=== PATIENT | female | born 1970 | race Caucasian/White ===

== ENCOUNTER → 2016-09-24 | Outpatient (REF) | payer MEDICARE, BC, OTHER ==
[~2016-09-24] MED LIST: AMBI10TA; AMIT10TA2 OR; ATIV1TAB2; LYRI150C; LYRI150C OR; OXYC10TA97; OXYC10TA97 OR; OXYC5CAP4; OXYC5CAP4 OR; SOMA350T; VICO5TAB
== END ==
LOC: M LAB REF 15:10
PROVIDERS: ATTEND Ophthalmology
DX: H02.834 Dermatochalasis of left upper eyelid (principal); H02.831 Dermatochalasis of right upper eyelid

== ENCOUNTER → 2018-03-14 | Outpatient (CLI) | payer MEDICARE, BC, OTHER ==
[2018-03-14 10:58] LABS: HEMATOCRIT 37.2 % (36.0-47.0); HEMOGLOBIN 12.2 g/dl (12.0-15.5); MEAN CORPUSCULAR HEMOGLOBIN 27.9 pg (27.0-33.0); MEAN CORPUSCULAR HGB CONC 32.8 g/dl (32.0-36.5); MEAN CORPUSCULAR VOLUME 84.9 fl (80.0-96.0); PLATELET COUNT, AUTOMATED 250 10^3/uL (150-450); RED BLOOD COUNT 4.38 10^6/uL (4.00-5.40); RED CELL DISTRIBUTION WIDTH 14.4 % (11.5-14.5); WHITE BLOOD COUNT 8.4 10^3/uL (4.0-10.0)
[2018-03-14 11:18] LABS: ESTIMATED AVERAGE GLUCOSE 120 MG/DL (60-110); HEMOGLOBIN A1c 5.8 %
[2018-03-14 11:32] LABS: ALBUMIN 3.5 GM/DL (3.2-5.2); ALBUMIN/GLOBULIN RATIO 1.21 (1.00-1.93); ALKALINE PHOSPHATASE 122 U/L (45-117); ALT/SGPT 19 U/L (12-78); ANION GAP 8 MEQ/L (8-16); AST/SGOT 19 U/L (7-37); BILIRUBIN,TOTAL 0.2 MG/DL (0.2-1.0); BLOOD UREA NITROGEN 10 MG/DL (7-18); CALCIUM LEVEL 7.9 MG/DL (8.5-10.1); CARBON DIOXIDE LEVEL 27 MEQ/L (21-32); CHLORIDE LEVEL 102 MEQ/L (98-107); CHOLESTEROL LEVEL 189 MG/DL (<200); CHOLESTEROL RISK RATIO 2.223 (<5); CREATININE FOR GFR 0.72 MG/DL (0.55-1.30); GLOMERULAR FILTRATION RATE > 60.0 (>58); GLUCOSE, FASTING 91 MG/DL (70-100); HDL CHOLESTEROL 85 MG/DL (>40); LDL CHOLESTEROL 71 MG/DL (<100); NON-HDL-C 104 MG/DL; POTASSIUM SERUM 4.3 MEQ/L (3.5-5.1); SODIUM LEVEL 137 MEQ/L (136-145); TOTAL PROTEIN 6.4 GM/DL (6.4-8.2); TRIGLYCERIDES LEVEL 164 MG/DL (<150)
[2018-03-14 11:33] LABS: TOTAL 25(OH) VITAMIN D 60.7 NG/ML (30.0-100.0)
== END ==
LOC: M LAB 09:41
DX: I10 Essential (primary) hypertension (principal); R53.83 Other fatigue; E03.9 Hypothyroidism, unspecified
CPT/HCPCS: 71046

== ENCOUNTER 2019-01-13 11:59 | Inpatient (IN) | payer MEDICARE, BC, OTHER ==
[~2019-01-13] VITALS: Ht 149.9 cm; Wt 69.8 kg
[2019-01-13 12:21] VITALS: O2SAT 70
[2019-01-13] MEDS: IPRATROPIUM 0.5MG/ALBUTEROL 2.5MG INH SOL UD 3ML (DUONEB)(J7620) NEB PRN ×3 (12:40→15:35)
[2019-01-13] MEDS ORDERED: GABA600T4 PO (12:41)
[2019-01-13] MEDS ORDERED: PRAV40TA2 PO (12:41)
[2019-01-13] MEDS ORDERED: AMLO5TAB6 PO (12:41)
[2019-01-13] MEDS ORDERED: MORP30TASA PO (12:41)
[2019-01-13] MEDS ORDERED: PANT40TA3 PO (12:41)
[2019-01-13] MEDS ORDERED: ROPI1TAB PO (12:41)
[2019-01-13] MEDS ORDERED: VITA500045 PO (12:41)
[2019-01-13] MEDS ORDERED: OXCA150T21 OR (12:41)
[2019-01-13] MEDS ORDERED: FLUO20CA19 PO (12:41)
[2019-01-13] MEDS ORDERED: OXYC-517 PO (12:41)
[2019-01-13] MEDS ORDERED: methylPREDNISolone INJ 125 MG/2 ML VIAL (J2930) IV ONE (12:45)
[2019-01-13 12:48] LABS: BASO # 0.1 10^3/uL (0.0-0.2); BASO % 0.3 % (0.0-1.0); HEMATOCRIT 34.9 % (36.0-47.0); HEMOGLOBIN 11.7 g/dl (12.0-15.5); LYMPH # 1.7 10^3/uL (1.5-5.0); LYMPH % 7.9 % (24.0-44.0); MEAN CORPUSCULAR HEMOGLOBIN 28.1 pg (27.0-33.0); MEAN CORPUSCULAR HGB CONC 33.5 g/dl (32.0-36.5); MEAN CORPUSCULAR VOLUME 83.7 fl (80.0-96.0); MONO # 0.9 10^3/uL (0.0-0.8); MONO % 4.1 % (0.0-5.0); NEUTROPHILS # 18.9 10^3/uL (1.5-8.5); NEUTROPHILS % 86.9 % (36.0-66.0); PLATELET COUNT, AUTOMATED 326 10^3/uL (150-450); RED BLOOD COUNT 4.17 10^6/uL (4.00-5.40); WHITE BLOOD COUNT 21.8 10^3/uL (4.0-10.0)
--- NOTE | 2019-01-13 12:50 | REP ---
Portable chest, 12:36 p.m., single AP view with the the patient sitting: Comparison is the PA and lateral chest of 03/14/2018. There is an incomplete inspiratory effort with under aeration of the lung vu. Cardiac size is normal. The margaret, mediastinum, skeletal structures are unremarkable. There is a electronic power pack superimposed over the left lung apex. Impression: Incomplete inspiratory effort. Lung vu are under aerated. Electronically Signed by Krish Lucia MD 01/13/2019 12:42 P
[2019-01-13 13:27] LABS: ALBUMIN 2.6 GM/DL (3.2-5.2); ALT/SGPT 30 U/L (12-78); BILIRUBIN,DIRECT < 0.1 MG/DL (0.0-0.2); BILIRUBIN,TOTAL 0.8 MG/DL (0.2-1.0); BLOOD UREA NITROGEN 10 MG/DL (7-18); CALCIUM LEVEL 8.6 MG/DL (8.5-10.1); CARBON DIOXIDE LEVEL 23 MEQ/L (21-32); CHLORIDE LEVEL 97 MEQ/L (98-107); CK-MB VALUE MASS 6.6 NG/ML (<3.6); CPK CREATINE PHOSPHOKINASE 611 U/L (26-192); CREATININE FOR GFR 0.73 MG/DL (0.55-1.30); GLOMERULAR FILTRATION RATE > 60.0 (>51); GLUCOSE, FASTING 103 MG/DL (70-100); MB/CK RELATIVE INDEX 1.08 (< OR =4); NT-PRO BNP 3987 PG/ML (<125); POTASSIUM SERUM 5.9 MEQ/L (3.5-5.1); SODIUM LEVEL 130 MEQ/L (136-145); THYROID STIMULATING HORMONE 0.272 uIU/ML (0.358-3.740); TOTAL PROTEIN 6.9 GM/DL (6.4-8.2); TROPONIN I < 0.02 NG/ML (< 0.10)
[2019-01-13] MEDS ORDERED: ISOVUE-370 76% 100ML VIAL (Q9967) As Ordered ONE (13:42)
[2019-01-13] MEDS ORDERED: BIOT2500 PO (13:45)
[2019-01-13] MEDS ORDERED: CYAN100050 PO (13:45)
[2019-01-13] MEDS ORDERED: NS 1,910 ML in IV 1 EA IV ONE (14:30)
[2019-01-13] MEDS ORDERED: PIPERACILLIN/TAZOBACTAM SOD 4.5 GM in D5W MINI-BAG PLUS 50 ML IV ONE (14:30)
--- NOTE | 2019-01-13 15:28 | REP ---
CT ANGIOGRAM OF THE CHEST: TECHNIQUE: Axial contrast enhanced images from the thoracic inlet to the upper abdomen using 100 mL Isovue 370 intravenous contrast material with multiplanar reformations. There is no CT evidence of pulmonary embolism. There is no thoracic aortic aneurysm or dissection. Heart is not significantly enlarged. There is no pleural or pericardial effusion. No significant mediastinal, hilar, or chest wall lymphadenopathy is seen. Diffuse alveolar infiltrates are seen bilaterally. The patient has had a prior cholecystectomy. Other visualized upper abdominal structures appear unremarkable. IMPRESSION: No CT evidence of pulmonary embolism or aortic dissection. Heart normal in size. No pleural effusion. Diffuse bilateral alveolar infiltrates. Electronically Signed by Krish Dunham MD 01/14/2019 06:08 P
[2019-01-13] MEDS ORDERED: ALBUTEROL SULFATE 2.5 MG/0.5 ML INH NEB SOLN NEB PRN (16:00)
[2019-01-13] MEDS: NS 1,000 ML IV SCH (16:00)
[2019-01-13] MEDS: IPRATROPIUM 0.5MG/ALBUTEROL 2.5MG INH SOL UD 3ML (DUONEB)(J7620) NEB SCH ×3 (16:00→23:30)
[2019-01-13] MEDS: GABAPENTIN 400 MG CAP PO SCH ×2 (17:59→20:01)
[2019-01-13 18:41] LABS: AMPHETAMINES LEVEL URINE NEGATIVE (NEGATIVE); BARBITURATES URINE NEGATIVE (NEGATIVE); BENZODIAZEPINES URINE NEGATIVE (NEGATIVE); CANNABINOIDS URINE NEGATIVE (NEGATIVE); COCAINE METABOLITE URINE NEGATIVE (NEGATIVE); METHADONE URINE NEGATIVE (NEGATIVE); OPIATES URINE POSITIVE (NEGATIVE); PHENCYCLIDINE URINE NEGATIVE (NEGATIVE)
[2019-01-13 19:04] VITALS: BP 147/69
[2019-01-13] MEDS: methylPREDNISolone INJ 125 MG/2 ML VIAL (J2930) IV SCH (19:59)
[2019-01-13 20:00] VITALS: BP 112/57
[2019-01-13] MEDS: MORPHINE 15 MG SA TAB PO SCH (20:01)
[2019-01-13] MEDS: PIPERACILLIN/TAZOBACTAM SOD 3.375 GM in D5W MINI-BAG PLUS 50 ML IV SCH (20:01)
[2019-01-13] MEDS: PRAVASTATIN 20 MG TAB PO SCH (20:01)
[2019-01-13] MEDS: PANTOPRAZOLE 40MG TAB (PROTONIX) PO SCH (20:02)
[2019-01-13] MEDS: FLUoxetine 20 MG CAP PO SCH (20:02)
[2019-01-13] MEDS: rOPINIRole 1MG TAB PO SCH (20:02)
--- NOTE | 2019-01-13 20:38 | ECGEPIP ---
[facility] - ED Test Date: 2019-01-13 Pat Name: NEREYDA TREVIZO Department: Room: - Gender: Female Medication Specialist: nancy : 1970 Requested By: NEVAEH Marcus Order Number: [id number] Reading MD: Montez Vo Measurements Intervals Renick Rate: 85 P: 21 MN: 112 QRS: 0 QRSD: 94 T: 13 QT: 393 QTc: 469 Interpretive Statements SINUS RHYTHM WITH SHORT MN INTERVAL MODERATE VOLTAGE CRITERIA FOR LVH, CONSIDER NORMAL VARIANT BENIGN EARLY REPOLARIZATION SIMILAR TO 03/14/18 Electronically Signed on 01-13-2019 20:37:45 EDT by Montez Vo
[2019-01-13] MEDS: OXcarbazepine 150 MG TAB PO SCH (20:54)
--- NOTE | 2019-01-13 20:56 | CR ---
DATE OF CONSULTATION: 01/13/2019 Patient is a 48-year-old female with past medical history of hypertension, cervical neuralgia, chronic pain medications, and presented to [facility] Emergency Room (ER) due to dyspnea for about a month that has become continuous for the past week. Patient reported initially that she had dyspnea for about a month, and she then stated that the dyspnea has been gradually worsening since summer. Patient has productive cough with dark/green-colored sputum. She also reported intermittent fever for the past 2 weeks with peak at 104 Fahrenheit. Patient had a fever the night prior to admission at 102.8 Fahrenheit. She also reported feeling cold with rigors. Night sweats were also present. Denies any chest pain; however, reported heaviness in the retrosternal region. For her dyspnea, reported aggravating factor including walking and lying down, alleviating factor of the dyspnea including sitting up. Denies any nausea, vomiting, or palpitations. It was noted upon presentation in the ER patient had soft blood pressure around 102/50, and patient also reported lightheadedness and dizziness as well. In the ER, patient's oxygen saturation was down to 70% on room air. With oxygen, oxygen saturation increased to about 92%. Patient was subsequently admitted to the hospital, and the pulmonary team was called for a consultation. Patient reported one pack per day tobacco use for the past 36 years. She reported she was trying to switch to electronic cigarettes. She reported electronic cigarette use for the past 2 years and last vaped a few weeks ago. She stopped, as she could not inhale the vape due to coughing. Patient reported the last vape more than 90 days ago. Patient denies any recent travel history or any travel history outside of the [facility] within the past year. Denies any recent sick contacts. PAST MEDICAL HISTORY: 1. Osteoarthritis of the neck. 2. Trochanteric bursitis of the left hip. 3. History of sinusitis. 4. History of bronchitis. 5. History of insomnia. 6. History of appendicitis. 7. History of reported cholelithiasis. 8. 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 9. Tobacco use disorder. 10. Restless leg syndrome. 11. Vitamin D deficiency. 12. Occipital neuralgia. PAST SURGICAL HISTORY: 1. Two sections, one in 1990, one in 1992. 2. Appendectomy in 1981. 3. Cholecystectomy in 1991. 4. Multiple cranial surgeries, reported to be 11 of them done in [place] with two of them for decompression. The rest were reported to be nerve stimulator insertion and removal. It was noted that patient is also s/p trigeminal nerve release and scar neuroma excision. Currently has a dorsal column stimulator at the back of neck HOME MEDICATIONS: Amlodipine, Biotin, vitamin B12, vitamin D2, fluoxetine, gabapentin, morphine sulfate ER, oxcarbazepine, oxycodone, pantoprazole, pravastatin, ropinirole. ALLERGIES: Denies any known drug allergies. SOCIAL HISTORY: Patient smokes a pack of cigarettes per day for the past 36 years. Reported rarely drinks alcohol. She uses medical marijuana. She also uses electronic cigarettes for the past 2 years and recently quit. Reported last use more than 90 days ago. Patient has two daughters. Has two dogs that are vaccinated at home. Denies any other pets, including birds. Denies any recent sick contacts. It was noted that the patient's daughters were having sinusitis symptoms and were recently treated with antibiotics; however, they reported minimal contact with patient for the past month. REVIEW OF SYSTEMS: Positive for fever and feeling cold. Positive for night sweats. Denies rigors. Denies any weight changes. Chest: Positive for chest heaviness. Denies any chest pain. Lungs: Positive for shortness of breath and orthopnea. Musculoskeletal: Positive for bilateral osteoarthritis of the wrists and hands. Neurologic: Reported positive numbness or tingling in distal interphalangeal (DIP) digits, extending distally to finger tips. All other positive review of systems were listed in history of present illness (HPI). FAMILY HISTORY: Father from renal cell carcinoma at the age of 4444 years old. Mother has chronic obstructive pulmonary disease (COPD), hypertension, asthma, and pancreatic cancer. Denies any autoimmune family history, including mixed connective tissue disease. PHYSICAL EXAMINATION: VITAL SIGNS: Temperature 97.6, pulse 80, respiratory rate 28, blood pressure 105/59, pulse oximetry 91% on 6 liters nasal cannula. GENERAL: Patient is alert. Appeared to be in mild distress. She is lying in the bed with daughter in exam room. HEENT: Head normocephalic, atraumatic. Nasal cannula in place. Pupils equal and round bilaterally. Nasal mucosa appears to be moist and pink. NECK: Supple. Trachea midline. No obvious jugular venous distention (JVD) noted. CHEST: Fine crackles bilaterally with diffuse fine crackles on the left and fine crackles extending distally to upper two-third of the lung field on right. No dullness to percussion bilaterally. Mild accessory muscle use. Symmetrical excursion. Normal inspiratory to expiratory (I-to-E) ratio. HEART: Regular rate and rhythm. No murmur. Normal S1, S2. No rubs or gallops. ABDOMEN: Soft, nontender. No guarding or distention noted. EXTREMITIES: Bilateral radial pulse and pedal pulse palpated and equal. No obvious edema or swelling noted in bilateral lower extremities. LABORATORY DATA: CBC: WBC 21.8, hemoglobin 11.7, hematocrit 34.9. Platelets 326. BMP: Sodium 130, potassium 5.9, chloride 97, carbon dioxide 23, anion gap 10, BUN 10, creatinine 0.73, GFR greater than 60, fasting glucose 103, lactic acid 3.5; followup at 4 hours was 1.3. Calcium 8.6. Direct bilirubin less than 0.1, AST 97, ALT 30, alkaline phosphatase 107, total creatine kinase 611, CK-MB 6.6, troponin less than 0.02. BNP 3987, total protein 6.9, albumin 2.6, procalcitonin pending. TSH 0.272. Toxicology screen positive for urine opiates. Negative for methadone, barbiturates, PCP, amphetamine, benzodiazepine, cocaine, and cannabinoids. Urine Legionella antigen pending. Blood gas shows pH 7.43, pO2 of 57, pCO2 of 33, bicarbonate 22. CTA showed bilateral infiltrates, more prominent in the superior lung vu. Chest x-ray showed lung vu under aerated. I reviewed chest CTA with the supervising attending, Dr. Barrera. ASSESSMENT AND PLAN: Patient is a 48 year old female with chronic tobacco use history about 1 packX 36 years history and 2 year of electronic cigarette use presented to [facility] ER due to dyspnea. Patient was noted to be hypotensive in the ER and received fluid bolus Oxygen saturation upon presentation on room air was around 70%. Her oxygen saturation improved to about 91% on oxygen support(6L nasal cannula), and CTA showed bilateral pulmonary infiltrates. 1. Acute hypoxic respiratory failure secondary to cryptogenic organizing pneumonia, likely due to vape use. Chest CTA showed bilateral infiltrates, more prominent on superior lung vu. Patient was originally saturating in 70% on room air. With oxygen support, patient is currently saturating well, around 91%-92% on 6 liters of nasal cannula. Other possible etiologies, although less likely, including histo, blasto, coccidiomycosis infection. Patient reported no travel history outside of the [facility] within the past year. It was noted that patient had prior hospitalizations, which was reported to be "fluid around the heart." Patient was transferred to [facility] at that time. She reported she received antibiotics without any pericardiocentesis. Orders to obtain inpatient records for her hospitalization at [facility] in 2014 was ordered. Respiratory virus panel was negative with two blood sugar pending. Procalcitonin also pending. Solu-Medrol 60 mg intravenous (IV) every 6 scheduled was ordered by the hospitalist team, and patient will also continue the nebulized treatment. Legionella urine antigen also pending. Oxygen therapy ordered. It was noted that patient initially had lactic acidosis with lactic acid at 3.5, however 4 hours follow-up was 1.3 2. Tobacco use disorder. Patient has a history of tobacco use, one pack per day for the past 36 years. Consider nicotine patch as needed for craving. 3. Electronic cigarettes/vape use. Patient reported vape use for the past 2 years. It is questionable that cryptogenic organizing pneumonia is due to the vape use. 4. Electrolyte disturbance, including hyponatremia and hyperkalemia. Potassium is 5.9 with sodium 130. Patient is currently on normal saline at rate of 100 mL per hour. Patient was in sinus rhythm at the time of the examination without any palpitations. It is questionable whether patient has some underlying adrenal insufficiency. 5. Elevated creatine kinase. Patient's creatine kinase is at 611. Will order urine myoglobin to rule out rhabdomyolysis, although it is unlikely. 6. Deep vein thrombosis (DVT) prophylaxis, sequential compression devices (SCDs) and thromboembolic deterrent stockings (TEDS) and Lovenox 40mg daily. 7. GI prophylaxis. Patient is on Protonix 40 mg by mouth daily. MTDD
--- NOTE | 2019-01-13 23:04 | HPEPDOC ---
General Date of Admission Jan 13, 2019 at 15:45 Date of Service: Jan 13, 2019 Chief Complaint The patient is a 48-year-old female admitted with a reason for visit of Chronic Pain. 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 It was accompanied with some nasal congestion and runny nose and some phlegm production no hemoptysis. Her SOB has been so bad that she has been unable to ambulate from bed to bathroom. She also had 2 episodes of fever at home in the past 2 weeks. Over the summer she did have 3 attacks of SOB which lasted about 2 to 3 days each time then got better spontaneously. On arrival to the ED her Spo2 was 70% in room air, she was severely tachypneic with elevated WBC and elevated lactate. Her blood pressure down trended in the ed to 90s/50s so was started on fluid loading for possible sepsis. She had a CT angio of the chest done. Which is negative for pulmonary embolism but showed diffuse pulmonary infiltrates. She was admitted for Acute hypoxic respiratory failure and possible pneumonia and sepsis. Home Medications Scheduled Amlodipine Besylate (Amlodipine Besylate) 5 Mg Tablet, 5 MG PO QHS, (Reported) Biotin (Biotin) 2,500 Mcg Capsule, 2,500 MCG PO DAILY, (Reported) Cyanocobalamin (Vitamin B-12) (Vitamin B-12) 1,000 Mcg Tablet, 1,000 MCG PO DAILY, (Reported) Ergocalciferol (Vitamin D2) (Vitamin D2) 50,000 Unit Capsule, 50,000 UNIT PO QWEEK, (Reported) SATURDAYS Fluoxetine Hcl (Fluoxetine HCl) 20 Mg Capsule, 20 MG PO BID, (Reported) Gabapentin (Gabapentin) 600 Mg Tablet, 1,200 MG PO TID, (Reported) Morphine Sulfate (Morphine Sulfate ER) 30 Mg Tablet.er, 30 MG PO BID, (Reported) Oxcarbazepine (Oxcarbazepine) 150 Mg Tablet, 450 MG OR BID, (Reported) Pantoprazole Sodium (Pantoprazole Sodium) 40 Mg Tablet.dr, 40 MG PO QPM, (Repo rted) Pravastatin Sodium (Pravastatin Sodium) 40 Mg Tablet, 40 MG PO QHS, (Reported) Ropinirole HCl (Ropinirole HCl) 1 Mg Tablet, 1 MG PO QHS, (Reported) Scheduled PRN Oxycodone HCl (Oxycodone HCl) 5 Mg Tablet, 5 MG PO Q3HP PRN for PAIN, (Reported) Allergies Coded Allergies: No Known Drug Allergies (Verified Allergy, Unknown, 01/13/19) Past Medical History Medical History Occipital neuralgia s/p trigeminal ganglion release, has dorsum column stimulator in the back of head. Scar neuroma removal from the left. Scar was upto the trigeminal ganglion. hypertension RLS Chronic opioid dependence Surgical History c sections, Hysterectomy, appendectomy, cholecystectomy, implantation of nerve stimulator, trigeminal ganglion release, scar neuroma removal, multiple injections into the scar neuroma before removal. Family History Significant Family History: COPD (mother) Social History * Smoker: current smoker (currently e cigarettetes for 2 years , greater than 1 pack/ day for 35 years. ) Alcohol: Denies Drugs: denies Recent Travel/Sick Contacts: Reports: Recent sick contacts (grand children and daughter) A-FIB/CHADSVASC A-FIB History Current/History of A-Fib/PAF?: No Review of Systems Constitutional: Reports: Chills, Fever, Malaise, Weakness, Fatigue Eyes: Denies: Pain, Vision change ENT: Reports: Sinus Congestion; Denies: Head Aches, Epistaxis Skin: Denies: Rash, Lesions, Breakdown Pulmonary: Reports: Dyspnea, Cough Cardiovascular: Reports: Palpitations, Orthopnea, Lt Headedness Gastrointestinal: Denies: Nausea, Vomiting, Abdominal Pain, Diarrhea Genitourinary: Denies: Dysuria, Frequency, Incontinence, Retention Hematologic: Denies: Bruising, Bleeding Excessively Musculoskeletal: Reports: Neck Pain Neurological: Denies: Weakness, Numbness, Change in speech, Confusion Psych: Reports: Anxiety Physical Examination General Exam: Positive: Alert, Cooperative, Severe Distress (has 2 to 3 word corsational dyspnea) Eye Exam: Positive: PERRLA, Conjunctiva & lids normal, EOMI; Negative: Sclera icteric ENT Exam: Positive: Atraumatic, Mucous membr. moist/pink, Pharynx Normal Neck Exam: Positive: Supple; Negative: JVD, thyromegaly Chest Exam: Positive: Rales (diffuse cracles bilaterally) Heart Exam: Positive: Rate Normal, Regular Rhythm, Normal S1, Normal S2; Negative: Murmurs, Rubs Telemetry: Positive: No significant arrhythmia Abdomen Exam: Positive: Normal bowel sounds, Soft; Negative: Tenderness, Hepatospenomegaly Extremity Exam: Positive: Normal pulses; Negative: Clubbing, Cyanosis, Edema Skin Exam: Positive: Nl turgor and temperature; Negative: Breakdown, Lesion Vital Signs Vital Signs Date Time Temp Pulse Resp B/P (MAP) Pulse Ox O2 Delivery O2 Flow Rate FiO2 01/13/19 15:30 90 121/65 (83) 92 Nasal Cannula 6.0 01/13/19 12:41 24 01/13/19 12:21 98 01/13/19 11:59 98.8 Laboratory Data Labs 24H Laboratory Tests 2 01/13/19 12:15: Immature Granulocyte % (Auto) 0.8, White Blood Count 21.8H, Red Blood Count 4.17, Hemoglobin 11.7L, Hematocrit 34.9L, Mean Corpuscular Volume 83.7, Mean Corpuscular Hemoglobin 28.1, Mean Corpuscular Hemoglobin Concent 33.5, Red Cell Distribution Width 15.3H, Platelet Count 326, Neutrophils (%) (Auto) 86.9H, Lymphocytes (%) (Auto) 7.9L, Monocytes (%) (Auto) 4.1, Eosinophils (%) (Auto) 0.0, Basophils (%) (Auto) 0.3, Neutrophils # (Auto) 18.9H, Lymphocytes # (Auto) 1.7, Monocytes # (Auto) 0.9H, Eosinophils # (Auto) 0.0, Basophils # (Auto) 0.1, Nucleated Red Blood Cells % (auto) 0.0, Anion Gap 10, Glomerular Filtration Rate > 60.0, Lactic Acid Level 3.5*H, Calcium Level 8.6, Aspartate Amino Transf (AST/SGOT) 97H, Alanine Aminotransferase (ALT/SGPT) 30, Alkaline Phosphatase 107, Total Bilirubin 0.8, Direct Bilirubin < 0.1, Total Creatine Kinase 611H, Creatine Kinase MB 6.6H, Creatine Kinase MB Relative Index 1.08, Troponin I < 0.02, CT-Yhv-I-Type Natriuretic Peptide 3987H, Total Protein 6.9, Albumin 2.6L, Albumin/Globulin Ratio 0.60L, Thyroid Stimulating Hormone (TSH) 0.272L 01/13/19 12:44: POC pH (Misc Panel) 7.430, POC Base Excess (Misc Panel) -2.0, POC Saturated Percent O2 (Misc) 90L, POC pO2 (Misc Panel) 57.0L, POC pCO2 (Misc Panel) 33.3L, POC HCO3 (Misc Panel) 22.1, POC Total CO2 (Misc Panel) 23.0 CBC/BMP Laboratory Tests 01/13/19 12:15 Red Blood Count 4.17, Mean Corpuscular Volume 83.7, Mean Corpuscular Hemoglobin 28.1, Mean Corpuscular Hemoglobin Concent 33.5, Red Cell Distribution Width 15.3 H, Neutrophils (%) (Auto) 86.9 H, Lymphocytes (%) (Auto) 7.9 L, Monocytes (%) (Auto) 4.1, Eosinophils (%) (Auto) 0.0, Basophils (%) (Auto) 0.3, Neutrophils # (Auto) 18.9 H, Lymphocytes # (Auto) 1.7, Monocytes # (Auto) 0.9 H, Eosinophils # (Auto) 0.0, Basophils # (Auto) 0.1 Microbiology Microbiology 01/13/19 Respiratory Virus Panel (PCR) (JAEL) - Final, Complete 01/13/19 Blood Culture, Received Pending 01/13/19 Blood Culture, Received Pending Assessment/Plan 48 year old female smoker, with PMH of occipital neuralgia s/p trigeminal gangl ion release on the left, 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 It was accompanied with some nasal congestion and runny nose and some phlegm production no hemoptysis. Her SOB has been so bad that she has been unable to ambulate from bed to bathroom. She also had 2 episodes of fever at home in the past 2 weeks. Over the summer she did have 3 attacks of SOB which lasted about 2 to 3 days each time then got better spontaneously. On arrival to the ED her Spo2 was 70% in room air, she was severely tachypneic with elevated WBC and elevated lactate. Her blood pressure down trended in the ed to 90s/50s so was started on fluid loading for possible sepsis. She had a CT angio of the chest done. Which is negative for pulmonary embolism but showed diffuse pulmonary infiltrates. The bilateral infiltrates, more prominent on superior lung vu. She was admitted for Acute hypoxic respiratory failure and possible pneumonia and sepsis. Acute respiratory failure with hypoxia pulmonary consulted appreciate input. Differentials are cryptogenic organizing pneumonia, likely due to vape use. Other possible etiologies, although less likely, including histo, blasto cocc idiomycosis infection. resp viral panel is negative urine legionella ordered Bacterial infection is less likely but will empiricaly cover with antibiotics Zosyn will get echo. almost 40 pack year smoker quit about a month ago when she could not inhale the vapor any mo Possible Sepsis though less ikely from pneumonia was hypotensive in ED imprved with IVF. continue zosyn will check procalcitonin. Hyponatremia and hyperkalemia with hypotension will add on cortisol random to the admission blood work to rule out adrenal insufficiency continue NS. Occipital neuralgia s/p trigeminal nerve release and formation of scar neuroma which was also excised now has a dorsal column stimulator at the back of neck will hald the dose of MSContin and continue with oxycodone with less frequency. Did discuss th side effects of of high doses of narcotics on breathing. Restless leg syndrome continue home med Low TSH will check free t4 and ft3 may be sick euthyroid syndrome Plan / VTE VTE Prophylaxis Ordered?: Yes MARY HEADLEY MD Jan 13, 2019 16:37
[2019-01-13 23:59] VITALS: BP 110/55
[2019-01-14] MEDS: NS 1,000 ML IV SCH ×2 (00:41→12:32)
[2019-01-14] MEDS: methylPREDNISolone INJ 125 MG/2 ML VIAL (J2930) IV SCH ×4 (00:41→18:41)
[2019-01-14] MEDS: PIPERACILLIN/TAZOBACTAM SOD 3.375 GM in D5W MINI-BAG PLUS 50 ML IV SCH ×4 (03:04→20:34)
[2019-01-14 04:00] VITALS: BP 98/58
[2019-01-14] MEDS: IPRATROPIUM 0.5MG/ALBUTEROL 2.5MG INH SOL UD 3ML (DUONEB)(J7620) NEB SCH ×5 (04:11→20:26)
[2019-01-14 05:56] LABS: BASO % 0.1 % (0.0-1.0); HEMOGLOBIN 9.9 g/dl (12.0-15.5); LYMPH # 0.9 10^3/uL (1.5-5.0); LYMPH % 4.9 % (24.0-44.0); MEAN CORPUSCULAR HEMOGLOBIN 27.5 pg (27.0-33.0); MEAN CORPUSCULAR VOLUME 83.3 fl (80.0-96.0); MONO # 0.5 10^3/uL (0.0-0.8); MONO % 2.6 % (0.0-5.0); NEUTROPHILS # 16.8 10^3/uL (1.5-8.5); NEUTROPHILS % 91.6 % (36.0-66.0); PLATELET COUNT, AUTOMATED 263 10^3/uL (150-450); WHITE BLOOD COUNT 18.3 10^3/uL (4.0-10.0)
[2019-01-14 06:33] LABS: BLOOD UREA NITROGEN 8 MG/DL (7-18); CALCIUM LEVEL 7.9 MG/DL (8.5-10.1); CARBON DIOXIDE LEVEL 24 MEQ/L (21-32); CHLORIDE LEVEL 107 MEQ/L (98-107); CREATININE FOR GFR 0.43 MG/DL (0.55-1.30); GLOMERULAR FILTRATION RATE > 60.0 (>51); GLUCOSE, FASTING 136 MG/DL (70-100); POTASSIUM SERUM 3.7 MEQ/L (3.5-5.1); SODIUM LEVEL 137 MEQ/L (136-145)
[2019-01-14 08:00] VITALS: BP 119/70
[2019-01-14 08:06] LABS: FREE T3 1.2 PG/ML (2.2-4.0); FREE T4 0.91 NG/DL (0.76-1.46); THYROID STIMULATING HORMONE 0.149 uIU/ML (0.358-3.740)
[2019-01-14 08:52] LABS: CORTISOL BASELINE 16.1 UG/DL (4.3-22.4)
[2019-01-14] MEDS: GABAPENTIN 400 MG CAP PO SCH ×3 (09:09→20:39)
[2019-01-14] MEDS: OXcarbazepine 150 MG TAB PO SCH ×2 (09:10→20:39)
[2019-01-14] MEDS: MORPHINE 15 MG SA TAB PO SCH ×2 (09:11→20:39)
[2019-01-14] MEDS: FLUoxetine 20 MG CAP PO SCH ×2 (09:12→20:39)
[2019-01-14] MEDS: ENOXAPARIN 40 MG/0.4 ML SYRINGE (J1650) SC SCH (09:12)
[2019-01-14 09:50] LABS: ERYTHROCYTE SEDIMENTATION RATE 58 mm/hr (0-30)
--- NOTE | 2019-01-14 10:38 | IPNPDOC ---
Subjective Date Seen The patient was seen on 01/14/19. Subjective Chief Complaint/HPI Still with 6 l comfort flow maintaining over 90%.at rest but spo2 drops to 70% with ambulation to bathroom even with 6 liters. Continues to have dry cough, no hemoptysis. No fever or chills, complains of pain in the back of her head and neck. She also says that her chest hurts from the coughing. Objective Physical Examination General Exam: Positive: Alert, Cooperative, Severe Distress (has 2 to 3 word corsational dyspnea) Eye Exam: Positive: PERRLA, Conjunctiva & lids normal, EOMI; Negative: Sclera icteric ENT Exam: Positive: Atraumatic, Mucous membr. moist/pink, Pharynx Normal Neck Exam: Positive: Supple; Negative: JVD, thyromegaly Chest Exam: Positive: Rales (diffuse cracles bilaterally) Heart Exam: Positive: Rate Normal, Regular Rhythm, Normal S1, Normal S2; Negative: Murmurs, Rubs Telemetry: Positive: No significant arrhythmia Abdomen Exam: Positive: Normal bowel sounds, Soft; Negative: Tenderness, Hepatospenomegaly Extremity Exam: Positive: Normal pulses; Negative: Clubbing, Cyanosis, Edema Skin Exam: Positive: Nl turgor and temperature; Negative: Breakdown, Lesion Assessment /Plan Assessment 48 year old female smoker, with PMH of occipital neuralgia s/p trigeminal ganglion release on the left, 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 It was accompanied with some nasal congestion and runny nose and some phlegm production no hemoptysis. Her SOB has been so bad that she has been unable to ambulate from bed to bathroom. She also had 2 episodes of fever at home in the past 2 weeks. Over the summer she did have 3 attacks of SOB which lasted about 2 to 3 days each time then got better spontaneously. On arrival to the ED her Spo2 was 70% in room air, she was severely tachypneic with elevated WBC and elevated lactate. Her blood pressure down trended in the ed to 90s/50s so was started on fluid loading for possible sepsis. She had a CT angio of the chest done. Which is negative for pulmonary embolism but showed diffuse pulmonary infiltrates. The bilateral infiltrates, more prominent on superior lung vu. She was admitted for Acute hypoxic respiratory failure and possible pneumonia and sepsis. Acute respiratory failure with hypoxia pulmonary consulted appreciate input. Differentials are cryptogenic organizing pneumonia due to vape use/ less likely histo, blasto coccidiomycosis infection resp viral panel is negative urine legionella ordered Bacterial infection is less likely but will empirically cover with antibiotics Zosyn will get echo. Smoking almost 40 pack year smoker had switched to e cigarettes 2 years ago. quit about 1-2 months ago when she could not inhale the vapor any more Possible Sepsis though less likely from pneumonia was hypotensive in ED imprved with IVF. Also got steroids. continue zosyn procalcitonin pending Hyponatremia and hyperkalemia with hypotension improved however pateint is getting steroids. if patient continues to have recurrence of these electrolyte abnormalities off steroids will need evaluation for adrenal insufficiency at present cortisol is normal on steroids. Occipital neuralgia s/p trigeminal nerve release and formation of scar neuroma which was also excised now has a dorsal column stimulator at the back of neck will hald the dose of MS Contin and continue with oxycodone with less frequency. Did discuss th side effects of of high doses of narcotics on breathing. Restless leg syndrome continue home med Low TSH will check free t4 and ft3 may be sick euthyroid syndrome Plan/VTE VTE Prophylaxis Ordered?: Yes VS, I&O, 24H, Fishbone Vital Signs/I&O Vital Signs Date Time Temp Pulse Resp B/P (MAP) Pulse Ox O2 Delivery O2 Flow Rate FiO2 01/14/19 04:00 97.6 77 18 98/58 (71) 94 6.0 01/13/19 18:30 Nasal Cannula 01/13/19 12:21 98 I&O- Last 24 Hours up to 6 AM 01/14/19 05:59 Intake Total 3060 ml Output Total 240 ml Balance 2820 ml Laboratory Data 24H LABS Laboratory Tests 2 01/13/19 12:15: Immature Granulocyte % (Auto) 0.8, White Blood Count 21.8H, Red Blood Count 4.17, Hemoglobin 11.7L, Hematocrit 34.9L, Mean Corpuscular Volume 83.7, Mean Corpuscular Hemoglobin 28.1, Mean Corpuscular Hemoglobin Concent 33.5, Red Cell Distribution Width 15.3H, Platelet Count 326, Neutrophils (%) (Auto) 86.9H, Lymphocytes (%) (Auto) 7.9L, Monocytes (%) (Auto) 4.1, Eosinophils (%) (Auto) 0.0, Basophils (%) (Auto) 0.3, Neutrophils # (Auto) 18.9H, Lymphocytes # (Auto) 1.7, Monocytes # (Auto) 0.9H, Eosinophils # (Auto) 0.0, Basophils # (Auto) 0.1, Nucleated Red Blood Cells % (auto) 0.0, Anion Gap 10, Glomerular Filtration Rate > 60.0, Lactic Acid Level 3.5*H, Calcium Level 8.6, Aspartate Amino Transf (AST/SGOT) 97H, Alanine Aminotransferase (ALT/SGPT) 30, Alkaline Phosphatase 107, Total Bilirubin 0.8, Direct Bilirubin < 0.1, Total Creatine Kinase 611H, Creatine Kinase MB 6.6H, Creatine Kinase MB Relative Index 1.08, Troponin I < 0.02, OF-Jbn-B-Type Natriuretic Peptide 3987H, Total Protein 6.9, Albumin 2.6L, Albumin/Globulin Ratio 0.60L, Thyroid Stimulating Hormone (TSH) 0.272L 01/13/19 12:44: POC pH (Misc Panel) 7.430, POC Base Excess (Misc Panel) -2.0, POC Saturated Percent O2 (Misc) 90L, POC pO2 (Misc Panel) 57.0L, POC pCO2 (Misc Panel) 33.3L, POC HCO3 (Misc Panel) 22.1, POC Total CO2 (Misc Panel) 23.0 01/13/19 17:20: Lactic Acid Followup at 4 Hours 1.3 01/13/19 17:56: Urine Amphetamines Screen NEGATIVE, Urine Benzodiazepines Screen NEGATIVE, Urine Opiates Screen POSITIVEH, Urine Methadone Screen NEGATIVE, Urine Barbiturates Screen NEGATIVE, Urine Phencyclidine Screen NEGATIVE, Urine Cocaine Metabolite Screen NEGATIVE, Urine Cannabinoids Screen NEGATIVE 01/14/19 05:38: Immature Granulocyte % (Auto) 0.8, White Blood Count 18.3H, Red Blood Count 3.60L, Hemoglobin 9.9L, Hematocrit 30.0L, Mean Corpuscular Volume 83.3, Mean Corpuscular Hemoglobin 27.5, Mean Corpuscular Hemoglobin Concent 33.0, Red Cell Distribution Width 15.2H, Platelet Count 263, Neutrophils (%) (Auto) 91.6H, Lymphocytes (%) (Auto) 4.9L, Monocytes (%) (Auto) 2.6, Eosinophils (%) (Auto) 0.0, Basophils (%) (Auto) 0.1, Neutrophils # (Auto) 16.8H, Lymphocytes # (Auto) 0.9L, Monocytes # (Auto) 0.5, Eosinophils # (Auto) 0.0, Basophils # (Auto) 0.0, Nucleated Red Blood Cells % (auto) 0.0 CBC/BMP Laboratory Tests 01/13/19 12:15 Red Blood Count 4.17, Mean Corpuscular Volume 83.7, Mean Corpuscular Hemoglobin 28.1, Mean Corpuscular Hemoglobin Concent 33.5, Red Cell Distribution Width 15.3 H, Neutrophils (%) (Auto) 86.9 H, Lymphocytes (%) (Auto) 7.9 L, Monocytes (%) (Auto) 4.1, Eosinophils (%) (Auto) 0.0, Basophils (%) (Auto) 0.3, Neutrophils # (Auto) 18.9 H, Lymphocytes # (Auto) 1.7, Monocytes # (Auto) 0.9 H, Eosinophils # (Auto) 0.0, Basophils # (Auto) 0.1 01/14/19 05:38 Red Blood Count 3.60 L, Mean Corpuscular Volume 83.3, Mean Corpuscular Hemoglobin 27.5, Mean Corpuscular Hemoglobin Concent 33.0, Red Cell Distribution Width 15.2 H, Neutrophils (%) (Auto) 91.6 H, Lymphocytes (%) (Auto) 4.9 L, Monocytes (%) (Auto) 2.6, Eosinophils (%) (Auto) 0.0, Basophils (%) (Auto) 0.1, Neutrophils # (Auto) 16.8 H, Lymphocytes # (Auto) 0.9 L, Monocytes # (Auto) 0.5, Eosinophils # (Auto) 0.0, Basophils # (Auto) 0.0 Microbiology Microbiology 01/13/19 Respiratory Virus Panel (PCR) (JAEL) - Final, Complete 01/13/19 Blood Culture, Received Pending 01/13/19 Blood Culture, Received Pending RAY,MARY MD Jan 14, 2019 06:23
[2019-01-14 12:00] VITALS: BP 112/58
--- NOTE | 2019-01-14 12:42 | IPN ---
DATE OF SERVICE: 01/14/2019 HISTORY OF PRESENT ILLNESS: The patient is sitting at bedside today. She reported that she still has dyspnea during rest, but it has improved compared to before hospitalization. She reported that the dyspnea is worse with exertion; however, she does not have any cough or sputum production anymore. She reported that chest heaviness is still present. Denies any chest pain. It was noted yesterday that the patient desaturates while walking; however, the patient was not wearing a pulse oximetry at that time. The patient reported that her chronic left sided occipital headache is still present, as well as her chronic decreased appetite. Denies any nausea or vomiting, lightheadedness or dizziness. It was noted that this morning the patient's blood pressure was soft, around 98/58 at 4:00 a.m. Remeasure manual blood pressure was within normal range. PHYSICAL EXAMINATION: VITAL SIGNS: Temperature 97.2, pulse 101, respiratory rate 20, blood pressure 119/70, pulse oximetry 95% on 6 liters nasal cannula. GENERAL: Alert, lying on the bed. Appears to be in mild distress. HEENT: Head is normocephalic, atraumatic. Bilateral nares patent with nasal cannula in place. Pupils are equal and round bilaterally. Mucosa appears to be moist and pink. NECK: Supple. Trachea midline. No obvious jugular venous distention (JVD) noted. CHEST: The patient continues to have fine crackles bilaterally. Symmetric chest excursion with normal I:E ratio. Mild accessory muscle use with subcostal retractions. HEART: Tachycardic. Regular rhythm. No murmur. No rubs or gallops. ABDOMEN: Soft, nontender. No guarding or distention noted. EXTREMITIES: Bilateral radial pulse present and equal. No obvious edema or swelling noted in bilateral lower extremities. LABORATORY DATA: 01/14/2019 CBC showed WBC 18.3, hemoglobin 9.9, hematocrit 33.3, platelets 263. Neutrophil predominance with neutrophil percentage 91.6. Chemistry: Sodium 137, potassium 3.7, chloride 107, carbon dioxide 24, anion gap 6, BUN 8, creatinine 0.43, fasting glucose 136, GFR greater than 60, calcium 7.9, C-reactive protein 20, TSH 0.14, Free T4 0.9, Free T3 1.2, baseline cortisol 16.1. Chest CTA was reviewed again and showed bilateral diffuse ground glass opacities, as well as bilateral bronchiectasis. ASSESSMENT AND PLAN: The patient is a 48-year-old female with chronic tobacco use history, as well as 2 years of electronic cigarette use who presented with dyspnea. She initially had periods of oxygen desaturations on room air with oxygen saturation at 70%. She remains to saturate well on 6 liters of nasal cannula. 1. Acute hypoxic respiratory failure with diffuse inflammatory process noted on lung CT, which may be secondary to chronic interstitial disease/autoimmune disease versus inhalation injury. The patient continues to saturate well on 6 liters of nasal cannula, around 95%. She reported still having some resting dyspnea that is worsened with activity; however, she reported that overall her dyspnea has improved. Inpatient records from [facility] in 2014 were obtained that showed the patient's discharge diagnosis of myopericarditis. The patient received a heart catheterization and V/Q scan, which both showed no significant abnormalities. Procalcitonin pending. The patient will continue the Solu-Medrol 60 mg IV every 6 hours, nebulized treatment, followed by Acapella. Other connective tissue disease versus other rheumatology workup was ordered, including C-ANCA, P-ANCA, HERLINDA titer, anti-double stranded DNA, anti-lopez antibody and scleroderma antibody. Rheumatoid factor, anti [employer] antibody, ESR, C-reactive protein were also ordered. Cesar's workup, scleroderma crest syndrome, lupus, rheumatoid arthritis, mixed connective tissue disease, and microscopic polyangiitis. Sputum culture and AFB culture pending. The patient reports achy pain in bilateral anterior thigh region; however, it is questionable whether the achy pain is secondary to rheumatologic disease. We will continue to followup with rheumatologic lab workup. 2. Tobacco use disorder. The patient has a history of tobacco use, one pack per day for the past 36 years. No nicotine craving has been noted. 3. Electronic cigarettes/vape use. Electronic cigarettes used for the past 2 years. The patient's dyspnea with CT lung findings may be secondary to inhalation injury. 4. Deep vein thrombosis (DVT). Lovenox 40 mg daily subcutaneous. 5. Gastrointestinal prophylaxis. Protonix 40 mg by mouth daily. MTDD
[2019-01-14 14:07] LABS: APPEARANCE, URINE CLEAR (CLEAR); BACTERIA, URINE AUTO NEGATIVE (NEGATIVE); BILIRUBIN, URINE AUTO NEGATIVE (NEGATIVE); BLOOD, URINE BLOOD NEGATIVE (NEGATIVE); COLOR, URINE YELLOW (YELLOW); GLUCOSE, URINE (UA) AUTO NEGATIVE (NEGATIVE); KETONE, URINE AUTO TRACE mg/dL (NEGATIVE); LEUKOCYTE ESTERASE, URINE AUTO NEGATIVE (NEGATIVE); NITRITE, URINE AUTO NEGATIVE (NEGATIVE); PROTEIN, URINE AUTO NEGATIVE (NEGATIVE); RBC, URINE AUTO 2 /HPF (0-3); SPECIFIC GRAVITY URINE AUTO 1.029 (1.002-1.035); SQUAMOUS EPITHELIAL CELL UR AU 3 /HPF (0-6); WBC, URINE AUTO 1 /HPF (0-3)
[2019-01-14 16:00] VITALS: BP 115/88
[2019-01-14] MEDS: oxyCODONE 5MG TAB PO PRN ×2 (16:27→21:39)
[2019-01-14 20:00] VITALS: BP 129/71
[2019-01-14] MEDS: PANTOPRAZOLE 40MG TAB (PROTONIX) PO SCH (20:37)
[2019-01-14] MEDS: PRAVASTATIN 20 MG TAB PO SCH (20:38)
[2019-01-14] MEDS: rOPINIRole 1MG TAB PO SCH (20:39)
--- NOTE | 2019-01-14 21:24 | ECHO ---
DATE OF PROCEDURE: 01/14/2019 Date of : 1970 Age: 48 REFERRING PHYSICIAN: Silvia Hitchcock MD PATIENT LOCATION: Room 3221 REASON FOR ECHOCARDIOGRAM: Shortness of breath. 2D MEASUREMENTS: IVS: 1.1 cm LV: 4.3 cm LVPW: 1.1 cm LA: 3.8 cm Aorta: 3.0 cm IVC: 2.0 cm DOPPLER MEASUREMENTS: Peak velocity across the aortic valve: 1.5 m/s Peak velocity across the LVOT: 1.3 m/s Peak gradient across the aortic valve: 9 mmHg Mean gradient across the aortic valve: 5 mmHg Mitral E: 0.95, Mitral A: 0.83 with a ratio of 1.1 Maximum tricuspid valve velocity: 3.0 m/s 2D COMMENTS: 1. Normal left ventricular size, wall thickness, and normal global left ventricular systolic function. The estimated left ventricular systolic ejection fraction is 65-70%. 2. Normal left atrium. Normal right atrium and right ventricle. 3. The atrial septum appeared to be normal without evidence of defect or shunt. 4. Normal aortic root. 5. No pericardial effusion seen. 6. Mildly calcified aortic valve with normal leaflet excursion. Mildly calcified mitral annulus with normal anterior mitral valve leaflet motion. Normal tricuspid valve. The pulmonic valve and proximal pulmonary artery branches were not well visualized. 7. The inferior vena cava was mildly enlarged, central venous pressure might be elevated. DOPPLER: It detects trace aortic regurgitation, trace mitral regurgitation, and mild tricuspid regurgitation. The calculated pulmonary artery systolic pressure varies between 40-50 mmHg. Abnormal relaxation pattern was noted across the mitral valve annulus consistent with features of grade 2 left ventricular diastolic dysfunction, left ventricular end-diastolic pressure might be elevated. IMPRESSION 1. Normal global left ventricular systolic function. There are some features of left ventricular diastolic dysfunction, grade 2. A pseudo normal pattern was noted across the mitral valve leaflets and mitral valve annulus. 2. Aortic valve sclerosis with trace aortic regurgitation and trivial aortic stenosis. 3. Mitral annulus calcification with trace mitral regurgitation. 4. Mild tricuspid regurgitation with probably moderate pulmonary hypertension. 5. The inferior vena cava was mildly enlarged, central venous pressure might be elevated.
[2019-01-14 23:59] VITALS: BP 131/70
[2019-01-15] MEDS: methylPREDNISolone INJ 125 MG/2 ML VIAL (J2930) IV SCH ×4 (00:07→18:40)
[2019-01-15] MEDS: NS 1,000 ML IV SCH (00:12)
[2019-01-15] MEDS: IPRATROPIUM 0.5MG/ALBUTEROL 2.5MG INH SOL UD 3ML (DUONEB)(J7620) NEB SCH ×7 (00:54→22:26)
[2019-01-15] MEDS: PIPERACILLIN/TAZOBACTAM SOD 3.375 GM in D5W MINI-BAG PLUS 50 ML IV SCH ×4 (03:49→21:56)
[2019-01-15 04:00] VITALS: BP 127/79
[2019-01-15] MEDS: oxyCODONE 5MG TAB PO PRN ×3 (04:00→21:57)
[2019-01-15 05:29] LABS: BASO % 0.2 % (0.0-1.0); HEMATOCRIT 29.7 % (36.0-47.0); HEMOGLOBIN 9.8 g/dl (12.0-15.5); LYMPH # 0.8 10^3/uL (1.5-5.0); LYMPH % 4.1 % (24.0-44.0); MEAN CORPUSCULAR VOLUME 84.9 fl (80.0-96.0); MONO # 0.6 10^3/uL (0.0-0.8); MONO % 3.1 % (0.0-5.0); NEUTROPHILS # 17.3 10^3/uL (1.5-8.5); NEUTROPHILS % 91.8 % (36.0-66.0); PLATELET COUNT, AUTOMATED 284 10^3/uL (150-450); WHITE BLOOD COUNT 18.8 10^3/uL (4.0-10.0)
[2019-01-15 05:52] LABS: BLOOD UREA NITROGEN 10 MG/DL (7-18); CALCIUM LEVEL 8.3 MG/DL (8.5-10.1); CARBON DIOXIDE LEVEL 27 MEQ/L (21-32); CHLORIDE LEVEL 109 MEQ/L (98-107); CREATININE FOR GFR 0.45 MG/DL (0.55-1.30); GLOMERULAR FILTRATION RATE > 60.0 (>51); GLUCOSE, FASTING 137 MG/DL (70-100); POTASSIUM SERUM 3.7 MEQ/L (3.5-5.1); SODIUM LEVEL 141 MEQ/L (136-145)
[2019-01-15 08:00] VITALS: BP 157/74
[2019-01-15] MEDS: ENOXAPARIN 40 MG/0.4 ML SYRINGE (J1650) SC SCH (08:33)
[2019-01-15] MEDS: OXcarbazepine 150 MG TAB PO SCH ×2 (08:33→21:56)
[2019-01-15] MEDS: FLUoxetine 20 MG CAP PO SCH ×2 (08:33→21:57)
[2019-01-15] MEDS: MORPHINE 15 MG SA TAB PO SCH ×2 (08:33→21:58)
[2019-01-15] MEDS: GABAPENTIN 400 MG CAP PO SCH ×3 (08:33→21:59)
--- NOTE | 2019-01-15 11:16 | IPNPDOC ---
Subjective Date Seen The patient was seen on 01/15/19. Subjective Chief Complaint/HPI Severe SOB of breath on minimal exertion. Remains of 6 liters of oxygen, no fever or chills, no cough. poor appetite, no nausea or vomiting, no abdominal pain or diarrhea. Objective Physical Examination General Exam: Positive: Alert, Cooperative, Mild Distress Eye Exam: Positive: PERRLA, Conjunctiva & lids normal, EOMI; Negative: Sclera icteric ENT Exam: Positive: Atraumatic, Mucous membr. moist/pink, Pharynx Normal Neck Exam: Positive: Supple; Negative: JVD, thyromegaly Chest Exam: Positive: Rales (diffuse cracles bilaterally on the upper part of the lungs. 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 It was accompanied with some nasal congestion and runny nose and some phlegm production no hemoptysis. Her SOB has been so bad that she has been unable to ambulate from bed to bathroom. She also had 2 episodes of fever at home in the past 2 weeks. Over the summer she did have 3 attacks of SOB which lasted about 2 to 3 days each time then got better spontaneously. On arrival to the ED her Spo2 was 70% in room air, she was severely tachypneic with elevated WBC and elevated lactate. Her blood pressure down trended in the ed to 90s/50s so was started on fluid loading for possible sepsis. She had a CT angio of the chest done. Which is negative for pulmonary embolism but showed diffuse pulmonary infiltrates. The bilateral infiltrates, more prominent on superior lung vu. She was admitted for Acute hypoxic respiratory failure and possible pneumonia and sepsis. Acute respiratory failure with hypoxia pulmonary consulted appreciate input. Differentials are cryptogenic organizing pneumonia due to vape use/ less likely histo, blasto coccidiomycosis infection resp viral panel is negative urine legionella ordered Bacterial infection is less likely but will empirically cover with antibiotics Zosyn. procalcitonin is 0.6 Echo : diastolic dysfunction grade 2 , moderate pulmonary hypertension 40 to 50 with possibly increased central venous pressure. EF normal. Smoking almost 40 pack year smoker had switched to e cigarettes 2 years ago. quit about 1-2 months ago when she could not inhale the vapor any more Possible Sepsis though less likely from pneumonia was hypotensive in ED improved with IVF. Also got steroids. continue zosyn Hyponatremia and hyperkalemia with hypotension improved however patient is getting steroids. if patient continues to have recurrence of these electrolyte abnormalities off steroids will need evaluation for adrenal insufficiency at present cortisol is normal on steroids. Occipital neuralgia s/p trigeminal nerve release and formation of scar neuroma which was also excised now has a dorsal column stimulator at the back of neck will hald the dose of MS Contin and continue with oxycodone with less frequency. Did discuss th side effects of of high doses of narcotics on breathing. Restless leg syndrome continue home med Low TSH will check free t4 and ft3 may be sick euthyroid syndrome will not start on medication right now. follow up as outpatient. Plan/VTE VTE Prophylaxis Ordered?: Yes VS, I&O, 24H, Fishbone Vital Signs/I&O Vital Signs Date Time Temp Pulse Resp B/P (MAP) Pulse Ox O2 Delivery O2 Flow Rate FiO2 01/15/19 09:55 22 3.0 01/15/19 08:00 97.2 87 157/74 (101) 96 01/13/19 18:30 Nasal Cannula 01/13/19 12:21 98 I&O- Last 24 Hours up to 6 AM 01/15/19 06:00 Intake Total 1886 ml Output Total 650 ml Balance 1236 ml Laboratory Data 24H LABS Laboratory Tests 2 01/14/19 12:29: Rheumatoid Factor < 10.0 01/15/19 05:10: Immature Granulocyte % (Auto) 0.8, White Blood Count 18.8H, Red Blood Count 3.50L, Hemoglobin 9.8L, Hematocrit 29.7L, Mean Corpuscular Volume 84.9, Mean Corpuscular Hemoglobin 28.0, Mean Corpuscular Hemoglobin Concent 33.0, Red Cell Distribution Width 15.5H, Platelet Count 284, Neutrophils (%) (Auto) 91.8H, Lymphocytes (%) (Auto) 4.1L, Monocytes (%) (Auto) 3.1, Eosinophils (%) (Auto) 0.0, Basophils (%) (Auto) 0.2, Neutrophils # (Auto) 17.3H, Lymphocytes # (Auto) 0.8L, Monocytes # (Auto) 0.6, Eosinophils # (Auto) 0.0, Basophils # (Auto) 0.0, Nucleated Red Blood Cells % (auto) 0.0, Anion Gap 5L, Glomerular Filtration Rate > 60.0, Blood Urea Nitrogen 10, Creatinine 0.45L, Sodium Level 141, Potassium Level 3.7, Chloride Level 109H, Carbon Dioxide Level 27, Calcium Level 8.3L CBC/BMP Laboratory Tests 01/15/19 05:10 Red Blood Count 3.50 L, Mean Corpuscular Volume 84.9, Mean Corpuscular Hemoglobin 28.0, Mean Corpuscular Hemoglobin Concent 33.0, Red Cell Distribution Width 15.5 H, Neutrophils (%) (Auto) 91.8 H, Lymphocytes (%) (Auto) 4.1 L, Monocytes (%) (Auto) 3.1, Eosinophils (%) (Auto) 0.0, Basophils (%) (Auto) 0.2, Neutrophils # (Auto) 17.3 H, Lymphocytes # (Auto) 0.8 L, Monocytes # (Auto) 0.6, Eosinophils # (Auto) 0.0, Basophils # (Auto) 0.0, Calcium Level 8.3 L Microbiology Microbiology 01/14/19 Acid Fast Stain, Received Pending 01/14/19 Mycobacterial Culture, Received Pending 01/14/19 Gram Stain, Received Pending 01/14/19 Sputum Culture, Received Pending 01/13/19 Respiratory Virus Panel (PCR) (JAEL) - Final, Complete 01/13/19 Blood Culture - Preliminary, Resulted No growth after 24 hours . All specim... 01/13/19 Blood Culture - Preliminary, Resulted No growth after 24 hours . All specim... MARY HEADLEY MD Jan 15, 2019 11:16
[2019-01-15 11:56] VITALS: BP 127/70
--- NOTE | 2019-01-15 12:40 | IPN ---
DATE: 01/15/2019 Ms. Colón feels somewhat better today. She still has significant dyspnea on exertion in short distances. She is also concerned because her oxygen saturations dropped with ambulation but notes "they come up quickly." Yesterday she complained of some weakness in her legs but feels that is better today. She is complaining of some abdominal soreness. She has a history of reflux but she is on her own medication in the hospital, states she has not had symptoms from that nor did she does have nausea or emesis. She still feels short of breath even at rest. She feels as if she cannot take in a deep breath. She does not have any pleuritic discomfort with taking in a deep breath. She continues to have a cough that at times is productive of a small amount of discolored sputum. No hemoptysis. No other concerns expressed. OBJECTIVE/PHYSICAL EXAMINATION: General: Ms. Colón is sitting in bed in no acute distress. She can complete full sentences. No cough with the evaluation. Vital signs: Temperature 97.2, maximum temperature (Tmax) 98, pulse 87, respiratory rate 22, SpO2 96% on high-flow at 6 liters. She is 92-93% on 3 liters. HEENT: Anicteric. Nares: Patent bilaterally. Oropharynx clear. No lesions. Neck: Supple, without apparent jugular venous distention (JVD), thyromegaly or masses. Trachea is midline. Lymphs: Without cervical or supraclavicular lymphadenopathy. Lungs: Symmetric excursion, fair air entry, fine crackles all the way up on the left and at the top about prison down from the top on the right. No apparent change in exam. No rhonchi or wheezes. Normal I:E. No accessory muscle usage or retractions. Cardiovascular: Regular rate and rhythm with a normal S1 and S2. No murmur, rub or gallop appreciated. Abdomen: Normoactive bowel sounds, soft, nondistended, nontender. Extremities: Warm and well-perfused without clubbing, cyanosis or edema. LABORATORY DATA: CBC from this morning showed a hemoglobin 9.8, hematocrit 29.7, platelet count 284,000, white blood cell count 18,800 with a differential of 92% neutrophils, 4% lymphocytes, and 3% monocytes. Chemistry show sodium 141, potassium 3.7, chloride 109, bicarbonate 27, anion gap 5, BUN 10, creatinine 0.45, glucose 137, calcium 8.3. CRP is elevated at 20.30. Procalcitonin came back 0.62. Urinalysis showed only 2 RBCs. Yesterday intake and output was 1636 in and 650 out making her positive 986. Thus far today 1130 in and 300 out making her positive 830. RF less than 10. All other labs pending. IMPRESSION: 1. Acute hypoxemic respiratory failure, unknown etiology. It is appropriately replaced. 2. Abnormal chest CT scan with ground-glass opacities in the upper lobes bilaterally and more consolidated patches in the left lower lobe with a relative sparing of the right lower lobe. This may represent two processes. She is risk for inhalation, injury explaining the bilateral upper lobe ground-glass opacities I think late earlier this year and then using E-cigarettes as recently as a couple weeks ago. She also has a history of having ground-glass opacity in the left upper lobe 5 years ago of unknown etiology. That was at the same time that she was diagnosed with probable/possible myocarditis/pericarditis. The lower lobe process that is greater on the left may be more of an acute process. She did have a moderately elevated procalcitonin. It is also possible that all of the findings are connected. 2. History of recent cigarette, E-cigarette, and vaping. 3. I suspect that there is an underlying inflammatory process as the cause of most of her changes, possibly connective tissue disorder. She gives no history suggestive of hypersensitivity, pneumonitis that I could elicit. RECOMMENDATIONS: 1. Ms. Colón appears to have some clinical improvement whether that is from the antibiotics of the lower lobe process is affective versus secondary to the systemic corticosteroids. 2. Will increase her steroids to 125 mg IV every 6 hours. I am reluctant to go higher at this time empirically particularly given the moderately elevated procalcitonin. 3. Agree with continuation of antibiotics. 4. Await the remainder of the connective tissue cascade. Her RV is negative. 5. I discussed with Ms. Colón that she may eventually require a biopsy. Given the differential, I suspect that if she needs a biopsy she may be better served by an open lung biopsy. 6. I also encouraged her to ambulate. We already discussed with her that part of how we tell she is improving would be the depths to which she would desaturate with ambulation.
[2019-01-15] MEDS ORDERED: FUROSEMIDE 20 MG/2 ML VIAL (J1940) IV ONE (12:45)
[2019-01-15] MEDS ORDERED: methylPREDNISolone INJ 125 MG/2 ML VIAL (J2930) IV SCH (13:00)
[2019-01-15 16:30] VITALS: BP 121/74
[2019-01-15] MEDS: PANTOPRAZOLE 40MG TAB (PROTONIX) PO SCH (21:56)
[2019-01-15] MEDS: PRAVASTATIN 20 MG TAB PO SCH (21:58)
[2019-01-15] MEDS: rOPINIRole 1MG TAB PO SCH (21:58)
[2019-01-15 22:00] VITALS: BP 158/73
[2019-01-16] MEDS: methylPREDNISolone INJ 125 MG/2 ML VIAL (J2930) IV SCH ×4 (00:07→19:47)
[2019-01-16] MEDS: IPRATROPIUM 0.5MG/ALBUTEROL 2.5MG INH SOL UD 3ML (DUONEB)(J7620) NEB SCH ×6 (02:54→23:38)
[2019-01-16] MEDS: PIPERACILLIN/TAZOBACTAM SOD 3.375 GM in D5W MINI-BAG PLUS 50 ML IV SCH ×4 (03:35→20:37)
[2019-01-16 05:54] LABS: BASO % 0.2 % (0.0-1.0); EOS % 0.1 % (0.0-3.0); HEMOGLOBIN 9.8 g/dl (12.0-15.5); LYMPH # 0.9 10^3/uL (1.5-5.0); LYMPH % 7.5 % (24.0-44.0); MEAN CORPUSCULAR HEMOGLOBIN 27.4 pg (27.0-33.0); MEAN CORPUSCULAR HGB CONC 32.7 g/dl (32.0-36.5); MEAN CORPUSCULAR VOLUME 83.8 fl (80.0-96.0); MONO # 0.4 10^3/uL (0.0-0.8); MONO % 3.4 % (0.0-5.0); NEUTROPHILS # 10.6 10^3/uL (1.5-8.5); NEUTROPHILS % 84.6 % (36.0-66.0); PLATELET COUNT, AUTOMATED 283 10^3/uL (150-450); RED BLOOD COUNT 3.58 10^6/uL (4.00-5.40); WHITE BLOOD COUNT 12.6 10^3/uL (4.0-10.0)
[2019-01-16 06:00] VITALS: BP 137/75
[2019-01-16 06:25] LABS: BLOOD UREA NITROGEN 11 MG/DL (7-18); CALCIUM LEVEL 8.7 MG/DL (8.5-10.1); CARBON DIOXIDE LEVEL 26 MEQ/L (21-32); CHLORIDE LEVEL 104 MEQ/L (98-107); CREATININE FOR GFR 0.73 MG/DL (0.55-1.30); GLOMERULAR FILTRATION RATE > 60.0 (>51); GLUCOSE, FASTING 182 MG/DL (70-100); POTASSIUM SERUM 3.1 MEQ/L (3.5-5.1); SODIUM LEVEL 139 MEQ/L (136-145)
[2019-01-16] MEDS ORDERED: POTASSIUM CHLORIDE 10 MEQ SR TABLET PO ONE (07:00)
[2019-01-16] MEDS ORDERED: SIMETHICONE 80 MG CHEW TAB PO PRN (07:45)
[2019-01-16] MEDS: DEXTROMETHORPHAN 60MG/10ML SUSP 90ML BTL(DELSYM) PO SCH ×2 (09:00→20:35)
--- NOTE | 2019-01-16 09:33 | REP ---
PA and lateral chest: Comparison is the portable chest of 01/13/2019. There is a large infiltrate throughout the entire right lung. There is a focal infiltrate inferiorly in the left lung. There are no pleural effusions. Cardiac size is normal. The margaret, mediastinum, skeletal structures are unremarkable. Electronic power pack is again superimposed over the left apex with leads extending into the neck. Impression: Bilateral infiltrates as described. No pleural effusions. Electronically Signed by Krish Lucia MD 01/16/2019 09:26 A
[2019-01-16] MEDS: OXcarbazepine 150 MG TAB PO SCH ×2 (09:49→20:35)
[2019-01-16] MEDS: FLUoxetine 20 MG CAP PO SCH ×2 (09:49→20:36)
[2019-01-16] MEDS: GABAPENTIN 400 MG CAP PO SCH ×3 (09:49→20:35)
[2019-01-16] MEDS: MORPHINE 15 MG SA TAB PO SCH ×2 (09:50→20:37)
[2019-01-16] MEDS: ENOXAPARIN 40 MG/0.4 ML SYRINGE (J1650) SC SCH (09:51)
--- NOTE | 2019-01-16 10:12 | IPN ---
DATE OF VISIT: 01/16/2019 I attended [facility]. T-max 96.9, blood pressure 130's, heart rate 80's, respiratory rate in the teens without any accessory muscle use. She remains on 2 liters nasal cannula. She said she is breathing a little easier this morning, but thinks her cough is worse. She still has some chest discomfort with her cough. Chest x-ray done this morning has much better inspiration compared to her portable film from several days ago. Clearly better aerated. White blood cell count 12.6, hemoglobin 9.8 and platelet count 283,000 with 84% segs, 0 bands. Sodium 139, potassium 3.1, chloride 104, CO2 26, BUN 11, creatinine 0.73. Cultures do show some yeast in her sputum. No other predominant organisms. AFB negative. On exam, she is awake, alert and appropriate. Pupils react. Sclerae clear. Trachea is in the midline. Chest shows diminished, but symmetric expansion. There are some crackles that improve with deep inspiration, but no other focal adventitious breath sounds are identified. Cardiac exam regular with no murmur or gallop. Peripheral pulses palpable. No edema. Abdomen soft, nontender, with active bowel sounds. No convincing organomegaly or masses. Extremities: Without cyanosis or clubbing. Neurologically, she is awake, alert and appropriate. Psychiatric: Normal mood and affect. Chest x-ray as outlined above. IMPRESSION: 1. Pneumonitis. 2. Hypoxemic respiratory failure. 3. Previous tobacco abuse. RECOMMENDATIONS: At this point, will continue her current IV steroids. Will add fluconazole in view of the yeast in her sputum. Will add some cough suppression. She is already on nebulized bronchodilators and will add EZ-Pap to these. I encouraged ambulation. Will continue her oxygen as is. We await further culture results. Will continue to follow her chest x-rays. He oxygenation status is reasonable for now. She is having some GI issues and I will defer these to the primary service. Ulcer and deep vein thrombosis (DVT) prophylaxis are in place. Further recommendations will be made in the progress record as new information becomes available.
[2019-01-16] MEDS: BENZONATATE 100 MG CAP PO SCH ×3 (11:00→20:36)
[2019-01-16] MEDS: VORICONAZOLE 200MG TABLET (VFEND) PO SCH ×2 (11:00→20:36)
[2019-01-16 14:00] VITALS: BP 157/83
--- NOTE | 2019-01-16 14:48 | IPNPDOC ---
Subjective Date Seen The patient was seen on 01/16/19. Subjective Chief Complaint/HPI Patient says breathing is a little better, Needing less oxygen than before. No conversational dyspnea noted. Complains of watery diarrhea since yesterday along with some abdominal soreness. No nausea or vomiting, no abdominal distension. Had 8 bowel movements yesterday and about 6 from early this morning. It is liquid brown stool small amounts each time every time she has a bout of coughing. No appetite yet. No fever or chills. Objective Physical Examination General Exam: Positive: Alert, Cooperative, No Acute Distress Eye Exam: Positive: PERRLA, Conjunctiva & lids normal, EOMI; Negative: Sclera icteric ENT Exam: Positive: Atraumatic, Mucous membr. moist/pink, Pharynx Normal Neck Exam: Positive: Supple; Negative: JVD, thyromegaly Chest Exam: Positive: Rales (diffuse cracles bilaterally on the upper part of the lungs. ), Diminished, Other (crackles at both the upper zones of the lungs at the back. 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 It was accompanied with some nasal congestion and runny nose and some phlegm production no hemoptysis. Her SOB has been so bad that she has been unable to ambulate from bed to bathroom. She also had 2 episodes of fever at home in the past 2 weeks. Over the summer she did have 3 attacks of SOB which lasted about 2 to 3 days each time then got better spontaneously. On arrival to the ED her Spo2 was 70% in room air, she was severely tachypneic with elevated WBC and elevated lactate. Her blood pressure down trended in the ed to 90s/50s so was started on fluid loading for possible sepsis. She had a CT angio of the chest done. Which is negative for pulmonary embolism but showed diffuse pulmonary infiltrates. The bilateral infiltrates, more prominent on superior lung vu. She was admitted for Acute hypoxic respiratory failure and possible pneumonia and sepsis. Watery diarrhea will send c diff pcr could be related to antibiotics. if negative will give imodium. Acute respiratory failure with hypoxia with Pneumonitis Etiology yet undetermined. Beta 1,3 D glucan and urine legionella pending. RA negative. pulmonary consulted appreciate input. Differentials are cryptogenic organizing pneumonia due to vape use/ less likely histo, blasto coccidiomycosis infection Bacterial infection is less likely but will empirically cover with antibiotics Zosyn and started on voriconazole cough suppressants. Echo : diastolic dysfunction grade 2 , moderate pulmonary hypertension 40 to 50 with possibly increased central venous pressure. EF normal. Smoking almost 40 pack year smoker had switched to e cigarettes 2 years ago. quit about 1-2 months ago when she could not inhale the vapor any more Cannot rule out Sepsis from pneumonia though less likely Sputum positive for yeast. started on Voriconazole. was hypotensive in ED improved with IVF. continue zosyn Hyponatremia and hyperkalemia with hypotension improved Occipital neuralgia s/p trigeminal nerve release and formation of scar neuroma which was also excised now has a dorsal column stimulator at the back of neck will hald the dose of MS Contin and continue with oxycodone with less frequency. Did discuss th side effects of of high doses of narcotics on breathing. Restless leg syndrome continue home med Low TSH will check free t4 and ft3 may be sick euthyroid syndrome will not start on medication right now. follow up as outpatient. Plan/VTE VTE Prophylaxis Ordered?: Yes VS, I&O, 24H, Fishbone Vital Signs/I&O Vital Signs Date Time Temp Pulse Resp B/P (MAP) Pulse Ox O2 Delivery O2 Flow Rate FiO2 01/16/19 14:00 98.4 77 22 157/83 (107) 96 2.0 01/13/19 18:30 Nasal Cannula 01/13/19 12:21 98 I&O- Last 24 Hours up to 6 AM 01/16/19 06:00 Intake Total 1600 ml Output Total 1900 ml Balance -300 ml Laboratory Data 24H LABS Laboratory Tests 2 01/16/19 05:30: Immature Granulocyte % (Auto) 4.2H, White Blood Count 12.6H, Red Blood Count 3.58L, Hemoglobin 9.8L, Hematocrit 30.0L, Mean Corpuscular Volume 83.8, Mean Corpuscular Hemoglobin 27.4, Mean Corpuscular Hemoglobin Concent 32.7, Red Cell Distribution Width 15.5H, Platelet Count 283, Neutrophils (%) (Auto) 84.6H, Lymphocytes (%) (Auto) 7.5L, Monocytes (%) (Auto) 3.4, Eosinophils (%) (Auto) 0.1, Basophils (%) (Auto) 0.2, Neutrophils # (Auto) 10.6H, Lymphocytes # (Auto) 0.9L, Monocytes # (Auto) 0.4, Eosinophils # (Auto) 0.0, Basophils # (Auto) 0.0, Nucleated Red Blood Cells % (auto) 0.2H, Anion Gap 9, Glomerular Filtration Rate > 60.0, Blood Urea Nitrogen 11, Creatinine 0.73#, Sodium Level 139, Potassium Level 3.1L, Chloride Level 104, Carbon Dioxide Level 26, Calcium Level 8.7 01/16/19 08:00: CBC/BMP Laboratory Tests 01/16/19 05:30 Red Blood Count 3.58 L, Mean Corpuscular Volume 83.8, Mean Corpuscular Hemoglobin 27.4, Mean Corpuscular Hemoglobin Concent 32.7, Red Cell Distribution Width 15.5 H, Neutrophils (%) (Auto) 84.6 H, Lymphocytes (%) (Auto) 7.5 L, Monocytes (%) (Auto) 3.4, Eosinophils (%) (Auto) 0.1, Basophils (%) (Auto) 0.2, Neutrophils # (Auto) 10.6 H, Lymphocytes # (Auto) 0.9 L, Monocytes # (Auto) 0.4, Eosinophils # (Auto) 0.0, Basophils # (Auto) 0.0, Calcium Level 8.7 Microbiology Microbiology 01/14/19 Acid Fast Stain - Final, Resulted 01/14/19 Mycobacterial Culture, Resulted Pending 01/14/19 Gram Stain - Final, Complete 01/14/19 Sputum Culture - Final, Complete Yeast Like Organism 01/13/19 Respiratory Virus Panel (PCR) ([facility]) - Final, Complete 01/13/19 Blood Culture - Preliminary, Resulted No Growth after 72 hours. All specime... 01/13/19 Blood Culture - Preliminary, Resulted No Growth after 72 hours. All specime... MARY HEADLEY MD Jan 16, 2019 14:48
[2019-01-16 20:16] LABS: CLOSTRIDIUM DIFFICILE PCR NEGATIVE (NEGATIVE)
[2019-01-16] MEDS: rOPINIRole 1MG TAB PO SCH (20:36)
[2019-01-16] MEDS: PANTOPRAZOLE 40MG TAB (PROTONIX) PO SCH (20:36)
[2019-01-16] MEDS: PRAVASTATIN 20 MG TAB PO SCH (20:36)
[2019-01-16 22:00] VITALS: BP 140/83
[2019-01-17 00:13] LABS: ANA (HEP2) Negative (.); ANCA-ATYPICAL <1:20 titer (Neg:<1:20); CYTOPLASMIC NEUTROP AB ANCA-C <1:20 titer (Neg:<1:20); PERINUCLEAR AB ANCA-P <1:20 titer (Neg:<1:20)
[2019-01-17] MEDS: methylPREDNISolone INJ 125 MG/2 ML VIAL (J2930) IV SCH ×4 (01:35→18:30)
[2019-01-17] MEDS: IPRATROPIUM 0.5MG/ALBUTEROL 2.5MG INH SOL UD 3ML (DUONEB)(J7620) NEB SCH ×6 (03:21→22:55)
[2019-01-17] MEDS: oxyCODONE 5MG TAB PO PRN (03:25)
[2019-01-17] MEDS: PIPERACILLIN/TAZOBACTAM SOD 3.375 GM in D5W MINI-BAG PLUS 50 ML IV SCH ×4 (03:26→21:50)
[2019-01-17 06:00] VITALS: BP 136/81
[2019-01-17 06:23] LABS: BASO % 0.4 % (0.0-1.0); HEMATOCRIT 32.8 % (36.0-47.0); HEMOGLOBIN 10.8 g/dl (12.0-15.5); LYMPH # 1.2 10^3/uL (1.5-5.0); LYMPH % 10.1 % (24.0-44.0); MEAN CORPUSCULAR HEMOGLOBIN 27.2 pg (27.0-33.0); MEAN CORPUSCULAR HGB CONC 32.9 g/dl (32.0-36.5); MEAN CORPUSCULAR VOLUME 82.6 fl (80.0-96.0); MONO # 0.5 10^3/uL (0.0-0.8); MONO % 4.4 % (0.0-5.0); NEUTROPHILS # 9.2 10^3/uL (1.5-8.5); NEUTROPHILS % 80.8 % (36.0-66.0); PLATELET COUNT, AUTOMATED 313 10^3/uL (150-450); RED BLOOD COUNT 3.97 10^6/uL (4.00-5.40); WHITE BLOOD COUNT 11.4 10^3/uL (4.0-10.0)
[2019-01-17 06:48] LABS: BLOOD UREA NITROGEN 9 MG/DL (7-18); CALCIUM LEVEL 8.8 MG/DL (8.5-10.1); CARBON DIOXIDE LEVEL 29 MEQ/L (21-32); CHLORIDE LEVEL 102 MEQ/L (98-107); CREATININE FOR GFR 0.64 MG/DL (0.55-1.30); GLOMERULAR FILTRATION RATE > 60.0 (>51); GLUCOSE, FASTING 131 MG/DL (70-100); POTASSIUM SERUM 3.5 MEQ/L (3.5-5.1); SODIUM LEVEL 137 MEQ/L (136-145)
[2019-01-17] MEDS: GABAPENTIN 400 MG CAP PO SCH ×3 (08:24→21:50)
[2019-01-17] MEDS: MORPHINE 15 MG SA TAB PO SCH ×2 (08:24→21:51)
[2019-01-17] MEDS: OXcarbazepine 150 MG TAB PO SCH ×2 (08:25→21:50)
[2019-01-17] MEDS: DEXTROMETHORPHAN 60MG/10ML SUSP 90ML BTL(DELSYM) PO SCH ×2 (08:25→21:49)
[2019-01-17] MEDS: ENOXAPARIN 40 MG/0.4 ML SYRINGE (J1650) SC SCH (08:25)
[2019-01-17] MEDS: FLUoxetine 20 MG CAP PO SCH ×2 (08:25→21:50)
[2019-01-17] MEDS: VORICONAZOLE 200MG TABLET (VFEND) PO SCH ×2 (08:25→21:50)
[2019-01-17] MEDS: BENZONATATE 100 MG CAP PO SCH ×3 (08:25→21:51)
--- NOTE | 2019-01-17 09:42 | IPNPDOC ---
Subjective Date Seen The patient was seen on 01/17/19. Subjective Chief Complaint/HPI feeling a little better today. Says getting less SOB on ambulating to the bathroom , good oxygenation with 2 liters of oxygen. No fever or chills, continues to have bouts of dry cough. Continues to have brown liquid stool which she says is very unusual as normal she has a bowel movement every 3 to 4 days. Objective Physical Examination General Exam: Positive: Alert, Cooperative, No Acute Distress Eye Exam: Positive: PERRLA, Conjunctiva & lids normal, EOMI; Negative: Sclera icteric ENT Exam: Positive: Atraumatic, Mucous membr. moist/pink, Pharynx Normal Neck Exam: Positive: Supple; Negative: JVD, thyromegaly Chest Exam: Positive: Rales (diffuse cracles bilaterally on the upper part of the lungs. ), Diminished, Other (crackles at both the upper zones of the lungs at the back. 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 It was accompanied with some nasal congestion and runny nose and some phlegm production no hemoptysis. Her SOB has been so bad that she has been unable to ambulate from bed to bathroom. She also had 2 episodes of fever at home in the past 2 weeks. Over the summer she did have 3 attacks of SOB which lasted about 2 to 3 days each time then got better spontaneously. On arrival to the ED her Spo2 was 70% in room air, she was severely tachypneic with elevated WBC and elevated lactate. Her blood pressure down trended in the ed to 90s/50s so was started on fluid loading for possible sepsis. She had a CT angio of the chest done. Which is negative for pulmonary embolism but showed diffuse pulmonary infiltrates. The bilateral infiltrates, more prominent on superior lung vu. She was admitted for Acute hypoxic respiratory failure and possible pneumonia and sepsis. Watery diarrhea c diff negative. could be related to antibiotics. if negative will give imodium. Acute respiratory failure with hypoxia with Pneumonitis Etiology yet undetermined. Beta 1,3 D glucan and urine legionella pending. RA negative. pulmonary consulted appreciate input. Differentials are cryptogenic organizing pneumonia due to vape use/ less likely histo, blasto coccidiomycosis infection Bacterial infection is less likely but will empirically cover with antibiotics Zosyn and started on voriconazole cough suppressants. Echo : diastolic dysfunction grade 2 , moderate pulmonary hypertension 40 to 50 with possibly increased central venous pressure. EF normal. Smoking almost 40 pack year smoker had switched to e cigarettes 2 years ago. quit about 1-2 months ago when she could not inhale the vapor any more Cannot rule out Sepsis from pneumonia though less likely Sputum positive for yeast. started on Voriconazole. was hypotensive in ED improved with IVF. continue zosyn Hyponatremia and hyperkalemia with hypotension improved Occipital neuralgia s/p trigeminal nerve release and formation of scar neuroma which was also excised now has a dorsal column stimulator at the back of neck will hald the dose of MS Contin and continue with oxycodone with less frequency. Did discuss th side effects of of high doses of narcotics on breathing. Restless leg syndrome continue home med Low TSH will check free t4 and ft3 may be sick euthyroid syndrome will not start on medication right now. follow up as outpatient. Plan/VTE VTE Prophylaxis Ordered?: Yes VS, I&O, 24H, Fishbone Vital Signs/I&O Vital Signs Date Time Temp Pulse Resp B/P (MAP) Pulse Ox O2 Delivery O2 Flow Rate FiO2 01/17/19 08:37 2.0 01/17/19 08:24 16 01/17/19 06:00 98.7 89 136/81 (99) 91 01/13/19 18:30 Nasal Cannula 01/13/19 12:21 98 I&O- Last 24 Hours up to 6 AM 01/17/19 05:59 Intake Total 1790 ml Output Total 2400 ml Balance -610 ml Laboratory Data 24H LABS Laboratory Tests 2 01/16/19 18:38: Clostridium difficile [id number] PRESUMPTIVE NEGATIVE, Clostridium difficile Toxin (PCR) NEGATIVE 01/17/19 05:57: Immature Granulocyte % (Auto) 4.3H, White Blood Count 11.4H, Red Blood Count 3.97L, Hemoglobin 10.8L, Hematocrit 32.8L, Mean Corpuscular Volume 82.6, Mean Corpuscular Hemoglobin 27.2, Mean Corpuscular Hemoglobin Concent 32.9, Red Cell Distribution Width 15.3H, Platelet Count 313, Neutrophils (%) (Auto) 80.8H, Lymphocytes (%) (Auto) 10.1L, Monocytes (%) (Auto) 4.4, Eosinophils (%) (Auto) 0.0, Basophils (%) (Auto) 0.4, Neutrophils # (Auto) 9.2H, Lymphocytes # (Auto) 1.2L, Monocytes # (Auto) 0.5, Eosinophils # (Auto) 0.0, Basophils # (Auto) 0.0, Nucleated Red Blood Cells % (auto) 0.0, Anion Gap 6L, Glomerular Filtration Rate > 60.0, Blood Urea Nitrogen 9, Creatinine 0.64, Sodium Level 137, Potassium Level 3.5, Chloride Level 102, Carbon Dioxide Level 29, Calcium Level 8.8 CBC/BMP Laboratory Tests 01/17/19 05:57 Red Blood Count 3.97 L, Mean Corpuscular Volume 82.6, Mean Corpuscular Hemoglobin 27.2, Mean Corpuscular Hemoglobin Concent 32.9, Red Cell Distribution Width 15.3 H, Neutrophils (%) (Auto) 80.8 H, Lymphocytes (%) (Auto) 10.1 L, Monocytes (%) (Auto) 4.4, Eosinophils (%) (Auto) 0.0, Basophils (%) (Auto) 0.4, Neutrophils # (Auto) 9.2 H, Lymphocytes # (Auto) 1.2 L, Monocytes # (Auto) 0.5, Eosinophils # (Auto) 0.0, Basophils # (Auto) 0.0, Calcium Level 8.8 Microbiology Microbiology 01/14/19 Acid Fast Stain - Final, Resulted 01/14/19 Mycobacterial Culture, Resulted Pending 01/14/19 Gram Stain - Final, Complete 01/14/19 Sputum Culture - Final, Complete Yeast Like Organism 01/13/19 Respiratory Virus Panel (PCR) ([facility]) - Final, Complete 01/13/19 Blood Culture - Preliminary, Resulted No Growth after 72 hours. All specime... 01/13/19 Blood Culture - Preliminary, Resulted No Growth after 72 hours. All specime... MARY HEADLEY MD Jan 17, 2019 09:42
--- NOTE | 2019-01-17 10:46 | IPN ---
DATE OF SERVICE: 01/17/2019 I again attended Viridiana Colón on the medical-surgical floor. She says she is feeling a little bit better today. Maximum temperature (Tmax) 98.7, blood pressure in the 130s, heart rate generally in the 80s with a sinus mechanism, respiratory rate 16-18 without accessory muscle use. Intake and output (I and O) 1550/2000 in the last 24 hours. White blood cell count 11.4, hemoglobin 10.8, platelet count 313,000, 80.8% segmented neutrophils, no bands. Sodium 137, potassium of 3.5, chloride 102, CO2 29, BUN 8, creatinine 0.64. No other new microbiology data available. Acid-fast bacillus (AFB) pending but are negative to date. On examination, she is awake, alert, appropriate, and comfortable. Less cough today. HEENT: Is otherwise normocephalic, atraumatic. Pupils react. Neck is supple. Nasal cannula oxygen in place. Trachea is in the midline. Chest: Diminished but symmetric expansion. There might be some faint crackles that improve with deep inspiration, but no other focal adventitious breath sounds are identified. Cardiac examination is regular with no gallop. Peripheral pulses palpable. No edema. Abdomen soft, nontender, with active bowel sounds. No convincing organomegaly or masses. Extremities: Without cyanosis or clubbing. Neurologically, she is awake, alert, and appropriate. Psychiatric: Normal mood and affect. Pulse oximetry 91% to 94% on 2 liters. IMPRESSION: 1. Pneumonitis. Etiology unclear. 2. Hypoxemic respiratory failure. 3. History of recent cigarette, e-cigarette, and vaping. RECOMMENDATIONS: At this point, she has shown some clinical improvement with the addition of antibiotics and IV steroids. Cough suppressant and nebulized bronchodilators via EzPAP. We will continue this for at least another 24 hours before we begin to decrease her level of steroids. I have encouraged ambulation. Will continue as outlined above. We await final culture results. She is also on antifungals and final ID on that is pending. Further recommendations will be made in the progress record as new information becomes available. WALLACE
[2019-01-17] MEDS: LOPERAMIDE 2 MG CAP PO SCH ×2 (12:21→21:51)
[2019-01-17 14:00] VITALS: BP 122/62
[2019-01-17 20:00] VITALS: BP 151/72
[2019-01-17] MEDS: PRAVASTATIN 20 MG TAB PO SCH (21:50)
[2019-01-17] MEDS: rOPINIRole 1MG TAB PO SCH (21:51)
[2019-01-17] MEDS: PANTOPRAZOLE 40MG TAB (PROTONIX) PO SCH (21:51)
[2019-01-18] MEDS: methylPREDNISolone INJ 125 MG/2 ML VIAL (J2930) IV SCH ×4 (01:10→21:06)
[2019-01-18] MEDS: PIPERACILLIN/TAZOBACTAM SOD 3.375 GM in D5W MINI-BAG PLUS 50 ML IV SCH ×4 (02:43→21:08)
[2019-01-18] MEDS: IPRATROPIUM 0.5MG/ALBUTEROL 2.5MG INH SOL UD 3ML (DUONEB)(J7620) NEB SCH ×6 (03:48→23:19)
[2019-01-18 06:00] VITALS: BP 160/77
[2019-01-18 06:23] LABS: HEMATOCRIT 34.5 % (36.0-47.0); HEMOGLOBIN 11.4 g/dl (12.0-15.5); MEAN CORPUSCULAR HEMOGLOBIN 27.1 pg (27.0-33.0); MEAN CORPUSCULAR VOLUME 82.1 fl (80.0-96.0); PLATELET COUNT, AUTOMATED 339 10^3/uL (150-450); WHITE BLOOD COUNT 12.5 10^3/uL (4.0-10.0)
[2019-01-18] MEDS: oxyCODONE 5MG TAB PO PRN (06:34)
[2019-01-18 06:57] LABS: BLOOD UREA NITROGEN 12 MG/DL (7-18); CALCIUM LEVEL 8.8 MG/DL (8.5-10.1); CARBON DIOXIDE LEVEL 29 MEQ/L (21-32); CHLORIDE LEVEL 100 MEQ/L (98-107); CREATININE FOR GFR 0.65 MG/DL (0.55-1.30); GLOMERULAR FILTRATION RATE > 60.0 (>51); GLUCOSE, FASTING 154 MG/DL (70-100); POTASSIUM SERUM 3.1 MEQ/L (3.5-5.1); SODIUM LEVEL 137 MEQ/L (136-145)
[2019-01-18 07:09] LABS: LYMPHOCYTES 8 % (16-44); MONOCYTES 4 % (0-5); MYELOCYTES 2 % (0-0); NEUTROPHILS 86 % (28-66)
[2019-01-18 07:13] LABS: PLATELET ESTIMATE NORMAL (NORMAL)
[2019-01-18 07:14] LABS: ANISOCYTOSIS 1+
[2019-01-18] MEDS: FLUoxetine 20 MG CAP PO SCH ×2 (09:17→21:07)
[2019-01-18] MEDS: LOPERAMIDE 2 MG CAP PO SCH ×2 (09:17→21:07)
[2019-01-18] MEDS: VORICONAZOLE 200MG TABLET (VFEND) PO SCH ×2 (09:17→21:24)
[2019-01-18] MEDS: GABAPENTIN 400 MG CAP PO SCH ×3 (09:18→21:07)
[2019-01-18] MEDS: BENZONATATE 100 MG CAP PO SCH ×3 (09:18→21:06)
[2019-01-18] MEDS: MORPHINE 15 MG SA TAB PO SCH ×2 (09:18→21:07)
[2019-01-18] MEDS: DEXTROMETHORPHAN 60MG/10ML SUSP 90ML BTL(DELSYM) PO SCH ×2 (09:19→21:06)
[2019-01-18] MEDS: POTASSIUM CHLORIDE 10 MEQ SR TABLET PO SCH (09:19)
[2019-01-18] MEDS: OXcarbazepine 150 MG TAB PO SCH ×2 (09:19→21:06)
[2019-01-18] MEDS: ENOXAPARIN 40 MG/0.4 ML SYRINGE (J1650) SC SCH (09:19)
--- NOTE | 2019-01-18 09:45 | IPN ---
DATE: 01/18/2019 I again attended [facility]. She is feeling a little bit better this morning. Much less cough. T-max 98.2, blood pressure in the 160s, heart rate in the 70s, respiratory rate 15-18 and unlabored. Currently pulse oximetry 92% on 1 liter nasal cannula. Intake and output midnight to midnight 860 in with 1450 out. No new chest x-ray. LABORATORIES: Show a white blood cell count 12.5, hemoglobin 11.4, platelet count 339,000, 80% segs, no bands. Sodium 137, potassium of 3.1, chloride 100, CO2 29, BUN 12, creatinine 0.65. On exam, she is awake, alert, and appropriate. Pupils react. Sclera clear. Trachea is in the midline. Lungs are fairly clear to auscultation and percussion, symmetric expansion. No significant focal adventitious breath sounds are identified. Tactile fremitus palpable throughout. Heart examination regular with no murmur or gallop. Peripheral pulses palpable. No edema. Abdomen soft, nontender, with active bowel sounds. No convincing organomegaly or masses. Extremities without cyanosis or clubbing. Neurologically, she is awake, alert, and appropriate. Psychiatric normal mood and affect. IMPRESSION: 1. Hypoxemia, still oxygen requiring. 2. Abnormal x-ray, pneumonitis, etiology unclear. 3. History of inhalational use. RECOMMENDATIONS: At this point, we will start cutting her steroids and hopefully in the 48 hours can get her to oral form. Will recheck a chest x-ray tomorrow. I would increase her time out of bed and increase her ambulation. Hopefully, we can wean her oxygen to room air. She states she will remain tobacco free and hopefully will not use any further inhalational products. For now, we will continue her cough suppression. Likely switch her antimicrobials to orals in the next 24-48 hours as well. Further recommendations will be made in the progress record as new information becomes available.
--- NOTE | 2019-01-18 10:21 | REP ---
REASON FOR EXAM: Followup. Prior 01/17/20129 was reviewed. That examination showed bilateral patchy lung field opacities. Today's examination shows significant improvement in the bilateral patchy lung field opacities. The cardiomediastinal silhouette is unchanged. There is mild cardiomegaly status quo. There is no change in the appearance of the osseous structures. IMPRESSION: Lung field improvement as described above. Electronically Signed by Gene Hamm DO 01/18/2019 10:57 A
[2019-01-18 14:00] VITALS: BP 163/67
[2019-01-18] MEDS: rOPINIRole 1MG TAB PO SCH (21:06)
[2019-01-18] MEDS: PANTOPRAZOLE 40MG TAB (PROTONIX) PO SCH (21:06)
[2019-01-18] MEDS: PRAVASTATIN 20 MG TAB PO SCH (21:07)
[2019-01-18 22:00] VITALS: BP 158/74
--- NOTE | 2019-01-18 22:28 | IPNPDOC ---
Subjective Date Seen The patient was seen on 01/18/19. Subjective Chief Complaint/HPI Feels better, much less exertional dyspnea. No fever or chills, no chest pain. Still have cough. Objective Physical Examination General Exam: Positive: Alert, Cooperative, No Acute Distress Eye Exam: Positive: PERRLA, Conjunctiva & lids normal, EOMI; Negative: Sclera icteric ENT Exam: Positive: Atraumatic, Mucous membr. moist/pink, Pharynx Normal Neck Exam: Positive: Supple; Negative: JVD, thyromegaly Chest Exam: Positive: Rales (diffuse cracles bilaterally on the upper part of the lungs. ), Diminished, Other (crackles at both the upper zones of the lungs at the back. 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 It was accompanied with some nasal congestion and runny nose and some phlegm production no hemoptysis. Her SOB has been so bad that she has been unable to ambulate from bed to bathroom. She also had 2 episodes of fever at home in the past 2 weeks. Over the summer she did have 3 attacks of SOB which lasted about 2 to 3 days each time then got better spontaneously. On arrival to the ED her Spo2 was 70% in room air, she was severely tachypneic with elevated WBC and elevated lactate. Her blood pressure down trended in the ed to 90s/50s so was started on fluid loading for possible sepsis. She had a CT angio of the chest done. Which is negative for pulmonary embolism but showed diffuse pulmonary infiltrates. The bilateral infiltrates, more prominent on superior lung vu. She was admitted for Acute hypoxic respiratory failure and possible pneumonia and sepsis. Watery diarrhea resolved c diff negative. related to antibiotics. responded to imodium Acute respiratory failure with hypoxia with Pneumonitis Etiology yet undetermined. Beta 1,3 D glucan pending. RA negative. HERLINDA negation, legionella negative. pulmonary consulted appreciate input. Differentials are cryptogenic organizing pneumonia due to vape use/ less likely histo, blasto coccidiomycosis infection Bacterial infection is less likely but will empirically cover with antibiotics Zosyn and started on voriconazole cough suppressants. steroids. seems dre responding to steroids. Have started weaning of steroids. Hopefully will be able to convert to oral steroids in 2 to 3 days. Echo : diastolic dysfunction grade 2 , moderate pulmonary hypertension 40 to 50 with possibly increased central venous pressure. EF normal. Smoking almost 40 pack year smoker had switched to e cigarettes 2 years ago. quit about 1-2 months ago when she could not inhale the vapor any more patient states she will not use any more tobacco products or any other inhalational substances. Cannot rule out Sepsis from pneumonia though less likely Sputum positive for yeast. started on Voriconazole. was hypotensive in ED improved with IVF. continue zosyn. will change to oral antibiotics in 1 to 2 days. Hyponatremia and hyperkalemia with hypotension improved Occipital neuralgia s/p trigeminal nerve release and formation of scar neuroma which was also excised now has a dorsal column stimulator at the back of neck will hald the dose of MS Contin and continue with oxycodone with less frequency. Did discuss th side effects of of high doses of narcotics on breathing. Restless leg syndrome continue home med Low TSH will check free t4 and ft3 may be sick euthyroid syndrome will not start on medication right now. follow up as outpatient. Full code Plan/VTE VTE Prophylaxis Ordered?: Yes VS, I&O, 24H, Fishbone Vital Signs/I&O Vital Signs Date Time Temp Pulse Resp B/P (MAP) Pulse Ox O2 Delivery O2 Flow Rate FiO2 01/18/19 21:07 16 01/18/19 14:00 97.7 71 163/67 (99) 93 0.5 01/13/19 18:30 Nasal Cannula 01/13/19 12:21 98 I&O- Last 24 Hours up to 6 AM 01/18/19 06:00 Intake Total 740 ml Output Total 1600 ml Balance -860 ml Laboratory Data 24H LABS Laboratory Tests 2 01/18/19 05:38: Immature Granulocyte % (Auto) , Nucleated Red Blood Cells % (auto) 0.2H, Neutrophils 86H, Lymphocytes (Manual) 8L, Monocytes (Manual) 4, Myelocytes 2H, Platelet Estimate NORMAL, Anisocytosis 1+, Anion Gap 8, Glomerular Filtration Rate > 60.0, Blood Urea Nitrogen 12, Creatinine 0.65, Sodium Level 137, P otassium Level 3.1L, Chloride Level 100, Carbon Dioxide Level 29, Calcium Level 8.8 CBC/BMP Laboratory Tests 01/18/19 05:38 Red Blood Count 4.20, Mean Corpuscular Volume 82.1, Mean Corpuscular Hemoglobin 27.1, Mean Corpuscular Hemoglobin Concent 33.0, Red Cell Distribution Width 15.1 H, Calcium Level 8.8 Microbiology Microbiology 01/14/19 Acid Fast Stain - Final, Resulted 01/14/19 Mycobacterial Culture, Resulted Pending 01/14/19 Gram Stain - Final, Complete 01/14/19 Sputum Culture - Final, Complete Yeast Like Organism 01/13/19 Respiratory Virus Panel (PCR) (JAEL) - Final, Complete 01/13/19 Blood Culture - Final, Complete NO GROWTH AFTER 5 DAYS 01/13/19 Blood Culture - Final, Complete NO GROWTH AFTER 5 DAYS MARY HEADLEY MD Jan 18, 2019 22:28
[2019-01-19] MEDS: methylPREDNISolone INJ 125 MG/2 ML VIAL (J2930) IV SCH ×4 (01:35→18:28)
[2019-01-19] MEDS: IPRATROPIUM 0.5MG/ALBUTEROL 2.5MG INH SOL UD 3ML (DUONEB)(J7620) NEB SCH ×4 (02:47→23:38)
[2019-01-19] MEDS: PIPERACILLIN/TAZOBACTAM SOD 3.375 GM in D5W MINI-BAG PLUS 50 ML IV SCH ×2 (03:50→09:24)
[2019-01-19 06:00] VITALS: BP 158/90
[2019-01-19 06:16] LABS: HEMATOCRIT 36.5 % (36.0-47.0); HEMOGLOBIN 11.9 g/dl (12.0-15.5); MEAN CORPUSCULAR HEMOGLOBIN 26.8 pg (27.0-33.0); MEAN CORPUSCULAR HGB CONC 32.6 g/dl (32.0-36.5); MEAN CORPUSCULAR VOLUME 82.2 fl (80.0-96.0); PLATELET COUNT, AUTOMATED 365 10^3/uL (150-450); RED BLOOD COUNT 4.44 10^6/uL (4.00-5.40); WHITE BLOOD COUNT 13.2 10^3/uL (4.0-10.0)
[2019-01-19 06:34] LABS: BLOOD UREA NITROGEN 13 MG/DL (7-18); CALCIUM LEVEL 8.4 MG/DL (8.5-10.1); CARBON DIOXIDE LEVEL 31 MEQ/L (21-32); CHLORIDE LEVEL 100 MEQ/L (98-107); CREATININE FOR GFR 0.64 MG/DL (0.55-1.30); GLOMERULAR FILTRATION RATE > 60.0 (>51); GLUCOSE, FASTING 135 MG/DL (70-100); POTASSIUM SERUM 3.4 MEQ/L (3.5-5.1); SODIUM LEVEL 138 MEQ/L (136-145)
[2019-01-19 06:47] LABS: LYMPHOCYTES 10 % (16-44); METAMYELOCYTES 1 % (0-0); MONOCYTES 5 % (0-5); MYELOCYTES 1 % (0-0); NEUTROPHILS 83 % (28-66); PLATELET ESTIMATE NORMAL (NORMAL)
[2019-01-19 06:48] LABS: ANISOCYTOSIS 1+
[2019-01-19 07:48] LABS: MAGNESIUM LEVEL 2.1 MG/DL (1.8-2.4)
[2019-01-19] MEDS: GABAPENTIN 400 MG CAP PO SCH ×3 (09:23→20:02)
[2019-01-19] MEDS: OXcarbazepine 150 MG TAB PO SCH ×2 (09:24→20:01)
[2019-01-19] MEDS: DEXTROMETHORPHAN 60MG/10ML SUSP 90ML BTL(DELSYM) PO SCH ×2 (09:24→19:58)
[2019-01-19] MEDS: ENOXAPARIN 40 MG/0.4 ML SYRINGE (J1650) SC SCH (09:24)
[2019-01-19] MEDS: POTASSIUM CHLORIDE 10 MEQ SR TABLET PO SCH (09:25)
[2019-01-19] MEDS: MORPHINE 15 MG SA TAB PO SCH ×2 (09:25→20:01)
[2019-01-19] MEDS: VORICONAZOLE 200MG TABLET (VFEND) PO SCH ×2 (09:26→20:01)
[2019-01-19] MEDS: BENZONATATE 100 MG CAP PO SCH ×3 (09:26→20:02)
[2019-01-19] MEDS: LOPERAMIDE 2 MG CAP PO SCH ×2 (09:26→20:02)
[2019-01-19] MEDS: FLUoxetine 20 MG CAP PO SCH ×2 (09:26→20:02)
--- NOTE | 2019-01-19 11:10 | IPN ---
DATE OF SERVICE: 01/19/2019 Patient is examined at bedside this morning. She reported she has dyspnea only while walking. It was not that she was saturating well during resting and oxygen saturation desaturates to 82% during exertion as well as walking. She reported a mild amount of cough without sputum. Denies any fever or chills. She reported her appetite has been improving compared to prior. PHYSICAL EXAMINATION: Temperature 98.2, pulse 58, respiratory rate 16, blood pressure 158/90, pulse ox 90% on 0.5 liters. GENERAL: Alert and oriented lying in bed. Appears to be in acute distress. HEENT: Head is normocephalic, atraumatic. Bilateral nares patent and without nasal cannula in place at the time of the examination. Pupils equal and round bilaterally. Mucosa appears to be moist and pink. NECK: Supple. Trachea midline. No obvious jugular venous distention (JVD). CHEST: Generalized decreased breath sounds bilaterally. Symmetric chest excursion with normal I:E ratio. No accessory muscle use or subcostal retractions noted. HEART: Regular rate and rhythm at the time of the examination. No murmur. No rubs noted. ABDOMEN: Soft. Bowel sounds auscultated in all four quadrants. Nontender. No guarding or distention noted. EXTREMITIES: Bilateral radial pulse present and equal. No obvious edema or swelling noted in bilateral lower extremities. LABS: CBC: WBC 13.2, hemoglobin 11.9, hematocrit 36.5, platelets 365, neutrophil predominance 83. BMP: Sodium 138, potassium 3.4, chloride 100, carbon dioxide 31, anion gap 7, BUN 13, creatinine 0.6, GFR greater than 60. Chest x-ray reviewed with attending Dr. Duron. Bilateral diffuse infiltrates appears to improve compared to prior chest x-ray on 01/16/2019. IMPRESSION: 1. Hypoxemia: Oxygen requiring intermittently. 2. Abnormal chest x-ray, pneumonitis, etiology unclear. 3. History of inhalation abuse. RECOMMENDATION: Patient's hypoxemia appears to be improving. This morning she did not require keeping on oxygen. She did note that during exertion/walking, her oxygen saturation desaturated to 82%. Most recently recorded pulse ox 90% on 0.5 liters. As patient's hypoxia is improving, her methylprednisolone 80 mg IV every 6 hours will be switched to prednisone 40 mg by mouth daily. She is encouraged to increase ambulation and will continued to wean oxygen to room air if possible. Patient started oral antibiotics of levofloxacin 500 mg by mouth daily. Further recommendations will be made in the progress record as new information becomes available. I was physically present for the entire interview and exam. Agree with the above assessment and plan. Likely discharge next 24-48 hrs MTDD
[2019-01-19] MEDS: LevoFLOXacin 500 MG TABLET PO SCH (11:20)
[2019-01-19 14:00] VITALS: BP 124/59
[2019-01-19 14:33] LABS: ANTI CENTROMERE ANTIBODY <0.2 AI (0.0-0.9); ANTI DS-DNA AB <1:10 titer (.); ANTI SCLERODERMA ANTIBODIES <0.2 AI (0.0-0.9); CARDIOLIPIN IGA ANTIBODY <9 APL U/mL (0-11); CARDIOLIPIN IGG ANTIBODY <9 GPL U/mL (0-14); CARDIOLIPIN IGM ANTIBODY <9 MPL U/mL (0-12)
--- NOTE | 2019-01-19 17:40 | IPNPDOC ---
Subjective Date Seen The patient was seen on 01/19/19. Subjective Chief Complaint/HPI Patient complaining of visual problem from prior to admission. She has not mentioned it before. says her distant vision is blurred.. See can see colors but cannot make out the faces on [facility] TV or the writings on the patient board. She normally uses glasses for reading which she has not been needing now. No fever or chills, no chest pain . OFF oxygen at rest this am but desaturating to low 80s on ambulating. Objective Physical Examination General Exam: Positive: Alert, Cooperative, No Acute Distress Eye Exam: Positive: PERRLA (pupupils are dialated to 7 mm but equally reacting to light, both direct and consensual light reflexes are present. ), Conjunctiva & lids normal, EOMI; Negative: Sclera icteric ENT Exam: Positive: Atraumatic, Mucous membr. moist/pink, Pharynx Normal Neck Exam: Positive: Supple; Negative: JVD, thyromegaly Chest Exam: Positive: Rales (diffuse cracles bilaterally on the upper part of the lungs. ), Diminished, Other (crackles at both the upper zones of the lungs at the back. 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 It was accompanied with some nasal congestion and runny nose and some phlegm production no hemoptysis. Her SOB has been so bad that she has been unable to ambulate from bed to bathroom. She also had 2 episodes of fever at home in the past 2 weeks. Over the summer she did have 3 attacks of SOB which lasted about 2 to 3 days each time then got better spontaneously. On arrival to the ED her Spo2 was 70% in room air, she was severely tachypneic with elevated WBC and elevated lactate. Her blood pressure down trended in the ed to 90s/50s so was started on fluid loading for possible sepsis. She had a CT angio of the chest done. Which is negative for pulmonary embolism but showed diffuse pulmonary infiltrates. The bilateral infiltrates, more prominent on superior lung vu. She was admitted for Acute hypoxic respiratory failure and possible pneumonia and sepsis. Watery diarrhea resolved c diff negative. related to antibiotics. responded to imodium Blurry vision this started prior to hospital admission. Distant vision is blurry . she said she received ketamine injection for 2 days about 3 to 4 weeks prior to admission for her chronic pain No ophthal available today will consult Dr Campos ophthal tomorrow. Acute respiratory failure with hypoxia with Pneumonitis Etiology yet undetermined. Beta 1,3 D glucan pending. RA negative. HERLINDA negation, legionella negative. pulmonary consulted appreciate input. Differentials are cryptogenic organizing pneumonia due to vape use/ less likely histo, blasto coccidiomycosis infection Bacterial infection is less likely but will empirically covered with antibiotics On levofloxacin and voriconazole finished 1 week of zosyn. cough suppressants. steroids. seems to be responding to steroids. Have started weaning of steroids. Hopefully will be able to converted to oral steroids Echo : diastolic dysfunction grade 2 , moderate pulmonary hypertension 40 to 50 with possibly increased central venous pressure. EF normal. Smoking almost 40 pack year smoker had switched to e cigarettes 2 years ago. quit about 1-2 months ago when she could not inhale the vapor any more patient states she will not use any more tobacco products or any other inhalational substances. Cannot rule out Sepsis from pneumonia though less likely Sputum positive for yeast. started on Voriconazole. was hypotensive in ED improved with IVF. continue zosyn. will change to oral antibiotics in 1 to 2 days. Hyponatremia and hyperkalemia with hypotension improved Occipital neuralgia s/p trigeminal nerve release and formation of scar neuroma which was also excised now has a dorsal column stimulator at the back of neck will hald the dose of MS Contin and continue with oxycodone with less frequency. Did discuss th side effects of of high doses of narcotics on breathing. Restless leg syndrome continue home med Low TSH will check free t4 and ft3 may be sick euthyroid syndrome will not start on medication right now. follow up as outpatient. Full code Plan/VTE VTE Prophylaxis Ordered?: Yes VS, I&O, 24H, Fishbone Vital Signs/I&O Vital Signs Date Time Temp Pulse Resp B/P (MAP) Pulse Ox O2 Delivery O2 Flow Rate FiO2 01/19/19 14:00 99.1 68 16 124/59 (80) 93 01/19/19 06:00 0.5 01/13/19 18:30 Nasal Cannula 01/13/19 12:21 98 I&O- Last 24 Hours up to 6 AM 01/19/19 06:00 Intake Total 1160 ml Output Total 1500 ml Balance -340 ml Laboratory Data 24H LABS Laboratory Tests 2 01/19/19 05:53: Immature Granulocyte % (Auto) , Nucleated Red Blood Cells % (auto) 0.2H, Neutrophils 83H, Lymphocytes (Manual) 10L, Monocytes (Manual) 5, Metamyelocytes 1H, Myelocytes 1H, Platelet Estimate NORMAL, Anisocytosis 1+, Anion Gap 7L, Glomerular Filtration Rate > 60.0, Blood Urea Nitrogen 13, Creatinine 0.64, Sodium Level 138, Potassium Level 3.4L, Chloride Level 100, Carbon Dioxide Level 31, Calcium Level 8.4L, Magnesium Level 2.1 CBC/BMP Laboratory Tests 01/19/19 05:53 Red Blood Count 4.44, Mean Corpuscular Volume 82.2, Mean Corpuscular Hemoglobin 26.8 L, Mean Corpuscular Hemoglobin Concent 32.6, Red Cell Distribution Width 15.2 H, Calcium Level 8.4 L Microbiology Microbiology 01/14/19 Acid Fast Stain - Final, Resulted 01/14/19 Mycobacterial Culture, Resulted Pending 01/14/19 Gram Stain - Final, Complete 01/14/19 Sputum Culture - Final, Complete Yeast Like Organism 01/13/19 Respiratory Virus Panel (PCR) (JAEL) - Final, Complete 01/13/19 Blood Culture - Final, Complete NO GROWTH AFTER 5 DAYS 01/13/19 Blood Culture - Final, Complete NO GROWTH AFTER 5 DAYS MARY HEADLEY MD Jan 19, 2019 17:40
[2019-01-19] MEDS: PRAVASTATIN 20 MG TAB PO SCH (20:00)
[2019-01-19] MEDS: rOPINIRole 1MG TAB PO SCH (20:00)
[2019-01-19] MEDS: PANTOPRAZOLE 40MG TAB (PROTONIX) PO SCH (20:01)
[2019-01-19 22:00] VITALS: BP 148/82
[2019-01-20] MEDS: oxyCODONE 5MG TAB PO PRN (02:31)
[2019-01-20] MEDS ORDERED: ACETAMINOPHEN TAB 650MG DOSE (2X325MG) PO ONE (04:30)
[2019-01-20] MEDS ORDERED: amLODIPine 5 MG TAB PO ONE ×2 (05:45→13:00)
[2019-01-20 06:00] VITALS: BP 192/90
[2019-01-20 06:06] VITALS: BP 192/90
[2019-01-20] MEDS: LevoFLOXacin 500 MG TABLET PO SCH (06:07)
[2019-01-20 06:25] LABS: HEMATOCRIT 38.9 % (36.0-47.0); HEMOGLOBIN 12.7 g/dl (12.0-15.5); MEAN CORPUSCULAR HEMOGLOBIN 26.8 pg (27.0-33.0); MEAN CORPUSCULAR HGB CONC 32.6 g/dl (32.0-36.5); MEAN CORPUSCULAR VOLUME 82.1 fl (80.0-96.0); PLATELET COUNT, AUTOMATED 371 10^3/uL (150-450); RED BLOOD COUNT 4.74 10^6/uL (4.00-5.40); WHITE BLOOD COUNT 12.8 10^3/uL (4.0-10.0)
[2019-01-20 06:48] LABS: BLOOD UREA NITROGEN 12 MG/DL (7-18); CALCIUM LEVEL 8.6 MG/DL (8.5-10.1); CARBON DIOXIDE LEVEL 30 MEQ/L (21-32); CHLORIDE LEVEL 100 MEQ/L (98-107); CREATININE FOR GFR 0.63 MG/DL (0.55-1.30); GLOMERULAR FILTRATION RATE > 60.0 (>51); GLUCOSE, FASTING 119 MG/DL (70-100); POTASSIUM SERUM 3.5 MEQ/L (3.5-5.1); SODIUM LEVEL 135 MEQ/L (136-145)
[2019-01-20 06:50] VITALS: BP 138/82
[2019-01-20 06:51] LABS: ANISOCYTOSIS 1+; LYMPHOCYTES 7 % (16-44); METAMYELOCYTES 1 % (0-0); MONOCYTES 10 % (0-5); MYELOCYTES 3 % (0-0); NEUTROPHILS 79 % (28-66); POIKILOCYTOSIS 1+
[2019-01-20 06:52] LABS: PLATELET ESTIMATE NORMAL (NORMAL)
[2019-01-20] MEDS: IPRATROPIUM 0.5MG/ALBUTEROL 2.5MG INH SOL UD 3ML (DUONEB)(J7620) NEB SCH (07:13)
[2019-01-20] MEDS: POTASSIUM CHLORIDE 10 MEQ SR TABLET PO SCH (08:36)
[2019-01-20] MEDS: FLUoxetine 20 MG CAP PO SCH (08:36)
[2019-01-20] MEDS: GABAPENTIN 400 MG CAP PO SCH (08:36)
[2019-01-20] MEDS: VORICONAZOLE 200MG TABLET (VFEND) PO SCH (08:37)
[2019-01-20] MEDS: BENZONATATE 100 MG CAP PO SCH (08:37)
[2019-01-20] MEDS: MORPHINE 15 MG SA TAB PO SCH (08:37)
[2019-01-20] MEDS: OXcarbazepine 150 MG TAB PO SCH (08:37)
[2019-01-20] MEDS: LOPERAMIDE 2 MG CAP PO SCH (08:38)
[2019-01-20] MEDS: ENOXAPARIN 40 MG/0.4 ML SYRINGE (J1650) SC SCH (08:38)
[2019-01-20] MEDS ORDERED: predniSONE 20 MG TAB PO SCH (09:00)
--- NOTE | 2019-01-20 10:32 | IPN ---
DATE OF VISIT: 01/20/2019 I again attended [facility]. She is feeling much better. Maximum temperature (Tmax) overnight 98.7, blood pressure generally in the 130s, heart rate in the 50s-60s, respiratory rate 16-18 and unlabored. 1310 mL in with 800 mL out. White blood cell count 12.8, hemoglobin 12.7, platelet count 371,000, 71% segs, no bands. Sodium 135, potassium of 3.5, chloride 100, CO2 30, BUN 12, creatinine 0.63. On exam, she is awake, alert, and appropriate. She has been able to be on room air. Even ambulating she only briefly drops below j88%. Generally 97% at rest. HEENT otherwise normocephalic, atraumatic. Pupils react. Neck appears supple. Trachea is in the midline. Chest clear to auscultation and percussion, symmetric expansion and no significant focal adventitious breath sounds are identified. Cardiac exam regular with no murmur or gallop. Peripheral pulses palpable with no edema. Abdomen soft, nontender with active bowel sounds. No convincing organomegaly or masses. Extremities without cyanosis or clubbing. Neurologically, she is awake, alert and appropriate. Psychiatric with normal mood and affect. IMPRESSION: 1. Interstitial disease, steroid responsive versus primary pneumonitis, inhalationally related. 2. Inhalational habits. RECOMMENDATIONS: At this point, she is on oral antibiotics and steroids. We can taper those over several weeks, as far as the steroids are concerned, she should complete 7-10 days of additional antimicrobials. I spoke at length with Dr. Cowart, who has taken over for Dr. Hitchcock and will be in charge of engineering her discharge. She should see Dr. Barrera in the pulmonary clinic in several weeks. We had a long discussion regarding the need to be completely free of all inhalational products. We agree with her discharge plans. She will be seen by Dr. Barrera in followup.
[2019-01-20] MEDS: DEXTROMETHORPHAN 60MG/10ML SUSP 90ML BTL(DELSYM) PO SCH (10:41)
[2019-01-20] MEDS ORDERED: COMPMIS43 XX (11:25)
[2019-01-20] MEDS ORDERED: VFEN200T PO (11:25)
[2019-01-20] MEDS ORDERED: [UNRECOGNIZED DRUG - CODE] XX (11:25)
[2019-01-20] MEDS ORDERED: LEVA1TAB2 PO (11:25)
[2019-01-20] MEDS ORDERED: ALB2.5NEB NEB (11:25)
[2019-01-20] MEDS ORDERED: PRED10TA2 PO (11:27)
[2019-01-20] MEDS ORDERED: MORP15TASA PO (11:27)
[2019-01-20] MEDS ORDERED: OXYCO5TA PO (11:30)
[2019-01-20] MEDS ORDERED: NORV5TAB PO (12:55)
--- NOTE | 2019-01-20 19:09 | DSES ---
DATE OF ADMISSION: 01/13/2019 DATE OF DISCHARGE: 01/20/2019 CONSULTANTS: Dr. Maikel Duron PRIMARY DISCHARGE DIAGNOSES: 1. Pneumonitis. 2. Hypoxemic respiratory failure. 3. Previous tobacco abuse. 4. Antibiotic induced diarrhea. 5. Prednisone induced blurred vision. 6. Acute hypoxic respiratory failure with pneumonitis. 7. 40 pack year history of smoking. 8. Hyponatremia. 9. Hyperkalemia. 10. Restless legs. 11. Hypothyroidism. 12. Occipital neuralgia, status post trigeminal nerve release. 13. Scar neuroma, status post excision. DISCHARGE MEDICATIONS: - albuterol 2.5 every 8 hours as needed - Norvasc 5 mg daily - Levaquin 500 mg daily - morphine 15 mg twice a day - oxycodone 5 mg every 5 hours as needed - prednisone taper - voriconazole 200 mg twice a day for 7 days - Biotin 2500 mcg daily - vitamin B12 1000 mcg daily - vitamin D 50,000 units weekly - fluoxetine 20 mg twice a day - gabapentin 1200 mg three times a day - oxcarbazepine 450 mg twice a day - Protonix 40 mg daily - pravastatin 40 mg at night - ropinirole 1 mg at night HOSPITAL COURSE: This is a 48-year-old female admitted with complaints of shortness of breath and cough for 1 week, nasal congestion, runny nose. The patient had subjective fevers for the past 2 weeks. She was found to be tachypneic with leukocytosis, lactic acidosis, oxygen saturation 70% on room air. CT of the chest was negative for pulmonary embolism but showed diffuse pulmonary infiltrates. The patient was admitted for possible pneumonitis and was started on IV Solu-Medrol. The patient did well on IV Solu-Medrol with improvement in her respiratory status. She was on room air and saturating 94 to 96%. She was instructed not to use any E-cigarettes as this could have caused sudden decompensation. The patient was continued on antibiotics, Levaquin. Sputum culture grew out yeast-like organism and she was put on voriconazole. Since the patient did quite well on oral prednisone, per Dr. Duron, continue with tapering dose of prednisone for 2 weeks, continue with Levaquin and voriconazole. The patient is to followup with Dr. Barrera as an outpatient. LABORATORY DATA: On discharge: White count 12.8, hemoglobin 12, hematocrit 38, platelet count 371. Sodium 135, potassium 3.5, chloride 100, bicarbonate 30, BUN 12, creatinine 0.63, glucose of 119. Microbiology: Yeast-like organism in the sputum. Sputum acid fast stain was negative. 01/18/2019 chest x-ray showed improvement in the bilateral patchy lung field opacities, mild cardiomegaly, status quo, no change in the osseous structures. CT of the chest on 01/13/2019 showed no pleural effusion, diffuse bilateral alveolar infiltrates. Time spent on discharge: 30 minutes. MTDD
[2019-01-21] MEDS ORDERED: amLODIPine 5 MG TAB PO SCH (09:00)
== END 2019-01-20 13:09 | disposition home or self-care (01) | DRG 196 ==
LOC: M ED 11:59 → M ED INP 15:45 → M PCU 18:48 → M MSPAV 01-15 16:23
PROVIDERS: ADMIT Internal Medicine Nephrology; ATTEND General Practice
DX: J84.116 Cryptogenic organizing pneumonia (principal); J96.01 Acute respiratory failure with hypoxia; E87.1 Hypo-osmolality and hyponatremia; F11.20 Opioid dependence, uncomplicated; E87.2 Acidosis; E87.5 Hyperkalemia; G25.81 Restless legs syndrome; E03.9 Hypothyroidism, unspecified; R19.7 Diarrhea, unspecified; M54.81 Occipital neuralgia; Z79.899 Other long term (current) drug therapy; I10 Essential (primary) hypertension; F17.210 Nicotine dependence, cigarettes, uncomplicated; M19.90 Unspecified osteoarthritis, unspecified site; E55.9 Vitamin D deficiency, unspecified

== ENCOUNTER → 2019-02-05 | Outpatient (CLI) | payer MEDICARE, BC, OTHER ==
[~2019-02-05] MED LIST changes: +ALB2.5NEB NEB; +AMLO5TAB6 PO; +BIOT2500 PO; +COMPMIS43 XX; +CYAN100050 PO; +FLUO20CA19 PO; +GABA600T4 PO; +LEVA1TAB2 PO; +MORP15TASA PO; +MORP30TASA PO; +NORV5TAB PO; +OXCA150T21 OR; +OXYC-517 PO; +OXYCO5TA PO; +PANT40TA3 PO; +PRAV40TA2 PO; +PRED10TA2 PO; +ROPI1TAB PO; +VFEN200T PO; +VITA500045 PO; +[UNRECOGNIZED DRUG - CODE] XX
--- NOTE | 2019-02-05 09:59 | REP ---
Clinical: Chest pain and elevated D-dimer levels . Comparison: 01/18/2019 . Technique: PA and lateral. Findings: The mediastinum and cardiac silhouette are normal. The visualized lung vu demonstrate chronic stable changes without acute consolidation, effusion, or pneumothorax. Previously noted patchy basilar infiltrates have essentially resolved. The skeletal structures are intact and normal. Impression: 1. No acute cardiopulmonary process. 2. Previously noted basilar infiltrates have essentially resolved. Electronically Signed by Antoine Villalba MD 02/05/2019 09:50 A
== END ==
LOC: M LAB 09:28
PROVIDERS: ATTEND Internal Medicine Pulmonary Disease
DX: R05 Cough (principal)

== ENCOUNTER → 2019-02-26 | Outpatient (CLI) | payer MEDICARE, BC, OTHER ==
--- NOTE | 2019-02-26 11:41 | REP ---
CT CHEST WITHOUT CONTRAST: HISTORY: Other nonspecific abnormal finding of the lung field. Comparison CT study January 13, 2019 and December 30, 2014. CT FINDINGS: Preliminary digital technical buyer radiograph demonstrates the power plant for a neurostimulator device overlying the left subclavicular region. There are clips in right upper quadrant of the abdomen. The lung vu are essentially clear. The patchy alveolar and interstitial infiltrate seen on January 13, 2019 have resolved. The infiltrates observed in 2014 are not present. No pulmonary nodule or mass lesion is observed. There are a few peripheral tiny bullae in the upper lobes and the lower lobes bilaterally. There is a 2 cm area of ground-glass opacity in the right lower lobe abutting the major fissure. There is a tiny 1 cm ground-glass opacity in the left lower lobe. A subcentimeter ground-glass opacity is visible in the left upper lobe anteriorly. There are clips in the gallbladder fossa. Visualized upper abdominal structures are unremarkable. No adrenal lesion is seen. No adenopathy is noted in the mediastinum or hilar regions. There are scattered normal-sized mediastinal lymph nodes. No bony destructive lesion is seen. IMPRESSION: There are scattered small subcentimeter bullae. There are a few scattered foci of ground-glass opacity 1-2 cm in diameter. Lung vu are otherwise clear. The previously noted infiltrates have resolved. Electronically Signed by Salty Nelson MD 02/26/2019 01:12 P
== END ==
LOC: M RAD 09:59
PROVIDERS: ATTEND Internal Medicine Pulmonary Disease
DX: R91.8 Other nonspecific abnormal finding of lung field (principal)

== ENCOUNTER → 2019-04-27 | Outpatient (CLI) | payer MEDICARE, BC, OTHER ==
[~2019-04-27] MED LIST changes: +ISOVUE-370 76% 100ML VIAL (Q9967) As Ordered ONE
--- NOTE | 2019-04-27 19:08 | REP ---
CT of the chest with IV contrast: Comparison is the most recent prior study dated 04/06/2019 from [facility]. There are bilateral confluent ground-glass densities in the upper lobes bilaterally that have improved from the comparison study. There are a few small scattered ground-glass densities in the lower lobes bilaterally that have improved from the comparison study. There are no pleural effusions. The mediastinal adenopathy has not significantly changed. The bilateral hilar adenopathy is not significantly changed. The scattered bulla, particularly in the upper lobes have not significantly changed. The thoracic aorta is unremarkable. Cardiac size is normal. There is no pericardial effusion. Upper abdomen: The visualized areas of the liver, spleen, pancreas, adrenals and kidneys are unremarkable. There are surgical clips in the gallbladder fossa. The common biliary duct measures 11 mm in diameter. This is upper normal for post cholecystectomy patient. Impression: The ground-glass densities in the lung vu bilaterally have improved. There is no other significant interval change. Electronically Signed by Krish Lucia MD 04/27/2019 06:59 P
== END ==
LOC: M RAD 16:57
PROVIDERS: ATTEND Surgery
DX: J96.01 Acute respiratory failure with hypoxia (principal); R91.8 Other nonspecific abnormal finding of lung field
CPT/HCPCS: 71260; Q9967

== ENCOUNTER 2019-09-24 22:26 | Inpatient (IN) | payer MEDICARE, BC, OTHER ==
[~2019-09-24] VITALS: Ht 149.9 cm; Wt 69.3 kg
[2019-09-24] MEDS: rOPINIRole 1MG TAB NG SCH (21:00)
[2019-09-24] MEDS: GABAPENTIN 300 MG CAP NG SCH (21:00)
[2019-09-24] MEDS: PRAVASTATIN 20 MG TAB NG SCH (21:00)
[~2019-09-24 22:26] MED LIST changes: -FLUO20CA19 PO; +FLUO20CA22 PO; -ISOVUE-370 76% 100ML VIAL (Q9967) As Ordered ONE; -OXCA150T21 OR; +OXCA150T21 PO; -ROPI1TAB PO; +ROPI1TAB3 PO
[2019-09-24] MEDS ORDERED: COMBIVENT RESPIMAT 100-20MCG INHALER 4GM INH ONE (22:45)
[2019-09-24] MEDS ORDERED: methylPREDNISolone INJ 125 MG/2 ML VIAL (J2930) IV ONE (22:45)
[2019-09-24 22:52] LABS: BASO # 0.1 10^3/uL (0.0-0.2); BASO % 0.4 % (0.0-1.0); EOS % 0.1 % (0.0-3.0); HEMOGLOBIN 11.4 g/dl (12.0-15.5); LYMPH # 1.6 10^3/uL (1.5-5.0); LYMPH % 6.1 % (24.0-44.0); MEAN CORPUSCULAR HEMOGLOBIN 27.6 pg (27.0-33.0); MEAN CORPUSCULAR HGB CONC 33.5 g/dl (32.0-36.5); MEAN CORPUSCULAR VOLUME 82.3 fl (80.0-96.0); MONO # 1.2 10^3/uL (0.0-0.8); MONO % 4.6 % (0.0-5.0); NEUTROPHILS # 23.6 10^3/uL (1.5-8.5); PLATELET COUNT, AUTOMATED 361 10^3/uL (150-450); RED BLOOD COUNT 4.13 10^6/uL (4.00-5.40); WHITE BLOOD COUNT 26.8 10^3/uL (4.0-10.0)
[2019-09-24 23:00] LABS: INR 1.01
[2019-09-24] MEDS ORDERED: ACETAMINOPHEN TAB 650MG DOSE (2X325MG) PO ONE (23:00)
[2019-09-24] MEDS ORDERED: IBUPROFEN 600MG TAB PO ONE (23:00)
[2019-09-24 23:01] LABS: PARTIAL THROMBOPLASTIN TIME 27.7 SECONDS (25.0-38.4)
[2019-09-24 23:30] LABS: ALBUMIN 3.3 GM/DL (3.2-5.2); ALT/SGPT 21 U/L (12-78); BILIRUBIN,DIRECT 0.1 MG/DL (0.0-0.2); BILIRUBIN,TOTAL 0.3 MG/DL (0.2-1.0); BLOOD UREA NITROGEN 8 MG/DL (7-18); CALCIUM LEVEL 8.5 MG/DL (8.5-10.1); CARBON DIOXIDE LEVEL 21 MEQ/L (21-32); CHLORIDE LEVEL 97 MEQ/L (98-107); CK-MB VALUE MASS < 1.0 NG/ML (<3.6); CPK CREATINE PHOSPHOKINASE 98 U/L (26-192); CREATININE FOR GFR 0.82 MG/DL (0.55-1.30); FREE T4 1.08 NG/DL (0.76-1.46); GLOMERULAR FILTRATION RATE > 60.0 (>51); GLUCOSE, FASTING 118 MG/DL (70-100); MB/CK RELATIVE INDEX 1.02 (< OR =4); NT-PRO BNP 143 PG/ML (<125); POTASSIUM SERUM 4.4 MEQ/L (3.5-5.1); SODIUM LEVEL 126 MEQ/L (136-145); THYROID STIMULATING HORMONE 0.495 uIU/ML (0.358-3.740); TOTAL PROTEIN 6.5 GM/DL (6.4-8.2); TROPONIN I < 0.02 NG/ML (< 0.10)
[2019-09-24] MEDS ORDERED: SUCCINYLCHOLINE INJ 200 MG/10 ML VIAL (J0330) IV ONE (23:30)
[2019-09-24] MEDS ORDERED: propofoL 1,000 MG in IV 1 EA IV SCH (23:30)
[2019-09-24] MEDS ORDERED: ETOMIDATE INJ 20MG/10ML VIAL IV ONE (23:30)
[2019-09-24] MEDS ORDERED: MORP30TASA PO (23:33)
[2019-09-24] MEDS ORDERED: OXYC-517 PO (23:33)
[2019-09-24] MEDS ORDERED: VITA50005 PO (23:48)
[2019-09-24] MEDS ORDERED: ALBU83IN NEB (23:48)
[2019-09-24] MEDS ORDERED: AMLO5TAB6 PO (23:48)
[2019-09-24] MEDS ORDERED: COMMENTS (23:59)
[2019-09-25] VITALS (29 sets, daily range): BP systolic 92–139; BP diastolic 47–68
[2019-09-25] MEDS ORDERED: VANCOMYCIN HCL 1,000 MG, VIAL MATE ADAPTER 1 EACH in D5W 250 ML IV ONE ×3
[2019-09-25] MEDS ORDERED: PIPERACILLIN/TAZOBACTAM SOD 4.5 GM in D5W MINI-BAG PLUS 50 ML IV ONE ×2
[2019-09-25] MEDS ORDERED: MIDAZOLAM 5MG/ML 1ML VIAL (J2250 PER 1MG) As Ordered ONE (00:04)
[2019-09-25] MEDS ORDERED: MIDAZOLAM INJ 2MG/2ML VIAL (J2250 PER 1MG) IV ONE (00:15)
[2019-09-25] MEDS ORDERED: NS 2,110 ML in IV 1 EA IV ONE (00:30)
[2019-09-25] MEDS: MIDAZOLAM INJ 2MG/2ML VIAL (J2250 PER 1MG) IV PRN ×7 (01:03→21:16)
[2019-09-25] MEDS ORDERED: LIDOCAINE W/EPINEPHRINE 1% 20ML VIAL SC ONE (01:45)
[2019-09-25] MEDS: fentaNYL 100 MCG/2 ML INJECTION (J3010) IV PRN ×6 (02:05→20:23)
[2019-09-25] MEDS: propofoL 1,000 MG in IV 1 EA IV SCH ×6 (03:04→21:52)
[2019-09-25] MEDS: IPRATROPIUM 0.5MG/ALBUTEROL 2.5MG INH SOL UD 3ML (DUONEB) NEB SCH ×5 (03:11→19:30)
[2019-09-25 03:12] LABS: ABG BASE EXCESS -6.2 (-2.0-2.0); ABG HCO3 18.8 MEQ/L (22.0-26.0); ABG O2 SATURATION 99.7 % (95.0-99.0); ABG PARTIAL PRESSURE CO2 35.2 mmHg (35.0-45.0); ABG PARTIAL PRESSURE O2 185.5 mmHg (75.0-100.0); ABG STANDARD HCO3 19.4 MEQ/L (22.0-26.0); ABG TOTAL CO2 19.9 MEQ/L (22.0-29.0); ABG pH (ARTERIAL) 7.345 UNITS (7.350-7.450)
[2019-09-25 03:47] LABS: BLOOD UREA NITROGEN 8 MG/DL (7-18); CARBON DIOXIDE LEVEL 22 MEQ/L (21-32); CHLORIDE LEVEL 103 MEQ/L (98-107); CREATININE FOR GFR 0.66 MG/DL (0.55-1.30); GLOMERULAR FILTRATION RATE > 60.0 (>51); GLUCOSE, FASTING 149 MG/DL (70-100); POTASSIUM SERUM 4.1 MEQ/L (3.5-5.1); SODIUM LEVEL 134 MEQ/L (136-145)
--- NOTE | 2019-09-25 07:29 | ECGEPIP ---
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
--- NOTE | 2019-09-25 08:05 | REP ---
Portable chest x-ray: Single view. History: Chest pain. Comparison study: February 05, 2019. Findings: A nerve stimulator power plant projects in the left supraclavicular soft tissues. Monitoring electrodes are seen. The lungs are under aerated and there is diffuse interstitial lung disease consistent with advanced interstitial edema. This is new when compared with the February 05, 2019 study. No pleural effusion is seen. Heart is not felt to be enlarged. Electronically Signed by Salty Nelson MD 09/25/2019 07:57 A
[2019-09-25] MEDS: methylPREDNISolone INJ 40 MG/1 ML VIAL (J2920) IV SCH ×2 (08:53→15:30)
[2019-09-25] MEDS: CHLORHEXIDINE GLUCONATE 0.12 % 15ML UDC (PERIDEX ORAL RINSE) MT SCH ×2 (08:58→20:21)
[2019-09-25] MEDS ORDERED: OXcarbazepine 150 MG TAB PO SCH (09:00)
[2019-09-25] MEDS: GABAPENTIN 300 MG CAP NG SCH ×4 (09:00→20:22)
[2019-09-25] MEDS ORDERED: OXcarbazepine 300MG 5ML SUSP ORAL SYRINGE *DRAW UP EXACT DOSE PO SCH (09:00)
[2019-09-25] MEDS: AZITHROMYCIN INJ 500 MG, VIAL MATE ADAPTER 1 EACH in D5W 250 ML IV SCH (09:00)
[2019-09-25] MEDS: ENOXAPARIN 40MG/0.4ML SYRINGE (J1650 PER 10MG) SC SCH (09:01)
[2019-09-25] MEDS: PANTOPRAZOLE 40MG VIAL (C9113 PER 1) IV SCH (09:01)
--- NOTE | 2019-09-25 09:44 | REP ---
PORTABLE CHEST X-RAY: Single view. 11:46 p.m. film. HISTORY: Evaluate endotracheal tube. Comparison chest x-ray 10:59 p.m. on 09/24/2019. FINDINGS: Endotracheal tube has been passed into good position just above the level of the transverse aorta. An NG tube enters left upper quadrant. Monitoring electrodes are seen. A neurostimulator power plant projects in the left supraclavicular and subclavicular region. Diffuse interstitial lung disease is again noted consistent with advanced interstitial edema. This appears more prominent than on the earlier film although this difference may be partially technique. There is bilateral hilar fullness. Heart size is borderline. IMPRESSION: Severe diffuse bilateral interstitial lung disease most consistent with diffuse interstitial edema. Bilateral hilar fullness. Endotracheal and nasogastric tubes in good position. Electronically Signed by Salty Nelson MD 09/25/2019 12:45 P
[2019-09-25] MEDS ORDERED: cefTRIAXone SOD 1 GM in D5W MINI-BAG PLUS 50 ML IV SCH (10:00)
--- NOTE | 2019-09-25 10:14 | REP ---
REASON: Followup. The endotracheal tube is again seen in satisfactory position. The nasogastric tube is unchanged with the tip of the tube being in the stomach's antral region. Bilateral airspace opacities are again noted slightly improved. No new abnormal opacities are evident. The pleural angles are unchanged. The technique utilized in obtaining the radiograph has magnified the cardiac silhouette and accentuated the interstitial markings. There is no change in the osseous structures. Battery and hardware from stimulator device status quo. IMPRESSION: There is evidence of slight improvement. Electronically Signed by Gene Hamm DO 09/25/2019 01:45 P
--- NOTE | 2019-09-25 10:30 | HPE ---
DATE OF ADMISSION: 09/25/2019 CHIEF COMPLAINT: Shortness breath. HISTORY OF PRESENT ILLNESS: Miss Colón is a 48-year-old female with a past medical history of the hypertension, trigeminal and occipital neuralgia, osteoarthritis, insomnia, restless leg syndrome, and chronic pain and opioid use who presents with complaints of shortness of breath. The patient is currently intubated, so the history is obtained from the chart and other collateral information. The patient reportedly had been camping with her when she started complaining of symptoms of shortness of breath, which was worsening in the past day or two, as well as with increased cough. Reportedly on Emergency Medical Services (EMS) arrival, the patient appeared to be in some respiratory distress and anxious as well at this is tachypneic. She was also hypoxic and placed on non-rebreather. EMS had also given the patient nebulizer treatment as well as a Decadron injection. In the emergency department (ED), the patient was noted to be febrile. She was also hypoxic and requiring oxygen supplementation with non-rebreather, and continued to have tachypnea and anxiety secondary to her dyspnea and shortness of breath. She was only able to speak in short 2 or 3 word burst with some effort. Given her severe hypoxemic respiratory failure, the patient was intubated in the ED by the ED physician. She was placed on propofol for sedation but did have periods of agitation requiring Versed as needed. She was started on intravenous (IV) fluids, had not received the bolus yet. She is also awaiting broad- spectrum antibiotics. The patient did receive Tylenol in the ED as well as an additional Solu-Medrol 125 mg. The patient will be transferred to the medical intensive care unit (ICU) for further management. The patient does have a history of these episodes of hypoxic respiratory failure along with the CT and chest x-ray abnormalities as well as having fevers. She was hospitalized in January of 2019 with complaints of progressive dyspnea and cough as well as intermittent fevers up to 104 at that time also. She had also reported prior to her hospitalization in January episodes in the summer last year where she would have periodic episodes of shortness of breath, which would then resolve on its own. At that admission, her imaging was noted for bilateral upper ground-glass opacities with some more confluent infiltrates in the mid and lower lobe on the left. She was treated with antibiotics as well as with steroids for possible pneumonitis or interstitial lung disease. She had at that time been reporting a history of vaping as well as cigarette smoke. She did improve with the antibiotics and steroids and was weaned off of oxygen supplementation. Her repeat imaging had also shown complete resolution of the previous ground-glass opacities. During her admission in January, the patient did have testing for rheumatoid factor, ANCA, and other connected tissue disease and interstitial lung disease antibodies which were negative. The patient then was admitted in [facility] in March of 2019, when she had initially presented for a ketamine infusion for her chronic pain and was noted to be hypoxic. At that time, she had a CT at [facility] which had showed patchy ground-glass opacities again involving the upper lobes and mid and lower lungs as well as some mild adenopathy. She did have a bronchoscopy performed on that admission for which the bronchoalveolar lavage (BAL) was negative in terms of bacteria. Acid-fast bacilli (AFB) stain was negative. PCP and Legionella was also negative. The patient was treated again with broad-spectrum antibiotics as well as steroids, and she did have improvement. There was discussion at that time about referral for an open lung biopsy with cardiothoracic surgeon, but patient did not have biopsy performed. She did followup with pulmonology as an outpatient with Dr. Barrera in April. During that visit, the patient had stated that she was still using cigarettes but had stopped vaping or using any E-cigarettes. She did have a repeat CT done in April, which had shown compared to the previous in March when she was in [facility] significant improvement in the ground-glass opacities, but she did still have residual areas of ground-glass opacity noted mostly in the upper lobes bilaterally and to a lesser degree in the lower lobes more on the left side. The patient was scheduled for a followup visit with pulmonary, which she did not have done. PAST MEDICAL HISTORY: 1. Osteoarthritis. 2. Trochanteric bursitis of the left hip. 3. History of sinusitis. 4. History of bronchitis. 5. Insomnia. 6. Appendicitis. 7. Reported cholelithiasis. 8. Nicotine dependence. 9. Restless leg syndrome. 10. Vitamin D deficiency. 11. Occipital and trigeminal neuralgia. PAST SURGICAL HISTORY: 1. Status post trigeminal nerve release and a scar neuroma excision with a dorsal column stimulator in the back of the neck. 2. History of previous multiple cervical surgeries with decompression/. 3. Appendectomy. 4. Cholecystectomy. 5. section times two. HOME MEDICATIONS: - amlodipine 5 mg daily - vitamin B12 - ergocalciferol - fluoxetine 20 mg twice a day - gabapentin 1200 mg by mouth three times a day - morphine 30 mg three times a day as needed - oxcarbazepine 450 mg by mouth twice a day - oxycodone 10 mg by mouth three times a day as needed - pantoprazole 40 mg - pravastatin 40 mg at bedtime - ropinirole 1 mg by mouth at bedtime - albuterol as needed ALLERGIES: NO KNOWN DRUG ALLERGIES. SOCIAL HISTORY: The patient is a current active smoker of one pack a day for the past 36 years. She uses medical marijuana as well. Had previously uses E-cigarettes and vape but has not used any since her last hospitalization at [facility]. She has two dogs at home. Denies other pets including birds. Denies hobbies involving dust, no wood working or stone working. FAMILY HISTORY: Father with history of renal cell carcinoma of the age of 44. Mother with history of chronic obstructive pulmonary disease (COPD), hypertension, asthma, pancreatic cancer. No history of autoimmune family history including connect tissue disease. PHYSICAL EXAMINATION: Maximum temperature (Tmax) was 104. Pulse is 74. Blood pressure is 112/65. Oxygen saturation is 100% on ventilator. GENERAL: The patient is intubated and sedated. She is responsive to painful stimuli and moving all four extremities but not following commands appropriately. HEENT: Normocephalic, atraumatic. Pupils are small but reactive to light bilaterally. There are moist mucous membranes noted. Neck is supple. Trachea is midline. There is a dorsal nerve stimulator in her neck with the battery pack in the anterior left chest. CARDIOVASCULAR: Regular rate and rhythm. Normal S1, S2. Unable to appreciate any murmurs. Point of maximum impulse (PMI) is nondisplaced. PULMONARY: There is coarse ventilated breath sounds bilaterally with few crackles and rare rhonchi. No wheezing noted. ABDOMEN: It is soft, nontender, nondistended. No palpable mass. EXTREMITIES: There is no lower extremity edema noted bilaterally. There is no rashes noted. LABORATORY DATA: WBC 26.8, hemoglobin 11.4, platelets are 361. Eosinophils are negative. Chemistry: Sodium is 126, potassium 4.4, chloride is 97, bicarbonate 21, BUN 8, creatinine 0.82, glucose is 118. Lactic acid elevated at 2.7. AST, ALT within normal limits. Albumin is 3.3. Alkaline phosphatase is normal. Troponins are negative. TSH is within normal limits. Arterial blood gas (ABG) on admission pH 7.421, pCO2 of 30.4, pO2 of 63. IMAGING: Chest x-ray shows endotracheal (ET) tube in good position. Orogastric (OG) tube coursing below the diaphragm. There is a dorsal spinal stimulator in place with the battery in the left anterior chest. There is diffuse bilateral interstitial opacities with some perihilar predominance. ASSESSMENT AND PLAN: Ms. Colón is a 48-year-old female with a past medical history of osteoarthritis, trigeminal and occipital neuralgia, status post nerve stimulator, with a history of chronic pain and opioid dependence who presented with complaints of shortness of breath and respiratory distress. The patient was found to have acute hypoxemic respiratory failure on admission with a chest x-ray showing bilateral diffuse interstitial opacities. She was given steroids in the field as well as in the ED and nebulizer treatment. She was placed on a non-rebreather but continued to have severe respiratory distress and required intubation and mechanical ventilation. In the ED, the patient was also febrile and noted to have leukocytosis. She was ordered for broad spectrum IV antibiotics as well as IV fluid boluses which is pending. Acute hypoxemic respiratory failure with sepsis likely secondary to respiratory infection. The patient does have a previous history however of hypoxia and CT findings of diffuse ground-glass opacities predominately in the upper lobes which improve with antibiotics and steroids. She has had two of these episodes so far and two previous hospitalizations in the past year. There was some thought previously of potential pneumonitis possibly due to vaping or E-cigarettes; however, the patient had quit vaping and E-cigarettes when she had her second presentation at [facility] in March. Given her ongoing cigarette use however, the patient may have a component of respiratory bronchiolitis as when she is hospitalized she is given steroids and she is not smoking cigarettes which may contribute to some of the improvement. Other possibilities include hypersensitivity pneumonitis, although the patient previously had not had any of a classic reported exposure. Connective tissue disease associated although is less likely as the patient had previously had testing including ANCA, rheumatoid factor, Sjogren antibodies which were negative. Acute eosinophilic pneumonia is also less likely as well, and chronic eosinophilic pneumonia is unlikely as she does not have any peripheral eosinophilia. - Given concern for sepsis, would continue with the broad-spectrum antibiotics. Will continue with ceftriaxone and azithromycin for CAP with coverage for atypicals - Will check a sputum culture as well as Legionella and Mycoplasma for atypical infectious etiology. - Will continue with steroids. She received Solu-Medrol 125 mg in the ED and will continue with 40 mg IV every 8 for possible pneumonitis such as hypersensitivity or respiratory bronchiolitis. - The patient will be given IV fluid bolus as per sepsis protocol. Will continue to monitor for continued fluid requirements. She does have a very mildly elevated BNP and have to monitor for signs of fluid overload. - Will continue to trend lactic acidosis. - Continue the patient on mechanical ventilation with volume control with settings of 400/12/110 and continue to wean down FiO2 as tolerated to maintain oxygen saturation above 90%. - Will follow repeat ABG once intubated and continue with daily ABGs and chest x-rays while intubated. - Continue with vent bundle care with head of bed elevation and chlorhexidine mouthwash. - The patient will likely need bronchoscopy for further evaluation, although given the suspicion for interstitial lung disease, she may also need a lung biopsy as well. Will discuss with the patient's about further diagnostic testing. Occipital neuralgia status post trigeminal nerve release and formation of scar neuroma which was also excised and status post dorsal column stimulator. - The patient is on chronic opioids as an outpatient as well as other medications for her neuropathic pain. Will continue with the gabapentin as well as Trileptal and will continue with pain control with fentanyl while intubated. - Continue with propofol for sedation while intubated with Versed as needed for agitation. Hyponatremia likely secondary to hypovolemia. Will followup sodium and continue to monitor urine output and renal function. Will avoid nephrotoxins as possible and renally dose medications. Restless leg syndrome- Will continue with ropinirole. Deep venous thrombosis (DVT) prophylaxis with Lovenox. Gastrointestinal (GI) prophylaxis with pantoprazole. CODE STATUS: FULL CODE. Total critical care time spent not including procedures approximately 2 hours and 20 minutes. MTDD
[2019-09-25] MEDS ORDERED: MIDAZOLAM INJ 2MG/2ML VIAL (J2250 PER 1MG) IV STA (11:08)
[2019-09-25] MEDS ORDERED: fentaNYL 100 MCG/2 ML INJECTION (J3010) IV ONE (11:15)
[2019-09-25] MEDS ORDERED: ROCURONIUM BROMIDE 50 MG/5 ML VIAL IV ONE (11:15)
--- NOTE | 2019-09-25 13:33 | RO ---
DATE OF PROCEDURE: 09/25/2019 PROCEDURE: Flexible bronchoscopy procedure. PREOPERATIVE DIAGNOSIS: Acute hypoxemic respiratory failure. POSTOPERATIVE DIAGNOSIS: Acute hypoxemic respiratory failure. INDICATION: Evaluation for infection and interstitial lung disease. PROCEDURE PERFORMED BY: Dr. Fernandez CONSENT: Consent was obtained from the patient's prior to procedure. Risk and benefits were explained at length. ANESTHESIA: Patient is intubated on ventilator . She is on propofol for general anesthesia. She received as needed Versed 2 mg IV, fentanyl 100 mcg IV push, and rocuronium 50 mg for paralytic for the procedure. PROCEDURE SUMMARY: Time-out was performed prior to procedure identifying correct patient, site and procedure. Cetacaine spray was used to anesthetize the airway and provide lubrication through the endotracheal tube (ET) tube. A bedside flexible while light bronchoscopy was performed. The patient's trachea appeared normal. Tamika was sharp. There was no endobronchial lesions noted and scant mucoid secretions noted only. Bronchial anatomy appeared normal in the right and left lung. There were some mucosal nodularity more in the left lower lobe and lingula. The patient had a bronchoalveolar lavage performed in the right middle lobe, as well as a bronchoalveolar lavage performed in left lingula. There was no significant bleeding noted. The patient had no immediate complications. Specimens were sent for studies. [facility] HEALTH SYSTEMIsaias
[2019-09-25 14:37] LABS: APPEARANCE CLOUDY (CLEAR); COLOR PINK (COLORLESS); SOURCE RIGHT MIDDLE LOBE
[2019-09-25 14:40] LABS: APPEARANCE HAZY (CLEAR); SOURCE LEFT UPPER LOBE
[2019-09-25] MEDS ORDERED: SUCCINYLCHOLINE 100 MG/5 ML SYRINGE (J0330) ONE (16:34)
[2019-09-25] MEDS ORDERED: ETOMIDATE INJ 20MG/10ML VIAL ONE (16:34)
[2019-09-25] MEDS: OXcarbazepine 150 MG TAB PO SCH (19:00)
[2019-09-25] MEDS: PRAVASTATIN 20 MG TAB NG SCH (20:22)
[2019-09-25] MEDS: rOPINIRole 1MG TAB NG SCH (20:22)
[2019-09-25] MEDS ORDERED: NS 500 ML IV ONE (22:15)
[2019-09-26] VITALS (19 sets, daily range): BP systolic 98–137; BP diastolic 51–73; O2SAT 94
[2019-09-26] MEDS: IPRATROPIUM 0.5MG/ALBUTEROL 2.5MG INH SOL UD 3ML (DUONEB) NEB SCH ×7 (00:54→23:58)
[2019-09-26] MEDS: methylPREDNISolone INJ 40 MG/1 ML VIAL (J2920) IV SCH (00:59)
[2019-09-26] MEDS: fentaNYL 100 MCG/2 ML INJECTION (J3010) IV PRN ×2 (01:00→02:15)
[2019-09-26] MEDS: propofoL 1,000 MG in IV 1 EA IV SCH ×2 (02:16→05:45)
[2019-09-26 02:24] LABS: CK-MB VALUE MASS < 1.0 NG/ML (<3.6); CPK CREATINE PHOSPHOKINASE 45 U/L (26-192); MB/CK RELATIVE INDEX 2.22 (< OR =4); TROPONIN I < 0.02 NG/ML (< 0.10)
[2019-09-26 04:14] LABS: BASO % 0.2 % (0.0-1.0); HEMATOCRIT 28.9 % (36.0-47.0); HEMOGLOBIN 9.6 g/dl (12.0-15.5); LYMPH # 1.1 10^3/uL (1.5-5.0); LYMPH % 4.3 % (24.0-44.0); MEAN CORPUSCULAR HEMOGLOBIN 27.6 pg (27.0-33.0); MEAN CORPUSCULAR HGB CONC 33.2 g/dl (32.0-36.5); MONO # 0.9 10^3/uL (0.0-0.8); MONO % 3.5 % (0.0-5.0); NEUTROPHILS # 23.7 10^3/uL (1.5-8.5); NEUTROPHILS % 91.4 % (36.0-66.0); PLATELET COUNT, AUTOMATED 316 10^3/uL (150-450); RED BLOOD COUNT 3.48 10^6/uL (4.00-5.40); WHITE BLOOD COUNT 25.9 10^3/uL (4.0-10.0)
[2019-09-26 04:39] LABS: BLOOD UREA NITROGEN 6 MG/DL (7-18); CALCIUM LEVEL 8.2 MG/DL (8.5-10.1); CARBON DIOXIDE LEVEL 24 MEQ/L (21-32); CHLORIDE LEVEL 107 MEQ/L (98-107); CREATININE FOR GFR 0.42 MG/DL (0.55-1.30); GLOMERULAR FILTRATION RATE > 60.0 (>51); GLUCOSE, FASTING 129 MG/DL (70-100); POTASSIUM SERUM 3.7 MEQ/L (3.5-5.1); SODIUM LEVEL 137 MEQ/L (136-145)
[2019-09-26 05:37] LABS: ABG BASE EXCESS -0.2 (-2.0-2.0); ABG HCO3 23.9 MEQ/L (22.0-26.0); ABG O2 SATURATION 97.8 % (95.0-99.0); ABG PARTIAL PRESSURE CO2 36.9 mmHg (35.0-45.0); ABG PARTIAL PRESSURE O2 94.4 mmHg (75.0-100.0); ABG STANDARD HCO3 24.4 MEQ/L (22.0-26.0); ABG TOTAL CO2 25.1 MEQ/L (22.0-29.0)
--- NOTE | 2019-09-26 08:09 | REP ---
Portable chest x-ray: Single view. History: Intubated patient. Comparison chest x-ray: September 25, 2019. Findings: Endotracheal tube is seen in good position 1.5 cm above the moriah. NG tube enters left upper quadrant. There are air bronchograms in both bases consistent with bibasilar areas of consolidation. No new infiltrate is seen. Electronically Signed by Salty Nelson MD 09/26/2019 08:00 A
[2019-09-26] MEDS: ENOXAPARIN 40MG/0.4ML SYRINGE (J1650 PER 10MG) SC SCH (08:28)
[2019-09-26] MEDS: CHLORHEXIDINE GLUCONATE 0.12 % 15ML UDC (PERIDEX ORAL RINSE) MT SCH (08:28)
[2019-09-26] MEDS: PANTOPRAZOLE 40MG VIAL (C9113 PER 1) IV SCH (08:28)
[2019-09-26] MEDS: GABAPENTIN 300 MG CAP NG SCH (08:28)
[2019-09-26] MEDS: AZITHROMYCIN INJ 500 MG, VIAL MATE ADAPTER 1 EACH in D5W 250 ML IV SCH (08:29)
[2019-09-26] MEDS ORDERED: methylPREDNISolone INJ 40 MG/1 ML VIAL (J2920) IV SCH (09:00)
[2019-09-26 09:23] LABS: ABG BASE EXCESS -0.3 (-2.0-2.0); ABG HCO3 23.2 MEQ/L (22.0-26.0); ABG PARTIAL PRESSURE CO2 33.8 mmHg (35.0-45.0); ABG PARTIAL PRESSURE O2 76.5 mmHg (75.0-100.0); ABG STANDARD HCO3 24.2 MEQ/L (22.0-26.0); ABG TOTAL CO2 24.3 MEQ/L (22.0-29.0); ABG pH (ARTERIAL) 7.455 UNITS (7.350-7.450)
[2019-09-26] MEDS: cefTRIAXone SOD 1 GM in D5W MINI-BAG PLUS 50 ML IV SCH ×2 (10:03→21:34)
[2019-09-26] MEDS: GABAPENTIN 300 MG CAP PO SCH ×3 (10:03→20:28)
[2019-09-26] MEDS: oxyCODONE 5MG TAB PO PRN ×2 (10:06→16:49)
[2019-09-26] MEDS: MORPHINE 30 MG SA TAB PO PRN ×2 (10:34→19:21)
--- NOTE | 2019-09-26 10:50 | CCN ---
DATE: 09/26/2019 Patient was seen and examined this morning during bedside rounds. Overnight, patient had complained of some chest discomfort mid sternally. She has had an EKG done as well as a cardiac enzymes. EKG did not show any concerning ST changes or T-wave inversions, and her cardiac enzymes were negative. This morning, patient is on the ventilator and on propofol for sedation, although she is awake, alert, and responsive and following commands appropriately and answering questions with nodding or shaking her head. She did receive fentanyl overnight for her chest pain with resolution. This morning, she states she only has some slight chest discomfort. Denies any abdominal pain. She has not any fevers overnight. Patient had a bronchoscopy performed yesterday, which she tolerated well. BAL cultures are still pending. PHYSICAL EXAM: Temperature 97.8, pulse 91, respirations 22, blood pressure 105/59, oxygen saturation 94% on 40% FiO2. Ins 3.4 liters, out 2.5 liters, net positive approximately 849 mL. General: Patient is intubated and sedated but is awake and alert and following commands appropriately. HEENT: Normocephalic, atraumatic. Pupils are small but reactive to light bilaterally. There are moist mucous membranes. Neck is supple. Trachea is midline. There is a dorsal nerve stimulator in her neck with the pack in the anterior left chest. Cardiovascular: Regular rate rhythm. Normal S1, S2. Unable to appreciate murmurs. Pulmonary: There are coarse ventilated breath sounds bilaterally with few crackles at the bases. No significant wheezing or rhonchi noted. Abdomen is soft, nontender, nondistended. No palpable mass. Extremities: There is no lower extremity noted bilaterally. LABS: WBC 25.9, hemoglobin 9.6, platelets of 316. Chemistry: Sodium is 137, potassium 3.7, chloride 407, bicarb 24, BUN 6, creatinine 0.42, glucose 129, calcium is 8.2, troponin negative, procalcitonin was 1.21. ABG: pH is 7.430, pCO2 of 36.9, pO2 of 94.4. BAL of right middle lobe 2850 WBC. BAL left upper lobe, 1250 WBCs MICRO: Blood cultures no growth to date. BAL cultures are pending. AFB smear negative and then IMAGING: Chest x-ray this morning shows endotracheal (ET) tube in good position. There is an orogastric (OG) tube coursing below the diaphragm. There is bibasilar consolidation with some air bronchograms noted and somewhat poor inspiratory effort. ASSESSMENT/PLAN: Ms. Colón is a 48-year-old female with a past medical history of osteoarthritis, trigeminal and occipital neuralgia status post dorsal nerve stimulator with history of chronic pain and opioid dependence, who presented with complaints of shortness of breath and respiratory distress. The patient was found to have acute hypoxemic respiratory failure on admission with a chest x- ray showing bilateral diffuse interstitial opacities. The patient was also febrile and in the ED and noted to have leukocytosis. She was thought to have sepsis possibly secondary to pneumonia and was given intravenous (IV) fluid boluses as well as broad spectrum antibiotics. The patient was also given steroids in the field and in the emergency department (ED), but continued to have severe respiratory distress and was intubated and placed on mechanical ventilation. Acute hypoxemic respiratory failure with sepsis, likely secondary to pneumonia. The patient does have a previous history however of episodes of hypoxia and CT findings of diffuse ground-glass opacities, predominantly in the upper lobes which usually improve with antibiotics and steroids. She has had two episodes with hospitalizations in the past year with some concern for possible pneumonitis or other interstitial lung disease. The patient has previously had connective tissue disease testing for connective tissue disease associated ILD, which were negative. Given her ongoing cigarette use, there is possibility of respiratory bronchiolitis or other interstitial pneumonitis. - The patient was given steroids and she did have significant improvement in her chest x-ray, particularly with the opacities more in the upper lobes. She does continue to have consolidation with some air bronchograms in the lower lobes and suspect she does have acute infectious process as well as her possible underlying inflammatory interstitial lung disease. - The patient's procalcitonin was elevated and her BAL did show elevated WBCs, although the cell counts are still pending. - Will continue her with antibiotics for pneumonia with ceftriaxone and azithromycin. We will increase the ceftriaxone to 1 gram q12h. - Will followup results of her BAL cultures as well as her Legionella and Mycoplasma for atypical infectious etiologies and de-escalate antibiotics accordingly. - Will continue to trend procalcitonin as well to help with de-escalation. - Continue with Solu-Medrol, will taper to 40 mg intravenous (IV) daily for an inflammatory pneumonitis. - The patient was placed on a weaning trial this morning while on the mechanical ventilator. She tolerated the weaning trial well. She did have some mild tachypnea, although she did also appear anxious. She was extubated to aerosolized oxygen supplementation at 50% FIO2. - Will continue to wean patient down on oxygen supplementation as tolerated to maintain an FIO2 above 90%. - Continue with nebulized bronchodilators as needed. Occipital neuralgia, status post trigeminal nerve release and formation of scar neuroma, which was excised, and status post dorsal column stimulator. - Will discontinue fentanyl now that patient is extubated and will restart her by mouth home medications of her chronic opioids for pain. - Will continue with gabapentin and Trileptal. Hyponatremia, was likely secondary to hypovolemia. The patient's hyponatremia has resolved. - Will continue to monitor her renal function and avoid nephrotoxins if possible. - Will repeat electrolytes as needed. Restless leg syndrome - will continue with ropinirole. Deep venous thrombosis (DVT) prophylaxis, Lovenox Gastrointestinal (GI) prophylaxis, pantoprazole. Will advance diet as tolerated. CODE STATUS: Full code. Total critical care time spent, not including procedures, approximately 50 minutes. MTDD
--- NOTE | 2019-09-26 13:13 | ECGEPIP ---
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
--- NOTE | 2019-09-26 13:27 | IPNPDOC ---
Date Seen The patient was seen on 09/26/19. Progress Note SUBJECTIVE: Patient was seen and examined today. Patient is being transferred to Hospitalist service from Pulmonary/Critical Care. The patients case was discussed with Pulmonary/Critical Care physician. Patient medical records were reviewed in full. At bed side the patient states she is feeling well although continued shortness of breath. It appears the etiology of her acute hypoxemic respiratory failure remains unclear however she has been steroid responsive. Currently she is continued on Solumedrol 40 mg IV. She denies any chest pain or worsening shortness of breath OBJECTIVE PHYSICAL EXAMINATION: VITAL SIGNS: Please see below. GENERAL: Awake, alert, and oriented. Appears in no acute distress. Lying in bed comfortably. High flow nasal cannula in place HEENT: Atraumatic, normocephalic. Eyes are nonicteric. Trachea is midline. dentures are not in place CARDIOVASCULAR: Normal S1, S2. Regular rate and rhythm. No clicks rubs or murmurs RESPIRATORY: Diminished breath sounds bilaterally. Slightly obscured by high flow nasal cannula. Good respiratory effort. No wheezes or rhonchi ABDOMINAL: Soft, nondistended. Nontender. Normoactive bowel sounds EXTREMITIES: No edema. Full and equal pulses in bilateral upper and lower extremities NEUROLOGICAL: No focal neurological deficits PSYCHOLOGICAL: Mood and affect appear appropriate LABORATORY DATA, IMAGING STUDIES, MICROBIOLOGY: Please see below. DVT prophylaxis ordered?: Lovenox ASSESSMENT AND PLAN: Patient is a 48 year old female who presented to [facility] with acute hypoxemic respiratory failure requiring intubation and mechanical intubation. She has since been extubated and transferred to Hospitalist Service for ongoing care PROBLEMS: 1. Acute on Chronic Hypoxemic Respiratory Failure -Patient has a history of hypoxic events. She has reported that she was not previously intubated. She has been having these occurrences for about 1 year now. This was the first incidence where she required intubation. She has receive d an extensive workup previously including an autoimmune workup. She has a history of bilateral upper lobe predominance ground glass opacities. This was thought previously to be associated with vaping however the patient has since stopped vaping. She is a smoker. She does not have any significant exposure histories. She is a smoker. -Given smoking history patients episodic hypoxia may be related ti Respiratory bronchiolitis associated interstitial lung disease RB-ILD. Additionally could by hypersensitivity pneumonitis however patients history does not appear to suggest that -Patient has been extubated today. Continue weaning down on supplemental oxygen. Currently remaining on Vapotherm -Continue emperic antibiotics with Rocephin. Will trend CRP and procalcitonin -Continue IV Solumedrol. Will transition to Prednisone tomorrow. Patient will need long taper of 40mg prednisone over 4-6 weeks. 2. Occipital Neuralgia -Continue patients home medications 3. Restless Leg Syndrom -Continue Ropinirole 4. GI prophylaxis -Protonix 5. DVT Prophylaxis -Lovenox DISPOSITION: Advance diet toady. Pending on patients clinical improvement may be transferred out of ICU VS, I&O, 24H, Fishbone Vital Signs/I&O Vital Signs Date Time Temp Pulse Resp B/P (MAP) Pulse Ox O2 Delivery O2 Flow Rate FiO2 09/26/19 12:00 98.3 88 32 117/64 (81) 94 HVNI-Vapotherm 25.0 50 I&O- Last 24 Hours up to 6 AM 09/26/19 06:00 Intake Total 1350.6 ml Output Total 1905 ml Balance -554.4 ml Laboratory Data 24H LABS Laboratory Tests 2 09/26/19 01:47: Total Creatine Kinase 45, Creatine Kinase MB < 1.0, Creatine Kinase MB Relative Index 2.22, Troponin I < 0.02 09/26/19 03:59: Immature Granulocyte % (Auto) 0.6, Neutrophils (%) (Auto) 91.4H, Lymphocytes (%) (Auto) 4.3L, Monocytes (%) (Auto) 3.5, Eosinophils (%) (Auto) 0.0, Basophils (%) (Auto) 0.2, Neutrophils # (Auto) 23.7H, Lymphocytes # (Auto) 1.1L, Monocytes # (Auto) 0.9H, Eosinophils # (Auto) 0.0, Basophils # (Auto) 0.0, Nucleated Red Blood Cells % (auto) 0.0, Anion Gap 6L, Glomerular Filtration Rate > 60.0, Calcium Level 8.2#L 09/26/19 05:14: Blood Gas Bicarbonate Standard 24.4, Arterial Blood pH 7.430, Arterial Blood Partial Pressure CO2 36.9, Arterial Blood Partial Pressure O2 94.4, Arterial Blood Total CO2 25.1, Arterial Blood HCO3 23.9, Arterial Blood Base Excess -0.2, Arterial Blood Oxygen Saturation 97.8 09/26/19 09:07: Blood Gas Bicarbonate Standard 24.2, Arterial Blood pH 7.455H, Arterial Blood Partial Pressure CO2 33.8L, Arterial Blood Partial Pressure O2 76.5, Arterial Blood Total CO2 24.3, Arterial Blood HCO3 23.2, Arterial Blood Base Excess -0.3, Arterial Blood Oxygen Saturation 96.0 CBC/BMP Laboratory Tests 09/26/19 03:59 Microbiology Microbiology 09/25/19 Acid Fast Stain - Final, Resulted 09/25/19 Mycobacterial Culture, Resulted Pending 09/25/19 Gram Stain - Final, Resulted 09/25/19 Bronchoalveolar Lavage Culture, Resulted Pending 09/25/19 Gram Stain - Final, Resulted 09/25/19 Bronchoalveolar Lavage Culture, Resulted Pending 09/25/19 Blood Culture - Preliminary, Resulted No growth after 24 hours . All specim... 09/24/19 Respiratory Virus Panel (PCR) (JAEL) - Final, Complete 09/24/19 Blood Culture - Preliminary, Resulted No growth after 24 hours . All specim... GME ATTESTATION GME ATTESTATION My faculty preceptor for this patient encounter was physically present during the encounter and was fully available. All aspects of the patient interview, examination, medical decision making process, and medical care plan development were reviewed and approved by the faculty preceptor. The faculty preceptor is aware and concurs with the plan as stated in the body of this note and will attest to such by his/her cosignature. ATTENDING NOTE Pt seen and examined by me. Agree with the above assessment and plan. NEYDA SUGGS DO Sep 26, 2019 13:27 GAMALIEL GARCÍA MD Sep 26, 2019 15:16
[2019-09-26] MEDS: OXcarbazepine 150 MG TAB PO SCH (20:27)
[2019-09-26] MEDS: rOPINIRole 1MG TAB PO SCH (20:28)
[2019-09-26] MEDS: CEPACOL LOZENGE PO PRN (20:29)
[2019-09-26] MEDS: PRAVASTATIN 20 MG TAB PO SCH (20:29)
[2019-09-27] VITALS (13 sets, daily range): BP systolic 111–134; BP diastolic 56–74; O2SAT 93–95
[2019-09-27] MEDS: IPRATROPIUM 0.5MG/ALBUTEROL 2.5MG INH SOL UD 3ML (DUONEB) NEB SCH ×6 (03:52→23:22)
[2019-09-27 04:21] LABS: BASO % 0.2 % (0.0-1.0); EOS # 0.1 10^3/uL (0.0-0.5); EOS % 0.3 % (0.0-3.0); HEMATOCRIT 29.3 % (36.0-47.0); HEMOGLOBIN 9.4 g/dl (12.0-15.5); LYMPH # 2.7 10^3/uL (1.5-5.0); LYMPH % 13.9 % (24.0-44.0); MEAN CORPUSCULAR HEMOGLOBIN 27.3 pg (27.0-33.0); MEAN CORPUSCULAR HGB CONC 32.1 g/dl (32.0-36.5); MEAN CORPUSCULAR VOLUME 85.2 fl (80.0-96.0); MONO # 0.7 10^3/uL (0.0-0.8); MONO % 3.8 % (0.0-5.0); NEUTROPHILS # 15.7 10^3/uL (1.5-8.5); NEUTROPHILS % 81.3 % (36.0-66.0); PLATELET COUNT, AUTOMATED 281 10^3/uL (150-450); RED BLOOD COUNT 3.44 10^6/uL (4.00-5.40); WHITE BLOOD COUNT 19.3 10^3/uL (4.0-10.0)
[2019-09-27 04:53] LABS: BLOOD UREA NITROGEN 10 MG/DL (7-18); CALCIUM LEVEL 7.7 MG/DL (8.5-10.1); CARBON DIOXIDE LEVEL 26 MEQ/L (21-32); CHLORIDE LEVEL 107 MEQ/L (98-107); GLOMERULAR FILTRATION RATE > 60.0 (>51); GLUCOSE, FASTING 85 MG/DL (70-100); SODIUM LEVEL 142 MEQ/L (136-145)
[2019-09-27] MEDS ORDERED: NS 1,000 ML IV SCH (05:00)
[2019-09-27] MEDS: guaiFENesin ER 600 MG TAB PO SCH ×2 (08:12→21:02)
[2019-09-27] MEDS: MORPHINE 30 MG SA TAB PO PRN ×2 (08:12→21:16)
[2019-09-27] MEDS: CEPACOL LOZENGE PO PRN (08:13)
[2019-09-27] MEDS: OXcarbazepine 150 MG TAB PO SCH ×2 (08:13→21:02)
[2019-09-27] MEDS: GABAPENTIN 300 MG CAP PO SCH (08:13)
[2019-09-27] MEDS: methylPREDNISolone INJ 40 MG/1 ML VIAL (J2920) IV SCH ×2 (08:13→21:01)
[2019-09-27] MEDS: ENOXAPARIN 40MG/0.4ML SYRINGE (J1650 PER 10MG) SC SCH (08:13)
[2019-09-27] MEDS: AZITHROMYCIN INJ 500 MG, VIAL MATE ADAPTER 1 EACH in D5W 250 ML IV SCH (08:14)
[2019-09-27] MEDS: PANTOPRAZOLE 40MG VIAL (C9113 PER 1) IV SCH (08:14)
--- NOTE | 2019-09-27 08:27 | REP ---
Portable chest x-ray: Single view. History: Hypoxia. Comparison chest x-ray September 26, 2019. Findings: Endotracheal tube has been withdrawn. A nasogastric tube has been withdrawn. Monitoring electrodes are seen along with oxygen delivery tubing. There are clips in right upper quadrant of the abdomen. Infiltrates persist in the bases bilaterally and the right upper lobe. Interstitial markings are diffusely somewhat prominent. No new infiltrate is seen. Electronically Signed by Salty Nelson MD 09/27/2019 08:16 A
[2019-09-27] MEDS ORDERED: guaiFENesin/CODEINE SYRUP 5 ML UDC PO PRN (08:45)
[2019-09-27 09:23] LABS: NT-PRO BNP 3034 PG/ML (<125)
[2019-09-27] MEDS: cefTRIAXone SOD 1 GM in D5W MINI-BAG PLUS 50 ML IV SCH ×2 (09:53→21:01)
[2019-09-27] MEDS ORDERED: FUROSEMIDE 40MG/4ML VIAL (J1940) IV ONE (11:00)
--- NOTE | 2019-09-27 11:30 | CCN ---
DATE: 09/27/2019 The patient was seen and examined this morning during bedside rounds. Overnight, the patient was noted to have increasing coughing episodes with some desaturation while coughing requiring increased FIO2 while on the Vapotherm. This morning, she states her dyspnea is unchanged but she does continue have increased cough which is productive of thick yellow sputum. She does feel that she has mucus in her chest that she is having some difficulty expectorating. The patient is also complaining of some hoarseness as well. She has not had any fevers or chills overnight. She does continue to have a headache, although she has these headaches chronically. She has not had any nausea and no abdominal pain. The patient was given cough suppressant overnight and also placed on intravenous (IV) fluids. PHYSICAL EXAM: Temperature 98, maximum temperature (Tmax) was 99.1, pulse 79, respirations 22, blood pressure 114/74, oxygen saturation 96% on 25 liters per minute at 50% FiO2. Ins 1.9 liters, out 1.8 liters. General: Patient is sitting in bed, does not appear to be any acute distress. Is able to speak in complete sentences, although does have some coughing intermittently. HEENT: Normocephalic, atraumatic. Pupils reactive to light bilaterally. Moist mucous membranes noted. Neck is supple. Trachea is midline. There is a dorsal root nerve stimulator in her neck with a pack in the anterior left chest. Cardiovascular: Regular rate and rhythm. Normal S1, S2. Unable to appreciate murmurs. Pulmonary: There is somewhat poor inspiratory effort with crackles bilaterally in the bases and occasional rhonchi and inspiratory wheeze. Abdomen is soft, nontender, nondistended. No palpable mass. Extremities: There is no lower extremity edema bilaterally. LABS: WBC 19.3, hemoglobin is 9.4, platelets are 281. Chemistry: Sodium is 142, potassium 4.0, chloride 107, bicarb 26, BUN 10, creatinine 0.40, glucose 85, calcium 7.7. BAL cultures are pending. AFB smear negative. BAL pathology pending. IMAGING: Chest x-ray this morning shows a poor inspiratory effort. There is improvement in the lower lobe opacities bilaterally, but there is slight improvement in the infiltrates in the bases bilaterally with some increased alveolar infiltrate the right upper lobe and mildly increased interstitial markings diffusely. ASSESSMENT AND PLAN: Ms. Colón is a 48-year-old female with past medical history of osteoarthritis, trigeminal and occipital neuralgias, status post dorsal nerve stimulator with history of chronic pain of opioid dependence, who presented with complaints of shortness of breath, cough, and acute hypoxemic respiratory failure. The patient was noted on imaging to have bilateral diffuse interstitial opacities as well as fever and leukocytosis. The patient was thought to have sepsis, possibly secondary to pneumonia and was treated with antibiotics. She was also intubated in the emergency department (ED) for her hypoxic respiratory failure and placed on mechanical ventilation. Yesterday, the patient was successfully extubated to high-flow nasal cannula oxygen supplementation with Vapotherm. Acute hypoxemic respiratory failure with sepsis likely secondary to pneumonia. The patient does have a previous history, however, of episodes of hypoxia and CT findings of diffuse ground-glass opacities, predominantly in the upper lobes which usually improve with antibiotics and steroids. She has had two episodes with hospitalization in the past year with some suspicion of pneumonitis or other interstitial lung disease. The patient was initially suspected of having an acute pneumonitis secondary to vaping, however, she has since quit vaping after her first episode and has continued to have these episodes. She is, however, still a current active to smoker, and given her ongoing cigarette use, there is potential of respiratory bronchiolitis as well as other inflammatory interstitial pneumonitis, as she does appear to respond to steroids. - The patient did have some improvement from her initial imaging with administration of steroids. She does continue to have bilateral lower lobe consolidations, however, and with her elevated procalcitonin and leukocytosis, there is still suspicion of an acute infectious process likely pneumonia as well as her underlying inflammatory interstitial lung disease. - The patient was noted to have worsening cough overnight as well as having some wheezing on exam today. We will therefore increase her Solu-Medrol from 40 mg intravenous (IV) daily to 40 mg IV twice a day. She will likely need a long taper prednisone; however, will continue with IV Solu-Medrol for today and continue to monitor her symptoms. - The patient does have cough productive of yellow sputum which she states it is somewhat difficult to expectorate. Will give an Acapella device as well as start her on Mucinex to help with pulmonary toilet. Will also give her guaifenesin with codeine for a nighttime cough suppressant to help with her coughing at nighttime in particular. - The patient does also have crackles on exam, and chest x-ray shows somewhat of a poor inspiratory effort. I will add an incentive spirometer. There is also some mildly increased diffuse interstitial markings, and she was started on IV fluids yesterday. Will recheck a BNP and, if elevated, will give her a dose of Lasix as well. Will discontinue IV fluids for now. - Will continue with antibiotics with ceftriaxone and azithromycin and will continue trend procalcitonin to plumber's helper in de-escalation. - Will followup the results of her BAL culture as well as her as well as antibodies for atypical infectious etiologies. - Will continue with Vapotherm for oxygen supplementation and continue to wean her down as tolerated to maintain oxygen saturation above 90%. - Will continue nebulized bronchodilators. Occipital neuralgia status post trigeminal nerve release and formation of scar neuroma, which was excised and is status post dorsal column stimulator. - The patient is on chronic opioids for pain which we will continue her home medications. She is also on gabapentin high dose and Trileptal. Will increase her gabapentin to her home dose, which may also help with some of her cough. Restless leg syndrome - will continue with ropinirole. Deep venous thrombosis (DVT) prophylaxis. Lovenox. Gastrointestinal (GI) prophylaxis. Pantoprazole. CODE STATUS: FULL CODE. Total critical care time spent, not including proceed procedures, approximately 35 minutes.
--- NOTE | 2019-09-27 13:51 | IPNPDOC ---
Date Seen The patient was seen on 09/27/19. Progress Note SUBJECTIVE: Patient noted to be comfortable in bed today. States that she feels "so so." Has some SOB that was unchanged from yesterday with reported cough overnight. Still on vapotherm OBJECTIVE PHYSICAL EXAMINATION: VITAL SIGNS: Please see below. General: Alert, generalized weakness Eyes: Normal sclera, EOMI HENT: Atraumatic Cardiovascular: Normal rate Pulmonary: Decrease breath sounds b/l, weak inspiration, minimal crackles in bases with wheezing. GI: Soft, nontender, nondistended Skin: Warm and dry Neuro: CN grossly intact. No focal deficits. generalized weakness Psych: oriented x 3 LABORATORY DATA, IMAGING STUDIES, MICROBIOLOGY: Please see below. DVT prophylaxis ordered?: Lovenox ASSESSMENT AND PLAN: 1. Acute on chronic respiratory failure - Suspect PNA in setting of underlying interstitial lung disease vs. hypersensitivity pneumonitis. CT findings with diffuse ground glass opacities with upper lobe predominence. Has a history of vaping and currently smoking. - s/p intubation now in ICU on vapotherm. - Responsive to steroids. IV solumedrol titrated up today from 40 mg IV daily to BID given worsen respiratory status overnight. - c/w empiric abx rocephin and azithromycin. Incentive spirometry. 2. RLS - c/w Ropinirole 3. Occipital neuralgia - s/p dorsal column stimulator. c/w home meds trileptal and gabapentin. PPX: Lovenox and Protonix. Code status: full code VS, I&O, 24H, Fishbone Vital Signs/I&O Vital Signs Date Time Temp Pulse Resp B/P (MAP) Pulse Ox O2 Delivery O2 Flow Rate FiO2 09/27/19 12:00 98.7 64 26 116/64 (81) 97 HVNI-Vapotherm 25.0 40 I&O- Last 24 Hours up to 6 AM 09/27/19 06:00 Intake Total 1855 ml Output Total 1372 ml Balance 483 ml Laboratory Data 24H LABS Laboratory Tests 2 09/27/19 03:48: Immature Granulocyte % (Auto) 0.5, Neutrophils (%) (Auto) 81.3H, Lymphocytes (%) (Auto) 13.9L, Monocytes (%) (Auto) 3.8, Eosinophils (%) (Auto) 0.3, Basophils (%) (Auto) 0.2, Neutrophils # (Auto) 15.7H, Lymphocytes # (Auto) 2.7, Monocytes # (Auto) 0.7, Eosinophils # (Auto) 0.1, Basophils # (Auto) 0.0, Nucleated Red Blood Cells % (auto) 0.0, Anion Gap 9, Glomerular Filtration Rate > 60.0, Calcium Level 7.7L, [id number]-Nzk-[id number]-Type Natriuretic Peptide 3034H CBC/BMP Laboratory Tests 09/27/19 03:48 Microbiology Microbiology 09/25/19 Acid Fast Stain - Final, Resulted 09/25/19 Mycobacterial Culture, Resulted Pending 09/25/19 Gram Stain - Final, Complete 09/25/19 Bronchoalveolar Lavage Culture - Final, Complete 09/25/19 Gram Stain - Final, Complete 09/25/19 Bronchoalveolar Lavage Culture - Final, Complete 09/25/19 Blood Culture - Preliminary, Resulted No Growth after 48 hours. All Specime... 09/24/19 Respiratory Virus Panel (PCR) (JAEL) - Final, Complete 09/24/19 Blood Culture - Preliminary, Resulted No Growth after 48 hours. All Specime... MATTY FULLER MD Sep 27, 2019 13:51
[2019-09-27] MEDS: GABAPENTIN 400 MG CAP PO SCH ×2 (15:55→21:02)
[2019-09-27] MEDS: oxyCODONE 5MG TAB PO PRN (15:56)
[2019-09-27] MEDS: PRAVASTATIN 20 MG TAB PO SCH (21:02)
[2019-09-27] MEDS: rOPINIRole 1MG TAB PO SCH (21:02)
[2019-09-28] VITALS (15 sets, daily range): BP systolic 114–146; BP diastolic 59–77; O2SAT 92–100
[2019-09-28] MEDS: IPRATROPIUM 0.5MG/ALBUTEROL 2.5MG INH SOL UD 3ML (DUONEB) NEB SCH ×5 (04:02→20:08)
[2019-09-28 05:21] LABS: BASO % 0.2 % (0.0-1.0); EOS % 0.1 % (0.0-3.0); HEMATOCRIT 32.5 % (36.0-47.0); HEMOGLOBIN 10.5 g/dl (12.0-15.5); LYMPH # 1.8 10^3/uL (1.5-5.0); LYMPH % 16.1 % (24.0-44.0); MEAN CORPUSCULAR HEMOGLOBIN 27.3 pg (27.0-33.0); MEAN CORPUSCULAR HGB CONC 32.3 g/dl (32.0-36.5); MEAN CORPUSCULAR VOLUME 84.6 fl (80.0-96.0); MONO # 0.4 10^3/uL (0.0-0.8); MONO % 3.8 % (0.0-5.0); NEUTROPHILS # 8.8 10^3/uL (1.5-8.5); NEUTROPHILS % 79.1 % (36.0-66.0); PLATELET COUNT, AUTOMATED 305 10^3/uL (150-450); RED BLOOD COUNT 3.84 10^6/uL (4.00-5.40); WHITE BLOOD COUNT 11.2 10^3/uL (4.0-10.0)
[2019-09-28 05:41] LABS: BLOOD UREA NITROGEN 11 MG/DL (7-18); CALCIUM LEVEL 8.4 MG/DL (8.5-10.1); CARBON DIOXIDE LEVEL 28 MEQ/L (21-32); CHLORIDE LEVEL 103 MEQ/L (98-107); CREATININE FOR GFR 0.39 MG/DL (0.55-1.30); GLOMERULAR FILTRATION RATE > 60.0 (>51); GLUCOSE, FASTING 105 MG/DL (70-100); SODIUM LEVEL 135 MEQ/L (136-145)
[2019-09-28] MEDS: AZITHROMYCIN 250MG TABLET PO SCH (08:33)
[2019-09-28] MEDS: GABAPENTIN 400 MG CAP PO SCH ×3 (08:33→20:50)
[2019-09-28] MEDS: OXcarbazepine 150 MG TAB PO SCH ×2 (08:33→20:50)
[2019-09-28] MEDS: ENOXAPARIN 40MG/0.4ML SYRINGE (J1650 PER 10MG) SC SCH (08:33)
[2019-09-28] MEDS: PANTOPRAZOLE 40MG VIAL (C9113 PER 1) IV SCH (08:33)
[2019-09-28] MEDS: guaiFENesin ER 600 MG TAB PO SCH ×2 (08:33→20:49)
[2019-09-28] MEDS: methylPREDNISolone INJ 40 MG/1 ML VIAL (J2920) IV SCH ×2 (08:34→20:50)
[2019-09-28] MEDS: cefTRIAXone SOD 1 GM in D5W MINI-BAG PLUS 50 ML IV SCH ×2 (10:01→20:49)
[2019-09-28] MEDS ORDERED: FUROSEMIDE 40MG/4ML VIAL (J1940) IV ONE (10:15)
[2019-09-28 13:59] LABS: MONOCYTES/MACROPHAGES, BAL 35 %
[2019-09-28 14:01] LABS: MONOCYTES/MACROPHAGES, BAL 25 %
[2019-09-28] MEDS: oxyCODONE 5MG TAB PO PRN (15:56)
--- NOTE | 2019-09-28 17:27 | IPNPDOC ---
Date Seen The patient was seen on 09/28/19. Progress Note SUBJECTIVE: Patient was seen and examined this morning. She is currently being weaned off of high-flow nasal cannula. She denies any new complaints this morning. Smoking cessation has been discussed with the patient who states that she has no plans on quitting. She states that she does not feel any worsening of her shortness of breath OBJECTIVE PHYSICAL EXAMINATION: VITAL SIGNS: Please see below. GENERAL: Awake, alert, and oriented. Appears in no acute distress. Lying in bed comfortably. High flow nasal cannula in place HEENT: Atraumatic, normocephalic. Eyes are nonicteric. Trachea is midline CARDIOVASCULAR: Normal S1, S2. Regular rate and rhythm. No clicks rubs or murmurs RESPIRATORY: Diminished breath sounds bilaterally. Slightly obscured by high flow nasal cannula. Good respiratory effort. Slight scattered wheezing ABDOMINAL: Soft, nondistended. Nontender. Normoactive bowel sounds EXTREMITIES: No edema. Full and equal pulses in bilateral upper and lower extremities NEUROLOGICAL: No focal neurological deficits PSYCHOLOGICAL: Mood and affect appear appropriate LABORATORY DATA, IMAGING STUDIES, MICROBIOLOGY: Please see below. DVT prophylaxis ordered?: Lovenox ASSESSMENT AND PLAN: Patient is a 48 year old female who presented to [facility] with acute hypoxemic respiratory failure requiring intubation and mechanical intubation. She has since been extubated and transferred to Hospitalist Service for ongoing care PROBLEMS: 1. Acute on Chronic Hypoxemic Respiratory Failure -Patient is continuing to be weaned down from vapotherm. -Continue empiric antibiotics with Rocephin. -Patient continues to have wheezing. Currently she remains on Solumedrol 40 mg IV BID. Will decrease tomorrow -Pulmonary Medicine following. 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 Additionally could by hypersensitivity pneumonitis however patients history does not appear to suggest that. She has been counseled on smoking cessation but has stated that she will not quit 2. Smoking/tobacco abuse -Patient was counseled extensively today on smoking cessation therapy. She has stated that she has no wish to quit smoking. It has been made clear to the patient that her recurrent hospitalizations are likely related to her smoking and may result in continued future hospitalization and intubation. She has voiced understanding and stated that she will not quit 3. Occipital Neuralgia -Gabapentin, Trileptal 4. Fibromyalgia -MS contin, Roxicodone 5. HLD -Pravastatin 6. Restless Leg Syndrome -Continue Ropinirole 7. GI prophylaxis -Protonix 8. DVT Prophylaxis -Lovenox VS, I&O, 24H, Fishbone Vital Signs/I&O Vital Signs Date Time Temp Pulse Resp B/P (MAP) Pulse Ox O2 Delivery O2 Flow Rate FiO2 09/28/19 16:00 3.0 09/28/19 15:56 18 09/28/19 12:00 97.5 75 131/68 (89) 98 Nasal Cannula 09/28/19 08:00 35 I&O- Last 24 Hours up to 6 AM 09/28/19 06:00 Intake Total 1050 ml Output Total 2375 ml Balance -1325 ml Laboratory Data 24H LABS Laboratory Tests 2 09/28/19 04:57: Immature Granulocyte % (Auto) 0.7, Neutrophils (%) (Auto) 79.1H, Lymphocytes (%) (Auto) 16.1L, Monocytes (%) (Auto) 3.8, Eosinophils (%) (Auto) 0.1, Basophils (%) (Auto) 0.2, Neutrophils # (Auto) 8.8H, Lymphocytes # (Auto) 1.8, Monocytes # (Auto) 0.4, Eosinophils # (Auto) 0.0, Basophils # (Auto) 0.0, Nucleated Red Blood Cells % (auto) 0.0, Anion Gap 4L, Glomerular Filtration Rate > 60.0, Calcium Level 8.4L CBC/BMP Laboratory Tests 09/28/19 04:57 Microbiology Microbiology 09/25/19 Acid Fast Stain - Final, Resulted 09/25/19 Mycobacterial Culture, Resulted Pending 09/25/19 Gram Stain - Final, Complete 09/25/19 Bronchoalveolar Lavage Culture - Final, Complete 09/25/19 Gram Stain - Final, Complete 09/25/19 Bronchoalveolar Lavage Culture - Final, Complete 09/25/19 Blood Culture - Preliminary, Resulted No Growth after 72 hours. All specime... 09/24/19 Respiratory Virus Panel (PCR) (JAEL) - Final, Complete 09/24/19 Blood Culture - Preliminary, Resulted No Growth after 72 hours. All specime... GME ATTESTATION ATTENDING NOTE I have personally evaluated and examined the patient. Discussed with resident/student regarding plan of care and agree with the above assessment and plan. Patient was weaned off of vapotherm this afternoon, saturating well. Still coughs but reports improvement from yesterday. NEYDA SUGGS DO Sep 28, 2019 17:27 MATTY FULLER MD Sep 28, 2019 17:55
[2019-09-28] MEDS: MORPHINE 30 MG SA TAB PO PRN (17:52)
--- NOTE | 2019-09-28 19:46 | CCN ---
DATE: 09/28/2019 CRITICAL CARE PROGRESS NOTE The patient was seen and examined this morning during bedside rounds. Yesterday the patient was given a dose of Lasix 40 mg IV and did have adequate diuresis. She was able to be weaned down on her oxygen supplementation on t he Vapotherm, and she did notice some improvement in her shortness of breath as well as in her cough. She does continue to have some chest heaviness and shortness of breath, particularly with exertion, as well as continued cough, although it has improved somewhat. She states she has not been having as much mucus production as she was previously. Patient has not had any fevers or chills. No abdominal pain. No nausea. She denies any increased lower extremity edema. PHYSICAL EXAM: Temperature is 97.7, pulse is 72, respirations 20, blood pressure 127/73, oxygen saturation (O2 sat) 95% on 25 liters a minute at 35% FiO2. Intake 1.1 liters, output 2.1 liters, net negative 1 liter. General: The patient is sitting in bed, does not appear to be in acute distress and is able to speak in complete sentences with somewhat less coughing noted today during exam. HEENT: Normocephalic, atraumatic. Pupils are reactive to light bilaterally. Moist mucous membranes are noted. Neck: Supple. Trachea is midline. There is a dorsal nerve stimulator in her neck with the pack in the anterior chest. Cardiovascular: Regular rate and rhythm. Normal S1, S2, unable to appreciate murmurs. Pulmonary: There are mild crackles bilaterally at the bases and occasional wheeze as well. Abdomen: Soft, nontender, nondistended. No palpable mass. Extremities: There is no lower extremity edema bilaterally. LABORATORY: WBC 11.2, hemoglobin 10.5, platelets 305. Chemistry: Sodium is 135, potassium 4.0, chloride is 103, bicarbonate 28, BUN 11, creatinine 0.39, glucose is 105. BNP increased yesterday to 3034. Microbiology: BAL cultures were negative. Fungal culture is pending. AFB smear negative. ASSESSMENT AND PLAN: Ms. Colón is a 48-year-old female with a history of osteoarthritis, trigeminal occipital neuralgia, status post dorsal nerve stimulator with a history of chronic pain and opioid dependence who presented initially with complaints of fever, shortness of breath and cough. The patient was noted to have acute on chronic hypoxemic respiratory failure and chest x-ray had shown bilateral diffuse interstitial opacities. The patient was initially treated for sepsis with possible pneumonia with broad-spectrum antibiotics. Given her acute on chronic hypoxemic respiratory failure, however, she was also intubated and required mechanical ventilation. The patient has since been extubated and was weaned down to Vapotherm, oxygen supplementation. Acute on chronic hypoxemic respiratory failure with sepsis, likely secondary to pneumonia. The patient also has previous history, however, of episodes where she has acute worsening of hypoxia as well as imaging findings showing diffuse ground glass opacities that usually improve with antibiotics and steroids. The patient was given IV steroids on this admission and did have some initial improvement in her imaging. However, did have persistent bilateral lower lobe consolidation and with an elevated procalcitonin and leukocytosis, likely did have an acute infectious process on top of her underlying inflammatory interstitial lung disease. - Patient does have a history of smoking, and her interstitial lung disease may potentially be secondary to respiratory bronchiolitis or other steroid responsive inflammatory interstitial lung disease, such as a hypersensitivity pneumonitis. - She was increased to Solu-Medrol 40 mg IV twice a day, which we will continue for today and then can likely taper her to prednisone at 60 mg daily with a prolonged slow taper over the next few weeks. - Patient was also noted to have elevated BNP yesterday compared to her initial. She was also noted to have increased crackles and more cough and mucus. She was given Lasix with diuresis with improvement in her oxygenation as well as in her cough. Will give an additional IV Lasix 40 mg today and continue to monitor her intake and output. - Will wean patient down off of Vapotherm to nasal cannula oxygen supplementation. At home, she is chronically on 4 to 4-1/2 liters a minute as per the patient. - Will continue with Mucinex and Acapella device for pulmonary toilet, as well as incentive spirometer. - Patient can have guaifenesin with codeine as needed at night for cough suppressant. - Can continue with antibiotics with ceftriaxone and azithromycin. Will repeat a procalcitonin tomorrow to aid in de-escalation of antibiotics, likely to oral, if her procalcitonin is improving. - Patient's BAL was negative for bacterial organisms. Her fungal culture is still pending. Her cytology was also negative for PCP. 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 She will likely need repeat imaging to followup resolution of the opacities, as well as possible surgical lung biopsy in the future for her interstitial lung disease. Deep vein thrombosis (DVT) prophylaxis: Lovenox. Gastrointestinal (GI) prophylaxis: Pantoprazole. Code Status: FULL CODE. Total critical care time spent not including any procedures: Approximately 35 minutes. Please do not hesitate to call for any further questions or concerns.
[2019-09-28] MEDS: rOPINIRole 1MG TAB PO SCH (20:49)
[2019-09-28] MEDS: FLUoxetine 20 MG CAP PO SCH (20:49)
[2019-09-28] MEDS: PRAVASTATIN 20 MG TAB PO SCH (20:49)
[2019-09-29] VITALS (8 sets, daily range): BP systolic 112–134; BP diastolic 59–65; O2SAT 95–99
[2019-09-29] MEDS: IPRATROPIUM 0.5MG/ALBUTEROL 2.5MG INH SOL UD 3ML (DUONEB) NEB SCH ×4 (00:32→11:01)
[2019-09-29 05:33] LABS: BASO % 0.3 % (0.0-1.0); EOS % 0.2 % (0.0-3.0); HEMATOCRIT 32.8 % (36.0-47.0); HEMOGLOBIN 10.4 g/dl (12.0-15.5); LYMPH # 2.3 10^3/uL (1.5-5.0); LYMPH % 18.5 % (24.0-44.0); MEAN CORPUSCULAR HEMOGLOBIN 26.9 pg (27.0-33.0); MEAN CORPUSCULAR HGB CONC 31.7 g/dl (32.0-36.5); MEAN CORPUSCULAR VOLUME 84.8 fl (80.0-96.0); MONO # 0.8 10^3/uL (0.0-0.8); MONO % 6.2 % (0.0-5.0); NEUTROPHILS # 9.1 10^3/uL (1.5-8.5); NEUTROPHILS % 73.5 % (36.0-66.0); PLATELET COUNT, AUTOMATED 314 10^3/uL (150-450); RED BLOOD COUNT 3.87 10^6/uL (4.00-5.40); WHITE BLOOD COUNT 12.4 10^3/uL (4.0-10.0)
[2019-09-29 05:52] LABS: BLOOD UREA NITROGEN 13 MG/DL (7-18); CALCIUM LEVEL 8.7 MG/DL (8.5-10.1); CARBON DIOXIDE LEVEL 30 MEQ/L (21-32); CHLORIDE LEVEL 101 MEQ/L (98-107); CREATININE FOR GFR 0.47 MG/DL (0.55-1.30); GLOMERULAR FILTRATION RATE > 60.0 (>51); GLUCOSE, FASTING 101 MG/DL (70-100); POTASSIUM SERUM 3.9 MEQ/L (3.5-5.1); SODIUM LEVEL 136 MEQ/L (136-145)
[2019-09-29] MEDS: ENOXAPARIN 40MG/0.4ML SYRINGE (J1650 PER 10MG) SC SCH (08:28)
[2019-09-29] MEDS: GABAPENTIN 400 MG CAP PO SCH (08:29)
[2019-09-29] MEDS: PANTOPRAZOLE 40MG VIAL (C9113 PER 1) IV SCH (08:29)
[2019-09-29] MEDS: OXcarbazepine 150 MG TAB PO SCH (08:29)
[2019-09-29] MEDS: methylPREDNISolone INJ 40 MG/1 ML VIAL (J2920) IV SCH (08:29)
[2019-09-29] MEDS: AZITHROMYCIN 250MG TABLET PO SCH (08:29)
[2019-09-29] MEDS: FLUoxetine 20 MG CAP PO SCH (08:31)
[2019-09-29] MEDS: MORPHINE 30 MG SA TAB PO PRN (08:31)
[2019-09-29] MEDS: guaiFENesin ER 600 MG TAB PO SCH (08:31)
[2019-09-29] MEDS: cefTRIAXone SOD 1 GM in D5W MINI-BAG PLUS 50 ML IV SCH (10:42)
[2019-09-29] MEDS ORDERED: CEFD1CAP8 PO (11:07)
[2019-09-29] MEDS ORDERED: AZIT-12 PO (11:07)
[2019-09-29] MEDS ORDERED: PRED10TA2 PO (11:07)
[2019-09-29] MEDS ORDERED: ALBU83IN NEB (12:09)
[2019-09-29] MEDS ORDERED: PROAAER10 INH (12:10)
--- NOTE | 2019-09-29 16:14 | DS.PDOC ---
Discharge Summary General Date of Admission Sep 25, 2019 at 00:48 Date of Discharge 09/29/19 Attending Physician: MATTY FULLER MD Specialist/Consultants Involve: DAVON TAN MD Discharge Summary PROCEDURES PERFORMED DURING STAY: Endotracheal Intubation; Flexible Bronchoscopy ADMITTING DIAGNOSES: 1. Acute Hypoxemic Respiratory Failure w/ sepsis likely 2/2 respiratory infection vs interstitial lung disease DISCHARGE DIAGNOSES: 1.Acute Hypoxemic Respiratory Failure w/ sepsis likely 2/2 respiratory infection vs interstitial lung disease COMPLICATIONS/CHIEF COMPLAINT: Acute Resp Failure W Hypoxia. HISTORY OF PRESENT ILLNESS: Patient is a 48 year old female with a past medical history significant for chronic hypoxic respiratory failure on 3L nasal cannula, hypertension, trigeminal and occipital neuralgia, osteoarthritis, insomnia, restless leg syndrome, and chronic pain, and opioid use who presented to [facility] with shortness of breath. She was found to be in respiratory distress and to have acute hypoxemic respiratory failure. Her chest x-ray at the time demonstrated diffuse interstitial opacities. She was febrile at the time and noted to have a leukocytosis. She was started on broad spectrum antibiotics and IVF for suspected sepsis. She continued to have worsening respiratory distress and was subsequently intubated and placed on mechanical ventilation. The patient was admitted to Pulmonary/Critical Care Service HOSPITAL COURSE: During the course of her hospitalization she was continued on empiric antibiotics for a possible pneumonia as well as IV steroids. She did appear to be improving. A flexible bronchoscopy was performed to evaluate the patients airway. On bronchoscopy her trachea was nromal, moriah was sharp, there was no endobronchial lesions noted and only scant mucoid secretions noted. Bronchial anatomy appeared normal in the right and left lung. There was some mucosal nodularity in the left upper lobe and lingula. A bronchoalveolar lavage was performed of right middle lobe and left lingula. The patient was extubated on her second day of hospitalization and was continued on high flow nasal cannula, antibiotics, and steroids. A more thorough history was obtained from the patient after extubation. The patient had been camping with her when she started developing shortness of breath. She stated that this worsened over the next 2 days and she developed a cough as well which prompted her to call EMS as she has a history of similar episodes in the past. According to the patient she does have history of episodes of hypoxia. CT findings previously had demonstrated diffuse ground glass opacities, predominately in the upper lobes which normally improves with antibiotics and steroids. In the past year the patient was noted to have been hospitalized two times for possible pneumonitis or other interstitial lung disease. During those hospitalizations she did receive an autoimmune workup specifically for connective tissue disease associated interstitial lung disease which was unrevealing. This hospitalization was the first time in which she required intubation. Her medications have been reviewed as well as exposure histories. The only consistent exposure is her cigarette smoking. She is a long time smoker. Her first episode of hypoxia occurred about a year ago. At the time she was vaping and it was felt that her hypoxia was related to a vaping associated lung injury. She stated that she had not vaped since that first episode however she continues to smoke. 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 She is steroid responsive and improved with IV steroids. At the end of her hospitalization she was weaned to 3L nasal cannula which is her baseline. She was discharged on a 6 week taper of prednisone with instructions to follow-up with her PCP and Pulmonary Medicine. She was counseled on smoking cessation extensively however has declined. She has stated that she had no intention to quit smoking at this time DISCHARGE MEDICATIONS: Please see below. ALLERGIES: Please see below. PHYSICAL EXAMINATION ON DISCHARGE: VITAL SIGNS: Please see below. GENERAL: Awake, alert, and oriented. Appears in no acute distress. Lying in bed comfortably. High flow nasal cannula in place HEENT: Atraumatic, normocephalic. Eyes are nonicteric. Trachea is midline CARDIOVASCULAR: Normal S1, S2. Regular rate and rhythm. No clicks rubs or murmurs RESPIRATORY: Improved breath sounds. Clear Vesicular breath sounds bilaterally. Good respiratory effort. Slight scattered wheezing ABDOMINAL: Soft, nondistended. Nontender. Normoactive bowel sounds EXTREMITIES: No edema. Full and equal pulses in bilateral upper and lower extremities NEUROLOGICAL: No focal neurological deficits PSYCHOLOGICAL: Mood and affect appear appropriate LABORATORY DATA: Please see below. IMAGING: Portable chest x-ray: Single view. History: Chest pain. Comparison study: February 05, 2019. Findings: A nerve stimulator power plant projects in the left supraclavicular soft tissues. Monitoring electrodes are seen. The lungs are under aerated and there is diffuse interstitial lung disease consistent with advanced interstitial edema. This is new when compared with the February 05, 2019 study. No pleural effusion is seen. Heart is not felt to be enlarged. Electronically Signed by Salty Nelson MD 09/25/2019 07:57 A PORTABLE CHEST X-RAY: Single view. 11:46 p.m. film. HISTORY: Evaluate endotracheal tube. Comparison chest x-ray 10:59 p.m. on 09/24/2019. FINDINGS: Endotracheal tube has been passed into good position just above the level of the transverse aorta. An NG tube enters left upper quadrant. Monitoring electrodes are seen. A neurostimulator power plant projects in the left supraclavicular and subclavicular region. Diffuse interstitial lung disease is again noted consistent with advanced interstitial edema. This appears more prominent than on the earlier film although this difference may be partially technique. There is bilateral hilar fullness. Heart size is borderline. IMPRESSION: Severe diffuse bilateral interstitial lung disease most consistent with diffuse interstitial edema. Bilateral hilar fullness. Endotracheal and nasogastric tubes in good position. Electronically Signed by Salty Nelson MD 09/25/2019 12:45 P REASON: Followup. The endotracheal tube is again seen in satisfactory position. The nasogastric tube is unchanged with the tip of the tube being in the stomach's antral region. Bilateral airspace opacities are again noted slightly improved. No new abnormal opacities are evident. The pleural angles are unchanged. The technique utilized in obtaining the radiograph has magnified the cardiac silhouette and accentuated the interstitial markings. There is no change in the osseous structures. Battery and hardware from stimulator device status quo. IMPRESSION: There is evidence of slight improvement. Electronically Signed by Gene Hamm DO 09/25/2019 01:45 P Portable chest x-ray: Single view. History: Intubated patient. Comparison chest x-ray: September 25, 2019. Findings: Endotracheal tube is seen in good position 1.5 cm above the moriah. NG tube enters left upper quadrant. There are air bronchograms in both bases consistent with bibasilar areas of consolidation. No new infiltrate is seen. Electronically Signed by Salty Nelson MD 09/26/2019 08:00 A Portable chest x-ray: Single view. History: Hypoxia. Comparison chest x-ray September 26, 2019. Findings: Endotracheal tube has been withdrawn. A nasogastric tube has been withdrawn. Monitoring electrodes are seen along with oxygen delivery tubing. There are clips in right upper quadrant of the abdomen. Infiltrates persist in the bases bilaterally and the right upper lobe. Interstitial markings are diffusely somewhat prominent. No new infiltrate is seen. Electronically Signed by Salty Nelson MD 09/27/2019 08:16 A PROGNOSIS: Fair ACTIVITY: [As tolerated]. DIET: As tolerated DISCHARGE PLAN: Patient is to be discharged home. She is to continue steroid taper over 6 weeks as prescribed. She is to finish course of antibiotics. She is to continue her previous home medications. Patient was advised to abstain from cigarette smoking. She is to follow-up with her PCP in 7-10 days. She is to follow-up with Pulmonary/Critical Care Medicine in 2-3 weeks DISPOSITION: 01 Home, Self-Care. DISCHARGE CONDITION: [Stable]. TIME SPENT ON DISCHARGE: 42 minutes. I have personally evaluated and examined the patient. Discussed with resident/student regarding plan of care and agree with the above assessment and plan. Vital Signs/I&Os Vital Signs Date Time Temp Pulse Resp B/P (MAP) Pulse Ox O2 Delivery O2 Flow Rate FiO2 09/29/19 08:31 16 09/29/19 08:00 3.0 09/29/19 08:00 97.5 84 134/65 (88) 99 Nasal Cannula 09/28/19 08:00 35 I&O- Last 24 Hours up to 6 AM 09/29/19 06:00 Intake Total 470 ml Output Total 1300 ml Balance -830 ml Laboratory Data Labs 24H Laboratory Tests 2 09/29/19 04:56: Immature Granulocyte % (Auto) 1.3, Neutrophils (%) (Auto) 73.5H, Lymphocytes (%) (Auto) 18.5L, Monocytes (%) (Auto) 6.2H, Eosinophils (%) (Auto) 0.2, Basophils (%) (Auto) 0.3, Neutrophils # (Auto) 9.1H, Lymphocytes # (Auto) 2.3, Monocytes # (Auto) 0.8, Eosinophils # (Auto) 0.0, Basophils # (Auto) 0.0, Nucleated Red Blood Cells % (auto) 0.0, Anion Gap 5L, Glomerular Filtration Rate > 60.0, Calcium Level 8.7 CBC/BMP Laboratory Tests 09/29/19 04:56 Microbiology Microbiology 09/25/19 Acid Fast Stain - Final, Resulted 09/25/19 Mycobacterial Culture, Resulted Pending 09/25/19 Gram Stain - Final, Complete 09/25/19 Bronchoalveolar Lavage Culture - Final, Complete 09/25/19 Gram Stain - Final, Complete 09/25/19 Bronchoalveolar Lavage Culture - Final, Complete 09/25/19 Blood Culture - Preliminary, Resulted No Growth after 72 hours. All specime... 09/24/19 Respiratory Virus Panel (PCR) (JAEL) - Final, Complete 09/24/19 Blood Culture - Preliminary, Resulted No Growth after 72 hours. All specime... Discharge Medications Scheduled Amlodipine Besylate (Amlodipine Besylate) 5 Mg Tablet, 5 MG PO DAILY, (Reported) Azithromycin (Azithromycin) 250 Mg Tablet, 500 MG PO DAILY Biotin (Biotin) 2,500 Mcg Capsule, 2,500 MCG PO DAILY, (Reported) Cefdinir (Cefdinir) 300 Mg Capsule, 1 CAP PO BID Cyanocobalamin (Vitamin B-12) (Vitamin B-12) 1,000 Mcg Tablet, 1,000 MCG PO DAILY, (Reported) Ergocalciferol (Vitamin D2) (Vitamin D2) 50,000 Units Cap, 50,000 UNITS PO 1XWK, (Reported) SATURDAY Fluoxetine Hcl (Fluoxetine HCl) 20 Mg Capsule, 20 MG PO BID, (Reported) Gabapentin (Gabapentin) 600 Mg Tablet, 1,200 MG PO TID, (Reported) Oxcarbazepine (Oxcarbazepine) 150 Mg Tablet, 450 MG PO BID, (Reported) Pantoprazole Sodium (Pantoprazole Sodium) 40 Mg Tablet.dr, 40 MG PO QPM, (Reported) Pravastatin Sodium (Pravastatin Sodium) 40 Mg Tablet, 40 MG PO QHS, (Reported) Prednisone (Prednisone) 10 Mg Tablet, 10 MG PO TAPER Take 6 tabs qd x 1 wk, then 5 tabs qd x 1wk, then 4 tabs qd 1wk, then 3 tab qd x 1wk, 2 tab qd x 1wk, 1 tab qd x1 week, STOP Ropinirole HCl (Ropinirole HCl) 1 Mg Tablet, 1 MG PO QHS, (Reported) Scheduled PRN Albuterol Sulf (Albuterol Sulfate) 2.5 Mg/3 Ml Vial.neb, 1 VIAL NEB Q4H PRN for SOB/WHEEZING Albuterol Sulfate (Proair Hfa) 8.5 Gm Hfa.aer.ad, 2 PUFF INH Q4-6HP PRN for wheezing Morphine Sulfate (Morphine Sulfate ER) 30 Mg Tablet.er, 30 MG PO BID PRN for PAIN, (Reported) Oxycodone HCl (Oxycodone HCl) 5 Mg Tablet, 10 MG PO TID PRN for PAIN, (Reported) Allergies Coded Allergies: No Known Drug Allergies (Verified Allergy, Unknown, 01/13/19) NEYDA SUGGS DO Sep 29, 2019 16:14 MATTY FULLER MD Sep 29, 2019 18:35
[2019-09-30 17:13] LABS: ASPERGILLUS FUMIGATUS AB Negative (Negative); AUREOBASIDIUM PULLULANS Negative (Negative); MICROPOLYSPORA FAENI AB Negative (Negative); MYCOPLASMA PNEUMONIAE IgG <100 U/mL (0-99); MYCOPLASMA PNEUMONIAE IgM <770 U/mL (0-769); PIGEON SERUM AB Negative (Negative); THERMOACTINOMYCES SACCHARI Negative (Negative); THERMOACTINOMYCES VULGARIS Negative (Negative)
== END 2019-09-29 15:01 | disposition home or self-care (01) | DRG 871 ==
LOC: M ED 22:26 → M ED INP 09-25 00:48 → ENRESERV 09-25 00:57 → M ICU 09-25 01:45 → M PCU 09-27 16:55
PROVIDERS: ADMIT Internal Medicine Pulmonary Disease; ATTEND Student in an Organized Health Care Education/Training Program
PROC: 5A1935Z Respiratory Ventilation, Less than 24 Consecutive Hours (ICD-10-PCS; principal; 2019-09-25)
PROC: 0B9D7ZX Drainage of Right Middle Lung Lobe, Via Natural or Artificial Opening, Diagnostic (ICD-10-PCS; 2019-09-25)
PROC: 0B9L7ZX Drainage of Left Lung, Via Natural or Artificial Opening, Diagnostic (ICD-10-PCS; 2019-09-25)
DX: A41.9 Sepsis, unspecified organism (principal); J96.01 Acute respiratory failure with hypoxia; J18.9 Pneumonia, unspecified organism; J84.9 Interstitial pulmonary disease, unspecified; E87.1 Hypo-osmolality and hyponatremia; I10 Essential (primary) hypertension; M19.90 Unspecified osteoarthritis, unspecified site; G47.00 Insomnia, unspecified; G25.81 Restless legs syndrome; G89.29 Other chronic pain; G50.0 Trigeminal neuralgia; M54.81 Occipital neuralgia; F17.200 Nicotine dependence, unspecified, uncomplicated; Z79.899 Other long term (current) drug therapy; F12.90 Cannabis use, unspecified, uncomplicated; F11.90 Opioid use, unspecified, uncomplicated; M79.7 Fibromyalgia

== ENCOUNTER 2019-11-23 16:27 | Inpatient (IN) | payer MEDICARE, BC, OTHER ==
[~2019-11-23 16:27] MED LIST changes: +ACETAMINOPHEN 325 MG TAB As Ordered ONE; +ALBU83IN NEB; +AMLO1TAB24 PO; -AMLO5TAB6 PO; +AZIT-12 PO; +CEFD1CAP8 PO; +COMMENTS; +FUROSEMIDE 40MG/4ML VIAL (J1940) As Ordered ONE; +PANT40TA29 PO; -PANT40TA3 PO; +PROAAER10 INH; +VITA50005 PO; +methylPREDNISolone 125MG 2ML VIAL As Ordered ONE
[2019-11-23] MEDS ORDERED: ISOVUE-370 76% 100ML VIAL As Ordered ONE ×2 (17:11→18:32)
[2019-11-24] MEDS ORDERED: VANCOMYCIN 750MG/25ML VIAL As Ordered ONE ×2 (03:54→06:09)
[2019-11-24] MEDS ORDERED: methylPREDNISolone 40MG 1ML VIAL As Ordered ONE (03:55)
[2019-11-24] MEDS ORDERED: rOPINIRole 1MG TAB As Ordered ONE (03:55)
[2019-11-24] MEDS ORDERED: HEPARIN SOD (PORCINE) 5000UNITS/ML 1ML VIAL/SYRINGE As Ordered ONE ×2 (06:08→14:39)
[2019-11-24] MEDS ORDERED: PANTOPRAZOLE 40MG TAB (PROTONIX) As Ordered ONE (08:01)
[2019-11-24] MEDS ORDERED: MORPHINE 15 MG SA TAB As Ordered ONE (08:01)
[2019-11-24] MEDS ORDERED: GABAPENTIN 400 MG CAP As Ordered ONE ×2 (08:01→16:26)
[2019-11-24] MEDS ORDERED: FLUoxetine 20 MG CAP As Ordered ONE (08:01)
[2019-11-24] MEDS ORDERED: ZOSYN 3.375GM VIAL (J2543) As Ordered ONE ×2 (08:02→14:40)
[2019-11-24] MEDS ORDERED: LACTOBACILLUS ACIDOPHILUS CAP (BACID) As Ordered ONE (08:06)
[2019-11-24] MEDS ORDERED: methylPREDNISolone 125MG 2ML VIAL As Ordered ONE (11:27)
[2019-11-24] MEDS ORDERED: SYMB80INH INH (14:15)
[2019-11-24] MEDS ORDERED: APAP325T4 PO (14:15)
[2019-11-24] MEDS ORDERED: BACT800T5 PO (14:15)
[2019-11-24] MEDS ORDERED: PROBCAP14 PO (14:15)
[2019-11-24] MEDS ORDERED: VENTAER INH (14:15)
[2019-11-24] MEDS ORDERED: TIZA4CAP6 PO (14:15)
[2019-11-24] MEDS ORDERED: oxyCODONE 5MG TAB PO PRN (14:30)
[2019-11-24] MEDS ORDERED: tiZANidine 4 MG TAB PO PRN (14:30)
[2019-11-24] MEDS ORDERED: ALBUTEROL 90 MCG/ACT 8GM HFA INHALER INH PRN (14:30)
[2019-11-24] MEDS ORDERED: hydrOXYzine 25 MG TAB PO PRN (14:45)
[2019-11-24] MEDS ORDERED: ACETAMINOPHEN TAB 650MG DOSE (2X325MG) PO PRN (14:45)
[2019-11-24] MEDS ORDERED: ALBUTEROL SULFATE 2.5 MG/0.5 ML INH NEB SOLN INH PRN (14:45)
[2019-11-24] MEDS ORDERED: VANCOMYCIN 1000MG/20ML VIAL As Ordered ONE (16:26)
[2019-11-24 20:00] VITALS: BP 119/60
[2019-11-24] MEDS: IPRATROPIUM 0.5MG/ALBUTEROL 2.5MG INH SOL UD 3ML (DUONEB) NEB SCH (20:24)
[2019-11-24] MEDS: SYMBICORT 80/4.5MCG INHALER 6GM INH SCH (20:25)
[2019-11-24] MEDS: GABAPENTIN 400 MG CAP PO SCH (20:30)
[2019-11-24] MEDS: PIPERACILLIN/TAZOBACTAM SOD 3.375 GM in D5W MINI-BAG PLUS 50 ML IV SCH (20:31)
[2019-11-24] MEDS: methylPREDNISolone 125MG 2ML VIAL IV SCH (20:31)
[2019-11-24] MEDS: FLUoxetine 20 MG CAP PO SCH (20:31)
[2019-11-24] MEDS: OXcarbazepine 150 MG TAB PO SCH (20:31)
[2019-11-24] MEDS ORDERED: PRAVASTATIN 20 MG TAB PO SCH (21:00)
[2019-11-24] MEDS ORDERED: rOPINIRole 1MG TAB PO SCH (21:00)
[2019-11-24 22:02] LABS: APPEARANCE, URINE CLEAR (CLEAR); BACTERIA, URINE AUTO NEGATIVE (NEGATIVE); BILIRUBIN, URINE AUTO NEGATIVE (NEGATIVE); BLOOD, URINE BLOOD NEGATIVE (NEGATIVE); COLOR, URINE YELLOW (YELLOW); GLUCOSE, URINE (UA) AUTO NEGATIVE (NEGATIVE); KETONE, URINE AUTO TRACE mg/dL (NEGATIVE); LEUKOCYTE ESTERASE, URINE AUTO NEGATIVE (NEGATIVE); NITRITE, URINE AUTO NEGATIVE (NEGATIVE); PROTEIN, URINE AUTO NEGATIVE (NEGATIVE); RBC, URINE AUTO 1 /HPF (0-3); SPECIFIC GRAVITY URINE AUTO 1.049 (1.002-1.035); SQUAMOUS EPITHELIAL CELL UR AU 0 /HPF (0-6); WBC, URINE AUTO 1 /HPF (0-3)
[2019-11-24 22:13] LABS: HEMOGLOBIN 10.5 g/dl (12.0-15.5); MEAN CORPUSCULAR HEMOGLOBIN 26.6 pg (27.0-33.0); MEAN CORPUSCULAR HGB CONC 33.9 g/dl (32.0-36.5); MEAN CORPUSCULAR VOLUME 78.7 fl (80.0-96.0); PLATELET COUNT, AUTOMATED 281 10^3/uL (150-450); RED BLOOD COUNT 3.94 10^6/uL (4.00-5.40); WHITE BLOOD COUNT 21.7 10^3/uL (4.0-10.0)
[2019-11-24] MEDS: HEPARIN SOD (PORCINE) 5000UNITS/ML 1ML VIAL/SYRINGE SQ SCH (22:25)
[2019-11-24] MEDS: MORPHINE 30 MG SA TAB PO SCH (22:26)
[2019-11-25] VITALS: BP 132/71
[2019-11-25] MEDS: IPRATROPIUM 0.5MG/ALBUTEROL 2.5MG INH SOL UD 3ML (DUONEB) NEB SCH ×3 (01:35→14:13)
[2019-11-25] MEDS: PIPERACILLIN/TAZOBACTAM SOD 3.375 GM in D5W MINI-BAG PLUS 50 ML IV SCH ×3 (02:57→14:00)
[2019-11-25] MEDS: methylPREDNISolone 125MG 2ML VIAL IV SCH (03:00)
[2019-11-25 04:00] VITALS: BP 125/60
[2019-11-25] MEDS ORDERED: VANCOMYCIN HCL 1,000 MG, VIAL MATE ADAPTER 1 EACH in D5W 250 ML IV SCH (05:00)
[2019-11-25] MEDS: HEPARIN SOD (PORCINE) 5000UNITS/ML 1ML VIAL/SYRINGE SQ SCH ×2 (05:16→14:00)
[2019-11-25 07:39] VITALS: BP 137/81
[2019-11-25] MEDS: SYMBICORT 80/4.5MCG INHALER 6GM INH SCH (07:44)
[2019-11-25] MEDS: FLUoxetine 20 MG CAP PO SCH (08:25)
[2019-11-25] MEDS: GABAPENTIN 400 MG CAP PO SCH ×2 (08:25→16:00)
[2019-11-25] MEDS: OXcarbazepine 150 MG TAB PO SCH (08:26)
[2019-11-25] MEDS: MORPHINE 30 MG SA TAB PO SCH (08:27)
[2019-11-25] MEDS ORDERED: PANTOPRAZOLE 40MG TAB (PROTONIX) PO SCH (09:00)
[2019-11-25] MEDS ORDERED: LACTOBACILLUS ACIDOPHILUS CAP (BACID) PO SCH (09:00)
[2019-11-25 10:23] LABS: BLOOD UREA NITROGEN 13 MG/DL (7-18); CALCIUM LEVEL 8.9 MG/DL (8.5-10.1); CARBON DIOXIDE LEVEL 30 MEQ/L (21-32); CHLORIDE LEVEL 95 MEQ/L (98-107); CREATININE FOR GFR 0.55 MG/DL (0.55-1.30); GLOMERULAR FILTRATION RATE > 60.0 (>51); GLUCOSE, FASTING 133 MG/DL (70-100); POTASSIUM SERUM 4.3 MEQ/L (3.5-5.1); SODIUM LEVEL 132 MEQ/L (136-145)
[2019-11-25] MEDS ORDERED: SLF 3 ML SYR IV PRN (11:15)
[2019-11-25 12:00] VITALS: BP 152/76
[2019-11-25] MEDS ORDERED: predniSONE 50 MG TAB PO ONE (12:00)
[2019-11-25] MEDS ORDERED: AUGM875T28 PO (13:25)
[2019-11-25] MEDS ORDERED: PRED10TA2 PO (13:25)
[2019-11-25] MEDS ORDERED: SLF 3 ML SYR IV SCH (14:00)
--- NOTE | 2019-11-25 14:22 | DS.PDOC ---
Discharge Summary General Date of Admission Nov 24, 2019 at 02:44 Date of Discharge 11/25/2019 Attending Physician: DEV SHABAZZ MD Discharge Summary PROCEDURES PERFORMED DURING STAY: [None]. ADMITTING DIAGNOSES: 1.acute hypoxic respir failure DISCHARGE DIAGNOSES: 1. acute hypoxic respir failure likely 2/2 to pulmonary fibrosis COMPLICATIONS/CHIEF COMPLAINT: Shortness Of Breath. HISTORY OF PRESENT ILLNESS: Patient presents to ER for sob and increased cough that's been progressively getting worse in the past day. She usually uses 3 L O2 at home at rest and cranks it up to 5L when doing things. This time she reports that she's still short of breath when at 5L O2 and has been coughing up a lot of productive yellowish sputum. She also reports some heaviness in her chest due to the shortness of breath and reports a subjective fever of Tmax 101. She denies chills, n/v/d, abdominal discomfort HOSPITAL COURSE: Patient presents to ER for sob and increased cough. Pt has a hx of interstital lung disease whom she follows with an pulmonogist from [place]. She has home oxygen and usually uses 3L at rest and 5L when doing things. In ER patient is satting at 82% RA, and was put on non rebreather and then 50% venti mask and satted at 94%. CT chest shows interstital air space dx mostly located in upper lobe distribution and ABG shows findings of acute hypoxic respiratory failure. She was given a loading dose of solumderol and a breathing treatment. Troponin and EKG trends wnl, blood cx and sputum culture ordered. B/c of her severe shortness of breath, we ordered a CTA chest to r/o PE. CTA showed no pulmonary embolus as cause of her hypoxia. Pt was put on vanc and zosyn and MRSA PCR swabbed, came back negative and she was able to be d/c'd off of vanco. She was placed on solumderol IV 60mg Iv Q6 and. Wheezing improved on hospital day 2 and patient was able to be weaned off of the solumderol and Oxygen. At time of discharge patient is able to tolerate and sat in 92% on 3L O2. Pt is d/c'd home with 7 day regimen of augmentin and a prednisone taper. She is instructed to follow outpt with PCP and pulmonogist within 1 week of hospital discharge. She was also instructed that if her condition gets worse that she needs to report back to her nearest ER. DISCHARGE MEDICATIONS: Please see below. ALLERGIES: Please see below. PHYSICAL EXAMINATION ON DISCHARGE: VITAL SIGNS: Please see below. GENERAL: NAD, resting comfortably in bed, no accessory m use, no retractions HEENT: head atruamitc EOMI, mucosa moist NECK:no lymadenopathy, neck supple no thyromegaly CARDIOVASCULAR EXAMINATION: Ns1,2, no m/g/r RESPIRATORY EXAMINATION: no wheezing, rhonci or rales ABDOMINAL EXAMINATION: soft, nt, nd, nbs EXTREMITIES/SKIN :no pitting edema, no bruising, cyanosis, clubbing or hematomas NEUROLOGICAL EXAMINATION: no focal neuro deficits PSYCHIATRIC EXAMINATION: appropriate mood and affect LABORATORY DATA: Please see below. IMAGING: [see chart. some imaging reports on paper due to emr being down at hospital ] ACTIVITY: [As tolerated]. DIET: normal DISCHARGE PLAN: pcp and pulm follow up outpt within 1 week DISPOSITION: d/c home DISCHARGE INSTRUCTIONS: Augmentin for 7 days instructions as directed prednisone taper- instructions given to patient ITEMS TO FOLLOWUP ON ON OUTPATIENT: pcp and pulm follow up outpt within 1 week DISCHARGE CONDITION: okay for discharge to home Vital Signs/I&Os Vital Signs Date Time Temp Pulse Resp B/P (MAP) Pulse Ox O2 Delivery O2 Flow Rate FiO2 11/25/19 12:00 97.6 78 18 152/76 (101) 95 Nasal Cannula 11/25/19 12:00 3.0 I&O- Last 24 Hours up to 6 AM 11/25/19 06:00 Intake Total 240 ml Output Total 350 ml Balance -110 ml Laboratory Data Labs 24H Laboratory Tests 2 11/25/19 09:33: Anion Gap 7L, Glomerular Filtration Rate > 60.0, Calcium Level 8.9 CBC/BMP Laboratory Tests 11/25/19 09:33 Discharge Medications Scheduled Amoxicillin/Potassium Clav (Augmentin 875-125 Tablet) 1 Each Tablet, 1 TAB PO BID Budesonide/Formoterol (Symbicort 80-4.5 Mcg Inhaler) 6.9 Gm Hfa.aer.ad, 2 PUFF INH BID, (Reported) Ergocalciferol (Vitamin D2) (Vitamin D2) 50,000 Units Cap, 50,000 UNITS PO 1XWK, (Reported) SATURDAY Fluoxetine Hcl (Fluoxetine HCl) 20 Mg Capsule, 20 MG PO BID, (Reported) Gabapentin (Gabapentin) 600 Mg Tablet, 1,200 MG PO TID, (Reported) Lactobacillus Acidophilus (Probiotic) 1 Each Capsule, 1 CAP PO DAILY, (Reported) Morphine Sulfate (Morphine Sulfate ER) 30 Mg Tablet.er, 30 MG PO BID, (Reported) Oxcarbazepine (Oxcarbazepine) 150 Mg Tablet, 450 MG PO BID, (Reported) Pantoprazole Sodium (Pantoprazole Sodium) 40 Mg Tablet.dr, 40 MG PO QHS, (Reported) Pravastatin Sodium (Pravastatin Sodium) 40 Mg Tablet, 40 MG PO QHS, (Reported) Prednisone (Prednisone) 10 Mg Tablet, 10 MG PO DAILY take 4 tabs daily x3 days; then 3 tabs daily x3 days; then 2 tabs daily x3 days; then 1 tab daily x3 days. Ropinirole HCl (Ropinirole HCl) 1 Mg Tablet, 1 MG PO QHS, (Reported) Sulfamethoxazole/Trimethoprim (Bactrim Ds Tablet) 1 Each Tablet, 1 TAB PO 3XW, (Reported) MON, WED, FRI Scheduled PRN Acetaminophen (Acetaminophen) 325 Mg Tablet, 650 MG PO Q6H PRN for PAIN / FEVER, (Reported) Albuterol Sulfate (Ventolin Hfa) 18 Gm Hfa.aer.ad, 2 PUFFS INH QID PRN for SHORTNESS OF BREATH, (Reported) Oxycodone HCl (Oxycodone HCl) 5 Mg Tablet, 5 MG PO Q3HP PRN for PAIN, (Reported) Tizanidine HCl (Tizanidine HCl) 4 Mg Capsule, 4 MG PO TID PRN for MUSCLE SPASMS, (Reported) Allergies Coded Allergies: No Known Drug Allergies (Verified Allergy, Unknown, 01/13/19) E ATTESTATION E ATTESTATION My faculty preceptor for this patient encounter was physically present during the encounter and was fully available. All aspects of the patient interview, examination, medical decision making process, and medical care plan development were reviewed and approved by the faculty preceptor. The faculty preceptor is aware and concurs with the plan as stated in the body of this note and will attest to such by his/her cosignature. GME ATTESTATION E ATTESTATION My faculty preceptor for this patient encounter was physically present during the encounter and was fully available. All aspects of the patient interview, examination, medical decision making process, and medical care plan development were reviewed and approved by the faculty preceptor. The faculty preceptor is aware and concurs with the plan as stated in the body of this note and will attest to such by his/her cosignature. ATTENDING NOTE Patient independently seen and examined. Agree with resident's note. Rupali Mcgrath DO Nov 25, 2019 14:21 DEV SHABAZZ MD Dec 22, 2019 11:39
[2019-11-28 23:24] LABS: ALBUMIN 2.8 GM/DL (3.2-5.2); ALT/SGPT 29 U/L (12-78); BILIRUBIN,TOTAL 0.4 MG/DL (0.2-1.0); BLOOD UREA NITROGEN 10 MG/DL (7-18); CALCIUM LEVEL 8.4 MG/DL (8.5-10.1); CARBON DIOXIDE LEVEL 26 MEQ/L (21-32); CHLORIDE LEVEL 96 MEQ/L (98-107); GLOMERULAR FILTRATION RATE > 60.0 (>51); GLUCOSE, FASTING 154 MG/DL (70-100); POTASSIUM SERUM 3.6 MEQ/L (3.5-5.1); SODIUM LEVEL 130 MEQ/L (136-145); TOTAL PROTEIN 5.9 GM/DL (6.4-8.2)
--- NOTE | 2019-12-20 16:18 | ECGEPIP ---
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
--- NOTE | 2019-12-29 09:46 | ECGEPIP ---
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
[2020-01-05 11:15] LABS: INR 1.04; PARTIAL THROMBOPLASTIN TIME 33.1 SECONDS (24.2-38.5); PROTHROMBIN TIME 13.8 SECONDS (12.5-14.3)
[2020-01-07 11:55] LABS: BASO # 0.1 10^3/uL (0.0-0.2); BASO % 0.4 % (0.0-1.0); EOS # 0.1 10^3/uL (0.0-0.5); EOS % 0.3 % (0.0-3.0); HEMATOCRIT 28.5 % (36.0-47.0); HEMOGLOBIN 9.5 g/dl (12.0-15.5); LYMPH % 9.8 % (24.0-44.0); MEAN CORPUSCULAR HEMOGLOBIN 26.5 pg (27.0-33.0); MEAN CORPUSCULAR HGB CONC 33.3 g/dl (32.0-36.5); MEAN CORPUSCULAR VOLUME 79.4 fl (80.0-96.0); MONO # 1.4 10^3/uL (0.0-0.8); MONO % 6.7 % (0.0-5.0); NEUTROPHILS # 16.9 10^3/uL (1.5-8.5); NEUTROPHILS % 82.1 % (36.0-66.0); PLATELET COUNT, AUTOMATED 288 10^3/uL (150-450); RED BLOOD COUNT 3.59 10^6/uL (4.00-5.40); WHITE BLOOD COUNT 20.6 10^3/uL (4.0-10.0)
[2020-02-14 16:11] LABS: ABG BASE EXCESS -0.9 (-2.0-2.0); ABG HCO3 23.4 MEQ/L (22.0-26.0); ABG O2 SATURATION 98.7 % (95.0-99.0); ABG PARTIAL PRESSURE CO2 37.2 mmHg (35.0-45.0); ABG PARTIAL PRESSURE O2 131.6 mmHg (75.0-100.0); ABG STANDARD HCO3 23.8 MEQ/L (22.0-26.0); ABG TOTAL CO2 24.5 MEQ/L (22.0-29.0); ABG pH (ARTERIAL) 7.416 UNITS (7.350-7.450)
[2020-02-14 16:17] LABS: ALT/SGPT 29 U/L (12-78); BILIRUBIN,DIRECT 0.2 MG/DL (0.0-0.2); BILIRUBIN,TOTAL 0.5 MG/DL (0.2-1.0); BLOOD UREA NITROGEN 7 MG/DL (7-18); CALCIUM LEVEL 8.3 MG/DL (8.5-10.1); CARBON DIOXIDE LEVEL 26 MEQ/L (21-32); CHLORIDE LEVEL 93 MEQ/L (98-107); CPK CREATINE PHOSPHOKINASE 233 U/L (26-192); CREATININE FOR GFR 0.84 MG/DL (0.55-1.30); GLOMERULAR FILTRATION RATE > 60.0 (>51); GLUCOSE, FASTING 82 MG/DL (70-100); MB/CK RELATIVE INDEX 0.43 (< OR =4); NT-PRO BNP 742 PG/ML (<125); POTASSIUM SERUM 4.6 MEQ/L (3.5-5.1); SODIUM LEVEL 127 MEQ/L (136-145); TROPONIN I < 0.02 NG/ML (< 0.10)
== END 2019-11-25 16:54 | disposition home or self-care (01) | DRG 196 ==
LOC: M ED 16:27 → M PCU 11-24 02:44
PROVIDERS: ADMIT Internal Medicine; ATTEND Internal Medicine
DX: J84.10 Pulmonary fibrosis, unspecified (principal); J96.01 Acute respiratory failure with hypoxia; Z79.899 Other long term (current) drug therapy; I10 Essential (primary) hypertension; K21.9 Gastro-esophageal reflux disease without esophagitis; G50.0 Trigeminal neuralgia; G25.81 Restless legs syndrome; F41.9 Anxiety disorder, unspecified; M54.81 Occipital neuralgia

== ENCOUNTER 2020-01-12 22:31 | Inpatient (IN) | payer MEDICARE, BC, OTHER ==
[~2020-01-12] VITALS: Ht 147.3 cm; Wt 76.8 kg
[~2020-01-12 22:31] MED LIST changes: -ACETAMINOPHEN 325 MG TAB As Ordered ONE; +APAP325T4 PO; +AUGM875T28 PO; +BACT800T5 PO; -FUROSEMIDE 40MG/4ML VIAL (J1940) As Ordered ONE; +PROBCAP14 PO; +SYMB80INH INH; +TIZA4CAP6 PO; +VENTAER INH; -methylPREDNISolone 125MG 2ML VIAL As Ordered ONE
[2020-01-12] MEDS ORDERED: IBUPROFEN 600MG TAB As Ordered ONE (22:56)
[2020-01-12] MEDS ORDERED: IBUPROFEN 600MG TAB PO ONE (23:00)
[2020-01-12] MEDS ORDERED: dexameTHASONE 20MG/5ML VIAL (J1100 PER 1MG) IV ONE (23:15)
[2020-01-12] MEDS: COMBIVENT RESPIMAT 100-20MCG INHALER 4GM INH SCH (23:51)
--- NOTE | 2020-01-13 00:15 | REPVR ---
PROCEDURE INFORMATION: Exam: XR Chest, 1 View Exam date and time: 01/12/2020 11:21 PM Age: 49 years old Clinical indication: Cough; Additional info: Dyspnea TECHNIQUE: Imaging protocol: XR of the chest Views: 1 view. COMPARISON: 1. CR - Chest, 1 view 11/23/2019 12:46 PM 2. SC - PORTABLE CHEST X-RAY 09/27/2019 7:35:44 AM 3. SC - PORTABLE CHEST X-RAY 09/26/2019 6:48:02 AM 4. SC - CT Chest with contrast 04/27/2019 5:41:15 PM FINDINGS: Tubes, catheters and devices: There is an electronic device projecting over the left upper posterior chest wall that was present in the prior chest x-rays on 11/23/2019, 09/27/2019, and 09/26/2019. Lungs: There are airspace opacities in both lungs, with improved aeration compared to the prior chest x-ray on 11/23/2019. Pleural space: Unremarkable. No pleural effusion or pneumothorax is identified. Heart/Mediastinum: Unremarkable. No cardiomegaly. Bones/joints: Unremarkable. Intraperitoneal space: There are surgical clips in the right upper quadrant of the abdomen. IMPRESSION: Airspace opacities in both lungs, with improved aeration compared to the prior chest x-ray on 11/23/2019. Electronically signed by: J Luis Guevara On 01/13/2020 00:15:27 AM
[2020-01-13] MEDS: COMBIVENT RESPIMAT 100-20MCG INHALER 4GM INH SCH (00:36)
[2020-01-13 00:48] LABS: BASO # 0.1 10^3/uL (0.0-0.2); BASO % 0.3 % (0.0-1.0); EOS # 0.1 10^3/uL (0.0-0.5); EOS % 0.6 % (0.0-3.0); HEMATOCRIT 33.4 % (36.0-47.0); HEMOGLOBIN 10.8 g/dl (12.0-15.5); LYMPH # 1.5 10^3/uL (1.5-5.0); LYMPH % 7.7 % (24.0-44.0); MEAN CORPUSCULAR HGB CONC 32.3 g/dl (32.0-36.5); MEAN CORPUSCULAR VOLUME 80.3 fl (80.0-96.0); MONO % 5.1 % (0.0-5.0); NEUTROPHILS % 85.7 % (36.0-66.0); PLATELET COUNT, AUTOMATED 312 10^3/uL (150-450); RED BLOOD COUNT 4.16 10^6/uL (4.00-5.40); WHITE BLOOD COUNT 19.8 10^3/uL (4.0-10.0)
[2020-01-13] MEDS ORDERED: ALBUTEROL SULFATE 2.5 MG/0.5 ML INH NEB SOLN NEB PRN (02:30)
[2020-01-13] MEDS ORDERED: MOM 30ML SUSPENSION UDC PO PRN (02:30)
[2020-01-13] MEDS ORDERED: ACETAMINOPHEN TAB 650MG DOSE (2X325MG) PO PRN (02:30)
--- NOTE | 2020-01-13 02:40 | HPEPDOC ---
[facility] Medical History & Physical Date of Admission Jan 13, 2020 Date of Service: Jan 13, 2020 History and Physical CHIEF COMPLAINT: Shortness of breath HISTORY OF PRESENT ILLNESS: 49-year-old female with past medical history of idiopathic pulmonary fibrosis with frequent exacerbations presents to the emergency department after 2 day history of worsening shortness of breath uses 2-3 L of oxygen at home at baseline but has had to increase it to 3-4 L upon exertion over the past 2 days. She also endorses a fever, chills, productive yellow sputum since yesterday. Also reports increasing wheezing. Patient has had a history of prior episodes of exacerbation leading to respiratory failure and intubations the last was in September of this year. At the time patient was seen she appeared comfortable and was watching videos on her cell phone. She tells me she is already feeling better since she's been to the hospital. She follows up with a scrape gatherer in [place]. PAST MEDICAL HISTORY: Idiopathic pulmonary fibrosis SOCIAL HISTORY: Denies illicit drug use. Drinks alcohol socially every few weeks with friends. Active tobacco smoker smokes half a pack per day and does not want a nicotine patch. FAMILY HISTORY: History of idiopathic pulmonary fibrosis in the family ALLERGIES: Please see below. REVIEW OF SYSTEMS: Constitutional: No sweating or weight loss Eyes: No eye pain or acute blurred vision HENT: No complaints of headache or sore throat Cadiovascular: No Chest pain or palpitations Pulm: Per HPI Gastrointestinal: No N/V, no abdominal pain. Genitourinary: No dysuria or hematuria Musculoskeletal: No back pain or joint pain Skin: No rash or jaundice Neurological: No weakness. HOME MEDICATIONS: Please see below. PHYSICAL EXAMINATION: Constitutional: Awake and alert, in no apparent distress at this time was watching videos in her cell phone and appeared relaxed ENT: Sclera are clear. Mucosa is moist. Respiratory: Lungs mild wheezing bilaterally bilaterally Velcro-like fine crackles bilaterally. No respiratory distress. No use of accessory muscles. Cardiovascular: RRR S1 and S2 are normal, no murmur Gastrointestinal: Abdomen is soft, non distended, non tender, BS present. Musculoskeletal: No edema. No joint deformities. RUE 5/5, LUE 5/5, BLE 5/5 Neurologic: No focal neurological deficit. Mental Status: A&O x3, normal affect Skin: Warm, dry LABORATORY DATA: See below. IMAGING: CXR MICROBIOLOGY: Please see below. ASSESSMENT/PLAN 49-year-old female with past medical history of idiopathic bone fibrosis admitted for shortness of breath resulting from acute exacerbation of her pulmonary fibrosis. Patient admitted for further medical management. # Idiopathic pulmonary fibrosis: In exacerbation likely from underlying pneumonia. Pulmonology consulted. Nebs scheduled and PRN. CXR reviewed. Prednisone 5x days. # CAP: Ceftx & Azithro. Check ekg for qtc. gentle IVFs. Trend lactate. BCx pending, RVP negative. Febrile 104.7 in ED. Tyelnol PRN fever. Scheduled and PRN Duonebs. Urine strep Ag and Legionella. Sputum culture. # Leukoytosis: appears to be chronically elevated. # DVT prophylaxis: lovenox Vital Signs Vital Signs Date Time Temp Pulse Resp B/P (MAP) Pulse Ox O2 Delivery O2 Flow Rate FiO2 01/13/20 01:16 82 22 97 Nasal Cannula 4.0 01/13/20 01:15 99/53 (68) 01/13/20 01:13 100.4 Laboratory Data Labs 24H Laboratory Tests 2 01/12/20 23:27: POC pH (Misc Panel) 7.409, POC Base Excess (Misc Panel) -1.0, POC Saturated Percent O2 (Misc) 98, POC pO2 (Misc Panel) 105.0, POC pCO2 (Misc Panel) 36.8, POC HCO3 (Misc Panel) 23.3, POC Total CO2 (Misc Panel) 24.0 01/12/20 23:43: POC Total CO2 (Misc Panel) 23.0, POC Glucose (Misc Panel) 112H, POC Sodium (Misc Panel) 130L, POC Potassium (Misc Panel) 4.2, POC Chloride (Misc Panel) 95L, POC Blood Urea Nitrogen (Misc Panel 7L, POC Ionized Calcium (Misc Panel) 4.5, POC Creatinine (Misc Panel) 0.6, POC Hematocrit (Misc Panel) 37.0L 01/12/20 23:44: Immature Granulocyte % (Auto) 0.6, Neutrophils (%) (Auto) 85.7H, Lymphocytes (%) (Auto) 7.7L, Monocytes (%) (Auto) 5.1H, Eosinophils (%) (Auto) 0.6, Basophils (%) (Auto) 0.3, Neutrophils # (Auto) 17.0H, Lymphocytes # (Auto) 1.5, Monocytes # (Auto) 1.0H, Eosinophils # (Auto) 0.1, Basophils # (Auto) 0.1, Nucleated Red Blood Cells % (auto) 0.0 01/12/20 23:52: POC Lactate (Misc Panel) 2.11*H CBC/BMP Laboratory Tests 01/12/20 23:44 Microbiology Microbiology 01/12/20 Respiratory Virus Panel (PCR) (JAEL) - Final, Complete 01/12/20 Blood Culture, Received Pending 01/12/20 Blood Culture, Received Pending Home Medications Scheduled Budesonide/Formoterol (Symbicort 80-4.5 Mcg Inhaler) 6.9 Gm Hfa.aer.ad, 2 PUFF INH BID Ergocalciferol (Vitamin D2) (Vitamin D2) 50,000 Units Cap, 50,000 UNITS PO 1XWK SATURDAY Fluoxetine Hcl (Fluoxetine HCl) 20 Mg Capsule, 20 MG PO BID Gabapentin (Gabapentin) 600 Mg Tablet, 1,200 MG PO TID Lactobacillus Acidophilus (Probiotic) 1 Each Capsule, 1 CAP PO DAILY Morphine Sulfate (Morphine Sulfate ER) 30 Mg Tablet.er, 30 MG PO BID Oxcarbazepine (Oxcarbazepine) 150 Mg Tablet, 450 MG PO BID Pantoprazole Sodium (Pantoprazole Sodium) 40 Mg Tablet.dr, 40 MG PO QHS Pravastatin Sodium (Pravastatin Sodium) 40 Mg Tablet, 40 MG PO QHS Ropinirole HCl (Ropinirole HCl) 1 Mg Tablet, 1 MG PO QHS Scheduled PRN Acetaminophen (Acetaminophen) 325 Mg Tablet, 650 MG PO Q6H PRN for PAIN / FEVER Albuterol Sulfate (Ventolin Hfa) 18 Gm Hfa.aer.ad, 2 PUFFS INH QID PRN for SHORTNESS OF BREATH Oxycodone HCl (Oxycodone HCl) 5 Mg Tablet, 5 MG PO Q3HP PRN for PAIN Tizanidine HCl (Tizanidine HCl) 4 Mg Capsule, 4 MG PO TID PRN for MUSCLE SPASMS Allergies Coded Allergies: No Known Drug Allergies (Verified Allergy, Unknown, 01/13/20) A-FIB/CHADSVASC A-FIB History Current/History of A-Fib/PAF?: No ELIZ OCHOA MD Jan 13, 2020 02:40
[2020-01-13] MEDS ORDERED: ACET-897 PO (02:43)
[2020-01-13] MEDS ORDERED: AMLO1TAB24 PO (02:43)
[2020-01-13] MEDS: cefTRIAXone SOD 1 GM in D5W MINI-BAG PLUS 50 ML IV SCH (04:11)
[2020-01-13] MEDS: NS 1,000 ML IV SCH ×2 (04:11→22:44)
[2020-01-13] MEDS: AZITHROMYCIN INJ 500 MG, VIAL MATE ADAPTER 1 EACH in D5W 250 ML IV SCH (06:19)
[2020-01-13 06:44] LABS: HEMATOCRIT 33.4 % (36.0-47.0); MEAN CORPUSCULAR HEMOGLOBIN 26.1 pg (27.0-33.0); MEAN CORPUSCULAR HGB CONC 32.9 g/dl (32.0-36.5); MEAN CORPUSCULAR VOLUME 79.3 fl (80.0-96.0); PLATELET COUNT, AUTOMATED 295 10^3/uL (150-450); RED BLOOD COUNT 4.21 10^6/uL (4.00-5.40); WHITE BLOOD COUNT 24.2 10^3/uL (4.0-10.0)
[2020-01-13 07:15] LABS: ALT/SGPT 33 U/L (12-78); BILIRUBIN,TOTAL 0.4 MG/DL (0.2-1.0); BLOOD UREA NITROGEN 8 MG/DL (7-18); CALCIUM LEVEL 8.4 MG/DL (8.5-10.1); CARBON DIOXIDE LEVEL 26 MEQ/L (21-32); CHLORIDE LEVEL 100 MEQ/L (98-107); CREATININE FOR GFR 0.52 MG/DL (0.55-1.30); GLOMERULAR FILTRATION RATE > 60.0 (>51); GLUCOSE, FASTING 144 MG/DL (70-100); SODIUM LEVEL 132 MEQ/L (136-145); TOTAL PROTEIN 6.4 GM/DL (6.4-8.2)
[2020-01-13] MEDS: IPRATROPIUM 0.5MG/ALBUTEROL 2.5MG INH SOL UD 3ML (DUONEB) NEB SCH ×3 (07:40→19:15)
[2020-01-13] MEDS: SYMBICORT 80/4.5MCG INHALER 6GM INH SCH ×2 (07:44→19:15)
[2020-01-13] MEDS: predniSONE 20 MG TAB PO SCH (08:29)
[2020-01-13] MEDS: ENOXAPARIN 40MG/0.4ML SYRINGE (J1650 PER 10MG) SC SCH (08:31)
--- NOTE | 2020-01-13 08:35 | ECGEPIP ---
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
[2020-01-13 09:45] VITALS: BP 116/68
[2020-01-13 12:00] VITALS: BP 115/61
[2020-01-13] MEDS ORDERED: tiZANidine 4 MG TAB PO PRN (12:15)
[2020-01-13] MEDS: oxyCODONE 5MG TAB PO PRN ×3 (12:36→21:24)
[2020-01-13] MEDS: OXcarbazepine 150 MG TAB PO SCH ×2 (13:47→20:34)
[2020-01-13 16:00] VITALS: BP 118/61
[2020-01-13] MEDS: LACTOBACILLUS ACIDOPHILUS CAP (BACID) PO SCH (16:33)
[2020-01-13] MEDS: GABAPENTIN 400 MG CAP PO SCH ×2 (16:33→20:34)
[2020-01-13 20:00] VITALS: BP 121/60
[2020-01-13 20:33] VITALS: BP 121/60
[2020-01-13] MEDS: FLUoxetine 20 MG CAP PO SCH (20:33)
[2020-01-13] MEDS: MORPHINE 30 MG SA TAB PO SCH (20:34)
[2020-01-13] MEDS ORDERED: PANTOPRAZOLE 40MG TAB (PROTONIX) PO SCH (21:00)
[2020-01-13] MEDS ORDERED: rOPINIRole 1MG TAB PO SCH (21:00)
[2020-01-13] MEDS ORDERED: PRAVASTATIN 20 MG TAB PO SCH (21:00)
[2020-01-13] MEDS ORDERED: amLODIPine 5 MG TAB PO SCH (21:00)
[2020-01-14] VITALS: BP 119/65
[2020-01-14] MEDS: IPRATROPIUM 0.5MG/ALBUTEROL 2.5MG INH SOL UD 3ML (DUONEB) NEB SCH ×2 (01:22→07:09)
[2020-01-14] MEDS ORDERED: diphenhydrAMINE 25MG CAP PO ONE (02:45)
[2020-01-14] MEDS: cefTRIAXone SOD 1 GM in D5W MINI-BAG PLUS 50 ML IV SCH (02:56)
[2020-01-14 04:00] VITALS: BP 134/63
[2020-01-14] MEDS: AZITHROMYCIN INJ 500 MG, VIAL MATE ADAPTER 1 EACH in D5W 250 ML IV SCH (06:03)
[2020-01-14 06:05] LABS: HEMATOCRIT 32.5 % (36.0-47.0); HEMOGLOBIN 10.1 g/dl (12.0-15.5); MEAN CORPUSCULAR HEMOGLOBIN 25.8 pg (27.0-33.0); MEAN CORPUSCULAR HGB CONC 31.1 g/dl (32.0-36.5); MEAN CORPUSCULAR VOLUME 82.9 fl (80.0-96.0); PLATELET COUNT, AUTOMATED 197 10^3/uL (150-450); RED BLOOD COUNT 3.92 10^6/uL (4.00-5.40)
[2020-01-14 06:38] LABS: ALBUMIN 2.7 GM/DL (3.2-5.2); ALT/SGPT 30 U/L (12-78); BILIRUBIN,TOTAL 0.1 MG/DL (0.2-1.0); BLOOD UREA NITROGEN 8 MG/DL (7-18); CALCIUM LEVEL 8.2 MG/DL (8.5-10.1); CARBON DIOXIDE LEVEL 24 MEQ/L (21-32); CHLORIDE LEVEL 108 MEQ/L (98-107); GLOMERULAR FILTRATION RATE > 60.0 (>51); GLUCOSE, FASTING 102 MG/DL (70-100); SODIUM LEVEL 139 MEQ/L (136-145); TOTAL PROTEIN 5.8 GM/DL (6.4-8.2)
[2020-01-14] MEDS: SYMBICORT 80/4.5MCG INHALER 6GM INH SCH (07:09)
[2020-01-14 08:00] VITALS: BP 145/68
[2020-01-14] MEDS: MORPHINE 30 MG SA TAB PO SCH (08:18)
[2020-01-14] MEDS: predniSONE 20 MG TAB PO SCH (08:19)
[2020-01-14] MEDS: FLUoxetine 20 MG CAP PO SCH (08:19)
[2020-01-14] MEDS: LACTOBACILLUS ACIDOPHILUS CAP (BACID) PO SCH (08:19)
[2020-01-14] MEDS: OXcarbazepine 150 MG TAB PO SCH (08:19)
[2020-01-14] MEDS: GABAPENTIN 400 MG CAP PO SCH (08:19)
[2020-01-14] MEDS: ENOXAPARIN 40MG/0.4ML SYRINGE (J1650 PER 10MG) SC SCH (08:20)
[2020-01-14] MEDS ORDERED: PRED20TA PO (11:26)
[2020-01-14] MEDS ORDERED: LEVO500T3 PO (11:26)
[2020-01-14] MEDS: NS 1,000 ML IV SCH (11:50)
[2020-01-14 12:00] VITALS: BP 139/75
--- NOTE | 2020-01-14 16:47 | DS.PDOC ---
Discharge Summary General Date of Admission Jan 13, 2020 at 02:21 Date of Discharge 01/14/20 Attending Physician: Marla Burch MD Discharge Summary HISTORY OF PRESENT ILLNESS: Patient is a 49-year-old female with past medical history of idiopathic pulmonary fibrosis with frequent exacerbations presents to the emergency department after 2 day history of worsening shortness of breath uses 2-3 L of oxygen at home at baseline but has had to increase it to 3-4 L upon exertion over the past 2 days. She also endorses a fever, chills, productive yellow sputum since yesterday. Also reports increasing wheezing. Patient has had a history of prior episodes of exacerbation leading to respiratory failure and intubations the last was in September of this year. At the time patient was seen she appeared comfortable and was watching videos on her cell phone. She tells me she is already feeling better since she's been to the hospital. She follows up with a offset plate maker in [place]. Patient was admitted for exacerbation of idiopathic pulmonary fibrosis. HOSPITAL COURSE: Patient improved incredibly with 24 hours of steroids. Patient states she had a bronchial lavage in the past which showed lipids, history of vaping. She follows regularly with a offset plate maker in [place] who is currently working her up for this abnormal finding on bronchoscopy. She also states that they were discussing an open biopsy of the lung to look further; however, this was decided upon not being done. Because of her improvement on steroids and antibiotics alone, the decision was made to discharge her home on 01/14/2020 with follow-up with both primary care and pulmonology. She has upcoming appointments for both of them in the next several weeks. She'll be sent home with a steroid taper over 7 days an additional 5 days of oral antibiotics. The patient is currently on her home amount of oxygen has minimal wheezing and denies chest pain. She denies nausea, vomiting, fever, chills, abdominal pain, lightheadedness or dizziness. PAST MEDICAL HISTORY: Idiopathic pulmonary fibrosis SOCIAL HISTORY: Denies illicit drug use. Drinks alcohol socially every few weeks with friends. Active tobacco smoker smokes half a pack per day and does not want a nicotine patch. FAMILY HISTORY: History of idiopathic pulmonary fibrosis in the family ALLERGIES: Please see below. PHYSICAL EXAMINATION: VS: Please see below Constitutional: NAD, resting sitting up in bed ENT: Sclera are clear. Mucosa is moist. Respiratory: CTAB, fine crackles still present in lungs bilaterally. No respiratory distress. No use of accessory muscles. Cardiovascular: RRR S1 and S2 are normal, no murmur Gastrointestinal: Abdomen is soft, non distended, non tender, BS present. Musculoskeletal: No edema. No joint deformities. RUE 5/5, LUE 5/5, BLE 5/5 Neurologic: No focal neurological deficit. Mental Status: A&O x3, normal affect Skin: Warm, dry LABORATORY DATA: See below. IMAGING: CXR: Airspace opacities in both lungs, with improved aeration compared to the prior chest x-ray on 11/23/2019. MICROBIOLOGY: Please see below. ASSESSMENT: 49-year-old female with past medical history of idiopathic bone fibrosis admitted for shortness of breath resulting from acute exacerbation of her pulmonary fibrosis. Patient admitted for further medical management. PLAN: # Idiopathic pulmonary fibrosis / to exacerbation from ? underlying pneumonia. -Improved over 24 hours and is currently on home amount of O2 -Patient has no chest pain, increased SOB and is afebrile -Recommend f/u with PCP, offset plate maker -Discharged with tapering dose steroids, levofloxacin x 5 days, home meds. # CAP -WBC wnl, afebrile -Sputum sample unable to be given, Bcx NG 24 hours -Discharged with 5 days PO levaquin. -F/u with PCP and offset plate maker DISPOSITION: D/c home today with f/u arranged already for PCP, pulmonary TIME SPENT ON DISCHARGE: Greater than 30 minutes. Vital Signs/I&Os Vital Signs Date Time Temp Pulse Resp B/P (MAP) Pulse Ox O2 Delivery O2 Flow Rate FiO2 01/14/20 12:00 97.8 76 16 139/75 (96) 95 Nasal Cannula 3.0 I&O- Last 24 Hours up to 6 AM 01/14/20 06:00 Intake Total 1635 ml Output Total 1450 ml Balance 185 ml Laboratory Data Labs 24H Laboratory Tests 2 01/14/20 05:51: Nucleated Red Blood Cells % (auto) 0.0, Anion Gap 7L, Glomerular Filtration Rate > 60.0, Calcium Level 8.2L, Total Bilirubin 0.1#L, Aspartate Amino Transf (AST/SGOT) 35, Alanine Aminotransferase (ALT/SGPT) 30, Alkaline Phosphatase 90, Total Protein 5.8L, Albumin 2.7L, Albumin/Globulin Ratio 0.9L CBC/BMP Laboratory Tests 01/14/20 05:51 Microbiology Microbiology 01/12/20 Respiratory Virus Panel (PCR) (JAEL) - Final, Complete 01/12/20 Blood Culture - Preliminary, Resulted No growth after 24 hours . All specim... 01/12/20 Blood Culture - Preliminary, Resulted No growth after 24 hours . All specim... Discharge Medications Scheduled Amlodipine Besylate (Amlodipine Besylate) 5 Mg Tablet, 5 MG PO QHS, (Reported) Budesonide/Formoterol (Symbicort 80-4.5 Mcg Inhaler) 6.9 Gm Hfa.aer.ad, 2 PUFF INH BID, (Reported) Ergocalciferol (Vitamin D2) (Vitamin D2) 50,000 Units Cap, 50,000 UNITS PO 1XWK, (Reported) SATURDAY Fluoxetine Hcl (Fluoxetine HCl) 20 Mg Capsule, 20 MG PO BID, (Reported) Gabapentin (Gabapentin) 600 Mg Tablet, 1,200 MG PO TID, (Reported) Lactobacillus Acidophilus (Probiotic) 1 Each Capsule, 1 CAP PO BID, (Reported) MORNING AND AFTERNOON Levofloxacin (Levofloxacin) 500 Mg Tablet, 500 MG PO DAILY Morphine Sulfate (Morphine Sulfate ER) 30 Mg Tablet.er, 30 MG PO BID, (Reported) Oxcarbazepine (Oxcarbazepine) 150 Mg Tablet, 450 MG PO BID, (Reported) Pantoprazole Sodium (Pantoprazole Sodium) 40 Mg Tablet.dr, 40 MG PO QHS, (Reported) Pravastatin Sodium (Pravastatin Sodium) 40 Mg Tablet, 40 MG PO QHS, (Reported) Prednisone (Prednisone) 20 Mg Tablet, 60 MG PO DAILY Prednisone taper: 60 mg Po x 3 days, 40 mg PO x 3 days, 20 mg Po x 1 days Ropinirole HCl (Ropinirole HCl) 1 Mg Tablet, 1 MG PO QHS, (Reported) Scheduled PRN Acetaminophen (Tylenol Extra Strength) 500 Mg Tablet, 1,000 MG PO Q6H PRN for PAIN / FEVER, (Reported) Albuterol Sulfate (Ventolin Hfa) 18 Gm Hfa.aer.ad, 2 PUFFS INH QID PRN for SHORTNESS OF BREATH, (Reported) Oxycodone HCl (Oxycodone HCl) 5 Mg Tablet, 5 MG PO Q3HP PRN for PAIN, (Reported) Tizanidine HCl (Tizanidine HCl) 4 Mg Capsule, 4 MG PO QID PRN for MUSCLE SPASMS, (Reported) Allergies Coded Allergies: No Known Drug Allergies (Verified Allergy, Unknown, 01/13/20) Marla Burch MD Jan 14, 2020 16:47
[2020-01-15 14:12] LABS: BODY FLUID CULTURE Not indicated. (.); LEGIONELLA ANTIGEN URINE Negative (Negative); ORGANISM ID Not indicated. (.); SPECIMEN SOURCE Urine (.); URINE STREP PNEUMONIAE ANTIGEN Negative (Negative)
== END 2020-01-14 13:00 | disposition home or self-care (01) | DRG 196 ==
LOC: M ED 22:31 → M ED INP 01-13 02:21 → ENRESERV 01-13 09:28 → M PCU 01-13 09:50
PROVIDERS: ADMIT Family Medicine; ATTEND Internal Medicine
DX: J84.112 Idiopathic pulmonary fibrosis (principal); J18.9 Pneumonia, unspecified organism; F17.200 Nicotine dependence, unspecified, uncomplicated; Z79.899 Other long term (current) drug therapy

== ENCOUNTER → 2020-02-17 | Outpatient (CLI) | payer MEDICARE, BC, OTHER ==
[~2020-02-17] MED LIST changes: +ACET-897 PO; +LEVO500T3 PO; +PRED20TA PO
== END ==
LOC: M LABSMTC 14:03
DX: Z01.812 Encounter for preprocedural laboratory examination (principal); Z20.828 Contact with and (suspected) exposure to other viral communicable diseases

== ENCOUNTER 2020-05-04 00:07 | Inpatient (IN) | payer MEDICARE, BC, OTHER ==
[2020-05-04] VITALS (7 sets, daily range): BP systolic 112–140; BP diastolic 57–72
[~2020-05-04] VITALS: Ht 149.9 cm; Wt 73.0 kg
--- OUTSIDE RECORDS SUMMARY | 2020-05-04 00:12 | CCD | Summary of Care ---
Author Author [facility] Organization [facility] Address Unknown Phone Unavailable Care Team Providers Care Early Childhood Special Educator Name Role Phone Ivon Lau MD PCP Reason for Referral * Pain Medicine (Routine) Referred By Contact Referred To Contact Status Reason Specialty Diagnoses / Procedures Kiara Gamino NP [address] [place] [address] Email: [email or web address] Pain Medicine Diagnoses Neck pain on left side Scheduling Instructions Get Authorization for orders: Yes No Make Appointment for procedure: Yes No Encounter Details Care Team Description Date Type Department Kiara Gamino NP [address] [place] [address] Neck pain on left side; Pain management contract agreement 04/12/2020 Telemedicine [facility] [address] [place] [address] Allergies No Known Allergiesdocumented as of this encounter (statuses as of 04/12/2020) Medications End Date Status Medication Sig Dispensed Refills Start Date Active pravastatin (PRAVACHOL) Take 40 mg by 0 40 MG tablet mouth daily. Active ropinirole (REQUIP) 1 MG Take 1 mg by 0 tablet mouth nightly Active vitamin D Take 50,000 0 (ERGOCALCIFEROL) 11873 Units by units capsule mouth every 7 (seven) days Active fluoxetine (PROZAC) 20 MG Take 20 mg by 0 12/07 capsule mouth Two 9 Times Daily Active pantoprazole (PROTONIX) Take 40 mg by 0 40 MG tablet mouth daily Active Comp Air Compressor USE 0 Nebulizer DIRECTED 9 EVERY 8 HOURS Active Adult Mask Device USE 0 DIRECTED 9 EVERY 8 HOURS Active Clotrimazole-Betamethason Apply 0 06/0 e 1-0.05 % External Cream topically Two 9 (LOTRISONE) Times Daily To groin area Active BIOTIN PO Take by mouth 0 daily Active Probiotic Product Take by mouth 0 (PROBIOTIC PO) daily Active Budesonide-Formoterol Inhale 2 1 Inhaler 3 12/07 Fumarate 80-4.5 MCG/ACT puffs into 0 Inhalation Aerosol the lungs Two (SYMBICORT)Indications: Times Daily Wheezing Active Albuterol Sulfate HFA 108 Inhale 2 1 Inhaler 3 (90 Base) MCG/ACT puffs into 0 Inhalation Aerosol the lungs Solution (PROVENTIL every 6 (six) HFA)Indications: Wheezing hours as needed for Wheezing or Shortness of Breath Active hydrOXYzine HCl 10 MG Take 10 mg by 0 Oral Tablet (ATARAX) mouth Three times daily as needed for Itching 03/31/2021 Active Gabapentin 600 MG Oral Take 2 180 tablet 11 Tablet tablets by 0 (NEURONTIN)Indications: mouth Three Neck pain on left side times daily Active OXcarbazepine 150 MG Oral 3 tablets by 180 tablet 5 Tablet (TRILEPTAL) mouth twice a 0 day. 04/22/2020 Active Cyclobenzaprine HCl 5 MG Take 1 tablet 30 tablet 0 Oral Tablet (FLEXERIL) by mouth 1 Three times daily for 10 days 05/12/2020 Active Morphine Sulfate ER 30 MG Take 1 tablet 60 tablet 0 Oral Tablet Extended by mouth 1 Release (MS every 12 CONTIN)Indications: Neck (twelve) pain on left side, Pain hours , Max management contract Daily Dose: agreement 60 mg 04/12/2020 Discontinued tiZANidine HCl 4 MG Oral One capsule 120 capsule 11 0 Capsule (ZANAFLEX) by mouth TID 0 PRN for muscle spasms. May take an extra 4mg at night PRN. 04/12/2020 Discontinued oxyCODONE HCl 5 MG Oral Take 1 tablet 240 tablet 0 Tablet by mouth 0 (ROXICODONE)Indications: every 3 Neck pain on left side (three) hours as needed for Pain, Max Daily Dose: 8 tablets 04/12/2020 Discontinued (Reorder) Morphine Sulfate ER 30 MG Take 1 tablet 60 tablet 0 Oral Tablet Extended by mouth 0 Release (MS every 12 CONTIN)Indications: Neck (twelve) pain on left side, Pain hours , Max management contract Daily Dose: agreement 60 mg documented as of this encounter (statuses as of 04/12/2020) Active Problems Problem Noted Date Hyponatremia 10/25/2019 Anxiety 10/25/2019 Interstitial lung disease 10/25/2019 Respiratory failure 10/23/2019 Smoker 10/21/2019 Acute on chronic respiratory failure with hypoxia Essential hypertension 04/06/2019 Hyperlipidemia 04/06/2019 Chronic diastolic (congestive) heart failure 019 Sepsis 04/06/2019 Ground glass opacity present on imaging of lung 03/10 Right hip pain 06/03/2017 Trigeminal neuralgia 05/12/2012 Myofascial pain syndrome 05/12/2012 Mechanical complication of nervous system device, imp lant, and graft 05/12/2012 Occipital neuralgia 01/09/2012 documented as of this encounter (statuses as of 04/12/2020) Social History Date Tobacco Use Types Packs/Day Years Used Started: 05/14/1984 Current Every Day Smoker Cigarettes 0.5 30 Smokeless Tobacco: Never Used Comments: Currently smokes about 1/2 pac k a day, was vaping also for 6 years Drinks/Week oz/Week Comments Alcohol Use occasional Yes Sex Assigned at Date Recorded Not on file documented as of this encounter Last Filed Vital Signs Not on filedocumented in this encounter Progress Notes * Kiara Gamino NP - 04/12/2020 2:40 PM EST Subjective: Patient ID: Viridiana Colón is a 49 y.o. female. This is a telemedical visit. The patient was informed of the risks including sec urity breech, technological failure, inability to perform a comprehensive physic al exam which could delay or prevent an accurate diagnosis, and potential compli cations from treatment decisions rendered over a telemedical platform. The patie nt understands and consented to the use of tele-health services. Total time spent 10 minutes using audio and video HPI 49 y.o. female with PMH occipital neuralgia s/p C1-C2 paddle lead placement, Tri geminal neuralgia s/p microvascular decompression, myofascial pain syndrome of n chani and upper back. She follow-up after trigger point injections Into upper shoulders and trapezius muscles. Patient reports having a bout a wee k relief at 50%. In the past he tried Myobloc but developed symptoms in the rig ht arm. She used to have significant relief from ketamine however due to respiratory dif ficulties she is no longer candidate for ketamine. Today she reports having pain along bilateral trapezius and neck muscles. Pain is aching 7/10 on pain scale. Pain is associated with chronic headaches. Curre nt medications provide minimal relief. Viridiana has a past medical history of Arthritis, Depression, Hypertension, ILD (i nterstitial lung disease), and Occipital neuralgia. Viridiana has Occipital neuralgia; Trigeminal neuralgia; Myofascial pain syndrome; M echanical complication of nervous system device, implant, and graft; Right hip p ain; Acute on chronic respiratory failure with hypoxia; Essential hypertension; Hyperlipidemia; Chronic diastolic (congestive) heart failure; Sepsis; Ground gla ss opacity present on imaging of lung; Smoker; Respiratory failure; Hyponatremia ; Anxiety; and Interstitial lung disease on their problem list. Viridiana has a past surgical history that includes Neck surgery (10/2011); stimula tor implants (10/2011 ); Appendectomy; section; Hysterectomy; Oophorecto my; Cholecystectomy; neuroma removal; Colonoscopy; pr [facility] incl fluor gdnce d x w/cell washg spx (N/A, 04/06/2019); and pr right heart cath o2 saturation & cardiac output (N/A, 06/03/2019). Her family history includes Cancer in her maternal grandmother and mother; Hyper tension in her mother. Viridiana reports that she has been smoking cigarettes. She started smoking about 3 5 years ago. She has a 15.00 pack-year smoking history. She has never used smoke less tobacco. She reports current alcohol use. She reports that she does not use drugs. Viridiana has a current medication list which includes the following prescription(s) : adult mask, albuterol, biotin, budesonide-formoterol, clotrimazole-betamethaso ne, comp air compressor nebulizer, cyclobenzaprine, fluoxetine, gabapentin, hydr oxyzine, morphine sulfate er, oxcarbazepine, pantoprazole, pravastatin, probioti c product, ropinirole, and vitamin d. Current Outpatient Medications on File Prior to Visit Medication Sig Dispense Refill Adult Mask Device USE DIRECTED EVERY 8 HOURS 0 Albuterol Sulfate HFA 108 (90 Base) MCG/ACT Inhalation Aerosol Solution ( PROVENTIL HFA) Inhale 2 puffs into the lungs every 6 (six) hours as needed for Wheezing or Shortness of Breath 1 Inhaler 3 BIOTIN PO Take by mouth daily Budesonide-Formoterol Fumarate 80-4.5 MCG/ACT Inhalation Aerosol (SYMBICO RT) Inhale 2 puffs into the lungs Two Times Daily 1 Inhaler 3 Clotrimazole-Betamethasone 1-0.05 % External Cream (LOTRISONE) Apply topi sherri Two Times Daily To groin area Comp Air Compressor Nebulizer USE DIRECTED EVERY 8 HOURS 0 fluoxetine (PROZAC) 20 MG capsule Take 20 mg by mouth Two Times Daily 0 Gabapentin 600 MG Oral Tablet (NEURONTIN) Take 2 tablets by mouth Three t imes daily 180 tablet 11 hydrOXYzine HCl 10 MG Oral Tablet (ATARAX) Take 10 mg by mouth Three time s daily as needed for Itching OXcarbazepine 150 MG Oral Tablet (TRILEPTAL) 3 tablets by mouth twice a d ay. 180 tablet 5 pantoprazole (PROTONIX) 40 MG tablet Take 40 mg by mouth daily pravastatin (PRAVACHOL) 40 MG tablet Take 40 mg by mouth daily. Probiotic Product (PROBIOTIC PO) Take by mouth daily ropinirole (REQUIP) 1 MG tablet Take 1 mg by mouth nightly vitamin D (ERGOCALCIFEROL) 32888 units capsule Take 50,000 Units by mouth every 7 (seven) days [DISCONTINUED] Morphine Sulfate ER 30 MG Oral Tablet Extended Release (MS CONTIN) Take 1 tablet by mouth every 12 (twelve) hours , Max Daily Dose: 60 mg 60 tablet 0 [DISCONTINUED] oxyCODONE HCl 5 MG Oral Tablet (ROXICODONE) Take 1 tablet by mouth every 3 (three) hours as needed for Pain, Max Daily Dose: 8 tablets 24 0 tablet 0 [DISCONTINUED] tiZANidine HCl 4 MG Oral Capsule (ZANAFLEX) One capsule by mouth TID PRN for muscle spasms. May take an extra 4mg at night PRN. 120 capsul e 11 No current facility-administered medications on file prior to visit. Viridiana has No Known Allergies. Review of Systems Constitutional: Negative for chills and fatigue. Respiratory: Negative for chest tightness. Cardiovascular: Negative for chest pain and palpitations. Musculoskeletal: Positive for myalgias and neck pain. Psychiatric/Behavioral: Negative for sleep disturbance. Objective: The Drug Utilization Report below displays all of the controlled substance presc riptions, if any, that your patient has filled in the last twelve months. The in formation displayed on this report is compiled from pharmacy submissions to the Department, and accurately reflects the information as submitted by the pharmaci es. This report was requested by: Kiara Gamino | Reference #: [id number] Others' Prescriptions Patient Name: Viridiana Colón Date: 1970 Address: [address] [place] [address] Sex: Female Rx Written Rx Dispensed Drug Quantity Days Supply Prescriber Name Payment Method Dispenser 04/06/2020 04/09/2020 alprazolam 0.5 mg tablet 28 7 Jovani Lau MD Medicare [facility] Payment Method Medicare Dispenser [facility] 03/15/2020 03/19/2020 morphine sulf er 30 mg tablet 60 30 [facility] Medicare [facility] Payment Method Medicare Dispenser [facility] 03/09/2020 03/11/2020 alprazolam 0.5 mg tablet 120 30 Jovani Lau MD Medicare [facility] Payment Method Medicare Dispenser [facility] 02/16/2020 02/18/2020 oxycodone hcl 5 mg tablet 240 30 [facility] Medicare [facility] Payment Method Medicare Dispenser [facility] 02/16/2020 02/18/2020 morphine sulf er 30 mg tablet 60 30 [facility] Medicare [facility] Payment Method Medicare Dispenser [facility] 01/14/2020 01/19/2020 morphine sulf er 30 mg tablet 60 30 [facility] Medicare [facility] Payment Method Medicare Dispenser [facility] 01/14/2020 01/19/2020 oxycodone hcl 5 mg tablet 240 30 [facility] Medicare [facility] Payment Method Medicare Dispenser [facility] 12/17/2019 12/21/2019 morphine sulf er 30 mg tablet 60 30 [facility] harmacy Medicare [facility] Payment Method Medicare Dispenser [facility] 12/17/2019 12/21/2019 oxycodone hcl 5 mg tablet 240 30 [facility] Medicare [facility] Payment Method Medicare Dispenser [facility] 11/18/2019 11/21/2019 morphine sulf er 30 mg tablet 60 30 [facility] harmacy Medicare [facility] Payment Method Medicare Dispenser [facility] 11/18/2019 11/21/2019 oxycodone hcl 5 mg tablet 240 30 [facility] Medicare [facility] Payment Method Medicare Dispenser [facility] 10/19/2019 10/22/2019 morphine sulf er 30 mg tablet 60 30 [facility] harmacy Medicare [facility] Payment Method Medicare Dispenser [facility] 10/19/2019 10/22/2019 oxycodone hcl 5 mg tablet 240 30 [facility] Medicare [facility] Payment Method Medicare Dispenser [facility] 09/21/2019 09/23/2019 oxycodone hcl 5 mg tablet 240 30 Nigle Underwood () Medicare [facility] Payment Method Medicare Dispenser [facility] 09/21/2019 09/23/2019 morphine sulf er 30 mg tablet 60 30 Nigel Underwood (M D) Medicare [facility] Payment Method Medicare Dispenser [facility] 08/19/2019 08/23/2019 morphine sulf er 30 mg tablet 60 30 [facility] harmacy Medicare [facility] Payment Method Medicare Dispenser [facility] 08/19/2019 08/23/2019 oxycodone hcl 5 mg tablet 240 30 [facility] Medicare [facility] Payment Method Medicare Dispenser [facility] 07/17/2019 07/23/2019 oxycodone hcl 5 mg tablet 240 30 [facility] Medicare [facility] Payment Method Medicare Dispenser [facility] 07/17/2019 07/23/2019 morphine sulf er 30 mg tablet 60 30 [facility] Medicare [facility] Payment Method Medicare Dispenser [facility] 06/18/2019 06/22/2019 morphine sulf er 30 mg tablet 60 30 [facility] Medicare [facility] Payment Method Medicare Dispenser [facility] 06/18/2019 06/22/2019 oxycodone hcl 5 mg tablet 240 30 [facility] Medicare [facility] Payment Method Medicare Dispenser [facility] 05/20/2019 05/24/2019 morphine sulf er 30 mg tablet 60 30 Mehic, Fehid Medicare [facility] Payment Method Medicare Dispenser [facility] 05/20/2019 05/24/2019 oxycodone hcl 5 mg tablet 240 30 Mehic, Fehid [facility] Payment Method Medicare Dispenser [facility] 04/23/2019 04/25/2019 oxycodone hcl 5 mg tablet 240 30 [facility] Medicare [facility] Payment Method Medicare Dispenser [facility] 04/23/2019 04/24/2019 morphine sulf er 30 mg tablet 60 30 [facility] Medicare [facility] Payment Method Medicare Dispenser [facility] Physical Exam Not performed this is telehealth follow-up. Assessment: 49 y.o. female with PMH occipital neuralgia s/p C1-C2 paddle lead placement, Tri geminal neuralgia s/p microvascular decompression, myofascial pain syndrome of n chani and upper back Plan: 1. Will seek authorization for repeat TPI in near future. 2.We will continue current medication including gabapentin, Trileptal, morphine. We will change tizatidine to Flexeril since tizanidine is not effective anymore. 3. Continue home exercise program as tolerated. No attending physician present documented in this encounter Plan of Treatment Care Team Description Date Type Specialty Broderick Murray MD PhD [address] [facility] [address] [place] [phone] 06/21/2020 Telemedicine Pulmonology Order Schedule Name Type Priority Associated Diag noses Ordered: 04/12/2020 Orders Outpatient Routine Neck pain on le ft side Referral Health Maintenance Due Date Last Done Comments MMR Vaccines (1 of 1 - 1969 Standard series) Varicella Vaccines (1 of 1969 2 - 2-dose childhood series) Pneumococcal Vaccine: 1974 Pediatrics (0 to 5 Years) and At-Risk Patients (6 to 64 Years) (1 of 1 - PPSV23) DTaP,Tdap,and Td Vaccines 11/12/1975 (1 - Tdap) Cervical Cancer Screening 1989 5 years Breast Cancer Screening 2 2018 years Colon Cancer Screening 10 2018 yrs Influenza Vaccine 01/07/2020 Pneumococcal Vaccine: 65+ 2033 Years (1 of 1 - PPSV23) HIV Screening Completed 04/06/2019 HIB Vaccines Aged Out No longer eligible based on patient's age to complete this topic Hepatitis A Vaccines Aged Out No longer eligibl e based on patient's age to complete this topic Hepatitis B Vaccines Aged Out No longer eligibl e based on patient's age to complete this topic IPV Vaccines Aged Out No longer eligible based on patient's age to complete this topic documented as of this encounter Results Not on filedocumented in this encounter Visit Diagnoses Diagnosis Neck pain on left side Cervicalgia Pain management contract agreement documented in this encounter"
--- OUTSIDE RECORDS SUMMARY | 2020-05-04 00:13 | CCD | Continuity of Care Document ---
Author Author Viridiana BROWN DPM Organization Unknown Address [address] [place] [address], [address] [place] [address] Phone [phone] Care Team Providers Care Senior Storage Engineer Name Role Phone Judi Cheney, Ivon [facility] [phone] Problems Active Problems Provider Date Osteochondropathy Wesley Brown DPM Onset: 06/12/2018 Bunion Wesley Brown DPM Onset: 06/12/2018 Corns and callosities Wesley Brown DPM Onset: 06/12/2018 Social History Type Date Description Comments Sex Unknown ETOH Use Occasionally consumes wine 4 dri nks a week Tobacco Use Start: Unknown Patient is a current smoker, smo kes every day smoked 36 years, currently smokes e-cig daily Allergies, Adverse Reactions, Alerts Description No Known Drug Allergies Medications Active Medications SIG Qnty Indications Ordering Provide r Date Ammonium Lactate 12% Cream apply to feet daily 280units Wesley Brown DPM 06/09/2018 Meloxicam 7.5mg Tablets Unknown Morphine Sulfate ER 15mg Tablets ER Unknown Fluoxetine HCL 40mg Capsules Take One Capsule By Mouth Every Day Unknown Tizanidine HCL 4mg Capsules Unknown Ibuprofen 400mg Tablets Judi Cheney,Moid Hydrocodone-Acetaminophen 7.5-325mg Tablets Judi Cheney,Moid Clotrimazole/Betamethasone Dipropionate 1-0.05% Cream Judi Cheney,Moid Vitamin D (Ergocalciferol) 67229Egea Capsules Take 1 Capsule By Mouth Once A Week Unkno wn Pravastatin Sodium 40mg Tablets Take One Tablet By Mouth Every Day Unknown Ropinirole HCL 1mg Tablets Take 1 Tablet By Mouth AT Bedtime Unknown Ibuprofen 800mg Tablets Take 1 Tablet By Mouth Three Times A Day Unknown 00 Fluoxetine HCL 20mg Capsules Take 1 Capsule By Mouth Two Times A Day Unknown Morphine Sulfate ER 30mg Tablets E R Take One Tablet By Mouth Every 12 Hours Maximum Daily Dose 2 Tablets Unknown Pantoprazole Sodium 40mg Tablets D R Take One Tablet By Mouth Every Day Unknown Amlodipine Besylate 5mg Tablets Ivon Lau M.D. Oxycodone HCL 5mg Tablets Unknown Oxcarbazepine 150mg Tablets Unknown Gabapentin 600mg Tablets Unknown Immunizations Description No Information Available Vital Signs Date Vital Result Comment 04/05/2020 1:46pm Height 59 inches 4'11" Weight 170.00 lb BP Systolic 118 mmHg BP Diastolic 66 mmHg Heart Rate 79 /min BMI (Body Mass Index) 34.3 kg/m2 06/09/2018 2:33pm Height 59 inches 4'11" Weight 145.00 lb BP Systolic 114 mmHg BP Diastolic 82 mmHg Heart Rate 64 /min BMI (Body Mass Index) 29.3 kg/m2 Results Description No Information Available Procedures Description No Information Available Medical Devices Description No Information Available Encounters Description No Information Available Assessments Description No Information Available Plan of Treatment Future Appointment(s):* 06/07/2020 1:45 pm - Wesley Brown DPM at [facility] Functional Status Description No Information Available Mental Status Description No Information Available Referrals Description No Information Available
--- OUTSIDE RECORDS SUMMARY | 2020-05-04 00:13 | CCD | Summary of Care ---
Author Author [facility] Organization [facility] Address Unknown Phone Unavailable Care Team Providers Care Inserting Operator Name Role Phone Ivon Lau MD PCP Reason for Visit * Reason Comments Neck Pain Shoulder Pain * Pain Medicine (Routine) Referred By Contact Referred To Contact Status Reason Specialty Diagnoses / Procedures Kiara Gamino NP [address] [place] [address] Email: [email or web address] Authorized Pain Medicine Diagnoses Myofascial pain syndrome Encounter Details Care Team Description Date Type Department Anthony Swann MD [address] [place], [place] [id number] Myofascial pain (Primary Dx) 02/22/2020 Procedure visit [facility] [address] [place] [address] Allergies No Known Allergiesdocumented as of this encounter (statuses as of 02/23/2020) Medications End Date Status Medication Sig Dispensed Refills Start Date Active pravastatin (PRAVACHOL) Take 40 mg by 0 40 MG tablet mouth daily. Active ropinirole (REQUIP) 1 MG Take 1 mg by 0 tablet mouth nightly Active vitamin D Take 50,000 0 (ERGOCALCIFEROL) 21260 Units by units capsule mouth every 7 [...] EVERY 8 HOURS Active Clotrimazole-Betamethason Apply 0 e 1-0.05 % External Cream topically Two 9 (LOTRISONE) Times Daily To groin area Active OXcarbazepine 150 MG Oral TAKE THREE 180 tablet 5 Tablet (TRILEPTAL) TABLETS BY 0 MOUTH TWICE A DAY 03/19/2020 Active Gabapentin 600 MG Oral Take 2 180 tablet 3 Tablet (NEURONTIN) tablets by 0 mouth Three times daily Active tiZANidine HCl 4 MG Oral One capsule 120 capsule 11 0 Capsule (ZANAFLEX) by mouth TID 0 PRN for muscle spasms. May take an extra 4mg at night PRN. Active BIOTIN PO Take by mouth 0 [...] needed for Wheezing or Shortness of Breath 03/17/2020 Active Morphine Sulfate ER 30 MG Take 1 tablet 60 tablet 0 Oral Tablet Extended by mouth 0 Release (MS every 12 CONTIN)Indications: Neck (twelve) pain on left side hours , Max Daily Dose: 60 mg 03/17/2020 Active oxyCODONE HCl 5 MG Oral Take 1 tablet 240 tablet 0 Tablet by mouth 0 (ROXICODONE)Indications: every 3 Neck pain on left side (three) hours as needed for Pain, Max Daily Dose: 8 tablets Active hydrOXYzine HCl 10 MG Take 10 mg by 0 Oral Tablet (ATARAX) mouth Three times daily as needed for Itching documented as of this encounter (statuses as of 02/23/2020) Active Problems Problem Noted Date Hyponatremia 10/25/2019 [...] as of this encounter (statuses as of 02/23/2020) Social History Date Tobacco Use Types Packs/Day Years Used Started: 05/14/1984 Current Every Day Smoker Cigarettes 0.5 30 Smokeless Tobacco: Never Used Tobacco Cessation: Ready to Quit: No; Co unseling Given: No Comments: Currently smokes about 1/2 pack a day, was vaping also for 6 years Drinks/Week oz/Week Comments Alcohol Use occasional Yes Sex Assigned at Date Recorded Not on file Date Recorded COVID-19 Exposure Response 02/22/2020 10:24 AM EST In the last month, have you been in contact with No / Unsure someone who was confirmed or suspected to have Coronavirus / COVID-19? documented as of this encounter Last Filed Vital Signs Reading Time Taken Comments Vital Sign 133/74 02/22/2020 10:56 AM EST Blood Pressure 84 02/22/2020 10:56 AM EST Pulse 36.3 C (97.3 F) 02/22/2020 10:29 AM EST Temperature - - Respiratory Rate 92% 02/22/2020 10:29 AM EST Oxygen Saturation - - Inhaled Oxygen Concentration 74.8 kg (165 lb) 02/22/2020 10:29 AM EST Weight 149 cm (4' 10.66") 02/22/2020 10:29 AM EST Height 33.71 02/22/2020 10:29 AM EST Body Mass Index documented in this encounter Patient Instructions * Patient Instructions* Trupti Mclain 02/22/2020 10:30 AM EST [facility] Discharge Instructions Trigger Point Injection Your Physician has given you a trigger point injection (s). A trigger point is an area of tenderness related to muscle spasm. This procedure is done to reliev e spasm and pain, by injecting medication directly into the area. The local ane sthetic medication used will provide a temporary numbing effect. A steroid medi cation may be used to decrease inflammation and will work slowly over the next o ne to two weeks. After the injection you may notice the followin. Dizziness, particularly if several spots are injected 2. Increase tenderness in the area of your usual pain These effects are temporary and will diminish over time. For injection site tenderness, apply an ice pack to the injection site for 20 mi nute period, then remove for one hour. Repeat as necessary. Please notify the Pain Center if you notice: 1. Redness, swelling or drainage from the injection sites, or have a fever 2. Prolonged dizziness It is very important to continue your regular exercise program particularly stre tching exercises. Please contact [facility] at [phone] or through [facility] you have any questions or concerns regarding your treatment. documented in this encounter Progress Notes * Carlene Juares MD - 02/22/2020 10:30 AM EST Pre Procedure check list: Pre- procedure pain score: 8 Location of pain: neck and bilateral shoulder Name of Erp Analyst: Jeyson Antibiotics (within last 2 weeks):no Recent Illness (Including viral or bacteria infections): no Bleeding disorders: no Blood Thinners: no Surgery (within the last 6 weeks):no Vaccines (flu, hepatitis, meningitis, or pneumonia (within two weeks): no Eaten today: no Illegal Drugs: no : not applicable Diabetes: no Trigger Point Injection The history and physical of November 20, 2019 was reviewed with the patient. Time -out and procedure verification were performed. The risks and benefits of the p rocedure were explained. The patient appeared to understand and agreed to the pr ocedure. An informed consent was obtained. The patient was place in the seated p osition and the trigger points were marked in the trapeziusand rhomboids and lev ator scapulae muscle groups bilaterally. The area was prepped and draped in a routine manner. Using aseptic technique, a 25g 1.5 inch needle and 8 mL of 0.25 % bupivacaine with 80 mg of depo-medrol was injected following negative aspirati on at these levels. The procedure was completed without apparent difficulty or complications. The patient appeared to tolerate it well. Post Procedure checklist: Post procedure pain score: 6 Procedure supervised by Anthony Ortiz MD Jungjae Juares MD Pain Fellow I was present for the entire procedure and I agree with the resident's note. documented in this encounter Nursing Notes * Trupti Mclain - 02/22/2020 10:30 AM EST Recent illness- Pt was hospitalized beginning of Jan High fevers and SOB Antibiotics- no Seizure disorder-no If yes, when is the last time you had a seizure? Did you take your medication today? Vaccine (within 2 weeks) - no - no Did you eat today- yes Surgery within the last 6 weeks- yes Blood Thinners- no Diabetes- no Erp Analyst- yes Jeyson [phone] documented in this encounter Plan of Treatment Care Team Description Date Type Specialty 02/26/2020 Appointment Broderick Murray MD PhD [address] [facility] 2nd [address] [place] [address] 02/26/2020 Office Visit Pulmonology Kiara Gamino, APPLICATIONS CONSULTANT [address] [place] [address] 04/05/2020 Telemedicine Pain Medicine Health Maintenance Due Date Last Done Comments MMR Vaccines (1 of - 1969 Standard series) Varicella Vaccines (1 [...] filedocumented in this encounter Visit Diagnoses Diagnosis Myofascial pain - Primary Mylagia and myositis, unspecified documented in this encounter
--- OUTSIDE RECORDS SUMMARY | 2020-05-04 00:13 | CCD | Summary of Care ---
Author Author [facility] Organization [facility] Address Unknown Phone Unavailable Care Team Providers Care Merchant Miller Name Role Phone Ivon Lau MD PCP Reason for Visit * Reason Comments Follow-up Encounter Details Care Team Description Date Type Department Broderick Murray MD PhD [address] [facility] 2nd Floor [address] [place] [address] Dyspnea on exertion (Primary Dx); Interstitial lung disease; Smoker 02/26/2020 Office Visit [facility] [address] [place] [address] [address] [place] [address] Allergies No Known Allergiesdocumented as of this encounter (statuses as of 02/28/2020) Medications End Date Status Medication Sig Dispensed Refills Start Date Active pravastatin (PRAVACHOL) Take 40 mg by 0 40 MG tablet mouth daily. Active ropinirole (REQUIP) 1 MG Take 1 mg by 0 tablet mouth nightly Active vitamin D Take 50,000 0 (ERGOCALCIFEROL) 05861 Units by units capsule mouth every 7 [...] as of this encounter (statuses as of 02/28/2020) Active Problems Problem Noted Date Hyponatremia 10/25/2019 [...] as of this encounter (statuses as of 02/28/2020) Social History Date Tobacco Use Types Packs/Day Years Used Started: 05/14/1984 Current Every Day Smoker Cigarettes 0.5 30 Smokeless Tobacco: Never Used Comments: Currently smokes about 1/2 pac k a day, was vaping also for 6 years Drinks/Week oz/Week Comments Alcohol Use occasional Yes Sex Assigned at Date Recorded Not on file Date Recorded COVID-19 Exposure Response 02/26/2020 8:50 AM EST In the last month, have you been in contact with No / Unsure someone who was confirmed or suspected to have Coronavirus / COVID-19? documented as of this encounter Last Filed Vital Signs Reading Time Taken Comments Vital Sign 127/79 02/26/2020 9:02 AM EST Blood Pressure 86 02/26/2020 9:02 AM EST Pulse 37.1 C (98.7 F) 02/26/2020 9:02 AM EST Temperature 20 02/26/2020 9:02 AM EST Respiratory Rate 98% 02/26/2020 9:02 AM EST 4L w/ conserver Oxygen Saturation - - Inhaled Oxygen Concentration 74.8 kg (165 lb) 02/26/2020 9:02 AM EST stated wt Weight 149 cm (4' 10.66") 02/26/2020 9:02 AM EST Height 33.71 02/26/2020 9:02 AM EST Body Mass Index documented in this encounter Progress Notes * Broderick Murray MD PhD - 02/26/2020 9:00 AM EST REASON FOR VISIT/CHIEF COMPLAINT: Dyspnea ILD HISTORY OF PRESENTING ILLNESS/INTERIM HISTORY: - since her last clinic visit in mid-December 2019 she has been hospitalized ag ain locally at [facility] January 12 for 2 days for another exacerbation of her respiratory symptoms, was treated with antibiotics and ster oids with relatively rapid improvement, and discharged to complete a course of P rednisone for 1 week with subsequent improvement back to her baseline - she reports that she experienced another two episodes with fever which she anderson ated by herself at home with Tylenol and during the last episode she took antibi otics as well as steroids that had been left over from prior episode when they w ere previously prescribed by Dr. Dunham earlier this year - unfortunately, she still smokes cigarettes but reports that she has cut back t o currently 10 cigarettes per day - using 4 lpm with walking and 3 lpm at rest LTOT with no significant difference in walk distance since last visit here 2 months ago, limited by SOBOE - no sputum production - reports that she was tested for COVID-19 1.5 weeks ago when she received shots in her neck for chronic headaches/pain, and that she tested negative locally - has not jessica using the talc powder any more without discernable difference in h er breathing - reports that the episodes are always associated with fevers and tend to respon d to steroids - accompanied by her daughter to today's clinic visit PAST MEDICAL HISTORY: Occipital neuralgia Implant for chronic neuralgia 5-6 years ago Depression GERD Past surgeries: - occipital and trigeminal neuralgia with decompression surgeries - hysterectomy - appendectomy - cholecystectomy - C-sections Past Medical History: Diagnosis Date Arthritis Depression Hypertension ILD (interstitial lung disease) Occipital neuralgia Past Surgical History: Procedure Laterality Date APPENDECTOMY SECTION CHOLECYSTECTOMY COLONOSCOPY HYSTERECTOMY NECK SURGERY 10/2011 neuroma removal OOPHORECTOMY [place] BRNCHSC INCL FLUOR GDNCE DX W/CELL WASHG SPX N/A 04/06/2019 Procedure: BRONCHOSCOPY, RIGID/FLEX, W/WO FLUORO GUID W/WO CELL WASHING (SEP P STEPHANIE); Surgeon: Lakhwinder Dunham MD; Location: OR ENDO; Service: Endoscopy; Laterality: N/A; [place] RIGHT HEART CATH O2 SATURATION & CARDIAC OUTPUT N/A 06/03/2019 Procedure: RIGHT HEART CATH O2 SATURATION & CARDIAC OUTPUT [[id number]]; Surgeon: Lakhwinder Dunham MD; Location: OR [facility]; Service: Cardiology; Laterality: N/A; stimulator implants 10/2011 CURRENT MEDICATION: Current Outpatient Medications on File Prior to Visit Medication Sig Dispense Refill Albuterol Sulfate HFA 108 (90 Base) MCG/ACT [...] sherri Two Times Daily To groin area fluoxetine (PROZAC) 20 MG capsule Take 20 mg by mouth Two Times Daily 0 Gabapentin 600 MG Oral Tablet (NEURONTIN) Take 2 tablets by mouth Three t imes daily 180 tablet 3 hydrOXYzine HCl 10 MG Oral Tablet (ATARAX) Take 10 mg by mouth Three time s daily as needed for Itching Morphine Sulfate ER 30 MG Oral Tablet Extended Release (MS CONTIN) Take 1 tablet by mouth every 12 (twelve) hours , Max Daily Dose: 60 mg 60 tablet 0 OXcarbazepine 150 MG Oral Tablet (TRILEPTAL) TAKE THREE TABLETS BY MOUTH TWICE A DAY 180 tablet 5 oxyCODONE HCl 5 MG Oral Tablet (ROXICODONE) Take 1 tablet by mouth every 3 (three) hours as needed for Pain, Max Daily Dose: 8 tablets 240 tablet 0 pantoprazole (PROTONIX) 40 MG tablet Take 40 mg by mouth daily pravastatin (PRAVACHOL) 40 MG tablet Take 40 mg by mouth daily. Probiotic Product (PROBIOTIC PO) Take by mouth daily ropinirole (REQUIP) 1 MG tablet Take 1 mg by mouth nightly tiZANidine HCl 4 MG Oral Capsule (ZANAFLEX) One capsule by mouth TID PRN for muscle spasms. May take an extra 4mg at night PRN. 120 capsule 11 vitamin D (ERGOCALCIFEROL) 48719 units capsule Take 50,000 Units by mouth every 7 (seven) days Adult Mask Device USE DIRECTED EVERY 8 HOURS 0 Comp Air Compressor Nebulizer USE DIRECTED EVERY 8 HOURS 0 No current facility-administered medications on file prior to visit. ALLERGIES: NKA SOCIAL HISTORY: & FAMILY HISTORY: No new interim changes reported today The remainder of a limited 10-point review of systems was non-contributory/unrem arkable. PHYSICAL EXAMINATION: GENERAL: comfortable at rest, no acute distress VITAL SIGNS: Visit Vitals BP 127/79 Pulse 86 Temp 37.1 C (98.7 F) (Temporal) Resp (!) 20 Ht 1.49 m (4' 10.66") Wt 74.8 kg (165 lb) Comment: stated wt SpO2 98% Comment: 4L w/ conserver BMI 33.71 kg/m HEENT: no cervical or supraclavicular lymphadenopathy, no thyromegaly, moist ora l mucous membranes, no oral thrush or lesions, trachea mid-line CVS: heart sounds heard distant but normal/without added audible sounds, calves soft, non-tender, trace ankle edema RESPIRATORY: no digital clubbing, chest clear to auscultation today GIT/ABDOMEN: soft, obese, non-tender, no palpable masses/organomegaly, well-heal ed surgical scars from past procedures MUSCULOSKELETAL: mild DJD-related changes but no obvious joint swelling/ gross d eformities/ effusions or overlying redness SKIN: no obvious rashes NEUROLOGICAL: awake and alert with no gross focal neurological deficit PSYCHIATRIC: grossly normal affect, mood, mentation and orientation PERTINENT (INTERIM) INVESTIGATIONS: PFT's from 02/26/2020 with mild restrictive ventilatory defect and severely redu kary diffusing capacity. BAL 10/26/2019 The specimen consists of groups of reactive pneumocytesin a background of abundant macrophages. The differential cell count is: 85% macrophages, 9% neutrophils, 5% eosinophils and 1% lymphocytes. The Oil Red O stain shows abundant lipid laden macrophages. Autoimmune panel from 12/22/2019 unrevealing. She informed me that she had another chest x-ray at the outside facility during her hospitalization last month, but no further CT imaging of her chest during at admission. ASSESSMENT AND RECOMMENDATIONS/PLAN: Mrs. Colón is a 49 year old woman with recurrent episodes / flare-ups of pneumo nitis over the past 2 years with upper lung zone predominance on chest CT imagin g, preceded by fevers and coughing and complicated by hypoxemic respiratory fail ure. The episodes are responsive to steroids, with unrevealing microbiological w ork-up during past hospitalizations, and unrevealing autoimmune work-up, althoug h she has been left with residual impairment requiring chronic LTOT at 3-4 lpm w ith limited walk distance, which she is advised to titrate to target SpO2 92-95% . I think that these episodes arise in relation to some type of Smoke-induced/inha lational lung inflammation with recurent bouts of fevers and increased dyspnea a longside severely reduced gas transfer, and lipid-laden macrophages seen on her BAL, but unfortunately, she still smokes half a pack of cigarettes per day at is point, which I strongly advised her to stop completely alongside any other in halational exposures. In addition, she has a long-standing history of chronic pa in for which she has been on chronic opioids and has used marijuana in the past and for which she continues to follow with a local pain specialist in [place]. They used to treat her with Ketamine infusions in the past, but have not done s o lately due to concerns over her more tenuous respiratory status. She has stopp ed to use a talc-based powder, as we discussed during our last encounter as well as over the telephone in follow-up. She was once more admitted to [facility] in [place] for the same symptoms/flare-up which responded again to Cristan laurenne. Apart from tobacco it is possible that there may be other inhalational exposures involved, and I advised her to refrain from any inhalational substances includi ng cigarette smoke in order to stave off more irreversible lung damage and scarr ing. We once more went over previous discussion of the utility of a surgical lung bio psy, which I informed her would be associated with significant risk given her se verely reduced gas transfer and use of supplemental oxygen at 3-4 lpm and would be unlikely to change our management at this point, certainly not the recommenda tion to refrain from any inhalational hazards including cigarette smoking. Mrs. Colón voiced good understanding and wants to try quitting smoking complete ly at this point. I offered her nicotine replacement, which she declined at this point, and she carries a history of depression, so that we were reticent to use Chantix for smoking cessation. We also discussed possibly obtaining a second opinion on her lung disease, which she wants to think about at this point given that she had been rather insisting on obtaining a lung biopsy, which we did not think would provide much more info rmation but subject her to significant risks. I have scheduled a provisional telemedicine follow-up appointment in 4 months. I spent 25 minutes in [id number] consultation with the patient today of which at least half were spent counseling on the above outlined diagnosis and manageme nt plan with all questions answered to the patient's satisfaction. An additional 5 minutes were spent counseling on smoking cessation. documented in this encounter Plan of Treatment Care Team Description Date Type Specialty Kiara Gamino, JOSSUE [address] [place] [address] 04/05/2020 Telemedicine Pain Medicine Broderick Murray MD PhD [address] [facility] 2nd Floor [address] [place] [address] 06/27/2020 Telemedicine Pulmonology Health Maintenance Due Date Last Done Comments [...] filedocumented in this encounter Visit Diagnoses Diagnosis Dyspnea on exertion - Primary Other dyspnea and respiratory abnormali ty Interstitial lung disease Postinflammatory pulmonary fibrosis Smoker Tobacco use disorder documented in this encounter
--- OUTSIDE RECORDS SUMMARY | 2020-05-04 00:13 | CCD | Summary of Care ---
Author Author [facility] Organization [facility] Address Unknown Phone Unavailable Care Team Providers Care General Claims Agent Name Role Phone Ivon Lau MD PCP Encounter Details Care Team Description Date Type Department Ground glass opacity present on imaging of lung 02/26/2020 [facility] Pulmonary Function [facility] [address] [facility] [address] [place] [address] Allergies No Known Allergiesdocumented as of this encounter (statuses as of 03/01/2020) Medications End Date Status Medication Sig Dispensed Refills Start Date Active pravastatin (PRAVACHOL) Take 40 mg by 0 40 MG tablet mouth daily. Active ropinirole (REQUIP) 1 MG Take 1 mg by 0 tablet mouth nightly Active vitamin D Take 50,000 0 (ERGOCALCIFEROL) 12178 Units by units capsule mouth every 7 [...] as of this encounter (statuses as of 03/01/2020) Active Problems Problem Noted Date Hyponatremia 10/25/2019 [...] as of this encounter (statuses as of 03/01/2020) Social History Date Tobacco Use Types Packs/Day [...] Signs Not on filedocumented in this encounter Plan of Treatment Care Team Description Date Type Specialty Kiara Gamino, JOSSUE [address] [place] [address] 04/05/2020 Telemedicine Pain Medicine Broderick Murray MD PhD [address] [facility] 2nd Floor [address] [place] [address] 06/27/2020 Telemedicine Pulmonology Date/Time Name Type Priority Associated Diag noses 02/26/2020 8:10 AM EST Complete PFT's Pre & Post PFT Routine Grou nd glass opacity Bronchodilator present on imaging of (spirometry, lung lung volumes, DLCO) Health Maintenance Due Date Last Done Comments [...] this topic documented as of this encounter Procedures Comments Procedure Name Priority Date/Time Associated Diag nosis COMPLETE PFT'S, PRE & Routine 02/26/2020 Ground g lass opacity POST BRONCHODILATOR 8:10 AM EST present on imagin g of (SPIROMETRY, LUNG lung VOLUMES, D documented in this encounter Results Not on filedocumented in this encounter Visit Diagnoses Diagnosis Ground glass opacity present on imaging of lung documented in this encounter Administered Medications Action Date Dose Rate Site Medication Order MAR Action 02/26/2020 8:21 AM EST 2 puffs Inhaled albuterol (PROVENTIL HFA) inhaler 2 puff Given 2 puff, Inhalation, Once, Sat02/26/20 at 0845, For 1 dose, Shake the inhaler well before each spray., documented in this encounter
--- OUTSIDE RECORDS SUMMARY | 2020-05-04 00:13 | CCD | Continuity of Care Document ---
Author Author [facility]id[facility] Organization Unknown Address [address] [place] [address], [address] [place] [address] Phone [phone] Care Team Providers Care Province Archivist Name Role Phone Judi Cheney, Ivon [facility] [phone] Problems Active Problems Provider Date Osteochondropathy Wesley [...] 1-0.05% Cream Judi Cheney,Moid Vitamin D (Ergocalciferol) 09309Ivtc Capsules Take 1 Capsule By Mouth Once [...] Medical Devices Description No Information Available Encounters Type Date Location Provider Dx Diagnosis Office Visit 04/05/2020 1:45p [facility] Wesley Brown DPM M84.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 Functional Status Description No Information Available Mental Status Description No Information Available Referrals Description No Information Available
--- OUTSIDE RECORDS SUMMARY | 2020-05-04 00:15 | CCD ---
Author Author [facility] Organization [facility] Address Unknown Phone Unavailable Care Team Providers Care Senior Web Analyst Name Role Phone CARMEN LOCK MD Unavailable Unavailable CARMEN LOCK MD Unavailable Unavailable CARMEN LOCK MD Unavailable Unavailable CARMEN LOCK MD Unavailable Unavailable CARMEN LOCK MD Unavailable Unavailable CARMEN LOCK MD Unavailable Unavailable CARMEN LOCK MD Unavailable Unavailable CARMEN LOCK MD Unavailable Unavailable CARMEN LOCK MD Unavailable Unavailable CARMEN LOCK MD Unavailable Unavailable CARMEN LOCK MD Unavailable Unavailable CARMEN LOCK MD Unavailable Unavailable CARMEN LOCK MD Unavailable Unavailable CARMEN LOCK MD Unavailable Unavailable CARMEN LOCK MD Unavailable Unavailable CARMEN LOCK MD Unavailable Unavailable CARMEN LOCK MD Unavailable Unavailable CARMEN LOCK MD Unavailable Unavailable CARMEN LOCK MD Unavailable Unavailable CARMEN LOCK MD Unavailable Unavailable CARMEN LOCK MD Unavailable Unavailable CARMEN LOCK MD Unavailable Unavailable CARMEN LOCK MD Unavailable Unavailable CARMEN LOCK MD Unavailable Unavailable CARMEN LOCK MD Unavailable Unavailable CARMEN LOCK MD Unavailable Unavailable CARMEN LOCK MD Unavailable Unavailable CARMEN LOCK MD Unavailable Unavailable CARMEN LOCK MD Unavailable Unavailable ACRMEN LOCK MD Unavailable Unavailable CARMEN LOCK MD Unavailable Unavailable CARMEN LOCK MD Unavailable Unavailable CARMEN LOCK MD Unavailable Unavailable CARMEN LOCK MD Unavailable Unavailable CARMEN LOCK MD Unavailable Unavailable CARMEN LOCK MD Unavailable Unavailable CARMEN LOCK MD Unavailable Unavailable CARMEN LOCK MD Unavailable Unavailable CARMEN LOCK MD Unavailable Unavailable CARMEN LOCK MD Unavailable Unavailable CARMEN LOCK MD Unavailable Unavailable CARMEN LOCK MD Unavailable Unavailable CARMEN LOCK MD Unavailable Unavailable CARMEN LOCK MD Unavailable Unavailable CARMEN LOCK MD Unavailable Unavailable CARMEN LOCK MD Unavailable Unavailable CARMEN LOCK MD Unavailable Unavailable CARMEN LOCK MD Unavailable Unavailable CARMEN LOCK MD Unavailable Unavailable CARMEN LOCK MD Unavailable Unavailable CARMEN LOCK MD Unavailable Unavailable CARMEN LOCK MD Unavailable Unavailable CARMEN LOCK MD Unavailable Unavailable Sammie, L Jen INVESTMENT ASSOCIATE Unavailable Unavailable Sammie, L Jen INVESTMENT ASSOCIATE Unavailable Unavailable Sammie, L Jen INVESTMENT ASSOCIATE Unavailable Unavailable Sammie, L Jen INVESTMENT ASSOCIATE Unavailable Unavailable Sammie, L Jen INVESTMENT ASSOCIATE Unavailable Unavailable Sammie, L Jen INVESTMENT ASSOCIATE Unavailable Unavailable Sammie, L Jen INVESTMENT ASSOCIATE Unavailable Unavailable Sammie, L Jen INVESTMENT ASSOCIATE Unavailable Unavailable Sammie, L Jen INVESTMENT ASSOCIATE Unavailable Unavailable Sammie, L Jen INVESTMENT ASSOCIATE Unavailable Unavailable Sammie, L Jen INVESTMENT ASSOCIATE Unavailable Unavailable Sammie, L Jen INVESTMENT ASSOCIATE Unavailable Unavailable Sammie, L Jne INVESTMENT ASSOCIATE Unavailable Unavailable Sammie, L Jen INVESTMENT ASSOCIATE Unavailable Unavailable Sammie, L Jen INVESTMENT ASSOCIATE Unavailable Unavailable Sammie, L Jen INVESTMENT ASSOCIATE Unavailable Unavailable Sammie, L Jen INVESTMENT ASSOCIATE Unavailable Unavailable Sammie, L Jen INVESTMENT ASSOCIATE Unavailable Unavailable Sammie, L Jen INVESTMENT ASSOCIATE Unavailable Unavailable Sammie, L Jen INVESTMENT ASSOCIATE Unavailable Unavailable Sammie, L Jen INVESTMENT ASSOCIATE Unavailable Unavailable Sammie, L Jen INVESTMENT ASSOCIATE Unavailable Unavailable Sammie, L Jen INVESTMENT ASSOCIATE Unavailable Unavailable Sammie, L Jen INVESTMENT ASSOCIATE Unavailable Unavailable FEDORS, MARIO UX DESIGN LEAD Unavailable Unavailable FEDORS, MARIO UX DESIGN LEAD Unavailable Unavailable FEDORS, MARIO UX DESIGN LEAD Unavailable Unavailable FEDORS, MARIO UX DESIGN LEAD Unavailable Unavailable FEDORS, MARIO UX DESIGN LEAD Unavailable Unavailable FEDORS, MARIO UX DESIGN LEAD Unavailable Unavailable FEDORS, MARIO UX DESIGN LEAD Unavailable Unavailable FEDORS, MARIO UX DESIGN LEAD Unavailable Unavailable FEDORS, MARIO UX DESIGN LEAD Unavailable Unavailable FEDORS, MARIO UX DESIGN LEAD Unavailable Unavailable FEDORS, MARIO UX DESIGN LEAD Unavailable Unavailable FEDORS, MARIO UX DESIGN LEAD Unavailable Unavailable FEDORS, MARIO UX DESIGN LEAD Unavailable Unavailable FEDORS, MARIO UX DESIGN LEAD Unavailable Unavailable FEDORS, MARIO UX DESIGN LEAD Unavailable Unavailable FEDORS, MARIO UX DESIGN LEAD Unavailable Unavailable FEDORS, MARIO UX DESIGN LEAD Unavailable Unavailable FEDORS, MARIO UX DESIGN LEAD Unavailable Unavailable FEDORS, MARIO UX DESIGN LEAD Unavailable Unavailable FEDORS, MARIO UX DESIGN LEAD Unavailable Unavailable Fons, M Mary INVESTMENT ASSOCIATE Unavailable Unavailable Fons, M Mary INVESTMENT ASSOCIATE Unavailable Unavailable Fons, M Mary INVESTMENT ASSOCIATE Unavailable Unavailable Fons, M Mary INVESTMENT ASSOCIATE Unavailable Unavailable Fons, M Mary INVESTMENT ASSOCIATE Unavailable Unavailable Fons, M Mary INVESTMENT ASSOCIATE Unavailable Unavailable Fons, M Mary INVESTMENT ASSOCIATE Unavailable Unavailable Fons, M Mary INVESTMENT ASSOCIATE Unavailable Unavailable Fons, M Mary INVESTMENT ASSOCIATE Unavailable Unavailable Fons, M Mary INVESTMENT ASSOCIATE Unavailable Unavailable Fons, M Mary INVESTMENT ASSOCIATE Unavailable Unavailable Fons, M Mary INVESTMENT ASSOCIATE Unavailable Unavailable Fons, M Mary INVESTMENT ASSOCIATE Unavailable Unavailable Fons, M Mary INVESTMENT ASSOCIATE Unavailable Unavailable Fons, M Mary INVESTMENT ASSOCIATE Unavailable Unavailable Fons, M Mary INVESTMENT ASSOCIATE Unavailable Unavailable Fons, M Mary INVESTMENT ASSOCIATE Unavailable Unavailable Fons, M Mary INVESTMENT ASSOCIATE Unavailable Unavailable Fons, M Mary INVESTMENT ASSOCIATE Unavailable Unavailable Fons, M Mary INVESTMENT ASSOCIATE Unavailable Unavailable Fons, M Mary INVESTMENT ASSOCIATE Unavailable Unavailable Fons, M Mary INVESTMENT ASSOCIATE Unavailable Unavailable Fons, M Mary INVESTMENT ASSOCIATE Unavailable Unavailable Fons, M Mary INVESTMENT ASSOCIATE Unavailable Unavailable Fons, M Mary INVESTMENT ASSOCIATE Unavailable Unavailable Fons, M Mary INVESTMENT ASSOCIATE Unavailable Unavailable Fons, M Mary INVESTMENT ASSOCIATE Unavailable Unavailable Fons, M Mary INVESTMENT ASSOCIATE Unavailable Unavailable Fons, M Mary INVESTMENT ASSOCIATE Unavailable Unavailable Fons, M Mary INVESTMENT ASSOCIATE Unavailable Unavailable Fons, M Mary INVESTMENT ASSOCIATE Unavailable Unavailable Fons, M Mary INVESTMENT ASSOCIATE Unavailable Unavailable Fons, M Mary INVESTMENT ASSOCIATE Unavailable Unavailable Fons, M Mary INVESTMENT ASSOCIATE Unavailable Unavailable Fons, M Mary INVESTMENT ASSOCIATE Unavailable Unavailable Fons, M Mary INVESTMENT ASSOCIATE Unavailable Unavailable Fons, M Mary INVESTMENT ASSOCIATE Unavailable Unavailable Fons, M Mary INVESTMENT ASSOCIATE Unavailable Unavailable Fons, M Mary INVESTMENT ASSOCIATE Unavailable Unavailable Fons, M Mary INVESTMENT ASSOCIATE Unavailable Unavailable Fons, M Mary INVESTMENT ASSOCIATE Unavailable Unavailable Fons, M Mary INVESTMENT ASSOCIATE Unavailable Unavailable Fons, M Mary INVESTMENT ASSOCIATE Unavailable Unavailable Fons, M Mary INVESTMENT ASSOCIATE Unavailable Unavailable Fons, M Mary INVESTMENT ASSOCIATE Unavailable Unavailable Fons, M Mary INVESTMENT ASSOCIATE Unavailable Unavailable Fons, M Mary INVESTMENT ASSOCIATE Unavailable Unavailable Fons, M Mary INVESTMENT ASSOCIATE Unavailable Unavailable Fons, M Mary INVESTMENT ASSOCIATE Unavailable Unavailable Fons, M Mary INVESTMENT ASSOCIATE Unavailable Unavailable Fons, M Mary INVESTMENT ASSOCIATE Unavailable Unavailable Fons, M Mary INVESTMENT ASSOCIATE Unavailable Unavailable Fons, M Mary INVESTMENT ASSOCIATE Unavailable Unavailable Fons, M Mary INVESTMENT ASSOCIATE Unavailable Unavailable CARMEN LOCK MD Unavailable Unavailable CARMEN LOCK MD Unavailable Unavailable CARMEN LOCK MD Unavailable Unavailable CARMEN LOCK MD Unavailable Unavailable CARMEN LOCK MD Unavailable Unavailable CARMEN LOCK MD Unavailable Unavailable CARMEN LOCK MD Unavailable Unavailable CARMEN LOCK MD Unavailable Unavailable CARMEN LOCK MD Unavailable Unavailable CARMEN LOCK MD Unavailable Unavailable CARMEN LOCK MD Unavailable Unavailable CARMEN LOCK MD Unavailable Unavailable CARMEN LOCK MD Unavailable Unavailable CARMEN LOCK MD Unavailable Unavailable CARMEN LOCK MD Unavailable Unavailable CARMEN LOCK MD Unavailable Unavailable CARMEN LOCK MD Unavailable Unavailable CARMEN LOCK MD Unavailable Unavailable CARMEN LOCK MD Unavailable Unavailable CARMEN LOCK MD Unavailable Unavailable CARMEN LOCK MD Unavailable Unavailable CARMEN LOCK MD Unavailable Unavailable CARMEN LOCK MD Unavailable Unavailable CARMEN LOCK MD Unavailable Unavailable CARMEN LOCK MD Unavailable Unavailable CARMEN LOCK MD Unavailable Unavailable CARMEN LOCK MD Unavailable Unavailable CARMEN LOCK MD Unavailable Unavailable CARMEN LOCK MD Unavailable Unavailable CARMEN LOCK MD Unavailable Unavailable CARMEN LOCK MD Unavailable Unavailable CARMEN LOCK MD Unavailable Unavailable CARMEN LOCK MD Unavailable Unavailable CARMEN LOCK MD Unavailable Unavailable CARMEN LOCK MD Unavailable Unavailable CARMEN LOCK MD Unavailable Unavailable CARMEN LOCK MD Unavailable Unavailable CARMEN LOCK MD Unavailable Unavailable CARMEN LOCK MD Unavailable Unavailable CARMEN LOCK MD Unavailable Unavailable CARMEN LOCK MD Unavailable Unavailable CARMEN LOCK MD Unavailable Unavailable CARMEN LOCK MD Unavailable Unavailable CARMEN LOCK MD Unavailable Unavailable CARMEN LOCK MD Unavailable Unavailable CARMEN LOCK MD Unavailable Unavailable CARMEN LOCK MD Unavailable Unavailable CARMEN LOCK MD Unavailable Unavailable CARMEN LOCK MD Unavailable Unavailable CARMEN LOCK MD Unavailable Unavailable CARMEN LOCK MD Unavailable Unavailable CARMEN LOCK MD Unavailable Unavailable CARMEN LOCK MD Unavailable Unavailable ALIASES , DEFAULT / GENERIC / UNKNOWN PROVIDER * Unavailable Unavailable ALIASES , DEFAULT / GENERIC / UNKNOWN PROVIDER * Unavailable Unavailable ALIASES , DEFAULT / GENERIC / UNKNOWN PROVIDER * Unavailable Unavailable ALIASES , DEFAULT / GENERIC / UNKNOWN PROVIDER * Unavailable Unavailable ALIASES , DEFAULT / GENERIC / UNKNOWN PROVIDER * Unavailable Unavailable ALIASES , DEFAULT / GENERIC / UNKNOWN PROVIDER * Unavailable Unavailable ALIASES , DEFAULT / GENERIC / UNKNOWN PROVIDER * Unavailable Unavailable ALIASES , DEFAULT / GENERIC / UNKNOWN PROVIDER * Unavailable Unavailable ALIASES , DEFAULT / GENERIC / UNKNOWN PROVIDER * Unavailable Unavailable ALIASES , DEFAULT / GENERIC / UNKNOWN PROVIDER * Unavailable Unavailable ALIASES , DEFAULT / GENERIC / UNKNOWN PROVIDER * Unavailable Unavailable ALIASES , DEFAULT / GENERIC / UNKNOWN PROVIDER * Unavailable Unavailable ALIASES , DEFAULT / GENERIC / UNKNOWN PROVIDER * Unavailable Unavailable ALIASES , DEFAULT / GENERIC / UNKNOWN PROVIDER * Unavailable Unavailable ALIASES , DEFAULT / GENERIC / UNKNOWN PROVIDER * Unavailable Unavailable ALIASES , DEFAULT / GENERIC / UNKNOWN PROVIDER * Unavailable Unavailable ALIASES , DEFAULT / GENERIC / UNKNOWN PROVIDER * Unavailable Unavailable ALIASES , DEFAULT / GENERIC / UNKNOWN PROVIDER * Unavailable Unavailable ALIASES , DEFAULT / GENERIC / UNKNOWN PROVIDER * Unavailable Unavailable ALIASES , DEFAULT / GENERIC / UNKNOWN PROVIDER * Unavailable Unavailable ALIASES , DEFAULT / GENERIC / UNKNOWN PROVIDER * Unavailable Unavailable ALIASES , DEFAULT / GENERIC / UNKNOWN PROVIDER * Unavailable Unavailable ALIASES , DEFAULT / GENERIC / UNKNOWN PROVIDER * Unavailable Unavailable ALIASES , DEFAULT / GENERIC / UNKNOWN PROVIDER * Unavailable Unavailable ALIASES , DEFAULT / GENERIC / UNKNOWN PROVIDER * Unavailable Unavailable ALIASES , DEFAULT / GENERIC / UNKNOWN PROVIDER * Unavailable Unavailable ALIASES , DEFAULT / GENERIC / UNKNOWN PROVIDER * Unavailable Unavailable ALIASES , DEFAULT / GENERIC / UNKNOWN PROVIDER * Unavailable Unavailable ALIASES , DEFAULT / GENERIC / UNKNOWN PROVIDER * Unavailable Unavailable ALIASES , DEFAULT / GENERIC / UNKNOWN PROVIDER * Unavailable Unavailable ALIASES , DEFAULT / GENERIC / UNKNOWN PROVIDER * Unavailable Unavailable ALIASES , DEFAULT / GENERIC / UNKNOWN PROVIDER * Unavailable Unavailable ALIASES , DEFAULT / GENERIC / UNKNOWN PROVIDER * Unavailable Unavailable ALIASES , DEFAULT / GENERIC / UNKNOWN PROVIDER * Unavailable Unavailable ALIASES , DEFAULT / GENERIC / UNKNOWN PROVIDER * Unavailable Unavailable ALIASES , DEFAULT / GENERIC / UNKNOWN PROVIDER * Unavailable Unavailable ALIASES , DEFAULT / GENERIC / UNKNOWN PROVIDER * Unavailable Unavailable ALIASES , DEFAULT / GENERIC / UNKNOWN PROVIDER * Unavailable Unavailable ALIASES , DEFAULT / GENERIC / UNKNOWN PROVIDER * Unavailable Unavailable ALIASES , DEFAULT / GENERIC / UNKNOWN PROVIDER * Unavailable Unavailable ALIASES , DEFAULT / GENERIC / UNKNOWN PROVIDER * Unavailable Unavailable ALIASES , DEFAULT / GENERIC / UNKNOWN PROVIDER * Unavailable Unavailable ALIASES , DEFAULT / GENERIC / UNKNOWN PROVIDER * Unavailable Unavailable SAMANTHA, Isaias CASAS MD Unavailable Unavailable SAMANTHA, Isaias CASAS MD Unavailable Unavailable SAMANTHA, Isaias CASAS MD Unavailable Unavailable SAMANTHA, Isaias CASAS MD Unavailable Unavailable SAMANTHA, Isaias CASAS MD Unavailable Unavailable SAMANTHA, Isaias CASAS MD Unavailable Unavailable SAMANTHA, Isaias CASAS MD Unavailable Unavailable SAMANTHA, Isaias CASAS MD Unavailable Unavailable SAMANTHA, Isaias CASAS MD Unavailable Unavailable SAMANTHA, Isaias CASAS MD Unavailable Unavailable SAMANTHA, Isaias CASAS MD Unavailable Unavailable SAMANTHA, Isaias CASAS MD Unavailable Unavailable SAMANTHA, Isaias CASAS MD Unavailable Unavailable SAMANTHA, Isaias CASAS MD Unavailable Unavailable SAMANTHA, Isaias CASAS MD Unavailable Unavailable SAMANTHA, Isaias CASAS MD Unavailable Unavailable SAMANTHA, Isaias CASAS MD Unavailable Unavailable SAMANTHAIsaias MD Unavailable Unavailable SAMANTHA, Isaias CASAS MD Unavailable Unavailable SAMANTHAIsaias MD Unavailable Unavailable SAMANTHAIsaias MD Unavailable Unavailable SAMANTHAIsaias MD Unavailable Unavailable SAMANTHAIsaias MD Unavailable Unavailable SAMANTHA, Isaias CASAS MD Unavailable Unavailable SAMANTHA, Isaias CASAS MD Unavailable Unavailable SAMANTHA, Isaias CASAS MD Unavailable Unavailable SAMANTHA, Isaias CASAS MD Unavailable Unavailable SAMANTHAIsaias MD Unavailable Unavailable SAMANTHAIsaias MD Unavailable Unavailable SAMANTHAIsaias MD Unavailable Unavailable SAMANTHAIsaias MD Unavailable Unavailable SAMANTHA, Isaias CASAS MD Unavailable Unavailable SAMANTHA, Isaias CASAS MD Unavailable Unavailable SAMANTHA, Isaias CASAS MD Unavailable Unavailable SAMANTHA, Isaias CASAS MD Unavailable Unavailable SAMANTHAIsaias MD Unavailable Unavailable SAMANTHAIsaias MD Unavailable Unavailable SAMANTHAIsaias MD Unavailable Unavailable SAMANTHAIsaias MD Unavailable Unavailable SAMANTHA, Isaias CASAS MD Unavailable Unavailable SAMANTHA, Isaias CASAS MD Unavailable Unavailable SAMANTHA, Isaias CASAS MD Unavailable Unavailable SAMANTHA, Isaias CASAS MD Unavailable Unavailable SAMANTHA, Isaias CASAS MD Unavailable Unavailable SAMANTHAIsaias MD Unavailable Unavailable SAMANTHA, Isaias CASAS MD Unavailable Unavailable SAMANTHA, Isaias CASAS MD Unavailable Unavailable SAMANTHAIsaias MD Unavailable Unavailable OUEIDA, ZAHER Unavailable Unavailable OUEIDA, ZAHER Unavailable Unavailable OUEIDA, ZAHER Unavailable Unavailable OUEIDA, ZAHER Unavailable Unavailable Andrzej THAYER MD Unavailable Unavailable Andrzej THAYER MD Unavailable Unavailable Andrzej THAYER MD Unavailable Unavailable Andrzej THAYER MD Unavailable Unavailable Andrzej THAYER MD Unavailable Unavailable Ольга JIMÉNEZ Unavailable Unavailable Thakkar, Betsey MD Unavailable Unavailable Thakkar, Betsey MD Unavailable Unavailable Thakkar, Betsey MD Unavailable Unavailable Thakkar, Betsey MD Unavailable Unavailable Thakkar, Betsey MD Unavailable Unavailable Thakkar, Betsey MD Unavailable Unavailable Thakkar, Betsey MD Unavailable Unavailable Thakkar, Betsey MD Unavailable Unavailable Thakkar, Betsey MD Unavailable Unavailable Thakkar, Betsey MD Unavailable Unavailable Thakkar, Betsey MD Unavailable Unavailable Thakkar, Betsey MD Unavailable Unavailable Thakkar, Betsey MD Unavailable Unavailable Thakkar, Betsey MD Unavailable Unavailable Thakkar, Betsey MD Unavailable Unavailable Thakkar, Betsey MD Unavailable Unavailable Thakkar, Betsey MD Unavailable Unavailable Thakkar, Betsey MD Unavailable Unavailable Thakkar, Betsey MD Unavailable Unavailable Thakkar, Betsey MD Unavailable Unavailable Thakkar, Betsey MD Unavailable Unavailable Thakkar, Betsey MD Unavailable Unavailable Thakkar, Betsey MD Unavailable Unavailable Thakkar, Betsey MD Unavailable Unavailable Thakkar, Betsey MD Unavailable Unavailable Thakkar, Betsey MD Unavailable Unavailable Thakkar, Betsey MD Unavailable Unavailable Thakkar, Betsey MD Unavailable Unavailable Thakkar, Betsey MD Unavailable Unavailable Thakkar, Betsey MD Unavailable Unavailable Thakkar, Betsey MD Unavailable Unavailable Thakkar, Betsey MD Unavailable Unavailable Estrellita DOYLE MD Unavailable Unavailable Estrellita DOYLE MD Unavailable Unavailable SAVICIEstrellita MD Unavailable Unavailable SAVICIEstrellita MD Unavailable Unavailable SAVICIEstrellita MD Unavailable Unavailable Estrellita DOYLE MD Unavailable Unavailable Estrellita DOYLE MD Unavailable Unavailable PARESHICIEstrellita MD Unavailable Unavailable Estrellita DOYLE MD Unavailable Unavailable Estrellita DOYLE MD Unavailable Unavailable Estrellita DOYLE MD Unavailable Unavailable Estrellita DOYLE MD Unavailable Unavailable Estrellita DOYLE MD Unavailable Unavailable Estrellita DOYLE MD Unavailable Unavailable Estrellita DOYLE MD Unavailable Unavailable Estrellita DOYLE MD Unavailable Unavailable Estrellita DOYLE MD Unavailable Unavailable Estrellita DOYLE MD Unavailable Unavailable Estrellita DOYLE MD Unavailable Unavailable SAVICI, Estrellita STOUT MD Unavailable Unavailable SAVICI, Estrellita STOUT MD Unavailable Unavailable SAVICI, Estrellita BREWERA Unavailable Unavailable SAVICI, Estrellita BREWERA Unavailable Unavailable SAVICI, Estrellita BREWERA Unavailable Unavailable SAVICI, Estrellita BREWERA Unavailable Unavailable SAVICI, Estrellita BREWERA Unavailable Unavailable SAVICI, Estrellita BREWERA Unavailable Unavailable SAVICI, Estrellita BREWERA Unavailable Unavailable SAVICI, A GIRISH Unavailable Unavailable SAVICI, Estrellita BREWERA Unavailable Unavailable SAVICI, Estrellita BREWERA MD Unavailable Unavailable SAVICI, Estrellita BREWERA MD Unavailable Unavailable SAVICI, A GIRISH MD Unavailable Unavailable SAVICI, Estrellita BREWERA Unavailable Unavailable SAVICI, A GIRISH MD Unavailable Unavailable SAVICI, A GIRISH MD Unavailable Unavailable SAVICI, A GIRISH Unavailable Unavailable SAVICI, Estrellita BREWERA Unavailable Unavailable SAVICI, Estrellita STOUT MD Unavailable Unavailable SAVICI, Estrellita STOUT MD Unavailable Unavailable SAVICI, Estrellita STOUT MD Unavailable Unavailable SAVICI, Estrellita STOUT MD Unavailable Unavailable SAVICI, Estrellita STOUT MD Unavailable Unavailable SAVICI, Estrellita STOUT MD Unavailable Unavailable SAVICI, Estrellita STOUT MD Unavailable Unavailable SAVICI, Estrellita STOUT MD Unavailable Unavailable SAVICI, Estrellita STOUT MD Unavailable Unavailable SAVICI, Estrellita STOUT MD Unavailable Unavailable SAVICI, Estrellita STOUT MD Unavailable Unavailable SAVICI, Estrellita STOUT MD Unavailable Unavailable SAVICI, Estrellita STOUT MD Unavailable Unavailable SAVICI, Estrellita STOUT MD Unavailable Unavailable Tricia BENAVIDEZ MD Unavailable Unavailable Tricia BENAVIDEZ MD Unavailable Unavailable Tricia BENAVIDEZ MD Unavailable Unavailable Tricia BENAVIDEZ MD Unavailable Unavailable Tricia BENAVIDEZ MD Unavailable Unavailable Tricia BENAVIDEZ MD Unavailable Unavailable Tricia BENAVIDEZ MD Unavailable Unavailable Tricia BENAVIDEZ MD Unavailable Unavailable Tricia BENAVIDEZ MD Unavailable Unavailable Tricia BENAVIDEZ MD Unavailable Unavailable Tricia BENAVIDEZ MD Unavailable Unavailable Tricia BENAVIDEZ MD Unavailable Unavailable Tricia BENAVIDEZ MD Unavailable Unavailable Tricia BENAVIDEZ MD Unavailable Unavailable Tricia BENAVIDEZ MD Unavailable Unavailable Tricia BENAVIDEZ MD Unavailable Unavailable Tricia BENAVIDEZ MD Unavailable Unavailable Gerry Lau MD Unavailable Unavailable Gerry Lau MD Unavailable Unavailable Gerry Lau MD Unavailable Unavailable Gerry Lau MD Unavailable Unavailable Gerry Lau MD Unavailable Unavailable Lau, Sarah Moid MD Unavailable Unavailable Gerry Lau Unavailable Unavailable Lau, Sarah Moid MD Unavailable Unavailable Lau, Sarah Moid MD Unavailable Unavailable LauShereeul Moid Unavailable Unavailable Lau Sarah Moid MD Unavailable Unavailable Lau, Sarah Moid MD Unavailable Unavailable Lau, Sarah Moid MD Unavailable Unavailable Lau, Sarah Moid MD Unavailable Unavailable Lau, Sarah Moid MD Unavailable Unavailable Lau, Sarah Moid MD Unavailable Unavailable Lau, Sarah Moid MD Unavailable Unavailable Lau, Sarah Moid MD Unavailable Unavailable Lau, Sarah Moid MD Unavailable Unavailable Lau, Sarah Moid MD Unavailable Unavailable Lau, Sarah Moid MD Unavailable Unavailable Lau, Sarah Moid MD Unavailable Unavailable Lau, Sarah Moid MD Unavailable Unavailable Lau, Sarah Moid MD Unavailable Unavailable Lau Sarah Moid MD Unavailable Unavailable Lau, Sarah Moid MD Unavailable Unavailable Lau, Sarah Moid MD Unavailable Unavailable Lau, Sarah Moid MD Unavailable Unavailable Lau, Sarah Moid MD Unavailable Unavailable Lau, Sarah Moid MD Unavailable Unavailable Lau, Sarah Moid MD Unavailable Unavailable Lau, Sarah Moid MD Unavailable Unavailable Lau, Sarah Moid MD Unavailable Unavailable Lau, Sarah Moid MD Unavailable Unavailable Lau, Sarah Moid MD Unavailable Unavailable LauShereeul Moid MD Unavailable Unavailable Sarah Lau Moid MD Unavailable Unavailable Lau Sarah Moid MD Unavailable Unavailable Lau, Sarah Moid MD Unavailable Unavailable Lau, Sarah Moid MD Unavailable Unavailable LauShereeul Moid MD Unavailable Unavailable LauShereeul Moid MD Unavailable Unavailable LauShereeul Moid MD Unavailable Unavailable Lau, Sarah Moid MD Unavailable Unavailable Lau, Sarah Moid MD Unavailable Unavailable Lau, Sarah Moid MD Unavailable Unavailable Lau, Sarah Moid MD Unavailable Unavailable Lau, Sarah Moid MD Unavailable Unavailable LauShereeul Moid MD Unavailable Unavailable LauShereeul Moid MD Unavailable Unavailable Lau, Sarah Moid MD Unavailable Unavailable Lau, Sarah Moid MD Unavailable Unavailable Lau, Sarah Moid MD Unavailable Unavailable Lau, Sarah Moid MD Unavailable Unavailable Lau, Sarah Moid MD Unavailable Unavailable Lau, Sarah Moid MD Unavailable Unavailable Lau, Sraah Moid MD Unavailable Unavailable Gerry Lau MD Unavailable Unavailable Gerry Lau MD Unavailable Unavailable Gerry Lau MD Unavailable Unavailable Gerry Lau MD Unavailable Unavailable Gerry Lau MD Unavailable Unavailable Gerry Lau MD Unavailable Unavailable Gerry Lau MD Unavailable Unavailable Gerry Lau MD Unavailable Unavailable Felicita Randolph MD Unavailable Unavailable William Randolphjtech Unavailable Unavailable iWlliam Randolphjtech Unavailable Unavailable SlecathrynkaWilliamjtech Unavailable Unavailable SlecathrynkaWilliamjtech Unavailable Unavailable SlecathrynkaWilliamjtech Unavailable Unavailable SlecathrynkaWilliamjtech Unavailable Unavailable NimokaWilliamjtech Unavailable Unavailable SlecathrynkaWilliamjtech Unavailable Unavailable William Randolphjtech Unavailable Unavailable William Randolphjtech Unavailable Unavailable SleWilliam rodriguezjtech Unavailable Unavailable William Randolphjtech Unavailable Unavailable William Randolphjtech Unavailable Unavailable Stevie Randolphtech Unavailable Unavailable SleWilliam rodriguezjtech Unavailable Unavailable William Randolphjtech Unavailable Unavailable William Randolphjtech Unavailable Unavailable William Randolphjtech Unavailable Unavailable William Randolphjtech Unavailable Unavailable William Randolphjtech Unavailable Unavailable William Randolphjtech Unavailable Unavailable SleWilliam rodriguezjtech Unavailable Unavailable William Randolphjtech Unavailable Unavailable SleWilliam rodriguezjtech Unavailable Unavailable William Randolphjtech Unavailable Unavailable William Randolphjtech Unavailable Unavailable William Randolphjtech Unavailable Unavailable SlecathrynkaWilliamjtech Unavailable Unavailable SlecathrynkaWilliamjtech Unavailable Unavailable SlecathrynkaWilliamjtech Unavailable Unavailable SlecathrynkaWilliamjtech Unavailable Unavailable William Randolphjtech Unavailable Unavailable William Randolphjtech Unavailable Unavailable William Randolphjtech Unavailable Unavailable SlecathrynkaWilliamjtech Unavailable Unavailable SleWilliam rodriguezjtech Unavailable Unavailable SlezkaWilliamjtech Unavailable Unavailable SleWilliam rodriguezjtech Unavailable Unavailable William Randolphjtech Unavailable Unavailable SleWilliam rodriguezjtech Unavailable Unavailable SlezkaWilliamjtech MD Unavailable Unavailable Felicita Randolph MD Unavailable Unavailable Felicita Randolph MD Unavailable Unavailable Felicita Randolph MD Unavailable Unavailable Felicita Randolph MD Unavailable Unavailable Felicita Randolph MD Unavailable Unavailable SleFelicita rodriguez MD Unavailable Unavailable Felicita Randolph MD Unavailable Unavailable Felicita Randolph MD Unavailable Unavailable Felicita Randolph MD Unavailable Unavailable Felicita Randolph MD Unavailable Unavailable Felicita Randolph MD Unavailable Unavailable Felicita Randolph MD Unavailable Unavailable SleFelicita rodriguez MD Unavailable Unavailable SleFelicita rodriguez MD Unavailable Unavailable Felicita Randolph MD Unavailable Unavailable Felicita Randolph MD Unavailable Unavailable Suzan BROWN DPM Unavailable Unavailable Suzan BROWN DPM Unavailable Unavailable Suzan BROWN DPM Unavailable Unavailable Suzan BROWN DPM Unavailable Unavailable Suzan BROWN DPM Unavailable Unavailable Suzan BROWN DPM Unavailable Unavailable Suzan BROWN DPM Unavailable Unavailable Suzan BROWN DPM Unavailable Unavailable Suzan BROWN DPM Unavailable Unavailable Suzan BROWN DPM Unavailable Unavailable STEPHANIE R ANTONIO DPM Unavailable Unavailable STEPHANIE R ANTONIO DPM Unavailable Unavailable Suzan BROWN DPM Unavailable Unavailable STEPHANIE R ANTONIO DPM Unavailable Unavailable STEPHANIE R ANTONIO DPM Unavailable Unavailable STEPHANIE R ANTONIO DPM Unavailable Unavailable STEPHANIE R ANTONIO DPM Unavailable Unavailable STEPHANIE R ANTONIO DPM Unavailable Unavailable STEPHANIE R ANTONIO DPM Unavailable Unavailable STEPHANIE R ANTONIO DPM Unavailable Unavailable STEPHANIE R ANTONIO DPM Unavailable Unavailable STEPHANIE R ANTONIO DPM Unavailable Unavailable STEPHANIE R ANTONIO DPM Unavailable Unavailable STEPHANIE R ANTONIO DPM Unavailable Unavailable STEPHANIE R ANTONIO DPM Unavailable Unavailable STEPHANIE R ANTONIO DPM Unavailable Unavailable STEPHANIE R ANTONIO DPM Unavailable Unavailable MAJTOÑO R ANTONIO DPM Unavailable Unavailable STEPHANIE R ANTONIO DPM Unavailable Unavailable STEPHANIE R ANTONIO DPM Unavailable Unavailable Ольга ALMANZA MD Unavailable Unavailable Ольга ALMANZA MD Unavailable Unavailable Ольга ALMANZA MD Unavailable Unavailable Ольга ALMANZA MD Unavailable Unavailable Ольга ALMANZA MD Unavailable Unavailable Ольга ALMANZA MD Unavailable Unavailable Ольга ALMANZA MD Unavailable Unavailable ISHMAEL LEI [id number] Unavailable Unavailable OLIMPIA REED MD Unavailable Unavailable OLIMPIA REED MD Unavailable Unavailable OLIMPIA REED MD Unavailable Unavailable OLIMPIA REED MD Unavailable Unavailable OLIMPIA REED MD Unavailable Unavailable OLIMPIA REED MD Unavailable Unavailable BRIANNAOLIMPIA MONTALVO MD Unavailable Unavailable BRIANNAOLIMPIA MONTALVO MD Unavailable Unavailable BRIANNAOLIMPIA MONTALVO MD Unavailable Unavailable OLIMPIA REED MD Unavailable Unavailable OLIMPIA REED MD Unavailable Unavailable OLIMPIA REED MD Unavailable Unavailable OLIMPIA REED MD Unavailable Unavailable OLIMPIA REED MD Unavailable Unavailable OLIMPIA REED MD Unavailable Unavailable OLIMPIA REED MD Unavailable Unavailable Ольга CASTLE [id number] Unavailable Unavailable Dodard, Pérez DO Unavailable Unavailable Dodard, Pérez DO Unavailable Unavailable Dodard, Pérez DO Unavailable Unavailable Dodard, Pérez DO Unavailable Unavailable Dodard, Pérez DO Unavailable Unavailable Dodard, Pérez DO Unavailable Unavailable Dodard, Pérez DO Unavailable Unavailable Dodard, Pérez DO Unavailable Unavailable Dodard, Pérez DO Unavailable Unavailable Dodard, Pérez DO Unavailable Unavailable Dodard, Pérez DO Unavailable Unavailable Dodard, Pérez DO Unavailable Unavailable Dodard, Pérez DO Unavailable Unavailable Dodard, Pérez DO Unavailable Unavailable Dodard, Pérez DO Unavailable Unavailable Dodard, Pérez DO Unavailable Unavailable Dodard, Pérez DO Unavailable Unavailable Dodard, Pérez DO Unavailable Unavailable Dodard, Pérez DO Unavailable Unavailable Dodard, Pérez DO Unavailable Unavailable Dodard, Pérez DO Unavailable Unavailable Dodard, Pérez DO Unavailable Unavailable Dodard, Pérez DO Unavailable Unavailable Dodard, Pérez DO Unavailable Unavailable Dodard, Pérez DO Unavailable Unavailable Dodard, Pérez DO Unavailable Unavailable Dodard, Pérez DO Unavailable Unavailable Dodard, Pérez DO Unavailable Unavailable Dodard, Pérez DO Unavailable Unavailable Dodard, Pérez DO Unavailable Unavailable Dodard, Pérez DO Unavailable Unavailable Dodard, Pérez DO Unavailable Unavailable Dodard, Pérez DO Unavailable Unavailable Dodard, Pérez DO Unavailable Unavailable Dodard, Pérez DO Unavailable Unavailable Dodard, Pérez DO Unavailable Unavailable Dodard, Pérez DO Unavailable Unavailable Dodard, Pérez DO Unavailable Unavailable Dodard, Pérez DO Unavailable Unavailable Dodard, Pérez DO Unavailable Unavailable Dodard, Pérez DO Unavailable Unavailable Dodard, Pérez DO Unavailable Unavailable Dodard, Pérez DO Unavailable Unavailable Dodard, Pérez DO Unavailable Unavailable Andreas, Russel MD Unavailable Unavailable Andreas, Russel MD Unavailable Unavailable Andreas, Russel MD Unavailable Unavailable Andreas, Russel MD Unavailable Unavailable Andreas, Russel MD Unavailable Unavailable Andreas, Russel MD Unavailable Unavailable Andreas, Russel MD Unavailable Unavailable Andreas, Russel MD Unavailable Unavailable JENNIFER, MELYNNE DEO MD Unavailable Unavailable JENNIFER, MELYNNE DEO MD Unavailable Unavailable JENNIFER, MELYNNE DEO MD Unavailable Unavailable JENNIFER, MELYNNE DEO MD Unavailable Unavailable JENNIFER, MELYNNE DEO MD Unavailable Unavailable JENNIFER, MELYNNE DEO MD Unavailable Unavailable JENNIFER, MELYNNE DEO MD Unavailable Unavailable JENNIFER, MELYNNE DEO MD Unavailable Unavailable JENNIFER, MELYNNE DEO MD Unavailable Unavailable JENNIFER, MELYNNE DEO MD Unavailable Unavailable JENNIFER, MELYNNE DEO MD Unavailable Unavailable JENNIFER, MELYNNE DEO MD Unavailable Unavailable JENNIFER, MELYNNE DEO MD Unavailable Unavailable JENNIFER, MELYNNE DEO MD Unavailable Unavailable JENNIFER, MELYNNE DEO MD Unavailable Unavailable JENNIFER, MELYNNE DEO MD Unavailable Unavailable JENNIFER, MELYNNE DEO MD Unavailable Unavailable JENNIFER, MELYNNE DEO MD Unavailable Unavailable JENNIFER, MELYNNE DEO MD Unavailable Unavailable JENNIFER, MELYNNE DEO MD Unavailable Unavailable JENNIFER, MELYNNE DEO MD Unavailable Unavailable JENNIFER, MELYNNE DEO MD Unavailable Unavailable JENNIFER, MELYNNE DEO MD Unavailable Unavailable JENNIFER, MELYNNE DEO MD Unavailable Unavailable JENNIFER, MELYNNE DEO MD Unavailable Unavailable JENNIFER, MELYNNE DEO MD Unavailable Unavailable JENNIFER, MELYNNE DEO MD Unavailable Unavailable JENNIFER, MELYNNE DEO MD Unavailable Unavailable JENNIFER, MELYNNE DEO MD Unavailable Unavailable JENNIFER, MELYNNE DEO MD Unavailable Unavailable JENNIFER, MELYNNE DEO MD Unavailable Unavailable JENNIFER, MELYNNE DEO MD Unavailable Unavailable JENNIFER, MELYNNE DEO MD Unavailable Unavailable JENNIFER, MELYNNE DEO MD Unavailable Unavailable JENNIFER, MELYNNE DEO MD Unavailable Unavailable JENNIFER, MELYNNE DEO MD Unavailable Unavailable JENNIFER, MELYNNE DEO MD Unavailable Unavailable JENNIFER, MELYNNE DEO MD Unavailable Unavailable JENNIFER, MELYNNE DEO MD Unavailable Unavailable JENNIFER, MELYNNE DEO MD Unavailable Unavailable MEHIC, FEHID UX DESIGN LEAD Unavailable Unavailable MEHIC, FEHID UX DESIGN LEAD Unavailable Unavailable MEHIC, FEHID UX DESIGN LEAD Unavailable Unavailable MEHIC, FEHID UX DESIGN LEAD Unavailable Unavailable MEHIC, FEHID UX DESIGN LEAD Unavailable Unavailable MEHIC, FEHID UX DESIGN LEAD Unavailable Unavailable MEHIC, FEHID UX DESIGN LEAD Unavailable Unavailable MEHIC, FEHID UX DESIGN LEAD Unavailable Unavailable MEHIC, FEHID UX DESIGN LEAD Unavailable Unavailable MEHIC, FEHID UX DESIGN LEAD Unavailable Unavailable MEHIC, FEHID UX DESIGN LEAD Unavailable Unavailable MEHIC, FEHID UX DESIGN LEAD Unavailable Unavailable MEHIC, FEHID UX DESIGN LEAD Unavailable Unavailable MEHIC, FEHID UX DESIGN LEAD Unavailable Unavailable MEHIC, FEHID UX DESIGN LEAD Unavailable Unavailable MEHIC, FEHID UX DESIGN LEAD Unavailable Unavailable MEHIC, FEHID UX DESIGN LEAD Unavailable Unavailable MEHIC, FEHID UX DESIGN LEAD Unavailable Unavailable MEHIC, FEHID UX DESIGN LEAD Unavailable Unavailable MEHIC, FEHID UX DESIGN LEAD Unavailable Unavailable MEHIC, FEHID UX DESIGN LEAD Unavailable Unavailable Re-disclosure Warning The records that you are about to access may contain information from federally-assisted alcohol or drug abuse programs. If such information is present, then the following federally mandated warning applies: This information has been disclosed to you from records protected by federal confidentiality rules (42 CFR part 2). The federal rules prohibit you from making any further disclosure of this information unless further disclosure is expressly permitted by the written consent of the person to whom it pertains or as otherwise permitted by 42 CFR part 2. A general authorization for the release of medical or other information is NOT sufficient for this purpose. The Federal rules restrict any use of the information to criminally investigate or prosecute any alcohol or drug abuse patient.The records that you are about to access may contain highly sensitive health information, the redisclosure of which is protected by Article 27-F of the [facility] Public Health law. If you continue you may have access to information: Regarding HIV / AIDS; Provided by facilities licensed or operated by the [facility] Office of Mental Health; or Provided by the [facility] Office for People With Developmental Disabilities. If such information is present, then the following [facility] mandated warning applies: This information has been disclosed to you from confidential records which are protected by state law. State law prohibits you from making any further disclosure of this information without the specific written consent of the person to whom it pertains, or as otherwise permitted by law. Any unauthorized further disclosure in violation of state law may result in a fine or care home sentence or both. A general authorization for the release of medical or other information is NOT sufficient authorization for further disc losure. Allergies and Adverse Reactions Type Description Substance Reaction Status Data Source(s ) Drug Class NO KNOWN ALLERGIES NO KNOWN ALLERGIES [facility] Family History Family Member Name Family Member Gender Family Member Status Date o f Status Description Data Source(s) Unknown Male Problem [facility] ([facility] Unknown [facility] Unknown Unknown Problem [facility] ([facility], ) Unknown Unknown Problem [facility] ([facility] Encounters Encounter Providers Location Date Indications Data Source(s ) Outpatient Attender: ISHMAEL LEI [id number] 06/27/2020 12:0 0:00 AM [facility] Outpatient Attender: JANIA ROBISON NPReferrer: Ivon Lau MD [id number] 04/12/2020 12:00:00 [facility]: ANTONIO BROWN [facility] 03/09 12:45:00 PM EST [facility] ([facility] Outpatient Attender: JANIA ROIBSON UX DESIGN LEAD 04/05/2020 12:00:00 AM [facility] Outpatient Attender: ISHMAEL LEI [id number] 02/26/2020 12:00:00 AM EST - 02/26/2020 10:06:34 AM [facility] Outpatient Referrer: Ivon Lau MD 02/26/2020 12:00:0 0 AM EST Other nonspecific abnormal finding of lung [facility] Other nonspecific abnormal finding of [facility] Outpatient Attender: Anthony LOCK MDReferrer: Ivon Lau MD [id number] 02/22/2020 12:00:00 AM EST - 02/22/2020 10:59:31 AM EST Myalgia, other site [facility] Myalgia, other site Outpatient Attender: ISHMAEL LEI [id number] 12/22/2019 12:00:00 AM EDT - 12/22/2019 04:06:25 PM EDT Systemic involvement of connective tissu e, unspecified [facility] Systemic involvement of connective tissu e, unspecified Outpatient Attender: MARIO GAMEZ NPReferrer: MARIO GAMEZ NP 12/22/2019 12:00:00 AM EDT - 12/23/2019 12:00:00 AM EDT [facility] Outpatient 12/22/2019 12:00:00 AM [facility] Outpatient 12/02/2019 12:00:00 AM [facility] Outpatient Attender: MARIO GAMEZ NP 12/02/2019 12:00:00 A M [facility] Outpatient Attender: JANIA ROBISON NPReferrer: Ivon Lau MD [id number] 11/20/2019 12:00:00 AM EDT Myalgia, other site [facility] Myalgia, other site Outpatient Attender: WILDA CASTLE [id number] 2019 12: 00:00 AM EDT telemed [facility] telemed [facility] Outpatient Attender: MARIO GAMEZ NPReferrer: MARIO GAMEZ NP 11/04/2019 12:00:00 AM [facility] Outpatient Attender: MARIO GAMEZ NP 11/04/2019 12:00:00 A M [facility] Outpatient 11/04/2019 12:00:00 AM [facility] Outpatient Attender: Jen PETER 11/03/2019 12:00:0 0 AM [facility] Inpatient Attender: TYRON MURPHYI MDAttender: BASHIR JOHNSONDAAttender: Russel Johns MDAttender: CLAUS ALMANZA MDAdmitter: Russel Johns MDReferrer: Russel Johns MD [id number] 10/23/2019 12:00:00 AM EDT - 10/28/2019 12:00:00 AM EDT Acute and chronic respiratory failure with hypoxia [facility] Acute and chronic respiratory failure wi th hypoxia Patient discharged. Outpatient Attender: Anthony LOCK MDReferrer: Ivon Lau MD [id number] 10/23/2019 12:00:00 AM EDT - 10/23/2019 03:16:43 PM EDT Myalgia, other site [facility] Myalgia, other site Outpatient Attender: MARIO GAMEZ NP [id number] 10/21/2019 12: 00:00 AM EDT Other nonspecific abnormal finding of lung [facility] Other nonspecific abnormal finding of [facility] Outpatient Attender: Anthony LOCK MDReferrer: Ivon Lau MD [id number] 09/22/2019 12:00:[address] [facility] Outpatient Attender: Mary Leyva FNPReferrer: Mary MCDANIEL-SJP.KRISTEL 08/13/2019 09:26:10 AM EDT - 08/13/2019 12:17:[address] [facility] Outpatient Attender: Mary Leyva FNPReferrer: Mary MCDANIEL-SJLurdesKRISTEL 08/13/2019 12:00:00 AM EDT - 08/13/2019 10:44:[address] [facility] Outpatient Attender: Mary MORALES-SJLurdesKRISTEL 0 12:00:00 AM EDT - 07/29/2019 09:38:48 AM EDT [facility] Outpatient Referrer: Felicita MORALES-SJRICHARD 09/2019 10:47:[address] [facility] Outpatient Attender: Felicita Whittenerrer: Stevie Randolph MD SJAnthony.KRISTEL-SJP.KRISTEL 06/25/2019 09:20:48 AM EDT - 06/25/2019 12:58:[address] [facility] Outpatient Attender: MARIO GAMEZ NP 06/25/2019 12:00:[address] [facility] Outpatient Attender: Felicita TIRADO.KRISTEL-SJP.KRISTEL 08/2019 12:00:00 AM EST - 06/11/2019 12:00:[address] [facility] Outpatient Attender: MARIO GAMEZ NPAdmitter: MARIO GAMEZ NP [id number] 06/03/2019 12:00:00 AM EST - 06/03/2019 05:06:00 PM EST Chronic diastolic (congestive) heart failure [facility] Chronic diastolic (congestive) heart rahul lure Patient discharged. Outpatient Attender: MARIO GAMEZ NP [id number] 2019 12:00:00 AM EST - 05/15/2019 02:43:11 PM EST Acute respiratory failure with hypoxia [facility] Acute respiratory failure with hypoxia Outpatient Attender: MARIO GAMEZ NPReferrer: MARIO GAMEZ NP 05/15/2019 12:00:00 AM EST Acute respiratory failure with hypoxia [facility] Acute respiratory failure with hypoxia Outpatient Attender: WILDA CASTLE [id number] 05/14 12:00:00 AM EST - 05/14/2019 09:24:14 AM EST Other nonspecific abnormal finding of lung [facility] Other nonspecific abnormal finding of [facility] Outpatient Attender: WILDA CASTLE [id number] 05/13/2019 12:00:[address] [facility] Outpatient Referrer: Pérez Olvera DO 05/01/2019 01:24:00 PM EST [facility] Outpatient Attender: AUGUSTO SINGH MDAdm itter: AUGUSTO SINGH MDReferrer: Anthony LOCK MD 04/09/2019 12:00:00 AM [facility] Referrer: Anthony LOCK MD 04/07/2019 12:00:00 AM ES [facility] Inpatient Attender: DEFAULT / GENE VANE / UNKNOWN PROVIDER ALIASES Attender: AUGUSTO SINGH MDAttender: OLIMPIA REED MDAttender: GIRISH DOYLE MDAttender: BASHIR JOHNSONDAAttender: NICOLLE BENAVIDEZ MDAttender: Betsey Thakkar MDAdmitter: NICOLLE BENAVIDEZ MDReferrer: Anthony LOCK MD [id number] 04/06 12:00:00 AM EST - 04/09/2019 01:32:00 PM EST Salmonella sepsis [facility] spital Salmonella sepsis Patient discharged. Outpatient Attender: Betsey Thakkar MDA dmitter: Betsey Thakkar MDReferrer: MIKY JIMÉNEZ 04/06/2019 12:00:00 AM EST AP1 [facility] AP1 Outpatient Referrer: Pérez Olvera DO 03/18/2019 01:48:00 PM EST [facility] Outpatient Referrer: Pérez Olvera DO 03/18/2019 01:30:00 PM EST [facility] Outpatient Referrer: Pérez Olvera DO 03/17/2019 09:11:00 AM EST [facility] Outpatient Attender: DEO Ervin/Morenita/Boyd aburto 03/16/2019 02:00:00 PM EST [facility] ([facility] Outpatient Referrer: Pérez Olvera DO 03/13/2019 10:19:00 AM EST [facility] Outpatient Referrer: Anthony LOCK MD 03/13/2019 10:17:00 AM ES T [facility] Medications Medication Brand Name Start Date Product Form Dose Route Admi nistrative Instructions Pharmacy Instructions Status Indications Reaction Description Data Source(s) Alprazolam 0.5 MG Oral Tablet ALPRAZOLAM 04/19/2020 12:00:00 AM EST ta blet 92 TAKE ONE TABLET BY MOUTH FOUR TIMES A DAY MAXIMUM DAILY DOSE = 4 TABLETS TAKE ONE TABLET BY MOUTH FOUR TIMES A DAY MAXIMUM DAILY DOSE = 4 TABLETS SOLD: 04/22/2020 [facility] 20 mg 04/19/2020 12:00:00 AM EST capsule 46 TAKE ONE CAPSULE BY MOUTH TWICE A DAY TAKE ONE CAPSULE BY MOUTH TWICE A DAY SOLD: 04/22/2020 [facility] 30 mg 04/16/2020 12:00:00 AM EST tablet extended release 60 TAKE ONE TABLET BY MOUTH EVERY 12 HOURS MAXIMUM DAILY DOSE = 60MG TAKE ONE TABLET BY MOUTH EVERY 12 HOURS MAXIMUM DAILY DOSE = 60MG SOLD: 04/17/2020 [facility] 1,250 mcg (50,000 unit) 04/16/2020 12:00:00 AM EST capsule 13 TAKE ONE CAPSULE BY MOUTH ONCE WEEKLY TAKE ONE CAPSULE BY MOUTH ONCE WEEKLY SOLD: 04/17/2020 [facility] 5 mg 04/13/2020 12:00:00 AM EST tablet 30 TAKE ONE TABLET BY MOUTH THREE TIMES A DAY FOR 10 DAYS TAKE ONE TABLET BY MOUTH THREE TIMES A DAY FOR 10 DAYS SOLD: 04/16/2020 [facility] Cyclobenzaprine hydrochloride 5 MG Oral Tablet Cyclobenzaprine HCl 5 MG Oral Tablet (FLEXERIL) Cyclobenzaprine HCl 5 MG Oral Tablet (FLEXERIL) 2020 12:00:00 AM EST 5 mg Oral active Take 1 tablet by mouth Three times daily for [address] [facility] Morphine Sulfate 30 MG Extended Release Oral Tablet Morphine Sulfate ER 30 MG Oral Tablet Extended Release (MS CONTIN) Morphine Sulfate ER 30 MG Oral Tablet Extended Release (MS CONTIN) 04/12/2020 12:00:00 AM EST 30 mg Oral active Pain management contract agreementNeck pain on left side Take 1 tablet by mouth every 12 (twelve) hours , Max Daily Dose: [address] [facility] Pain management contract agreement Neck pain on left side Alprazolam 0.5 MG Oral Tablet ALPRAZOLAM 04/08/2020 12:00:00 AM EST ta blet 28 TAKE ONE TABLET BY MOUTH FOUR TIMES A DAY MAXIMUM DAILY DOSE = 4 TABLETS TAKE ONE TABLET BY MOUTH FOUR TIMES A DAY MAXIMUM DAILY DOSE = 4 TABLETS SOLD: 04/09/2020 [facility] 20 mg 04/07/2020 12:00:00 AM EST capsule 14 TAKE ONE CAPSULE BY MOUTH TWICE A DAY TAKE ONE CAPSULE BY MOUTH TWICE A DAY SOLD: 04/07/2020 [facility] 150 mg 04/07/2020 12:00:00 AM EST tablet 180 TAKE THREE TABLETS BY MOUTH TWICE A DAY TAKE THREE TABLETS BY MOUTH TWICE A DAY SOLD: 04/07/2020 [facility] oxcarbazepine 150 MG Oral Tablet OXcarbazepine 150 MG Oral Tablet (TRILEPTAL) OXcarbazepine 150 MG Oral Tablet (TRILEPTAL) 04/06/2020 12:00:00 AM EST active 3 tablets by mouth twice a d ay. [facility] gabapentin 600 MG Oral Tablet Gabapentin 600 MG Oral T ablet (NEURONTIN) Gabapentin 600 MG Oral Tablet (NEURONTIN) 03/31/2020 12:00:00 AM EST 1200 mg Oral active Neck pain on left side Ta ke 2 tablets by mouth Three times daily [facility] Neck pain on left side 600 mg 03/31/2020 12:00:00 AM EST tablet 180 TAKE 2 TABLETS BY MOUTH THREE TIMES A DAY TAKE 2 TABLETS BY MOUTH THREE TIMES A DAY SOLD: 04/07/2020 [facility] 30 mg 03/17/2020 12:00:00 AM EST tablet extended release 60 TAKE ONE TABLET BY MOUTH EVERY 12 HOURS MAXIMUM DAILY DOSE = 60MG TAKE ONE TABLET BY MOUTH EVERY 12 HOURS MAXIMUM DAILY DOSE = 60MG SOLD: 03/19/2020 [facility] Morphine Sulfate 30 MG Extended Release Oral Tablet Morphine Sulfate ER 30 MG Oral Tablet Extended Release (MS CONTIN) Morphine Sulfate ER 30 MG Oral Tablet Extended Release (MS CONTIN) 03/15/2020 12:00:00 AM EST 30 mg Oral aborted Pain management contract agreementNeck pain on left side Take 1 tablet by mouth every 12 (twelve) hours , Max Daily Dose: [address] [facility] Pain management contract agreement Neck pain on left side 20 mg 03/10/2020 12:00:00 AM EST capsule 60 TAKE ONE CAPSULE BY MOUTH TWICE A DAY TAKE ONE CAPSULE BY MOUTH TWICE A DAY SOLD: 03/11/2020 [facility] pantoprazole 40 MG Delayed Release Oral Tablet PANTOPRAZOLE SODIUM 03/10/2020 12:00:00 AM EST tablet,delayed release (DR/EC) 90 T ARCELIA ONE TABLET BY MOUTH EVERY DAY TAKE ONE TABLET BY MOUTH EVERY DAY SOLD: 03/11/2020 [facility] Alprazolam 0.5 MG Oral Tablet ALPRAZOLAM 03/10/2020 12:00:00 AM EST t ablet 120 TAKE ONE TABLET BY MOUTH FOUR TIMES A DAY MAXIMUM FRANNIE Y DOSE = 4 TABLETS TAKE ONE TABLET BY MOUTH FOUR TIMES A DAY MAXIMUM DAILY DOSE = 4 TABLETS SOLD: 03/11/2020 [facility] 40 mg 03/10/2020 12:00:00 AM EST tablet 90 TAKE ONE TABLET BY MOUTH EVERY DAY TAKE ONE TABLET BY MOUTH EVERY DAY SOLD: 03/11/2020 [facility] albuterol (PROVENTIL HFA) inhaler 2 puff [id number] 02/26/2020 08:45:00 AM EST 2 {puff} Inhalation active 2 pu ff, Inhalation, Once, Sat02/26/20 at 0845, For 1 dose
Shake the inhaler well before each spray.
[facility] Medication administered onsite 5 mg 02/17/2020 12:00:00 AM EST tablet 240 TAKE 1 TABLET BY MOUTH EVERY 3 HOURS NEEDED FOR PAIN MAXIMUM DAILY DOSE = 8 TABLETS TAKE 1 TABLET BY MOUTH EVERY 3 HOURS NEEDED FOR PAIN MAXIMUM DAILY DOSE = 8 TABLETS SOLD: 02/18/2020 [facility] 30 mg 02/17/2020 12:00:00 AM EST tablet extended release 60 TAKE ONE TABLET BY MOUTH EVERY 12 HOURS MAXIMUM DAILY DOSE = TWO TABLETS TAKE ONE TABLET BY MOUTH EVERY 12 HOURS MAXIMUM DAILY DOSE = TWO TABLETS SOLD: 02/18/2020 [facility] Morphine Sulfate 30 MG Extended Release Oral Tablet Morphine Sulfate ER 30 MG Oral Tablet Extended Release (MS CONTIN) Morphine Sulfate ER 30 MG Oral Tablet Extended Release (MS CONTIN) 02/16/2020 12:00:00 AM EST 30 mg Oral active Neck pain on left side Take 1 tablet by mouth every 12 (twelve) hours , Max Daily Dose: [address] [facility] Neck pain on left side Oxycodone Hydrochloride 5 MG Oral Tablet oxyCODONE HCl 5 MG Oral Tablet (ROXICODONE) oxyCODONE HCl 5 MG Oral Tablet (ROXICODONE) 02/16/2020 12:00:00 AM EST 5 mg Oral aborted Neck pain on left side Take 1 tablet by mouth every 3 (three) hours as needed for Pain, Max Daily Dose: [address] [facility] Neck pain on left side 20 mg 02/03/2020 12:00:00 AM EDT capsule 60 TAKE ONE CAPSULE BY MOUTH TWO TIMES A DAY TAKE ONE CAPSULE BY MOUTH TWO TIMES A DAY SOLD: 02/03/2020 [facility] 25 mg 02/03/2020 12:00:00 AM EDT capsule 90 TAKE ONE CAPSULE BY MOUTH THREE TIMES A DAY TAKE ONE CAPSULE BY MOUTH THREE TIMES A DAY SOLD: 02/03/2020 [facility] 5 mg 01/19/2020 12:00:00 AM EDT tablet 240 TAKE ONE TABLET BY MOUTH EVERY 3 HOURS NEEDED FOR PAIN MAXIMUM DAILY DOSE = 8 TABLETS TAKE ONE TABLET BY MOUTH EVERY 3 HOURS NEEDED FOR PAIN MAXIMUM DAILY DOSE = 8 TABLETS SOLD: 01/19/2020 [facility] 30 mg 01/19/2020 12:00:00 AM EDT tablet extended release 60 TAKE ONE TABLET BY MOUTH EVERY 12 HOURS MAXIMUM DAILY DOSE = 2 TABLETS TAKE ONE TABLET BY MOUTH EVERY 12 HOURS MAXIMUM DAILY DOSE = 2 TABLETS SOLD: 01/19/2020 [facility] 500 mg 01/14/2020 12:00:00 AM EDT tablet 5 TAKE 1 TABLET [500MG] BY MOUTH ONCE DAILY FOR 5 DAYS TAKE 1 TABLET [500MG] BY MOUTH ONCE DAILY FOR 5 DAYS S OLD: 01/15/2020 [facility] 80-4.5 mcg/actuation 12/23/2019 12:00:00 AM EDT HFA aerosol inhaler 10 INHALE TWO PUFFS BY MOUTH TWICE A DAY INHALE TWO PUFFS BY MOUTH TWICE A DAY SOLD: 12/24/2019 [facility] 90 mcg/actuation 12/23/2019 12:00:00 AM EDT HFA aerosol inha ler 8 INHALE 2 PUFFS INTO THE LUNGS EVERY 6 HOURS NEEDED FOR WHEEZING OR FOR SHORTNESS OF BREATH INHALE 2 PUFFS INTO THE LUNGS EVERY 6 HO URS NEEDED FOR WHEEZING OR FOR SHORTNESS OF BREATH SOLD: 12/24/2019 [employer] Albuterol Sulfate HFA 108 (90 Base) MCG/ ACT Inhalation Aerosol Solution (PROVENTIL HFA) 4135-4486-91 12/22/2019 12:00:00 AM EDT 2 {puff} Inha lation active Wheezing Inhale 2 puffs i nto the lungs every 6 (six) hours as needed for Wheezing or Shortness of Breath [facility] Wheezing 60 ACTUAT Budesonide 0.08 MG/ACTUAT / fo rmoterol fumarate 0.0045 MG/ACTUAT Metered Dose Inhaler Budesonide-Formoterol Fumarate 80-4.5 MCG/ACT Inhalation Aerosol (SYMBICORT) Budesonide-Formoterol Fumarate 80-4.5 MC G/ACT Inhalation Aerosol (SYMBICORT) 12/22/2019 12:00:00 AM EDT 2 {puff} Inhalation active Wheezing Inhale 2 puffs into the lungs Two Times Daily [facility] Wheezing 30 mg 12/21/2019 12:00:00 AM EDT tablet extended release 60 TAKE ONE TABLET BY MOUTH EVERY 12 HOURS MAXIMUM DAILY DOSE = 2 TABLETS TAKE ONE TABLET BY MOUTH EVERY 12 HOURS MAXIMUM DAILY DOSE = 2 TABLETS SOLD: 12/21/2019 [facility] 5 mg 12/21/2019 12:00:00 AM EDT tablet 240 TAKE 1 TABLET BY MOUTH EVERY 3 HOURS NEEDED FOR PAIN MAXIMUM DAILY DOSE = 8 TABLETS TAKE 1 TABLET BY MOUTH EVERY 3 HOURS NEEDED FOR PAIN MAXIMUM DAILY DOSE = 8 TABLETS SOLD: 12/21/2019 [facility] Oxycodone Hydrochloride 5 MG Oral Tablet oxyCODONE HCl 5 MG Oral Tablet (ROXICODONE) oxyCODONE HCl 5 MG Oral Tablet (ROXICODONE) 12/17/2019 12:00:00 AM EDT 5 mg Oral active Neck pain on left side Take 1 tablet by mouth every 3 (three) hours as needed for Pain, Max Daily Dose: [address] [facility] Neck pain on left side Morphine Sulfate 30 MG Extended Release Oral Tablet Morphine Sulfate ER 30 MG Oral Tablet Extended Release (MS CONTIN) Morphine Sulfate ER 30 MG Oral Tablet Extended Release (MS CONTIN) 12/17/2019 12:00:00 AM EDT 30 mg Oral active Neck pain on left side Take 1 tablet by mouth every 12 (twelve) hours , Max Daily Dose: [address] [facility] Neck pain on left side 20 mg 12/17/2019 12:00:00 AM EDT tablet 30 TAKE ONE TABLET BY MOUTH EVERY DAY TAKE ONE TABLET BY MOUTH EVERY DAY SOLD: 12/21/2019 [facility] 25 mg 12/17/2019 12:00:00 AM EDT tablet 30 TAKE ONE TABLET BY MOUTH EVERY DAY TAKE ONE TABLET BY MOUTH EVERY DAY SOLD: 12/21/2019 [facility] 20 mg 12/17/2019 12:00:00 AM EDT tablet 30 TAKE ONE TABLET BY MOUTH EVERY DAY TAKE ONE TABLET BY MOUTH EVERY DAY SOLD: 01/19/2020 [facility] 40 mg 12/03/2019 12:00:00 AM EDT tablet,delayed release (DR/EC) 90 TAKE ONE TABLET BY MOUTH EVERY DAY TAKE ONE TABLET BY MOUTH EVERY DAY SOLD: 12/04/2019 [facility] 1 mg 12/03/2019 12:00:00 AM EDT tablet 90 TAKE ONE TABLET BY MOUTH DAILY AT BEDTIME TAKE ONE TABLET BY MOUTH DAILY AT BEDTIME SOLD: 12/04/2019 [facility] 5 mg 12/03/2019 12:00:00 AM EDT tablet 90 TAKE ONE TABLET BY MOUTH EVERY DAY TAKE ONE TABLET BY MOUTH EVERY DAY SOLD: 12/04/2019 [facility] 40 mg 12/03/2019 12:00:00 AM EDT tablet 90 TAKE ONE TABLET BY MOUTH EVERY DAY TAKE ONE TABLET BY MOUTH EVERY DAY SOLD: 12/04/2019 [facility] 20 mg 12/03/2019 12:00:00 AM EDT capsule 120 TAKE ONE CAPSULE BY MOUTH TWICE A DAY TAKE ONE CAPSULE BY MOUTH TWICE A DAY SOLD: 12/04/2019 [facility] 10 mg 11/25/2019 12:00:00 AM EDT tablet 30 TAKE 4 TABLETS BY MOUTH ONCE DAILY FOR 3 DAYS, THEN 3 TABLETS ONCE DAILY FOR 3 DAYS, THEN 2 TABLETS ONCE DAILY FOR 3 DAYS THEN 1 TABLET DAILY FOR 3 DAYS TAKE 4 TABLETS BY MOUTH ONCE DAILY FOR 3 DAYS, THEN 3 TABLETS ONCE DAILY FOR 3 DAYS, THEN 2 TABLETS ONCE DAILY FOR 3 DAYS THEN 1 TABLET DAILY FOR 3 DAYS SOLD: 11/25/2019 [facility] 875-125 mg 11/25/2019 12:00:00 AM EDT tablet 14 TAKE ONE TABLET BY MOUTH TWICE A DAY FOR 7 DAYS TAKE ONE TABLET BY MOUTH TWICE A DAY FOR 7 DAYS SOLD: 11/25/2019 [facility] Oxycodone Hydrochloride 5 MG Oral Tablet oxyCODONE HCl 5 MG Oral Tablet (ROXICODONE) oxyCODONE HCl 5 MG Oral Tablet (ROXICODONE) 11/21/2019 12:00:00 AM EDT 5 mg Oral active Neck pain on left side Take 1 tablet by mouth every 3 (three) hours as needed for Pain, Max Daily Dose: [address] [facility] Neck pain on left side Morphine Sulfate 30 MG Extended Release Oral Tablet Morphine Sulfate ER 30 MG Oral Tablet Extended Release (MS CONTIN) Morphine Sulfate ER 30 MG Oral Tablet Extended Release (MS CONTIN) 11/21/2019 12:00:00 AM EDT 30 mg Oral active Myofascial pain syndrome Take 1 tablet by mouth every 12 (twelve) hours , Max Daily Dose: [address] [facility] Myofascial pain syndrome 30 mg 11/20/2019 12:00:00 AM EDT tablet extended release 60 TAKE ONE TABLET BY MOUTH EVERY 12 HOURS MAXIMUM DAILY DOSE = 2 TABLETS TAKE ONE TABLET BY MOUTH EVERY 12 HOURS MAXIMUM DAILY DOSE = 2 TABLETS SOLD: 11/21/2019 [facility] 5 mg 11/20/2019 12:00:00 AM EDT tablet 240 TAKE ONE TABLET BY MOUTH EVERY 3 HOURS NEEDED FOR PAIN MAX DAILY DOSE = 8 TABLETS TAKE ONE TABLET BY MOUTH EVERY 3 HOURS NEEDED FOR PAIN MAX DAILY DOSE = 8 TABLETS SOLD: 11/21/2019 [facility] Prednisone 20 MG Oral Tablet predniSONE (DELTASONE) ta blet 40 mg predniSONE (DELTASONE) tablet 40 mg 10/28/2019 09:00:00 AM EDT 40 mg Oral active 40 mg, Oral, Daily Standard, First dose (after last modification) on Sat10/28/19 at 0900, For 27 doses
Take with food.
[facility] Medication administered onsite Prednisone 10 MG Oral Tablet predniSONE 10 MG Oral Tab let (DELTASONE) predniSONE 10 MG Oral Tablet (DELTASONE) 10/28/2019 12:00:00 AM EDT aborted Take 4 tablets by mouth daily for 2wks then 3 tab daily for 2 weeks then 2 tab daily for [address] [facility] Sulfamethoxazole 800 MG / Trimethoprim 1 60 MG Oral Tablet Sulfamethoxazole- Trimethoprim 800-160 MG Oral Tablet (Bactrim DS) Sulfamethoxazole-Trimethoprim 800-160 MG Oral Tablet (Bactrim DS) 10/28/2019 12:00:00 AM EDT 1 {tbl } Oral active Take 1 tablet by mouth 3 (th ree) times a week for [address] [facility] Prednisone 10 MG Oral Tablet predniSONE 10 MG Oral Tab let (DELTASONE) predniSONE 10 MG Oral Tablet (DELTASONE) 10/28/2019 12:00:00 AM EDT aborted Take 4 tab for 2wks then 3 tab for 2 weeks then 2 tab for [address] [facility] 60 ACTUAT Budesonide 0.08 MG/ACTUAT / fo rmoterol fumarate 0.0045 MG/ACTUAT Metered Dose Inhaler Budesonide-Formoterol Fumarate 80-4.5 MCG/ACT Inhalation Aerosol (SYMBICORT) Budesonide-Formoterol Fumarate 80-4.5 MC G/ACT Inhalation Aerosol (SYMBICORT) 10/28/2019 12:00:00 AM EDT 2 {puff} Inhalation aborted Inhale 2 puffs into the lungs Tw o Times Daily [facility] azithromycin (ZITHROMAX) 500 mg in sodium chloride 0.9 % 250 mL (2 mg/mL) IVPB 10/27/2019 09:30:00 AM EDT 500 mg Intravenous active 500 mg, Intravenous, at 250 mL/hr, Every 24 hours, First dose on Sat10/27/19 at 0930, For [address] [facility] Medication administered onsite Ceftriaxone 1000 MG Injection cefTRIAXone (ROCEPHIN) i nfusion 1 g (premix) cefTRIAXone (ROCEPHIN) infusion 1 g (premix) 10/27/2019 09:30:00 AM EDT 1 g Intravenous active 1 g, Intraven ous, at 100 mL/hr, Every 24 hours, First dose on Sat10/27/19 at 0930, For 5 days
Discouraged Uses: Empiric treatment of post-surgical meningitis (ceftazidime preferred)
[facility] Medication administered onsite Oxycodone Hydrochloride 5 MG Oral Tablet oxyCODONE (ROXICODONE) immediate release tablet 5 mg oxyCODONE (ROXICODONE) immediate release tablet 5 mg 10/27/2019 08:23:07 AM EDT 5 mg Oral active 5 mg, Oral, Every 3 hours PRN, Severe Pain (Pain Scale Score 7-10), Starting Sat10/27/19 at 0823, For 8 doses
Oxycodone immediate release is limited to 10 mg per dose. Higher doses ( only) require Pain Service consultation and approval.
[facility] Medication administered onsite Prednisone 20 MG Oral Tablet predniSONE (DELTASONE) ta blet 60 mg predniSONE (DELTASONE) tablet 60 mg 10/25/2019 09:00:00 AM EDT 60 mg Oral aborted 60 mg, Oral, Daily Standard, First dose on Sat10/25/19 at 0900, For 30 days
Take with food.
[facility] Medication administered onsite 120 ACTUAT Albuterol 0.1 MG/ACTUAT / Ipr atropium [place] 0.02 MG/ACTUAT Metered Dose Inhaler ipratropium-albuterol (COMBIVENT RESPIMAT) inhaler 1 puff ipratropium-albuterol (COMBIVENT RESPIMAT) inhaler 1 puff 10/24/2019 08:00:00 PM EDT 1 {puff} Inhalation active 1 pu ff, Inhalation, Every 6 hours, First dose on Sat10/24/19 at 2000, For [address] [facility] Medication administered onsite heparin (porcine) 5000 UNIT/ML injection 5,000 Units [id number] 10/24/2019 05:00:00 PM EDT 5000 U Subcutaneous aborted 5,000 Units, Subcutaneous, Three Times Daily Standard, First dose (after last modification) on 10/24/19 at 1700, For [address] [facility] Medication administered onsite methylPREDNISolone sodium succinate (SOLU-MEDROL) injection 60 mg [id number] 10/24/2019 09:45:00 AM EDT 60 mg Intravenous aborted 60 mg, Intravenous, Daily Standard, First dose on 10/24/19 at 0945, For [address] [facility] Medication administered onsite Pravastatin Sodium 20 MG Oral Tablet pravastatin (PRAV ACHOL) tablet 40 mg pravastatin (PRAVACHOL) tablet 40 mg 10/24/2019 09:00:00 AM EDT 40 mg Oral active 40 mg, Oral, [place] ly Standard, First dose on 10/24/19 at 0900, For [address] [facility] Medication administered onsite Fluoxetine 20 MG Oral Capsule fluoxetine (PROZAC) caps ule 20 mg fluoxetine (PROZAC) capsule 20 mg 10/24/2019 09:00:00 AM EDT 20 mg Oral active 20 mg, Oral, 2 Times Daily, First dose on 10/24/19 at 0900, For [address] [facility] Medication administered onsite pantoprazole 40 MG Delayed Release Oral Tablet pantoprazole (PROTONIX) EC tablet 40 mg pantoprazole (PROTONIX) EC tablet 40 mg 10/24/2019 09:00:00 AM E DT 40 mg Oral active 40 mg, Ora l, Daily Standard, First dose on 10/24/19 at 0900, For 30 days
Do not crush or chew
[facility] Medication administered onsite heparin (porcine) 5000 UNIT/ML injection 5,000 Units [id number] 10/24/2019 09:00:00 AM EDT 5000 U Subcutaneous aborted 5,000 Units, Subcutaneous, Three Times Daily Standard, First dose on 10/24/19 at 0900, For [address] [facility] Medication administered onsite gabapentin 300 MG Oral Capsule gabapentin (NEURONTIN) capsule 900 mg gabapentin (NEURONTIN) capsule 900 mg 10/24/2019 09:00:00 AM EDT 900 mg Oral active 900 mg, Oral, Three Times D aily Standard, First dose (after last modification) on 10/24/19 at 0900, For [address] [facility] Medication administered onsite oxcarbazepine 150 MG Oral Tablet OXcarbazepine (TRILEP VIET) tablet 450 mg OXcarbazepine (TRILEPTAL) tablet 450 mg 10/24/2019 09:00:00 AM EDT 450 mg Oral active 450 mg, Oral, 2 Times Daily, First dose on 10/24/19 at 0900, For [address] [facility] Medication administered onsite potassium chloride (K-DUR) dissolvable tablet 40 mEq [id number] 10/24/2019 08:00:00 AM EDT 40 meq Oral completed 40 mEq, Oral, Once, 10/24/19 at 0800, For 1 dose
May be dissolved in water for patients with a G-Tube or unable to swallow. If concern for clogging G-Tube, may contact Pharmacy to switch formulation to a powder packet.
[facility] Medication administered onsite Morphine Sulfate 30 MG Extended Release Oral Tablet morphine sulfate ER (MS CONTIN) 12 hr tablet 30 mg morphine sulfate ER (MS CONTIN) 12 hr tablet 30 mg 10/24/2019 04:00:00 AM EDT 30 mg Oral active 30 mg, Oral, Every 12 hours, First dose on 10/24/19 at 0400, For [address] [facility] Medication administered onsite tizanidine 4 MG Oral Tablet tizanidine (ZANAFLEX) tabl et 4 mg tizanidine (ZANAFLEX) tablet 4 mg 10/24/2019 03:52:44 AM EDT 4 mg Oral completed 4 mg, Oral, Three Times Daily-PRN, Muscle spasms, Starting 10/24/19 at 0352, For [address] [facility] Medication administered onsite Oxycodone Hydrochloride 5 MG Oral Tablet oxyCODONE (ROXICODONE) immediate release tablet 5 mg oxyCODONE (ROXICODONE) immediate release tablet 5 mg 10/24/2019 03:30:33 AM EDT 5 mg Oral active 5 mg, Oral, Every 3 hours PRN, Severe Pain (Pain Scale Score 7-10), Starting 10/24/19 at 0330, For 3 days
Oxycodone immediate release is limited to 10 mg per dose. Higher doses ( only) require Pain Service consultation and approval.
[facility] Medication administered onsite 60 ACTUAT Budesonide 0.08 MG/ACTUAT / fo rmoterol fumarate 0.0045 MG/ACTUAT Metered Dose Inhaler budesonide-formoterol (SYMBICORT) 80-4.5 MCG/ACT inhaler 2 puff budesonide-formoterol (SYMBICORT) 80-4.5 MCG/ACT inhal er 2 puff 10/23/2019 11:45:00 PM EDT 2 {puff} Inhalation active 2 puff, Inhalation, 2 Times Daily, First dose on Sat10/23/19 at 2345, For 14 days
Shake well before using
[facility] Medication administered onsite Hydrocortisone 50 MG/ML Injectable Solut ion hydrocortisone sodium succinate (SOLU-CORTEF) (PF) injection 50 mg hydrocortisone sodium succinate (SOLU-CO RTEF) (PF) injection 50 mg 10/23/2019 11:00:00 PM EDT 50 mg Intravenous aborted 50 mg, Intravenous, Every 6 hours, First dose on Sat10/23/19 at 2300, For [address] [facility] Medication administered onsite Piperacillin 3000 MG / tazobactam 375 MG Injection piperacillin-tazobactam (ZOSYN) IVPB 3.375 g (premix) piperacillin-tazobactam (ZOSYN) IVPB 3.3 75 g (premix) 10/23/2019 10:30:00 PM EDT 3.375 g Intravenous abo rted 3.375 g, Intravenous, Administer over 4 Hours, Every 8 hours, First dose on Sat10/23/19 at 2230, For [address] [facility] Medication administered onsite vancomycin (VANCOCIN) 1250 mg in NaCl 0.9 % 250 mL (premix) [id number] 10/23/2019 10:30:00 PM EDT 1250 mg Intravenous aborted 1,250 mg, Intravenous, Administer over 90 Minutes, Every 12 hours, First dose (after last reorder) on Sat10/23/19 at 2230, For [address] [facility] Medication administered onsite Lorazepam 0.5 MG Oral Tablet LORazepam (ATIVAN) tablet 0.5 mg LORazepam (ATIVAN) tablet 0.5 mg 10/23/2019 10:15:00 PM EDT 0.5 mg Oral com pleted 0.5 mg, Oral, Once, Sat10/23/19 at 2215, For [address] [facility] Medication administered onsite Albuterol 0.833 MG/ML / Ipratropium Brom sonali 0.167 MG/ML Inhalant Solution ipratropium-albuterol (DUONEB) 0.5-2.5 (3) MG/3ML nebulizer solution 3 mL ipratropium-albuterol (DUONEB) 0.5-2.5 (3) MG/3ML nebulizer solution 3 mL 10/23/2019 10:00:00 PM EDT 3 mL Nebulization aborted 3 mL, Nebulization, Every 6 hours, First dose on Sat10/23/19 at 2200, For 4 days
For Adults Q8 Hours is Hospital Standard, all orders will be changed to this unless NESHA is selected 'Yes' below.
[facility] Medication administered onsite ropinirole 1 MG Oral Tablet ropinirole (REQUIP) tablet 1 mg ropinirole (REQUIP) tablet 1 mg 10/23/2019 10:00:00 PM EDT 1 mg Oral active 1 mg, Oral, Nightly, First dose on Sat10/23/19 at 2200, For [address] [facility] Medication administered onsite Acetaminophen 10 MG/ML Injectable Soluti on acetaminophen (OFIRMEV) infusion 1,000 mg acetaminophen (OFIRMEV) infusion 1,000 mg 10/23/2019 08:45:00 PM EDT 1000 mg Intravenous completed 1,000 mg , Intravenous, Administer over 15 Minutes, Once, Sat10/23/19 at 2045, For 1 dose
Maximum dose 3 gm daily from all sources
[facility] Medication administered onsite azithromycin (ZITHROMAX) injection 500 mg [id number] 10/23/2019 0 8:15:00 PM EDT 500 mg Intravenous completed 500 mg, Intravenous, Once, Sat10/23/19 at 2015, For [address] [facility] Medication administered onsite 50 ML Magnesium Sulfate 40 MG/ML Injecti on magnesium sulfate infusion 2 g/50 mL (premix) magnesium sulfate infusion 2 g/50 mL (premix) 10/23/19 08:15:00 PM EDT 16 meq Intravenous completed 16 mEq, Intravenous, Once, Sat10/23/19 at 2014, For 1 dose
8 mEq = 1 g magnesium sulfate
[facility] Medication administered onsite Ceftriaxone 1000 MG Injection cefTRIAXone (ROCEPHIN) i njection 1 g cefTRIAXone (ROCEPHIN) injection 1 g 10/23/2019 08:15:00 PM EDT 1 g Intraven ous completed 1 g, Intravenous, On ce, Sat10/23/19 at 2014, For 1 dose
Discouraged Uses: Empiric treatment of post-surgical meningitis (ceftazidime preferred)
[facility] Medication administered onsite Albuterol 0.833 MG/ML / Ipratropium Brom s[place] 0.167 MG/ML Inhalant Solution ipratropium-albuterol (DUONEB) 0.5-2.5 (3) MG/3ML nebulizer solution 3 mL ipratropium-albuterol (DUONEB) 0.5-2.5 (3) MG/3ML nebulizer solution 3 mL 10/23/2019 08:15:00 PM EDT 3 mL Nebulization complete d 3 mL, Nebulization, Every 20 min, First dose on Sat10/23/19 at 2014, For 3 doses
Three (3) consecutive treatments, one right after the next for a total of 9 mL of medication (3 mL per treatment.
[facility] Medication administered onsite methylPREDNISolone sodium succinate (SOLU-MEDROL) injection 125 mg [id number] 10/23/2019 08:15:00 PM EDT 125 mg Intravenous completed 125 mg, Intravenous, Once, Sat10/23/19 at 2014, For [address] [facility] Medication administered onsite Albuterol 0.833 MG/ML / Ipratropium [place] 0.167 MG/ML Inhalant Solution ipratropium-albuterol (DUONEB) 0.5-2.5 (3) MG/3ML nebulizer solution ipratropium-albuterol (DUONEB) 0.5-2.5 (3) MG/3ML nebulizer solution 10/23/2019 08:04:41 PM EDT completed Starting Sat10/23/19 at 2004, For 1 dose
[place], Viridiana : cabinet override
[facility] Medication administered onsite methylPREDNISolone sodium succinate (SOLU-MEDROL) 125 MG inj ection [id number] 10/23/2019 08:04:31 PM EDT completed Starting Sat10/23/19 at 2004, For 1 dose
[place], Viridiana : cabinet override
[facility] Medication administered onsite 4 mg 10/23/2019 12:00:00 AM EDT capsule 120 1 CAP.BY MOUTH 3X/DAY NEEDED MUSCLE SPASMS MAY TAKE EXTRA 4MG AT NIGHT NEEDED 1 CAP.BY MOUTH 3X/DAY NEEDED MUSCLE SPASMS MAY TAKE EXTRA 4MG AT NIGHT NEEDED SOLD: 03/11/2020 [facility] tizanidine 4 MG Oral Capsule tiZANidine HCl 4 MG Oral Capsule (ZANAFLEX) tiZANidine HCl 4 MG Oral Capsule (ZANAFLEX) 10/23/2019 12:00:00 AM EDT aborted One capsule by m outh TID PRN for muscle spasms. May take an extra 4mg at night PRN. [facility] 4 mg 10/23/2019 12:00:00 AM EDT capsule 120 1 CAP.BY MOUTH 3X/DAY NEEDED MUSCLE SPASMS MAY TAKE EXTRA 4MG AT NIGHT NEEDED 1 CAP.BY MOUTH 3X/DAY NEEDED MUSCLE SPASMS MAY TAKE EXTRA 4MG AT NIGHT NEEDED SOLD: 01/07/2020 [facility] 4 mg 10/23/2019 12:00:00 AM EDT capsule 120 1 CAP.BY MOUTH 3X/DAY NEEDED MUSCLE SPASMS MAY TAKE EXTRA 4MG AT NIGHT NEEDED 1 CAP.BY MOUTH 3X/DAY NEEDED MUSCLE SPASMS MAY TAKE EXTRA 4MG AT NIGHT NEEDED SOLD: 12/04/2019 [facility] 4 mg 10/23/2019 12:00:00 AM EDT capsule 120 1 CAP.BY MOUTH 3X/DAY NEEDED MUSCLE SPASMS MAY TAKE EXTRA 4MG AT NIGHT NEEDED 1 CAP.BY MOUTH 3X/DAY NEEDED MUSCLE SPASMS MAY TAKE EXTRA 4MG AT NIGHT NEEDED SOLD: 02/10/2020 [facility] 4 mg 10/23/2019 12:00:00 AM EDT capsule 120 1 CAP.BY MOUTH 3X/DAY NEEDED MUSCLE SPASMS MAY TAKE EXTRA 4MG AT NIGHT NEEDED 1 CAP.BY MOUTH 3X/DAY NEEDED MUSCLE SPASMS MAY TAKE EXTRA 4MG AT NIGHT NEEDED SOLD: 04/09/2020 [facility] 4 mg 10/23/2019 12:00:00 AM EDT capsule 120 1 CAP.BY MOUTH 3X/DAY NEEDED MUSCLE SPASMS MAY TAKE EXTRA 4MG AT NIGHT NEEDED 1 CAP.BY MOUTH 3X/DAY NEEDED MUSCLE SPASMS MAY TAKE EXTRA 4MG AT NIGHT NEEDED SOLD: 11/02/2019 [facility] 5 mg 10/22/2019 12:00:00 AM EDT tablet 240 TAKE 1 TABLET BY MOUTH EVERY 3 HOURS NEEDED FOR PAIN MAXIMUM DAILY DOSE = 8 TAKE 1 TABLET BY MOUTH EVERY 3 HOURS NEEDED FOR PAIN MAXIMUM DAILY DOSE = 8 SOLD: 10/22/2019 [facility] 30 mg 10/22/2019 12:00:00 AM EDT tablet extended release 60 TAKE ONE TABLET BY MOUTH EVERY 12 HOURS MAXIMUM DAILY DOSE = 2 TAKE ONE TABLET BY MOUTH EVERY 12 HOURS MAXIMUM DAILY DOSE = 2 SOLD: 10/22/2019 [facility] Morphine Sulfate 30 MG Extended Release Oral Tablet Morphine Sulfate ER 30 MG Oral Tablet Extended Release (MS CONTIN) Morphine Sulfate ER 30 MG Oral Tablet Extended Release (MS CONTIN) 10/22/2019 12:00:00 AM EDT 30 mg Oral aborted Myofascial pain syndrome Take 1 tablet b y mouth every 12 (twelve) hours , Max Daily Dose: [address] [facility] Myofascial pain syndrome Oxycodone Hydrochloride 5 MG Oral Tablet oxyCODONE HCl 5 MG Oral Tablet (ROXICODONE) oxyCODONE HCl 5 MG Oral Tablet (ROXICODONE) 10/22/2019 12:00:00 AM EDT 5 mg Oral aborted Neck pain on left side Take 1 tablet by mouth every 3 (three) hours as needed for Pain, Max Daily Dose: [address] [facility] Neck pain on left side 1,250 mcg (50,000 unit) 10/20/2019 12:00:00 AM EDT capsule 13 TAKE 1 CAPSULE BY MOUTH ONCE PER WEEK TAKE 1 CAPSULE BY MOUTH ONCE PER WEEK SOLD: 10/22/2019 [facility] 1,250 mcg (50,000 unit) 10/20/2019 12:00:00 AM EDT capsule 13 TAKE 1 CAPSULE BY MOUTH ONCE PER WEEK TAKE 1 CAPSULE BY MOUTH ONCE PER WEEK SOLD: 01/19/2020 [facility] 300 mg 09/29/2019 12:00:00 AM EDT capsule 6 TAKE ONE CAPSULE BY MOUTH TWICE A DAY TAKE ONE CAPSULE BY MOUTH TWICE A DAY SOLD: 09/29/2019 [facility] 250 mg 09/29/2019 12:00:00 AM EDT tablet 6 TAKE 2 TABLETS [500MG] BY MOUTH DAILY TAKE 2 TABLETS [500MG] BY MOUTH DAILY SOLD: 09/29/2019 [facility] 10 mg 09/29/2019 12:00:00 AM EDT tablet 147 TAKE 6 TABLETS BY MOUTH ONCE DAILY FOR 1 WEEK THEN 5 TABLETS ONCE DAILY FOR 1 WEEK THEN 4 TABLETS ONCE DAILY FOR 1 WEEK THEN 3 TABLETS ONCE DAILY FOR 1 WEEK THEN 2 TABLETS ONCE DAILY FOR 1 WEEK THEN 1 TABLET ONCE DAILY FOR 1 WEEK STOP TAKE 6 TABLETS BY MOUTH ONCE DAILY FOR 1 WEEK THEN 5 TABLETS ONCE DAILY FOR 1 WEEK THEN 4 TABLETS ONCE DAILY FOR 1 WEEK THEN 3 TABLETS ONCE DAILY FOR 1 WEEK THEN 2 TABLETS ONCE DAILY FOR 1 WEEK THEN 1 TABLET ONCE DAILY FOR 1 WEEK STOP SOLD: 09/29/2019 [facility] 90 mcg/actuation 09/29/2019 12:00:00 AM EDT HFA aerosol inha ler 8 INHALE TWO PUFFS BY MOUTH EVERY 4 TO 6 HOURS NEEDED WHEEZING INHALE TWO PUFFS BY MOUTH EVERY 4 TO 6 HOURS NEEDED WHEEZING SOLD: 09/29/2019 [facility] 2.5 mg /3 mL (0.083 %) 09/29/2019 12:00:00 AM EDT solu tion for nebulization 75 INHALE 1 VIAL BY NEBULIZER E VERY 4HRS NEEDED SHORTNESS OF BREATH & WHEEZING INHALE 1 VIAL BY NEBULIZER EVERY 4HRS NEEDED SHORTNESS OF BREATH & WHEEZING SOLD: 09/29/2019 [facility] 1 mg 09/28/2019 12:00:00 AM EDT tablet 30 TAKE ONE TABLET BY MOUTH AT BEDTIME TAKE ONE TABLET BY MOUTH AT BEDTIME SOLD: 09/29/2019 [facility] 20 mg 09/28/2019 12:00:00 AM EDT capsule 120 TAKE ONE CAPSULE BY MOUTH TWICE A DAY TAKE ONE CAPSULE BY MOUTH TWICE A DAY SOLD: 09/29/2019 [facility] 40 mg 09/24/2019 12:00:00 AM EDT tablet 90 TAKE ONE TABLET BY MOUTH EVERY DAY TAKE ONE TABLET BY MOUTH EVERY DAY SOLD: 09/29/2019 [facility] 40 mg 09/24/2019 12:00:00 AM EDT tablet,delayed release (DR/EC) 90 TAKE ONE TABLET BY MOUTH EVERY DAY TAKE ONE TABLET BY MOUTH EVERY DAY SOLD: 09/29/2019 [facility] 5 mg 09/23/2019 12:00:00 AM EDT tablet 240 TAKE ONE TABLET BY MOUTH EVERY 3 HOURS NEEDED FOR PAIN MAXIMUM DAILY DOSE = 8 TABLETS TAKE ONE TABLET BY MOUTH EVERY 3 HOURS NEEDED FOR PAIN MAXIMUM DAILY DOSE = 8 TABLETS SOLD: 09/23/2019 [facility] 600 mg 09/21/2019 12:00:00 AM EDT tablet 180 TAKE TWO TABLETS BY MOUTH THREE TIMES A DAY TAKE TWO TABLETS BY MOUTH THREE TIMES A DAY SOLD: 12/21/2019 [facility] 600 mg 09/21/2019 12:00:00 AM EDT tablet 180 TAKE TWO TABLETS BY MOUTH THREE TIMES A DAY TAKE TWO TABLETS BY MOUTH THREE TIMES A DAY SOLD: 09/23/2019 [facility] 30 mg 09/21/2019 12:00:00 AM EDT tablet extended release 60 TAKE ONE TABLET BY MOUTH EVERY 12 HOURS MAXIMUM DAILY DOSE = 2 TABLETS TAKE ONE TABLET BY MOUTH EVERY 12 HOURS MAXIMUM DAILY DOSE = 2 TABLETS SOLD: 09/23/2019 [facility] 600 mg 09/21/2019 12:00:00 AM EDT tablet 180 TAKE TWO TABLETS BY MOUTH THREE TIMES A DAY TAKE TWO TABLETS BY MOUTH THREE TIMES A DAY SOLD: 11/20/2019 [facility] 600 mg 09/21/2019 12:00:00 AM EDT tablet 180 TAKE TWO TABLETS BY MOUTH THREE TIMES A DAY TAKE TWO TABLETS BY MOUTH THREE TIMES A DAY SOLD: 10/22/2019 [facility] Morphine Sulfate 30 MG Extended Release Oral Tablet Morphine Sulfate ER 30 MG Oral Tablet Extended Release (MS CONTIN) Morphine Sulfate ER 30 MG Oral Tablet Extended Release (MS CONTIN) 09/21/2019 12:00:00 AM EDT 30 mg Oral active Myofascial pain syndrome Take 1 tablet by mouth every 12 (twelve) hours , Max Daily Dose: [address] [facility] Myofascial pain syndrome gabapentin 600 MG Oral Tablet Gabapentin 600 MG Oral T ablet (NEURONTIN) Gabapentin 600 MG Oral Tablet (NEURONTIN) 09/21/2019 12:00:00 AM EDT 1200 mg Oral active Take 2 tablets by mo [facility] Three times daily [facility] Oxycodone Hydrochloride 5 MG Oral Tablet oxyCODONE HCl 5 MG Oral Tablet (ROXICODONE) oxyCODONE HCl 5 MG Oral Tablet (ROXICODONE) 09/21/2019 12:00:00 AM EDT 5 mg Oral active Neck pain on left side Take 1 tablet by mouth every 3 (three) hours as needed for Pain, Max Daily Dose: [address] [facility] Neck pain on left side 150 mg 09/14/2019 12:00:00 AM EDT tablet 180 TAKE 3 TABLETS BY MOUTH TWO TIMES A DAY TAKE 3 TABLETS BY MOUTH TWO TIMES A DAY SOLD: 10/22/2019 [facility] 150 mg 09/14/2019 12:00:00 AM EDT tablet 180 TAKE 3 TABLETS BY MOUTH TWO TIMES A DAY TAKE 3 TABLETS BY MOUTH TWO TIMES A DAY SOLD: 02/18/2020 [facility] 150 mg 09/14/2019 12:00:00 AM EDT tablet 180 TAKE 3 TABLETS BY MOUTH TWO TIMES A DAY TAKE 3 TABLETS BY MOUTH TWO TIMES A DAY SOLD: 01/19/2020 [facility] 150 mg 09/14/2019 12:00:00 AM EDT tablet 180 TAKE 3 TABLETS BY MOUTH TWO TIMES A DAY TAKE 3 TABLETS BY MOUTH TWO TIMES A DAY SOLD: 12/21/2019 [facility] oxcarbazepine 150 MG Oral Tablet OXcarbazepine 150 MG Oral Tablet (TRILEPTAL) OXcarbazepine 150 MG Oral Tablet (TRILEPTAL) 09/14/2019 12:00:00 AM EDT active TAKE THREE TABLETS BY MOUTH TWICE A DAY [facility] 150 mg 09/14/2019 12:00:00 AM EDT tablet 180 TAKE 3 TABLETS BY MOUTH TWO TIMES A DAY TAKE 3 TABLETS BY MOUTH TWO TIMES A DAY SOLD: 09/18/2019 [facility] 150 mg 09/14/2019 12:00:00 AM EDT tablet 180 TAKE 3 TABLETS BY MOUTH TWO TIMES A DAY TAKE 3 TABLETS BY MOUTH TWO TIMES A DAY SOLD: 11/20/2019 [facility] 20 mg 09/03/2019 12:00:00 AM EDT capsule 60 TAKE ONE CAPSULE BY MOUTH TWICE A DAY TAKE ONE CAPSULE BY MOUTH TWICE A DAY SOLD: 09/04/2019 [facility] 1 mg 09/03/2019 12:00:00 AM EDT tablet 30 TAKE ONE TABLET BY MOUTH DAILY AT BEDTIME TAKE ONE TABLET BY MOUTH DAILY AT BEDTIME SOLD: 09/04/2019 [facility] 30 mg 08/20/2019 12:00:00 AM EDT tablet extended release 60 TAKE 1 TABLET BY MOUTH EVERY 12 HOURS MAX DAILY DOSE = 2 TABLETS TAKE 1 TABLET BY MOUTH EVERY 12 HOURS MAX DAILY DOSE = 2 TABLETS SOLD: 08/23/2019 [facility] 5 mg 08/20/2019 12:00:00 AM EDT tablet 240 TAKE 1 TABLET BY MOUTH EVERY 3 HOURS NEEDED FOR PAIN MAXIMUM DAILY DOSE = 8 TABLETS TAKE 1 TABLET BY MOUTH EVERY 3 HOURS NEEDED FOR PAIN MAXIMUM DAILY DOSE = 8 TABLETS SOLD: 08/23/2019 [facility] 1-0.05 % 08/03/2019 12:00:00 AM EDT lotion 60 APPLY TO GROIN AREA TWO TIMES A DAY APPLY TO GROIN AREA TWO TIMES A DAY SOLD: 08/05/2019 [facility] 1-0.05 % 08/03/2019 12:00:00 AM EDT lotion 60 APPLY TO GROIN AREA TWO TIMES A DAY APPLY TO GROIN AREA TWO TIMES A DAY SOLD: 09/03/2019 [facility] 5 mg 07/21/2019 12:00:00 AM EDT tablet 240 TAKE 1 TABLET BY MOUTH EVERY 3 HOURS NEEDED FOR PAIN MAXIMUM DAILY DOSE = 8 TABLETS TAKE 1 TABLET BY MOUTH EVERY 3 HOURS NEEDED FOR PAIN MAXIMUM DAILY DOSE = 8 TABLETS SOLD: 07/23/2019 [facility] 30 mg 07/21/2019 12:00:00 AM EDT tablet extended release 60 TAKE 1 TABLET BY MOUTH EVERY 12 HOURS MAXIMUM DAILY DOSE = 2 TABLETS TAKE 1 TABLET BY MOUTH EVERY 12 HOURS MAXIMUM DAILY DOSE = 2 TABLETS SOLD: 07/23/2019 [facility] 30 mg 06/22/2019 12:00:00 AM EDT tablet extended release 60 TAKE 1 TABLET BY MOUTH EVERY 12 HOURS MAXIMUM DAILY DOSE = 2 TABLETS TAKE 1 TABLET BY MOUTH EVERY 12 HOURS MAXIMUM DAILY DOSE = 2 TABLETS SOLD: 06/22/2019 [facility] 5 mg 06/22/2019 12:00:00 AM EDT tablet 240 TAKE 1 TABLET BY MOUTH EVERY 3 HOURS NEEDED FOR PAIN MAXIMUM DAILY DOSE = 8 TABLETS TAKE 1 TABLET BY MOUTH EVERY 3 HOURS NEEDED FOR PAIN MAXIMUM DAILY DOSE = 8 TABLETS SOLD: 06/22/2019 [facility] 25 mg 06/11/2019 12:00:00 AM EST tablet 30 TAKE ONE TABLET BY MOUTH EVERY DAY TAKE ONE TABLET BY MOUTH EVERY DAY SOLD: 08/03/2019 [facility] 25 mg 06/11/2019 12:00:00 AM EST tablet 30 TAKE ONE TABLET BY MOUTH EVERY DAY TAKE ONE TABLET BY MOUTH EVERY DAY SOLD: 07/08/2019 [facility] 25 mg 06/11/2019 12:00:00 AM EST tablet 30 TAKE ONE TABLET BY MOUTH EVERY DAY TAKE ONE TABLET BY MOUTH EVERY DAY SOLD: 06/11/2019 [facility] 20 mg 06/11/2019 12:00:00 AM EST tablet 30 TAKE 1 TABLET [20MG TOTAL] BY MOUTH DAILY TAKE 1 TABLET [20MG TOTAL] BY MOUTH DAILY SOLD: 07/10/2019 [facility] 20 mg 06/11/2019 12:00:00 AM EST tablet 30 TAKE 1 TABLET [20MG TOTAL] BY MOUTH DAILY TAKE 1 TABLET [20MG TOTAL] BY MOUTH DAILY SOLD: 08/08/2019 [facility] 20 mg 06/11/2019 12:00:00 AM EST tablet 30 TAKE 1 TABLET [20MG TOTAL] BY MOUTH DAILY TAKE 1 TABLET [20MG TOTAL] BY MOUTH DAILY SOLD: 06/11/2019 [facility] Diazepam 5 MG Oral Tablet diazePAM (VALIUM) tablet 5 m g diazePAM (VALIUM) tablet 5 mg 06/03/2019 01:45:00 PM EST 5 mg Oral completed 5 mg, Oral, Once, Sat06/03/19 at 1345, For [address] [facility] Medication administered onsite 20 mg 06/03/2019 12:00:00 AM EST capsule 60 TAKE ONE CAPSULE BY MOUTH TWICE A DAY TAKE ONE CAPSULE BY MOUTH TWICE A DAY SOLD: 06/30/2019 [facility] 20 mg 06/03/2019 12:00:00 AM EST capsule 60 TAKE ONE CAPSULE BY MOUTH TWICE A DAY TAKE ONE CAPSULE BY MOUTH TWICE A DAY SOLD: 06/03/2019 [facility] 20 mg 06/03/2019 12:00:00 AM EST capsule 60 TAKE ONE CAPSULE BY MOUTH TWICE A DAY TAKE ONE CAPSULE BY MOUTH TWICE A DAY SOLD: 08/03/2019 [facility] 40 mg 06/03/2019 12:00:00 AM EST tablet,delayed release (DR/EC) 90 TAKE ONE TABLET BY MOUTH EVERY DAY TAKE ONE TABLET BY MOUTH EVERY DAY SOLD: 06/03/2019 [facility] 40 mg 06/03/2019 12:00:00 AM EST tablet 90 TAKE ONE TABLET BY MOUTH EVERY DAY TAKE ONE TABLET BY MOUTH EVERY DAY SOLD: 06/03/2019 [facility] 5 mg 06/03/2019 12:00:00 AM EST tablet 90 TAKE ONE TABLET BY MOUTH EVERY DAY TAKE ONE TABLET BY MOUTH EVERY DAY SOLD: 06/03/2019 [facility] 1 mg 06/03/2019 12:00:00 AM EST tablet 90 TAKE ONE TABLET BY MOUTH DAILY AT BEDTIME TAKE ONE TABLET BY MOUTH DAILY AT BEDTIME SOLD: 06/03/2019 [facility] 5 mg 05/23/2019 12:00:00 AM EST tablet 240 TAKE ONE TABLET BY MOUTH EVERY 3 HOURS NEEDED FOR PAIN MAXIMUM DAILY DOSE = 8 TABLETS TAKE ONE TABLET BY MOUTH EVERY 3 HOURS NEEDED FOR PAIN MAXIMUM DAILY DOSE = 8 TABLETS SOLD: 05/24/2019 [facility] 30 mg 05/23/2019 12:00:00 AM EST tablet extended release 60 TAKE ONE TABLET BY MOUTH EVERY 12 HOURS MAXIMUM DAILY DOSE = 2 TABLETS TAKE ONE TABLET BY MOUTH EVERY 12 HOURS MAXIMUM DAILY DOSE = 2 TABLETS SOLD: 05/24/2019 [facility] Morphine Sulfate 30 MG Extended Release Oral Tablet Morphine Sulfate ER 30 MG Oral Tablet Extended Release (MS CONTIN) Morphine Sulfate ER 30 MG Oral Tablet Extended Release (MS CONTIN) 05/20/2019 12:00:00 AM EST 30 mg Oral active Myofascial pain syndrome Take 1 tablet by mouth every 12 (twelve) hours , Max Daily Dose: [address] [facility] Myofascial pain syndrome Oxycodone Hydrochloride 5 MG Oral Tablet oxyCODONE HCl 5 MG Oral Tablet (ROXICODONE) oxyCODONE HCl 5 MG Oral Tablet (ROXICODONE) 05/20/2019 12:00:00 AM EST 5 mg Oral active Neck pain on left side Take 1 tablet by mouth every 3 (three) hours as needed for Pain, Max Daily Dose: [address] [facility] Neck pain on left side medical marijuana 05/13/2019 12:00:00 AM EST Oral completed Take by mouth every hour as needed [facility] 1-0.05 % 05/12/2019 12:00:00 AM EST lotion 60 APPLY TO GROIN AREA TWO TIMES A DAY APPLY TO GROIN AREA TWO TIMES A DAY SOLD: 06/11/2019 [facility] 1-0.05 % 05/12/2019 12:00:00 AM EST lotion 60 APPLY TO GROIN AREA TWO TIMES A DAY APPLY TO GROIN AREA TWO TIMES A DAY SOLD: 05/13/2019 [facility] 1-0.05 % 05/12/2019 12:00:00 AM EST lotion 60 APPLY TO GROIN AREA TWO TIMES A DAY APPLY TO GROIN AREA TWO TIMES A DAY SOLD: 07/08/2019 [facility] 500 mg 04/29/2019 12:00:00 AM EST tablet 20 TAKE ONE TABLET BY MOUTH TWICE A DAY FOR 10 DAYS TAKE ONE TABLET BY MOUTH TWICE A DAY FOR 10 DAYS SOLD: 04/29/2019 [facility] 10 mg 04/29/2019 12:00:00 AM EST tablet 30 TAKE ONE TABLET BY MOUTH THREE TIMES A DAY TAKE ONE TABLET BY MOUTH THREE TIMES A DAY SOLD: 04/29/2019 [facility] 5 mg 04/24/2019 12:00:00 AM EST tablet 240 TAKE ONE TABLET BY MOUTH EVERY 3 HOURS NEEDED FOR PAIN MAXIMUM DAILY DOSE = EIGHT TABLETS TAKE ONE TABLET BY MOUTH EVERY 3 HOURS NEEDED FOR PAIN MAXIMUM DAILY DOSE = EIGHT TABLETS SOLD: 04/25/2019 [facility] 30 mg 04/24/2019 12:00:00 AM EST tablet extended release 60 TAKE ONE TABLET BY MOUTH EVERY 12 HOURS MAXIMUM DAILY DOSE = TWO TABLETS TAKE ONE TABLET BY MOUTH EVERY 12 HOURS MAXIMUM DAILY DOSE = TWO TABLETS SOLD: 04/24/2019 [facility] Oxycodone Hydrochloride 5 MG Oral Tablet oxyCODONE HCl 5 MG Oral Tablet (ROXICODONE) oxyCODONE HCl 5 MG Oral Tablet (ROXICODONE) 04/23/2019 12:00:00 AM EST 5 mg Oral aborted Neck pain on left side Take 1 tablet by mouth every 3 (three) hours as needed for Pain, Max Daily Dose: [address] [facility] Neck pain on left side Morphine Sulfate 30 MG Extended Release Oral Tablet Morphine Sulfate ER 30 MG Oral Tablet Extended Release (MS CONTIN) Morphine Sulfate ER 30 MG Oral Tablet Extended Release (MS CONTIN) 04/23/2019 12:00:00 AM EST 30 mg Oral aborted Myofascial pain syndrome Take 1 tablet b y mouth every 12 (twelve) hours , Max Daily Dose: [address] [facility] Myofascial pain syndrome 20 mg 04/14/2019 12:00:00 AM EST capsule 60 TAKE ONE CAPSULE BY MOUTH TWICE A DAY TAKE ONE CAPSULE BY MOUTH TWICE A DAY SOLD: 04/15/2019 [facility] 1 mg 04/14/2019 12:00:00 AM EST tablet 30 TAKE ONE TABLET BY MOUTH AT BEDTIME TAKE ONE TABLET BY MOUTH AT BEDTIME SOLD: 04/15/2019 [facility] 1,250 mcg (50,000 unit) 04/11/2019 12:00:00 AM EST capsule 12 TAKE ONE CAPSULE BY MOUTH ONCE PER WEEK TAKE ONE CAPSULE BY MOUTH ONCE PER WEEK SOLD: 08/03/2019 [facility] 1,250 mcg (50,000 unit) 04/11/2019 12:00:00 AM EST capsule 12 TAKE ONE CAPSULE BY MOUTH ONCE PER WEEK TAKE ONE CAPSULE BY MOUTH ONCE PER WEEK SOLD: 04/15/2019 [facility] 24 HR Nicotine 0.292 MG/HR Transdermal P atch Nicotine 7 MG/24HR Transdermal Patch 24 Hour (NICODERM CQ) Nicotine 7 MG/24HR Transdermal Patch 24 Hour (NICODERM CQ) 04/09/2019 12:00:00 AM EST 1 {patch} Transdermal active Place 1 patch onto the skin daily [facility] Varenicline Tartrate 0.5 MG X 11 & 1 MG X 42 Oral (BARBIE NTIX STARTING MONTH ) [id number] 04/09/2019 12:00:00 AM EST active Take one 0.5 mg tablet PO daily for 3 days, then increase to one 0.5 mg tablet BID for 4 days, then increase to one [address] [facility] 24 HR Nicotine 0.292 MG/HR Transdermal P atch nicotine (NICODERM CQ) 7 MG/24HR 1 patch nicotine (NICODERM CQ) 7 MG/24HR 1 patch 04/08/2019 09:00:00 AM EST 1 {patch} Transdermal active 1 patch, Transdermal, Administer over 24 Hours, Daily Standard, First dose on Sat04/08/19 at 0900, For [address] [facility] Medication administered onsite Prednisone 20 MG Oral Tablet predniSONE (DELTASONE) ta blet 40 mg predniSONE (DELTASONE) tablet 40 mg 04/08/2019 09:00:00 AM EST 40 mg Oral aborted 40 mg, Oral, Daily Standard, First dose on Sat04/08/19 at 0900, For 7 days
Take with food.
[facility] Medication administered onsite oxcarbazepine 150 MG Oral Tablet OXcarbazepine (TRILEP VIET) tablet 450 mg OXcarbazepine (TRILEPTAL) tablet 450 mg 04/07/2019 09:15:00 PM EST 450 mg Oral active 450 mg, Oral, 2 Times Daily, First dose on Sat04/07/19 at 2115, For [address] [facility] Medication administered onsite pantoprazole 40 MG Delayed Release Oral Tablet pantoprazole (PROTONIX) EC tablet 40 mg pantoprazole (PROTONIX) EC tablet 40 mg 04/07/2019 09:00:[address] 40 mg Oral active 40 mg, Ora l, Daily Standard, First dose on Sat04/07/19 at 0900, For 30 days
Do not crush or chew
[facility] Medication administered onsite Pravastatin Sodium 20 MG Oral Tablet pravastatin (PRAV ACHOL) tablet 40 mg pravastatin (PRAVACHOL) tablet 40 mg 04/07/2019 09:00:00 AM EST 40 mg Oral active 40 mg, Oral, Mariana ly Standard, First dose on Sat04/07/19 at 0900, For [address] [facility] Medication administered onsite POLYETHYLENE GLYCOL 3350 142 MG/ML Oral Solution polyethylene glycol (MIRALAX) packet 17 g polyethylene glycol (MIRALAX) packet 17 g 04/07/2019 0 9:00:00 AM EST 17 g Oral active 17 g, Or al, Daily Standard, First dose on Sat04/07/19 at 0900, For 30 days
Mix in 8 ounces of water, juice or milk. Avoid use in patients who require thickened liquids due to potential increased risk for aspiration.
[facility] Medication administered onsite sennosides, CARE HOME 8.6 MG Oral Tablet senna 8.6 MG 2 tablet sen na 8.6 MG 2 tablet 04/06/2019 10:00:00 PM EST 2 {tbl} Oral active 2 tablet, Oral, Nightly, First dose on Sat04/06/19 at 2200, For [address] [facility] Medication administered onsite OXcarbazepine (TRILEPTAL) tablet 450 mg 04/06/2019 09:00:0 0 PM EST 450 mg Oral aborted 450 mg, Oral, 2 Times Daily, First dose on Sat04/06/19 at 2100, For [address] [facility] Medication administered onsite Fluoxetine 20 MG Oral Capsule fluoxetine (PROZAC) caps ule 20 mg fluoxetine (PROZAC) capsule 20 mg 04/06/2019 09:00:00 PM EST 20 mg Oral active 20 mg, Oral, 2 Times Daily, First dose (after last modification) on Sat04/06/19 at 2100, For [address] [facility] Medication administered onsite heparin (porcine) 5000 UNIT/ML injection 5,000 Units [id number] 04/06/2019 09:00:00 PM EST 5000 U Subcutaneous active 5,000 Units, Subcutaneous, 2 Times Daily, First dose on Sat04/06/19 at 2100, For [address] [facility] Medication administered onsite sulfamethoxazole-trimethoprim (BACTRIM) 340 mg in dextrose 5 % 500 mL (0.68 mg/mL) IVPB 04/06/2019 05:00:00 PM EST Intravenous aborted 340 mg (rounded from 342.5 mg = 15 mg/kg/day of trimethoprim 68.5 kg), Intravenous, Administer over 90 Minutes, Every 8 hours, First dose on Sat04/06/19 at 1700, For 7 days
Dose calculated by mg of trimethoprim. This medication is located in the [facility] library as [id number]
[facility] Medication administered onsite gabapentin 400 MG Oral Capsule gabapentin (NEURONTIN) capsule 1,200 mg gabapentin (NEURONTIN) capsule 1,200 mg 04/06/2019 05:00:00 PM EST 1200 mg Oral active 1,200 mg, Oral , Three Times Daily Standard, First dose on Sat04/06/19 at 1700, For [address] [facility] Medication administered onsite ropinirole 1 MG Oral Tablet ropinirole (REQUIP) tablet 1 mg ropinirole (REQUIP) tablet 1 mg 04/06/2019 05:00:00 PM EST 1 mg Oral active 1 mg, Oral, Three Times Daily Standard, First dose on Sat04/06/19 at 1700, For [address] [facility] Medication administered onsite Methylprednisolone 40 MG/ML Injectable S olution methylPREDNISolone sodium succinate (SOLU-MEDROL) injection 40 mg methylPREDNISolone sodium succinate (SOLU-MEDROL) injection 40 mg 04/06/2019 04:00:00 PM EST 40 mg I ntravenous aborted 40 mg, Intraveno us, Daily Standard, First dose on Sat04/06/19 at 1600, For [address] [facility] Medication administered onsite iohexol (OMNIPAQUE) 350 MG/ML contrast injection 100 mL [id number] 04/06/2019 01:45:00 PM EST 100 mL Given by IV completed 100 mL, Given by IV, 1 TIME IMAGING, Sat04/06/19 at 1345, For [address] [facility] Medication administered onsite sodium chloride 0.9 % bolus 1,000 mL [id number] 04/06/2019 12:00: 00 PM EST 1000 mL Intravenous completed 1,000 mL , Intravenous, Once, Sat04/06/19 at 1200, For [address] [facility] Medication administered onsite sodium chloride 0.9 % bolus 1,000 mL [id number] 04/06/2019 11:30: 00 AM EST 1000 mL Intravenous completed 1,000 mL , Intravenous, Once, Sat04/06/19 at 1130, For [address] [facility] Medication administered onsite azithromycin (ZITHROMAX) 500 mg in sodium chloride 0.9 % 250 mL (2 mg/mL) IVPB 04/06/2019 10:45:00 AM EST 500 mg Intravenous aborte d 500 mg, Intravenous, at 250 mL/hr, Every 24 hours, First dose on Sat04/06/19 at 1045, For [address] [facility] Medication administered onsite vancomycin (VANCOCIN) in D5W infusion 1,000 mg/200 mL (premi x) [id number] 04/06/2019 10:45:00 AM EST 1000 mg Intravenous aborted 1,000 mg, Intravenous, Administer over 60 Minutes, Every 12 hours, First dose on Sat04/06/19 at 1045, For 3 days
Please do not administer prior to blood culture
[facility] Medication administered onsite Piperacillin 3000 MG / tazobactam 375 MG Injection piperacillin-tazobactam (ZOSYN) IVPB 3.375 g (premix) piperacillin-tazobactam (ZOSYN) IVPB 3.3 75 g (premix) 04/06/2019 10:45:00 AM EST 3.375 g Intravenous abo rted 3.375 g, Intravenous, Administer over 4 Hours, Every 8 hours, First dose on Sat04/06/19 at 1045, For 7 days
Please do not administer prior to blood cultures
[facility] Medication administered onsite Morphine Sulfate 30 MG Extended Release Oral Tablet morphine sulfate ER (MS CONTIN) 12 hr tablet 30 mg morphine sulfate ER (MS CONTIN) 12 hr tablet 30 mg 04/06/2019 10:30:00 AM EST 30 mg Oral active 30 mg, Oral, Every 12 hours, First dose on Sat04/06/19 at 1030, For [address] [facility] Medication administered onsite Acetaminophen 325 MG Oral Tablet acetaminophen (TYLENO L) tablet 650 mg acetaminophen (TYLENOL) tablet 650 mg 04/06/2019 10:26:39 AM EST 65 0 mg Oral active 650 mg, Oral, E very 6 hours PRN, Mild Pain (Pain Scale Score 1- 3), Starting Sat04/06/19 at 1026, For 30 days
Maximum daily dose of acetaminophen is 3,000 mg from all sources in [address]
[facility] Medication administered onsite Oxycodone Hydrochloride 5 MG Oral Tablet oxyCODONE (ROXICODONE) immediate release tablet 5 mg oxyCODONE (ROXICODONE) immediate release tablet 5 mg 04/06/2019 10:21:59 AM EST 5 mg Oral active 5 mg, Oral, Every 3 hours PRN, Moderate Pain (Pain Scale Score 4-6), Starting Sat04/06/19 at 1021, For 3 days
Oxycodone immediate release is limited to 10 mg per dose. Higher doses ( only) require Pain Service consultation and approval.
[facility] Medication administered onsite Albuterol 0.83 MG/ML Inhalant Solution a lbuterol (PROVENTIL) nebulizer solution 2.5 mg albuterol (PROVENTIL) nebulizer solution 2.5 mg 2018 09:15:00 AM EST 2.5 mg Nebulization completed 2 .5 mg, Nebulization, Once, Sat04/06/19 at 0915, For 1 dose
For Adults Q8 Hours is Hospital Standard, all orders will be changed to this unless NESHA is selected 'Yes' below.
[facility] Medication administered onsite NaCl infusion 0.9 % [id number] 04/06/2019 07:45:00 AM EST Intravenous aborted at 30 mL/hr, Intrave nous, Continuous, Starting Sat04/06/19 at 0745, For [address] [facility] Medication administered onsite Famotidine 0.4 MG/ML Injectable Solution famotidine (PEPCID) in sodium chloride 0.9 % IVPB 20 mg (premix) famotidine (PEPCID) in sodium chloride 0 .9 % IVPB 20 mg (premix) 04/06/2019 07:45:00 AM EST 20 mg Intravenous c ompleted 20 mg, Intravenous, Administer over 15 Minutes, Once, Sat04/06/19 at 0745, For 1 dose
Infuse over 30 min prior to start of infusion.
[facility] Medication administered onsite Morphine Sulfate 30 MG Extended Release Oral Tablet Morphine Sulfate ER 30 MG Oral Tablet Extended Release (MS CONTIN) Morphine Sulfate ER 30 MG Oral Tablet Extended Release (MS CONTIN) 03/26/2019 12:00:00 AM EST 30 mg Oral active Myofascial pain syndrome Take 1 tablet by mouth every 12 (twelve) hours , Max Daily Dose: [address] [facility] Myofascial pain syndrome Oxycodone Hydrochloride 5 MG Oral Tablet oxyCODONE HCl 5 MG Oral Tablet (ROXICODONE) oxyCODONE HCl 5 MG Oral Tablet (ROXICODONE) 03/26/2019 12:00:00 AM EST 5 mg Oral active Neck pain on left side Take 1 tablet by mouth every 3 (three) hours as needed for Pain, Max Daily Dose: [address] [facility] Neck pain on left side 5 mg 03/25/2019 12:00:00 AM EST tablet 240 TAKE ONE TABLET BY MOUTH EVERY 3 HOURS NEEDED FOR PAIN MAXIMUM DAILY DOSE = 8 TABLETS TAKE ONE TABLET BY MOUTH EVERY 3 HOURS NEEDED FOR PAIN MAXIMUM DAILY DOSE = 8 TABLETS SOLD: 03/26/2019 [facility] 30 mg 03/25/2019 12:00:00 AM EST tablet extended release 60 TAKE ONE TABLET BY MOUTH EVERY 12 HOURS MAXIMUM DAILY DOSE = 2 TABLETS TAKE ONE TABLET BY MOUTH EVERY 12 HOURS MAXIMUM DAILY DOSE = 2 TABLETS SOLD: 03/26/2019 [facility] 150 mg 03/23/2019 12:00:00 AM EST tablet 180 TAKE THREE TABLETS BY MOUTH TWICE A DAY TAKE THREE TABLETS BY MOUTH TWICE A DAY SOLD: 03/25/2019 [facility] 150 mg 03/23/2019 12:00:00 AM EST tablet 180 TAKE THREE TABLETS BY MOUTH TWICE A DAY TAKE THREE TABLETS BY MOUTH TWICE A DAY SOLD: 08/19/2019 [facility] 150 mg 03/23/2019 12:00:00 AM EST tablet 180 TAKE THREE TABLETS BY MOUTH TWICE A DAY TAKE THREE TABLETS BY MOUTH TWICE A DAY SOLD: 07/23/2019 [facility] 150 mg 03/23/2019 12:00:00 AM EST tablet 180 TAKE THREE TABLETS BY MOUTH TWICE A DAY TAKE THREE TABLETS BY MOUTH TWICE A DAY SOLD: 04/24/2019 [facility] 150 mg 03/23/2019 12:00:00 AM EST tablet 180 TAKE THREE TABLETS BY MOUTH TWICE A DAY TAKE THREE TABLETS BY MOUTH TWICE A DAY SOLD: 05/22/2019 [facility] 150 mg 03/23/2019 12:00:00 AM EST tablet 180 TAKE THREE TABLETS BY MOUTH TWICE A DAY TAKE THREE TABLETS BY MOUTH TWICE A DAY SOLD: 06/21/2019 [facility] oxcarbazepine 150 MG Oral Tablet OXcarbazepine 150 MG Oral Tablet (TRILEPTAL) OXcarbazepine 150 MG Oral Tablet (TRILEPTAL) 03/21/2019 12:00:00 AM EST 450 mg Oral active Take 3 tablets by mouth Two Times Daily [facility] Prednisone 10 MG Oral Tablet Prednisone 02/05/2019 12:00:00 AM EDT ORAL completed [facility] ([facility], ) 1-0.05 % 01/28/2019 12:00:00 AM EDT lotion 60 APPLY TO GROIN AREA TWO TIMES A DAY APPLY TO GROIN AREA TWO TIMES A DAY SOLD: 04/15/2019 [facility] 600 mg 11/20/2018 12:00:00 AM EDT tablet 180 TAKE TWO TABLETS BY MOUTH THREE TIMES A DAY TAKE TWO TABLETS BY MOUTH THREE TIMES A DAY SOLD: 03/25/2019 [facility] 600 mg 11/20/2018 12:00:00 AM EDT tablet 180 TAKE TWO TABLETS BY MOUTH THREE TIMES A DAY TAKE TWO TABLETS BY MOUTH THREE TIMES A DAY SOLD: 04/24/2019 [facility] gabapentin 600 MG Oral Tablet gabapentin (NEURONTIN) 6 00 MG tablet gabapentin (NEURONTIN) 600 MG tablet 11/19/2018 12:00:00 AM EDT 1200 mg Oral active Take 2 tablets by mouth Three times frannie y [facility] 600 mg 08/29/2018 12:00:00 AM EDT tablet 180 TAKE TWO TABLETS BY MOUTH THREE TIMES A DAY TAKE TWO TABLETS BY MOUTH THREE TIMES A DAY SOLD: 08/03/2019 [facility] Ibuprofen 800 MG Oral Tablet ibuprofen (ADVIL,MOTRIN) 800 MG tablet ibuprofen (ADVIL,MOTRIN) 800 MG tablet 05/16/2018 12:00:00 AM EST 800 mg Oral aborted Take 800 mg by mouth Three times daily [facility] tizanidine 4 MG Oral Capsule tizanidine (ZANAFLEX) 4 M G capsule tizanidine (ZANAFLEX) 4 MG capsule 08/11/2017 12:00:00 AM EDT aborted TAKE ONE CAPSULE BY MOUTH THREE TIMES A DAY NEEDED FOR MUSCLE SPASMS (MAY TAKE EXTRA 4 MG AT NIGHT NEEDED) [facility] Albuterol Sulfate HFA 108 (90 Base) MCG/ ACT Inhalation Aerosol Solution (PROVENTIL HFA) 2038-9460-95 2 {puff} Inhalation aborted Inhale 2 puffs into the lungs every 6 (six) hours as needed for Wheezing or Shortness of Breath [facility] Prednisone 10 MG Oral Tablet predniSONE 10 MG Oral Tab let (DELTASONE) predniSONE 10 MG Oral Tablet (DELTASONE) 40 mg Oral aborted Take 40 mg [address] mouth daily [facility] Prednisone 10 MG Oral Tablet predniSONE 10 MG Oral Tab let (DELTASONE) predniSONE 10 MG Oral Tablet (DELTASONE) 10 mg Oral aborted Take 10 mg [address] mouth [address] [facility] Amlodipine 5 MG Oral Tablet amlodipine (NORVASC) 5 MG tablet amlodipine (NORVASC) 5 MG tablet 5 mg Oral aborted Ta ke 5 mg by mouth daily. [facility] Insurance Providers Payer name Policy type / Coverage type Policy ID Covered green party ID Covered green party's relationship to gomez Policy Gomez Plan Information [facility] [id number] [facility] EMPIRE KER[place] DIV [id number] HU2 [id number] MEDICARE [id number] SP [id number] MEDICARE A [id number] Self [id number] EMPIRE PLAN [facility] U [id number] Spouse [id number] [facility] O [id number] S [id number] MEDICARE C [id number] S [id number] EXCELLUS BC [id number] Spo [id number] MEDICARE [id number] Lily [id number] EMPIRE ([facility]) O [id number] S [id number] [facility] Medigap Part B [id number] Family Dependent [id number] Medicare Medicare Primary [id number] Self 3 [id number] [facility] Medigap Part B [id number] Family Dependent [id number] Medicare Medicare Primary [id number] Self 3 [id number] [facility] [id number] [id number] MEDICARE A [id number] Self [id number] A EXCELLUS BCBS [id number] Spo [id number] BCBS EMPIRE [place] DIV UNAVAILABLE SP UNAVAILABLE MEDICARE [id number] SP [id number] A [employer] HE[employer] [id number] MEDICARE C [id number] S [id number] A UNITED [employer] O [id number] P [id number] [place] Medicare Primary Self [employer] [facility] (HMO) Family Dependent BCBS EMPIRE KEREN DIV [id number] [employer] [facility] Maintenance Organization (HMO) Family Dependent EMPIRE ([facility]) P UNAVAILABLE P UNAVAILABLE [facility] EMPIRE PLAN O [id number] U [id number] [employer] CHOICE O [id number] U [id number] Problems, Conditions, and Diagnoses Code Display Name Description Problem Type Effective Dates Data Source(s) Z02.89 Encounter for other administrative exami nations Encounter for other administrative examinations Diagnosis 04/12/2020 07:32:34 AM [facility] M54.2 Cervicalgia Cervicalgia Diagnosis 04/12/2020 07:32:34 AM [facility] M79.18 Myalgia, other site Myalgia, other site Diagnosis 1 04/23/2019 10:25:26 AM [facility] R06.2 Wheezing Wheezing Diagnosis 12/22/2019 02:33:09 PM ED [facility] M35.9 Systemic involvement of connective tissu e, unspecified Systemic involvement of connective tissue, unspecified Diagnosis 12/22/19 20 02:33:[address] [facility] telemed fol telemed fol Diagnosis 2019 08:12:18 AM [facility] J96.21 Acute and chronic respiratory failure wi th hypoxia Acute and chronic respiratory failure with hypoxia Diagnosis 10/23/2019 10:08:41 PM [facility] F17.210 Nicotine dependence, cigarettes, uncompl icated Nicotine dependence, cigarettes, uncomplicated Diagnosis 10/23/2019 07:46:[address] [facility] R00.0 Tachycardia, unspecified Tachycardia, unspecified Diag nosis 10/23/2019 07:46:[address] [facility] R50.9 Fever, unspecified Fever, unspecified Diagnosis 07:46:[address] [facility] J18.9 Pneumonia, unspecified organism Pneumonia, unspecified organism Diagnosis 10/23/2019 07:46:[address] [facility] R06.03 Acute respiratory distress Acute respiratory distress Diagnosis 10/23/2019 07:46:[address] [facility] Z20.828 Contact with and (suspected) exposure to other viral communicable diseases Contact with and (suspected) exposure to other viral communicable diseases Diagnosis 10/23/2019 07:46:33 PM EDT [facility] J96.90 Respiratory failure, unspeci fied, unspecified whether with hypoxia or hypercapnia Respiratory failure, unspecified, unspec ified whether with hypoxia or hypercapnia Diagnosis 10/23/2019 07:46:33 PM EDT [facility] SOB and fever SOB and fever Diagnosis 10/23/2019 07:46:[address] [facility] F17.200 Nicotine dependence, unspecified, uncomp licated Nicotine dependence, unspecified, uncomplicated Diagnosis 10/21/2019 01:16:39 PM EDT [facility] J45.991 Cough variant asthma Cough variant asthma Diagnosis 10/21/2019 11:52:[address] [facility] I21.4 Non-ST elevation (NSTEMI) myocardial inf arction Non-ST elevation (NSTEMI) myocardial inf Diagnosis 08/13/2019 09:56:[address] [facility] E78.5 Hyperlipidemia, unspecified Hyperlipidemia, unspecifie d Diagnosis 08/13/2019 09:56:[address] [facility] I27.20 Pulmonary hypertension, unspecified Pulmonary hy pertension, unspecified Diagnosis 08/13/2019 09:26:10 AM EDT [facility] R06.09 Other forms of dyspnea Other forms of dyspnea Diagnosi s 08/13/2019 09:26:[address] [facility] I50.32 Chronic diastolic (congestive) heart rahul lure Chronic diastolic (congestive) heart rahul Diagnosis 06/25/2019 09:20:48 AM EDT [facility] J96.01 Acute respirarory failure w/ hypo ezio J96.01 Acute respirarory failure w/ hypoxia Diagnosis 06/03/2019 12:46:57 PM [facility] hosp fol hosp fol Diagnosis 05/14/2019 08:06:59 AM [facility] Acute respiratory failure with hypoxia Acute res piratory failure with hypoxia Diagnosis 04/09/2019 11:00:00 AM [facility] Trigeminal neuralgia Trigeminal neuralgia Diagnosis 04/09/2019 11:00:00 AM [facility] AP1 AP1 Diagnosis 04/09/2019 11:00:00 AM [facility] R91.8 Other nonspecific abnormal finding of cathy ng field Other nonspecific abnormal finding of lung field Diagnosis 04/06/2019 04:32:01 PM [facility] G62.81 Critical illness polyneuropathy Critical illness polyneuropathy Diagnosis 04/06/2019 12:10:36 PM [facility] R65.20 Severe sepsis without septic shock Severe sepsis without septic shock Diagnosis 04/06/2019 12:10:36 PM [facility] A02.1 Salmonella sepsis Salmonella sepsis Diagnosis 04/06/2019 12:10:36 PM [facility] J96.01 Acute respiratory failure with hypoxia A cute respiratory failure with hypoxia Diagnosis 04/06/2019 10:46:13 AM [facility] I50.32 Chronic diastolic (congestive) heart rahul lure Chronic diastolic (congestive) heart failure Diagnosis 04/06/2019 10:46:04 AM [facility] Surgeries/Procedures Procedure Description Date Indications Data Source(s) COMPLETE PFT'S, PRE & POST BRONCHODILATOR (SPIROMETRY, LUNG VOLUMES, D <td><content ID="[id number]">COMPLETE PFT'S, PRE & POST BRONCHODILATOR (SPIROMETRY, LUNG VOLUMES, D</content></td><td>Routine</td><td>02/26/2020 8:10 AM EST</td><td><paragraph>Ground glass opacity present on imaging of lung</paragraph></td><td></td> 02/26/2020 08:10:59 AM EST Ground glass opacity present on imaging of lung [facility] Ground glass opacity present on imaging of lung SEDIMENTATION RATE RBC AUTOMATED SEDIMENTATION RATE, AUTOMATED Routine 12/22/2019 4:23 PM EDT Autoimmune disease 12/22/2019 04:23:[address] [facility] Autoimmune disease BLOOD COUNT COMPLETE AUTO&AUTO DIFRNTL WBC COUNT CBC AND DIFFER ENTIAL Routine 12/22/2019 4:23 PM EDT Autoimmune disease 12/22/2019 04:23:[address] [facility] Autoimmune disease RHEUMATOID FACTOR QUANTITATIVE RHEUMATOID FACTOR Routine 12/22/2019 4:23 PM EDT Autoimmune disease 12/22/2019 04:23:00 [address] Autoimmune disease [facility] Autoimmune disease CREATINE KINASE TOTAL CK Routine 12/22/2019 4:23 P M EDT Autoimmune disease 12/22/2019 04:23:00 [address] Autoimmune disease [facility] Autoimmune disease PROTHROMBIN TIME PROTIME INR Routine 10/28/2019 5:54 AM EDT 10/28/2019 09:54:[address] [facility] BLOOD COUNT COMPLETE AUTO&AUTO DIFRNTL WBC COUNT CBC AND DIFFER ENTIAL Routine 10/28/2019 5:54 AM EDT 10/28/2019 09:54:[address] [facility] BLOOD COUNT COMPLETE AUTO&AUTO DIFRNTL WBC COUNT CBC AND DIFFER ENTIAL Routine 10/27/2019 3:57 AM EDT 10/27/2019 07:57:[address] [facility] IAADI PNEUMOCUSTIS CARINII PNEUMOCYSTIS SMEAR BY DFA Routine 10/26/2019 5:05 PM EDT 10/26/2019 09:05:00 PM EDT [facility] VIRUS TISS CUL INOCULATION CYTOPATHIC EFFECT GENERAL VIRAL CULT URE Routine 10/26/2019 4:50 PM EDT 10/26/2019 08:50:[address] [facility]UID[facility] SAMPL 1/2 NODE STATION/STRUX [facility] EBUS GUIDED SAMPL 1/2 NODE STATION/STRUX 10/26/2019 2:08 PM EDT acute hypoxic respiratory failure 10/26/2019 06:08:00 PM EDT - 10/26/2019 06:45:[address] [facility] BRONCHOSCOPY, RIGID/FLEX, W/WO FLUORO GUID W/BRONCHIAL ALVEOLAR LAVAGE BRONCHOSCOPY, RIGID/FLEX, W/WO FLUORO GUID W/BRONCHIAL ALVEOLAR LAVAGE 10/26/2019 2:08 PM EDT acute hypoxic respiratory failure 10/26/2019 06:08:00 PM EDT - 10/26/2019 [facility]LO[facility] COMPLETE AUTO&AUTO DIFRNTL WBC COUNT CBC AND DIFFER ENTIAL Routine 10/26/2019 4:52 AM EDT 10/26/2019 08:52:[address] [facility] BASIC METABOLIC PANEL CALCIUM TOTAL BASIC METABOLIC PANEL Routi ne 10/26/2019 4:52 AM EDT 10/26/2019 08:52:00 AM EDT [facility] CYTOLOGY NON GYNECOLOGICAL CYTOLOGY NON GYNECOLOGICAL Routine 10/26/2019 12:00 AM EDT 10/26/2019 04:00:00 AM EDT [facility] PROCALCITONIN (PCT) PROCALCITONIN Routine 10/25/2019 3:03 AM EDT 10/25/2019 07[facility]03[facility] BLOOD [facility] COMPLETE AUTO&AUTO DIFRNTL WBC COUNT CBC AND DIFFER ENTIAL Routine 10/25/2019 3:03 AM EDT 10/25/2019 07:03:00 AM [facility] ANGIOTENSIN I-CONVERTING ENZYME ANGIOTENSIN CONVERTING ENZYME R outine 10/25/2019 3:03 AM EDT 10/25/2019 07:03:00 AM [facility] CALCIUM IONIZED CALCIUM, IONIZED Routine 10/25/2019 3:03 AM EDT 10/25/2019 07:03:00 AM [facility] BASIC METABOLIC PANEL CALCIUM TOTAL BASIC METABOLIC PANEL Routi ne 10/25/2019 3:03 AM EDT 10/25/2019 07:03:00 AM EDT [facility] IADNA S AUREUS AMPLIFIED PROBE TQ STAPH AUREUS MRSA PCR Routine 10/24/2019 11:52 AM EDT 10/24/2019 03:52:[address] [facility] CT THORAX W/O CONTRAST MATERIAL CT THORAX WITHOUT CONTRAST 7125 0 Routine 10/24/2019 6:10 AM EDT 10/24/2019 10:10:00 AM [facility] PROCALCITONIN (PCT) PROCALCITONIN Routine 10/24/2019 3:39 AM EDT 10/24/2019 07:39:00 AM [facility] BLOOD COUNT COMPLETE AUTO&AUTO DIFRNTL WBC COUNT CBC AND DIFFER ENTIAL Routine 10/24/2019 3:39 AM EDT 10/24/2019 07:39:00 AM [facility] TROPONIN QUANTITATIVE TROPONIN T Timed 10/24/2019 3:39 AM EDT 10/24/2019 07:39:00 AM [facility] THYROID STIMULATING HORMONE TSH TSH Routine 10/24/2019 3:39 AM EDT 10/24/2019 07:39:00 AM [facility] PHOSPHORUS INORGANIC PHOSPHORUS LEVEL Routine 10/24/2019 3:39 AM E DT 10/24/2019 07:39:00 AM [facility] MAGNESIUM MAGNESIUM LEVEL Routine 10/24/2019 3:39 AM EDT 10/24/2019 07:39:00 AM [facility] LACTATE LACTIC ACID LEVEL, PLASMA STAT 10/24/2019 3:39 AM EDT 10/24/2019 07:39:00 AM [facility] CALCIUM IONIZED CALCIUM, IONIZED Routine 10/24/2019 3:39 AM EDT 10/24/2019 07:39:00 AM [facility] BASIC METABOLIC PANEL CALCIUM TOTAL BASIC METABOLIC PANEL Routi ne 10/24/2019 3:39 AM EDT 10/24/2019 07:39:00 AM EDT [facility] GLUCOSE QUANTITATIVE BLOOD XCPT REAGENT STRIP POCT GLUCOSE, DOC KED Routine 10/23/2019 11:24 PM EDT 10/24/2019 03:24:00 AM [facility] BLOOD GASES ANY COMBINATION PH PCO2 PO2 CO2 HCO3 BLOOD GAS, ART ERIAL STAT 10/23/2019 10:19 PM EDT 10/24/2019 02:19:00 AM [facility] FIBRIN DGRADJ PRODUCTS D-DIMER QUAL/SEMIQUAN D-DIMER, QUANTITAT ADALGISA Routine 10/23/2019 8:14 PM EDT 10/24/2019 12:14:00 AM [facility] EKG ED PHYSICIAN INTERPRETATION EKG ED PHYSICIAN INTERPRETATION Routine 10/23/2019 8:12 PM EDT 10/24/2019 12:12:38 AM [facility] XR CHEST FRONTAL ONLY 14791 XR CHEST FRONTAL ONLY 39190 STAT 10/23/2019 8:11 PM EDT 10/24/2019 12:11:11 AM EDT [facility] COVID-19 PCR [facility] COVID-19 PCR STAT 10/23/2019 8:11 PM EDT 10/24/2019 [facility]:11[facility] NATRIURETIC PEPTIDE PROBNP STAT 10/23/2019 8:11 PM EDT 10/24/2019 12:11:[facility] CULTURE BACTERIAL BLOOD AEROBIC W/ID ISOLATES BLOOD CULTURE S TAT 10/23/2019 8:11 PM EDT 10/24/2019 12:11:00 AM EDT [facility] CULTURE BACTERIAL BLOOD AEROBIC W/ID ISOLATES BLOOD CULTURE S TAT 10/23/2019 8:11 PM EDT 10/24/2019 12:11:00 AM EDT [facility] BLOOD COUNT COMPLETE AUTO&AUTO DIFRNTL WBC COUNT CBC AND DIFFER ENTIAL STAT 10/23/2019 8:11 PM EDT 10/24/2019 12:11:00 AM [facility] BASIC METABOLIC PANEL CALCIUM TOTAL BASIC METABOLIC PANEL STAT 10/23/2019 8:11 PM EDT 10/24/2019 12:11:00 AM EDT [facility] BASIC METABOLIC PANEL CALCIUM IONIZED POCT ISTAT CHEM8 Routine 10/23/2019 8:08 PM EDT 10/24/2019 12:08:00 AM EDT [facility] BLOOD GASES ANY COMBINATION PH PCO2 PO2 CO2 HCO3 POCT ISTAT ABG /LAC Routine 10/23/2019 8:05 PM EDT 10/24/2019 12:05:00 AM [facility] TROPONIN QUANTITATIVE POCT ISTAT TROPONIN Routine 10/23/2019 8:03 PM EDT 10/24/2019 12:03:00 AM [facility] EKG 12-LEAD - CMAXX REPORT EKG 12-LEAD - CMAXX REPORT 10/23/2019 8:00 PM EDT 10/24/2019 12:00:41 AM EDT [facility] EKG 12-LEAD - CMAXX REPORT EKG 12-LEAD - CMAXX REPORT 10/23/2019 8:00 PM EDT 10/24/2019 12:00:41 AM EDT [facility] EKG 12-LEAD EKG 12-LEAD STAT 10/23/2019 8:00 PM EDT 10/24/2019 [facility] 12-LEAD - CMAXX REPORT EKG 12-LEAD - CMAXX REPORT 10/23/2019 8:00 PM EDT 10/24/2019 12:00:00 AM EDT U [facility] XR CHEST FRONTAL ONLY [id number] XR CHEST FRONTAL ONLY 39127 STAT 06/03/2019 4:48 PM EST 06/03/2019 09:48:27 PM EST [facility] OTHER BEDSIDE PROCEDURE OTHER BEDSIDE PROCEDURE Routine 06/03/2019 3:19 PM EST Chronic diastolic (congestive) heart failure 06/03/2019 08:1 9:42 PM EST Chronic diastolic (congestive) heart failure [facility] Chronic diastolic (congestive) heart rahul lure CENTRAL LINE CENTRAL LINE Routine 06/03/2019 3:17 PM EST Chronic diastolic (congestive) heart failure Ground glass opacity present on imaging of lung 06/03/2019 0 8:17:37 PM EST Ground glass opacity present on imaging of lungChronic diastolic (congestive) [facility] failure [facility] Ground glass opacity present on imaging of lung Chronic diastolic (congestive) heart rahul lure CARDIAC CATH PROCEDURE LOG CARDIAC CATH PROCEDURE LOG 06/03/2019 1:58 PM EST 06/03/2019 06:58:56 PM EST [facility] AUTO GARAGE ATTENDANT PROCEDURE AUTO GARAGE ATTENDANT PROCEDURE Routine 06/03/2019 1:[address] 06/03/2019 06:57:23 PM [facility] BLOOD COUNT HEMOGLOBIN HEMOGLOBIN STAT 06/03/2019 1:46 PM EST 06/03/2019 06:46:[address] [facility] [address] THORAX W/O CONTRAST MATERIAL CT THORAX WITHOUT CONTRAST 7125 0 STAT 05/15/2019 1:58 PM EST Acute respiratory failure with hypoxia Ground glass opacity present on imaging of lung 05/15/2019 0 6:58:15 PM EST Ground glass opacity present on imaging of lungAcute respiratory failure with hypoxia [facility] Ground glass opacity present on imaging of lung Acute respiratory failure with hypoxia XR CHEST FRONTAL ONLY 11741 XR CHEST FRONTAL ONLY 25627 STAT 04/09/2019 10:00 AM EST 04/09/2019 03:00:00 PM EST [facility] BLOOD COUNT COMPLETE AUTO&AUTO DIFRNTL WBC COUNT CBC AND DIFFER ENTIAL Routine 04/09/2019 4:31 AM EST 04/09/2019 09:31:00 AM [facility] PHOSPHORUS INORGANIC PHOSPHORUS LEVEL Routine 04/09/2019 4:[address] 04/09/2019 09:31:00 AM [facility] MAGNESIUM MAGNESIUM LEVEL Routine 04/09/2019 4:31 AM EST 04/09/2019 09:31:00 AM [facility] BASIC METABOLIC PANEL CALCIUM TOTAL BASIC METABOLIC PANEL Routi ne 04/09/2019 4:31 AM EST 04/09/2019 09:31:00 AM [facility] BLOOD COUNT COMPLETE AUTO&AUTO DIFRNTL WBC COUNT CBC AND DIFFER ENTIAL Routine 04/08/2019 5:19 AM EST 04/08/2019 10:19:00 AM [facility] PHOSPHORUS INORGANIC PHOSPHORUS LEVEL Routine 04/08/2019 5:[address] 04/08/2019 10:19:00 AM [facility] MAGNESIUM MAGNESIUM LEVEL Routine 04/08/2019 5:19 AM EST 04/08/2019 10:19:00 AM [facility] BASIC METABOLIC PANEL CALCIUM TOTAL BASIC METABOLIC PANEL Routi ne 04/08/2019 5:19 AM EST 04/08/2019 10:19:00 AM [facility] INPATIENT HOME O2 EVALUATION FOR DISCHARGE INPATIENT HOME O2 EVALUATION FOR DISCHARGE Routine 04/07/2019 3:20 PM EST 04/07/2019 08:20 :00 PM [facility] ECHO TTHRC R-T 2D W/WOM-MODE COMPL SPEC&COLR DOP ECHOCARDIO GRAM 2D COMPLETE Routine 04/07/2019 11:14 AM EST 04/07/2019 04:14:24 PM [facility] PROTHROMBIN TIME PROTIME INR Routine 04/07/2019 6:28 AM EST 04/07/2019 11:28:00 AM [facility] BLOOD COUNT COMPLETE AUTO&AUTO DIFRNTL WBC COUNT CBC AND DIFFER ENTIAL Routine 04/07/2019 6:28 AM EST 04/07/2019 11:28:00 AM [facility] PHOSPHORUS INORGANIC PHOSPHORUS LEVEL Routine 04/07/2019 6:[address] 04/07/2019 11:28:00 AM [facility] MAGNESIUM MAGNESIUM LEVEL Routine 04/07/2019 6:28 AM EST 04/07/2019 11:28:00 AM [facility] BASIC METABOLIC PANEL CALCIUM TOTAL BASIC METABOLIC PANEL Routi ne 04/07/2019 6:28 AM EST 04/07/2019 11:28:00 AM [facility] VIRUS TISS CUL INOCULATION CYTOPATHIC EFFECT GENERAL VIRAL CULT URE Routine 04/06/2019 7:02 PM EST 04/07/2019 12:02:00 AM [facility] CUL BACT XCPT URINE BLOOD/STOOL AEROBIC ISOL LEGIONEL LA CULTURE RESPIRATORY SPECIMEN Routine 04/06/2019 7:02 PM EST 04/07/2019 12:02 :00 AM [facility] CONCENTRATION INFECTIOUS AGENTS AFB CULTURE Routine 04/06/2019 7 :02 PM EST 04/07/2019 12:02:00 AM [facility] IAADI PNEUMOCUSTIS CARINII PNEUMOCYSTIS SMEAR BY DFA Routine 04/06/2019 7:02 PM EST 04/07/2019 12:02:00 AM [facility] CUL BACT XCPT URINE BLOOD/STOOL AEROBIC ISOL SPUTUM CULTURE Ro utine 04/06/2019 7:02 PM EST 04/07/2019 12:02:00 AM [facility] IADNA MYCOPLSM PNEUMONIAE AMPLIFIED PROBE TQ MYCOPLASMA PNEUMON IAE PCR Routine 04/06/2019 7:02 PM EST 04/07/2019 12:02:00 AM [facility] CULTURE FNGI MOLD/YEAST PRSMPTV OTH XCPT BLOOD FUNGUS CULTURE Routine 04/06/2019 7:02 PM EST 04/07/2019 12:02:00 AM [facility] CUL BACT XCPT URINE BLOOD/STOOL AEROBIC ISOL HC BAL CULTURE Ro utine 04/06/2019 7:00 PM EST 04/07/2019 12:00:00 AM [facility] VIRUS TISS CUL INOCULATION CYTOPATHIC EFFECT GENERAL VIRAL CULT URE Routine 04/06/2019 7:00 PM EST 04/07/2019 12:00:00 AM [facility] CUL BACT XCPT URINE BLOOD/STOOL AEROBIC ISOL LEGIONEL LA CULTURE RESPIRATORY SPECIMEN Routine 04/06/2019 7:00 PM EST 04/07/2019 12:00 :00 AM [facility] CONCEN[employer] AFB CULTURE Routine 04/06/2019 7 :00 PM EST 04/07/2019 12:00:00 AM [facility] IAADI PNEUMOCUSTIS CARINII PNEUMOCYSTIS SMEAR BY DFA Routine 04/06/2019 7:00 PM EST 04/07/2019 12:00:00 AM [facility] IADNA MYCOPLSM PNEUMONIAE AMPLIFIED PROBE TQ MYCOPLASMA PNEUMON IAE PCR Routine 04/06/2019 7:00 PM EST 04/07/2019 12:00:00 AM [facility] CULTURE FNGI MOLD/YEAST PRSMPTV OTH XCPT BLOOD FUNGUS CULTURE Routine 04/06/2019 7:00 PM EST 04/07/2019 12:00:00 AM [facility] GLUCOSE QUANTITATIVE BLOOD XCPT REAGENT STRIP POCT GLUCOSE, DOC KED Routine 04/06/2019 6:45 PM EST 04/06/2019 11:45:00 PM [facility] BRONCHOSCOPY, RIGID/FLEX, W/WO FLUORO GUID W/WO CELL WASHING (SEP PROC) BRONCHOSCOPY, RIGID/FLEX, W/WO FLUORO GUID W/WO CELL WASHING (SEP PROC) 04/06/2019 4:45 PM EST hypoxic respiratory failure 04/06/2019 09:45:00 PM EST - 04/06/2019 10:10:00 PM [facility] BLOOD GASES ANY COMBINATION PH PCO2 PO2 CO2 HCO3 BLOOD GAS, ART ERIAL Routine 04/06/2019 3:47 PM EST 04/06/2019 08:47:[address] [facility] [address] ANGIOGRAPHY CHEST W/CONTRAST/[place] [address] STAT 04/06/2019 1:35 PM EST 04/06/2019 06:35:00 PM [facility] CUL BACT XCPT URINE BLOOD/STOOL AEROBIC ISOL LEGIONEL LA CULTURE RESPIRATORY SPECIMEN Routine 04/06/2019 12:20 PM EST 04/06/2019 05:20 :00 PM [facility] CUL BACT XCPT URINE BLOOD/STOOL AEROBIC ISOL SPUTUM CULTURE ST AT 04/06/2019 12:20 PM EST 04/06/2019 05:20:00 PM [facility] IAAD EIA MULT STEP METHOD NOS EACH ORGANISM LEGIONELLA ANTIGEN, URINE Routine 04/06/2019 12:20 PM EST 04/06/2019 05:20:00 PM [facility] RESPIRATORY PANEL RESPIRATORY PANEL Routine 04/06/2019 12:07 PM EST 04/06/2019 05:07:00 PM [facility] CUL PRSMPTV PTHGNC ORGANISM SCRN W/COLONY ESTIMJ MRSA CULTURE Routine 04/06/2019 12:07 PM EST 04/06/2019 05:07:00 PM [facility] SEPSIS WORKUP SEPSIS WORKUP Routine 04/06/2019 12:00 PM EST Sepsis due to Salmonella species with critical illness polyneuropathy, unspecified whether septic shock present 04/06/2019 05:00:29 PM EST Sepsis due to Salmonella species with critical illness polyneuropathy, unspecified whether septic shock present [facility] Sepsis due to Salmonella species with cr itical illness polyneuropathy, unspecified whether septic shock present IAAD EIA HIV-1 AG W/HIV-1&HIV-2 ANTBDY SINGLE HIV AG AB COMBO S CREEN Routine 04/06/2019 11:46 AM EST 04/06/2019 04:46:00 PM [facility] NATRIURETIC PEPTIDE PROBNP Routine 04/06/2019 11:46 AM EST 04/06/2019 04:46:00 PM [facility] TROPONIN QUANTITATIVE TROPONIN T Routine 04/06/2019 11:46 AM EST 04/06/2019 04:46:00 PM [facility] LACTATE LACTIC ACID LEVEL, PLASMA Routine 04/06/2019 11:46 AM EST 04/06/2019 04:46:00 PM [facility] EKG 12-LEAD - CMAXX REPORT EKG 12-LEAD - CMAXX REPORT 04/06/2019 11:28 AM EST 04/06/2019 04:28:35 PM [facility] EKG 12-LEAD - CMAXX REPORT EKG 12-LEAD - CMAXX REPORT 04/06/2019 11:28 AM EST 04/06/2019 04:28:35 PM [facility] EKG 12-LEAD EKG 12-LEAD Routine 04/06/2019 11:28 AM EST 04/06/2019 04:28:35 PM [facility] CULTURE BACTERIAL BLOOD AEROBIC W/ID ISOLATES BLOOD CULTURE S TAT 04/06/2019 10:41 AM EST 04/06/2019 03:41:00 PM [facility] CULTURE BACTERIAL BLOOD AEROBIC W/ID ISOLATES BLOOD CULTURE S TAT 04/06/2019 10:37 AM EST 04/06/2019 03:37:00 PM [facility] GLUCOSE QUANTITATIVE BLOOD XCPT REAGENT STRIP POCT GLUCOSE, DOC KED Routine 04/06/2019 9:39 AM EST 04/06/2019 02:39:00 PM [facility] BLOOD COUNT COMPLETE AUTO&AUTO DIFRNTL WBC COUNT CBC AND DIFFER ENTIAL Routine 04/06/2019 9:17 AM EST 04/06/2019 02:17:00 PM [facility] PHOSPHORUS INORGANIC PHOSPHORUS LEVEL Routine 04/06/2019 9:[address] 04/06/2019 02:17:00 PM [facility] MAGNESIUM MAGNESIUM LEVEL Routine 04/06/2019 9:17 AM EST 04/06/2019 02:17:00 PM [facility] COMPREHENSIVE METABOLIC PANEL COMPREHENSIVE METABOLIC PANEL Rou blu 04/06/2019 9:17 AM EST 04/06/2019 02:17:00 PM [facility] XR CHEST FRONTAL ONLY 10543 XR CHEST FRONTAL ONLY 11093 Routine 04/06/2019 9:03 AM EST 04/06/2019 02:03:19 PM [facility] BRONCHOSCOPY REPORT BRONCHOSCOPY REPORT 04/06/2019 12:00 AM EST 04/06/2019 05:00:00 AM [facility] Results ID Date Data Source [id number] 04/12/2020 02:57:37 PM [facility] Hospital Name Value Range Interpretation Code Description Data Mellissa rce(s) Supporting Document(s) Progress Note [facility] INOZVu5cGyHLHzPo31/BMSnbLCXnj4EhNIamAPa3TWwbDEVlG3MkIGN2eX7bUUP2ZUyGFsJnNbTqUTF8 lbm [file] Yw7KPpS5BHY4fFMvEo2YZWHzWYILGqNxRC7FALt= ID Date Data Source [id number] 02/28/2020 09:24:31 PM [facility] Name Value Range Interpretation Code Description Data Mellissa rce(s) Supporting Document(s) Progress Note [facility] YCIGRw8xZiPAEySn79/CGKobYDOnp3LuWTnvTMr4SMihZPJzO8NbOWS1aC4lAPP4CKrWXjWzGiMbCIHc lbm [file] QBVPWEjUZ9otXYMPc2PBjKoYVFP8PXhR7yMQKSpzTw ZVCy4XleuMuTPEKR0IlUf5XbhYKHtapgjhatffOGRNGyj1GoDKV7iyjVuuEyqkJ/MOOFDTWO9hlGCip3 NsI7aCgAk1W4amkFfnFwUqMBaTlzjsVsfiCUCpBOSOQrUgEHuuZeVY6iDs0AzoliIxgiTEnaMFNKDrF1 tHdKQ8LtizVyy1GRTIHnfkRpNbOYB7mRFfbFzEsvEg 8ND+4q1CmQNmoH1+WnKtigglVlWX3OcscQr1cbrHcG8ZFWO3sRsrFZbWHYMhkhRrpC9aWDfhD4YRLhPC Wx5IEfeRW+mI/aWU8zm3Nh9siyQaHgoYvnEG2dlDLJ9MHC7XjyoZM6hXzAOSnW8jmAWH9048vCksqagq Op1KiVl9+ax0/U8fr+rGFoaLyE8JQcbVXGK1N9izgy 3tP78bqZw+NuyeVjhqhoRdMWh/pwR9uMIz4ybJPIXrljNUrYr97AfcLgG9fLribX/mfMP3wS2A3n3R3I AVQk3+Tjk6DLtcBeiE8J8JH7fil9uOsKnx5N0Qs5IKEszCGfOTgYYiCxPlKeXHKBcvRpP8Cu7DOjo/KO Airline Station Agent/M6Q473AzS162uQ3Taqn/4V258JLZ9ixqSC6JjP [file] fcHTMCJuW9LVRsJJzqJGFLQc2T ID Date Data Source [id number] 02/23/2020 07:22:[address] 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 [file] AgICAgICAgICAgICAgICAgICAgICAgICAgICAgICAgICAgICAgICAgICAgICAgICAgICAgICAgICAgIC AgICAgICAgICAgICAgICAgICAgICAgICAgICAgICAgICAgICANCiAgICAgICAgICAgICAgICAgICAgIC AgICAgICAgICAgICAgICAgICAgICAgICAgICAgICAg ICAgICAgICAgICAgICAgICAgICAgICAgICAgICAgICAgICAgICAgICAgICAgICANCiAgICAgICAgICAg ICAgICAgICAgICAgICAgICAgICAgICAgICAgICAgICAgICAgICAgICAgICAgICAgICAgICAgICAgICAg ICAgICAgICAgICAgICAgICAgICAgICAgICAgICANCi AgICAgICAgICAgICAgICAgICAgICAgICAgICAgICAgICAgICAgICAgICAgICAgICAgICAgICAgICAgIC AgICAgICAgICAgICAgICAgICAgICAgICAgICAgICAgICAgICAgICANCiAgICAgICAgICAgICAgICAgIC AgICAgICAgICAgICAgICAgICAgICAgICAgICAgICAg ICAgICAgICAgICAgICAgICAgICAgICAgICAgICAgICAgICAgICAgICAgICAgICAgICANCiAgICAgICAg ICAgICAgICAgICAgICAgICAgICAgICAgICAgICAgICAgICAgICAgICAgICAgICAgICAgICAgICAgICAg ICAgICAgICAgICAgICAgICAgICAgICAgICAgICAgIC ANCiAgICAgICAgICAgICAgICAgICAgICAgICAgICAgICAgICAgICAgICAgICAgICAgICAgICAgICAgIC AgICAgICAgICAgICAgICAgICAgICAgICAgICAgICAgICAgICAgICAgICANCiAgICAgICAgICAgICAgIC AgICAgICAgICAgICAgICAgICAgICAgICAgICAgICAg ICAgICAgICAgICAgICAgICAgICAgICAgICAgICAgICAgICAgICAgICAgICAgICAgICAgICANCiAgICAg ICAgICAgICAgICAgICAgICAgICAgICAgICAgICAgICAgICAgICAgICAgICAgICAgICAgICAgICAgICAg ICAgICAgICAgICAgICAgICAgICAgICAgICAgICAgIC AgICANCiAgICAgICAgICAgICAgICAgICAgICAgICAgICAgICAgICAgICAgICAgICAgICAgICAgICAgIC AgICAgICAgICAgICAgICAgICAgICAgICAgICAgICAgICAgICAgICAgICAgICANCjw/eEIjD4usvHFtwk Y6W2ueFd2UPs1VPO4uc7TmESXlLIkiuoCxOjmROoPr INFiSmmUEzj3GWwmBN4CoZGaF4WiK2FaFXfgEN2BIIPtMRMelWCvMBAtOHDwKhT9LMYzCBqhAL1FdYHe AKmxKPDkWGTmCjIjATHfEJ8XENIyG935rkEwCs6IVs0HAkYeTG2zyr2WFbTkZXZvCqpFMtm8TWaqRF8Q wGKdcQPbKrGrSNNCGcLdW7jbw8QgJvWyNMRZVFlqFT 6Tl1BjhZDvZHo+Ym4NYH8qp7SyRRspXbMrCD6gxf9CCUoNGmDpO2DoeRnkBUFft3amOEAkXC3bgQWsOX N0WTq8ahakEAErYOisJSHHYFVweTDlLO4eSl3gIHOnTHOyDaGmXGKFMM0GTXNiOXSkbGLgSFJqTSOQHK 1UGFjiDKN2AEZmjyMqsHZnSZlpLP7UVQNiuyCtRyXn MCBSDQo+Fh7NIV1sx1SnPLrgYmHkET7aun6VRCaDNmUlR8M4vBLrF2I6MMabRr7IUNXzJZXcPWcxXNPZ GYosRS6YWO5guiE0ZB1YkGBySPIyQGNrwAAuEQs8T28ljUMgKLteSO3KUMT+Isiah+Hw2UPIPrCZYiOEYj EtJhOJXVTqTaI8GkB6KDs7AgO6OzGB10kXjihoMhKV mlQZ1PLT0tDVQaWZCZBM3HsUPztM8jsgKaRFVjJXOUWtVtZ60ijHClRNZkDBKvHGZaYp2CPJRdQ2Xvrr AokElhxwEjVPEiHUTQVJ8MFOczjoUkvKSmsRsbPZ02cCmrQO1HPd5ADeBbMS2bzh7BeBMpTy4UBFFaNB 8XSTKcGRCvEWSbOPS5MAMiSrAcLQalWNCnEQAfHKN9 ECKpKQNsNI3BTqVcXLVhAVs4ZMhxVSFhNXIebo6JUZFuJBDqHYCxJQNcXYHlMSYkYVlsFMAzYJJrZZR0 COSnTVGcPS2EOuHoILTtGFP8TbuxLNJtWOPedq7VBFVgQGUcOab1CcMjMEAzMUYjKJhhCTWzLKL3VkQs AZAgPXUnKJ0MXbLzBHGxLKE4VOKgHQMnVZCceh1ZNF ZhYRGnGAV7HPJlAWBzMHPtUIbbALMlUOI1RvnlORVdHUYpYT1CXcGyKGMwXII0YOMgPMOkDGEqcl2BYQ DwVKMdQublFJFmZTDkIKPuPZenURVfRDD3XABeHJZqZCLkJV8VPnSaCHWnCYxwZAYrDHSlLAQmvh2TGN AeJNBePGT4KzOhWKMxDJVhNEtkVMAuQHE5NMwjHIWr ESYzZI8SKzFcVOEuBZayRQBeNFMrUQPzyc9ZSJGvABTiBRNxLKYoLJTdLCChYIuqZFGkXVY9CLQ2PUIj UCOjPM5HErAzIQHkMTs0RmrrPCQfOBWjiz1FYGBzRQKnVABaLqRcBFMnZAXpSQimUQPcYWCsXbdcGJCn QZPcQW1NQtNnZEPsKmX6BrFuDODyEQGajp0JyKDzqE cyla8IAGvZHa6YhAogTXD2LElmYu3phFAsIsCpONXDJu1EvjDiWQVkCVPHISwlKVKyGWJiOaYnAWPvQA G9NpwnHMHbBhQzIyBhJNFeLUVyMkN4KpL4LAFpOONcSKB5OpU1MGZiCWDfUXLiYAWtOeYmZjU7DHb+IF 0gDQo+Jb8Yr6VjqoM2iwZnXDjsACt7HW9JZWEGX9EIEi== ID Date Data Source [id number] 02/17/2020 02:00:00 PM EST [facility] Name Value Range Interpretation Code Description Data Mellissa rce(s) Supporting Document(s) SARS coronavirus 2 RNA [facility] This lab was ordered by [facility] and reported by [facility]. ID Date Data Source [id number] 12/29/2019 05:30:11 PM EDT [facility] Name Value Range Interpretation Code Description Data Mellissa rce(s) Supporting Document(s) Progress Note [facility] FHNVDk9jYpOPBuEw21/ECXesCMCjp0TkGAsnEGw8OYcaSPCgK1XzVST5yF3uNGT1AMjCFiQvDoSbSSUo lbm VhMcqONeJjRVFsLgeBGiInURhfFsparNYqAC8VwYU0HZIqQ67tEUEsUQPuP7ZqLYPdTdC+Lg0WEVDigW KlWP9VJcpH1M8vcuh2Qk8/HK4FpYKDKBHIk14OPbvsAalO1VahxVQZpVbXGr+tYQQpcE6h+tvPSrtrec nqH7wvIWhYdCzl4BJA0WTiVCBJIO/3zCSF28ZvS/t3 +hOBYMJeaZ49e5lGh16khghksDGr6JkUSUWC6j+ufb/Ud24o0TdwhEf4f+nOIuELoqiTB2KwI236XuqR g3NS5n4WgAJzl4i+zmi9icj/9gPr8/Pnpv+R9b5uI8R7xQ9Hf822TKshLQLWgM1A2p2xZiDzQt0bEd4Q VQft+4kAW2KMc3Wc6Aczw1nE7ZcVNT+nlx2RuD5onX Nd+Clsp+fEswlzNzwOCunb9GBdDQGFh0i+NsdC4Pl2jKoi4j1pwJL9NzjlR4mU9HlOqDE/0ZfSkm/MEO ezP+QSUQSi3HbCR7JT7a7gMzwsEr/LpxyBbtxhfBP5yict3IZfoiLCMjfk9vpqN0+VcPbQZLwgihaTeX FcNd7tKhn9DhOv0YlaUIlsWZsbdDKJo5AQ60h9WNko TQceN7K1fLPvuREeg+t2936n8C0hQr+9lxxjn+vV7DfBb02rbGZmJwsf9poIhmH06bcmvXt0jEYVbcVj YJSV8P1vd7ddfu54+AhliozIeGSgQDQfD7eTNWi9eQDVPzUCMROvlhSh+dVIUfTlwHNicW3/ZRgFaWdO yBt7737fN37sT+2qj2m8Q0T08rsvv4KMDZ6zjT19Ms [file] AgICAgICAgICAgICAgICAgICAgICAgICAgICAgICAg ICAgICAgICAgICAgICAgICAgICAgICAgICAgICANCiAgICAgICAgICAgICAgICAgICAgICAgICAgICAg ICAgICAgICAgICAgICAgICAgICAgICAgICAgICAgICAgICAgICAgICAgICAgICAgICAgICAgICAgICAg ICAgICAgICAgICANCiAgICAgICAgICAgICAgICAgIC AgICAgICAgICAgICAgICAgICAgICAgICAgICAgICAgICAgICAgICAgICAgICAgICAgICAgICAgICAgIC AgICAgICAgICAgICAgICAgICAgICANCiAgICAgICAgICAgICAgICAgICAgICAgICAgICAgICAgICAgIC AgICAgICAgICAgICAgICAgICAgICAgICAgICAgICAg ICAgICAgICAgICAgICAgICAgICAgICAgICAgICAgICANCiAgICAgICAgICAgICAgICAgICAgICAgICAg ICAgICAgICAgICAgICAgICAgICAgICAgICAgICAgICAgICAgICAgICAgICAgICAgICAgICAgICAgICAg ICAgICAgICAgICAgICANCiAgICAgICAgICAgICAgIC AgICAgICAgICAgICAgICAgICAgICAgICAgICAgICAgICAgICAgICAgICAgICAgICAgICAgICAgICAgIC AgICAgICAgICAgICAgICAgICAgICAgICANCiAgICAgICAgICAgICAgICAgICAgICAgICAgICAgICAgIC AgICAgICAgICAgICAgICAgICAgICAgICAgICAgICAg ICAgICAgICAgICAgICAgICAgICAgICAgICAgICAgICAgICANCiAgICAgICAgICAgICAgICAgICAgICAg ICAgICAgICAgICAgICAgICAgICAgICAgICAgICAgICAgICAgICAgICAgICAgICAgICAgICAgICAgICAg ICAgICAgICAgICAgICAgICANCiAgICAgICAgICAgIC AgICAgICAgICAgICAgICAgICAgICAgICAgICAgICAgICAgICAgICAgICAgICAgICAgICAgICAgICAgIC AgICAgICAgICAgICAgICAgICAgICAgICAgICANCiAgICAgICAgICAgICAgICAgICAgICAgICAgICAgIC AgICAgICAgICAgICAgICAgICAgICAgICAgICAgICAg ICAgICAgICAgICAgICAgICAgICAgICAgICAgICAgICAgICAgICANCjw/tBXyC1jzhBGdlzR5C5apSf5C Ag9PXC7tq4MjWWJrNYadmcTrGzsCTmHiMFPdBdkCOuv3JApaWQ1DgPLvD8LuE8RqUZmtLR8VFEUtYKGv lAQhHITsIBIgDiU7LUZdTIvxHA9VlITcVNseYOOhZZ HbWjNaBNOfEFHtDKCkPJWgVHUDHBYfOAMkSzFbSEKkWHJhFX8ZNRTqI412ewLfZn2XIt2YYdPuCG6hug 3BSnDyBLGzLuhWQoa7QKtnFH9FeITgoXXsHeQoLIAGGnWeP8xiy4VqKvLyQIZEPDasMM6Hi7VzqSXiUK o+Yg0UNH1gn7ShLNoeAtVkQU8wws0NCTbERgLdY1Pj jLidHZZqg4cwICVxWF4djRXtYRY2CW9ntpv1bcHYwWZcN8xcBPRYMFRNuZSrHRYfFE5mWL8gSIQpXOHf KtFxKSXRXW0POOFgRQQcaSTgHADnOURELC9IJRlsNDP2GJFewpShxKZwGQitHW7MVSVmuiQsXrZxIAJS DQo+Hh0XGY8mz4IjSTcwTEPmRC2fxj2YGQaTFeDdW4 X4uQZsP3K2UDjwFy3VVVXfXLMaLmVxCOGXZOzwEN2CIA6npfT1XV3YsXSdQHEiKAKqqSRaKUd8L83olP FiWYenHA2AFPY+Isiah+Rz0ACRFjONRnZWUmAbPlWYCKEkTwI5OqB3LIj9JrV8BbFA35kHjcawYtPKszWF 3VHD0cCSBqENWZEV0JtQRjhG5xlqRmTiSnTMUUNcLo P49icNKlQPJyQRSuVHJhUw9TXZCcQ1GujhQxgSsgdeYvUEKfNIOEQH9JVYndbmIbpDAswTxpXR85pVio VH5CDe8AXkXvXJ8hqa9TrUIjJt3EXSDvJY6CXTEcUCTrNDUxZSU2VWCvKsNcFCluIQBpOZEcXPA5BQAw ENGfPU6IMnTuCGIkIyF9BuqaWNCxQAMiwi8JWMYeRF DiHHE4JwFrBOSlMZQlANxlYTQwWIMkLUK6QRSxIUBsIK8HTkZvWNPdGUT6YTSbIVBjGSHzpq9DFDNmUZ BaHATtAWHzWIRzNBThNHheJJFoWAP6PNF9HALmRCByYR4SBzVgRODjNRqfSOHuQUZnECFdxp0TNGDjAY LmBHiiXSSrJWBpHPDwWJjvKYLyITTiLNT7KCAtREOp DJ8LLyKpJPUvSZS3KPSyWWTbUBYast5EQFFqTUBeLETgFEFsEOLhQWZfNSujVBSkVWH9GYJ8PNUoEIQj NG3WAdXrYRXcSAqdYdEiEEGiUPDpiw6TKTIbQHKrPAG9PTPpNEHhOAFeLDjhRVAjYTVsHKL1SBEgXCPy FL4TVsWcKIUvRxT0EVltCCOmGBLxzi6FQRQuKVRpOF XgGYRqECZmAKYuNKpaNNYhJSTuCgf9ABQrBWTfPH6GJaBrUNVbIsA4JSZdYFLiGYAexh3RQLQvEQFkZl d7TUWxXIZtQLIgSVnfMIPkYAWgXNX8HGDkRGRmSY8ZIaKtAHTsKcJ0RrAzGQFpRYFbwg7UZNHvLXBsPE i4EPNhVEJbORJtCUhdNEZvSHN8LPCfCFSoVKBjEH3R ExLeBTVuSmUuDNAdSLSbIUKmnw4OSIKyAVUjYPR9DeUwVPPbZBCyVKlxDSUhNPJ9RXWaXKSpFGIdOJ8Q WqOeJVGrMtX5EtdkMPWnSOHoxe6LKVRkPREoYmtgRwOkPLPkLVKqAJikHXIeVOM7MyQvZZCiJBFmAB7T JaMjYMJuTwf3LJQlRQNyHHFxot8AUSVaUNCqMTx1NY TkPQIxDWSxRQksQEKtCQT0AXC7YAAcJPWdSD8GYmLlTFpqUMFSJyh6YPxlA8k9MROzLD7ID1Iye2NbLv ItCLTMMJqgCE8kxeMkFHOfPp4FP5qENvmrGwXyJKP6FrXrJSG4UOU7WxZfZYD1DegkCLAbZQcgBv5pJN LmWWY3XDu0XtCzZUCiALHnFHWyOhNcG6Z2NYElBRAw RbYeKX0YSx1SNqN8VLZ5jWUtXi8DDgruYyPGPhTxMK8OUZx= ID Date Data Source 12/23/2019 01:32:26 PM [facility] Name Value Range Interpretation Code Description Data Mellissa rce(s) Supporting Document(s) Neutrophil cytoplasmic Ab [Presence] in Serum by Immunofluoresce nce Negative [facility] ID Date Data Source 12/23/2019 02:02:33 PM [facility] Name Value Range Interpretation Code Description Data Mellissa rce(s) Supporting Document(s) Nuclear Ab Pattern Homogenous [Titer] in Serum <80 [facility] Nuclear Ab pattern.speckled [Titer] in Serum <80 [facility] Nuclear Ab pattern.rim [Titer] in Serum <80 [facility] Nuclear Ab pattern.nucleolar [Titer] in Serum <80 [facility] ID Date Data Source [id number] 12/23/2019 03:20:42 PM [facility] Value Range Interpretation Code Description Data Mellissa rce(s) Supporting Document(s) Cyclic citrullinated peptide IgA+IgG Ab [Units/volume] in Serum or Plasma by Immunoassay 7 units 0-20 [facility] NegativeNegative and indicates no CCP3an tibodies or levels below the negativecutoff of the assay.(NOTE)These results were obtained with the [employer] CCP3.1 IgG/IgAELISA. Anti-CCP values obtained with different textile machine maintenance mechanic's assaymethods may not be interchangeable. The magnitude of the reported IgGor IgA levels cannot be correlated to an endpoint titer. ID Date Data Source 12/28/2019 01:23:41 PM [facility] Value Range Interpretation Code Description Data Mellissa rce(s) Supporting Document(s) Centromere Ab [Units/volume] in Serum 4 [AU]/mL [address] [place] [address] ID Date Data Source 12/28/2019 01:23:41 PM [facility] Value Range Interpretation Code Description Data Mellissa rce(s) Supporting Document(s) Sjogrens syndrome-A extractable nuclear Ab [Units/volume] in Serum by Immunofluorescence 10 [AU]/mL [address] [place] [address] ID Date Data Source 12/28/2019 01:23:41 PM [facility] Value Range Interpretation Code Description Data Mellissa rce(s) Supporting Document(s) Sjogrens syndrome-B extractable nuclear Ab [Units/volume] in Serum by Immunofluorescence 5 [AU]/mL [address] [place] [address] ID Date Data Source 12/28/2019 01:23:41 PM [facility] Value Range Interpretation Code Description Data Mellissa rce(s) Supporting Document(s) SCL-70 extractable nuclear Ab [Units/volume] in Serum 18 [AU]/mL [address] [place] [address] ID Date Data Source 12/28/2019 01:23:41 PM [facility] Value Range Interpretation Code Description Data Mellissa rce(s) Supporting Document(s) DNA double strand Ab [Units/volume] in Serum by Immunofluore scence 0 [IU]/mL 0-99 [facility] ID Date Data Source [id number] 12/28/2019 01:23:41 PM [facility] Name Value Range Interpretation Code Description Data Mellissa rce(s) Supporting Document(s) Ribonucleoprotein extractable nuclear Ab [Units/volume] in Serum by Immunofluorescence 11 U/ML 0-99 [facility] ID Date Data Source 12/24/2019 01:06:37 PM [facility] Name Value Range Interpretation Code Description Data Mellissa rce(s) Supporting Document(s) Aldolase [Enzymatic activity/volume] in Serum or Plasma 4.8 U/L 3. 3-10.3 [facility] (NOTE)Performed At: RN [facility] [address] [id number] Kumar MD Ph:[id number] ID Date Data Source 12/22/2019 05:13:26 PM [facility] Value Range Interpretation Code Description Data Mellissa rce(s) Supporting Document(s) Leukocytes [#/volume] in Blood by Automated count 9.8 10*3/uL 4-10 [facility] Erythrocytes [#/volume] in Blood by Automated count 4.54 10*6/uL 4.1- 5.3 [facility] Hemoglobin [Mass/volume] in Blood 11.6 g/dL 11.5-15.5 [facility] Hematocrit [Volume Fraction] of Blood by Automated count 35.8 % 3 6-[address] [facility] Erythrocyte mean corpuscular volume [Entitic volume] by Auto mated count 78.8 fL 80-[address] [facility] Erythrocyte mean corpuscular hemoglobin [Entitic mass] by Automated count 25.6 pg 27-[address] [facility] Erythrocyte mean corpuscular hemoglobin concentration [Mass/volume] by Automated count 32.5 g/dL 32.0-36.0 [facility] Erythrocyte distribution width [Ratio] by Automated count 16.7 % 11.5-14.[address] [facility] Platelets [#/volume] in Blood by Automated count 329 10*3/uL 150-400 [facility] Differential cell count method - Blood [facility] Neutrophils/100 leukocytes in Blood by Automated count 60 % [facility] Lymphocytes/100 leukocytes in Blood by Automated count 27 % [facility] Monocytes/100 leukocytes in Blood by Automated count 8 % [facility] Eosinophils/100 leukocytes in Blood by Automated count 4 % [facility] Basophils/100 leukocytes in Blood by Automated count 1 % [facility] Neutrophils [#/volume] in Blood by Automated count 5.93 10*3/uL 1.8-[address] [facility] Lymphocytes [#/volume] in Blood by Automated count 2.70 10*3/uL 1.2-[address] [facility] Monocytes [#/volume] in Blood by Automated count 0.76 10*3/uL 0-0.8 [facility] Eosinophils [#/volume] in Blood by Automated count 0.39 10*3/uL 0-0.5 [facility] Basophils [#/volume] in Blood by Automated count 0.06 10*3/uL 0-0.2 [facility] Nucleated erythrocytes/100 leukocytes [Ratio] in Blood by Automated count 0 /100{WBCs} 0-0 [facility] ID Date Data Source 12/22/2019 06:00:18 PM EDT [facility] Value Range Interpretation Code Description Data Mellissa rce(s) Supporting Document(s) Creatine kinase [Enzymatic activity/volume] in Serum or Plasma 53 U /L 20-180 [facility] ID Date Data Source 12/22/2019 06:20:02 PM [facility] Value Range Interpretation Code Description Data Mellissa rce(s) Supporting Document(s) Erythrocyte sedimentation rate 21 mm/hr <30 [facility] ID Date Data Source 12/22/2019 07:34:10 PM [facility] Value Range Interpretation Code Description Data Mellissa rce(s) Supporting Document(s) Rheumatoid factor [Units/volume] in Serum or Plasma 10 IU/ml <14 [facility] ID Date Data Source [id number] 12/07/2019 04:09:39 PM [facility] Value Range Interpretation Code Description Data Mellissa rce(s) Supporting Document(s) Progress Note [facility] UPRKBc1qDhISUbRu89/VUBubYOOfj6EmLRljCXp1ONrlNPLmC3UvUCO5zU6zXUT2MOnZZiJcOjAgDASe lbm MsSugQSzLcOXBjCvqHVnFpWRosYqbpxHXhYB6RoRT9QTReK95dAOCvGAPxU3FvGPM2Pes+Sx5MOZEyuO ZbMV5ATvlT9T3ze9wOXK3sJD/NpyLvPPJQXKkjqh08rgyK3dMszFBGQMk+QBQksRFJhaIcq7++uJI8x9 RxUgVBSC8zI2bfxX3ZiwrafDQv/m0k8dFBblwJ/bf8 FCi5Vx7Ta/+nRc81oyzN6zl2DLvYN3AQYI+vgtz61t55J9mUA7xqu4ypOEb8jGWgPhlT8jyavm6Gbl7n Ma7kebX6Vldg1KHe+M4Scs5X805F166hgs2FB2fwbQnTvaE21jMlxPlYEYYL08hwFLm9TP3khzGa6BkP VLDud1YtZ932P2TQ7cRv78iJTevoqFoH6M9NmW7gT5 Xcg1tuRiMHlVHYaiyRVIb3HCpSYjHvFN6jkDG/h8XvKpgZrTH6DE1xc8ckD9Y4h5VPU7ZwxBR9KwO72c OeiYGfMc+cCRDh8WSvSXUCDAsfpGdD90N4S0wWV5A3jztxD4E7zCuRx0DM3bfl1XSKcS5Kvsv23ek9NK LKpUtiwoE/sCPf+MRqpw9wnyenfwzAQNto2yQj1EuX t4T7vtFkovWThytik/qyHW4YhHMiIsPpigRxZqueMzTnaSdbXZJ7sD2AR+xsk1VhmhINzliQia5QLnVX +v0fg4hb6uGxZVl3toNPdsBugf7w+oWx6rJpv/qYuESpiV+ekMwqmILXRo0pXkfea8qQ8ZeHcXXLQx2s w5HmdCMYL9CiF+ZNn93fG4oaWNas45PrMPFKFWz/hodgson [file] YnUwNxRsVOcgTUPeQsMdHN1GNj9AYoW8YCU2wRIhMb7GPlLiUVVUWjZpNQ7VTTh= ID Date Data Source [id number] 11/20/2019 03:50:[address] [facility] Name Value Range Interpretation Code Description Data Mellissa rce(s) Supporting Document(s) Progress Note [facility] FFBSQr8kQvVFFkXe33/XUVbpNPQuf0JvCEecZJf0HGzzYYQfJ4RjRWE0tN2yZCL9JEmXMgSmJbMlZFM9 lbm [file] ICAgICAgICAgICAgICAgICAgICAgICAgICAgICAgIC AgICAgICAgICAgICAgICAgICAgICAgICAgICAgICAgICAgICAgICAgICAgICAgICAgICAgICAgICAgIC ANCiAgICAgICAgICAgICAgICAgICAgICAgICAgICAgICAgICAgICAgICAgICAgICAgICAgICAgICAgIC AgICAgICAgICAgICAgICAgICAgICAgICAgICAgICAg ICAgICAgICAgICANCiAgICAgICAgICAgICAgICAgICAgICAgICAgICAgICAgICAgICAgICAgICAgICAg ICAgICAgICAgICAgICAgICAgICAgICAgICAgICAgICAgICAgICAgICAgICAgICAgICAgICANCiAgICAg ICAgICAgICAgICAgICAgICAgICAgICAgICAgICAgIC AgICAgICAgICAgICAgICAgICAgICAgICAgICAgICAgICAgICAgICAgICAgICAgICAgICAgICAgICAgIC AgICANCiAgICAgICAgICAgICAgICAgICAgICAgICAgICAgICAgICAgICAgICAgICAgICAgICAgICAgIC AgICAgICAgICAgICAgICAgICAgICAgICAgICAgICAg ICAgICAgICAgICAgICANCiAgICAgICAgICAgICAgICAgICAgICAgICAgICAgICAgICAgICAgICAgICAg ICAgICAgICAgICAgICAgICAgICAgICAgICAgICAgICAgICAgICAgICAgICAgICAgICAgICAgICANCiAg ICAgICAgICAgICAgICAgICAgICAgICAgICAgICAgIC AgICAgICAgICAgICAgICAgICAgICAgICAgICAgICAgICAgICAgICAgICAgICAgICAgICAgICAgICAgIC AgICAgICANCiAgICAgICAgICAgICAgICAgICAgICAgICAgICAgICAgICAgICAgICAgICAgICAgICAgIC AgICAgICAgICAgICAgICAgICAgICAgICAgICAgICAg ICAgICAgICAgICAgICAgICANCiAgICAgICAgICAgICAgICAgICAgICAgICAgICAgICAgICAgICAgICAg ICAgICAgICAgICAgICAgICAgICAgICAgICAgICAgICAgICAgICAgICAgICAgICAgICAgICAgICAgICAN CiAgICAgICAgICAgICAgICAgICAgICAgICAgICAgIC AgICAgICAgICAgICAgICAgICAgICAgICAgICAgICAgICAgICAgICAgICAgICAgICAgICAgICAgICAgIC AgICAgICAgICANCjw/iGVpN1fqjQGvzlG1T8peLh1BIk3JKQ0se8BtRSHeSNmyplFdWgsSTtUbIYEtTo vVItg4APfyUW7OpFSnB8TfG4HoDErsPZ6MIRKfHYWq pNLgDJBmKEPnOyW3VXBlWFrzUA1YtWHdTKueUPLwFNTpBxJrPDYjNLUcJNVmVRQcBHQKMI9NOfMrD1Dm oM47DBHXVc9+FZjcjcMfUcnYCsX9UGNxn3EuRTw4OH6CYIPeNgski7VqVexmTPUITTqtXJ2HPFX1UFU9 AFLcNv2FCJJiU598oiNmFX9KRb5QFqLcWZ9bpz0NDh oeWFNdTqoYRpi8NMfgGQ6LlZZkQArRmv1rjyPbvdUMn4GroyAqvJUFMZauHADNECnqOpfwFgTxJTQeUZ 6zRQ4bRLOqYLTgMdHgUKSZSL1WBDUsFJIaiMYlGPAzGVOQRU1BMLogLDP6AGVahrAqhTEvDNpuFQ1KEU JlbnQgMjggMCBSDQo+Dn0KEX5sl5PqEJxgZOHlKK3y bx3TPCwZPfZlI1H9eRKyT9R1HWzhYm6KAXEkNHBsRoIyWDSTNWonVJ1XQC9lahZ0MV5AfBMxBVSqHAXh tZHcUAj4T43dgZPpGBsmLK6DTHL+Isiah+Gf3RDKHhPGUbXGQiSbUkMPIVGxGhG3QsG0GAg4ZuZ4NdYZ36 aZoebsJbJEqtTB9NWN5qBLQiJOCBVD5QaVBpaE7ygb AcCKIyMUKVHrXyY05gtRNaTXYcXTR9DRIgLp9IDHQaY8LjlkTbhUlryhWhCLXsSJCRLG6AWBiannNplL OocUsgDW48jSgiGW4DOc4VTeXiZV8uuv0ZcCThDq2YFHYsWT1BGTZaQAGrLWYgJVC3XZJaEwVyMOaqPU OfXZGuQSU3KGYnTJPvVT5IMgOpHBApTte5GiqxKGGq UAMfoh0FBFGmUYXkMBU2EeYfAQWwSDKdIRzrZXKlAUGuNGN9SBAdKZDoZX9VXeMmYNNmKJT7WWemUZMc PRKoqt4OHRPxSOQsCVvwRdLyJYLlNWKxYRtvPVJvTKT4NYjrOFJpWGFkZW2IVlJrIUVyIDjyQaIrHCWz EMOebm0ISNHaQWIoAOYsKuFvNHAmIJJdJMuuVBLwTN YaQFQ0EEAzTLSvEB4TRmXmDVPgIVI3YcusEBRbZGZsqi9QSFNkXPIhTtG5XYMkNPEiQWOdHHigBBMnTJ CrXOH7BCVcUMXvEE9GGdEtAJMnBMSvOCKyYBCjBTFjpa6TMUKqAEJwGnJ6KSZhYVNoEUMbDFifCYGpCX J0VWFcYJIeUGTkPI0SPtHkNUHgKCZ1TOPeKGLjEQDb yu8QMUMnJRJmWNuzEuPxVBCvLKHqZZyjAXGeOGT9KzQkSTIrDJBsWH7UZmTiYGXgBgA4XRcpEFFoNOJg qv9MGXZaXUPsWqo6LvAnZFNySDZbGRlbCTQpADZ4BYK0PWRrSCNzMQ0PVdJfHMUzKtnbZJOcWBRfYBZn re7YPGPxAYFwPGAqIdGeQACkFCNqAOwwWBZfZUJ1Sj C7WFThEBAkNW2KPdRxTFAbLbf9FSHoSBPjOOAnqu7RSDQtSBQaXKaqEuUlUVScYCQjHDkeANAzHJTcCh n4SHGpRTWjXI7NKbBfAPRhLfE8IDQoIKAqPBRtkp0QCBZiDRWnYFS3KbBmVDCyYAPdNPk4fhCweKNpRY g6GG7QX0BfitXzEcPCYx8Wb385TRZhJSGcKc3LA7cr Mw5kSBHmMCXGBo5NDHj3ZkO7YzMyFRpiHVSwRtCdBwgwHqYrQHMqPYPxJsYjV2C+FTqrQsXeOQO4HIBh HyYnOOZrK6XrNQPrG8Z4ORT5PFUyUU2bUPPVQr5+JZqrdLHbbJjgXYZQFoLzBZSeDTtrGHPZWv7T ID Date Data Source [id number] 2019 08:50:[address] [facility] Name Value Range Interpretation Code Description Data Mellissa rce(s) Supporting Document(s) Progress Note [facility] MBMIXt9zExKJTtSg24/TDIylJIEtj9HaLXdgQUc9QItuDCKfQ7OgTPI7eU8hJVE7QJvNAaJjEsMyEAM7 lbm [file] oRRYLL9VOHFjNZjZjMaDcku6J8UfMJ9NWcti// [file] ICAgICAgICAgICAgICAgICAgICAgICAgICAgICAgICAgICAgICAgICAgICAgICAgICAgICAgICAgICAg VWAtUUHpWXKcMUYnIVRxENDrVDYbFZSnEWMpTTExFZGdMI3NAABxUZJhCTSyCFAeFXHrXBGkDOGyKCTw ICAgICAgICAgICAgICAgICAgICAgICAgICAgICAgIC MiOTFjPQFsDBZqXBJvDJVtZPNmNWSgJJTjXCBaWDZlEHOcZKGfVYRxLEImPU4BNKNwTDEjBLAbJRKwQR AgICAgICAgICAgICAgICAgICAgICAgICAgICAgICAgICAgICAgICAgICAgICAgICAgICAgICAgICAgIC NyANXkEAIdZVIiRODmSSAkRJWeGXShFABpXV8RDSRo ICAgICAgICAgICAgICAgICAgICAgICAgICAgICAgICAgICAgICAgICAgICAgICAgICAgICAgICAgICAg CCLcPXYaEEWmSMNmTHFtFJPpTWCwMMJcVVArKXWhTFTtRQDpDS4ULRYwTXYhJEIvSZPpOZSlBEUhCAZd ICAgICAgICAgICAgICAgICAgICAgICAgICAgICAgIC TmWUPvAPQqBPBfVEGaAJKeIKBkOGEdAPRrCIGqHRLpLGXqFZNnIALzFIFjRQAiPQ7OMXCkUHKuYGWxQK AgICAgICAgICAgICAgICAgICAgICAgICAgICAgICAgICAgICAgICAgICAgICAgICAgICAgICAgICAgIC ZsBCYxWBOtWQMqJXEvSXRmXRVgKKHvQPDtGROgHD5L ICAgICAgICAgICAgICAgICAgICAgICAgICAgICAgICAgICAgICAgICAgICAgICAgICAgICAgICAgICAg QHNpGOAtWVHqMZOxHPIxLFHlDGGnDQOvPWGsCKWjVXOxIMVwGHHdAB1KMKVpLBNlSTMrQMPzDVNgOYIj ICAgICAgICAgICAgICAgICAgICAgICAgICAgICAgIC VmOZOlKHQuRAXuSANvHHBeBGZlDQZoWNZxUGHtSQUbQQVyDUDxFPOgKTFpMDUkHWWvVG4NCTHhRVLxJM AgICAgICAgICAgICAgICAgICAgICAgICAgICAgICAgICAgICAgICAgICAgICAgICAgICAgICAgICAgIC AgICAgICAgICAgICAgICAgICAgICAgICAgICAgICAg GC9DUAPdCBOgERUmZBFrYJCwMAArEPNmEZLkCTNaCCVsIIGpEUToIJSiZYEpOVYaTOQxYFPxVCHaZRFb EQGkISGqPFCeURLdSKAdOWEtITTbFGMoDRIpSGTjAZRzKPXdGWQgJQFsKM3PCS79jWJel9G7VZGoHW0q dyc/Ju0AZRodffYunIZyLR6TAaCiKT1akc7OFcFbAC 6xat8MNGrSLsLyU0J5jTOhBDOnCDAEBoEvU45gEUuhNc23JTyhFNTdGcGvCYj2Lb7TRrCjC2whDEAuJu U4PUUaZvU2KCToWxTtQEtaWR7Hp2BojINnJNc+Nb9EQD0tx9LmPIirHRUxQZ1izl1CJXdZVaLlQ5Apaj U2ZMZ9HTAdTb5TQRZpYREpcPTwFLAsHPONSqPwB0Px uE97ISALCl0+DDsqydNvDbjEZhN1MVQdy3PcEBa1MF2GNMZnDYx8wCLkMANtR3Hod8KiFs21WUMnBgvr NIHwecOKXRGrfAVuRW2IHLC6MTbnRY4yREHnXOU2XpGwLEXSKQ4LLCUhIJWrxQClCAUgMOGUVW0QXIxg ZJN3ZHDotaGhrQOwTRnmAN6ECQJgehArJcSfTJILGT o+Or1YDD7pv1NyPKaqGhRzLY2hab2IXGaFHlCrE7Y9tXGeH0R8IGdeEd8AMESuSFUmXkHiMOUDXTsrQW 0VTM5fdtK6KK1OdDHpJYMuVEAdyDFoWCf2H58psCRcXNauHS3IMWU+Isiah+Rp5ARNCxBSJcZMBtMqNwLB UTSsWvW7GcR5QJw9ZrK5BoMI26oRmlrzHqMVccTR2O LF0eMQPsPCWTKI1FpYJbrI2trrVfWHSpJZOSUhOfJ62ylKKxPEHgPILxNTZcCl4MYFBcF8XyuwHhfObs gjMrTAKbRTLLEI8BNCmkkmMxjNNdnUyoVE82rVjtJN1DYy6TEvOgJV5qmh5ZgQIgKg3AIIFvEi3IQQEc YWUtJZIfCNM7XFBjRoWvUDyyPTGpGULnDMQ4TOAhHV KtFZ3EChDzEQDpKwWwVNTuQFMhBHOogz6ISHYiFTLjXpj3JNLaOSOeMJBlKEpkKMOpRFQbDJT4KAYyPK QpJR1FLhOeXQLbUFP4WGpkBTAwYJUyjt6OQAOuRLIsQUhcYrDjDNLpADLdDSxmWGXkNWB5OJqeTIJxAK BlIK4GStNrLFJlRIX2VfhcVFVeQTFhux0YMJLkDOTo PdceXjQbXIIzOUJcCIcrJVQwSRT0AXCfPNQtSGNtVY3UNmLxMJVgOPppPSDvAFMsNLLxil5LAIFbCIUg XDD2YlOkOOWpSHZyVHusBFOiNLL7Waz0JDNdAFZiUG4PDmSrIXRfSWg6ZgIaPXBhVSBhwt2NQIMcIZUw OTgxNyAwMDAwMCBuDQowMDAwMDIwMTMzIDAwMDAwIG 0QXdBkNRFpQoOsEYHgWEPjXJLdpn5RPZMaKUFuIRM4RiXqQBLrJMFnSJipTOJeYLElGpP3ZGKcUIYzJE 1TJbNsGFUjJiN8NvRpLSFoMBWytr0LDDViKZIgPOr4ZlDtOTObLAPpZDktFRKlFYQoNCS5CZMjXIBkJK 8YEeRuFYWdCfY1ZBPdTPWeTLEyia3FSAEbBVAlVio4 YGBdFEOrGWCwJVoyNYAqDBHbSVS3JVJuQLTtPV7SDkZrPSObOdGoFBXlUOOaOBVvkj7UkYHcvCfavl4I HKuCFq2LmBznVQF6ZRsgDx9epWJtGrZsLQNQAz7TlpSwJAYdUQOZSSksEUOoYYM1AVNlYwnfEWgdG0N8 KBRlYJItKtjlXnY4VmL3Xxz0TvN8JAZkLmU9UCFbXc ZmFXqvHTF2IvL3BYBgGbDqMZLwOaZ+TO9aRGu+Hx5Om6XdpuH1rnAoNAhcMME0YJ6AXVIYU8ENUr== ID Date Data Source [id number] 11/04/2019 11:46:18 AM EDT [facility] Name Value Range Interpretation Code Description Data Mellissa rce(s) Supporting Document(s) Consultation [facility] NHYZWl9kCiJYJkCq51/HPKjrSBSzs8PsYExsVMt0LNzxRNXdH4SnFLG9oW8aNCO8TQfPOtFyQnHlMnL0 lbm [file] MTU+AA6fOMg+Rq7Jb1OqkyO8lvNqEUn6RUK4KC1SGMPFK1MACh== ID Date Data Source [id number] 10/28/2019 05:29:47 PM EDT [facility] Name Value Range Interpretation Code Description Data Mellissa rce(s) Supporting Document(s) Discharge Summary [facility] VTYTEh1ePlQZMbEt34/XQBjsRVExh6UgUVajCAa3YSbeUNTyF0AxARC7pH5zFMD1YOhWOgWcEmPdPhIf lbm [file] customer service [file] AgICAgICAgICAgICAgICAgICAgICAgICAgICAgICAg EHEnVUAtEPBrQNSxARIfKTOoDONzJUOoFEMnPU7EESEsJKGoBVQyIXOaJVNuAPAkMFUmPXZfZQFcUIKc ICAgICAgICAgICAgICAgICAgICAgICAgICAgICAgICAgICAgICAgICAgICAgICAgICAgICAgICAgICAg IIQcPDZwJTZqXE2NEOLbAFGrKXPxERWbIPYpQANhYR AgICAgICAgICAgICAgICAgICAgICAgICAgICAgICAgICAgICAgICAgICAgICAgICAgICAgICAgICAgIC OuUABkTHNkZEAaWFMwURTsHCXtYG9EECTqFVAjZRLoSYEuUQRrNGJcIILrVBFfECGsAGIpRUTaGTAsZB AgICAgICAgICAgICAgICAgICAgICAgICAgICAgICAg BLXfQVDyPTVsXYWqWTLrPREpDHGzIMLtXBFtIWEhCZ1QXAKeFBPlGHPnUYOoSJOhTHMuNDAnNGAcMDLl ICAgICAgICAgICAgICAgICAgICAgICAgICAgICAgICAgICAgICAgICAgICAgICAgICAgICAgICAgICAg TYRvDSBqQJSoFBDyMG5JINIwDBDlCPSvBWRsQAXoKF AgICAgICAgICAgICAgICAgICAgICAgICAgICAgICAgICAgICAgICAgICAgICAgICAgICAgICAgICAgIC FgNFMjHDOzKLHgTBQrILYuCMQyJZThCI4YJXEoHTRdEIZgQABmASTzXYSzJBVbRYMxVACbMXQvODJzMX AgICAgICAgICAgICAgICAgICAgICAgICAgICAgICAg UVOcOCFmKHEuFORmWJWwLHHaCGXuQICdHKBuZZJcBUYiNC5IVUVaERTyQWRsTSYwYMOaQCRyTJGxRPHm ICAgICAgICAgICAgICAgICAgICAgICAgICAgICAgICAgICAgICAgICAgICAgICAgICAgICAgICAgICAg GONuVFRrJECqEFBxYVIfGR4TBKVtCDGaXGUbWHTmNN AgICAgICAgICAgICAgICAgICAgICAgICAgICAgICAgICAgICAgICAgICAgICAgICAgICAgICAgICAgIC AiTRSxVYEmFVFzWCRlBGCvKATqGFWgDDErFX4LOVVyNNZcDHQhBOBlBZSeSRDsBGAkMBGiZTAbACMcKT AgICAgICAgICAgICAgICAgICAgICAgICAgICAgICAg EAGwIMNeAGWzPFNtNNLzIDPyDPCqIJNjUGNrXOFoDVVzLVFmYR8DHR56tQZax1Z2PDRjJG4wvds/Pg0K AXeaanHmiSEiPO1LSvGlGC5kbm8JJaEgRJ7ohw4WHNxZPmHaK1U9kMGfHSZyIVJHQzLmR60vWLimZs68 BGorPJBkJuNvCKl8Im5KTzBvN9jmZKYmQaY1LZFqTd P6SEAxTmG6VLGfZxCcYXGpAFXxRDEsIYRCLYN7TDLoOqOyIGnfQF0Hu7FywGB3FJr+Qs4ZUW3jp5HoBC tsQjWsKZ8rkt9RGEcNLxAyO2HzftD9KWCpYJCvMt9RMWUeDXJikNGySlRcOMXAPlFyX3ImsI75CZSZDe 4+FAmlzeZqRyiARfXoIEPgz3LaLYp8AN1QAUFlWAy8 xAToWJdhH3bxnfgbDPM0eG7wpgfeUbzwQ1ggaiWzhCSlTUjdB5gwbIPqpZiwRYVxJMHoFy2qMm9jWGFf NVUiVnQ2FAFUNR4HKCAzKMGktXTqGBVwRVXKNH9DDFroYOB8HKEafxGkkYEoCWupUZ3GQOPkcoEaHdXz MCBSDQo+Od7YPG0jx1OcMYexGOJoOM0fau2QCYdVYs NiV8U6hSJlL8T8VInjWb0JGZVyGYMnVoGcQPESDNqyML6OZY0lszE1VH5RrJQcPWQzUIVcvSKiLLy6S6 0wmRKaVQtiEM0TOLK+Isiah+Rr6ZQQDeJVKiVVYjKhKfXIMLNfWqH5FgA4ZDd8OxA3HoCJ98xYhvplNaFC ugMI6LTP8uZGHbZRDQIZ5RrSJpoV9fahSbKlQxJGGM SpSqA17orAZsLCXrUZHnREJuAv6PFBSsO4QwvwAoaPxjfyHpGSDdMBCVOJ9VWQyxrcNjoMQzaShmPN53 pGxzHE2RYh6CScJnSJ7bux6JpWUrHi3NLSGnOL7RGQNyAPEjJLPoSDH4OCQhYnRjNZkdAYTpNSQwNMI0 LDMiJDHlKN2UIsNfDKLbChz0BEflWVYzEDTqjc4BFB RzPRZzAGD8VDJjLQYvRBJyTBgcZTNiIIYwNIY3DPBgMFHtHV0MWmAqMFGbRHAkRBGqUNNwWKXdcx6EYE JiWRSsXZF4ZJDtREBmEWUfQRbiDWCtQVY4LTo5PWMfZATqXT4HYhHpUSExYIngZDJfQBTnUQAqxf8ALY XvBNKyQcT9MQDyGSUpGWQkRYojKUKdSCNoSlw9FIRg KIJlFV1QMqByKZRhLPNmPtTyMRNnBYIpxu2EOFTpVLVdJEO4TdOdGJDtQIIhZAkhAWVsFWO2IGLqOHRy MCAqRR4VYhUlJYOpMImqDJbjRPIaKIMvub3IQVNxLQMzIWmrVbHjOSTfXKYaOJucUHZtLFS0CKVgZKEj OWAdZW1AXsDhYNAsYlWcYsHiRQOgUSFtxa9IXDRuYU XwZUG0PCKbFAKoLOJhEWkpERLlAZUbNLVnHELzLJRyVT2UWbObQAXhFhS5WBHnALRgEKUvxz1GNHJaLS HeQNJbJyGrUAGyYKWtWQpvCVPcJWUbSLYpYLWdXKDyYB8CJpEeKFOrHuW2GzWnSGQtFXRour3JWUWkQX SjIie8FYNdWQElKLYsPGxkECIrMTDfMJE3LQUgVHYg AY8WNaLwTOSvDhpgZJOzRNDvFZMxxf3TNXKwUFBfWQGeNOWrNCYqULRfIGljTTMySKS6WWJvOXEvPCMp KD1ZXpIgINQhBrs8EYJpJZFnCDHavi5OVVFnVDSsCVmyMuMrKULzYZGtDPdePTCjHIF1JwA4OBHxMWMx ES5OHjRtLRSwRzG3CAJxHVYqCPSxul8VBGJyRTWoCP m0LzPsGXAiVHTvOCujLEUmCBZdZOQmHYAxMBPaUX0INzQsAMycSCSZOdt1YXkxR5q2HCVfLI8SY6Lrb0 StFpFeRSBNIVidMW7iswShRTGoQs1CQ6gXGit6AfJ6KFCgSUOyXrP5UNV0QMOdKEY2HiPhDzCdYJIzRx 3nQFBfVjAwNMSyPiN5KTTkYyxuJHSoEGMbSVWzKUBc PIO7EbNvIY7GQc1BJtV1XDB2gUPtMm7QTrWfVJwWYpWmQI2BSYw= ID Date Data Source [id number] 10/28/2019 06:24:14 AM EDT [facility] Name Value Range Interpretation Code Description Data Mellissa rce(s) Supporting Document(s) Leukocytes [#/volume] in Blood by Automated count 9.7 10*3/uL 4-10 [facility] Erythrocytes [#/volume] in Blood by Automated count 4.19 10*6/uL 4.1- 5.3 [facility] Hemoglobin [Mass/volume] in Blood 11.5 g/dL 11.5-15.5 [facility] Hematocrit [Volume Fraction] of Blood by Automated count 34.8 % 3 6-[address] [facility] Erythrocyte mean corpuscular volume [Entitic volume] by Auto mated count 83.1 fL 80-96 [facility] Erythrocyte mean corpuscular hemoglobin [Entitic mass] by Automated count 27.4 pg 27-33 [facility] Erythrocyte mean corpuscular hemoglobin concentration [Mass/volume] by Automated count 33.0 g/dL 32.0-[facility] width [Ratio] by Automated count 15.2 % 11.5-14.[address] [facility] Platelets [#/volume] in Blood by Automated count 261 10*3/uL 150-400 [facility] Differential cell count method - Blood [facility] Neutrophils/100 leukocytes in Blood by Automated count 53 % [facility] Lymphocytes/100 leukocytes in Blood by Automated count 38 % [facility] Monocytes/100 leukocytes in Blood by Automated count 7 % [facility] Eosinophils/100 leukocytes in Blood by Automated count 2 % [facility] Basophils/100 leukocytes in Blood by Automated count 0 % [facility] Neutrophils [#/volume] in Blood by Automated count 5.12 10*3/uL 1.8-[address] [facility] Lymphocytes [#/volume] in Blood by Automated count 3.70 10*3/uL 1.2-[address] [facility] Monocytes [#/volume] in Blood by Automated count 0.66 10*3/uL 0-0.8 [facility] Eosinophils [#/volume] in Blood by Automated count 0.14 10*3/uL 0-0.5 [facility] Basophils [#/volume] in Blood by Automated count 0.03 10*3/uL 0-0.2 [facility] Nucleated erythrocytes/100 leukocytes [Ratio] in Blood by Automated count 0 /100{WBCs} 0-0 [facility] ID Date Data Source [id number] 10/28/2019 06:52:08 AM EDT [facility] Name Value Range Interpretation Code Description Data Mellissa rce(s) Supporting Document(s) Prothrombin time (PT) 12.2 s 12.5-14.[address] [facility] INR in Platelet poor plasma by Coagulation assay 0.90 [facility] Routine intensity oral anticoagulation I NR is typically 2.0-3.0. Target INR must be clinically individualized. ID Date Data Source [id number] 10/27/2019 07:34:12 PM EDT [facility] Name Value Range Interpretation Code Description Data Mellissa rce(s) Supporting Document(s) ED Provider Note [facility] ETDIQk4qCfNRYmOn83/QOBqlMJKyn7RbLNkzJZv6XJpsQJBsO2GcJDB0sF7rXKL9VQgKUjSjMvRmMoMi lbm LdHhuAFnMxGNUvTpfGWjSrVAolPmtwtBJzCW3KmVM7BXMfX04mAGIoFGNvQ6BoWZQbLRe+Fy7GOEDyyF GaSS0QXbnT3R1sSslDLb3ddr6R/KEDuzvUj42tog6AYwwPwUTRDudR4lKwTiWJLyjALesBYl12eOX3yT 8oafKwzoVBtzsr0Wpy+fA1NLbv872o07GDseYVy4fp FlYY09v21k/W5eRDnVv0+JUNIg+Bkh131GUkB0d+/dUfunq3g8pBaxcjnG8NjxysiGBXhhsLHg8Ef/Vi /khoGOF7BXriB+ppVZtcL6Ol46h867gqs3MfDT4KkwhF+EMahJkPptr497O8US3qQw9VwnozqN5JRV9d YCAIkwxzFl9oD3jOrzOswTQy9Twy8fHnAvfOAE1M4i stivvJmT8DQ9Zk4hEoYgks7pVtyXfkpBnwtTpLYoCpo5wZwDGe3p8CBLSeTtBR9LgRjhJrSRfXPf1Ikb 7mdsYZVL9IcUqZ0M4rOSsotDnUWTxHuJfqqGQ83Fp7suC3VECjGH9KXay6vyyfnhihNLzlI8NKn9PU4s sQTpUnnYjzv3DWtyKctcX4+1Zjr6VSJnQOadjm0shU ZMiygRP145IBWAZZv/EI3fIygElcyLzJcOk679rjtbDKtT6E5AnVhoBWJwxZTnfIK5q9INlYkHs6vOjI dimyuZBBfBNvuJ8QBLCx5Rq9HtOFQmBFR7PUGVaps75u08/YQonsSnuCm5OmR+geymqamO4ht3N+Gi3v wumqlY6UK3d5jHlLs7r2tHat8/vtBZzBn9hgnO8+fF G67ugUEU9zGRwWoFdJr8l0vzOqbKlCcFwr7m/anQuj04GwA0huwiQa4ZeiOWck6gF61OgOKIhptjRn76 SAMIA+HPQmDbCX/IRiTHGuwCRSxyPXn21nUnorVGvcZYH2wJ8ajrx+cxRNdwvZI6+6RXxmg85xbALrqHih [file] 1Ko4LvpyX3ncSfZMa8UyS5QL2BJLIQC4XKKi== ID Date Data Source [id number] 10/27/2019 05:40:[address] [facility] Name Value Range Interpretation Code Description Data Mellissa rce(s) Supporting Document(s) Leukocytes [#/volume] in Blood by Automated count 8.8 10*3/uL 4-10 [facility] Erythrocytes [#/volume] in Blood by Automated count 4.04 10*6/uL 4.1- 5.[address] [facility] Hemoglobin [Mass/volume] in Blood 11.0 g/dL 11.5-15.[address] [facility] Hematocrit [Volume Fraction] of Blood by Automated count 33.6 % 3 6-[address] [facility] Erythrocyte mean corpuscular volume [Entitic volume] by Auto mated count 83.2 fL 80-96 [facility] Erythrocyte mean corpuscular hemoglobin [Entitic mass] by Automated count 27.3 pg 27-33 [facility] Erythrocyte mean corpuscular hemoglobin concentration [Mass/volume] by Automated count 32.8 g/dL 32.0-36.0 [facility] E[facility]th[facility] distribution width [Ratio] by Automated count 15.5 % 11.5-14.[address] [facility] Platelets [#/volume] in Blood by Automated count 274 10*3/uL 150-400 [facility] Differential cell count method - Blood [facility] Neutrophils/100 leukocytes in Blood by Automated count 52 % [facility] Lymphocytes/100 leukocytes in Blood by Automated count 38 % [facility] Monocytes/100 leukocytes in Blood by Automated count 7 % [facility] Eosinophils/100 leukocytes in Blood by Automated count 2 % [facility] Basophils/100 leukocytes in Blood by Automated count 1 % [facility] Neutrophils [#/volume] in Blood by Automated count 4.69 10*3/uL 1.8-[address] [facility] Lymphocytes [#/volume] in Blood by Automated count 3.31 10*3/uL 1.2-[address] [facility] Monocytes [#/volume] in Blood by Automated count 0.57 10*3/uL 0-0.8 [facility] Eosinophils [#/volume] in Blood by Automated count 0.19 10*3/uL 0-0.5 [facility] Basophils [#/volume] in Blood by Automated count 0.05 10*3/uL 0-0.2 [facility] Nucleated erythrocytes/100 leukocytes [Ratio] in Blood by Automated count 0 /100{WBCs} 0-0 [facility] ID Date Data Source [id number] 12/21/2019 06:56:24 AM EDT [facility] Service Cmnt XXX-Imp : NoneAcid fast Stn XXX : No Acid fast bacilli seen on Fluorochrome stain.Microorganism XXX Cult : No growth 56 days Name Value Range Interpretation Code Description Data Mellissa rce(s) Supporting Document(s) ID Date Data Source [id number] 10/27/2019 12:55:31 PM EDT [facility] Service Cmnt XXX-Imp : NoneP jiroveci Ag Spt Ql IF : Negative for Pneumocystis jiroveci Name Value Range Interpretation Code Description Data Mellissa rce(s) Supporting Document(s) ID Date Data Source [id number] [facility] NoneMicroorganism XXX Cult : No growth 28 days Name Value Range Interpretation Code Description Data Mellissa rce(s) Supporting Document(s) ID Date Data Source [id number] 10/29/2019 04:07:56 PM [facility] Name Value Range Interpretation Code Description Data Mellissa rce(s) Supporting Document(s) Galactomannan Ag [Presence] in Serum or Plasma by Immunoassa y 0.09 Index 0.00-0.49 [facility] (NOTE)Performed At: [facility] [address] [place], [place] [id number] Benoit MD Ph:[id number] At: [facility] [id number] [place], [place] [id number] Anjen [facility] Ph:[phone] ID Date Data Source [id number] 10/29/2019 07:29:37 AM EDT [facility] Service Cmnt XXX-Imp : NoneMicroorganism XXX Cult : No growth 3 days Name Value Range Interpretation Code Description Data Mellissa rce(s) Supporting Document(s) ID Date Data Source [id number] [facility] : NoneMicroorganism XXX Cult : Culture not performed due to a COVID-19 safety advisory from the [facility] Name Value Range Interpretation Code Description Data Mellissa rce(s) Supporting Document(s) ID Date Data Source [id number] 10/26/2019 01:45:35 PM EDT [facility] Name Value Range Interpretation Code Description Data Mellissa rce(s) Supporting Document(s) History and Physical [facility] NQTCHi0aHyPKHeWg49/YGZbdTDPjt3ZxKIchDZb3YJrnXJJnS0AcJMH6dU8dMOM2MXjOEqGnZhBzVcIe lbm CzVojWDaIfETOeTkuRUyGeSKxzAfzltFTvDG4DgYF3FOEfA57aAVGnBUOuQ1YwMWC2KYF+Ac9ZGYSrpF JgHT1ORscW9Giys4u06egE4o4FMSW6QWCAolttb5qZtwm7oBF1byzGEiev8TfYaMHEcvW59q2LQ6F9hG PvKUAvDRqoajuvOO1B2+IhMlb8+k211tRkrFU/tz+9 wGK3C/xAI2vrf45sh+1+xv6taGE24vZB2b+2+W8J4tU7/ybnXYmw8BXA86t7RCIqbAaSlo2fz3ZeNb3f z0M8SInN+6A5OrPORzIp9v4//sgm/1svFszQe6zvstJ9LQhowlEDWpzJlfiSaEjZrqzRULtoDVZhcd8X ilIGokSjhfI0Z6tGLLDK191F7EW9jllqv8axu4dsat Lp00Am7EeHbGbMkB98RJ8K2qHgl1LkGXLgL0PBSTx0qdz8BQksw1hYO/DkjpahKT/LFCfRnzgzAzdTHi 2gvlUcQe0vl8sC10Rejqo3N36bl2BgiRhRq3oCAjASUn8OWsAxyR9tD1XhhA4esLBquRwjDNfuiZ/adam [file] ICAgICAgICAgICAgICAgICAgICAgICAgICAgICAgIC AgICAgICAgICAgICAgICAgICAgICAgICAgICANCiAgICAgICAgICAgICAgICAgICAgICAgICAgICAgIC AgICAgICAgICAgICAgICAgICAgICAgICAgICAgICAgICAgICAgICAgICAgICAgICAgICAgICAgICAgIC AgICAgICAgICANCiAgICAgICAgICAgICAgICAgICAg ICAgICAgICAgICAgICAgICAgICAgICAgICAgICAgICAgICAgICAgICAgICAgICAgICAgICAgICAgICAg ICAgICAgICAgICAgICAgICAgICANCiAgICAgICAgICAgICAgICAgICAgICAgICAgICAgICAgICAgICAg ICAgICAgICAgICAgICAgICAgICAgICAgICAgICAgIC AgICAgICAgICAgICAgICAgICAgICAgICAgICAgICANCiAgICAgICAgICAgICAgICAgICAgICAgICAgIC AgICAgICAgICAgICAgICAgICAgICAgICAgICAgICAgICAgICAgICAgICAgICAgICAgICAgICAgICAgIC AgICAgICAgICAgICANCiAgICAgICAgICAgICAgICAg ICAgICAgICAgICAgICAgICAgICAgICAgICAgICAgICAgICAgICAgICAgICAgICAgICAgICAgICAgICAg ICAgICAgICAgICAgICAgICAgICAgICANCiAgICAgICAgICAgICAgICAgICAgICAgICAgICAgICAgICAg ICAgICAgICAgICAgICAgICAgICAgICAgICAgICAgIC AgICAgICAgICAgICAgICAgICAgICAgICAgICAgICAgICANCiAgICAgICAgICAgICAgICAgICAgICAgIC AgICAgICAgICAgICAgICAgICAgICAgICAgICAgICAgICAgICAgICAgICAgICAgICAgICAgICAgICAgIC AgICAgICAgICAgICAgICANCiAgICAgICAgICAgICAg ICAgICAgICAgICAgICAgICAgICAgICAgICAgICAgICAgICAgICAgICAgICAgICAgICAgICAgICAgICAg ICAgICAgICAgICAgICAgICAgICAgICAgICANCiAgICAgICAgICAgICAgICAgICAgICAgICAgICAgICAg ICAgICAgICAgICAgICAgICAgICAgICAgICAgICAgIC AgICAgICAgICAgICAgICAgICAgICAgICAgICAgICAgICAgICANCjw/wMFsU8euiVYivhK7W1xpHs9KKq 4RLU1lw3MeFJOwGZoocqIhJqlPVzHdRPLcLqjAUkf9AZqbHY6ZgDZpL4LkQ2VyEBebIW3MVQOoTWGvoX XgAKKlVMJqIqJ1DSGtGJaeXS6AwFOqQMdvGTErDXKr WsHsBVTbOJLjQBDrGOIhJWAGRM5NSuPuD9XzvC76RVSMQw7+RIfkfzAhGqvIKtW6YMPqs1ZmQPb7CX4M MLSeRilft5OeRyRtRUCOMFpfCJ0GUCB7QOM2AIQlGj7PXSHkT196wwVtER7JHd5ZOrCyTE0zul5MIbIy STAmDdtRZkq5PQrbVB6GwGBeAVmRZcSkZtblSZZie1 XrUEYuVIkiMUzpa3rnDS6CICU8ONgdBgDbRaEvDKKvKMv5QVJOJCjAKsWfQ1Pih3OmNmF0LRAxJaYyJO pmTDCuYtX9PH16wDqxKF9PZMAjESMaQO34XWS7EPSnXr5DYj1WWjAkXB3yxl3SJyKwVKWnNxrSCgh9VP dzIL9JyNZvS1XunKMqs6cIIwQbA6XIBTDhQOSvCl8Y DCTcIbHmDSJmKBooVF6wHRDtLYISpWytsrG9GY5LGM1rhxAqXV4MIaAaQt6dAl9DXsGwR2UoN4CwVNIw KXJZLRcvLU9BDUfeNO6oYU2Jl9BYuPPeiI6sby0GYDLwRHFxNjqrry0QLeefE5T9oUupCJOvNfSnOXWA CItgFX2WIIPuQTY8QETvVtZvCOTRUyQxG95iUV3BH8 Auv38zXiK0IZMbKmCeZYeeFI80jRmkppDemKIlqOpwIN7OJg4+DQplbmRvYmoNCnhyZWYNCjAgMzcNCj FyAKSeJWOpLELjItE1BsXvTh7RHLKyDTBgKQYjMkKyOPUuATPsLVbbPZFdINB0FLt5VTToHMFiIC9JCk MwEDNlCeS0SZNkOIIyRPOrdl1TNJUeNSKbLMV2UuEs NBPtQARbNVfgDTYdLFKrNSftEQHwLEZcWX5LWrSqFOOaTYFnUHViNRGdYULbjn6ZPVWjIXZaXiIvJUPm AZPnXEXfFZlhHKEqAEH2GzE5DNCbQPFpTZ5ZYpZlVITqSAc2KDTqIFRlAWMjaa4UVJQdBSDgSKPdOwRq BBTvYUSxVVwdPMDaADAmWpW1XKHoVXCfXY4NDyYdIZ JjUTK4SmVoSJUvWKUexw9MVGFfUDHeDVhmMXPyQLLuUTNnBVzvGUNvOROyBHZ5HBJfINFuIS0CNtRsCE XvIPOgNWKwRECzLXRlow2WZXQxMDRiFeH5UPXfMEXdWAEwRKtlBYAyYEByMDdyXEIcJPErAB9SYsEyXY BhAHF0FCpjNOGhSTYfum1WHHBcBYVqNDXyJTZtILKn YAWuHLsnBGAgWQC0RQEdBSPaMHZlVZ6ISoDlWDOqTWXmKIgtZYDtPBHnzn6PBRBgGRShQIu6YTCnSUQw QCQyDFvoJQNkHML2QDJ2KRAyTTMgBK4SIwWcQQFcUJDtDVtmPPToZTKfrl7FRNXbFUNoCbzqMqKeBHMo FSHzSRocLCTiIBY3JCChUJXnEBFrSO5SOgTnSSMpCk cmIzJlGWHdBRNser3MOMWrFUMkZOY4VNMaXLAhYLAaUUcnNMLpZMJ8PeN4YVVeKWZySI6GAoLiLDQaOc k5KAubIDOsBJNaex7JQMQsOMMvXMm3JzFuMEJbWKRzRZpxWMHqLTM3OJH9QMPyBNJrYZ3ZEkLtWBDrLo L6HVAyWOMqUYOpdh9NLZJhIBLbCAe8FBRiWDCjMSYz EHwoIOBmJZHrUGJtHAUqXALzHN6XNyXgLDZxEjXePlVrTUUcWFSwfu6OmSLjzThbso8HMDmQDu3HcHnm POR1RLltSy5blUEuXjTqBKTJVf9NdlGwIVBzGIYHMDiuTLHnSBWjJhl5ObTeYwBlApmjIPugFrUdOxGm KlP5TXD8CyBqRjA3JCE4YllsFsD7HLK0OQAgPUPcUX ZiCKQnVZhvXUj7J1U+OU4bDSg+Wc9Tw4VljhJ9nbMhUAxuPsOgEg2FPGKSY3UVMl== ID Date Data Source [id number] 10/26/2019 08:21:20 AM EDT [facility] Name Value Range Interpretation Code Description Data Mellissa rce(s) Supporting Document(s) Progress Note [facility] [id number]/[id number]SE2gD0yHZT6BAgXSnOyBgCyAqLr lbm [file] [id number]= ID Date Data Source [id number] 10/26/2019 05:11:05 AM EDT [facility] Name Value Range Interpretation Code Description Data Mellissa rce(s) Supporting Document(s) Leukocytes [#/volume] in Blood by Automated count 13.1 10*3/uL 4-[address] [facility] Erythrocytes [#/volume] in Blood by Automated count 3.79 10*6/uL 4.1- 5.[address] [facility] Hemoglobin [Mass/volume] in Blood 10.4 g/dL 11.5-15.[address] [facility] Hematocrit [Volume Fraction] of Blood by Automated count 31.7 % 3 6-[address] [facility] Erythrocyte mean corpuscular volume [Entitic volume] by Auto mated count 83.5 fL 80-96 [facility] Erythrocyte mean corpuscular hemoglobin [Entitic mass] by Automated count 27.5 pg 27-33 [facility] Erythrocyte mean corpuscular hemoglobin concentration [Mass/volume] by Automated count 33.0 g/dL 32.0-[facility] distribution width [Ratio] by Automated count 15.6 % 11.5-14.[address] [facility] Platelets [#/volume] in Blood by Automated count 258 10*3/uL 150-400 [facility] Differential cell count method - Blood [facility] Neutrophils/100 leukocytes in Blood by Automated count 68 % [facility] Lymphocytes/100 leukocytes in Blood by Automated count 24 % [facility] Monocytes/100 leukocytes in Blood by Automated count 6 % [facility] Eosinophils/100 leukocytes in Blood by Automated count 1 % [facility] Basophils/100 leukocytes in Blood by Automated count 1 % [facility] Neutrophils [#/volume] in Blood by Automated count 9.00 10*3/uL 1.8-[address] [facility] Lymphocytes [#/volume] in Blood by Automated count 3.08 10*3/uL 1.2-[address] [facility] Monocytes [#/volume] in Blood by Automated count 0.84 10*3/uL 0-0.[address] [facility] Eosinophils [#/volume] in Blood by Automated count 0.09 10*3/uL 0-0.5 [facility] Basophils [#/volume] in Blood by Automated count 0.08 10*3/uL 0-0.2 [facility] Nucleated erythrocytes/100 leukocytes [Ratio] in Blood by Automated count 0 /100{WBCs} 0-0 [facility] ID Date Data Source [id number] 10/26/2019 05:29:20 AM EDT [facility] Name Value Range Interpretation Code Description Data Mellissa e(s) Supporting Document(s) Bicarbonate [Moles/volume] in Serum 25 mmol/L 22-29 [facility] Chloride [Moles/volume] in Serum or Plasma 98 mmol/L 98-107 [facility] Creatinine [Mass/volume] in Serum or Plasma 0.44 mg/dL 0.50-0.[address] [facility] Glucose [Mass/volume] in Serum or Plasma 88 mg/dL 70-140 [facility] Potassium [Moles/volume] in Serum or Plasma 3.6 mmol/L 3.4-5.1 [facility] Sodium [Moles/volume] in Serum or Plasma 134 mmol/L 136-[address] [facility] Urea nitrogen [Mass/volume] in Serum or Plasma 9 mg/dL 6-20 [facility] Anion gap 3 in Serum or Plasma 11 mmol/L 8-15 [facility] Osmolality of Serum or Plasma by calculation 276 mosm/kg 275-300 [facility] Creatinine/Urea nitrogen [Mass Ratio] in Serum or Plasma 20 [facility] Calcium [Mass/volume] in Serum or Plasma 8.7 mg/dL 8.6-10.0 [facility] Glomerular filtration rate/1.73 sq M pre dicted among non-blacks [Volume Rate/Area] in Serum or Plasma by Creatinine-based formula (MDRD) >[address] [facility] Glomerular filtration rate/1.73 sq M pre dicted among blacks [Volume Rate/Area] in Serum or Plasma by Creatinine-based formula (MDRD) >60 [facility] ID Date Data Source [id number] 10/27/2019 04:40:00 PM EDT [facility] CYTOPATHOLOGY REPORTName: NEREYDA COLÓNMRN: [id number] Number: [id number] Date: 10/26/2019 00:00Received Date: 10/26/2019 16:14Physician(s): TYRON THAYER MD OUEIDA, ZAHER, MD Copy To:RUSSEL HERNANDEZ MBBCHSpecimen(s) ReceivedA: LUNG, BRONCHIAL LAVAGE,LEFT UPPERClinical History:Hypoxic respiratory failure. Rule out hypersensitivity pneumonitis. Nohistory of malignancy. Request for differential cell count and lipidmacrophage evaluation. DiagnosisLUNG, BRONCHIAL LAVAGE, LEFT UPPER: NO EVIDENCE OF MALIGNANCYComment/ctsReviewing Cytotech: CUCA Cruz(ASCP) (IAC)CELESTE Rodriguez M.D.Electronically Signed By Harsh Moncada M.D. 10/27/2019 16:40:45The attending pathologist named above attests that he/she has personallyreviewed the relevant preparation(s) for the specimen(s) and rendered thefinal diagnosis. Microscopic DescriptionThe specimen consists of groups of reactive pneumocytes in a background ofabundant macrophages. The differential cell count is: 85% macrophages, 9%neutrophils, 5% eosinophils and 1% lymphocytes. The Oil Red O stain showsabundant lipid laden macrophages. /cts/noemi Gross Mdiqusbrjjl03 ml langley cloudy fluid received: Specimen processed: 1 ThinPrep Papstained slide, 1 slide prepared by centrifugation for Diff Quik stain and1 formalin-vapor fixed slide for Oil Red O (lipid) stain. This report may include one or more immunohistochemical stain results thatuse analyte specific reagents. All positive and negative controls havebeen reviewed by the attending pathologist and are satisfactory. The testswere developed and their performance characteristics determined by [facility] Patholol[facility]. They have not been cleared or approved by [place] Food and Drug Administration. The FDA has determined that suchclearance or approval is not necessary. Name Value Range Interpretation Code Description Data [facility] rce(s) Supporting Document(s) ID Date Data Source [id number] 10/25/2019 03:33:23 AM T [facility] Name Value Range Interpretation Code Description Data [facility] rce(s) Supporting Document(s) Leukocytes [#/volume] in Blood by Automated count 20.1 10*3/uL 4-[address] [facility] Erythrocytes [#/volume] in Blood by Automated count 3.94 10*6/uL 4.1- 5.[address] [facility] Hemoglobin [Mass/volume] in Blood 10.7 g/dL 11.5-15.[address] [facility] Hematocrit [Volume Fraction] of Blood by Automated count 33.0 % 3 6-[address] [facility] Erythrocyte mean corpuscular volume [Entitic volume] by Auto mated count 83.7 fL 80-96 [facility] Erythrocyte mean corpuscular hemoglobin [Entitic mass] by Automated count 27.1 pg 27-33 [facility] Erythrocyte mean corpuscular hemoglobin concentration [Mass/volume] by Automated count 32.4 g/dL 32.0-36.0 [facility]th[facility] distribution width [Ratio] by Automated count 15.7 % 11.5-14.[address] [facility] Platelets [#/volume] in Blood by Automated count 274 10*3/uL 150-400 [facility] Differential cell count method - Blood [facility] Neutrophils/100 leukocytes in Blood by Automated count 83 % [facility] Lymphocytes/100 leukocytes in Blood by Automated count 11 % [facility] Monocytes/100 leukocytes in Blood by Automated count 6 % [facility] Eosinophils/100 leukocytes in Blood by Automated count 0 % [facility] Basophils/100 leukocytes in Blood by Automated count 0 % [facility] Neutrophils [#/volume] in Blood by Automated count 16.62 10*3/uL 1.8- 7.[address] [facility] Lymphocytes [#/volume] in Blood by Automated count 2.16 10*3/uL 1.2-[address] [facility] Monocytes [#/volume] in Blood by Automated count 1.22 10*3/uL 0-0.[address] [facility] Eosinophils [#/volume] in Blood by Automated count 0.03 10*3/uL 0-0.5 [facility] Basophils [#/volume] in Blood by Automated count 0.02 10*3/uL 0-0.2 [facility] Nucleated erythrocytes/100 leukocytes [Ratio] in Blood by Automated count 0 /100{WBCs} 0-0 [facility] ID Date Data Source [id number] 10/25/2019 04:08:21 AM T [facility] Name Value Range Interpretation Code Description Data [facility] rce(s) Supporting Document(s) Bicarbonate [Moles/volume] in Serum 24 mmol/L 22-29 [facility] Chloride [Moles/volume] in Serum or Plasma 100 mmol/L 98-107 [facility] Creatinine [Mass/volume] in Serum or Plasma 0.41 mg/dL 0.50-0.[address] [facility] Glucose [Mass/volume] in Serum or Plasma 111 mg/dL 70-140 [facility] Potassium [Moles/volume] in Serum or Plasma 3.5 mmol/L 3.4-5.1 [facility] Sodium [Moles/volume] in Serum or Plasma 134 mmol/L 136-[address] [facility] Urea nitrogen [Mass/volume] in Serum or Plasma 10 mg/dL 6-20 [facility] Anion gap 3 in Serum or Plasma 10 mmol/L 8-15 [facility] Osmolality of Serum or Plasma by calculation 278 mosm/kg 275-300 [facility] Creatinine/Urea nitrogen [Mass Ratio] in Serum or Plasma 23 [facility] Calcium [Mass/volume] in Serum or Plasma 8.7 mg/dL 8.6-10.0 [facility] Glomerular filtration rate/1.73 sq M pre dicted among non-blacks [Volume Rate/Area] in Serum or Plasma by Creatinine-based formula (MDRD) >[address] [facility] Glomerular filtration rate/1.73 sq M pre dicted among blacks [Volume Rate/Area] in Serum or Plasma by Creatinine-based formula (MDRD) >60 [facility] ID Date Data Source [id number] 10/25/2019 04:16:52 AM [facility] Name Value Range Interpretation Code Description Data Mellissa rce(s) Supporting Document(s) Procalcitonin [Mass/volume] in Serum or Plasma 0.95 ng/mL <0.[address] [facility] (NOTE) < 0.25 ng/mL Bacterial infec tion unlikely,particularly lower respiratory tract infections.0.25 -<0.50 ng/mL Low risk for progression to severe sepsis/septic shock. Localized infection is possible. Measurement done early (<6 hours) after systemic process starts may still be low.0.50 - 2.00 ng/mL Moderate risk for progression to sepsis/septic shock. > 2.00 ng/mL High risk for progression to sepsis/septic shock. ID Date Data Source [id number] 10/27/2019 02:07:58 PM [facility] Name Value Range Interpretation Code Description Data Mellissa rce(s) Supporting Document(s) Angiotensin converting enzyme [Enzymatic activity/volu me] in Serum or Plasma 44 U/L 14-82 [facility] (NOTE)Performed At: RN [facility] [address] [id number] Kumar MD Ph:[phone] ID Date Data Source [id number] 10/30/2019 07:06:38 PM [facility] Value Range Interpretation Code Description Data Mellissa rce(s) Supporting Document(s) Aspergillus fumigatus 1 Ab [Presence] in Serum by Immune dif fusion (ID) Negative [facility] Saccharopolyspora rectivirgula Ab [Presence] in Serum by Immune diffusion (ID) Negative [facility] (NOTE)Effective October 26, 2019 this isaiah t will be made non-orderable. No replacement number is available. For Further information, please contact your local [facility] [employer]. Thermoactinomyces vulgaris Ab [Presence] in Serum by Immune diffusion (ID) Negative [facility] (NOTE)Effective October 26, 2019 this isaiah t will be made non-orderable. No replacement number is available. For Further information, please contact your local [facility] [employer]. Aureobasidium pullulans Ab [Presence] in Serum Negative [facility] (NOTE)Effective October 26, 2019 this isaiah t will be made non-orderable. No replacement number is available. For Further information, please contact your local [facility] [employer]. Thermoactinomyces sacchari Ab [Presence] in Serum Negative [facility] (NOTE)Effective October 26, 2019 this isaiah t will be made non-orderable. No replacement number is available. For Further information, please contact your local [facility] [employer]. [place] serum Ab [Presence] in Serum by Immune diffusion (ID) Negative [facility] (NOTE)Effective October 26, 2019 this isaiah t will be made non-orderable. No replacement number is available. For Further information, please contact your local [facility].Performed At: [facility] [id number] Sanjai MD Ph:[phone] ID Date Data Source [id number] [facility]2019 [facility]44[facility] Interpretation Code Description Data Mell[facility] rce(s) Supporting Document(s) Calcium.ionized [Moles/volume] in Arterial blood 1.21 mmol/L 1.13-1.[address] [facility] ID Date Data Source [id number] [facility]/24/2019 01:34:[facility] Name Value [facility] Interpretation Code Description Data Mellissa rce(s) Supporting Document(s) History and Physical [facility] OKSJRx1oUdUDEeKe02/XERpmZGQyn6AcZUqcTOo3GWkjYQDqI8BmEJV3iB0zKJW4CInIOiWzRuOuEhF0 m [file] AgICAgICAgICAgICAgICAgICAgICAgICAgICAgICAgICAgICAgICAgICAgICAgICAgICAgICAgICAgIC AgICAgICAgICAgICAgICAgICANCiAgICAgICAgICAg ICAgICAgICAgICAgICAgICAgICAgICAgICAgICAgICAgICAgICAgICAgICAgICAgICAgICAgICAgICAg ICAgICAgICAgICAgICAgICAgICAgICAgICAgICANCiAgICAgICAgICAgICAgICAgICAgICAgICAgICAg ICAgICAgICAgICAgICAgICAgICAgICAgICAgICAgIC AgICAgICAgICAgICAgICAgICAgICAgICAgICAgICAgICAgICAgICANCiAgICAgICAgICAgICAgICAgIC AgICAgICAgICAgICAgICAgICAgICAgICAgICAgICAgICAgICAgICAgICAgICAgICAgICAgICAgICAgIC AgICAgICAgICAgICAgICAgICAgICANCiAgICAgICAg ICAgICAgICAgICAgICAgICAgICAgICAgICAgICAgICAgICAgICAgICAgICAgICAgICAgICAgICAgICAg ICAgICAgICAgICAgICAgICAgICAgICAgICAgICAgICANCiAgICAgICAgICAgICAgICAgICAgICAgICAg ICAgICAgICAgICAgICAgICAgICAgICAgICAgICAgIC AgICAgICAgICAgICAgICAgICAgICAgICAgICAgICAgICAgICAgICAgICANCiAgICAgICAgICAgICAgIC AgICAgICAgICAgICAgICAgICAgICAgICAgICAgICAgICAgICAgICAgICAgICAgICAgICAgICAgICAgIC AgICAgICAgICAgICAgICAgICAgICAgICANCiAgICAg ICAgICAgICAgICAgICAgICAgICAgICAgICAgICAgICAgICAgICAgICAgICAgICAgICAgICAgICAgICAg ICAgICAgICAgICAgICAgICAgICAgICAgICAgICAgICAgICANCiAgICAgICAgICAgICAgICAgICAgICAg ICAgICAgICAgICAgICAgICAgICAgICAgICAgICAgIC AgICAgICAgICAgICAgICAgICAgICAgICAgICAgICAgICAgICAgICAgICAgICANCiAgICAgICAgICAgIC AgICAgICAgICAgICAgICAgICAgICAgICAgICAgICAgICAgICAgICAgICAgICAgICAgICAgICAgICAgIC AgICAgICAgICAgICAgICAgICAgICAgICAgICANCjw/ fEOoV5rveTFbyzP3H9vzId8IHn1RYB4ia4DoGTRgGIpwmsYeYhuREhWdHUVqSbuEMlr4HPukHN9ClKCw D8UlV8PnVCimHF3QOBWiYPIvkNMtAWXpDWJoLxX8ZAEaQBhvHT7WfVPtGKyrZLWqQPTgLtGrPLJoRJAk IFIgMTEgMCBSIDEzIDAgUiAxNSAwIFIgMTcgMCBSIF 6IMbBjQ0FphB41YUeKOt2+YTqybwBsDpkOPaFxBXZou6NvQOz1HY7QHBAfHcwyo3GoQUDsWPPMVOioTR 2ETVW0BYOsDTWdQd7KRNHrQ101ceUeUI8ACs4SVbJrYL6cax9FMDAlMNIaYzzZVxe2ZYnpWV6SoHZcNK tCEwWfXoufSCcwrRZhHXTkDCxmh5QnTB8lRV3OHUD3 OYwaSMeiWeJeWWHuVRn1HnVEJCwCXuIvK7Lzw5HbVnJ3EMVyTeYxDYkeWDEyMnN0SY64xQgnRX6LVRBu TBZgCO47CTAvPOQaYm5FLm7SQtPvGW3msy4OKKJdSPAdEenNHgg0DPtnQD7SsXYlY6FozJYpx5iEYeHn T7ANIKH6LZMbJu9LIYEzElCcAOSaISklIR4yYDGiMG VNcOyslxG0FR5KCR8hhaJnXD6UZcBmKi2dYt9CXrShQ9ZsH9DuTTWjJBSONAonLH1TTRnkTN2jAK8Kl9 ZGlOUniL3qqq8EOCOaKEEoCruogu3VHfubH7C4aTsuMBXwVQEyJGPLOQoyFZ8AVDBpIED7XIZkEMGtPJ RZZbMiS33dDR7RJ0Bir76oVnR3PCKyGrLeYZdlNI20 mNmlhuUzrEMxgMvgIF0TQf3+JFkrtbZtMvlLHsgwIWMFOmYqACGFQqMuLLPxALCpFDHnBmM1DpWgYc8G ZSIvARMvVJOpWuNkOWJzILObWZwgHNQwSWVsTyWyKSCnVLJjHD4SLeJaUBBjZBS1JFFcZFZwIFEadw4R KVEhFEZnZJY0UiZdZKCfFULtFCvjISHrMTBeNnqcHB LjNIKnON2BByVdXMQwUSU8CvSfXWVtKDXfoh0SVMXwEIHlKpQyWeUmAPCyYQNgPVenIPPdKLW0CVO4PO XuHGDvFD9EWkLtEREiNYWhZBHxRESyJVWqmz2SGULpKDYcNlH4BTGcQVFoGEUoHAbvVZByXGI0DHo6DS XwKMBhOF7TRnPnQUZmWNK0GKEbLKLjJQGjrv1TUDIb EVZoZAsyFaJaQSXzRBUsYJwjVXRiEPZ4APFnMLEcUGBoNX8XFxQmEPFePqX8VICtVEBkPFUofk6CYLQq RLFdRpo4MXNmXFRvCOMnHNywHMXjDPF7XFXuAHRjLHOxVG1GPeNlHUQxYrO6NNAcRJQeIVWina4EZOFt ORNoGWQ8QxAuWEVkCYUfEBwmMDJpLKM8FTcmJTEnRZ RpBP4GRhFcZSQuAbDkZXXoSGAuHJPsjm8YCDDmPQNvTfNqODCjCLVqMHFyEUxkXCIyUVO8BhP8PGJzYB ZaHE0NTqFsQQKtBjq8AVJkGDPpTVMyxo9GQMVpNDXiIGT5YHOfWDOsEZEeYDlyPHGpTEB7MFV0SAYhEC XqJS0ZTkYbPJZwJyi3FMRvQJCdWPHgpi3BWODqGCOu FOxoVTRaCIAlEOZcFMvxHXOdXMR3DAZoNVPqDVRhBT2FTaDhVBTwAjHyUFVpKKZjZKWjcl7MIJOpJVR3 OQQ6SLXnCQXbTUEyYTyxWCZyRHWpHnf0LGBaBQAfKG2CZzXbATXeVEHhAOWbSHTvULUotz7RISFyIAR5 SlO4VVIyFMMxJUQpTMacZABjTIVnNvdnHPWyJRJbUC 3IVtTrJKIxEIUePgJiXHHiZOUaog2TUIOrBYJ3TjNsOtGsPRUuUBUjPAdgIVXtZRTsJnXiPBDwQHOhIX 1SUrUcQLVcBBKhDNZuDWUlLTWozi4IZXGiSXP6WHWlJVNfGNKtPSBfHWouLPSxKFQ1Wcw2UXWpAJTdGP 6IExIiRIHsHMK0WJPgBZIoUQXqfu6HgPYluEmutj6S GLxPWb6FmXgoYBExBXdyKx8dyXK8DtCaTIKVGn1MynTtLQJvIZHTUHgtVVRgZKUfGcJyTmZ3AtU9Rpdm McIzSAHlGosiWawyJWJ0LUgcYfQ8WYHyBjN3Wuv2KCY9B2UeLmJoZtO9U0MiMZNgHQdcKiT+CM6hNMo+ Bj2Du8IimnJ8ktApETb5KsZ1NN4HQHHUP7HFGz== ID Date Data Source [id number] 10/24/2019 12:03:[address] [facility] Name Value Range Interpretation Code Description Data Mellissa rce(s) Supporting Document(s) [facility] PTMVAu9iNnRKIwYdg0PkHuEjVRCuHY5sxeq2U1P6fFZqL8JemKQas2vuX6KyM3HcNTTeEICBJX1KpDTi jb2 [file] Q7PN0YzCAyZcwA6PEpGLQ+kD+BLAYNE+gRUU8OziqgQLT y07FPd0lMFlde/lyyrvowq95sCc5xGhLukM13j+31a2xFuFxR1jivAOZPKOcHT/fGVTdZlcMj32QUDst ttcHPJOkUprhRMsTxR7tPjMrOddUFQNNjH/k3QR0lrYqvy8DHUwqxgKg7NIPIYrNFQHC5RI/roDeHELu RORzlgrKQhY3K4byCcCuw1w/Yrmq7oPT6gR/B8woki lPV+AAEHvHIgxlDrgSOVmScJRsuAqczi51zf9pYP7zrgZZljiUlUtOXMHyL1BMR2NEFTfUAEqWLjUxjc QfU6pfBr078tDiA06zwlU+y1Y3KOS5VtttEbiPlstW+IlofKU45Mox4RmgRDdrRGTqSAIjt7DZCA29mf sAemkqbgZWwBKQAqFJjWMTuqaoTD6I8RTao6C5rx1m 1MFjqtu5oQ+6bX6DHkRKGMDXR0q3wNVs08bTmb4cBKe2T3I1t5u37Hx/S+r/7Lhej8nms/mhGPnw2JuF 2zjspx2FAYml8n1Dyt/uhR4ih1/7dm068kSm1s/Z6p/6Fop2nq6+f9/yEstVU/991u+3f9af3p4/X0Tz 1OWP8T+2+WY41527v/a6vo+u/+KMpjn5/+OKt+fvpZ Vefa/c+6/mrzfT7ix1psihxda6k+NfvPC/9e532/0lkzV3z+v1m85rM/SmvfXulfZbVvp/Svktq/1w33 P58naFqz/o+832vcn/u+[employer]/l15JsA91vjKu1cEKRAb7drUkqdl5NfnUJMx/5Qlycx7dzqmXKOtt+8pYt m7Hc3eg/dNS/5KPqb1d9jm3pd/3qhn2Vk5O4+/rKVd Y4R3ITUR80Lw9+a779r/uCUDwbC90W44jo8O4lH78fxq8if0jgIc9z517WIy+vt7x+GaPCxy5s2/+25V 3KIt/m4df0nnumcX7+N2I0v7I/1h5ra5aseC/s+56RV9fl2wO792ZOY6esMflA80t65r92nLNuqC5xph mkapo26mHm7B/7rc7Tw91I7+vA/cDz+Y6vnq/eOuy5 4/85pmVD2/v9ioO1geo27sgvK+S9c2904Utl/XbYc1/XHobGb+w6fe4zQrx3oMkm0fJeY2evpGdx/nrt nBq3Nptd6D2FyT/R73sc/k5EzjJ7ha57E926Q3wfzTsj20u2/mF8cCq29/Zzxu3/zWyP5m6kA0h03/rq Rlkmv9yLN1O8Kl6i/M6O+wPPY/zOifon+rPno+Xr9p 8rFsm9PzjfwGuzZi/k6gSrnL/l2+4qV2+wXQbb6n8YHr7yUi0SRhzoiv17R3ij3Y7D/yf6P9F/yevrr/ 357qpr49bk6s/OHb/XuH/b489pyd166cpb1Tkkx4Vwa7be/V63+9jCb9g3hlOdsx8u0ht559Sz9Cjz9Z dih134F/fXvR/JbhPdh9557tf/IsA5s6aC7c3VD0fw 310kbOrt0CJn+5ydIW6/jCUD9Wi9xfo8/hCGPuz6Za/91c4Nt//cqeHf/kz0E/LGglx3/c7S1bwyy8XU r4MklL35E4Oj39Qlgq/Xxld+kybsol5r2d2+i3Rhj1fR+/02PdPwfN/1qM6O+jdKRs1RkAxcmN8xqJ/1 e2ahiahhumDVs8vw+1ly8trApK8io+B+sM9ZNlLmxs y+ym0EI93YdXyD9qpymrBgnCA+v/P+Tvj+W1+q/5/2EohzetZU36jm0/HEQpJG8aie/KlUlg5icYj8/4 K2ahnbz+lzLp6neyYvtOS7HR03Wi7N/hvclr9ww7a2YCdvzMd0CVP9dueyufU9vk9alx/ewcJ/ld7d2/ pmd/+tU/XM5/126XPjq+5U9c/61sf8U7sr7DO/Suzu +km+qsk237fafH90qjd75s0N23RxWlI/v1/ketP0hxm9jO3D9rfp2azj3K39GpgFSwwbzM0/eOK8v692 +Od+1wu53/VC7nf+ckHOik0tXw91/c0588mjl0xmjtl+8ljb+Mp92/kof72D33VA66hhn/yxSK616s3Y fa0HVf+6/Rkp4fo+PyLhGs/WBt6JReRbcxa9rnnSt/ AT7LK3on4ozSzzm+Durn4Rj8E4Ffg1adW+auOr7/W9v/SW0sq7A/fj2s/AB11h54cwUa98X66iiYp8yP b11Jhjt6Xzow/j/vH2lboj+ju2y35JujiJz/xYc06kHxb7x+vrLa+yfAoBkezHnNhT82KzEv/83sZXM/ n6c18+oCMa58Q9n5v1K/a1jI5lnS8oe0mgvnx25ktX X6Zmsjc/h79jh597/b0O3A/yw440jYsuFg5//mkOA6Xol++3CF/5mYbnG+73dOvsqH/g+YHnJ+5PtLu+ dr5TrM/3zypz8962roocrzl+5euM+xn3C+4X3L/z0U6s/l433G+433G/o5/XP++U6u/7oa1B0Xs0GFwb 5M13/V6u1iuF+3c+KsJX/YaOsy7A6ODiD+7j/Wa8X+ CrkvF+ha9kS/mO35Lv+C3CV+bp0oexM0zLYpb0fA4LezrsJCK+KsJX6k+VeLUvQsiwDg111R+op6P+jn Kpw7I7QuQMgOil459qft8yv0R7DV71M9qisv6nruI+fwjjz65p+dH3+vropNdml4AlvUIYe8m3s4dGYy xfhy2OBE/v8P3nYcNiyGmr5/btSF6ZqVxmbhxbIA1Y tBVyvF01B1/Tdml2uAThB6yS8w9G0PCtyhyiXTRvg24KevM9Rr9sfu3b2uS9chx/De+88p61bS+G99vg n/ahz5mzs+lDgntu218Wx+3zd+cqaws6vbmo5zIN8dmd/MYAu8706yq2+9BR//aPw9U2Ysd+G2/fyc7f 65XuM+y03gVxr9Bskyb9Fx7/i95pXZHFsgcMn2TT3m fXnhG/KsJXSuoVvlJe+QdfjeR6+l6PqGz/rFP8/PjcH77+6T8ml05czWdv/bH032j0Fx3RqeY5eqzy1A J4Dg9sdj4xWtnz+SNvl+boY0GI0mHU9cy/2tg8VsJkxb9Pv063wn6C1JJu7Q2a7q5MNqXv5MrwrUkdo7 Y+h3f2K033a+aw8fmyzfgr3o0k/q2tugtd+v1MXy4s J8jXfu/yo92y0Aebw+/2fJvuT1xC2EAuW+5n3C+4X3C/4n7F/XbtU/hKOgS+SbBAVroeOP5C7pyf5/7C /gApA8M9OceL5K5xMqp1qoE4Ep1H+Vy1qrBo081W/Yw8ObI75J3LrrT/4P7A/ye0VdLw/XtD6An61vw6 Rt9wL1oKe9w1618cXh/GrYo1PtG9Ak5S6C+o/86/Ne 73C0CziI7BjsFh+bzJK6BzQ84gtNOZy1XLT/XGt5x7rZ07Tpdyud8G/bserIhfVeGrpfs3/io1P1uSUs 0PKtFL+4NYWqx1/lxzw/Mv5oq1yLH+YFJbe/719Y0/V+0Pxjfz+Fv/jbdX7Q/btoBjb6ZFjqaR9+/8W8 kIC2yw9uejuzxq7l4C/Bm5gXm93W+o/+IRBrsrD3mR qHvhELg6cq0VKryVQ9hhMQX/4zaHodUXeDwfN5yv0wvmvrN7jWQLx54E561bGH/vgEXe3pI66PYQLw1E G1+t91GSWu6c/Z1PfK+/eLIqfqWyil+3rq1zUGxX06ad/CJ+RPsGIXSwgzlc5k7p9AgbWwDMBdQfpaIY 607ec7H/C+2vB0wy8irMyqggPQ+FqJ3xmoqwEF+HvB 6lbbnikeo6Dk/5mY7+DYOm4L0F6hB5L2xL+x2QV/hKfRO+Up/HXR/QLYzLUT0F2fjgbdmwabW+eTS0C3 sGm7IcB72IuQ+kSEhrlmPje3H+Eae3oOtc9oeI+ErX2h+cghu809Id/cFz/nCAaw552lxl/n7V/qCysG f5fg+zk3Uv1tr0OvELavew3luak3YskQ2B6o+xP1ix V6mxL5mqpT/YneHSZfdJmJLuGa5qhj0Jna+r10abQTYx5A0dmYf75cey3DK2Ig6+r+/4h909RmkF2dbQ 2vP3K1bhT+5+Zx3SwdIQflldSc1yu8k4MST5vyTrxk2G3M+4X1FP/kpEGzY8upov1gofhdKnbjezEfhH SllKd7+mgL4kLmH5vcuSrn9/Ax5fvOYWElF5mhehw9 3Vuz+E+1dJvd5/6Sx6X2go9eGnE8e5F/02JD699djIUe14s+v/yKeg0BYph37J+n2Y9nxnot7E1dKdah Xt+r1x7uqYMLw/gTqG3M5fpcTWXa1mU5p1V+r47eflxS30iZ+9dgKvv/Xa+ye4TVKg1ttpA1o9rgjeLA /83BS/ox6w84m07GiA554vrompYX0poe+eo9fikP5n f+H+nlo1owC9gdf7oDa+pt6glbx02+c5XT3e8VqaJ/XeHQRshnK4ql4me8ez+Zkbb2/zqyyD7rgeY7al 7tFNAkgZ62cq5vzpC9IvzhRyGzx+3lcSV04j+JIgeXmJXoTavsVLGs8fs2O+mnCN+xah28vllS7qNGE+ 8jXGr/CVn5+oZ6L/C/5YiC2y16e321HZym6zjfkyz7 19Jlg2iwDUs8yBF00hyU9XC6k5O75kdJdaGu6U96eskhZm+0tcnmjG4+/+OHiRDeebI9Iw9/fa9GrmvD 9Xv8gYrje+mc3kP6j/jWS0gerlu4ha5V0Lc/FScadiDal95DDWF+f6jpd+949ax/tBjwiq9u+0gfeL/c P68ifver5/guTHj0a9008itc+gjJj48X0Y6Vm7a83q X+l8sMrgzFnr4AGN1Rb3L7nJ6S3yvz+qq1bC9U/rp8kph5+lPg7CtD+DdW66p9x6G52i4ZoA/k8mz0Z6 O+9+aJsYvxPyzrv/24SvpFvhK+xc4r7EytHh9k1loKE4vJT9Gj4cqzjxeSXSJ7+4Nf5peO/+WfjKaa/9 2ueCPQtfndTYa//UN43rhUs3XD/Fzwe96Cdy4dyxt+ pmi1p3UrVmI91GBccbkkqc0ydaftl4f/t+e+q437/399SouyN2Pzbori9N2g95kQ97aE27yf65JJ5b+a qUsi1m7qlu88442B9uIcA9E92WiZZ/R+aXZ4LXltnsGj8akm21Iitn5rcLIha86/q35zv/2vc6It4765 j+zr893/3fni9+5hi60f07NEh9rv3biRFf0Rxh2Xiy /r2k7GIY5xe431u/5XUMI9mr7whF7W38Fexkgk99jmvtr17p+YYDer3el5s+3/pLwf2C+xX3K+433G+4 328/J65oL3duA38+rnH/tcl6Lvh8TlEIybytoGTw1An/5xXrb3t4Y/zBICsPCgK8gnYrj1x/qp69/pUN 1/pdX+sJAa3Qaqwu1btHwdo8hC+S1Fb/ft/AiW9fIb rJs775rn6i2ohRIh1ira7aoIcjZI/oRi5c3ohrVb705NGRkl6nkJESjn4HjgpSD2wOh/4osm2uolSgZh 9nWnoXZ40S5/oyaM3i73qKwn/f6uvb/70osEmYaGRs08o0O/f3+x3qw36/g75y81sev7nQfnjkK56rwE 9k3bpiICb987Ebf7/8zO3ynkeeKeip7ntu88f/5XWd A/VP3J+8y9Sg1hk4cEiBg/Alejandro/YsT/IcE7PmM0dzRWKB51NF2+6Jcdgvkk0fR6KlqMj/+7jr pN61XI500B/x/SAncR0F2uIN+WjCPwtfyVYnxu+6aESMl0/f5/3erM+5Oua5gb7few83/B472Coxt3Yg oY8TisyQ5p/cn+iLDU6c37M1+F41J72JFd/f120q26 [file] rNmSnZquuf3QmFafxdYtly/CY65qcBxyNO+OiF3b2QWTXb3g9d6d4rFBd+q9ppQG9z026hsaKNU64+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 [file] POxh+/Cg27iO4Dmtvp4adT3ziienS4G907VS1XC c53h2q/NEVV7O5A02y8MlCnk8HjY/09FCUbzz+iOb5NDbafJgJZun7ekjE8K6hvN+1P13XU1zeaz4ZqT j8xpHam7f2gZP/JdJgVWipTt9j5pSupB6Y26e307z3aUJUqbh6RDj/uNLn4PSsN0soLDx8UcO0s2JaeD Vy3oiSxD0812v/ib4FenbUnihhpPxuvZ1s7cdV3u5d P2K6o6wG3tRO+/gqNa5a6wEa/IWpD2/wlr4Pb/C2gw9v+WJkIzew27Qs21t8vLE9SFPmXwqPkzLEQ2Ee CxGzV3454LdcB113IDCPrb079rKRjBrwnteZy9qX7fbrlvTqgaLnY9/cNTd0oFfzLI/ecKn+8PrDGw+P 6ueRK9h3jQI1fa5zBgmD0pO6dUn29cSmb3tNqqa40s Dqw6N/yQ/ezQ/saME1yeC/wVVGA4s/MR/thZkl2yUd7uex1llr7at/v0G6eBjk7wUO5hZKz8eYaPl1Dw foJT/09cE69fQzgWwvGQvGXij5kPrrOY/7zk33UU+6yJlvonRl3tVL1ahBtpfgIZQZQhpow87W22sUN+ fpXDgfZSYo+fCGW+8TF5K27V19BqGvg626J5hpeA/5 ZCqZiocXDy+zzooMDR/fMZqhd05rF58fmKjsk7z+eSV09FovOnGFdyk+PBvvrnOUw+Yt8+bDm0+59dTJ HYThly5pi26qr7xnMsaxbG+5/URfN7vjoEv9qaMVVVJS97bxVneKL5797+IDgilnPdwQB6j2+/CGr2X1 Ykj2Jub0FCspjIa+2Et/7KU/7sUlhwe22KiRP/2Zj/ rjX/rjX/rjX/zqhfroplxkbx2amaeW7+1cT+cH7+rVLc5s0YyZnSDfUwRzmlXuX+/xL+PQo1k3Lj02iH ghY73L4/G74/C33jBYAp8yXu64UaiGj83Kt15w28hbb3g29PU39anrT07UK449Lsh3tmu0mwCvO1A3mi [file] 1pbWAldm7a2wpb876zUPs4oW3fvQc5289jfM9q0sR9 zeLpgbO/2JUY+dZVB487pTbghjh4kwc3kZWhPYhvyT+V15wpwL87RTETBMY1tJREPenSvp5rm1CgRQgK yeKBM6UCvlRVWLkg9G4InjWVQJqn0S3VwpJnnawp340wVMpTO6PQ1YljZehKrbB+jJ2Blg38FaNAKPwn C3U8tbRZinJ28xrUXdnP5O1OrVziJpHUJTW1oXgeIl U1vzQ1NkNWAnGj80p9uPivIjiVIrmYz5sFrSaslIbDrhhgtvpfdlJwEjqAI+CZY8IAcAAaFBGPDfaTvm 0ycclkK9OIpDHPJAtQfyCaeTFtSQHHAETedcw88m5KeTnBMOJ1R8QJpZg37i4Txt3288bohMVaqNL/pB n/Hk6cwFCQOXeJfE+9jvN5Ex9CAT1F729jvxYf20+6 Jrdi46AZJotGRggEkVRZTIJJxEt8jAVOPACVWTOEObiFHcf491xyH6IQC2jXKWPWeOWuTOzFYcdpHRT0 a8zCl63aEuSYjb2mdSRtpd8MZ52aWEH85pnVlaapAMjWWoOkAyRLSaBiAw0s0T6hg1RceZsKtny4gnYx euRkrEYdJh3vedLEOlJglT4G99UBnXRPp6TzlMCErs IJlbBy0TnKeMhP3SHYAbn+XWtDN2flxLjN3AO+YTsB8JStZL5SgwcIrmdwpRTbpVACdoQExeUZLRfz9q o1BP4g4N3Gi7LvGne2pliiFFGMsRhWKdOb0mq3yN3LLyuNxdUwzT7dupYNYQc8r8wqP0er+9UjPmp75l 7TSDELSR8TpuSE91EE3QvKOD+DJl7rWYBQX/QZEXR6 SesfGLYK4NtyaxwLoJPiBK7JAvLUMKaC5leKgv7oK7o6LAf7LMCwtSazld9gMgOghqkv2Y97AP+pzXY4 Bridgette/Y1v1Q3k3+KHknA6VkfFha6kRW3oBEHJ2e7+5z1dPTnH1soBlvdCdCsVX9OSUhxUSFl+XaPVy7ri mbk8WzknxZsCl8RWYGx1o1bheBAwOb4q1jiE4fLKVf 23ce2+r2nW/J1wCIK5JusuWkhnt0L3byhhkzqHAOeRMohW1bnCF0p7U5GOMQZN+5yirBVR2lWO+Ynlii 37vHaQwmxo7GPKisWfwhiYX88mcA+5l0YP+N71Y4cj0Dk+52SDI88XxaXGR3PPn6kYQLXbzHXY+ojE9U xifqpEz0+LZmbpGut5bhXjgq8QnKLPMWQVEybVG5b1 TQKiZaTqaRkFteKimyo0H0u3KZTtqicrkr5zBpfEB+aKcAaC1zc+IbnKmHDqPJZT5d3z0Zm2swGinlXs ZdnBsX+tO1pdD28xwTvjJF/b0wsC1wNw5Xe+Y/YR1TzHw9wd3UMUK2MLV0AoTxsP7QgC14A2uRfBmL7C TaY4CzkLbJMtLvhnnvUrt8bmyZdOYOQ6Z+NNGd+97F 26BXINu7JIUD0HiwTr68JSKDFGQh7uO+0HpeTtZ5QWgBt35tK0jSFd5tyYSAL3zSUVEJLFCxHv//5G9/ +UE4OMLE9DW/vOk286DXl/r44f/++FzXp7nLoW7ZvRH//Pz9D7/89q8//vvnT99+htjW7eHW+/qrL8pj bY+Cc6oFm+vOrh53v//9x52c9QqS/UUpX/IF894la7 P53//623/6+PWvvv/h0w+fP37x+auvv/l8bqzro/36N5+/+/7rH/7pp5+/+3Fom6278yRj1M4//cPX33 7++P1nW559/cu8i9102jR93tyX2InqKTRIXe4F1i8+9tfff/zw6cuf/8YBw4261lnP/0Q8ijJ5aWiOW8 7++bt//Pr7zx/f/eZ3F630wY6p8/+L0+vpxJ9//vbj y1/+8nfabyw44or/ub6Go91arDwc513l3detjw3ei3/S9pswheA75p0ntfR5Hj21+8uP77/++2+//rtX B5a3j5yYV//07d9//vjHT99//N0vf/3tV//FLx/x4Jvpn0/+07/+4S9//P2/fPyP//Pxm6+/+znGy257 /vTNX3/84qu//bdw22adl/7m45//W13//Fcff/7Tx/ xZXT+qm4Lke6H+0Prxq1/7ia29rJFM49A//OPP/r3T0xquLWaH/aEzwDof0w42Pc///sEq8SBS/Tflby BAV1fNJca220Quhx0j3adLy0+zB3fbmR93BeYw2lqjZwKmedC++/2//n1nw0Cd++Xc47W1l/+vT99+9f m7j28+/dLm46dSuW+/y67+2+rD8wuuuh4q5z97QPC/ +3pHrt1szpxkVw/1t/H7m9//6T/+5uMvv/0D9386/5oHPzwrznPSH//4a69i4ZEI/bj1A/7qu48//Ok/ fv+X/+e3//FlNO250t02K/VJbMqPWz/YP3z3/ce//O/Xvf/hz3/6cfOWU+5HzXsTF/dBE893Pz/8ju97 NxUrVY5kphK+dP74mLnuaqL6/+jmLyZKzAZp/q7++K 6N9rtvwaeQZj7++//+/t//8/kz33jGO/3067//1RHq3wBOtlQ/85d//udcmG2bn3/9/o+//qc0P5tr4Y 9/+79/99t//8Nv//KmCv0t0/6Cn392+/tR6fq3//Rgg3e42hq///kHJ0bv5RvfgQh44g+/+5ULPtSg44 UFHvyH3//uf/4mX7144s8EM+dkI468zxDu4VJ//T9e Y+5fvvj+l3+Kef8aCH9ogPQm/fZ//h9kjrb2Ey/eJhIrPHW/9Y+Pz6+v/aR8wz7civ1oxk3sJliiN012 +rBfQB+3pxfh1fMcdt6qFcO61dMzLyp4GR1g6u5a2d9a8XzmnrQkhSSuTA5HAS1se3NeAsO2BJEdh0Fv SPazKYg0uKBuEUzagwOvc0JvxvzcG8Wdz0YkLuBdMH VeJxWcIiq1TEZmZgJ9aDWlDvNmYSWhZ5DsUANnYtG0ZnItIZIBCK8RXNIhdvYwRnXpCHJ+LnYeSK3wya fuKIAoe3StSIywPZeiHRVgS3P2uSvrCJGmQ1YzmV70IQCkM2UxjlH6WOB2IOMlYnRwAGHhoGIsXDVuFK I+ZeShOU4riyckGWWza3ApYDfjVIC7qS0hFFdUADQX EYwHVBwuQbW9l15fkqVYLSGsTZLoIP3PjtHxeHrhfsQbyLNsDVT4KqMkPWE7YYdzPgUfNVCHTTWjBDUh OIUuSSVpM7UalCwyZYtCJABQBZhEVKzoNwXka0L6XNFsrrPAFADBE27iPDfQKD6BFFF7TMj1LzBcCX0O fJZuAAB2TZaIKDAQNXiFAQyrDbGae5D7AQYmT6FwNC TwbdSlQQWROXnfHnpvCY1rhMduttzlG2OmaBUjVBAMZYCyUTOhVKXlVGFzO2Lhw8D9W9IwIAgJWYDYEN aBVRxiDlY6g12nmrNQRDLeLUXuRC0+ZK2nk6EfUl1YBWViGC5axvj0SX6VsXWpIG3QHUbobuPdL6ygrq RiLaZzJPSGRW5jY6KrsU35QGD+FuKxEV1yyjt0cbZs XuPoZCDoNCIdMPBeXJenDITgESWaNRErBRS0KAD3HQGeJrKwHMIaGpF3FFViGMZcVBMapgUUJBIdHUS6 CQBrZtGjELRqLAIrSPszPVGcYFetNPv8EXGnXNQzZP3eUeZvAJIrDAFuFPGpOjG6BfRwDvXNBFMcSPLw AKHeXgAuENWeOSFpMSlhFFEfAXRsKHg5FUIkAPGsIS 6rYeEbDFSzHHCjCYWzZGSfJLPectRYMIYzDYHyACD9BJPlVBWgFZUhDIuxPNUrUWBvBQW1AKGsFGVuGK 7hUmAhWLPsDPK4HrAfBRWpDDYiaoIDMFSrEVOaPAJ3EMMrFKWcVCEtQSrhYLXhGVAbFeQ4WZAfTYKoQU 2nYjOnAGHdRAY1KFSlNEPbJVEjhlSUZKToWTWvYBx0 VeAwJNFiYGDeFMtrCCUlVPMtLKqyAGKpLIIyLN6sXlAhZSFsGUQuVULcDIWzVEBvmvQMVECkHDAkCDC9 MnLtHACgUMQwEYrxYYTuIYHoMXX6ZROcUNSpZJ2rMkWwHZHaGvFlOSilCAQcPGHcdxBVVXFeYJQrDCNg QGOsDYOmXEWqCPsrUGDnEFSmZoU2MYGyHIQnOW8gMf ZwZKQzNRF3RASnQCXaJTFgorBRFRPiOPNqMHScRIQ8VDSzNORzCIk5zdVaoPLeRen6Ns6WmGebFYA6Ya 2QwpZjIPApWLTOTu3Vf665ZZIuAHLBZzg+MvelqFDgmZeaTJUHQkN4MXtITRXVZ4L= ID Date Data Source [id number] 10/24/2019 01:35:25 PM EDT [facility] Service Cmnt XXX-Imp : NoneMicroorganism XXX Cult : Polymerase chain reaction assay was NEGATIVE for both methicillin-resistant Staphylococcus aureus (MRSA) and methicillin-susceptible Staphylococcus aureus (MSSA) Name Value Range Interpretation Code Description Data Mellissa rce(s) Supporting Document(s) ID Date Data Source [id number] 10/24/2019 07:01:06 AM EDT [facility] CT THORAX WITHOUT CONTRAST [id number] RE SULTInterpreted by:CIERRA GarcíaROCEDURE INFORMATION: Exam: CT Chest Without Contrast Exam date and time: 10/24/2019 6:03 AM Age: 48 years old Clinical indication: Acute and chronic respiratory failure with hypoxia; Other: Evaluate for ild; Check for infiltrate; Hypoxic TECHNIQUE: Imaging protocol: Computed tomography of the chest without contrast. 3D rendering: MIP and/or 3D reconstructed images were created by the technologist. Radiation optimization: All CT scans at this facility use at least one of these dose optimization techniques: automated exposure control; mA and/or kV adjustment per patient size (includes targeted exams where dose is matched to clinical indication); or iterative reconstruction. COMPARISON: CT THORAX WITHOUT CONTRAST [id number] 05/15/2019 1:49 PM FINDINGS: Lungs: There are extensive consolidative groundglass opacities throughout both upper lobes and in the right middle lobe, increased since the prior examination which could repres ent pneumonia, inflammation, edema, or hemorrhage. Moderate centrilobular emphysematous changes are present bilaterally. Pleural space: Unremarkable. No pneumothorax. No pleural effusion. Heart: Unremarkable. No cardiomegaly. No pericardial effusion. Mediastinal space: A small hiatal hernia is present. Aorta: Unremarkable. No aortic aneurysm. Lymph nodes: Unremarkable. No enlarged lymph nodes. Gallbladder and bile ducts: There has been a cholecystectomy. Bones/joints: Unremarkable. No acute fracture. Soft tissues: Unremarkable. IMPRESSION: There are extensive consolidative groundglass opacities throughout both upper lobes and in the right middle lobe, increased since the prior examination. THIS DOCUMENT HAS BEEN ELECTRONICALLY SIGNED BY GALLO BRUNO MDThis document has been electronically signed by Gallo Bruno MD on 10/24/2019 7:01 AM Name Value Range Interpretation Code Description Data Mellissa rce(s) Supporting Document(s) ID Date Data Source [id number] 10/24/2019 04:15:28 AM [facility] Name Value Range Interpretation Code Description [facility](s) Leukocytes [#/volume] in Blood by Automated count 19.9 10*3/uL 4-[address] [facility] Erythrocytes [#/volume] in Blood by Automated count 4.15 10*6/uL 4.1- 5.3 [facility] Hemoglobin [Mass/volume] in Blood 11.4 g/dL 11.5-15.5 [facility] Hematocrit [Volume Fraction] of Blood by Automated count 34.4 % 3 6-[address] [facility] Erythrocyte mean corpuscular volume [Entitic volume] by Auto mated count 82.9 fL 80-96 [facility] Erythrocyte mean corpuscular hemoglobin [Entitic mass] by Automated count 27.4 pg 27-33 [facility] Erythrocyte mean corpuscular hemoglobin concentration [Mass/volume] by Automated count 33.1 g/dL 32.0-36.0 [facility] width [Ratio] by Automated count 15.4 % 11.5-14.[address] [facility] Platelets [#/volume] in Blood by Automated count 275 10*3/uL 150-400 [facility] Differential cell count method - Blood [facility] Neutrophils/100 leukocytes in Blood by Automated count 94 % [facility] Lymphocytes/100 leukocytes in Blood by Automated count 4 % [facility] Monocytes/100 leukocytes in Blood by Automated count 2 % [facility] Eosinophils/100 leukocytes in Blood by Automated count 0 % [facility] Basophils/100 leukocytes in Blood by Automated count 0 % [facility] Neutrophils [#/volume] in Blood by Automated count 18.48 10*3/uL 1.8- 7.[address] [facility] Lymphocytes [#/volume] in Blood by Automated count 0.86 10*3/uL 1.2-[address] [facility] Monocytes [#/volume] in Blood by Automated count 0.47 10*3/uL 0-0.8 [facility] Eosinophils [#/volume] in Blood by Automated count 0.01 10*3/uL 0-0.5 [facility] Basophils [#/volume] in Blood by Automated count 0.08 10*3/uL 0-0.2 [facility] Nucleated erythrocytes/100 leukocytes [Ratio] in Blood by Automated count 0 /100{WBCs} 0-0 [facility] ID Date Data Source [id number] 10/24/2019 04:49:32 AM EDT [facility] Name Value Range Interpretation Code Description Data Mellissa rce(s) Supporting Document(s) Bicarbonate [Moles/volume] in Serum 25 mmol/L 22-29 [facility] Chloride [Moles/volume] in Serum or Plasma 98 mmol/L 98-107 [facility] Creatinine [Mass/volume] in Serum or Plasma 0.57 mg/dL 0.50-0.90 [facility] Glucose [Mass/volume] in Serum or Plasma 153 mg/dL 70-[address] [facility] Potassium [Moles/volume] in Serum or Plasma 3.7 mmol/L 3.4-5.1 [facility] Sodium [Moles/volume] in Serum or Plasma 134 mmol/L 136-[address] [facility] Urea nitrogen [Mass/volume] in Serum or Plasma 7 mg/dL 6-20 [facility] Anion gap 3 in Serum or Plasma 11 mmol/L 8-15 [facility] Osmolality of Serum or Plasma by calculation 279 mosm/kg 275-300 [facility] Creatinine/Urea nitrogen [Mass Ratio] in Serum or Plasma 12 [facility] Calcium [Mass/volume] in Serum or Plasma 8.2 mg/dL 8.6-10.[address] [facility] Glomerular filtration rate/1.73 sq M pre dicted among non-blacks [Volume Rate/Area] in Serum or Plasma by Creatinine-based formula (MDRD) >[address] [facility] Glomerular filtration rate/1.73 sq M pre dicted among blacks [Volume Rate/Area] in Serum or Plasma by Creatinine-based formula (MDRD) >60 [facility] ID Date Data Source [id number] 10/24/2019 04:49:32 AM [facility] Name Value Range Interpretation Code Description Data Mellissa rce(s) Supporting Document(s) Magnesium [Mass/volume] in Serum or Plasma 2.4 mg/dL 1.6-2.6 [facility] ID Date Data Source [id number] 10/24/2019 04:49:32 AM [facility] Value Range Interpretation Code Description Data Mellissa rce(s) Supporting Document(s) Phosphate [Mass/volume] in Serum or Plasma 3.4 mg/dL 2.5-4.5 [facility] ID Date Data Source [id number] 10/24/2019 04:49:32 AM [facility] Value Range Interpretation Code Description Data Mellissa rce(s) Supporting Document(s) Troponin T.cardiac [Mass/volume] in Serum or Plasma <0.01 [facility] ID Date Data Source [id number] 10/24/2019 04:49:32 AM [facility] Value Range Interpretation Code Description Data Mellissa rce(s) Supporting Document(s) Thyrotropin [Units/volume] in Serum or Plasma 0.656 u[IU]/mL 0.270-4. 200 [facility] ID Date Data Source [id number] 10/24/2019 12:22:55 PM [facility] Value Range Interpretation Code Description Data Mellissa rce(s) Supporting Document(s) Procalcitonin [Mass/volume] in Serum or Plasma 1.06 ng/mL <0.[address] [facility] (NOTE) < 0.25 ng/mL Bacterial infec tion unlikely,particularly lower respiratory tract infections.0.25 -<0.50 ng/mL Low risk for progression to severe sepsis/septic shock. Localized infection is possible. Measurement done early (<6 hours) after systemic process starts may still be low.0.50 - 2.00 ng/mL Moderate risk for progression to sepsis/septic shock. > 2.00 ng/mL High risk for progression to sepsis/septic shock. ID Date Data Source [id number] 10/24/2019 04:38:42 AM [facility] Value Range Interpretation Code Description Data Mellissa rce(s) Supporting Document(s) Lactate [Moles/volume] in Serum or Plasma 1.8 mmol/l 0.5-2.2 [facility] ID Date Data Source [id number] 10/24/2019 04:12:52 AM [facility] Name Value Range Interpretation Code Description Data Mellissa rce(s) Supporting Document(s) Calcium.ionized [Moles/volume] in Arterial blood 1.08 mmol/L 1.13-1.[address] [facility] ID Date Data Source [id number] 10/23/2019 11:28:46 PM [facility] Name Value Range Interpretation Code Description Data Mellissa rce(s) Supporting Document(s) Glucose [Mass/volume] in Capillary blood by Glucometer 152 mg/dL 70- [address] [facility] ID Date Data Source [id number] 10/23/2019 10:30:47 PM [facility] Name Value Range Interpretation Code Description Data Mellissa rce(s) Supporting Document(s) pH of Arterial blood 7.44 7.38-7.44 [facility] Carbon dioxide [Partial pressure] in Arterial blood 34 mm[Hg] 35-[address] [facility] Oxygen [Partial pressure] in Arterial blood 158 mmHg 95-[address] [facility] Oxygen saturation in Arterial blood 99 % 94-100 [facility] Base excess in Arterial blood by calculation [facility] Carbon dioxide, total [Moles/volume] in Arterial blood 24 mmol/L [facility] Oxygen/Inspired gas setting [Volume Fraction] Ventilator 0.50 [facility] ID Date Data Source [id number] 10/23/2019 08:24:14 PM [facility] XR CHEST FRONTAL ONLY [id number] RESULTI nterpreted by:Stevo Mendiola, MDPROCEDURE INFORMATION: Exam: XR Chest, 1 View Exam date and time: 10/23/2019 8:10 PM Age: 48 years old Clinical indication: Other: Dyspnea TECHNIQUE: Imaging protocol: XR of the chest Views: 1 view. COMPARISON: CR XR CHEST FRONTAL ONLY [id number] PORTABLE 06/03/2019 4:37 PM FINDINGS: Limitations: Image quality is degraded by motion artifact. Tubes, catheters and devices: A neural stimulator generator overlies and partially obscures the left lung apex. Lungs: Ill-defined opacities are noted in the right mid and lower lung. No consolidation. Pulmonary vasculature is congested. Low lung volumes. Pleural space: No obvious pleural effusion or pneumothorax. Heart/Mediastinum: Cardiac size and mediastinal contours are normal. Bones/joints: Unremarkable for patient's age. IMPRESSION: 1. Ill-defined opacities are noted in the right mid and lower lung which could represent atelectasis, alveolar edema, or infection. 2. Neural stimulator device in place. THIS DOCUMENT HAS BEEN ELECTRONICALLY SIGNED BY STEVO MENDIOLA MDThis document has been electronically signed by Stevo Mendiola MD on 10/23/2019 8:24 PM Name Value Range Interpretation Code Description Data Mellissa rce(s) Supporting Document(s) ID Date Data Source [id number] 10/23/2019 10:05:43 PM [facility] Name Value Range Interpretation Code Description Data Mellissa rce(s) Supporting Document(s) Fibrin D-dimer FEU [Mass/volume] in Platelet poor plas ma by Immunoassay 0.88 ug/mL{FEU} <0.[address] [facility] ID Date Data Source [id number] 10/28/2019 08:40:[address] [facility] Cmnt XXX-Imp : Specimen source n ot given.Microorganism XXX Cult : No growth 5 days Name Value Range Interpretation Code Description Data Mellissa rce(s) Supporting Document(s) ID Date Data Source [id number] 10/28/2019 08:40:[address] [facility] Cmnt XXX-Imp : Specimen source n ot given.Microorganism XXX Cult : No growth 5 days Name Value Range Interpretation Code Description Data Mellissa rce(s) Supporting Document(s) ID Date Data Source [id number] 10/23/2019 10:19:[address] [facility] Cmnt XXX-Imp : NoneMicroorganism XXX Cult : 2019 nCoV Real-Time RT-PCR: NOT DETECTEDTest performed using the [employer] Xpert Xpress SARS-CoV-2 assay. This test is only for use under the Food and Drug Administration's Emergency Use Authorization. Additional information is available on the following FDA websites for health care providers and patients. https://www.fda.gov/media/332383/download , https://www.fda.gov/media/493881/download Name Value Range Interpretation Code Description Data Mellissa rce(s) Supporting Document(s) ID Date Data Source [id number] 10/23/2019 08:11:00 PM [facility] Service Cmnt XXX-Imp : NoneMicroorganism XXX Cult : 2019 nCoV Real-Time RT-PCR: NOT DETECTEDTest performed using the [employer] Xpert Xpress SARS-CoV-2 assay. This test is only for use under the Food and Drug Administration's Emergency Use Authorization. Additional information is available on the following FDA websites for health care providers and patients. https://www.fda.gov/media/626079/download , https://www.fda.gov/media/860611/download Name Value Range Interpretation Code Description Data Mellissa rce(s) Supporting Document(s) Microorganism identified in Unspecified specimen by [facility] This lab was ordered by [facility] and reported by [facility]. ID Date Data Source [id number] 10/23/2019 08:47:50 PM [facility] Name Value Range Interpretation Code Description Data Mellissa rce(s) Supporting Document(s) Natriuretic peptide.B prohormone N-Terminal [Mass/volu me] in Serum or Plasma 252 pg/mL <[address] [facility] ID Date Data Source [id number] 10/23/2019 08:47:50 PM [facility] Name Value Range Interpretation Code Description Data Mellissa rce(s) Supporting Document(s) Bicarbonate [Moles/volume] in Serum 24 mmol/L 22-29 [facility] Chloride [Moles/volume] in Serum or Plasma 97 mmol/L 98-[address] [facility] Creatinine [Mass/volume] in Serum or Plasma 0.79 mg/dL 0.50-0.90 [facility] Glucose [Mass/volume] in Serum or Plasma 113 mg/dL 70-140 [facility] Potassium [Moles/volume] in Serum or Plasma 4.4 mmol/L 3.4-5.1 [facility] Hemolyzed Sodium [Moles/volume] in Serum or Plasma 133 mmol/L 136-[address] [facility] Urea nitrogen [Mass/volume] in Serum or Plasma 9 mg/dL 6-20 [facility] Anion gap 3 in Serum or Plasma 12 mmol/L 8-15 [facility] Osmolality of Serum or Plasma by calculation 275 mosm/kg 275-300 [facility] Creatinine/Urea nitrogen [Mass Ratio] in Serum or Plasma 11 [facility] Calcium [Mass/volume] in Serum or Plasma 8.9 mg/dL 8.6-10.0 [facility] Glomerular filtration rate/1.73 sq M pre dicted among non-blacks [Volume Rate/Area] in Serum or Plasma by Creatinine-based formula (MDRD) >[address] [facility] Glomerular filtration rate/1.73 sq M pre dicted among blacks [Volume Rate/Area] in Serum or Plasma by Creatinine-based formula (MDRD) >60 [facility] ID Date Data Source [id number] 10/23/2019 09:19:[address] [facility] Name Value Range Interpretation Code Description Data Mellissa rce(s) Supporting Document(s) Leukocytes [#/volume] in Blood by Automated count 21.1 10*3/uL 4-[address] [facility] Erythrocytes [#/volume] in Blood by Automated count 4.34 10*6/uL 4.1- 5.3 [facility] Hemoglobin [Mass/volume] in Blood 11.7 g/dL 11.5-15.5 [facility] Hematocrit [Volume Fraction] of Blood by Automated count 36.2 % 3 6-45 [facility] Erythrocyte mean corpuscular volume [Entitic volume] by Auto mated count 83.5 fL 80-96 [facility] Erythrocyte mean corpuscular hemoglobin [Entitic mass] by Automated count 27.0 pg 27-33 [facility] Erythrocyte mean corpuscular hemoglobin concentration [Mass/volume] by Automated count 32.3 g/dL 32.0-36.0 [facility] E[facility]throcyte distribution width [Ratio] by Automated count 15.6 % 11.5-14.[address] [facility] Platelets [#/volume] in Blood by Automated count 329 10*3/uL 150-400 [facility] Confirmed Differential cell count method - Blood [facility] Neutrophils/100 leukocytes in Blood by Automated count 80 % [facility] Lymphocytes/100 leukocytes in Blood by Automated count 12 % [facility] Monocytes/100 leukocytes in Blood by Automated count 6 % [facility] Eosinophils/100 leukocytes in Blood by Automated count 1 % [facility] Basophils/100 leukocytes in Blood by Automated count 1 % [facility] Neutrophils [#/volume] in Blood by Automated count 17.05 10*3/uL 1.8- 7.[address] [facility] Lymphocytes [#/volume] in Blood by Automated count 2.43 10*3/uL 1.2-[address] [facility] Monocytes [#/volume] in Blood by Automated count 1.22 10*3/uL 0-0.[address] [facility] Eosinophils [#/volume] in Blood by Automated count 0.18 10*3/uL 0-0.5 [facility] Basophils [#/volume] in Blood by Automated count 0.16 10*3/uL 0-0.2 [facility] Nucleated erythrocytes/100 leukocytes [Ratio] in Blood by Automated count 0 /100{WBCs} 0-0 [facility] ID Date Data Source [id number] 10/23/2019 08:13:10 PM [facility] Name Value Range Interpretation Code Description Data Mellissa rce(s) Supporting Document(s) Sodium [Moles/volume] in Blood 131 mmol/L 136-[address] [facility] Potassium [Moles/volume] in Blood 4.5 mmol/L 3.4-5.1 [facility] Chloride [Moles/volume] in Blood 97 mmol/L 98-[address] [facility] Carbon dioxide, total [Moles/volume] in Blood 24 mmol/L 22-29 [facility] Calcium.ionized [Moles/volume] in Blood 1.02 mmol/L 1.13-1.[address] [facility] Glucose [Mass/volume] in Blood 111 mg/dL 70-140 [facility] Urea nitrogen [Mass/volume] in Blood 10 mg/dL 6-20 [facility] Creatinine [Mass/volume] in Blood 0.7 mg/dL 0.50-0.90 [facility] Hematocrit [Volume Fraction] of Blood 38 % 36-45 [facility] Hemoglobin [Mass/volume] in Blood by calculation 12.9 g/dL 11.5-15.5 [facility] ID Date Data Source [id number] 10/23/2019 08:13:10 PM [facility] Name Value Range Interpretation Code Description Data Mellissa rce(s) Supporting Document(s) pH of Arterial blood 7.53 7.38-7.44 [facility] Carbon dioxide [Partial pressure] in Arterial blood 30 mmHg 35-[address] [facility] Oxygen [Partial pressure] in Arterial blood 60 mmHg 95-[address] [facility] Base excess standard in Arterial blood by calculation 3 mmol/L [facility] Oxygen saturation Calculated from oxygen partial press ure in Arterial blood 94 % 94-100 [facility] Lactate [Moles/volume] in Arterial blood 2.1 mmol/L 0.5-2.2 [facility] Bicarbonate [Moles/volume] in Arterial blood 26 mmol/L [facility] ID Date Data Source [id number] 10/23/2019 08:16:15 PM EDT [facility] Name Value Range Interpretation Code Description Data Mellissa rce(s) Supporting Document(s) Troponin I.cardiac [Mass/volume] in Blood 0.00 ng/mL 0.00-0.08 [facility] ID Date Data Source [id number] 09/24/2019 09:03:58 AM EDT [facility] Name Value Range Interpretation Code Description Data Mellissa rce(s) Supporting Document(s) Progress Note [facility] RZQBOy8wDmQQFdTn02/KQHpoPBRmf1RfBWmjPYt0SLcyUCRjQ0CyZDG1sU0xXWA1HTxALwPhWlYfXtK3 lbm [file] EgJGmcVbPqBj6OTAIIF1UINt== ID Date Data Source [id number] 08/13/2019 11:24:[address] 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 9SifF4k5r/UZCVWZAmNhCB9VaytTn+1x++bOj06dgYDJWdH4dFq2oNxdmSYXBvu52ZYJOQpMXJI9W1It /0cvJ9OpVC0F59bn7MKJolTjVSKpG1M4gXfcJfeJ93 vK6VF1fgxTtEyhyI2waE5eJECG7zh9xforqc8bVr6XB8ZJYDNG9q3n3ZoA9SatPS5QG5RaxDAgEGt9oi tDehW7Av8yAz7+MESe0Ed/LukTFgXWUqT5SS81vE6HQjzfhmbp8D6LKUzPfa2FUai7jhljrPeNTG0v+V OYx8uQQ1hXazl7qz/t3XfNSEa13iwM2idoZectA4QV ONf1icWGpqU+UCkYdvp0HHZe4cAVxrwdIX//Ijz3dx/0d2mD8qEDxzGX0mUEhETbY0Do31sFV6AlT2tM FXozqcUIDw0fXnPksm9ab4dP5c2XCie6mHXRr3sAQ1yJishHvcDaVgKjky6n+Flxi06X4bZfWhG7Dvoe yWI8OJeGypv/f/KmH/lf8GF7b08010XeMAialIxMC0 YDv4k5mVqULVUOBLsWiuliuPuEI2A/SyaiG0v4J2W7D8YD2GuQzyUvGdyXPlqKnm263Nio8i08JgUF56 GSSq368e1NdDk9OytuLbiOkTfFcl4GX6O0kQprUQxKI/coVjB7hdUVKGGQJyTs7kd6AEmgiXl6GJwoo9 pxa2NOKMDVTFyAxR6WbsJ+JZgEFn2KhgvH9BK9D67q kZ5Kz99+R8+/ekKBM3yAcyevoX+w1fkokDI6V595u9dEkno1xhdGcWPGpB55T6ZY5+v6+e2iQJXU9npC nHTu7gBIu8B1eoKXo09VWHqwIr0flYhC0FdpsFqgXxowkG5vVvgjujY7sUSMI2Ci/1eXztvSzmcniLQV fPAWb+a5ZUMWnFPLlDH3Oqddm972tFNpi/MnRcBC6+ 6PLLTFPnJCh5SEISpU//Danielito/YG+jhhZEICbjSX/vLU5qnsXqExBLoGTEA/VoINTNSLva1Mjl2BOu0JXBS [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] 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+/pohjdlM8wdpQC6VrGNIV1LoHmeMpEEK725+eMNiS0JBLkQZN/EwXrm288IAr9MyGVgBl309kZro +APkN9IkDtAjIYWJVl+kF/2RuH8hrJMJ7CafFn8RqJRO0m19WCEF3jCCdxSAm85wV+oGQUxT4QdxcZNs hRjjRFGEyaVikHrdmoNLa7LTbds2voBRnsyPYVN0Xw 5X+mFnWqDhld9d7QhfpmXSI9oxYVbgDJ3hI7yOR6N8XxXRGO+BQbd/XH/NK/6XaKd+wKNjAXu/G5vDHB t9B7b7naK9IjY9QHhnqUL7eZeObODhXKJSUs0VjcrZURsylCGIPTltnv/PFH38VMjp8Xf2RiM1r7oEH+ KchcLM/parenCVbtsfzuZI97KL83hT/ylkJXw61M7p 23SwH2RFJMOOYBBZED3EGEpYIdaEz7n9Vg/HyljHCejavh/0itjaZuKTQrAn7ljJND0V5lDVqCcUU3px T+d3Y0Xfj089LBWKqshZJNvs+HRiqegvjVFXDEAIa/fznNBTuOxsJIPGnrw8u/9xlktXb8PPrqWQpbAB j6akHU2MZlgEdmBKKpMhDyihTfwd4OKBJJdsnroCNH LzYCSUyjYY60qk+BoUVPDCg1ZdIpA083W39A5l24eNYL7a7uK6J+BlmS7zBEM64xx+UPaqnvHFTlxewC XXH423EjEiePWSl9scGKzTxB4FdvJ68oc8GQfE2epgphdeSTIoNRBp+fuZoRLJaaHYbe3OCv9HMMnhbD 1dZEUBFG4sc1pY+NzLvr+RlVRufitWGnFYULNUYZdt FERNANDO+ZNcuMUsIxHv8F/Gl/Cu/LKtXzvIjyDUxrI/R0dxjHfj6LeL9+R18F0rm+hYxz0niwQ0xVgp6CmS1 [file] FdKyLNwI+qEasMFXxLKUlEoyPN4/[place]/igy+9b7ecR [file] AgICAgICAgICAgICAgICAgICAgICAgICAgICAgICAgICAgICAgICAgICAgICAgICAgICAgICAgICAgIC PbAQFtLDIdQUWxWIFzFNZeAAYkBLUmVT4JTZYwMMCh ICAgICAgICAgICAgICAgICAgICAgICAgICAgICAgICAgICAgICAgICAgICAgICAgICAgICAgICAgICAg FRXgBAVaWAAoIUUiVNUkNOQfHSYnGCVrYHXwAQXnLEHdFS0MJHLxXNRdHHEsSFMdLTTtILEuWQWqVIWd ICAgICAgICAgICAgICAgICAgICAgICAgICAgICAgIC JtYVVjFEVoSWGwRZOrXXPbLVTiNFOzVAOzUSOtDBQhNXOcZZYbZTCtIVNuRU6KJQNzSSXjRUTfSLFeAF AgICAgICAgICAgICAgICAgICAgICAgICAgICAgICAgICAgICAgICAgICAgICAgICAgICAgICAgICAgIC FkITCqPPVqVAYrAHZmJKXhDCZxPEAmEWWfVZ2MPERl ICAgICAgICAgICAgICAgICAgICAgICAgICAgICAgICAgICAgICAgICAgICAgICAgICAgICAgICAgICAg DZNjLJJqTSQwEUDkYPRuYMZgCIBaHJNqRKQgIRMfRVMhHRPfCG8FALSdYNInDGZtNAPqFPZnEMEjOGDb ICAgICAgICAgICAgICAgICAgICAgICAgICAgICAgIC NkCVIzMAGjAINvIIXvUYTaITHyMOAnKWMlCYByUIYtIBCwVVKtZVUyFGMbURKsIA1TPUBdDABpFQCuGJ AgICAgICAgICAgICAgICAgICAgICAgICAgICAgICAgICAgICAgICAgICAgICAgICAgICAgICAgICAgIC HsOKKkBUXkYDXhSSMpEZZwERXpQPSaLURvRUKgIZ9L ICAgICAgICAgICAgICAgICAgICAgICAgICAgICAgICAgICAgICAgICAgICAgICAgICAgICAgICAgICAg CSBcNIJnVAUhZHUtNGUpZXOsNNEvLJAwVMTiEIPqBBSaPDUxEWHdEF4QDDBsMWGzGZLsIREeEZZrPLGa ICAgICAgICAgICAgICAgICAgICAgICAgICAgICAgIC SyQCFxPFGgZCNpBFFeWKBiLBTzPYBoNFIdOUMrXQThUNXtAOMaAASoZWIyNPOwDTHdWJ0LRSBoKLHbGY AgICAgICAgICAgICAgICAgICAgICAgICAgICAgICAgICAgICAgICAgICAgICAgICAgICAgICAgICAgIC AgICAgICAgICAgICAgICAgICAgICAgICAgICAgICAg XT4LRY70uMVam3J2CPGiOO7zsga/Vn5GHLllpjMjlYKwYB2ZEaIoFR1ivn2LHbVyAS2dao5XYRpJOzIy G1Y3bIFqICEpDJVQYmBjP51uKSwzEi82CQxiYFBxWeYtMUc2Ju4SDyQoO2xyLOCfWvO1MNYrHvT4AKFx AiW1NTJiMqZuTJHiZHYyDB8ZSJIdM668hbRnBZ9KVb 3JEmYhTC4nrp5KZfreRKPnMnsKOhq2FItoJR6EnCZnY3TqaDYew9hOFaXnM5UXOGM3AXSpJq2TRTDsSx CvCPPoCTqgNJ0zIDChTAIUjIsaniB5UL5OAQ0zlcAbAH7BUvZsGk3zBu4SFkVbL1ZoD8OaBXRnJQECEL hfIL8YGVQyEFR3AJHfTaSrVLYNKfTsX90fUS3LC8Bn m56yVdK0GISpRqAvUYmpOR74zVggxsObmQJoyYcgPE9TYj8+DQplbmRvYmoNCnhyZWYNCjAgMzkNCjAw KIWqOHNbIUKlHgA9UoDqTc4RWQNmOYCxYCYwGgAwKOReGNJqZEpgAAJdPMV5CAC6NHCxGKSvPE6XPyCy GVDdNnB2TmgsCCTrFDLrjz5EMLZbDNPyYYV8BRYfFJ LuZZPvVEmyPRHxFJWlMiadBOHaXBHqWG4USxGmVZUeBXX3WwJfTSDnFAZbqa7MMJWvDUMjAtNiWjOtIU HnORFyDCijVIVcIUJ4HfXjAIEcUKTfCM6HQiWmGIZfRVu0EcuiXULxHMDdgd3JTBDeUULuYDcqMGAgAR UjNPSoKGouQYVwPLU9Jzg7EYPnYKNgBO8EIpNpARLu ZGg0KWMxBEEfNUMkul3KIIIsLOLjLMx2VpTcZFYvEJNzIYheBUKnNZEwRXRkJFWiNELcBO8UJgEaULOg MIKpWJZmOZWfPSBczq5DJODuWAUrIjNhVpFgNHZnSSDpUMleEHQiWDTxJLO2MBLnCXBvJE8BHxEsZJRu ZDG7SWMsXVWpNTLgoj8SGPUkWTGuFrM0AEGnAHElAC JlZVdjBGPnSXCzMvSeCYBuHJJgZP7BJxVlJZHbIMW6SzBvNNBtLXEcgp4BJCZsTAGbHMJuDLKuDBLuSU KdBHjtOYUzOOKpDcV1IWGfASWbAV8DMoKzHAEgOpK1EoJcMLIzXVStqn7TGVVhIIWxZLMjALGpTVWnAS BoXBlhQFLySLDxYBX4XHWwXJJjEW0KNtCgGTBtUdR9 WJllBAOlZHJsay6UXNAuTNR4WnM8QIEtVWDrBEBwHYvzIMAjUVvhAoS2WXUtBHNlTG4UPmEuHLXcPVH8 LVJjBBFsMSDlpm8PNPCwCLRlWPW7ASMsRLAjNHRjZRtaEQNeZWK8DBdpQSKfXGJqIZ4HYvArWZGsIeFi MZsuDZOvZYPsgh9AQQIhOMR0DyJ9SFTjQOJqUSTjNF kaJRCtBZS1SQK3WBRcAYAuMQ8CDfRzPYInWan3QsgtGCXjHTZejp7YWRLuPZN9DRW1TwPxYOMvQZDtKF irKLPtEGddXMR5VBRhHIIrOE9KWqBuGPhpLJRZYol3NUiuZ6y4ZLRoLF9XK6Mdu5ZrQlkkRNQCDNyjMB 2dujFtNXBkGa8EG6fVNox3YZQvAlVnUFoqZIRkWkCt SDWcKBOxJsP0MEZ4OGMaCj4nEMtxA7JbZGQdOZA3XzIgVDJ6BFU8KxVtFCPoCuv3FGZ0FtItWH6LMi8U FgN6KRT2lPIeTf0OSOnoUyDdHYhvFNUUKo7H ID Date Data Source [id number] 07/13/2019 05:06:[address] [facility] Name Value Range Interpretation Code Description Data Mellissa rce(s) Supporting Document(s) &PDF [facility] FJURNx9bVfXLBmAt81/FCWikUCVga4WxBBouOWt9CGfoBSOsA1VycCvqPOuYF0RHVwqXNHPUCHAHJH3n G [file] AgICAgICAgICAgICAgICAgICAgICAgICAgICAgICAgICAgICAgICAgICAgICAgICAgICAgICAgICAgIC AgICAgICAgICAgICAgICAgICAgICAgICAgICAgICANCiAgICAgICAgICAgICAgICAgICAgICAgICAgIC AgICAgICAgICAgICAgICAgICAgICAgICAgICAgICAg ICAgICAgICAgICAgICAgICAgICAgICAgICAgICAgICAgICAgICAgICANCiAgICAgICAgICAgICAgICAg ICAgICAgICAgICAgICAgICAgICAgICAgICAgICAgICAgICAgICAgICAgICAgICAgICAgICAgICAgICAg ICAgICAgICAgICAgICAgICAgICAgICANCiAgICAgIC AgICAgICAgICAgICAgICAgICAgICAgICAgICAgICAgICAgICAgICAgICAgICAgICAgICAgICAgICAgIC AgICAgICAgICAgICAgICAgICAgICAgICAgICAgICAgICANCiAgICAgICAgICAgICAgICAgICAgICAgIC AgICAgICAgICAgICAgICAgICAgICAgICAgICAgICAg ICAgICAgICAgICAgICAgICAgICAgICAgICAgICAgICAgICAgICAgICAgICANCiAgICAgICAgICAgICAg ICAgICAgICAgICAgICAgICAgICAgICAgICAgICAgICAgICAgICAgICAgICAgICAgICAgICAgICAgICAg ICAgICAgICAgICAgICAgICAgICAgICAgICANCiAgIC AgICAgICAgICAgICAgICAgICAgICAgICAgICAgICAgICAgICAgICAgICAgICAgICAgICAgICAgICAgIC AgICAgICAgICAgICAgICAgICAgICAgICAgICAgICAgICAgICANCiAgICAgICAgICAgICAgICAgICAgIC AgICAgICAgICAgICAgICAgICAgICAgICAgICAgICAg ICAgICAgICAgICAgICAgICAgICAgICAgICAgICAgICAgICAgICAgICAgICAgICANCiAgICAgICAgICAg ICAgICAgICAgICAgICAgICAgICAgICAgICAgICAgICAgICAgICAgICAgICAgICAgICAgICAgICAgICAg ICAgICAgICAgICAgICAgICAgICAgICAgICAgICANCi AgICAgICAgICAgICAgICAgICAgICAgICAgICAgICAgICAgICAgICAgICAgICAgICAgICAgICAgICAgIC AgICAgICAgICAgICAgICAgICAgICAgICAgICAgICAgICAgICAgICANCjw/zRUiZ9rkfHBffwM3O9xzRk 8JIk0CPN5su9BsGGOfCHfhheVoUpxZWzPfZHOqAtwA Wgl7RKnlCU6TqXCrX4MyD6YzFCphDY4YZRNqKVNztSKeKSCsSHKlSwT8JRGsEXjyRD4SjNRiKTxkJRTk KKLmUzYgLVEfLG4EYCIiW713eeZhOc3WUq1LOqFcMB5qjs3VBxBnERDeTdiGMvr8UYpxFG7GuUEjV2Ws oFCck4rQArKfX1ZJWPW4YBDhUb4QLCTzTnQiDDTbAZ skPO4pWLPgBTCIcSemepC0ZJ4KFF6rhnLbAG3ZOyXtRl2uHd4MUxVoE6EtS5GbYXKfRPVPCRcoDG5IOL BnTUH1IQBuDUSsUYXFZkQhJ35jHS6GD4Mih48gTsO4OPBoPrUiBLbwJA53ePwwcxNmgLTtcRfcUX8ORz 4+DQplbmRvYmoNCnhyZWYNCjAgMjINCjAwMDAwMDAw ZMCpHcY8OzBcXq3OEUTnPBOuDJLoLsLhBBWpFZOiEWxuHYYwINT9EoNtDXLfTSTyZO5TLcYcACPjVCo4 IBSdLVRhQICkss1KVHBtASVjAER0RWShIQTvPVCiJXmjNXQsFSSfAmr0GPWjAVBwOB0RVbZaFSQdDHM0 PBPrUBXjNGFrky4CWYXyZHAtAVH0BdSdTGHdWHKgLG zqRJUxGAL0RWxaHYYnKWSdNJ0YGkIwJAYfPLC9FkmlOCHaKDXhbh1PWDSsRWToQrClJXMfEQMoPGDoNH gzCCNuHZK6HXT9TUOpQRWeCL1XWjXnXOJbUMs1MdXhQERxMAQkdh5RFWKbFJMxHbf9RwNwXTBbBDFdPK ruXPSfCWY3ANU8KQFrSZUyBF2SAwAmRXPpILdmZaAp QZUrAEPeno9RMRNkFRAmOZHsPWVyDPHzUMGrVBvdYMXwIHX4ZNL8TNQmYRLtDM2LBoYoZHSmDJJjBAEa RRPtQIFldv8BKJCkLNTlEXMvRAEmVEJoOVGaSUdxUCDpFNF4GkPpSLIhQJTwEM9POtSrPYVoQqGlFBCy QMPpEYUfrl3QwXFngAntca2NCYtRFu6RtFowLVBcLA feHu2pqLXrJLKeKWVSKh2QwjHvJYEuGQTOLRjgTMOwWLL2IKUnCMlvPIT9IQReHMF9LED6JzXzYRK9VA onDDFrHvG3RevrUNG9CYXkIGSiGON6JVSyICKeYUU5YAH3TgNqQmD+CB2iIVg+Ha7Yb5WmmaZ3frFjZU tqYDK6ZM1TZIOWU6FELl== ID Date Data Source [id number] 06/29/2019 07:17:00 PM EDT [facility] FASTING: UNKNOWNReceived: 06/27/2019 at 07:07:00 [facility], [address], [address] [place], [address], Giorgio Lozano MD Received: 06/27/2019 at 07:07:00 AMD : [facility], [address], [place], [address], Florian Oseguera M.D.,PhD Name Value Range Interpretation Code Description Data Mellissa rce(s) Supporting Document(s) Glucose [Mass/volume] in Serum or Plasma 118 mg/dL 65-99 Above high normal [facility] Fasting reference intervalFor someone without known diabetes, a glucose valuebetween 100 and 125 mg/dL is consistent withprediabetes and should be confirmed with afollow-up test. Urea nitrogen [Mass/volume] in Serum or Plasma 5 mg/dL 7-25 Below low normal [facility] Creatinine [Mass/volume] in Serum or Plasma 0.54 mg/dL 0.50 -1.05 Normal (applies to non-numeric results) [facility] For patients >49 years of age, the refer ence limitfor Creatinine is approximately 13% higher for peopleidentified as -[place]. Glomerular filtration rate/1.73 sq M.pre dicted [Volume Rate/Area] in Serum, Plasma or Blood by Creatinine-based formula (MDRD) 110 mL/min/1.73m2 > OR = 60 Normal (applies to non-numeric results) [facility] Glomerular filtration rate/1.73 sq M pre dicted among blacks [Volume Rate/Area] in Serum or Plasma by Creatinine-based formula (MDRD) 128 mL/min/1.73m2 > OR = 60 Normal (applies to non-numeric results) [facility] Urea nitrogen/Creatinine [Mass Ratio] in Serum or Plasma 9 (calc ) 6-22 Normal (applies to non-numeric results) [facility] Sodium [Moles/volume] in Serum or Plasma 133 mmol/L 135-146 Below low normal [facility] Potassium [Moles/volume] in Serum or Plasma 4.1 mmol/L 3.5- 5.3 Normal (applies to non-numeric results) [facility] Chloride [Moles/volume] in Serum or Plasma 94 mmol/L 98-110 Belo w low normal [facility] Carbon dioxide, total [Moles/volume] in Serum or Plasma 28 mmol/ L 20-32 Normal (applies to non-numeric results) [facility] Calcium [Mass/volume] in Serum or Plasma 9.3 mg/dL 8.6-10. 4 Normal (applies to non-numeric results) [facility] ID Date Data Source [id number] 06/29/2019 07:17:00 PM EDT [facility] FASTING: UNKNOWNReceived: 06/27/2019 at 07:07:00 QPT: [facility], [address] [facility], [address] [place], [address], Giorgio Lozano MD Received: 06/27/2019 at 07:07:00 AMD : [facility], [address], [place], [address], Florian Oseguera M.D.,PhD Name Value Range Interpretation Code Description Data Mellissa rce(s) Supporting Document(s) Natriuretic peptide.B prohormone N-Terminal [Mass/volu me] in Serum or Plasma 170 pg/mL [facility] For Heart Failure (HF) diagnosis, refere nce ranges inpatients with dyspnea are based on Chel MCCURDY, Et al.Am [facility] Cardiol. 2018;71:7838-9009.18-49 years:<= 300 pg/mL Normal, HF unlikely>= 450 pg/mL High probability of HF50-75 years:<= 300 pg/mL Normal, HF unlikely>= 900 pg/mL High probability of HF>75 years:<= 300 pg/mL Normal, HF unlikely>= 1800 pg/mL High probability of HFFor patients with coronary heart disease, the optimalrisk category cut points for incident HF or CVD (<253 pg/mL men, <372 pg/mL women) are based onFidelia T, et al. J Am [facility] Cardiol. 2007:50:205-14.For patients with existing HF, the optimal riskcategory cut point for HF progression (<300 pg/mL) isbased on Michael AGUILAR, et al. Clin Biochem. 2010;43:1405-10.For additional information, please refer tohttp://education.[employer]/faq/NSL257(This link is being provided for informational/educational purposes only.)NO COLLECTION DATE RECEIVED. WE HAVE USEDTHE DATE THE SPECIMEN WAS RECEIVED BY [facility] THE COLLECTION DATE. IF THISIS INCORRECT, PLEASE CONTACT CLIENT SERVICES.PHONE NUMBER: [phone] ID Date Data Source [id number] 06/08/2019 02:17:02 PM [facility] Name Value Range Interpretation Code Description Data Mellissa rce(s) Supporting Document(s) History and Physical [facility] PAILLf8bRhCAYfGs95/YWBbmBKLpu8YwGAtuHWq5ULtwZBKlL0SgKOF6vZ5sEDO2IWnORwDlWlEtFdVd m [file] AgICAgICAgICAgICAgICAgICAgICAgICAgICAgICAg ICAgICAgICAgICAgICAgICAgICAgICAgICAgICAgICAgDQogICAgICAgICAgICAgICAgICAgICAgICAg ICAgICAgICAgICAgICAgICAgICAgICAgICAgICAgICAgICAgICAgICAgICAgICAgICAgICAgICAgICAg ICAgICAgICAgICAgICAgDQogICAgICAgICAgICAgIC AgICAgICAgICAgICAgICAgICAgICAgICAgICAgICAgICAgICAgICAgICAgICAgICAgICAgICAgICAgIC AgICAgICAgICAgICAgICAgICAgICAgICAgDQogICAgICAgICAgICAgICAgICAgICAgICAgICAgICAgIC AgICAgICAgICAgICAgICAgICAgICAgICAgICAgICAg ICAgICAgICAgICAgICAgICAgICAgICAgICAgICAgICAgICAgDQogICAgICAgICAgICAgICAgICAgICAg ICAgICAgICAgICAgICAgICAgICAgICAgICAgICAgICAgICAgICAgICAgICAgICAgICAgICAgICAgICAg ICAgICAgICAgICAgICAgICAgDQogICAgICAgICAgIC AgICAgICAgICAgICAgICAgICAgICAgICAgICAgICAgICAgICAgICAgICAgICAgICAgICAgICAgICAgIC AgICAgICAgICAgICAgICAgICAgICAgICAgICAgDQogICAgICAgICAgICAgICAgICAgICAgICAgICAgIC AgICAgICAgICAgICAgICAgICAgICAgICAgICAgICAg ICAgICAgICAgICAgICAgICAgICAgICAgICAgICAgICAgICAgICAgDQogICAgICAgICAgICAgICAgICAg ICAgICAgICAgICAgICAgICAgICAgICAgICAgICAgICAgICAgICAgICAgICAgICAgICAgICAgICAgICAg ICAgICAgICAgICAgICAgICAgICAgDQogICAgICAgIC AgICAgICAgICAgICAgICAgICAgICAgICAgICAgICAgICAgICAgICAgICAgICAgICAgICAgICAgICAgIC AgICAgICAgICAgICAgICAgICAgICAgICAgICAgICAgDQogICAgICAgICAgICAgICAgICAgICAgICAgIC AgICAgICAgICAgICAgICAgICAgICAgICAgICAgICAg MNTeEHNzQAPtWVJuTUXzGASbJGGfHCJfMCBtWRAmLPQwQXNaVITuIMUcSZj0I6odJEBfCSWwXR3kCJe7 Jz8+XKkTWdDcLVD5reWzwS9RFB4ea3VePUtbJAKqr7EqKAn4SK7KBMPoCQemEI9PWYorbr4AOKEmIAAv dHCAz5fgEhAiVJE4IHGrBevvYT6ALGGvM7xubhFxQF ZsNUCHBHizTJKYXIexVMIJAQRjQRWsSwWuADeoCB9Nk9YuwUH0ZQk+Kv6WLA7pb7CwBGkvAMRvCU3ilj 8TVAoCXrPlO1EyfxR5PUDmGOGgQn4KVWGnJTOqmZXiVdIwFFVOQzBfP8LhjV58XSANGj9+DQplbmRvYm zCTcPoAKFwt7IpTDw5SM4ZVXBcSTq4yXEhVVBJWMC3 XIH0OaCxuRJGOMD8NZnttLafLA6EOoIqHHGhVe2pSn7jOXLaLELjQiC2RORTKH1VDZOoXIKwvOIcVLGc ZDBHGZ5BJEjqYKI1VRZwnvBuhJEfKSowTW7WNRCoalBnLnZaTSKUCTx+Xc5XGT2ze7BnDYstIiXqBX2e tn3GJIyEZpHcJ6J7xMDhD8T6PQgmWw2WOCJmXIKtGn okLBIQXIfeJL6FVB5ukyA8QZ9NnTYoJTPuDLNiuYTnRQn8I73ncCKaTQrdFG1MMYF+Isiah+Yi7BGYLuTD XkEKNcQkLxSKFXYcFfX7BsJ4TXh4GpL6QpXG50gSukfuSsSBbiSV7XQW2pMKUfPTVMQB6CtGWvhI3uqh BzHSHnXXOOYcXmD40plLEsYPLiAIHeFSEhHj9HGASs B4BjzbRgzQcqjdHlOXCzNTTFXA1LUIkkugSweAHzcFtjVN44xXxiVX2GVt6UZxZaCW7ldw4GjHAuEa8A GKFvSV9FKZZzVREpKWTcKFD3TSCfRpQsNUwyMUHzQBCfNTM0TRKdZJWrMK2DYgNnRXFqSvL1UZPqTQUl YFXlym3FBEDrRTNwOwVdFeVsRWKuWDQdKVpqQANbPF HsRBV7XREqVFSzEE2KSyEzVPXwSDWvMGRrXITbWBNzex7NCOVbHABzInD8KbJgFEAiMSOwISvrKNVtTT V4Enp1BBHwUAGiTY3HRfBbGJGeKRE4GLLlIUSsKCXwzf7CNDNpQZYhIIL7VQMnMAFiGUVyVPcmDDNgPD GxFHt9MJQsDQFxNV5PAfVoURBqOUU7CNUmQNKfUCTi pc6OOUCyKNBdFbJ6XRTmEBHtZWIxVWpbCEInCTJ3LES9PNUjAXIkDQ2KJvGcSTLnCSTcIOUlNAQiRDQl gy7TTHQmROEbHTYlVRVgDZBxQDLnEFfyQLYkNYQ5Jht5HJLkMZDxHE3KBbWsOWMxVDT1JEhtIHKlFOWv uq2AFPVzIRBsWKm8OqSqOMCcCALrUKwhMVAdAXR5Rm D0UFIvNRHyAZ3YWpJjFAXqLVH0YCMwHYRbPTNeey1XWURpUEIxPbSkToRdYTDqNKRyBNoiXLAgELG8EU JySWZaMWNlCZ1EKhHiXEAeQmv8LjExUYAcVXDgqf4CMLGmHKAjSKTkQWUlJYKtNLPuYLjaGLBwCNQ4Dn e2OMIvFBVeMV3JBaQhQKLjLvr3WvVhXEWbXPIopm6Z OSAvOVLdVCV3GUAqJFGhZMFrCDoxPZUeQOGsTUU9UVUfBIOhEP8LUrTxOTJxHuE0RfZmJCIzKLAueh7Y RMLxWFHhHOR0AfLzCUDtAKBbAFgpOYSzEBVhSfM3UADaCBEuOK6CGoJpYJHcOzG3VWNtAQKpZJClqc7S VJHpXVKyJvvoMuOiRZNlNIRfNEq9keGlcWZlZDm9EY 1AG9EqrkKkWyZZGk5Ly145FIKkUSFwMs3TE6ozCj3iENZaXQJNMu3CPPa6JER3KKGmIhK0WLswQzM7BQ JlMDYyMjJhYjUxMzkzMjA+BXrhBGB1WPNgMcP9ALWwSWj5GcYaRsJsPfEnTMMeGXPqLW1lPBARJk7+DQ agiUPoyFfcZGGEXuFsDKugCPrbRTUOPw3N ID Date Data Source [id number] 06/03/2019 05:03:[address] [facility] Name Value Range Interpretation Code Description Data Mellissa rce(s) Supporting Document(s) Progress Note [facility] ENADQt7hNhXGMyOw46/SWKbwNTQvb2XsZFrkTLb7TIdbIBAkD5QvKZD3yK8kHGX7LGtMGdSiXyUyMqH3 lbm [file] ICAgICAgICAgICAgICAgICAgICAgICAgICAgICAgICAgICAgICAgICAgICAgICAgICAgICAgICAgICAg ICAgICAgICAgICAgICANCiAgICAgICAgICAgICAgIC AgICAgICAgICAgICAgICAgICAgICAgICAgICAgICAgICAgICAgICAgICAgICAgICAgICAgICAgICAgIC AgICAgICAgICAgICAgICAgICAgICAgICANCiAgICAgICAgICAgICAgICAgICAgICAgICAgICAgICAgIC AgICAgICAgICAgICAgICAgICAgICAgICAgICAgICAg ICAgICAgICAgICAgICAgICAgICAgICAgICAgICAgICAgICANCiAgICAgICAgICAgICAgICAgICAgICAg ICAgICAgICAgICAgICAgICAgICAgICAgICAgICAgICAgICAgICAgICAgICAgICAgICAgICAgICAgICAg ICAgICAgICAgICAgICAgICANCiAgICAgICAgICAgIC AgICAgICAgICAgICAgICAgICAgICAgICAgICAgICAgICAgICAgICAgICAgICAgICAgICAgICAgICAgIC AgICAgICAgICAgICAgICAgICAgICAgICAgICANCiAgICAgICAgICAgICAgICAgICAgICAgICAgICAgIC AgICAgICAgICAgICAgICAgICAgICAgICAgICAgICAg ICAgICAgICAgICAgICAgICAgICAgICAgICAgICAgICAgICAgICANCiAgICAgICAgICAgICAgICAgICAg ICAgICAgICAgICAgICAgICAgICAgICAgICAgICAgICAgICAgICAgICAgICAgICAgICAgICAgICAgICAg ICAgICAgICAgICAgICAgICAgICANCiAgICAgICAgIC AgICAgICAgICAgICAgICAgICAgICAgICAgICAgICAgICAgICAgICAgICAgICAgICAgICAgICAgICAgIC AgICAgICAgICAgICAgICAgICAgICAgICAgICAgICANCiAgICAgICAgICAgICAgICAgICAgICAgICAgIC AgICAgICAgICAgICAgICAgICAgICAgICAgICAgICAg ICAgICAgICAgICAgICAgICAgICAgICAgICAgICAgICAgICAgICAgICANCiAgICAgICAgICAgICAgICAg ICAgICAgICAgICAgICAgICAgICAgICAgICAgICAgICAgICAgICAgICAgICAgICAgICAgICAgICAgICAg ICAgICAgICAgICAgICAgICAgICAgICANCjw/eHBhY2 jmlRDivxA1Z0djKb5EQu1CJN1la9FjEFGwNVmuveLjQwnBXfQjWKTtIgfUSwh9WDjzPJ7TbRZdU6ZpJ1 KhZSwuXB4OAEHpCKQcwNCgZOEmNVItEwS3VRDvHPxfZG6TdBXjKZusAOYiEIFhSX0TNVXrN293jdDmEN 0GPy7LUyLaZJ1gkw6FYLUlJZKjIodKUgp9CLjiSF5P kGLnvGUyXXUqTZANSyQxS8lge6MwEOCkRGNLQJoaJC6Dk9NdtRHjJWe+Pe9UKD2nx5JdEMvpZBOhIW4s no6PRFlATxVaT2IloLqwGKHxs4woOXLiAO2auQHfRXT3FON3ndQccJDxYVXAz3laNwxjIq4eQDItUz0c Xi3lQYPxKBS5UcOyLUTWEW3SXQGqLHHuyPBwEMUdMT ZUSM7EVMepHKS9TGCkyxZunHMiWIrdRC2MWHCcwyShFWGoPVQGDIl+Za7KXF8ui4StFUgrAgHxRC7uhc 0IVVjQHhZxC4E8jAWvN8G7KTzpTn5JSNXhWIYqLKVmOQWTAYfuDF3AVD2ebbF4EI8VpWFhWBQoRSFgzP HtBTc2C15pmPQnFTziPW4BIDS+Isiah+Sg7TGEOhWUJb YIXbDzVcUMYXQwFcQ7MiY4LFh1ZvS5TpQW41wWdaoqDnUNnlDZ0UYZ4bCSVaVDZDJI6TnCYrdF5esiLa XCWyOQLRPwBlR03ghUXrUPXqSTPxZXYgLa7CHWFjP2NghuLehVojkgWdOXDhXHQALX4OJDevuoCgnKYh hWtbFR22wCmhZS1HIr3HIbZpBZ6vcd4JbZOxPs6HJN FiLi3KUSHaVCLlRFSgXCE5ABPeWyZoCBatOJVfHOPfEDB7PPKrIFFfIA4XCwMuGDEpMHO7JtoeJDZdCU Ahci3GDTXuROXyIzY3TeHxFHEfQRFhULunGBFxMYWaSVP8SDYvQKSsNC9KEaTkQXWhZGP7BIiqDYOhCV Lncs6VRLHgACVbCEtkBFRjUQVaOGZhEEncXYWnKWLo GtbpHBTdPQOqYT8FSnGjSMEhPYV9FqDmHBWfZSXuzf3TJMBvYBKgJcC1UoWoCPOfVZSnESrhFLXuYLK1 XCV3IBFmVFQaRE2AIeShCSBzFSRxSSVbQOOpIKTaic3SIARxGOVqBCEbPbLiEXWsSEZsXYmqCHXxBIH9 GIZ1LNJcSROpFT2YLwHqNGFdSHKuSXOtNCVxJWQcha 5ZDXPiBIQcCxScDoSpCBTkYPXmPThfETXnLRS2DJX2JOFhBJKoYT9HJoSqCZtyJVYTYci2HTinO1e8KW CnUs9TI9Ayr6EyWOCqTXDYJXlqQG7eiiNvSZWdCg1WL7tNLbibDiT3ZDQ7NAuaFfR8DkT8MeVwYsxvJf FoVRF9KXG4DL8rOWVaOiQyDUs8ZYZmYsauZON2XqMg WMZ5UtI6UnaxWxKaTaMrDT7ULc5LPtQ3FUX8gDLaVn5WBzzrMM9QJVPTP5PVTp== ID Date Data Source [id number] 06/03/2019 04:59:58 PM [facility] XR CHEST FRONTAL ONLY [id number] RESULTI nterpreted by:Cale Larose MDINDICATION: Follow-up radiography after right heart catheterization.TECHNIQUE: XR CHEST FRONTAL ONLY [id number], 06/03/2019 4:43 PM, 75 degrees upright.COMPARISON: 04/09/2019.FINDINGS: The chest wall and mediastinum are normal in appearance except for the presence of a neural stimulator that projects over the left lung apex. I see no findings of pleural disease. The lungs are examined in expiration; grossly there clear except for an ill-defined opacity located laterally within the right lung base.IMPRESSION: 1. New ill-defined opacity in the right lung base, likely atelectasis, pneumonia or aspiration.2. Otherwise essentially normal examination.This document has been electronically signed by Cale Larose MD on 06/03/2019 4:57 PM Name Value Range Interpretation Code Description Data Mellissa rce(s) Supporting Document(s) ID Date Data Source [id number] 06/03/2019 02:17:39 PM [facility] Name Value Range Interpretation Code Description Data Mellissa rce(s) Supporting Document(s) Hemoglobin [Mass/volume] in Blood 11.7 g/dL 11.5-15.5 [facility] ID Date Data Source [id number] 05/20/2019 02:12:01 PM [facility] Name Value Range Interpretation Code Description Data Mellissa rce(s) Supporting Document(s) Progress Note [facility] KRDUGk7oJaLGXnVd75/SIWcpKLSpa0GrEFdbOKq4EYhlCVXoR5SmKGM7gS1zQAP2OBgVJaRcOyGvAoZy lbm [file] ID Date Data Source [id number] 05/19/2019 11:49:41 AM EST [facility] Name Value Range Interpretation Code Description Data Mellissa rce(s) Supporting Document(s) Progress Note [facility] CMOWEl6pTsLHLqGf33/JGFbmLRYpj1AvEHrhEAi9ICmxNEMaZ2NuTUR6vD7iTDV6YSxWPdUxHdXzPmXs lbm [file] AgICAgICAgICAgICAgICAgICAgICAgICAgICAgICAgICAgICAgICAgICAgICAgICAgICAgICAgICAgIC AgICAgICAgICAgICAgICAgICAgICAgICAgICAgICAg VNXfIO6HLEVeULMxMIRtZTHlICXtCZHwWTBgZJZvVKJzLLBkFFIcKWJsEDShAERzMBVzZOBcJJKvVUIx RCSnLTCqYATvCORoYBVhFRMfCFBaLVTyVPIjKJHhTIYhVDVlWVUnMMBtHKRoMN8PZPTqGCLuYIXgGGDv ICAgICAgICAgICAgICAgICAgICAgICAgICAgICAgIC SqCEOjSDYpMLPgWLFyCLEgBXLdQVSjMGKjVGTuDKErWSZuAASqQOEfAATgDDHhRACuCODyFTTlRL1NBI AgICAgICAgICAgICAgICAgICAgICAgICAgICAgICAgICAgICAgICAgICAgICAgICAgICAgICAgICAgIC AgICAgICAgICAgICAgICAgICAgICAgICAgICAgICAg KJZuHWUySB3QFUNzFZOsXFOiNEUzLNEhLBInIFOgXATfMSWbAKYqDECaZFKiQSZkVQDwPAUoMPLwOTSp QTUgDVKsMLLjRKXoYJVjMELhBUQaHITiDSBsQPHuZFPhZMTfVAZcUVYxSIKlTMGmZG0JQCBzMTUkEPIl ICAgICAgICAgICAgICAgICAgICAgICAgICAgICAgIC AgICAgICAgICAgICAgICAgICAgICAgICAgICAgICAgICAgICAgICAgICAgICAgICAgICAgICAgICAgIA 0KICAgICAgICAgICAgICAgICAgICAgICAgICAgICAgICAgICAgICAgICAgICAgICAgICAgICAgICAgIC AgICAgICAgICAgICAgICAgICAgICAgICAgICAgICAg XRKwVJImSQXgMP0TTAGiAMJiZCZoGZMeHTOoNJArPJTxFDKzTDZwSEUlGYTgAQKxMQNaFUBsNFFnPOZt XYVsCOHqSJMfARJwSAZvRMEkZJStUJWfQIPhXVBrEXIxCIUwMKSzLPRxSMXfIOKoUSXkQH1YYDHcMCXi ICAgICAgICAgICAgICAgICAgICAgICAgICAgICAgIC AgICAgICAgICAgICAgICAgICAgICAgICAgICAgICAgICAgICAgICAgICAgICAgICAgICAgICAgICAgIC NcJI0NOGFjCCZzMVZsVDBcNSZoDFOwOJMeTWJyACIrGVSuADNcULHzERAlJDXwINPlLKDbNRKzQAXbOL AgICAgICAgICAgICAgICAgICAgICAgICAgICAgICAg HAFuOAWpOTAeJNOaAS6DCJ41nVLba7P0HXIxYN4pivu/Yy3UGWcisyYilSUiSW1MNaFnLY2tdb2JDqNq EN7fru6KSKbTPwHhQ6S3oHNsJIEwEXXLUbPoW35zCZjkRr22TUuxIHEbMyToGYv6Un0RJiYkA7hrPXAr TvP1OSJaElP7SNPxPqXlWRfcEU8Zz4PwzMTkORc+Pg 5YQW2kx1UvMGtcYUPsKJ6nsq3AHWvMAoTwH5BkfrN4SRA9TFEfBs7ZIVTbRMGmfZWnBKDtVTJACnYoF8 RthC29LSKOGt5+YVwkqbPvMgyNOqY9YCJwz0BqFQb2UR2GAZOePDz9fWVmNIIxV8Ksu4NbPy41NGDqQw ybWTSrriQJULMtxSNuCJ0DLCC2KMMpXq8gURCeOQJ5 WgAlETDETG2SWEBuWXJcxWLoCNWtNYIZOE8GMPnoFEW2XVNusoOivITgZVnaXL5VNQWksxRfYtExEXGX DQo+Ip9TJH8hq5AvXCcxJrHfVC9btz3XLAiRErSbD4R8vBSsL2K5CDkkDd0OXIPyYOAsAdSgJQPTEEub IT8CPA6cgnH6PH4KbDXjYLVrAANbcZBjQMt4M46iwJ CfTMssIH5YFFM+Isiah+Lo4HXNDfZCXgLOSzFjZtLLFJAfImB0HcJ4QIn0VvK8JuSE73vMwhbuBgZSwjGJ 3WJJ4aHOWhRCRXVS6IdQOdrV7uxzOrVMZdRUNZOlGmR88fqXYfVOWvLLNxEFGwLe3LVEVhI5MmmuXihM xwkcAxCXZvRAIWTJ9OKDfipcMybAQzeNqyTN89yCyb CM3GLg6UYsOvRC9eyy5AgTIyFh9OCMIiMq1CLEEvBLBjAXSwSJX3XVOoLaRsSTkdHHLyMJScOCH0VPQy UFSbWQ3TXdCkLIOnLpO7CrZeCHMeWZVqap3ZVHHuTZIlZKLaEMJyIBIlSBYmFXblCSFkFUIrUAZ0GYXa IFMgQO0EWkVfUKJySFJkRtsqBFKjZYXjvr3WAJDkRI IrXWChGyAlWLXtDOQlOLrlLUDvOEG5Xar1FLZiHVAcXX5SRlBqJAEsIDs9LLXhQKLtLOGauy8EOIPvWM FrWYK3LPYuJWQjNGNmPSbxCNRmIAE9EiF1RNKbBNGtAV8KSeEqIKSeGId0RizdMQQoYTKyfm3OZPXaFC VlUFj0AaDyBFInOELuANgcURWsYIB9RWu0TPAvQSKl CU1OPmKsLKXjKAEeYphnPAQkXXUzcs3ZGIFwBAAwBZWeKoMtFZXiBXVsMHxuIUEdTELaHQX3YBJaIUOo YN0QJwGdQOHoOoHrMEvnSTRcCFCwto8EWHJfFUNmOhU0XlUyMXTpDFOaBWrdPMRjQCUbVLUpOFPiWNFj AY5NNkKkGWPiSwSwQQZiRBPhIBEvbu1XRKIdLYRjPu U8UvOpMLNwFNIwJWakKTEaTBWxXnBsWWYuFAUbKL1FSdWnCZIjMwZzPhmqDCNpMDJuwd6MZPUfIGBgRM GlCuWkRBRxPFLcBGhiNNJqNYL7Eye4UNFaOUIwBP3SGeHhNUXvVjE9NrhkYMWdQHHhqd5TrZXqiVxcxt 4GMLlIXb9DxKzsAAL1ZNkcLr5uwDSfFiGmBFLXXd6Y ysWwYPVcQOOPBSusKQPsDZMaYrB7LKL3LoLpIIVaYtG0KIAfHyShVvtyGzEvJiNrZbY6OnKtDIkrSOp3 PTLkSZY1WRRuXTQ3CXS1CVCdEQFkNJO+YS5cQTn+Wy9Pr7SpdjN4hfPcRFfxBoW2Go5CSVLTM6ZATc== ID Date Data Source [id number] 05/15/2019 02:34:27 PM [facility] CT THORAX WITHOUT CONTRAST [id number] RE SULTInterpreted by:Gerry Moyer, [facility] H[facility]ORY:48-year-old female with increasing dyspnea, who presents for CT follow-up.COMPARISON STUDY:Compared to the prior CT pulmonary angiogram dated 04/06/[address] of the thorax dated 04/27/2019.TECHNIQUE:Contiguous 5 mm thick multislice axial helical images were obtained from the thoracic inlet to the upper abdominal level utilizing automated exposure control. No intravenous contrast was administered, which limits the study with respect of the mediastinal, margaret and vascular structures of the chest.1 mm thick overlapping axial, 8 mm thick axial and coronal MIP and 5 mm thick sagittal and coronal reconstructed images were obtained from the axial data set. DLP: 272 mGy- cm.FINDINGS:LUNGS AND PLEURA: There is stable mild centrilobular emphysematous change of both lungs with stable mild nonspecific biapical pleural thickening and parenchymal scarring.There is decreased mild patchy subsegmental "groun dglass" airspace opacity within the posterior aspects of both upper lobes abutting the major fissures and the posterior superior aspects of both lower lobes and the posterior aspect of the right middle lobe.There is mild increased interstitial density throughout the anterior superior aspects of both upper lobes.The remaining lungs are clear and the basilar interstitial markings are otherwise normal. The trachea and bronchial structures are normal and there is no other evidence of pleural disease.HEART: The heart is normal in size and there is no evidence of coronary calcification or pericardial effusion.ESOPHAGUS: The visualized esophagus is grossly normal.MEDIASTINUM AND MARGARET: There are small pretracheal, precarinal and AP window lymph nodes, which are less than 10 mm in their short axis and there is no gross hilar adenopathy. AORTA AND GREAT VESSELS: The aortic root, ascending thoracic aorta, thoracic aortic arch and descending thoracic aorta are normal in caliber and mildly tortuous. There is no evidence of significant atherosclerotic change or an aneurysm. There is normal branching of the great vessels and the visualized great vessels are grossly normal.MUSCULOSKELETAL: There is stable mild osteopenia throughout the study and mild degenerative change of the thoracic spine. There is a stable 10 degree lower thoracic and thoracolumbar dextroscoliosis.The visualized vertebral bodies, pedicles and posterior lamina are intact and the vertebral body heights are normal. The remainder of the chest wall and bony are unchanged and otherwise normal.EXTRATHORACIC SOFT TISSUES: A stimulator generator is in place within the left para midline upper thorax and grossly stable in position.The visualized muscular and visualized soft tissue structures of the chest wall are grossly normal and there is no evidence of axillary or supraclavicular adenopathy.THYROID GLAND: The visualized thyroid gland is grossly normal.UPPER ABDOMEN: The visualized liver is grossly normal in density relative to the spleen and there are no focal lesions within the visualized liver. The spleen, adrenal glands, visualized kidneys and visualized pancreas are unchanged and grossly normal.The patient is status post cholecystectomy and the visualized common duct measures 16 mm in diameter within the ruthann hepatis.IMPRESSION:1. There is decreased mild patchy nonspecific subsegmental "groundglass" opacities within both upper lobes, both lower lobes and the posterior right middle lobe that may represent resolving pneumonia.2. There is mild increased interstitial density within both upper lobes that may r epresent interstitial edema.3. There is stable mild centrilobular emphysematous change of both lungs.4. There is no evidence of adenopathy.5. The visualized cardiac and mediastinal structures.6. There are additional findings as described above.This document has been electronically signed by Gerry Moyer MD on 05/15/2019 2:32 PM Name Value Range Interpretation Code Description Data Mellissa rce(s) Supporting Document(s) ID Date Data Source [id number] 05/14/2019 09:36:43 AM [facility] Name Value Range Interpretation Code Description Data Mellissa rce(s) Supporting Document(s) Progress Note [facility] ICIRCu1lSpNDUaKr62/PAFjvXQPkc7StVKhnCAx4CWkvQWFcX3UnZVR6yJ4iPGH7OKpLUeHkCiSwIlO3 lbm [file] NXakgDHuiNwcKEGPNrY1MdO2SHvsHFAIMh2N ID Date Data Source [id number] 04/15/2019 11:08:59 AM [facility] Name Value Range Interpretation Code Description Data Mellissa rce(s) Supporting Document(s) Consultation [facility] DAHMRw3aDwEWFtRk64/JCIiaZMIdy0AeQTgcSHk2DTrqZBKxZ2TjPSG8mS9eUDV0ORsPQyZhFmOhWVG9 lbm [file] DESIGN LEAD [file] AgICAgICAgICAgICAgICAgICAgICAgICAgICAgICAgICAgICAgICAgICAgICAgDQogICAgICAgICAgIC AgICAgICAgICAgICAgICAgICAgICAgICAgICAgICAg ICAgICAgICAgICAgICAgICAgICAgICAgICAgICAgICAgICAgICAgICAgICAgICAgICAgICAgICAgDQog ICAgICAgICAgICAgICAgICAgICAgICAgICAgICAgICAgICAgICAgICAgICAgICAgICAgICAgICAgICAg ICAgICAgICAgICAgICAgICAgICAgICAgICAgICAgIC AgICAgICAgDQogICAgICAgICAgICAgICAgICAgICAgICAgICAgICAgICAgICAgICAgICAgICAgICAgIC AgICAgICAgICAgICAgICAgICAgICAgICAgICAgICAgICAgICAgICAgICAgICAgICAgDQogICAgICAgIC AgICAgICAgICAgICAgICAgICAgICAgICAgICAgICAg ICAgICAgICAgICAgICAgICAgICAgICAgICAgICAgICAgICAgICAgICAgICAgICAgICAgICAgICAgICAg DQogICAgICAgICAgICAgICAgICAgICAgICAgICAgICAgICAgICAgICAgICAgICAgICAgICAgICAgICAg ICAgICAgICAgICAgICAgICAgICAgICAgICAgICAgIC AgICAgICAgICAgDQogICAgICAgICAgICAgICAgICAgICAgICAgICAgICAgICAgICAgICAgICAgICAgIC AgICAgICAgICAgICAgICAgICAgICAgICAgICAgICAgICAgICAgICAgICAgICAgICAgICAgDQogICAgIC AgICAgICAgICAgICAgICAgICAgICAgICAgICAgICAg ICAgICAgICAgICAgICAgICAgICAgICAgICAgICAgICAgICAgICAgICAgICAgICAgICAgICAgICAgICAg ICAgDQogICAgICAgICAgICAgICAgICAgICAgICAgICAgICAgICAgICAgICAgICAgICAgICAgICAgICAg ICAgICAgICAgICAgICAgICAgICAgICAgICAgICAgIC AgICAgICAgICAgICAgDQogICAgICAgICAgICAgICAgICAgICAgICAgICAgICAgICAgICAgICAgICAgIC WsXQTmMKIdMSPqWBCrYNEfNUPfMEUlPRJnUDSnGJGdDCRyYBZnYTZhBHJfDISpDMOwMZHoFLWtOGp6Z4 sxFYFaZTUdBC9tGAp5Ax7+HCkRPlMgHQU3atLdpP0I JB1sj1CcNRafTIQds4UtKBm3IT5RUEUzRKfzBB6QSLqxcj2NHRTtXTDxxBEHc4duJgNaZBT3FXTkSlej TV3FODKxZ3rwwsJkYSSqILVUPJeaKSUJSDsbTLQVIPTyACXyUyAqUFrjJV3Gr0PnqAS4SOr+Cl4DVK8w q8MmLPakWYThMB5zkd0IOUgKEmHsS7VuheP2KTChXB LxLu4UQWPqIIIlqMHeQhPvQJWIHyUlL3YyrB54GQHGWm8+JOnmrmHcUztCOsFmGAGlg5WkBXc1JV9DQB JyHUf7jADuE56ct1VwjYVaTixrKH3snYc9JABSLT93LTeyXZ1QMDH7AUDgRzMaTrQbCUqjSFB5PVbfGE 3jTEysXW7TSBR0UXkoGTDmYHKkW1bSCfHeVGEeVAGu zTegNO8PApDwS4OfkjHddWErIWVpCUARIp8+LIqqkxIiBccUMeIbJMXku8YsZQp7OQ2UODHyJZfuPY2O MFUriH7xJThoHR1PGaIrYGRyDHRCMeVmA20gjNIdZKf5U2HwRrKbEKRnInfmOOZxYFgjEzVwQUMlXvGo DQogID4+ID4+TUdjBE3HRNpqrdJiCQQlZf9UAHOfAP UrRN3iBMNtPTFwG2W9hLqxQUKGTqOdG8vgakzyHJ9wBCWsR690uIceutOxGTLiSLMmBn8KAIUnOEB0GP TzgKYrRmZrJWBGIHdfHM7HsQJiEKH9uG3kFQarOIKwMDKdA2jYLdJoiZrsOR62yBzawiSqpMOkVJl+Pg 3JQM2np9AqTEa8gwMtQYnfRMD2FIeoFHJuLCBlIFNm EDD8MDJ6DUBPXnRmJSBoYTFwEDphFGVgANDaol8WTMJrEICxEPA1EGFwSVPjEOCyRFjlQAShDZCzDYA1 PCJdKYUoUK7UAvEjZTKnJYZkOIflPYUzZUFofh8ZOYDgQWIlKnW3IJNpDCTsQZCfUMcmPXQwOYCzTgIe VHKhIABlDC1XZoPrXGRiZAM3EfScYVXjIBOuoj1MCT HtVOKcOUwdNsPkPYIuUJYkTHftBZTuBMM7YDM3NKFhFQRqQT6NYtRpDIWjEUxvLqRhYLKiNGCwdg9EEJ RzXIWdLdLbKUHrDMNgXQOvHZevQYVwAAZbFwR5NZLoVZSbNL9ILxOzPOKiIVL3VpurIBGaWRTsir4DGJ UsVCBzOml8DVWhGPGjLDQyOCjnUHHaKVQ6NHK4GHMs BWFaZU3QXlNpDDQuYMDfRYMpEBOrHKLyxu1RHGGzLZUzNPVnJKCfWHZhYRHxYMgeQQWlHXV8GIV0LVSa IFFqSG7BSkVmIIKiKNWqHyZyOUUnNHRbzz7PAFIdIQPiCwJ8JuGoBEQcSJZrQYiuMPKdXSR5FtZ0DBPj WYJgIU5ZYiAiKRMqLchvDkDaIRQxMLVvdj7CVJGwHG ChMFI2NYZbRMQcOKLzBQfrKBIzELF6BqS7JLAhWEIyDO5JIsYlHFGfHlz3CKgjQHBhFABibu5GGVTtXQ NvLXB1GaBaLVSyUZNoQPgzZBCkTQX8PYb6UPNsFMEiFW7DEnPrNZRyJaJyGsElPGOpPDOxgn9KLVHqDW ZzRNE3SxZiXKFkZNZnMMsbBQWaUTZvRgj4ZKCxZPTz DS0FKjRfGXWePrVzIAMaLJVxSALerj7DHEEeXMHdMoSsVDMmIXEhGBOkGSmcIRUpOCZjURZ2ATGxLJWx OO5EFnEzAAvaNWGWMnb1LZqnZ5x0EDJlKS6LV0Aws4NyJjJrDYNAPHysZA5jxnOyUYTcNh8CJ3gCNpp1 VZq6LSTxMpinCcG5RdueEFHjTVdxAfB3FCbpMURoAi 6mGJT2VVs2SUQuIFFqWfjhBNYxHGObZVMyWtsbTiWaWZSaCiItOM6NLn1RAkK3VPT4aBFsIq2AOaZ8EB EYMpDjZJ7LLUi= ID Date Data Source [id number] 04/12/2019 03:58:25 PM [facility] Name Value Range Interpretation Code Description Data Mellissa rce(s) Supporting Document(s) History and Physical [facility] BYXIPe8rYnZPKgFo24/WVYhkJSJih3ZmYXxcUPa3CRkxZLYrK7KcKJZ8zW4nUUX1JTkEHbUmQfUzBNB2 lbm [file] n8e5+gGs3G8Fhyi2HM5jtds9SPSPxBSK3zrtIp+Patience OkFKmydmZg8dqb8ccs4cMx+bPu/R0aZm/Pqoj0AE/KAsaj02n5tExzkQRW9WybTxv6nAxMOxZtrC/SNH ECMTcSGC8Nhpvbp+I7CurW7IKJZ1s1w5lANo2KLk7wqXPIFdA0bQADKytjJebgzzhd6tOJQOkpbNU1cy JtbjVA+BgnLeKt+fY6Q/Hw+Ycm0580RKysjQtdq0J8 nw3bq/nYhlqH+HFdFDhn9JWf4Yhtt+4/IoGIX3mAsnBN91Kv6Gb/cd8ZNk98g711MRB0IkX2P7RxG4aV 8F2xG2dKIGftzqFwm+W+mrDtJW09w0Ml+yw/Z8ce27ah6837dypMVc8gj0gICf9/W7DDIeeey/xL9+6c Kmvpb88n/hS1T6pIhhxgc8PujnTLKCvV8vhX8qwq3+ v1LYuhnX9WzwSxeNLisSWBzrJXgpRqqF8sO/+iHT8KFxFvy6E6VmKhtk0I6IXHqq9nUPtWn8nOussS8m 8VLny/Xe64UQIE9k45WHocZXy/K5Q0CJ2hMp+mockAiC6KBMsYt7UOr5dgBWSb7454fgCGw/nl0hh8hg hauser+U6+/9N2/J+2y3/luN9T6cH4x/Lbytx1bNmZzbLO +QnEuHkbKxC0ZDSkQvH8F/sd3M/AUFmod2wyFTIwwca+Yl2a8/uPMpfKRB6tbY8mwxOkFQk6BWT6Lywc 2BP664ld9z7BE9lk0S7w8/b6HO/WbPddL03XnK8gWdQgxc8KN+rUtLi6apjtT9L4f26+u1pjG8tlGE7m 5P3nzTCG+br1W+Ab3IAF3k+I77ILXUdcWgj6XGa2mD 5og6PA3yD1qJkS1+BQ3tVDh5yideN3xaO19V75naxaNCz5oJqz4pR+zuq6UKpxssvCbd9X7AWqwq7Niu fJyMp2bBgC9fWob6VIztpcO82qt5W9Q7r1Oo+J7nhCibvluMem40b/hu/SKGeJBjxPs6oDaS03tj4u37 dT+0uzoMc/IJ+6+6C0udqXjwKwW1aTHPfknEGwLcXL T9S0s6ZquDGIdmZLXY0rCQMcBU97zCuTipx8Jr5m4sZn0O4NhBYXmOdQ56eiNo+FfvIT+AFNh/8NUANr wnGyLy3hnYVlni22rsqkR3mkN4bfrRrdx5Lv5Bspe2oZQO3fz9jqkeZlxTwHaCN+MdLtstfvvK/A/cad administrator [file] gwMTJmNGVlZWRjYjI+YD2bDCf+Oy2Yg8LcrkM8sgWyRSxqFyrtQb0REXQYT7AVIk== ID Date Data Source [id number] 04/12/2019 03:57:55 PM [facility] Name Value Range Interpretation Code Description Data Mellissa rce(s) Supporting Document(s) Consultation [facility] TTPQIr7fTrBORtZv01/RSLxqMBMfw0JtWXyuQHw7KQdxFWDmG0FvLKR7yX1rOIT7PEtDDvRcJlQtJDL2 lbm [file] AgICAgICAgICAgICAgICAgICAgICAgICAgICAgICAg ICAgICAgICAgICAgICAgICAgICAgICAgICAgICAgICAgICAgICAgICAgICAgICAgDQogICAgICAgICAg ICAgICAgICAgICAgICAgICAgICAgICAgICAgICAgICAgICAgICAgICAgICAgICAgICAgICAgICAgICAg ICAgICAgICAgICAgICAgICAgICAgICAgICAgICAgDQ ogICAgICAgICAgICAgICAgICAgICAgICAgICAgICAgICAgICAgICAgICAgICAgICAgICAgICAgICAgIC AgICAgICAgICAgICAgICAgICAgICAgICAgICAgICAgICAgICAgICAgDQogICAgICAgICAgICAgICAgIC AgICAgICAgICAgICAgICAgICAgICAgICAgICAgICAg ICAgICAgICAgICAgICAgICAgICAgICAgICAgICAgICAgICAgICAgICAgICAgICAgICAgDQogICAgICAg ICAgICAgICAgICAgICAgICAgICAgICAgICAgICAgICAgICAgICAgICAgICAgICAgICAgICAgICAgICAg ICAgICAgICAgICAgICAgICAgICAgICAgICAgICAgIC AgDQogICAgICAgICAgICAgICAgICAgICAgICAgICAgICAgICAgICAgICAgICAgICAgICAgICAgICAgIC AgICAgICAgICAgICAgICAgICAgICAgICAgICAgICAgICAgICAgICAgICAgDQogICAgICAgICAgICAgIC AgICAgICAgICAgICAgICAgICAgICAgICAgICAgICAg ICAgICAgICAgICAgICAgICAgICAgICAgICAgICAgICAgICAgICAgICAgICAgICAgICAgICAgDQogICAg ICAgICAgICAgICAgICAgICAgICAgICAgICAgICAgICAgICAgICAgICAgICAgICAgICAgICAgICAgICAg ICAgICAgICAgICAgICAgICAgICAgICAgICAgICAgIC AgICAgDQogICAgICAgICAgICAgICAgICAgICAgICAgICAgICAgICAgICAgICAgICAgICAgICAgICAgIC AgICAgICAgICAgICAgICAgICAgICAgICAgICAgICAgICAgICAgICAgICAgICAgDQogICAgICAgICAgIC AgICAgICAgICAgICAgICAgICAgICAgICAgICAgICAg ICAgICAgICAgICAgICAgICAgICAgICAgICAgICAgICAgICAgICAgICAgICAgICAgICAgICAgICAgDQo8 Y8umWSJyJVImWJ2hKXf8Ov8+IXrPWwQrLRG3mqEmnT3MZQ4mc2YuRNaxODUpb7UkJCt9AR5FKJMsPAlc DA3RUGchju5CNDTmCYTupNWIe7bmMqYoOFT8VUBjYb guDW5FYQTbY1opfcJsSVZiWOVMDUhwBDPDKCzaGWQWCTCmWATkYoTyElMiADJhUWBlHFARQVU2CJNxBu SvRCNfUSRwEL7TVDAnA471cyLpIY3CHs4DAoPcRA2clh1OQoehMZZjTaaMAos5WNswIO9SgSRmxJM4NF HqGCZKZnPzW1npm5GpHDUjFEKZLXxtLD1Zt8SzhMId DQo+Ym4WYJ2wn7AeMWu9NASqSG8ggm5BDUlYJcYsR1ArcCxiCZAuzyJ3pTAaXEX1YGBzvOOovHKSdEBh AIqlDMBRRpZepUCvCl4jVP9zBTT0LXObIkFbXLDZGA2ZRXKzLYIizGEjVABaKBIQQX3QXZfhKDV5GYDi hyTmsPNsAPcuFD3AWLKeopTgElpfBNHCJCn+Pg0KZW 6pp4PhKPi2XTArMZ8wvz4GPYzWOmOsV2L8iPAaB3U2AEzlHj5TXWNaXLUhBgdxXKJUUNkaMM8DGO0enm C5XT0VsYJwFPIuPIEknGRpYUw8A51akMCnRFtnAZ3QUNW+Isiah+Cg7QHELpHXPvGGDgTeLaNPBQXxRaN5 EgM3TXo3VlZ8FtMT04gWpwwsIxVFunRH3COB6kARQs SMWGSZ9EhGCziL9ftfZdYKRkDJGIHyTdG10imPZtSELaVIQ7GESsXw3ZYFMtZ8WojfTvmSljkeTrAILo ZICRNT1ZMWwvmbCkjBLqeRrqPH03dPpcQP6PQg3ZDkBoHQ1zbv8VrCEkRq6QKPV7Ds3PXAGrCWVxYZUm QOT1VESpSnXzYJbcZUHlAIGdOAW6XAHlUGOiVO4AAn UtLQBiWtW6FLghIUXpZOXjwy9BUNTsNUU1NCL2CJUvLUDlDQYcWHvvZVRfCCBcUWA9FWIaEYAxAE7JWh UpJDZiFMM3NrftELOqSBXget4BWABnKXTyRQOsEtRmYTPxNULyJYfsJOHfXJR0FNg8YUWyUGFqND2OOl FbZQYlGTx8MSCpZWGnRTIfdb7JUVQoCLCxADOqKNKs GEXyKLJzICnqVYWhYHVcIBN6LGRuQCDvUO6APdDxZXTeUKO4TVYuRCVaRFIbve8TFTMqISDrJSBwZDWt INTzRIOnSXgnBJGyYAR2BBpwANIyMRCiBN4KGcBhGYQzZRlnCZfoGBZjNRAetu3NKYZiFVBcJMY1RiWm GKCrLBBaKBkhDNJuTGC8MPrwCAQiPNDfKJ1MOuYsAR JsMbG1GvZgHERjEUTkpd0VBGYlJFFnZxygIOJvFUEkDNFlZBtiXCAdZQE9LNf2HWTwUYMaPT6WRfXdYE XfGvL5DTTaDKUxDXWovh0TQBYwNSKfZJH2WZXtJLPzPEWfQYmeRXHqGMZ5DSFlKNJiTYIjKV9GTfIiYD UnIuZ0DRZdWVTbLAOvii8KERUlDNEoJyzhRaIcYBBr CFNfDJnaBEZeSUM5ZUQ0VVWpFQJcDS6FQrCgTKZbFqmzQHRlGZOsXXCahe0CGIGxDMWkJSB5JhNhKBVy MLVbSZmmHHWcIAH5QvLhVFOdVLQcTB9ZQpIuBGIvYbl3OiGyQUNbSNQlxk3CWYAlAUY9VRCrQgZgXPIp MAYyZKowMWWqIFLiHeOoWMEoFMCiLH2QQoRfWCYkNs H9XzUcHHByHFVyyd8QMQCbBOK6LaOaFISnILNhSEGlIIqeINTgEYZqSKW5FFHtPARvDT7ROaLbQWOyAz S7BMRcZFXbANLvgv6CMPWnSYD3ZxR7LQOtSXTdBFZpPVwwBODbVHFsZyp5OXPpIERqLO2AZpLmTRLaLw FhCBnpJMMiNYIxbo0ROTOpUTP2TCM9BNJuADXsIWTj MTizLBDzKJE3TmB4ZHRaTRIbHT8EVmBhIJVyHyS4WEbpFNEbAJRcyi8KmYSfqQxali7ZPVbFEa4RwWmh TMNoIGvpYj0ucTU2ELLjIZWJFu3KzqZiOBRhJGMPLMxvYFKjAKg4WEJaEMd2LgYwPSBdNMicMNKyUqUw WAXrQVRfDDv7JuL8UiQ1PlLzXJZvScHlYzS1DYS4Ct RaGQYqG4R3QIWdLKL+XR4xQGd+Sz1Ic4BoycA8sqWmNQe1OqG0Hv1POQBBC6TINl== ID Date Data Source [id number] 04/11/2019 10:07:01 AM EST [facility] Name Value Range Interpretation Code Description Data Mellissa rce(s) Supporting Document(s) Discharge Summary [facility] IBVXSs1uPnYALyOg69/THKytWYBsf8TzWCkjQPz0ESvmWDYjZ1GyKYZ5aW3rABT6NJdQJhNpWfOiVYM8 lbm [file] D0MQLsIDRmK4AsOsjrEOP9EzD+PA3lDBn+Ce6Qq8NmexT9fhAgEQmnCsE0Ki4GOBJVA0NFVp== ID Date Data Source [id number] 04/10/2019 03:27:42 [facility] Name Value Range Interpretation Code Description Data Mellissa rce(s) Supporting Document(s) Consultation [facility] BCKUKc8tBmVAOwDn60/ENFxyBULaz6IwONbfKVz9ZOlwBGAaA6IfNAU4mY3zZQW1BXtXQyMaGrQhOTHg lbm [file] o= ID Date Data Source [id number] 04/09/2019 12:08:33 PM [facility] XR CHEST FRONTAL ONLY [id number] RESULTI nterpreted by:Cale Larose MDINDICATION: Pneumonia.TECHNIQUE: XR CHEST FRONTAL ONLY [id number], 04/09/2019 9:55 AM, upright.COMPARISON: 04/06/2019.FINDINGS: The chest wall and mediastinum have not changed and are essentially normal. I see no findings of pleural disease. The patient has a neurostimulator device that projects over the left lung apex. The diffuse lung disease that was apparent on the previous study has improved, and no new abnormalities are identified in either lung.IMPRESSION: 1. Improvement of diffuse lung disease, likely pulmonary edema. The possibility of an atypical pneumonia must also be considered.This document has been electronically signed by Cale Larose MD on 04/09/2019 12:06 PM Name Value Range Interpretation Code Description Data Mellissa rce(s) Supporting Document(s) ID Date Data Source [id number] 04/09/2019 05:18:31 AM [facility] Name Value Range Interpretation Code Description Data Mellissa rce(s) Supporting Document(s) Leukocytes [#/volume] in Blood by Automated count 8.4 10*3/uL 4-10 [facility] Erythrocytes [#/volume] in Blood by Automated count 3.94 10*6/uL 4.1- 5.[address] [facility] Hemoglobin [Mass/volume] in Blood 10.7 g/dL 11.5-15.[address] [facility] Hematocrit [Volume Fraction] of Blood by Automated count 32.3 % 3 6-[address] [facility] Erythrocyte mean corpuscular volume [Entitic volume] by Auto mated count 81.8 fL 80-96 [facility] Erythrocyte mean corpuscular hemoglobin [Entitic mass] by Automated count 27.2 pg 27-33 [facility] Erythrocyte mean corpuscular hemoglobin concentration [Mass/volume] by Automated count 33.2 g/dL 32.0-[facility] width [Ratio] by Automated count 16.4 % 11.5-14.[address] [facility] Platelets [#/volume] in Blood by Automated count 288 10*3/uL 150-400 [facility] Differential cell count method - Blood [facility] Neutrophils/100 leukocytes in Blood by Automated count 57 % [facility] Lymphocytes/100 leukocytes in Blood by Automated count 34 % [facility] Monocytes/100 leukocytes in Blood by Automated count 7 % [facility] Eosinophils/100 leukocytes in Blood by Automated count 1 % [facility] Basophils/100 leukocytes in Blood by Automated count 1 % [facility] Neutrophils [#/volume] in Blood by Automated count 4.72 10*3/uL 1.8-[address] [facility] Lymphocytes [#/volume] in Blood by Automated count 2.85 10*3/uL 1.2-[address] [facility] Monocytes [#/volume] in Blood by Automated count 0.61 10*3/uL 0-0.8 [facility] Eosinophils [#/volume] in Blood by Automated count 0.11 10*3/uL 0-0.5 [facility] Basophils [#/volume] in Blood by Automated count 0.08 10*3/uL 0-0.2 [facility] Nucleated erythrocytes/100 leukocytes [Ratio] in Blood by Automated count 0 /100{WBCs} 0-0 [facility] ID Date Data Source [id number] 04/09/2019 05:36:33 AM [facility] Name Value Range Interpretation Code Description Data Mellissa rce(s) Supporting Document(s) Bicarbonate [Moles/volume] in Serum 27 mmol/L 22-29 [facility] Chloride [Moles/volume] in Serum or Plasma 99 mmol/L 98-107 [facility] Creatinine [Mass/volume] in Serum or Plasma 0.48 mg/dL 0.50-0.[address] [facility] Glucose [Mass/volume] in Serum or Plasma 88 mg/dL 70-140 [facility] Potassium [Moles/volume] in Serum or Plasma 3.7 mmol/L 3.4-5.1 [facility] Sodium [Moles/volume] in Serum or Plasma 137 mmol/L 136-145 [facility] Urea nitrogen [Mass/volume] in Serum or Plasma 7 mg/dL 6-20 [facility] Anion gap 3 in Serum or Plasma 11 mmol/L 8-15 [facility] Osmolality of Serum or Plasma by calculation 281 mosm/kg 275-300 [facility] Creatinine/Urea nitrogen [Mass Ratio] in Serum or Plasma 15 [facility] Calcium [Mass/volume] in Serum or Plasma 8.9 mg/dL 8.6-10.0 [facility] Glomerular filtration rate/1.73 sq M pre dicted among non-blacks [Volume Rate/Area] in Serum or Plasma by Creatinine-based formula (MDRD) >[address] [facility] Glomerular filtration rate/1.73 sq M pre dicted among blacks [Volume Rate/Area] in Serum or Plasma by Creatinine-based formula (MDRD) >60 [facility] ID Date Data Source [id number] 04/09/2019 05:36:33 AM [facility] Name Value Range Interpretation Code Description Data Mellissa rce(s) Supporting Document(s) Magnesium [Mass/volume] in Serum or Plasma 1.8 mg/dL 1.6-2.6 [facility] ID Date Data Source [id number] 04/09/2019 05:36:33 AM [facility] Value Range Interpretation Code Description Data Mellissa rce(s) Supporting Document(s) Phosphate [Mass/volume] in Serum or Plasma 4.6 mg/dL 2.5-4.[address] [facility] ID Date Data Source [id number] 04/08/2019 06:45:55 AM [facility] Name Value Range Interpretation Code Description Data Mellissa rce(s) Supporting Document(s) Leukocytes [#/volume] in Blood by Automated count 10.5 10*3/uL 4-[address] [facility] Erythrocytes [#/volume] in Blood by Automated count 3.69 10*6/uL 4.1- 5.[address] [facility] Hemoglobin [Mass/volume] in Blood 10.1 g/dL 11.5-15.[address] [facility] Hematocrit [Volume Fraction] of Blood by Automated count 30.2 % 3 6-[address] [facility] Erythrocyte mean corpuscular volume [Entitic volume] by Auto mated count 81.9 fL 80-96 [facility] Erythrocyte mean corpuscular hemoglobin [Entitic mass] by Automated count 27.3 pg 27-33 [facility] Erythrocyte mean corpuscular hemoglobin concentration [Mass/volume] by Automated count 33.4 g/dL 32.0-36.0 [facility] E[facility]throcyte distribution width [Ratio] by Automated count 16.6 % 11.5-14.[address] [facility] Platelets [#/volume] in Blood by Automated count 242 10*3/uL 150-400 [facility] Differential cell count method - Blood [facility] Neutrophils/100 leukocytes in Blood by Automated count 72 % [facility] Lymphocytes/100 leukocytes in Blood by Automated count 21 % [facility] Monocytes/100 leukocytes in Blood by Automated count 5 % [facility] Eosinophils/100 leukocytes in Blood by Automated count 1 % [facility] Basophils/100 leukocytes in Blood by Automated count 1 % [facility] Neutrophils [#/volume] in Blood by Automated count 7.61 10*3/uL 1.8-[address] [facility] Lymphocytes [#/volume] in Blood by Automated count 2.21 10*3/uL 1.2-[address] [facility] Monocytes [#/volume] in Blood by Automated count 0.49 10*3/uL 0-0.8 [facility] Eosinophils [#/volume] in Blood by Automated count 0.10 10*3/uL 0-0.5 [facility] Basophils [#/volume] in Blood by Automated count 0.05 10*3/uL 0-0.2 [facility] Nucleated erythrocytes/100 leukocytes [Ratio] in Blood by Automated count 0 /100{WBCs} 0-0 [facility] ID Date Data Source [id number] 04/08/2019 07:06:14 AM [facility] Name Value Range Interpretation Code Description Data Mellissa rce(s) Supporting Document(s) Bicarbonate [Moles/volume] in Serum 22 mmol/L 22-29 [facility] Chloride [Moles/volume] in Serum or Plasma 99 mmol/L 98-107 [facility] Creatinine [Mass/volume] in Serum or Plasma 0.38 mg/dL 0.50-0.[address] [facility] Glucose [Mass/volume] in Serum or Plasma 88 mg/dL 70-140 [facility] Potassium [Moles/volume] in Serum or Plasma 3.7 mmol/L 3.4-5.1 [facility] Sodium [Moles/volume] in Serum or Plasma 133 mmol/L 136-[address] [facility] Urea nitrogen [Mass/volume] in Serum or Plasma 6 mg/dL 6-20 [facility] Anion gap 3 in Serum or Plasma 12 mmol/L 8-15 [facility] Osmolality of Serum or Plasma by calculation 273 mosm/kg 275-[address] [facility] Creatinine/Urea nitrogen [Mass Ratio] in Serum or Plasma 16 [facility] Calcium [Mass/volume] in Serum or Plasma 8.4 mg/dL 8.6-10.[address] [facility] Glomerular filtration rate/1.73 sq M pre dicted among non-blacks [Volume Rate/Area] in Serum or Plasma by Creatinine-based formula (MDRD) >[address] [facility] Glomerular filtration rate/1.73 sq M pre dicted among blacks [Volume Rate/Area] in Serum or Plasma by Creatinine-based formula (MDRD) >60 [facility] ID Date Data Source [id number] 04/08/2019 07:06:14 AM [facility] Value Range Interpretation Code Description Data Mellissa rce(s) Supporting Document(s) Magnesium [Mass/volume] in Serum or Plasma 1.7 mg/dL 1.6-2.6 [facility] ID Date Data Source [id number] 04/08/2019 07:06:14 AM [facility] Name Value Range Interpretation Code Description Data Mellissa rce(s) Supporting Document(s) Phosphate [Mass/volume] in Serum or Plasma 3.6 mg/dL 2.5-4.5 [facility] ID Date Data Source [id number] 04/07/2019 01:59:57 PM EST [facility] Name Value Range Interpretation Code Description Data Mellissa rce(s) Supporting Document(s) History and Physical [facility] QIVGMz4sNxGHLgPg66/KFNtgQLRnx9YhOKwrENb4DInxQANnU7HsJBJ2tV5dYIC6TDlNSwPgLDhtUfCc lbm [file] Andrés+NUfE6Mt4uqNa7sXofl9MiFY/QFCrbyhLB5cnPp [file] ICAgICAgICAgICAgICAgICAgICAgICAgICAgICAgICAgICAgICAgICAgICAgICAgICAgICAgICAgICAg CDShZMBjOUZlMJGeATNeGS2RXKMvDYWsMEHvSGDiIPAnWPXgMKWnVPNlYDLzSDIkPTYrLIMaVUVtIHDk ICAgICAgICAgICAgICAgICAgICAgICAgICAgICAgIC OxBYHtBRLoZVDwXKYqOBNfADCuCBYxKQOcKD4YWSYcDCZgMPDsPHUsLMJtEWVdODOsWKJxCQWaGNTvKH AgICAgICAgICAgICAgICAgICAgICAgICAgICAgICAgICAgICAgICAgICAgICAgICAgICAgICAgICAgIC WlBBNbXZUdJJ9HLACrDOQqJWBwXEWjQHOxCIRfHJHo ICAgICAgICAgICAgICAgICAgICAgICAgICAgICAgICAgICAgICAgICAgICAgICAgICAgICAgICAgICAg GGHkWJRqFOIfSZNzZCLmOHOpOS0QUZZyUZEdMHVxYTQpEHDfTXPpDOJyFKHfLTVeOWSbKDXyNZFfYSIn ICAgICAgICAgICAgICAgICAgICAgICAgICAgICAgIC XeFNRcFFKhOVEjVSGoEPAoMYWjSEVrLMZpWXVgPV4ENZLgIXGwUTGuJGBnYJLnILJbRXEwWSDxLSBiYA AgICAgICAgICAgICAgICAgICAgICAgICAgICAgICAgICAgICAgICAgICAgICAgICAgICAgICAgICAgIC ThGWCmTZDgKZRaQH6KSYRlSXYrQMKxTHOfLLBoYIUt ICAgICAgICAgICAgICAgICAgICAgICAgICAgICAgICAgICAgICAgICAgICAgICAgICAgICAgICAgICAg BZNnRGRdOWOcBBYwQTTzSCRhSGTdYV4EVIKvMJXwEEGiVDBzYJPaMKNhUYErXBHcKJGnOUSrMGYoBOXc ICAgICAgICAgICAgICAgICAgICAgICAgICAgICAgIC JlKYLcRRTpRSPgTIQoIIUbMJMvIRHjJNWmTFQbJQHaFN6KHKBsEMIoTJPoGAOsTXCtJFCsEJPzYTKzVK AgICAgICAgICAgICAgICAgICAgICAgICAgICAgICAgICAgICAgICAgICAgICAgICAgICAgICAgICAgIC WqRXOtUNHbDSZbJGZfOT6XSYJbOLJsLZVpOIPdWEHn ICAgICAgICAgICAgICAgICAgICAgICAgICAgICAgICAgICAgICAgICAgICAgICAgICAgICAgICAgICAg RWUhSJFdWRGjHGYeDFDpBKWxKCGaNKEdKR5KNH74cZDpn7L8XCAbNV0sjbs/Ng2EHHkhnbMrpELrSJ2F NsOqWG1tzd6LEoLtKI4dji9UGWwHIeGcN9U8dNAmKJ AxYOWIEnHiD28wPUxxFw09QOrfSEHcIxDzCCc4Ig2FDcWrB9nhQGAwXeN8DCLhDoH6AOWgRmG9SUXlGw NmLPJjKJOlEBXuRXLSPN7YDnRdA5DbbE23NPNJEd1+NEmomnQiXqvGJkLeEIXxi1NkYAa8UC6FATYnXh ozt6GbBwKeDIUSMCacWE7DTTR8TCT0TXIvOb2WOCNj D533ypMmOO5XHi4QBmXmXY3csw4PWfTlFPVfGisAKlw2KOryXW8WgEZnNOzHInEgYsdtCFNam10oQIve m9xfJEENCDWfjPXgGw1mKE9oYVN1WWR6XzMcOVKDWZ2TDGRkAYErpWVoDXOwSVBXYN6QLWbaZYY4FYCn reTgtFNfPEtcFJ7NROBcgbZyRyIbARIZJPe+Pg0KZW 7au5XgVTabWDWfGX8plq8SEUlGQmQzR8U6pUZyS2P5AUgbLk2AYCAnLKJnUvHxIGGIKAdjIC1KDT5qau G4FK4RaXRrAOKtTUJzgNBwRPj9B33nmLZyFLlrGD7TJPN+Isiah+Jl3ACROxACZoOHOzZnSmMQWEGvWuQ0 KpI8TJn9RyR6DtJJ96gQekigXuHMrmKS9VPJ2vEEWz VREDBJ4TyYEnkM7awcSlXvTuRTAKCbPrM55flRWyGESxPFLhQZTiCp9ZSWVbV1KrbaBoyEndzuJeAYQs VEMJPF8UWXnqquInrIWplJpbTY19aKlsFY6GOh7JCuMlOH0mpc6NlPQjGb4JAJAmWd0TLCNfRNFqILHq NVG0ELJxNpFnVIbcYUOgQIHtDMX7TTJfKSCvTD9XMk KiYENeUwZ9XbUpHFGvPIFnbi8BHUKiQBCgMUV5KtOxBPKrMSIqNXqqVOVsMQCtKZQ3JRLaDVOgPF1VQt PqXXOmQDC1JLMdCOKjDLUmul9BLAUiPUXpLyG1MJYdDSOhPDSdHHxnTRXfNCZ1IGUhTPKvPKGzLL4KPk PkSIHrAOhjRjIgXAGgFEZmlb9LFDItFHXdADx7BaKs FVFyTBFoPKtsQCQtCXQjLULxVONkBNFgVH9GGiOhDKZpVDSoWuhiQJAoISNqtz1UMKLyZZCqBfP4WKKz SUXlNGAiINnnWPJwQHS7FjCsESCfRXVxUR6GVfPbJLVbMJG2NiczGIJeQYOvfj1DBFDqTKUaMmmiHQXw HRXnYHZaDOldRCZcEQY0ZHS9OYKxXBByFM0YMpGuJJ OtEDewGLtxGZGvNFZkuf9EVDGxVIVyIWQ7UwZxJLNcMEBsZStzBOBxOHD8EzD9DIErFJGyVH3DPkGlDP MdQHw2VBueLLBcPQDwmz6COZWjPDInIBSiBpJzEQPvIAVlGIesNMDvTSD3FcG5VBWhXBWsDZ2DUuJbVY QvEVz8OGfcQJKxDBKkga7YQDHgUNBdKHI2DqNuYCJg IEYhFMwoNDMuYKYnSfOaQILjPERoMU4MHbHhIWAxDhJ2BOqtBNAtIPFzap0RXRHqNXZgQzR1AALcNVPr ZIBtEFumEVCnFVFoAWi2SJPtEHElPE4VAsHtFIRaQkWlOwibECEhHQOscx3UHCEnDEBpBoVpHvMxCDHp CSNjVHghOBZtWWVxSOW4BNRbDXJoNH4IEwVaTYRnJq Z8VzqdKLUnPXRwka8RITLsXAOdCJPiADItUBNvPRBtGRkgJOChMRB9BJqnSRZaPNXwKD0IUiWuERWkWw G8FAjpKYLzZAZkle5EmRQegNuwpa4WISiLXp5VyRyrRBA4NFkyFe6fmKXpQGGxBNMMQs2PqsVhZEHtLX UWGIypBPMmAVC8VDLsQBEiZWi0DxoeSeVyLVHoBtBa PVqjWOGoYQQ2SiV7RlWrXEWrQZS0HbnwRADfIPB7DCXrHzD0JUA6NuD2NeK+SV6hKBa+Mn0Sg2XnxiN6 jqXfMRbrWRu9Ka5BTJEYU0HHPn== ID Date Data Source [id number] 04/07/2019 07:39:01 AM [facility] Name Value Range Interpretation Code Description Data Mellissa e(s) Supporting Document(s) Leukocytes [#/volume] in Blood by Automated count 11.7 10*3/uL 4-[address] [facility] Erythrocytes [#/volume] in Blood by Automated count 4.12 10*6/uL 4.1- 5.3 [facility] Hemoglobin [Mass/volume] in Blood 11.1 g/dL 11.5-15.[address] [facility] Hematocrit [Volume Fraction] of Blood by Automated count 34.0 % 3 6-[address] [facility] Erythrocyte mean corpuscular volume [Entitic volume] by Auto mated count 82.5 fL 80-96 [facility] Erythrocyte mean corpuscular hemoglobin [Entitic mass] by Automated count 26.8 pg 27-[address] [facility] Erythrocyte mean corpuscular hemoglobin concentration [Mass/volume] by Automated count 32.5 g/dL 32.0-36.0 [facility] distribution width [Ratio] by Automated count 16.9 % 11.5-14.[address] [facility] Platelets [#/volume] in Blood by Automated count 291 10*3/uL 150-400 [facility] Differential cell count method - Blood [facility] Neutrophils/100 leukocytes in Blood by Automated count 89 % [facility] Lymphocytes/100 leukocytes in Blood by Automated count 8 % [facility] Monocytes/100 leukocytes in Blood by Automated count 3 % [facility] Eosinophils/100 leukocytes in Blood by Automated count 0 % [facility] Basophils/100 leukocytes in Blood by Automated count 0 % [facility] Neutrophils [#/volume] in Blood by Automated count 10.35 10*3/uL 1.8- 7.[address] [facility] Lymphocytes [#/volume] in Blood by Automated count 0.95 10*3/uL 1.2-[address] [facility] Monocytes [#/volume] in Blood by Automated count 0.34 10*3/uL 0-0.8 [facility] Eosinophils [#/volume] in Blood by Automated count 0.00 10*3/uL 0-0.5 [facility] Basophils [#/volume] in Blood by Automated count 0.04 10*3/uL 0-0.2 [facility] Nucleated erythrocytes/100 leukocytes [Ratio] in Blood by Automated count 0 /100{WBCs} 0-0 [facility] ID Date Data Source [id number] 04/07/2019 07:52:23 AM [facility] Name Value Range Interpretation Code Description Data Mellissa rce(s) Supporting Document(s) Prothrombin time (PT) 14.8 s 12.5-14.9 [facility] INR in Platelet poor plasma by Coagulation assay 1.13 [facility] ID Date Data Source [id number] 04/07/2019 07:55:04 AM [facility] Name Value Range Interpretation Code Description Data Mellissa rce(s) Supporting Document(s) Bicarbonate [Moles/volume] in Serum 21 mmol/L 22-[address] [facility] Chloride [Moles/volume] in Serum or Plasma 102 mmol/L 98-107 [facility] Creatinine [Mass/volume] in Serum or Plasma 0.40 mg/dL 0.50-0.[address] [facility] Glucose [Mass/volume] in Serum or Plasma 70 mg/dL 70-140 [facility] Potassium [Moles/volume] in Serum or Plasma 4.4 mmol/L 3.4-5.1 [facility] Sodium [Moles/volume] in Serum or Plasma 137 mmol/L 136-145 [facility] Urea nitrogen [Mass/volume] in Serum or Plasma 4 mg/dL 6-[address] [facility] Anion gap 3 in Serum or Plasma 15 mmol/L 8-15 [facility] Osmolality of Serum or Plasma by calculation 280 mosm/kg 275-300 [facility] Creatinine/Urea nitrogen [Mass Ratio] in Serum or Plasma 10 [facility] Calcium [Mass/volume] in Serum or Plasma 8.2 mg/dL 8.6-10.0 [facility] Glomerular filtration rate/1.73 sq M pre dicted among non-blacks [Volume Rate/Area] in Serum or Plasma by Creatinine-based formula (MDRD) >[address] [facility] Glomerular filtration rate/1.73 sq M pre dicted among blacks [Volume Rate/Area] in Serum or Plasma by Creatinine-based formula (MDRD) >60 [facility] ID Date Data Source [id number] 04/07/2019 07:55:04 AM [facility] Name Value Range Interpretation Code Description Data Mellissa rce(s) Supporting Document(s) Magnesium [Mass/volume] in Serum or Plasma 2.0 mg/dL 1.6-2.6 [facility] ID Date Data Source [id number] 04/07/2019 07:55:04 AM [facility] Value Range Interpretation Code Description Data Mellissa rce(s) Supporting Document(s) Phosphate [Mass/volume] in Serum or Plasma 3.2 mg/dL 2.5-4.5 [facility] ID Date Data Source [id number] 04/10/2019 08:06:03 PM [facility] Value Range Interpretation Code Description Data Mellissa rce(s) Supporting Document(s) Galactomannan Ag [Presence] in Serum or Plasma by Immunoassa y 0.05 Index 0.00-0.49 [facility] (NOTE)Performed At: [facility] [id number] Benoit MD Ph:[phone] At: [facility] [id number] [place], [place] [id number] Osorio MD Ph:[phone] ID Date Data Source [id number] 06/01/2019 07:53:17 AM [facility] Cmnt XXX-Imp : Acid fast Stn XXX : No Acid fast bacilli seen on Fluorochrome stain.Microorganism XXX Cult : No growth (qualifier value) Name Value Range Interpretation Code Description Data Mellissa rce(s) Supporting Document(s) ID Date Data Source [id number] 04/10/2019 10:32:12 AM [facility] Cmnt XXX-Imp : Microorganism XXX Cult : 2Candida albicans Name Value Range Interpretation Code Description Data Mellissa rce(s) Supporting Document(s) ID Date Data Source [id number] 05/06/2019 07:40:37 AM [facility] Cmnt XXX-Imp : Microorganism XXX Cult : No virus isolated Name Value Range Interpretation Code Description Data Mellissa rce(s) Supporting Document(s) ID Date Data Source [id number] 04/13/2019 11:17:14 AM [facility] Cmnt XXX-Imp : Microorganism XXX Cult : No Legionella pneumophila isolated Name Value Range Interpretation Code Description Data Mellissa rce(s) Supporting Document(s) ID Date Data Source [id number] 04/10/2019 07:30:55 AM [facility] Cmnt XXX-Imp : Microorganism XXX Cult : Mycoplasma pneumoniae by PCR: Negative. This test was developed and its performance characteristics determined by [employer]. It has not been cleared or approved by the Food and Drug Administration. The FDA has determined that such clearance or approval is not necessary.[facility] [address] [place] [address] Name Value Range Interpretation Code Description Data Mellissa rce(s) Supporting Document(s) ID Date Data Source [id number] 04/08/2019 11:17:41 AM [facility] Cmnt XXX-Imp : Gram Stn XXX : No WBC's or organisms seen.Microorganism XXX Cult : Normal serenity Name Value Range Interpretation Code Description Data Mellissa rce(s) Supporting Document(s) ID Date Data Source [id number] 04/07/2019 11:03:29 AM [facility] Cmnt XXX-Imp : P jiroveci Ag Spt Ql IF : Negative for Pneumocystis jiroveci Name Value Range Interpretation Code Description Data Mellissa rce(s) Supporting Document(s) ID Date Data Source [id number] 06/01/2019 07:53:17 AM [facility] Cmnt XXX-Imp : Acid fast Stn XXX : No Acid fast bacilli seen on Fluorochrome stain.Microorganism XXX Cult : No growth (qualifier value) Name Value Range Interpretation Code Description Data Mellissa rce(s) Supporting Document(s) ID Date Data Source [id number] 04/10/2019 11:30:30 AM [facility] Cmnt XXX-Imp : Microorganism XXX Cult : One (1) colony ofCandida albicans Name Value Range Interpretation Code Description Data Mellissa rce(s) Supporting Document(s) ID Date Data Source [id number] 05/06/2019 07:41:33 AM [facility] Cmnt XXX-Imp : Microorganism XXX Cult : No virus isolated Name Value Range Interpretation Code Description Data Mellissa rce(s) Supporting Document(s) ID Date Data Source [id number] 04/13/2019 11:17:14 AM [facility] Cmnt XXX-Imp : Microorganism XXX Cult : No Legionella pneumophila isolated Name Value Range Interpretation Code Description Data Mellissa rce(s) Supporting Document(s) ID Date Data Source [id number] 04/10/2019 07:31:13 AM [facility] Cmnt XXX-Imp : Microorganism XXX Cult : Mycoplasma pneumoniae by PCR: Negative. This test was developed and its performance characteristics determined by [employer]. It has not been cleared or approved by the Food and Drug Administration. The FDA has determined that such clearance or approval is not necessary.Performed by [employer], [address] [place] [address] Name Value Range Interpretation Code Description Data Mellissa rce(s) Supporting Document(s) ID Date Data Source [id number] 04/08/2019 07:46:32 AM [facility] Cmnt XXX-Imp : Microorganism XXX Cult : [place] count <=10,000 cfu/mlNormal serenity Name Value Range Interpretation Code Description Data Mellissa rce(s) Supporting Document(s) ID Date Data Source [id number] 04/07/2019 11:03:58 AM [facility] Cmnt XXX-Imp : P jiroveci Ag Spt Ql IF : Negative for Pneumocystis jiroveci Name Value Range Interpretation Code Description Data Mellissa rce(s) Supporting Document(s) ID Date Data Source [id number] 04/06/2019 06:46:59 PM [facility] Value Range Interpretation Code Description Data Mellissa rce(s) Supporting Document(s) Glucose [Mass/volume] in Capillary blood by Glucometer 93 mg/dL 70- 140 [facility] ID Date Data Source [id number] 04/06/2019 04:42:38 PM [facility] Name Value Range Interpretation Code Description Data Mellissa rce(s) Supporting Document(s) pH of Arterial blood 7.38 7.38-7.44 [facility] Carbon dioxide [Partial pressure] in Arterial blood 39 mm[Hg] 35-40 [facility] Oxygen [Partial pressure] in Arterial blood 124 mmHg 95-[address] [facility] Oxygen saturation in Arterial blood 99 % 94-100 [facility] Base excess in Arterial blood by calculation [facility] Carbon dioxide, total [Moles/volume] in Arterial blood 24 mmol/L [facility] Oxygen/Inspired gas setting [Volume Fraction] Ventilator [facility] ID Date Data Source [id number] 04/06/2019 03:19:08 PM [facility] Value Range Interpretation Code Description Data Mellissa rce(s) Supporting Document(s) History and Physical [facility] ELNDWx1tZwJBSjBi35/EHCsbIBFci1TeKRhaOJg6UMbnHHOiL6ChPMR3dK3jTTU3EMhSWgKhZZzmMuAp lbm [file] [place]/0MCw87etgC27B9eIkOdQQlmGDPjC+7pBqN2hMV+XzSMUEKbcxCgKR1TZg74Oqr9S5s7pt4kXkZ92 [file] ICAgICAgICAgICAgICAgICAgICAgICAgICAgICAgIC AgICAgICAgICAgICAgICAgICAgICAgICANCiAgICAgICAgICAgICAgICAgICAgICAgICAgICAgICAgIC AgICAgICAgICAgICAgICAgICAgICAgICAgICAgICAgICAgICAgICAgICAgICAgICAgICAgICAgICAgIC AgICAgICANCiAgICAgICAgICAgICAgICAgICAgICAg ICAgICAgICAgICAgICAgICAgICAgICAgICAgICAgICAgICAgICAgICAgICAgICAgICAgICAgICAgICAg ICAgICAgICAgICAgICAgICANCiAgICAgICAgICAgICAgICAgICAgICAgICAgICAgICAgICAgICAgICAg ICAgICAgICAgICAgICAgICAgICAgICAgICAgICAgIC AgICAgICAgICAgICAgICAgICAgICAgICAgICANCiAgICAgICAgICAgICAgICAgICAgICAgICAgICAgIC AgICAgICAgICAgICAgICAgICAgICAgICAgICAgICAgICAgICAgICAgICAgICAgICAgICAgICAgICAgIC AgICAgICAgICANCiAgICAgICAgICAgICAgICAgICAg ICAgICAgICAgICAgICAgICAgICAgICAgICAgICAgICAgICAgICAgICAgICAgICAgICAgICAgICAgICAg ICAgICAgICAgICAgICAgICAgICANCiAgICAgICAgICAgICAgICAgICAgICAgICAgICAgICAgICAgICAg ICAgICAgICAgICAgICAgICAgICAgICAgICAgICAgIC AgICAgICAgICAgICAgICAgICAgICAgICAgICAgICANCiAgICAgICAgICAgICAgICAgICAgICAgICAgIC AgICAgICAgICAgICAgICAgICAgICAgICAgICAgICAgICAgICAgICAgICAgICAgICAgICAgICAgICAgIC AgICAgICAgICAgICANCiAgICAgICAgICAgICAgICAg ICAgICAgICAgICAgICAgICAgICAgICAgICAgICAgICAgICAgICAgICAgICAgICAgICAgICAgICAgICAg ICAgICAgICAgICAgICAgICAgICAgICANCiAgICAgICAgICAgICAgICAgICAgICAgICAgICAgICAgICAg ICAgICAgICAgICAgICAgICAgICAgICAgICAgICAgIC AgICAgICAgICAgICAgICAgICAgICAgICAgICAgICAgICANCjw/fCKmB0idzOLjjtR7C0xgYe9LSb9ALE 1zu4ItCCWrQVojfgAqRcgTGkCiPYZgZpvWTsz5EHxeAR9LeSJjF0QpU4MzFVhiXQ2ENDBhPNZxzTCjDL UcTXJcYjG7FGPwDXbtTX9LtDUvIHcfFLJgKSYhKqQf UHQvBCLpNRUtZTZrOLKSCMFbJIVzEiCrHHrvLD7Nh5UtrWT1MCl+Po5UZQ4wg2MjENomXKVbIP7arx4U IMnIPmGtI7JgelU0GDRsRPMwOa2PICEtESCzmGGrGWRlPCUEHgHnZ6AfmH02RGPAXe1+DQplbmRvYmoN JdNhCGOcv6OoTVt3UO8GVBLzDJw9sDPmKJBWGOM2WL AympvtLCbxl0MfYMshTZLjXMEmFAHjCaRhMkYsSFHpLRcsFWBGFLeTYrOmK6Bvt5EnZkM5BMEeTdQcKJ qpQTBhUpZ2YD56wCbqFZ0DHJLaCLWhPF32MCAoGCAcBc2IDc0PUfJhGW4rlm3DWiDbRCMoUmuQPgz1SI xqAM3IjZQvW4EtjAKyn6uZFeSwU1MKGKP8TZAhGq8Y EKDjHzSpRSCpYYeeRM5pRCTtVTXImFihvoI3AK3XFH2babBmEZ0UNmOfDr4pJu5AGdGyW6NyH1WqHTBw HOVZMTegGG7RUIrjVQ0eNS0Uu2HNmRHkiA5psl9EPBWrCPRoFhismf2UEypyS7C1kDaxTTAzTqFqRNMR SNjiZM1RXMVuJEK7QHMcCPJzKFWCKuGaF77bIN0YA7 Hzz25aMmT3PILgLkCuRUqdGE26hRchjrIckMUkaZfeNN6ZGg9+DQplbmRvYmoNCnhyZWYNCjAgMzMNCj QjSCQwOYLqHVYuNxQ0DaOmSg5QUKWiYBRxDBGcBhFlAQXeCXJfOBtoMILeQNR8MWRuDVMaTLNjQC0EKw FwIKXaWycpTCEkLCNsZFDcql7OENVjWEObXJV7LfBt DFLxKBNvJNmpHRNoIFW4UGi5BBRuOPKoHI7CObOmFNKhTROuQZNkFVKyJKZeph1HXBXrYXNoRMJoDAKb ZBQwZRXnGPdzIIPrHVG1CxE5LQPgHAApMA2DYbOiCJXkVOH0GHMyDXYyRJUmmm6FCETxOPHiXJv1IPTe TBBgGERhSVkoSQToASL1ITurTEYpBMJmQS9PEmKaSO FiPKTjNXEuFFZzXHQyhq8MNCTsBVPfVDvlDsWtUGYxVFIsQUayTPYkKYH3MWIkYWOrFCFfFF5LSeXvHH KyKuYoRYUvRQAaJPYlwv1RWGZnJKTaNYB5WSTdTRExCHZlQPudFHEgBOYfKUfgMVTrQFMvTG9ETrMaCT VxKxZ3NULdRDFfPDCjiu7CBOUcWQHmTHW1ZbCuOVJk HWPfYNilNGAnTJToMNCeGFUaESDdOD0JZeDbDOXeCoYsYAGcXBQhRTBdtg2YWFQuVIQkKqBeTAFaOWIi DYNuMFgxJCQmSRAnQwPnLZKbGMEzLW6AAuBdQZQnQbK0MMDpEDDqDGOgzb6LSJYaIKKhCMCvKYIxJSGq MXNsKRfiHBEiRTS3WZsiKINkUHMmAU4MCvLxVDNaPq UrPdPnMPNoGAFrns2IVOOmPQVaNEGdNEQoBMMpQQMhHZviBMZmIOC6FJQ7CMNiYLVcLV9GOsEaGITjPb wqYIsyVSQxFYAgzm2GXYEwHLJaAcY9DABoGYDgBMGnJAlcPGCaRIE3XNP8ZBCvNVMwYA4GRkEoTTsiLC AIEim1PFenF7g6CRPiRf9PC9Rbv5CmZjFwJHYANHfs WY3qhpXpCRNqUg8ZY9jAAqftOlGaPKC6ARQ0HRAnQZItUqSrG4R2FYL2F7H7WLT4DQ8yPQW0SXO1PGp5 MKfzDCYoGiO6GwFnJxT2InErGrlcElaaJhAmCR5LWk5NAzC7UUW0hDZwCx9ULlj9WrHBZdYrXC2UHFt= ID Date Data Source [id number] 04/06/2019 02:23:29 PM [facility] CT ANGIOGRAPHY THORAX [id number] RESULTI nterpreted by:Shree Shafer MDINDICATION: Rule out pulmonary embolism.TECHNIQUE: CT Pulmonary arteriogram (CTPA) with contrast. 5 mm and 1.25 mm thick sections were made using helical technique from lung apices through adrenal glands. Intravenous contrast was administered. Automated dose lowering techniques and/or adjustment according to patient size were utilized for this exam.COMPARISON: None available.FINDINGS: Chest Wall/Bones: There are multilevel degenerative changes of the thoracic spine. There are no suspicious lytic or blastic lesions. There is stimulator battery pack implanted within the subcutaneous fat of the left upper thorax.Mediastinum and Pulmonary Margaret: There are multiple enlarged mediastinal nodes. A bank representative AP window node measures 1.3 cm. Subcarinal node measures 1.5 cm Mildly enlarged left hilar nodes measure up to 1.1 cm.Pleura and Pericardium: There is no pleural or pericardial thickening or effusion.Heart and Great Vessels: There are no intraluminal filling defects within the main pulmonary artery, right/left pulmonary artery, lobar or segmental pulmonary arteries.The thoracic aorta is nonaneurysmal.Heart size is normal.Lungs and Airways: The airways are patent through at least the segmental level.There is mild centrilobular emphysema with biapical predominance.There are scattered patchy groundglass opacities involving the bilateral upper, mid, and lower lung zones.Upper Abdomen: Images through the upper abdomen reveal no acute pathology.IMPRESSION: 1. No evidence of PE through the segmental pulmonary arterial level. Small subsegmental PE cannot be entirely excluded.2. Diffuse groundglass opacities involving the upper, mid, and lower lung zones, as can be seen in the setting of pulmonary edema, and with diffuse infectious/inflammatory processes to include multifocal pneumonia.3. Mediastinal and left hilar adenopathy which may be present on an infectious/inflammatory/reactive versus neoplastic basis.4. EmphysemaThis document has been electronically signed by Shree Shafer MD on 04/06/2019 2:21 PM Name Value Range Interpretation Code Description Data Mellissa rce(s) Supporting Document(s) ID Date Data Source [id number] 04/13/2019 11:17:14 AM [facility] Cmnt XXX-Imp : Microorganism XXX Cult : No Legionella pneumophila isolated Name Value Range Interpretation Code Description Data Mellissa rce(s) Supporting Document(s) ID Date Data Source [id number] 04/08/2019 11:17:41 AM [facility] Cmnt XXX-Imp : Gram Stn XXX : 1W BC'S Seen.1FloraMicroorganism XXX Cult : Normal serenity Name Value Range Interpretation Code Description Data Mellissa rce(s) Supporting Document(s) ID Date Data Source [id number] 04/06/2019 01:09:00 PM [facility] Cmnt XXX-Imp : Microorganism XXX Cult : Urine NEGATIVE for L. pneumophila serogroup 1 antigen by immunochromatographic assay. This test does not detect infections due to other L. pneumophila serogroups or to other Legionella species. Name Value Range Interpretation Code Description Data Mellissa rce(s) Supporting Document(s) ID Date Data Source [id number] 04/06/2019 12:09:41 PM [facility] Name Value Range Interpretation Code Description Data Mellissa rce(s) Supporting Document(s) [facility] RGRCYk6bOiTDCoQsm4RaExInPXAhQR0jvzw7X9A2zROlE7UqmGDgf2ceL7IdA0CzKKNzEMSEZU3PhFRx jb2 [file] uerAR1/Ambulatory Nurse+X2bS/SV/j8BcgvCM/SHO3Rvk4KG+U88K OvWk61/vjr+SfHP/6+07Y//opgQm305jAbXSFDc1/q0tFX3+5RaiUv1DC9+8/7nKCh0hh+muuYn/v7N7 qd7c/9bTmN+3N/cfheSJtk173py51AyT8+PZpA/nJ1j6D0+rkeJP2F9GNbPvED93m/U7Fj+XcmdujFh+ +rn31f/sy1i7wmcAC8asiPucjewugj8UNlPbsf9/at o7JEzwzsPUiShMLvGD/4lkTdMzvvMs8ScS+l2IOUrtsNrIEOdV//9LKdkko7x4jTyV3s+jfKr J5rhTqmiWRr5Pikd4Ccdo2Coz6/XSk2z6wxar1/q5luVQ3957qztcKc55NPaLj6sw7n/S3otAmoqLV/P W4kQ8h7KnJ59/zOh+gcnKDdSI3T4kBlmu+P4A+UD5Y Fy+BiUn66fTywgGS1y75g10do0A503cUZnZ3txd8P8yIoD89Nh5yft/6gXB0428+kDIR28EQ3jJ9AUlG +EL8UvzCz8M+c9/mqKq/JXmq2q/SXzS0mV9P4q4Lm3zfS27PA3F8mY+nQ59ZQT+Aw521AKxoGXC38svR 9/Gqc08Hy1kPmc7B+0xig32www+6WljYH4Wc48uviN Db8//uWlvN45LG+uOzOi7/a4v+s8yXp4YDcFpwD1PO5KVfV9O9m11a7xGc91mi0n7jz6D+Xn/gh72zsV hbDE7xIt7faG9r/86M70qDvEWrT+WR4mR0WLoD8zZgE/pXLUZ+WlTaUAMeudbdzMu89Cu9K+UnuUvnq3 Bi3LqcD98Q5R7GnJ/mOOkjHAG319/igpjxhoVa38d5 b8Vf4e/ENtU76uy9y+Pe7h0Xx6s1kDitp6k/TZ2huAt2nDJpXbt6afC+82yjEeKX+V2+biI4wlkrEaBQ xa6J8X+qb913XiNnwf9XuXU+Rd3v8CC6Wo/jlg6wEe24c/5te6x9QyBA6c+Tb60mKpZmgfzW+U3+eFDn 0Keg248shyiv/v80J/GXS7Y3zpr2/7c+3npdjPO2jF svKprtYE9jnlepQcBI/M7N442a5+T0Bek3x7hVbJXeFM7zftucEsf7n8kHfe46Szr+40ncx7Dxdvrl5s cJBpC8EjhVIom0zc+5NfT6ng0ZKbPYh/fp8Hu9/n/g83A2q51lN26vp2w/vrY6tcp/f5sSt/1VV+8htd 5Se/aFNVI82hrceE9u8Y/kqTCZW/8gJC2e9922T3B2 5QHN2WudlKx9pxa905o9JyXd5NAaC4500ay/FXvih/JR+Je3Djkc0tSoprrVIc4al72genc/vB3nF/+3 3e7/3mN3q/60Dy415H8/t5Pa4X3S6zXqSz6LAj56xs3N05mw04rchNZT/z/cL0vn703/1gx/vBrvyVtp W/idfvtEg9m9G1aq0HT/fhKG+01lu5OC7mtOyVsaEr jeP73E3cylFor9M2XxSf8eseYtyd46WQ9G3f4jiZ7RQ7nq91cAYo/KKpGlzt2a2paoEZN730yle1YB2d e9zt/ziz2JGiAva8x2/m4zl7+NbzzF/i05oOcc4riXLa48++eqchf/ztpknEJ7/x/uFk303NqEgW73Ry azFXWGFF3CkcAUB+4HkqoT2vo9Pk3vGDW09D/tzf9z nxe0WLKD9gO28l7wsqr0E/1iYnR334uecwr9Ra+9LDF83Q7NoDV30zetE0xj4M9CVb5hqsoWWsvyff0K 9d+sq0vb/6s8+rJ/u6+cm+rt7oC+0S1oa9Ih+8MB6t+71KX+aoG4i2zx99XdV//cm6+fYzD/xhk4slpJ I53Scva1ohdDxa0j1/3/lAoiB9ybcO0dmOt3ry707E Rxv+bvi74e+Gvxv+ier06v1nVR/bk58y27u8YK0jlbXtqwK2Dw/4kicN6ey7NfJGN/mrgfeDA/mr8XQc Z+D4A+TV2tE4RWlZ+PD5BrkA+b2/w+79HQZ/Df4a/IW+GtBXA/nlJYq95i3L9zhu8fq+eyB/NSxQHii/ mxMR1APIKepyPlyCaQ2Khq6Nsk47ehJ6/ablm31Qen fr8S6lC/nN5wy/msaQbn2r+B1/h9/xd/pVwuL1VK7SGsV+KP0VbaD++6iE5nXmrI/K9f1G0/i0639y38 /S89f6Cnve6eYU2uk+tox25D6tVolFmBc7uy2HB6kJv9/4yV56q3F+Ii0lbpTNd12mE0bw2QGhZB/+2n uU3uiAqF8T2L3V0k6cs6op5U5+E9bjOQ19vc7aUb2n x/9xrR7h78el83Pp3REyaLduoa7u7h72g8q75Fx0ycYDc+8Zl9yH6+/y2Cz4xMGt/eAYgfJAOdrvmLie waAxpGheD26jOeUz5Nns9yTBcZ2n+6uR31/lNsobfn+/VxmB/qpameaqUL2BYvrRyM05TtK+oCE79VK6 wRH3+4sI98RO6pfH3e5ZzE0zqK721T8tKJl5Mxg8Xv 9r6Re8RFjXycJ5HL5fT9wEzlJ+zoXyjfL7/giaq83Z94S1vonZ0sg0uIdSG8Oa/i7c33W/ddpIF2dmTo h/pa+oNxw6VqAbyY6Y7+/C+Js2MlLxRrICjD5u++Y3xr7P+8ErKLl14TuV3ezZc1eSpLy1/K5tkgoIZw hHfVb+SaPm164I8TqJwR957H7skS8NtV8OyC1VgN4E iV8H3KrNeKX8NcjBC1F6y1P7i/EMlAfKA+WF2ZCpS+UL5Rvl+5MwqcJMK9ZjV0usify57X5L6/Z48wyh 76+a5sse/dxVfvRzV/kUd7fB6A6IkcI58CetNisk8tpkhjgBhqTt75xA4/cqoe+dqaidM01e+6t3G+WG ckP5/G9n9L2EphStJ+gt3P3Ormmwg/OCnwEiXb03at tMiq6Rvt/7Db/1Ofx+Txh+9WT4HY/C7/nt2Qr7OwkvzA8BynLI1C0+S3zikxGmU5Xh/jnabb/RUJ/bfV 6Idr9/DnzfHu1+Xxf4/irw/EN3ng4g/P4+Dwa+x7397owS3/dm0e/2UuSZ6AFiG7ddBEh7ZSgkc8g//f ZX0e/4G/7Mm4UKmom04RnbD/r+SvWtn+3ImohwO9N8 PjnRdX/qYIkC80vbhy0oHHgg+bScesc87S/IGj8n0t5+k2Z9Y8jIMhS/9X6wf+ytPy9wLbrtV1DhjsDm YmbLW0n2LtmUX1brZey/kQpdde17wkKSSp/74fpnI62fGDh06bU/H9MU2c/3nSntzYXdZ2++spwB+rm/ wj7qlbNhCa6Q1yil35lY/Of05YSh+BRYo95Tt28+Cl 6E9LmxlkN9LaJn7A3PO9LO/B76x3k0rsO00eu5lSVLM1k0+34/4t5YH7Pkt0Zfb3G7r36W3UtMK5/ExH g07/GncQt0OsY7cuL+F3Lbrxd87/gbE+REjUbnuXzw6nCh8taIOt/bC+Vov3Oj/OqNwPdXsW4+Npah3F B+5lfqZUeoRW6d4zxSa8VRdzwL4z0RdL+KD1LheV+U f10lFC492Kf+do908w98ym94e7gVdotR36dV86hYxyocLpxdwi2mS2kK3DGuCy/Wzh3U4ModwzPuu+dz 7+53FhSdyu2aH1/N5+rn+Vx/p/TVVHl/sI3y+fk92F7t0j9wcBhXpxwQW+9G93PMdbL+LD7sNlKf+98p fZXb9/l32n3/O+2+/59585iDm+3ZpmSR463Uz/rod1 [file] [employer]/avyO0Lvt31xUNgPEkAxhSSgVYZYZbLk4S/cTzFnM/0RDPvDBdN6J0UzJ+Dt6uvH2oVz33p0tXVf6M [file] QpQUwmNgDz5Qvq0He+I2N2TRnu8jBLeJVdVbC2RAYzslfArd5LG2PlLW1mfBIBVxun0qpv7p9Emwm/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 Name Value Range Interpretation Code Description Data Mellissa rce(s) Supporting Document(s) ID Date Data Source [id number] 04/07/2019 01:17:20 PM [facility] Cmnt XXX-Imp : Microorganism XXX Cult : NO Methicillin resistant Staphylococcus aureus isolated Name Value Range Interpretation Code Description Data Mellissa rce(s) Supporting Document(s) ID Date Data Source [id number] 04/06/2019 12:56:22 PM [facility] Name Value Range Interpretation Code Description Data Mellissa rce(s) Supporting Document(s) Natriuretic peptide.B prohormone N-Terminal [Mass/volu me] in Serum or Plasma 792 pg/mL <[address] [facility] ID Date Data Source [id number] 04/06/2019 12:56:22 PM [facility] Name Value Range Interpretation Code Description Data Mellissa rce(s) Supporting Document(s) Troponin T.cardiac [Mass/volume] in Serum or Plasma <0.01 [facility] ID Date Data Source [id number] 04/06/2019 12:52:56 PM [facility] Name Value Range Interpretation Code Description Data Mellissa rce(s) Supporting Document(s) HIV 1+2 Ab+HIV1 p24 Ag [Presence] in Serum or Plasma by Immu noassay Non Reactive [facility] Negative for HIV-1 p24 antigenand HIV-1/ HIV-2 antibodies. Nolaboratory evidence of HIVinfection. ID Date Data Source [id number] 04/06/2019 12:28:21 PM [facility] Name Value Range Interpretation Code Description Data Mellissa rce(s) Supporting Document(s) Lactate [Moles/volume] in Serum or Plasma 1.2 mmol/l 0.5-2.2 [facility] ID Date Data Source [id number] 04/11/2019 12:23:48 PM [facility] Service Cmnt XXX-Imp : L HANDMicroorgani sm XXX Cult : No growth (qualifier value) Name Value Range Interpretation Code Description Data Mellissa rce(s) Supporting Document(s) ID Date Data Source [id number] 04/11/2019 12:23:48 PM [facility] Service Cmnt XXX-Imp : L HANDMicroorgani sm XXX Cult : No growth (qualifier value) Name Value Range Interpretation Code Description Data Mellissa rce(s) Supporting Document(s) ID Date Data Source [id number] 04/06/2019 10:19:39 AM [facility] Name Value Range Interpretation Code Description Data Mellissa rce(s) Supporting Document(s) Progress Note [facility] [id number] lbm [file] [id number] ID Date Data Source [id number] 04/06/2019 09:45:01 AM [facility] Name Value Range Interpretation Code Description Data Mellissa rce(s) Supporting Document(s) Glucose [Mass/volume] in Capillary blood by Glucometer 114 mg/dL 70- 140 [facility] ID Date Data Source [id number] 04/06/2019 09:18:04 AM [facility] XR CHEST FRONTAL ONLY [id number] RESULTI nterpreted by:CIERRA StacyROCEDURE INFORMATION: Exam: XR Chest, 1 View Exam date and time: 04/06/2019 8:50 AM Age: 48 years old Clinical indication: Other: De-saturation TECHNIQUE: Imaging protocol: XR of the chest Views: 1 view. COMPARISON: No relevant prior studies available. FINDINGS: Lungs: There is a relatively poor inspiration on this exam crowding markings in the lungs. Pleural space: Unremarkable. No pleural effusion. No pneumothorax. Heart/Mediastinum: The heart is enlarged. Vasculature: There is an increase in the vascular pattern consistent with moderate congestive failure. Bones/joints: Unremarkable. IMPRESSION: 1. There is an increase in the vascular pattern consistent with moderate congestive failure. 2. There is a relatively poor inspiration on this exam crowding markings in the lungs. THIS DOCUMENT HAS BEEN ELECTRONICALLY SIGNED BY SIMI COYLE MDThis document has been electronically signed by Simi Coyle MD on 04/06/2019 9:17 AM Name Value Range Interpretation Code Description Data Mellissa rce(s) Supporting Document(s) ID Date Data Source [id number] 04/06/2019 10:19:57 AM [facility] Name Value Range Interpretation Code Description Data Mellissa rce(s) Supporting Document(s) Albumin [Mass/volume] in Serum or Plasma by Bromocresol green (BCG) dye binding method 3.4 g/dL 3.5-5.2 [facility] Bilirubin.total [Mass/volume] in Serum or Plasma 0.3 mg/dL <1.2 [facility] Calcium [Mass/volume] in Serum or Plasma 8.6 mg/dL 8.6-10.0 [facility] Chloride [Moles/volume] in Serum or Plasma 93 mmol/L 98-[address] [facility] Creatinine [Mass/volume] in Serum or Plasma 0.50 mg/dL 0.50-0.90 [facility] Glucose [Mass/volume] in Serum or Plasma 101 mg/dL 70-140 [facility] Alkaline phosphatase [Enzymatic activity/volume] in Serum or Plasma 78 U/L 35-104 [facility] Potassium [Moles/volume] in Serum or Plasma 3.8 mmol/L 3.4-5.1 [facility] Protein [Mass/volume] in Serum or Plasma 5.9 g/dL 6.4-8.[address] [facility] Sodium [Moles/volume] in Serum or Plasma 129 mmol/L 136-[address] [facility] Aspartate aminotransferase [Enzymatic activity/volume] in Serum or Plasma 25 U/L <32 [facility] Urea nitrogen [Mass/volume] in Serum or Plasma 8 mg/dL 6-20 [facility] Osmolality of Serum or Plasma by calculation 267 mosm/kg 275-[address] [facility] Creatinine/Urea nitrogen [Mass Ratio] in Serum or Plasma 15 [facility] Bicarbonate [Moles/volume] in Serum 23 mmol/L 22-29 [facility] Alanine aminotransferase [Enzymatic activity/volume] in Seru m or Plasma 10 U/L <33 [facility] Anion gap 3 in Serum or Plasma 13 mmol/L 8-15 [facility] Albumin/Globulin [Mass Ratio] in Serum or Plasma 1.4 [facility] Glomerular filtration rate/1.73 sq M pre dicted among non-blacks [Volume Rate/Area] in Serum or Plasma by Creatinine-based formula (MDRD) >[address] [facility] Glomerular filtration rate/1.73 sq M pre dicted among blacks [Volume Rate/Area] in Serum or Plasma by Creatinine-based formula (MDRD) >60 [facility] ID Date Data Source [id number] 04/06/2019 01:17:02 PM [facility] Name Value Range Interpretation Code Description Data Mellissa rce(s) Supporting Document(s) Magnesium [Mass/volume] in Serum or Plasma 1.9 mg/dL 1.6-2.6 [facility] ID Date Data Source [id number] 04/06/2019 01:17:02 PM [facility] Name Value Range Interpretation Code Description Data Mellissa rce(s) Supporting Document(s) Phosphate [Mass/volume] in Serum or Plasma 3.2 mg/dL 2.5-4.5 [facility] ID Date Data Source [id number] 04/06/2019 09:30:48 AM [facility] Name Value Range Interpretation Code Description Data Mellissa rce(s) Supporting Document(s) Leukocytes [#/volume] in Blood by Automated count 17.6 10*3/uL 4-[address] [facility] Erythrocytes [#/volume] in Blood by Automated count 4.19 10*6/uL 4.1- 5.3 [facility] Hemoglobin [Mass/volume] in Blood 11.3 g/dL 11.5-15.[address] [facility] Hematocrit [Volume Fraction] of Blood by Automated count 33.8 % 3 6-[address] [facility] Erythrocyte mean corpuscular volume [Entitic volume] by Auto mated count 80.7 fL 80-96 [facility] Erythrocyte mean corpuscular hemoglobin [Entitic mass] by Automated count 27.0 pg 27-33 [facility] Erythrocyte mean corpuscular hemoglobin concentration [Mass/volume] by Automated count 33.5 g/dL 32.0-36.0 [facility] Erythrocyte distribution width [Ratio] by Automated count 16.8 % 11.5-14.[address] [facility] Platelets [#/volume] in Blood by Automated count 314 10*3/uL 150-400 [facility] Differential cell count method - Blood [facility] Neutrophils/100 leukocytes in Blood by Automated count 86 % [facility] Lymphocytes/100 leukocytes in Blood by Automated count 10 % [facility] Monocytes/100 leukocytes in Blood by Automated count 3 % [facility] Eosinophils/100 leukocytes in Blood by Automated count 0 % [facility] Basophils/100 leukocytes in Blood by Automated count 1 % [facility] Neutrophils [#/volume] in Blood by Automated count 15.29 10*3/uL 1.8- 7.[address] [facility] Lymphocytes [#/volume] in Blood by Automated count 1.69 10*3/uL 1.2-[address] [facility] Monocytes [#/volume] in Blood by Automated count 0.55 10*3/uL 0-0.8 [facility] Eosinophils [#/volume] in Blood by Automated count 0.00 10*3/uL 0-0.5 [facility] Basophils [#/volume] in Blood by Automated count 0.10 10*3/uL 0-0.2 [facility] Nucleated erythrocytes/100 leukocytes [Ratio] in Blood by Automated count 0 /100{WBCs} 0-0 [facility] ID Date Data Source [id number] 04/06/2019 08:57:37 AM [facility] Name Value Range Interpretation Code Description Data Mellissa rce(s) Supporting Document(s) Progress Note [facility] [id number] [facility] [file] DQo= ID Date Data Source [id number] 04/10/2019 06:06:00 PM [facility] CYTOPATHOLOGY REPORTName: NEREYDA COLÓN MMRN: [id number] Number: [id number] Date: 04/06/2019 00:00Received Date: 04/07/2019 10:20Physician(s): ED,DEFAULT TEST BASHIR ANTUNEZ Copy To:NABIL THAKKAR VIMALKMAOKarimeanaya(s) ReceivedA: LUNG, BRONCHIAL LAVAGE, LEFT MIDDLE LOBE, THINPREP WITH DIFFERENTIALCELL COUNTClinical History:Diffuse ground glass infiltrate. Acute hypoxia.DiagnosisLUNG, BRONCHIAL LAVAGE, LEFT MIDDLE LOBE, THINPREP WITH DIFFERENTIAL CELLCOUNT: NO EVIDENCE OF MALIGNANCYComment/cjs/calReviewing Cytotech: EMIGDIO Dow(ASCP) (IAC)CELESTE Rodriguez M.D.Electronically Signed By Niurka Palacios M.D. 04/10/2019 18:06:11The attending pathologist named above attests that he/she has personallyreviewed the relevant preparation(s) for the specimen(s) and rendered thefinal diagnosis. Microscopic DescriptionThe specimen is composed of macrophages, few multinucleated histiocytesand neutrophils. Differential cell count: neutrophils 62%, monocytes 36%,eosinophils 2%. No acid fast bacilli are seen on the AFB stain./cjsGross Vivhgskmtma44 ml cloudy, red fluid with red and white mucous received: Specimenprocessed by centrifugation: 1 pull apart slide prepared for Diff Quikstain, 1 ThinPrep slide prepared for Pap stain, 1 ThinPrep slide preparedfor acid fast stain.This report may include one or more immunohistochemical stain results thatuse analyte specific reagents. All posi tive and negative controls havebeen reviewed by the attending pathologist and are satisfactory. The testswere developed and their performance characteristics determined by [facility] Pathololgy department. They have not been cleared or approved by [place] Food and Drug Administration. The FDA has determined that suchclearance or approval is not necessary. Name Value Range Interpretation Code Description Data Mellissa rce(s) Supporting Document(s) ID Date Data Source [id number] 03/18/2019 12:00:00 AM EST [facility] Pérez Olvera DO Patient Name: LEO COLÓN [facility] Date of : 1970[place] [address] Date of Exam: 03/18/2019#: Fax: [phone] EXAM: MAMMO SCREENING WITH CADCLINICAL INFORMATION: Screening.Based on the personal and family history information your patient suppliedat the time of imaging, her lifetime risk of breast cancer estimated by theTyrer-Cuzick model is 10.8%. Given that this patient has less than 20% TCrisk score, no further medical management is currently recommended at thistime.Your patient's personal and/or family history of cancer submitted at thetime of imaging is suggestive of a hereditary cancer syndrome. She meetsthe criteria for genetic testing established by [facility] and [place] [employer] guidelines. She should pursue arisk assessment with a hereditary cancer specialist which may includetesting based on these criteria. The benefits and limitations of genetictesting would be discussed, including potential changes to medicalmanagement based on the results. Your patient declined myRisk genetictesting at this time.Digital screening (2D) mammography was performed bilaterally in the CC andMLO projections. Additionally, breast tomosynthesis (3D mammography) wasperformed bilaterally in the CC and MLO projections. Today's exam wascompared to the prior exam(s).By history, the patient has no complaints of a palpable breast abnormalityor other significant breast complaints.The patient can not remember.The breasts are unchanged in size and shape. There are no carlos-soft tissuedensities or spiculated masses. There is no internal a rchitecturaldistortion. There are no suspicious carlos-calcific clusters. Skinthickening or nipple retraction is not present.The Volpara volumetric breast density category is B, there are scatteredareas of fibroglandular density.IMPRESSION:BI-RADS Category 1- Negative mammogram. There is no evidence of malignantalteration of the breasts. Followup examination recommended in one year.This mammogram was read with the assistance of Thang MENCHACA, an FDAapproved computer aided detection system for mammography.Negative x-ray reports should not delay surgical consultation if a dominantor clinically alves spicious mass is present.Not all breast cancers can be identified by mammography. Therefore, werecommend that you continue to perform regular breast self-examination andphysical examination and then promptly contact your physician of anyconcerns or changes.Adenosis and dense breasts may obscure an underlying neoplasm.ZEN Ivan/Jennifer you for referring NEREYDA COLÓN to our office. Electronically Signed - JAMES RODRIGUEZ DO 03/18/19 16:10 Name Value Range Interpretation Code Description Data Mellissa rce(s) Supporting Document(s) Procedure Social History Code Duration Value Status Description Data Source(s ) Alcohol intake 02/26/2020 12:00:00 AM EST Current drinker of al cohol (finding) completed Current drinker of alcohol (finding) [facility] Tobacco use and exposure 02/26/2020 12:00:00 AM EST Never used co mpleted Never used [facility] Cigarette pack-years 02/26/2020 12:00:00 AM EST UNK completed [facility] Cigarettes smoked current (pack per day) - Reported 02/26/20 12:00:00 AM EST UNK completed [facility] Smoking 02/26/2020 12:00:00 AM EST Current every day smoker co mpleted Current every day smoker [facility] Alcohol intake 02/22/2020 12:00:00 AM EST Current drinker of al cohol (finding) completed Current drinker of alcohol (finding) [facility] Alcohol intake 12/22/2019 12:00:00 AM EDT Current drinker of al cohol (finding) completed Current drinker of alcohol (finding) [facility] Alcohol intake 2019 12:00:00 AM EDT Current drinker of al cohol (finding) completed Current drinker of alcohol (finding) [facility] Alcohol intake 10/23/2019 12:00:00 AM EDT Current drinker of al cohol (finding) completed Current drinker of alcohol (finding) [facility] Cigarette pack-years 10/23/2019 12:00:00 AM EDT UNK completed [facility] Cigarettes smoked current (pack per day) - Reported 10/23/19 12:00:00 AM EDT UNK completed [facility] Smoking 10/23/2019 12:00:00 AM EDT Current some day smoker com pleted Current some day smoker [facility] Alcohol intake 10/21/2019 12:00:00 AM EDT Current drinker of reta cohol (finding) completed Current drinker of alcohol (finding) [facility] Alcohol intake 06/08/2019 12:00:00 AM EST Current drinker of reta ibrahimol (finding) completed Current drinker of alcohol (finding) [facility] Cigarette pack-years 06/08/2019 12:00:00 AM EST UNK completed [facility] Cigarettes smoked current (pack per day) - Reported 06/08/19 12:00:00 AM EST UNK completed [facility] Smoking 06/08/2019 12:00:00 AM EST Current some day smoker com pleted Current some day smoker [facility] Alcohol intake 06/03/2019 12:00:00 AM EST Current drinker of reta cohol (finding) completed Current drinker of alcohol (finding) [facility] Cigarette pack-years 06/03/2019 12:00:00 AM EST UNK completed [facility] Cigarettes smoked current (pack per day) - Reported 06/03/19 12:00:00 AM EST UNK completed [facility] Smoking 06/03/2019 12:00:00 AM EST Current some day smoker com pleted Current some day smoker [facility] Alcohol intake 05/15/2019 12:00:00 AM EST Current drinker of al cohol (finding) completed Current drinker of alcohol (finding) [facility] Cigarette pack-years 05/15/2019 12:00:00 AM EST UNK completed [facility] Cigarettes smoked current (pack per day) - Reported 05/15/19 12:00:00 AM EST UNK completed [facility] Smoking 05/15/2019 12:00:00 AM EST Current some day smoker com pleted Current some day smoker [facility] Alcohol intake 05/14/2019 12:00:00 AM EST Current drinker of al cohol (finding) completed Current drinker of alcohol (finding) [facility] Cigarette pack-years 05/14/2019 12:00:00 AM EST UNK completed [facility] Cigarettes smoked current (pack per day) - Reported 05/14/19 12:00:00 AM EST UNK completed [facility] Smoking 05/14/2019 12:00:00 AM EST Current some day smoker com pleted Current some day smoker [facility] Alcohol intake 04/09/2019 12:00:00 AM EST Current drinker of al cohol (finding) completed Current drinker of alcohol (finding) [facility] Cigarette pack-years 04/09/2019 12:00:00 AM EST UNK [facility] Cigarettes smoked current (pack per day) - Reported 04/09/19 12:00:00 AM EST UNK completed [facility] Smoking 04/09/2019 12:00:00 AM EST Current some day smoker com pleted Current some day smoker [facility] Vital Signs ID Date Data Source UNK Name Value Range Interpretation Code Description Data Source(s) Body mass index (BMI) [Ratio] 34.3 kg/m2 34.3 k g/m2 [facility] Heart rate 79 /min 79 /min [facility] ([facility] Diastolic blood pressure 66 mm[Hg] 66 mm[Hg] [facility] ([facility] Systolic blood pressure 118 mm[Hg] 118 mm[Hg] M [facility] ([facility] Body weight 170.00 [lb_av] 170.00 [lb_av] [facility] ([facility] Body height 59 [in_i] 59 [in_i] [facility] ([facility] 4'11" Body weight 66.679 kg 66.679 kg [facility] ([facility] ) Body mass index (BMI) [Ratio] 30.7 kg/m2 30.7 k g/m2 [facility] ([facility]) Body weight 147.00 [lb_av] 147.00 [lb_av] [facility] ([facility]) Body height 58 [in_i] 58 [in_i] [facility] ([facility]) 4'10" Oxygen saturation in Arterial blood by Pulse oximetry 95 % 95 % [facility] ([facility]) Heart rate 85 /min 85 /min [facility] (Health system) Diastolic blood pressure 70 mm[Hg] 70 mm[Hg] [facility] Systolic blood pressure 102 mm[Hg] 102 mm[Hg] [facility] ID Date Data Source [id number] 02/28/2020 09:24:31 PM [facility] Value Range Interpretation Code Description Data Source(s) WEIGHT RECORDED 165 lb 165 lb [facility] Body height Measured 58.66 in 58.66 in [facility] ID Date Data Source [id number] 03/30/2020 03:00:42 PM [facility] Value Range Interpretation Code Description Data Source(s) WEIGHT RECORDED 165 lb 165 lb [facility] Body height Measured 58.66 in 58.66 in [facility] ID Date Data Source [id number] [facility] Interpretation Code Description Data Source(s) WEIGHT RECORDED 160 lb 160 lb [facility] Body height Measured 58.66 in 58.66 in [facility] ID Date Data Source [id number] 12/[facility] Value Range Interpretation Code Description Data Source(s) WEIGHT RECORDED 158.4 lb 158.4 lb [facility] Body height Measured 58.66 in 58.66 in [facility] ID Date Data Source [id number] 11/20/2019 [facility]:21[facility] Value Range Interpretation Code Description Data Source(s) WEIGHT RECORDED 158 lb 158 lb [facility] Body height Measured 59 in 59 in [facility] WEIGHT RECORDED 158.4 lb 158.4 lb [facility] Body height Measured 58.66 in 58.66 in [facility] ID Date Data Source [id number] 06/08/2019 02:17:02 PM [facility] Name Value Range Interpretation Code Description Data Source(s) WEIGHT RECORDED 150 lb 150 lb [facility] Body height Measured 59 in 59 in [facility] ID Date Data Source [id number] 05/20/2019 02:12:01 PM [facility] Name Value Range Interpretation Code Description Data Source(s) WEIGHT RECORDED 148 lb 148 lb [facility] Body height Measured 59 in 59 in [facility] ID Date Data Source [id number] 06/03/2019 12:47:00 PM [facility] Name Value Range Interpretation Code Description Data Source(s) WEIGHT RECORDED 154 lb 154 lb [facility] Body height Measured 59 in 59 in [facility] ID Date Data Source [id number] 09/03/2019 10:59:48 AM [facility] Name Value Range Interpretation Code Description Data Source(s) WEIGHT RECORDED 148.8 lb 148.8 lb [facility] Body height Measured 59 in 59 in [facility] Patient Treatment Plan of Care Planned Activity Planned Date Details Description Data Source (s) Morphine Sulfate 30 MG Extended Release Oral Tablet 04/12/19 12:00:00 AM [facility] Cyclobenzaprine hydrochloride 5 MG Oral Tablet 04/12/2020 12:00:00 AM [facility] oxcarbazepine 150 MG Oral Tablet 04/06/2020 12:00:00 AM [facility] gabapentin 600 MG Oral Tablet 03/31/2020 12:00:00 AM [facility] Morphine Sulfate 30 MG Extended Release Oral Tablet 03/15/20 12:00:00 AM [facility] Oxycodone Hydrochloride 5 MG Oral Tablet 02/16/2020 12:00:00 AM [facility] Morphine Sulfate 30 MG Extended Release Oral Tablet 02/16/20 12:00:00 AM [facility] Albuterol Sulfate HFA 108 (90 Base) MCG/ ACT Inhalation Aerosol Solution (PROVENTIL HFA) 12/22/2019 12:00:00 AM [facility] 60 ACTUAT Budesonide 0.08 MG/ACTUAT / fo rmoterol fumarate 0.0045 MG/ACTUAT Metered Dose Inhaler 12/22/2019 12:00:00 AM [facility] Oxycodone Hydrochloride 5 MG Oral Tablet 12/17/2019 12:00:00 AM [facility] Morphine Sulfate 30 MG Extended Release Oral Tablet 12/17/19 12:00:00 AM [facility] Oxycodone Hydrochloride 5 MG Oral Tablet 11/21/2019 12:00:00 AM [facility] Morphine Sulfate 30 MG Extended Release Oral Tablet 11/21/19 12:00:00 AM [facility] Prednisone 10 MG Oral Tablet 10/28/2019 12:00:00 AM [facility] 60 ACTUAT Budesonide 0.08 MG/ACTUAT / fo rmoterol fumarate 0.0045 MG/ACTUAT Metered Dose Inhaler 10/28/2019 12:00:00 AM [facility] Sulfamethoxazole 800 MG / Trimethoprim 160 MG Oral Tab let 10/28/2019 12:00:[address] [facility] Prednisone 10 MG Oral Tablet 10/28/2019 12:00:00 AM [facility] Albuterol 0.833 MG/ML / Ipratropium [place] 0.167 MG/M L Inhalant Solution 10/23/2019 08:04:41 PM [facility] methylPREDNISolone sodium succinate (SOLU-MEDROL) 125 MG injection 10/23/2019 08:04:[address] [facility] tizanidine 4 MG Oral Capsule 10/23/2019 12:00:00 AM [facility] Morphine Sulfate 30 MG Extended Release Oral Tablet 10/22/19 12:00:00 AM [facility] Oxycodone Hydrochloride 5 MG Oral Tablet 10/22/2019 12:00:00 AM [facility] gabapentin 600 MG Oral Tablet 09/21/2019 12:00:00 AM [facility] Oxycodone Hydrochloride 5 MG Oral Tablet 09/21/2019 12:00:00 AM [facility] Morphine Sulfate 30 MG Extended Release Oral Tablet 09/21/19 12:00:00 AM [facility] oxcarbazepine 150 MG Oral Tablet 09/14/2019 12:00:00 AM [facility] Oxycodone Hydrochloride 5 MG Oral Tablet 05/20/2019 12:00:00 AM [facility] Morphine Sulfate 30 MG Extended Release Oral Tablet 05/20/19 12:00:00 AM [facility] medical marijuana 05/13/2019 12:00:00 AM [facility] Morphine Sulfate 30 MG Extended Release Oral Tablet 04/23/19 12:00:00 AM [facility] Oxycodone Hydrochloride 5 MG Oral Tablet 04/23/2019 12:00:00 AM [facility] Varenicline Tartrate 0.5 MG X 11 & 1 MG X 42 Oral (BARBIE NTIX STARTING MONTH ) 04/09/2019 12:00:00 AM [facility] 24 HR Nicotine 0.292 MG/HR Transdermal Patch 04/09/2019 12:00:00 AM [facility] POLYETHYLENE GLYCOL 3350 142 MG/ML Oral Solution 04/07/2019 09:00:0 0 AM [facility] Oxycodone Hydrochloride 5 MG Oral Tablet 03/26/2019 12:00:00 AM [facility] Morphine Sulfate 30 MG Extended Release Oral Tablet 03/26/20 12:00:00 AM [facility] oxcarbazepine 150 MG Oral Tablet 03/21/2019 12:00:00 AM [facility] gabapentin 600 MG Oral Tablet 11/19/2018 12:00:00 AM [facility] Ibuprofen 800 MG Oral Tablet 05/16/2018 12:00:00 AM [facility] tizanidine 4 MG Oral Capsule 08/11/2017 12:00:00 AM [facility] Albuterol Sulfate HFA 108 (90 Base) MCG/ ACT Inhalation Aerosol Solution (PROVENTIL HFA) [facility] Prednisone [address] [facility] Amlodipine [address] [facility] Prednisone [address] [facility]
[2020-05-04 00:29] LABS: BASO # 0.1 10^3/uL (0.0-0.2); BASO % 0.3 % (0.0-1.0); EOS % 0.1 % (0.0-3.0); HEMATOCRIT 33.4 % (36.0-47.0); HEMOGLOBIN 10.9 g/dl (12.0-15.5); LYMPH # 2.3 10^3/uL (1.5-5.0); LYMPH % 7.9 % (24.0-44.0); MEAN CORPUSCULAR HEMOGLOBIN 25.3 pg (27.0-33.0); MEAN CORPUSCULAR HGB CONC 32.6 g/dl (32.0-36.5); MEAN CORPUSCULAR VOLUME 77.5 fl (80.0-96.0); MONO # 1.4 10^3/uL (0.0-0.8); MONO % 4.9 % (0.0-5.0); NEUTROPHILS # 25.1 10^3/uL (1.5-8.5); NEUTROPHILS % 85.8 % (36.0-66.0); PLATELET COUNT, AUTOMATED 347 10^3/uL (150-450); RED BLOOD COUNT 4.31 10^6/uL (4.00-5.40); WHITE BLOOD COUNT 29.2 10^3/uL (4.0-10.0)
[2020-05-04] MEDS ORDERED: ACETAMINOPHEN TAB 650MG DOSE (2X325MG) PO ONE (00:30)
[2020-05-04] MEDS: IPRATROPIUM 0.5MG/ALBUTEROL 2.5MG INH SOL UD 3ML (DUONEB) NEB PRN (00:36)
[2020-05-04 00:48] LABS: ABG BASE EXCESS -0.9 (-2.0-2.0); ABG HCO3 22.7 MEQ/L (22.0-26.0); ABG O2 SATURATION 92.5 % (95.0-99.0); ABG PARTIAL PRESSURE CO2 34.1 mmHg (35.0-45.0); ABG PARTIAL PRESSURE O2 61.9 mmHg (75.0-100.0); ABG STANDARD HCO3 23.6 MEQ/L (22.0-26.0); ABG TOTAL CO2 23.8 MEQ/L (22.0-29.0); ABG pH (ARTERIAL) 7.442 UNITS (7.350-7.450)
[2020-05-04 00:59] LABS: BLOOD UREA NITROGEN 7 MG/DL (7-18); GLUCOSE, FASTING 116 MG/DL (70-100)
[2020-05-04 01:00] LABS: ALBUMIN 3.4 GM/DL (3.2-5.2); ALT/SGPT 28 U/L (12-78); BILIRUBIN,DIRECT 0.2 MG/DL (0.0-0.2); BILIRUBIN,TOTAL 0.3 MG/DL (0.2-1.0); CALCIUM LEVEL 8.9 MG/DL (8.5-10.1); CARBON DIOXIDE LEVEL 26 MEQ/L (21-32); CHLORIDE LEVEL 95 MEQ/L (98-107); CK-MB VALUE MASS < 1.0 NG/ML (<3.6); CPK CREATINE PHOSPHOKINASE 102 U/L (26-192); GLOMERULAR FILTRATION RATE > 60.0 (>51); MB/CK RELATIVE INDEX 0.98 (< OR =4); NT-PRO BNP 803 PG/ML (<125); POTASSIUM SERUM 4.6 MEQ/L (3.5-5.1); SODIUM LEVEL 129 MEQ/L (136-145); TOTAL PROTEIN 6.8 GM/DL (6.4-8.2); TROPONIN I < 0.02 NG/ML (< 0.10)
[2020-05-04 01:08] LABS: RSV AMPLIFICATION NEGATIVE (NEGATIVE)
--- NOTE | 2020-05-04 01:54 | REPVR ---
PROCEDURE INFORMATION: Exam: XR Chest, 1 View Exam date and time: 05/04/20 (1:22am) Age: 49 years old Clinical indication: Cough and dyspnea TECHNIQUE: Imaging protocol: Portable CXR Views: 1 view COMPARISON: Portable CXR of 01/12/20 FINDINGS: Comparison is made with a portable CXR done on 01/12/20. Streaky and hazy opacities again seen, bilaterally. New infiltrate at the right lung base. No significant pleural effusions. Neurostimulator device (perhaps) again seen, with electronic pack projecting over the left lung apex and leads extending toward the neck. Large patient size, with prominent breast shadows. IMPRESSION: Persistent bilateral hazy and streaky parenchymal opacities, with no significant improvement appreciated. No significant pleural effusions. Electronically signed by: Ebonie Florence On 05/04/2020 01:53:40 AM
[2020-05-04] MEDS ORDERED: AZITHROMYCIN 250MG TABLET PO ONE (02:15)
[2020-05-04] MEDS ORDERED: cefTRIAXone SOD 1 GM in D5W MINI-BAG PLUS 50 ML IV ONE (02:15)
[2020-05-04] MEDS ORDERED: BACITAB PO (03:00)
[2020-05-04] MEDS ORDERED: methylPREDNISolone 125MG 2ML VIAL IV ONE (03:00)
[2020-05-04] MEDS ORDERED: ALPR0.5T3 PO (03:00)
[2020-05-04] MEDS ORDERED: NS 1,000 ML IV ONE (03:00)
[2020-05-04] MEDS ORDERED: CYCL5TAB PO (03:00)
--- OUTSIDE RECORDS SUMMARY | 2020-05-04 03:01 | CCD ---
Author Author [facility] Organization [facility] Address Unknown Phone Unavailable Care Team Providers Care Sausage Machine Operator Name Role Phone CARMEN LOCK MD Unavailable [...] LOCK MD Unavailable Unavailable Sammie, L Jen CIGARETTE MAKING MACHINE HOPPER FEEDER Unavailable Unavailable Sammie, L Jen CIGARETTE MAKING MACHINE HOPPER FEEDER Unavailable Unavailable Sammie, L Jen CIGARETTE MAKING MACHINE HOPPER FEEDER Unavailable Unavailable Sammie, L Jen CIGARETTE MAKING MACHINE HOPPER FEEDER Unavailable Unavailable Sammie, L Jen CIGARETTE MAKING MACHINE HOPPER FEEDER Unavailable Unavailable Sammie, L Jen CIGARETTE MAKING MACHINE HOPPER FEEDER Unavailable Unavailable Sammie, L Jen CIGARETTE MAKING MACHINE HOPPER FEEDER Unavailable Unavailable Sammie, L Jen CIGARETTE MAKING MACHINE HOPPER FEEDER Unavailable Unavailable Sammie, L Jne CIGARETTE MAKING MACHINE HOPPER FEEDER Unavailable Unavailable Sammie, L Jen CIGARETTE MAKING MACHINE HOPPER FEEDER Unavailable Unavailable Sammie, L Jen CIGARETTE MAKING MACHINE HOPPER FEEDER Unavailable Unavailable Sammie, L Jen CIGARETTE MAKING MACHINE HOPPER FEEDER Unavailable Unavailable Sammie, L Jen CIGARETTE MAKING MACHINE HOPPER FEEDER Unavailable Unavailable Sammie, L Jen CIGARETTE MAKING MACHINE HOPPER FEEDER Unavailable Unavailable Sammie, L Jen CIGARETTE MAKING MACHINE HOPPER FEEDER Unavailable Unavailable Sammie, L Jen CIGARETTE MAKING MACHINE HOPPER FEEDER Unavailable Unavailable Sammie, L Jen CIGARETTE MAKING MACHINE HOPPER FEEDER Unavailable Unavailable Sammie, L Jen CIGARETTE MAKING MACHINE HOPPER FEEDER Unavailable Unavailable Sammie, L Jen CIGARETTE MAKING MACHINE HOPPER FEEDER Unavailable Unavailable Sammie, L Jen CIGARETTE MAKING MACHINE HOPPER FEEDER Unavailable Unavailable Sammie, L Jen CIGARETTE MAKING MACHINE HOPPER FEEDER Unavailable Unavailable Sammie, L Jen CIGARETTE MAKING MACHINE HOPPER FEEDER Unavailable Unavailable Sammie, L Jen CIGARETTE MAKING MACHINE HOPPER FEEDER Unavailable Unavailable Sammie, L Jen CIGARETTE MAKING MACHINE HOPPER FEEDER Unavailable Unavailable FEDORS, MARIO LICENSED LAND SURVEYOR Unavailable Unavailable FEDORS, MARIO LICENSED LAND SURVEYOR Unavailable Unavailable FEDORS, MARIO LICENSED LAND SURVEYOR Unavailable Unavailable FEDORS, MARIO LICENSED LAND SURVEYOR Unavailable Unavailable FEDORS, MARIO LICENSED LAND SURVEYOR Unavailable Unavailable FEDORS, MARIO LICENSED LAND SURVEYOR Unavailable Unavailable FEDORS, MARIO LICENSED LAND SURVEYOR Unavailable Unavailable FEDORS, MARIO LICENSED LAND SURVEYOR Unavailable Unavailable FEDORS, MARIO LICENSED LAND SURVEYOR Unavailable Unavailable FEDORS, MARIO LICENSED LAND SURVEYOR Unavailable Unavailable FEDORS, MARIO LICENSED LAND SURVEYOR Unavailable Unavailable FEDORS, MARIO LICENSED LAND SURVEYOR Unavailable Unavailable FEDORS, MARIO LICENSED LAND SURVEYOR Unavailable Unavailable FEDORS, MARIO LICENSED LAND SURVEYOR Unavailable Unavailable FEDORS, MARIO LICENSED LAND SURVEYOR Unavailable Unavailable FEDORS, MARIO LICENSED LAND SURVEYOR Unavailable Unavailable FEDORS, MARIO LICENSED LAND SURVEYOR Unavailable Unavailable FEDORS, MARIO LICENSED LAND SURVEYOR Unavailable Unavailable FEDORS, MARIO LICENSED LAND SURVEYOR Unavailable Unavailable FEDORS, MARIO LICENSED LAND SURVEYOR Unavailable Unavailable Fons, M Mary CIGARETTE MAKING MACHINE HOPPER FEEDER Unavailable Unavailable Fons, M Mary CIGARETTE MAKING MACHINE HOPPER FEEDER Unavailable Unavailable Fons, M Mary CIGARETTE MAKING MACHINE HOPPER FEEDER Unavailable Unavailable Fons, M Mary CIGARETTE MAKING MACHINE HOPPER FEEDER Unavailable Unavailable Fons, M Mary CIGARETTE MAKING MACHINE HOPPER FEEDER Unavailable Unavailable Fons, M Mary CIGARETTE MAKING MACHINE HOPPER FEEDER Unavailable Unavailable Fons, M Mary CIGARETTE MAKING MACHINE HOPPER FEEDER Unavailable Unavailable Fons, M Mary CIGARETTE MAKING MACHINE HOPPER FEEDER Unavailable Unavailable Fons, M Mary CIGARETTE MAKING MACHINE HOPPER FEEDER Unavailable Unavailable Fons, M Mary CIGARETTE MAKING MACHINE HOPPER FEEDER Unavailable Unavailable Fons, M Mary CIGARETTE MAKING MACHINE HOPPER FEEDER Unavailable Unavailable Fons, M Mary CIGARETTE MAKING MACHINE HOPPER FEEDER Unavailable Unavailable Fons, M Mary CIGARETTE MAKING MACHINE HOPPER FEEDER Unavailable Unavailable Fons, M Mary CIGARETTE MAKING MACHINE HOPPER FEEDER Unavailable Unavailable Fons, M Mary CIGARETTE MAKING MACHINE HOPPER FEEDER Unavailable Unavailable Fons, M Mary CIGARETTE MAKING MACHINE HOPPER FEEDER Unavailable Unavailable Fons, M Mary CIGARETTE MAKING MACHINE HOPPER FEEDER Unavailable Unavailable Fons, M Mary CIGARETTE MAKING MACHINE HOPPER FEEDER Unavailable Unavailable Fons, M Mary CIGARETTE MAKING MACHINE HOPPER FEEDER Unavailable Unavailable Fons, M Mary CIGARETTE MAKING MACHINE HOPPER FEEDER Unavailable Unavailable Fons, M Mary CIGARETTE MAKING MACHINE HOPPER FEEDER Unavailable Unavailable Fons, M Mary CIGARETTE MAKING MACHINE HOPPER FEEDER Unavailable Unavailable Fons, M Mary CIGARETTE MAKING MACHINE HOPPER FEEDER Unavailable Unavailable Fons, M Mary CIGARETTE MAKING MACHINE HOPPER FEEDER Unavailable Unavailable Fons, M Mary CIGARETTE MAKING MACHINE HOPPER FEEDER Unavailable Unavailable Fons, M Mary CIGARETTE MAKING MACHINE HOPPER FEEDER Unavailable Unavailable Fons, M Mary CIGARETTE MAKING MACHINE HOPPER FEEDER Unavailable Unavailable Fons, M Mary CIGARETTE MAKING MACHINE HOPPER FEEDER Unavailable Unavailable Fons, M Mary CIGARETTE MAKING MACHINE HOPPER FEEDER Unavailable Unavailable Fons, M Mary CIGARETTE MAKING MACHINE HOPPER FEEDER Unavailable Unavailable Fons, M Mary CIGARETTE MAKING MACHINE HOPPER FEEDER Unavailable Unavailable Fons, M Mary CIGARETTE MAKING MACHINE HOPPER FEEDER Unavailable Unavailable Fons, M Mary CIGARETTE MAKING MACHINE HOPPER FEEDER Unavailable Unavailable Fons, M Mary CIGARETTE MAKING MACHINE HOPPER FEEDER Unavailable Unavailable Fons, M Mary CIGARETTE MAKING MACHINE HOPPER FEEDER Unavailable Unavailable Fons, M Mary CIGARETTE MAKING MACHINE HOPPER FEEDER Unavailable Unavailable Fons, M Mary CIGARETTE MAKING MACHINE HOPPER FEEDER Unavailable Unavailable Fons, M Mary CIGARETTE MAKING MACHINE HOPPER FEEDER Unavailable Unavailable Fons, M Mary CIGARETTE MAKING MACHINE HOPPER FEEDER Unavailable Unavailable Fons, M Mary CIGARETTE MAKING MACHINE HOPPER FEEDER Unavailable Unavailable Fons, M Mary CIGARETTE MAKING MACHINE HOPPER FEEDER Unavailable Unavailable Fons, M Mary CIGARETTE MAKING MACHINE HOPPER FEEDER Unavailable Unavailable Fons, M Mary CIGARETTE MAKING MACHINE HOPPER FEEDER Unavailable Unavailable Fons, M Mary CIGARETTE MAKING MACHINE HOPPER FEEDER Unavailable Unavailable Fons, M Mary CIGARETTE MAKING MACHINE HOPPER FEEDER Unavailable Unavailable Fons, M Mary CIGARETTE MAKING MACHINE HOPPER FEEDER Unavailable Unavailable Fons, M Mary CIGARETTE MAKING MACHINE HOPPER FEEDER Unavailable Unavailable Fons, M Mary CIGARETTE MAKING MACHINE HOPPER FEEDER Unavailable Unavailable Fons, M Mary CIGARETTE MAKING MACHINE HOPPER FEEDER Unavailable Unavailable Fons, M Mary CIGARETTE MAKING MACHINE HOPPER FEEDER Unavailable Unavailable Fons, M Mary CIGARETTE MAKING MACHINE HOPPER FEEDER Unavailable Unavailable Fons, M Mary CIGARETTE MAKING MACHINE HOPPER FEEDER Unavailable Unavailable Fons, M Mary CIGARETTE MAKING MACHINE HOPPER FEEDER Unavailable Unavailable Fons, M Mary CIGARETTE MAKING MACHINE HOPPER FEEDER Unavailable Unavailable CARMEN LOCK MD Unavailable Unavailable [...] Unavailable CARMEN LOCK MD Unavailable Unavailable CARMEN LCOK MD Unavailable Unavailable CARMEN LOCK MD Unavailable Unavailable CARMEN LOCK MD Unavailable Unavailable CARMEN LOCK MD Unavailable Unavailable CARMEN LOCK MD Unavailable Unavailable CARMEN LOCK MD Unavailable Unavailable CARMEN LOCK MD Unavailable Unavailable CARMEN LOCK MD Unavailable Unavailable CARMEN LOCK MD Unavailable Unavailable CARMEN LOCK MD Unavailable Unavailable CARMEN LOCK MD Unavailable Unavailable CARMEN LCOK MD Unavailable Unavailable CARMEN LOCK MD Unavailable [...] Unavailable Thakkar, Betsey MD Unavailable Unavailable Thakkar, Betesy MD Unavailable Unavailable Thakkar, Betsey MD Unavailable [...] Unavailable Tricia BENAVIDEZ MD Unavailable Unavailable Tricia BENAVDIEZ MD Unavailable Unavailable Tricia BENAVIDEZ MD Unavailable [...] Sarah Moid MD Unavailable Unavailable Gerry Lau MD Unavailable Unavailable Gerry Lau MD Unavailable Unavailable Gerry Lau MD Unavailable Unavailable Gerry Lau MD Unavailable Unavailable Gerry Lau MD Unavailable Unavailable Gerry Lau MD Unavailable Unavailable Gerry Lau MD Unavailable Unavailable Gerry Lau MD Unavailable Unavailable Felicita Randolph MD Unavailable Unavailable William Randolphjtech Unavailable Unavailable William [...] Unavailable STEPHANIE R ANTONIO DPM Unavailable Unavailable SETPHANIE R ANTONIO DPM Unavailable Unavailable STEPHANIE R ANTONIO DPM Unavailable Unavailable MAJTOÑO R ANTONIO DPM Unavailable Unavailable STEPHANIE R ANTONIO DPM Unavailable Unavailable STEPHANIE R ANTNOIO DPM Unavailable Unavailable Ольга ALMANZA MD Unavailable Unavailable Ольга ALMANZA MD Unavailable Unavailable Ольга ALMANZA MD Unavailable Unavailable Ольга ALMANZA MD Unavailable Unavailable Ольга ALMANZA MD Unavailable Unavailable Ольга ALMANZA MD Unavailable Unavailable Ольга ALMANZA MD Unavailable Unavailable ISHMAEL LEI [id number] Unavailable Unavailable OLIMPIA REED MD Unavailable Unavailable [...] OLIMPIA REED MD Unavailable Unavailable Ольга CASTLE [id number] Unavailable Unavailable Dodard, Pérez DO Unavailable Unavailable Dodard, Pérze DO Unavailable Unavailable Dodard, Pérez DO Unavailable [...] MELYNNE DEO MD Unavailable Unavailable MEHIC, FEHID LICENSED LAND SURVEYOR Unavailable Unavailable MEHIC, FEHID LICENSED LAND SURVEYOR Unavailable Unavailable MEHIC, FEHID LICENSED LAND SURVEYOR Unavailable Unavailable MEHIC, FEHID LICENSED LAND SURVEYOR Unavailable Unavailable MEHIC, FEHID LICENSED LAND SURVEYOR Unavailable Unavailable MEHIC, FEHID LICENSED LAND SURVEYOR Unavailable Unavailable MEHIC, FEHID LICENSED LAND SURVEYOR Unavailable Unavailable MEHIC, FEHID LICENSED LAND SURVEYOR Unavailable Unavailable MEHIC, FEHID LICENSED LAND SURVEYOR Unavailable Unavailable MEHIC, FEHID LICENSED LAND SURVEYOR Unavailable Unavailable MEHIC, FEHID LICENSED LAND SURVEYOR Unavailable Unavailable MEHIC, FEHID LICENSED LAND SURVEYOR Unavailable Unavailable MEHIC, FEHID LICENSED LAND SURVEYOR Unavailable Unavailable MEHIC, FEHID LICENSED LAND SURVEYOR Unavailable Unavailable MEHIC, FEHID LICENSED LAND SURVEYOR Unavailable Unavailable MEHIC, FEHID LICENSED LAND SURVEYOR Unavailable Unavailable MEHIC, FEHID LICENSED LAND SURVEYOR Unavailable Unavailable MEHIC, FEHID LICENSED LAND SURVEYOR Unavailable Unavailable MEHIC, FEHID LICENSED LAND SURVEYOR Unavailable Unavailable MEHIC, FEHID LICENSED LAND SURVEYOR Unavailable Unavailable MEHIC, FEHID LICENSED LAND SURVEYOR Unavailable Unavailable Re-disclosure Warning The records that [...] is protected by Article 27-F of the [facility] Public Health law. If you continue you may have access to information: Regarding HIV / AIDS; Provided by facilities licensed or operated by the [facility] Office of Mental Health; or Provided by the [facility] Office for People With Developmental Disabilities. If such information is present, then the following [facility] mandated warning applies: This information has [...] law may result in a fine or chcf sentence or both. A general authorization for the release of medical or other information is NOT sufficient authorization for further disc losure. Allergies and Adverse Reactions Type Description Substance Reaction Status Data Source(s ) Drug Class NO KNOWN ALLERGIES NO KNOWN ALLERGIES [facility] [place] Family History Family Member Name Family Member Gender Family Member Status Date o f Status Description Data Source(s) Unknown Male Problem [facility] ([facility] Unknown Unknown [facility] Unknown Unknown Problem [facility] ([facility], ) Unknown Unknown Problem [facility] ([facility] Encounters Encounter Providers Location Date Indications Data Source(s ) Outpatient Attender: ISHMAEL LEI [id number] 06/27/2020 12:0 0:00 AM [facility] Outpatient Attender: JANIA ROBISON NPReferrer: Ivon Lau MD [id number] 04/12/2020 12:00:00 AM [facility]ender[facility] ANTONIO BROWN [facility] Office 03/09 12:45:00 PM EST [facility] ([facility] Outpatient Attender: JANIA ROBISON LICENSED LAND SURVEYOR 04/05/2020 12:00:00 AM [facility] Outpatient Attender: ISHMAEL LEI [id number] 02/26/2020 12:00:00 AM EST - 02/26/2020 10:06:34 AM [facility] Outpatient Referrer: Ivon Lau MD 02/26/2020 12:00:0 0 AM EST Other nonspecific abnormal finding of lung [facility] Other nonspecific abnormal finding of [facility] Outpatient Attender: Anthony LOCK MDReferrer: Ivon Lau MD [id number] 02/22/2020 12:00:00 AM EST - 02/22/2020 10:59:31 AM EST Myalgia, other site [facility] Myalgia, other site Outpatient Attender: ISHMAEL LEI [id number] 12/22/2019 12:00:00 AM EDT - 12/22/2019 04:06:25 PM EDT Systemic involvement of connective tissu e, unspecified [facility] Systemic involvement of connective tissu e, unspecified Outpatient Attender: MARIO GAMEZ NPReferrer: MARIO GAMEZ NP 12/22/2019 12:00:00 AM EDT - 12/23/2019 12:00:00 AM EDT [facility] Outpatient 12/22/2019 12:00:00 AM [facility] Outpatient 12/02/2019 12:00:00 AM [facility] Outpatient Attender: MARIO GAMEZ NP 12/02/2019 12:00:00 A M [facility] Outpatient Attender: JANIA ROBISON NPReferrer: Ivon Lau MD 0 [id number] 11/20/2019 12:00:00 AM EDT Myalgia, other site [facility] Myalgia, other site Outpatient Attender: WILDA CASTLE [id number] 2019 12: 00:00 AM EDT telemed [facility] telemed [facility] Outpatient Attender: MARIO GAMEZ NPReferrer: MARIO GAMEZ NP 11/04/2019 12:00:00 AM [facility] Outpatient Attender: MARIO GAMEZ NP 11/04/2019 12:00:00 A M [facility] Outpatient 11/04/2019 12:00:00 AM [facility] Outpatient Attender: Jen PETER 11/03/2019 12:00:0 0 AM [facility] Inpatient Attender: TYRON MURPHYI MDAttender: BASHIR JOHNSONDAAttender: Russel Johns MDAttender: CLAUS ALMANZA MDAdmitter: Russel Johns MDReferrer: Russel Johns MD [id number] 10/23/2019 12:00:00 AM EDT - 10/28/2019 12:00:00 AM EDT Acute and chronic respiratory failure with hypoxia [facility] Acute and chronic respiratory failure wi th hypoxia Patient discharged. Outpatient Attender: Anthony LOCK MDReferrer: Ivon Lau MD [id number] 10/23/2019 12:00:00 AM EDT - 10/23/2019 03:16:43 PM EDT Myalgia, other site [facility] [place] Myalgia, other site Outpatient Attender: MARIO GAMEZ NP [id number] 10/21/2019 12: 00:00 AM EDT Other nonspecific abnormal finding of lung [facility] Other nonspecific abnormal finding of [facility]athy [facility] Outpatient Attender: Anthony LOCK MDReferrer: Ivon Lau MD [id number] 09/22/2019 12:00:[address] [facility] [place] Outpatient Attender: Mary Leyva FNPReferrer: Mary MCDANIEL-SJP.KRISTEL 08/13/2019 09:26:10 AM EDT - 08/13/2019 12:17:55 PM EDT [facility] Outpatient Attender: Mary Leyva FNPReferrer: Mary MCDANIEL-SJLurdesKRISTEL 08/13/2019 12:00:00 AM EDT - 08/13/2019 10:44:55 AM EDT [facility] Outpatient Attender: Mary MORALES-SJLurdesKRISTEL 0 12:00:00 AM EDT - 07/29/2019 09:38:48 AM EDT [facility] Outpatient Referrer: Felicita MORALES-SJRICHARD 09/2019 10:47:42 AM EDT [facility] Outpatient Attender: Felicita Whittenerrer: Stevie Randolph MD SJAnthony.KRISTEL-SJP.KRISTEL 06/25/2019 09:20:48 AM EDT - 06/25/2019 12:58:38 PM EDT [facility] Outpatient Attender: MARIO GAMEZ NP 06/25/2019 12:00:[address] [facility] Outpatient Attender: Felicita TIRADO.KRISTEL-SJP.KRISTEL 08/2019 12:00:00 AM EST - 06/11/2019 12:00:01 PM EST [facility] Outpatient Attender: MARIO GAMEZ NPAdmitter: MARIO GAMEZ NP [id number] 06/03/2019 12:00:00 AM EST - 06/03/2019 05:06:00 PM EST Chronic diastolic (congestive) heart failure [facility] Chronic diastolic (congestive) heart rahul lure Patient discharged. Outpatient Attender: MARIO GAMEZ NP [id number] 2019 12:00:00 AM EST - 05/15/2019 02:43:11 PM EST Acute respiratory failure with hypoxia [facility] Acute respiratory failure with hypoxia Outpatient Attender: MARIO GAMEZ NPReferrer: MARIO GAMEZ NP 05/15/2019 12:00:00 AM EST Acute respiratory failure with hypoxia [facility] Acute respiratory failure with hypoxia Outpatient Attender: WILDA CASTLE [id number] 05/14 12:00:00 AM EST - 05/14/2019 09:24:14 AM EST Other nonspecific abnormal finding of lung [facility] Other nonspecific abnormal finding of [facility] Outpatient Attender: WILDA CASTLE [id number] 05/13/2019 12:00:[address] [facility] [place] Outpatient Referrer: Pérez Olvera DO 05/01/2019 01:24:00 PM EST [facility] Outpatient Attender: AUGUSTO SINGH MDAdm itter: AUGUSTO SINGH MDReferrer: Anthony LOCK MD 04/09/2019 12:00:00 AM EST [facility] Referrer: Anthony LOCK MD 04/07/2019 12:00:00 AM ES [facility] Inpatient Attender: DEFAULT / GENE VANE / UNKNOWN PROVIDER ALIASES Attender: AUGUSTO SINGH MDAttender: OLIMPIA REED MDAttender: GIRISH DOYLE MDAttender: BASHIR JOHNSONDAAttender: NICOLLE BENAVIDEZ MDAttender: Betsey Thakkar MDAdmitter: NICOLLE BENAVIDEZ MDReferrer: Anthony LOCK MD [id number] 04/06 12:00:00 AM EST - 04/09/2019 01:32:00 PM EST Salmonella sepsis [facility]ital Salmonella sepsis Patient discharged. Outpatient Attender: Betsey Thakkar MDA dmitter: Betsey Thakkar MDReferrer: MIKY JIMÉNEZ 04/06/2019 12:00:00 AM EST AP1 [facility] AP1 Outpatient Referrer: Pérez Olvera DO 03/18/2019 01:48:00 PM EST [facility] Outpatient Referrer: Pérez Olvera DO 03/18/2019 01:30:00 PM EST [facility] Outpatient Referrer: Pérez Olvera DO 03/17/2019 09:11:00 AM EST [facility] Outpatient Attender: DEO Ervin/Morenita/Boyd aburto 03/16/2019 02:00:00 PM EST [facility] ([facility] Outpatient Referrer: Pérez Olvera [...] Three times daily for [address] [facility] [place] Morphine Sulfate 30 MG Extended Release Oral Tablet Morphine Sulfate ER 30 MG Oral Tablet Extended Release (MS CONTIN) Morphine Sulfate ER 30 MG Oral Tablet Extended Release (MS CONTIN) 04/12/2020 12:00:00 AM EST 30 mg Oral active Pain management contract agreementNeck pain on left side Take 1 tablet by mouth every 12 (twelve) hours , Max Daily Dose: [address] [facility] Pain management contract agreement Neck pain on [...] by mouth twice a d ay. [facility] gabapentin 600 MG Oral Tablet Gabapentin 600 MG Oral T ablet (NEURONTIN) Gabapentin 600 MG Oral Tablet (NEURONTIN) 03/31/2020 12:00:00 AM EST 1200 mg Oral active Neck pain on left side Ta ke 2 tablets by mouth Three times daily [facility] [place] Neck pain on left side 600 mg 03/31/2020 12:00:00 AM EST tablet 180 TAKE 2 TABLETS BY MOUTH THREE TIMES A DAY TAKE 2 TABLETS BY MOUTH THREE TIMES A DAY SOLD: 04/07/2020 [facility] 30 mg 03/17/2020 12:00:00 AM EST tablet extended release 60 TAKE ONE TABLET BY MOUTH EVERY 12 HOURS MAXIMUM DAILY DOSE = 60MG TAKE ONE TABLET BY MOUTH EVERY 12 HOURS MAXIMUM DAILY DOSE = 60MG SOLD: 03/19/2020 [facility] Morphine Sulfate 30 MG Extended Release Oral Tablet Morphine Sulfate ER 30 MG Oral Tablet Extended Release (MS CONTIN) Morphine Sulfate ER 30 MG Oral Tablet Extended Release (MS CONTIN) 03/15/2020 12:00:00 AM EST 30 mg Oral aborted Pain management contract agreementNeck pain on left side Take 1 tablet by mouth every 12 (twelve) hours , Max Daily Dose: [address] [facility] [place] Pain management contract agreement Neck pain on left side 20 mg 03/10/2020 12:00:00 AM EST capsule 60 TAKE ONE CAPSULE BY MOUTH TWICE A DAY TAKE ONE CAPSULE BY MOUTH TWICE A DAY SOLD: 03/11/2020 [facility] pantoprazole 40 MG Delayed Release Oral Tablet PANTOPRAZOLE SODIUM 03/10/2020 12:00:00 AM EST tablet,delayed release (DR/EC) 90 T ARCELIA ONE TABLET BY MOUTH EVERY DAY TAKE ONE TABLET BY MOUTH EVERY DAY SOLD: 03/11/2020 [facility] Alprazolam 0.5 MG Oral Tablet ALPRAZOLAM 03/10/2020 12:00:00 AM EST t ablet 120 TAKE ONE TABLET BY MOUTH FOUR TIMES A DAY MAXIMUM FRANNIE Y DOSE = 4 TABLETS TAKE ONE TABLET BY MOUTH FOUR TIMES A DAY MAXIMUM DAILY DOSE = 4 TABLETS SOLD: 03/11/2020 [facility] 40 mg 03/10/2020 12:00:00 AM EST tablet 90 TAKE ONE TABLET BY MOUTH EVERY DAY TAKE ONE TABLET BY MOUTH EVERY DAY SOLD: 03/11/2020 [facility] albuterol (PROVENTIL HFA) inhaler 2 puff 5243-3356-73 02/26/2020 08:45:00 AM EST 2 {puff} Inhalation active 2 pu ff, Inhalation, Once, Sat02/26/20 at 0845, For 1 dose
Shake the inhaler well before each spray.
[facility] Medication administered onsite 5 mg 02/17/2020 12:00:00 [...] , Max Daily Dose: [address] [facility] Neck pain on left side Oxycodone Hydrochloride 5 MG Oral Tablet oxyCODONE HCl 5 MG Oral Tablet (ROXICODONE) oxyCODONE HCl 5 MG Oral Tablet (ROXICODONE) 02/16/2020 12:00:00 AM EST 5 mg Oral aborted Neck pain on left side Take 1 tablet by mouth every 3 (three) hours as needed for Pain, Max Daily Dose: [address] [facility] [place] Neck pain on left side 20 mg [...] OR FOR SHORTNESS OF BREATH SOLD: 12/24/2019 [facility] Albuterol Sulfate HFA 108 (90 Base) MCG/ ACT Inhalation Aerosol Solution (PROVENTIL HFA) 8972-6598-73 12/22/2019 12:00:00 AM EDT 2 {puff} Inha lation active Wheezing Inhale 2 puffs i nto the lungs every 6 (six) hours as needed for Wheezing or Shortness of Breath [facility] Wheezing 60 ACTUAT Budesonide 0.08 MG/ACTUAT / fo rmoterol fumarate 0.0045 MG/ACTUAT Metered Dose Inhaler Budesonide-Formoterol Fumarate 80-4.5 MCG/ACT Inhalation Aerosol (SYMBICORT) Budesonide-Formoterol Fumarate 80-4.5 MC G/ACT Inhalation Aerosol (SYMBICORT) 12/22/2019 12:00:00 AM EDT 2 {puff} Inhalation active Wheezing Inhale 2 puffs into the lungs Two Times Daily [facility] [place] Wheezing 30 mg 12/21/2019 12:00:00 AM EDT [...] DAILY DOSE = 8 TABLETS SOLD: 12/21/2019 [facility] Oxycodone Hydrochloride 5 MG Oral Tablet oxyCODONE HCl 5 MG Oral Tablet (ROXICODONE) oxyCODONE HCl 5 MG Oral Tablet (ROXICODONE) 12/17/2019 12:00:00 AM EDT 5 mg Oral active Neck pain on left side Take 1 tablet by mouth every 3 (three) hours as needed for Pain, Max Daily Dose: [address] [facility] [place] Neck pain on left side Morphine Sulfate [...] , Max Daily Dose: [address] [facility] [place] Neck pain on left side 20 mg [...] TABLET BY MOUTH EVERY DAY SOLD: 01/19/2020 [facility] 40 mg 12/03/2019 12:00:00 AM EDT [...] Pain, Max Daily Dose: [address] [facility] [facility] [place] Neck pain on left side Morphine Sulfate 30 MG Extended Release Oral Tablet Morphine Sulfate ER 30 MG Oral Tablet Extended Release (MS CONTIN) Morphine Sulfate ER 30 MG Oral Tablet Extended Release (MS CONTIN) 11/21/2019 12:00:00 AM EDT 30 mg Oral active Myofascial pain syndrome Take 1 tablet by mouth every 12 (twelve) hours , Max Daily Dose: [address] [facility] [place] Myofascial pain syndrome 30 mg 11/20/2019 12:00:00 [...] For 27 doses
Take with food.
[facility] [place] Medication administered onsite Prednisone 10 MG Oral Tablet predniSONE 10 MG Oral Tab let (DELTASONE) predniSONE 10 MG Oral Tablet (DELTASONE) 10/28/2019 12:00:00 AM EDT aborted Take 4 tablets by mouth daily for 2wks then 3 tab daily for 2 weeks then 2 tab daily for [address] [facility] [place] Sulfamethoxazole 800 MG / Trimethoprim 1 60 MG Oral Tablet Sulfamethoxazole- Trimethoprim 800-160 MG Oral Tablet (Bactrim DS) Sulfamethoxazole-Trimethoprim 800-160 MG Oral Tablet (Bactrim DS) 10/28/2019 12:00:00 AM EDT 1 {tbl } Oral active Take 1 tablet by mouth 3 (th ree) times a week for [address] [facility] [place] Prednisone 10 MG Oral Tablet predniSONE 10 MG Oral Tab let (DELTASONE) predniSONE 10 MG Oral Tablet (DELTASONE) 10/28/2019 12:00:00 AM EDT aborted Take 4 tab for 2wks then 3 tab for 2 weeks then 2 tab for [address] [facility] [place] 60 ACTUAT Budesonide 0.08 MG/ACTUAT / fo rmoterol fumarate 0.0045 MG/ACTUAT Metered Dose Inhaler Budesonide-Formoterol Fumarate 80-4.5 MCG/ACT Inhalation Aerosol (SYMBICORT) Budesonide-Formoterol Fumarate 80-4.5 MC G/ACT Inhalation Aerosol (SYMBICORT) 10/28/2019 12:00:00 AM EDT 2 {puff} Inhalation aborted Inhale 2 puffs into the lungs Tw o Times Daily [facility] [place] azithromycin (ZITHROMAX) 500 mg in sodium chloride 0.9 % 250 mL (2 mg/mL) IVPB 10/27/2019 09:30:00 AM EDT 500 mg Intravenous active 500 mg, Intravenous, at 250 mL/hr, Every 24 hours, First dose on Sat10/27/19 at 0930, For [address] [facility] [place] Medication administered onsite Ceftriaxone 1000 MG Injection cefTRIAXone (ROCEPHIN) i nfusion 1 g (premix) cefTRIAXone (ROCEPHIN) infusion 1 g (premix) 10/27/2019 09:30:00 AM EDT 1 g Intravenous active 1 g, Intraven ous, at 100 mL/hr, Every 24 hours, First dose on Sat10/27/19 at 0930, For 5 days
Discouraged Uses: Empiric treatment of post-surgical meningitis (ceftazidime preferred)
[facility] [place] Medication administered onsite Oxycodone Hydrochloride 5 MG [...] require Pain Service consultation and approval.
[facility] [place] Medication administered onsite Prednisone 20 MG Oral Tablet predniSONE (DELTASONE) ta blet 60 mg predniSONE (DELTASONE) tablet 60 mg 10/25/2019 09:00:00 AM EDT 60 mg Oral aborted 60 mg, Oral, Daily Standard, First dose on Sat10/25/19 at 0900, For 30 days
Take with food.
[facility] [place] Medication administered onsite 120 ACTUAT Albuterol 0.1 MG/ACTUAT / Ipr atropium [place] 0.02 MG/ACTUAT Metered Dose Inhaler ipratropium-albuterol (COMBIVENT RESPIMAT) inhaler 1 puff ipratropium-albuterol (COMBIVENT RESPIMAT) inhaler 1 puff 10/24/2019 08:00:00 PM EDT 1 {puff} Inhalation active 1 pu ff, Inhalation, Every 6 hours, First dose on Sat10/24/19 at 2000, For [address] [facility] [place] Medication administered onsite heparin (porcine) 5000 UNIT/ML injection 5,000 Units [id number] 10/24/2019 05:00:00 PM EDT 5000 U Subcutaneous aborted 5,000 Units, Subcutaneous, Three Times Daily Standard, First dose (after last modification) on 10/24/19 at 1700, For [address] [facility] [place] Medication administered onsite methylPREDNISolone sodium succinate (SOLU-MEDROL) injection 60 mg [id number] 10/24/2019 09:45:00 AM EDT 60 mg Intravenous aborted 60 mg, Intravenous, Daily Standard, First dose on 10/24/19 at 0945, For [address] [facility] [place] Medication administered onsite Pravastatin Sodium 20 MG Oral Tablet pravastatin (PRAV ACHOL) tablet 40 mg pravastatin (PRAVACHOL) tablet 40 mg 10/24/2019 09:00:00 AM EDT 40 mg Oral active 40 mg, Oral, [place] Standard, First dose on 10/24/19 at 0900, For [address] [facility] [place] Medication administered onsite Fluoxetine 20 MG Oral Capsule fluoxetine (PROZAC) caps ule 20 mg fluoxetine (PROZAC) capsule 20 mg 10/24/2019 09:00:00 AM EDT 20 mg Oral active 20 mg, Oral, 2 Times Daily, First dose on 10/24/19 at 0900, For [address] [facility] [place] Medication administered onsite pantoprazole 40 MG Delayed Release Oral Tablet pantoprazole (PROTONIX) EC tablet 40 mg pantoprazole (PROTONIX) EC tablet 40 mg 10/24/2019 09:00:00 AM E DT 40 mg Oral active 40 mg, Ora l, Daily Standard, First dose on 10/24/19 at 0900, For 30 days
Do not crush or chew
[facility] [place] Medication administered onsite heparin (porcine) 5000 UNIT/ML injection 5,000 Units [id number] 10/24/2019 09:00:00 AM EDT 5000 U Subcutaneous aborted 5,000 Units, Subcutaneous, Three Times Daily Standard, First dose on 10/24/19 at 0900, For [address] [facility] [place] Medication administered onsite gabapentin 300 MG Oral Capsule gabapentin (NEURONTIN) capsule 900 mg gabapentin (NEURONTIN) capsule 900 mg 10/24/2019 09:00:00 AM EDT 900 mg Oral active 900 mg, Oral, Three Times D aily Standard, First dose (after last modification) on 10/24/19 at 0900, For [address] [facility] [place] Medication administered onsite oxcarbazepine 150 MG Oral Tablet OXcarbazepine (TRILEP VIET) tablet 450 mg OXcarbazepine (TRILEPTAL) tablet 450 mg 10/24/2019 09:00:00 AM EDT 450 mg Oral active 450 mg, Oral, 2 Times Daily, First dose on 10/24/19 at 0900, For [address] [facility] [place] Medication administered onsite potassium chloride (K-DUR) dissolvable tablet 40 mEq [id number] 10/24/2019 08:00:00 AM EDT 40 meq Oral completed 40 mEq, Oral, Once, 10/24/19 at 0800, For 1 dose
May be dissolved in water for patients with a G-Tube or unable to swallow. If concern for clogging G-Tube, may contact Pharmacy to switch formulation to a powder packet.
[facility] [place] Medication administered onsite Morphine Sulfate 30 MG Extended Release Oral Tablet morphine sulfate ER (MS CONTIN) 12 hr tablet 30 mg morphine sulfate ER (MS CONTIN) 12 hr tablet 30 mg 10/24/2019 04:00:00 AM EDT 30 mg Oral active 30 mg, Oral, Every 12 hours, First dose on 10/24/19 at 0400, For [address] [facility] [place] Medication administered onsite tizanidine 4 MG Oral Tablet tizanidine (ZANAFLEX) tabl et 4 mg tizanidine (ZANAFLEX) tablet 4 mg 10/24/2019 03:52:44 AM EDT 4 mg Oral completed 4 mg, Oral, Three Times Daily-PRN, Muscle spasms, Starting 10/24/19 at 0352, For [address] [facility] [place] Medication administered onsite Oxycodone Hydrochloride 5 MG [...] require Pain Service consultation and approval.
[facility] [place] Medication administered onsite 60 ACTUAT Budesonide 0.08 MG/ACTUAT / fo rmoterol fumarate 0.0045 MG/ACTUAT Metered Dose Inhaler budesonide-formoterol (SYMBICORT) 80-4.5 MCG/ACT inhaler 2 puff budesonide-formoterol (SYMBICORT) 80-4.5 MCG/ACT inhal er 2 puff 10/23/2019 11:45:00 PM EDT 2 {puff} Inhalation active 2 puff, Inhalation, 2 Times Daily, First dose on Sat10/23/19 at 2345, For 14 days
Shake well before using
[facility] [place] Medication administered onsite Hydrocortisone 50 MG/ML Injectable Solut ion hydrocortisone sodium succinate (SOLU-CORTEF) (PF) injection 50 mg hydrocortisone sodium succinate (SOLU-CO RTEF) (PF) injection 50 mg 10/23/2019 11:00:00 PM EDT 50 mg Intravenous aborted 50 mg, Intravenous, Every 6 hours, First dose on Sat10/23/19 at 2300, For [address] [facility] [place] Medication administered onsite Piperacillin 3000 MG / tazobactam 375 MG Injection piperacillin-tazobactam (ZOSYN) IVPB 3.375 g (premix) piperacillin-tazobactam (ZOSYN) IVPB 3.3 75 g (premix) 10/23/2019 10:30:00 PM EDT 3.375 g Intravenous abo rted 3.375 g, Intravenous, Administer over 4 Hours, Every 8 hours, First dose on Sat10/23/19 at 2230, For [address] [facility] [place] Medication administered onsite vancomycin (VANCOCIN) 1250 mg in NaCl 0.9 % 250 mL (premix) [id number] 10/23/2019 10:30:00 PM EDT 1250 mg Intravenous aborted 1,250 mg, Intravenous, Administer over 90 Minutes, Every 12 hours, First dose (after last reorder) on Sat10/23/19 at 2230, For [address] [facility] [place] Medication administered onsite Lorazepam 0.5 MG Oral Tablet LORazepam (ATIVAN) tablet 0.5 mg LORazepam (ATIVAN) tablet 0.5 mg 10/23/2019 10:15:00 PM EDT 0.5 mg Oral com pleted 0.5 mg, Oral, Once, Sat10/23/19 at 2215, For [address] [facility] [place] Medication administered onsite Albuterol 0.833 MG/ML / [...] unless NESHA is selected 'Yes' below.
[facility] [place] Medication administered onsite ropinirole 1 MG Oral Tablet ropinirole (REQUIP) tablet 1 mg ropinirole (REQUIP) tablet 1 mg 10/23/2019 10:00:00 PM EDT 1 mg Oral active 1 mg, Oral, Nightly, First dose on Sat10/23/19 at 2200, For [address] [facility] [place] Medication administered onsite Acetaminophen 10 MG/ML Injectable Soluti on acetaminophen (OFIRMEV) infusion 1,000 mg acetaminophen (OFIRMEV) infusion 1,000 mg 10/23/2019 08:45:00 PM EDT 1000 mg Intravenous completed 1,000 mg , Intravenous, Administer over 15 Minutes, Once, Sat10/23/19 at 2045, For 1 dose
Maximum dose 3 gm daily from all sources
[facility] [place] Medication administered onsite azithromycin (ZITHROMAX) injection 500 mg [id number] 10/23/2019 0 8:15:00 PM EDT 500 mg Intravenous completed 500 mg, Intravenous, Once, Sat10/23/19 at 2015, For [address] [facility] [place] Medication administered onsite 50 ML Magnesium Sulfate 40 MG/ML Injecti on magnesium sulfate infusion 2 g/50 mL (premix) magnesium sulfate infusion 2 g/50 mL (premix) 10/23/19 08:15:00 PM EDT 16 meq Intravenous completed 16 mEq, Intravenous, Once, Sat10/23/19 at 2014, For 1 dose
8 mEq = 1 g magnesium sulfate
[facility] [place] Medication administered onsite Ceftriaxone 1000 MG Injection cefTRIAXone (ROCEPHIN) i njection 1 g cefTRIAXone (ROCEPHIN) injection 1 g 10/23/2019 08:15:00 PM EDT 1 g Intraven ous completed 1 g, Intravenous, On ce, Sat10/23/19 at 2014, For 1 dose
Discouraged Uses: Empiric treatment of post-surgical meningitis (ceftazidime preferred)
[facility] [place] Medication administered onsite Albuterol 0.833 MG/ML / [...] of medication (3 mL per treatment.
[facility] [place] Medication administered onsite methylPREDNISolone sodium succinate (SOLU-MEDROL) injection 125 mg [id number] 10/23/2019 08:15:00 PM EDT 125 mg Intravenous completed 125 mg, Intravenous, Once, Sat10/23/19 at 2014, For [address] [facility] [place] Medication administered onsite Albuterol 0.833 MG/ML / Ipratropium Brom sonali 0.167 MG/ML Inhalant Solution ipratropium-albuterol (DUONEB) 0.5-2.5 (3) MG/3ML nebulizer solution ipratropium-albuterol (DUONEB) 0.5-2.5 (3) MG/3ML nebulizer solution 10/23/2019 08:04:41 PM EDT completed Starting Sat10/23/19 at 2004, For 1 dose
[place], [place] : cabinet override
[facility] [place] Medication administered onsite methylPREDNISolone sodium succinate (SOLU-MEDROL) 125 MG inj ection [id number] 10/23/2019 08:04:31 PM EDT completed Starting Sat10/23/19 at 2004, For 1 dose
[place], [place] : cabinet override
[facility] [place] Medication administered onsite 4 mg 10/23/2019 12:00:00 [...] an extra 4mg at night PRN. [facility] [place] 4 mg 10/23/2019 12:00:00 AM EDT capsule [...] , Max Daily Dose: [address] [facility] [place] Myofascial pain syndrome Oxycodone Hydrochloride 5 MG Oral Tablet oxyCODONE HCl 5 MG Oral Tablet (ROXICODONE) oxyCODONE HCl 5 MG Oral Tablet (ROXICODONE) 10/22/2019 12:00:00 AM EDT 5 mg Oral aborted Neck pain on left side Take 1 tablet by mouth every 3 (three) hours as needed for Pain, Max Daily Dose: [address] [facility] [place] Neck pain on left side 1,250 mcg [...] , Max Daily Dose: [address] [facility] [place] Myofascial pain syndrome gabapentin 600 MG Oral Tablet Gabapentin 600 MG Oral T ablet (NEURONTIN) Gabapentin 600 MG Oral Tablet (NEURONTIN) 09/21/2019 12:00:00 AM EDT 1200 mg Oral active Take 2 tablets by mo [facility] Three times daily [facility] [place] Oxycodone Hydrochloride 5 MG Oral Tablet oxyCODONE HCl 5 MG Oral Tablet (ROXICODONE) oxyCODONE HCl 5 MG Oral Tablet (ROXICODONE) 09/21/2019 12:00:00 AM EDT 5 mg Oral active Neck pain on left side Take 1 tablet by mouth every 3 (three) hours as needed for Pain, Max Daily Dose: [address] [facility] [place] Neck pain on left side 150 mg [...] TABLETS BY MOUTH TWICE A DAY [facility] [place] 150 mg 09/14/2019 12:00:00 AM EDT tablet [...] Sat06/03/19 at 1345, For [address] [facility] [place] Medication administered onsite 20 mg 06/03/2019 12:00:00 [...] , Max Daily Dose: [address] [facility] [place] Myofascial pain syndrome Oxycodone Hydrochloride 5 MG Oral Tablet oxyCODONE HCl 5 MG Oral Tablet (ROXICODONE) oxyCODONE HCl 5 MG Oral Tablet (ROXICODONE) 05/20/2019 12:00:00 AM EST 5 mg Oral active Neck pain on left side Take 1 tablet by mouth every 3 (three) hours as needed for Pain, Max Daily Dose: [address] [facility] [place] Neck pain on left side medical marijuana 05/13/2019 12:00:00 AM EST Oral completed Take by mouth every hour as needed [facility] [place] 1-0.05 % 05/12/2019 12:00:00 AM EST lotion 60 APPLY TO GROIN AREA TWO TIMES A DAY APPLY TO GROIN AREA TWO TIMES A DAY SOLD: 06/11/2019 [facility] 1-0.05 % 05/12/2019 12:00:00 AM EST lotion 60 APPLY TO GROIN AREA TWO TIMES A DAY APPLY TO GROIN AREA TWO TIMES A DAY SOLD: 05/13/2019 [facility] 1-0.05 % 05/12/2019 12:00:00 AM EST [...] DAILY DOSE = TWO TABLETS SOLD: 04/24/2019 [facility] Oxycodone Hydrochloride 5 MG Oral Tablet oxyCODONE HCl 5 MG Oral Tablet (ROXICODONE) oxyCODONE HCl 5 MG Oral Tablet (ROXICODONE) 04/23/2019 12:00:00 AM EST 5 mg Oral aborted Neck pain on left side Take 1 tablet by mouth every 3 (three) hours as needed for Pain, Max Daily Dose: [address] [facility] [place] Neck pain on left side Morphine Sulfate 30 MG Extended Release Oral Tablet Morphine Sulfate ER 30 MG Oral Tablet Extended Release (MS CONTIN) Morphine Sulfate ER 30 MG Oral Tablet Extended Release (MS CONTIN) 04/23/2019 12:00:00 AM EST 30 mg Oral aborted Myofascial pain syndrome Take 1 tablet b y mouth every 12 (twelve) hours , Max Daily Dose: [address] [facility] [place] Myofascial pain syndrome 20 mg 04/14/2019 12:00:00 AM EST capsule 60 TAKE ONE CAPSULE BY MOUTH TWICE A DAY TAKE ONE CAPSULE BY MOUTH TWICE A DAY SOLD: 04/15/2019 [facility] 1 mg 04/14/2019 12:00:00 AM EST [...] 1 patch onto the skin daily [facility] [place] Varenicline Tartrate 0.5 MG X 11 & 1 MG X 42 Oral (BARBIE NTIX STARTING MONTH ) [id number] 04/09/2019 12:00:00 AM EST active Take one 0.5 mg tablet PO daily for 3 days, then increase to one 0.5 mg tablet BID for 4 days, then increase to one [address] [facility] [place] 24 HR Nicotine 0.292 MG/HR Transdermal P atch nicotine (NICODERM CQ) 7 MG/24HR 1 patch nicotine (NICODERM CQ) 7 MG/24HR 1 patch 04/08/2019 09:00:00 AM EST 1 {patch} Transdermal active 1 patch, Transdermal, Administer over 24 Hours, Daily Standard, First dose on Sat04/08/19 at 0900, For [address] [facility] [place] Medication administered onsite Prednisone 20 MG Oral Tablet predniSONE (DELTASONE) ta blet 40 mg predniSONE (DELTASONE) tablet 40 mg 04/08/2019 09:00:00 AM EST 40 mg Oral aborted 40 mg, Oral, Daily Standard, First dose on Sat04/08/19 at 0900, For 7 days
Take with food.
[facility] [place] Medication administered onsite oxcarbazepine 150 MG Oral Tablet OXcarbazepine (TRILEP VIET) tablet 450 mg OXcarbazepine (TRILEPTAL) tablet 450 mg 04/07/2019 09:15:00 PM EST 450 mg Oral active 450 mg, Oral, 2 Times Daily, First dose on Sat04/07/19 at 2115, For [address] [facility] [place] Medication administered onsite pantoprazole 40 MG Delayed Release Oral Tablet pantoprazole (PROTONIX) EC tablet 40 mg pantoprazole (PROTONIX) EC tablet 40 mg 04/07/2019 09:00:[address] 40 mg Oral active 40 mg, Ora l, Daily Standard, First dose on Sat04/07/19 at 0900, For 30 days
Do not crush or chew
[facility] [place] Medication administered onsite Pravastatin Sodium 20 MG Oral Tablet pravastatin (PRAV ACHOL) tablet 40 mg pravastatin (PRAVACHOL) tablet 40 mg 04/07/2019 09:00:00 AM EST 40 mg Oral active 40 mg, Oral, [place] ly Standard, First dose on Sat04/07/19 at 0900, For [address] [facility] [place] Medication administered onsite POLYETHYLENE GLYCOL [id number] [...] to potential increased risk for aspiration.
[facility] [place] Medication administered onsite sennosides, LONGTERM 8.6 MG Oral Tablet senna 8.6 MG 2 tablet sen na 8.6 MG 2 tablet 04/06/2019 10:00:00 PM EST 2 {tbl} Oral active 2 tablet, Oral, Nightly, First dose on Sat04/06/19 at 2200, For [address] [facility] [place] Medication administered onsite OXcarbazepine (TRILEPTAL) tablet 450 mg 04/06/2019 09:00:0 0 PM EST 450 mg Oral aborted 450 mg, Oral, 2 Times Daily, First dose on Sat04/06/19 at 2100, For [address] [facility] [place] Medication administered onsite Fluoxetine 20 MG Oral Capsule fluoxetine (PROZAC) caps ule 20 mg fluoxetine (PROZAC) capsule 20 mg 04/06/2019 09:00:00 PM EST 20 mg Oral active 20 mg, Oral, 2 Times Daily, First dose (after last modification) on Sat04/06/19 at 2100, For [address] [facility] [place] Medication administered onsite heparin (porcine) 5000 UNIT/ML injection 5,000 Units [id number] 04/06/2019 09:00:00 PM EST 5000 U Subcutaneous active 5,000 Units, Subcutaneous, 2 Times Daily, First dose on Sat04/06/19 at 2100, For [address] [facility] [place] Medication administered onsite sulfamethoxazole-trimethoprim (BACTRIM) 340 mg [...] trimethoprim. This medication is located in the [employer] library as SMX/TMP
[facility] [place] Medication administered onsite gabapentin 400 MG Oral Capsule gabapentin (NEURONTIN) capsule 1,200 mg gabapentin (NEURONTIN) capsule 1,200 mg 04/06/2019 05:00:00 PM EST 1200 mg Oral active 1,200 mg, Oral , Three Times Daily Standard, First dose on Sat04/06/19 at 1700, For [address] [facility] [place] Medication administered onsite ropinirole 1 MG Oral Tablet ropinirole (REQUIP) tablet 1 mg ropinirole (REQUIP) tablet 1 mg 04/06/2019 05:00:00 PM EST 1 mg Oral active 1 mg, Oral, Three Times Daily Standard, First dose on Sat04/06/19 at 1700, For [address] [facility] [place] Medication administered onsite Methylprednisolone 40 MG/ML Injectable S olution methylPREDNISolone sodium succinate (SOLU-MEDROL) injection 40 mg methylPREDNISolone sodium succinate (SOLU-MEDROL) injection 40 mg 04/06/2019 04:00:00 PM EST 40 mg I ntravenous aborted 40 mg, Intraveno us, Daily Standard, First dose on Sat04/06/19 at 1600, For [address] [facility] [place] Medication administered onsite iohexol (OMNIPAQUE) 350 MG/ML contrast injection 100 mL [id number] 04/06/2019 01:45:00 PM EST 100 mL Given by IV completed 100 mL, Given by IV, 1 TIME IMAGING, Sat04/06/19 at 1345, For [address] [facility] [place] Medication administered onsite sodium chloride 0.9 % bolus 1,000 mL [id number] 04/06/2019 12:00: 00 PM EST 1000 mL Intravenous completed 1,000 mL , Intravenous, Once, Sat04/06/19 at 1200, For [address] [facility] [place] Medication administered onsite sodium chloride 0.9 % bolus 1,000 mL [id number] 04/06/2019 11:30: 00 AM EST 1000 mL Intravenous completed 1,000 mL , Intravenous, Once, Sat04/06/19 at 1130, For [address] [facility] [place] Medication administered onsite azithromycin (ZITHROMAX) 500 mg in sodium chloride 0.9 % 250 mL (2 mg/mL) IVPB 04/06/2019 10:45:00 AM EST 500 mg Intravenous aborte d 500 mg, Intravenous, at 250 mL/hr, Every 24 hours, First dose on Sat04/06/19 at 1045, For [address] [facility] [place] Medication administered onsite vancomycin (VANCOCIN) in D5W infusion 1,000 mg/200 mL (premi x) [id number] 04/06/2019 10:45:00 AM EST 1000 mg Intravenous aborted 1,000 mg, Intravenous, Administer over 60 Minutes, Every 12 hours, First dose on Sat04/06/19 at 1045, For 3 days
Please do not administer prior to blood culture
[facility] [place] Medication administered onsite Piperacillin 3000 MG / tazobactam 375 MG Injection piperacillin-tazobactam (ZOSYN) IVPB 3.375 g (premix) piperacillin-tazobactam (ZOSYN) IVPB 3.3 75 g (premix) 04/06/2019 10:45:00 AM EST 3.375 g Intravenous abo rted 3.375 g, Intravenous, Administer over 4 Hours, Every 8 hours, First dose on Sat04/06/19 at 1045, For 7 days
Please do not administer prior to blood cultures
[facility] [place] Medication administered onsite Morphine Sulfate 30 MG Extended Release Oral Tablet morphine sulfate ER (MS CONTIN) 12 hr tablet 30 mg morphine sulfate ER (MS CONTIN) 12 hr tablet 30 mg 04/06/2019 10:30:00 AM EST 30 mg Oral active 30 mg, Oral, Every 12 hours, First dose on Sat04/06/19 at 1030, For [address] [facility] [place] Medication administered onsite Acetaminophen 325 MG Oral [...] from all sources in [address]
[facility] [place] Medication administered onsite Oxycodone Hydrochloride 5 MG [...] require Pain Service consultation and approval.
[facility] [place] Medication administered onsite Albuterol 0.83 MG/ML Inhalant Solution a lbuterol (PROVENTIL) nebulizer solution 2.5 mg albuterol (PROVENTIL) nebulizer solution 2.5 mg 2018 09:15:00 AM EST 2.5 mg Nebulization completed 2 .5 mg, Nebulization, Once, Sat04/06/19 at 0915, For 1 dose
For Adults Q8 Hours is Hospital Standard, all orders will be changed to this unless NESHA is selected 'Yes' below.
[facility] [place] Medication administered onsite NaCl infusion 0.9 % [id number] 04/06/2019 07:45:00 AM EST Intravenous aborted at 30 mL/hr, Intrave nous, Continuous, Starting Sat04/06/19 at 0745, For [address] [facility] [place] Medication administered onsite Famotidine 0.4 MG/ML Injectable [...] min prior to start of infusion.
[facility] [place] Medication administered onsite Morphine Sulfate 30 MG Extended Release Oral Tablet Morphine Sulfate ER 30 MG Oral Tablet Extended Release (MS CONTIN) Morphine Sulfate ER 30 MG Oral Tablet Extended Release (MS CONTIN) 03/26/2019 12:00:00 AM EST 30 mg Oral active Myofascial pain syndrome Take 1 tablet by mouth every 12 (twelve) hours , Max Daily Dose: [address] [facility] [place] Myofascial pain syndrome Oxycodone Hydrochloride 5 MG Oral Tablet oxyCODONE HCl 5 MG Oral Tablet (ROXICODONE) oxyCODONE HCl 5 MG Oral Tablet (ROXICODONE) 03/26/2019 12:00:00 AM EST 5 mg Oral active Neck pain on left side Take 1 tablet by mouth every 3 (three) hours as needed for Pain, Max Daily Dose: [address] [facility] [place] Neck pain on left side 5 mg [...] tablets by mouth Two Times Daily [facility] Prednisone 10 MG Oral Tablet Prednisone 02/05/2019 12:00:00 AM EDT ORAL completed [facility] ([facility], ) 1-0.05 % 01/28/2019 [...] by mouth Three times frannie y [facility] 600 mg 08/29/2018 12:00:00 AM EDT tablet 180 TAKE TWO TABLETS BY MOUTH THREE TIMES A DAY TAKE TWO TABLETS BY MOUTH THREE TIMES A DAY SOLD: 08/03/2019 [facility] Ibuprofen 800 MG Oral Tablet ibuprofen (ADVIL,MOTRIN) 800 MG tablet ibuprofen (ADVIL,MOTRIN) 800 MG tablet 05/16/2018 12:00:00 AM EST 800 mg Oral aborted Take 800 mg by mouth Three times daily [facility] tizanidine 4 MG Oral Capsule tizanidine (ZANAFLEX) 4 M G capsule tizanidine (ZANAFLEX) 4 MG capsule 08/11/2017 12:00:00 AM EDT aborted TAKE ONE CAPSULE BY MOUTH THREE TIMES A DAY NEEDED FOR MUSCLE SPASMS (MAY TAKE EXTRA 4 MG AT NIGHT NEEDED) [facility] [place] Albuterol Sulfate HFA 108 (90 Base) MCG/ ACT Inhalation Aerosol Solution (PROVENTIL HFA) 1781-7515-13 2 {puff} Inhalation aborted Inhale 2 puffs into the lungs every 6 (six) hours as needed for Wheezing or Shortness of Breath [facility] [place] Prednisone 10 MG Oral Tablet predniSONE 10 MG Oral Tab let (DELTASONE) predniSONE 10 MG Oral Tablet (DELTASONE) 40 mg Oral aborted Take 40 mg by mouth daily [facility] [place] Prednisone 10 MG Oral Tablet predniSONE 10 MG Oral Tab let (DELTASONE) predniSONE 10 MG Oral Tablet (DELTASONE) 10 mg Oral aborted Take 10 mg by mouth daily [facility] [place] Amlodipine 5 MG Oral Tablet amlodipine (NORVASC) 5 MG tablet amlodipine (NORVASC) 5 MG tablet 5 mg Oral aborted Ta ke 5 mg by mouth daily. [facility] [place] Insurance Providers Payer name Policy type / Coverage type Policy ID Covered constitution party ID Covered constitution party's relationship to gomez Policy Gomez Plan Information [facility] [id number] [facility] EMPIRE [place] DIV [id number] MEDICARE [id number] SP [id number] MEDICARE A [id number] Self [id number] [facility] U [id number] Spouse [id number] [facility] O [id number] S [id number] MEDICARE C [id number] S [id number] EXCELLUS BC [id number] Spo [id number] MEDICARE [id number] Lily [id number] [facility]IRE ([facility]) O [id number] S [id number] [facility] Medigap Part B [id number] Family Dependent [id number] Medicare Medicare Primary [id number] Self 3 [id number] [facility] Medigap Part B [id number] Family Dependent [id number] Medicare Medicare Primary [id number] Self 3 [id number] [facility] [id number] MEDICARE A [id number] Self [id number] A EXCELLUS BCBS [id number] Spo [id number] [id number] BCBS EMPIRE KEREN DIV UNAVAILABLE SP UNAVAILABLE MEDICARE [id number] SP [id number] A UNITED HEALTHCARE [id number] 89 [id number] MEDICARE C [id number] S [id number] A UNITED [facility] O [id number] P [id number] [place] [facility] Medicare Primary Self [facility] [employer] [facility] Maintenance Organization (HMO) Family Dependent BCBS EMPIRE K[place]EN DIV [id number] [facility] [facility] Maintenance Organization (HMO) Family Dependent EMPIRE ([facility]) P UNAVAILABLE P [facility]NA[facility]ILABLE [facility] EMPIRE PLAN O [id number] U [id number] [facility] CHOICE O [id number] U [id number] Problems, Conditions, and Diagnoses Code Display Name Description Problem Type Effective Dates Data Source(s) Z02.89 Encounter for other administrative exami nations Encounter for other administrative examinations Diagnosis 04/12/2020 07:32:34 AM [facility] M54.2 Cervicalgia Cervicalgia Diagnosis 04/12/2020 07:32:34 AM [facility] M79.18 Myalgia, other site Myalgia, other site Diagnosis 1 04/23/2019 10:25:26 AM [facility] R06.2 Wheezing Wheezing Diagnosis 12/22/2019 02:33:09 PM ED [facility] M35.9 Systemic involvement of connective tissu e, unspecified Systemic involvement of connective tissue, unspecified Diagnosis 12/22/19 20 02:33:[address] [facility] telemed fol telemed fol Diagnosis 2019 08:12:18 AM [facility] J96.21 Acute and chronic respiratory failure wi th hypoxia Acute and chronic respiratory failure with hypoxia Diagnosis 10/23/2019 10:08:41 PM [facility] F17.210 Nicotine dependence, cigarettes, uncompl icated Nicotine dependence, cigarettes, uncomplicated Diagnosis 10/23/2019 07:46:[address] [facility] R00.0 Tachycardia, unspecified Tachycardia, unspecified Diag nosis 10/23/2019 07:46:[address] [facility] R50.9 Fever, unspecified Fever, unspecified Diagnosis 07:46:[address] [facility] J18.9 Pneumonia, unspecified organism Pneumonia, unspecified organism Diagnosis 10/23/2019 07:46:[address] [facility] R06.03 Acute respiratory distress Acute respiratory distress Diagnosis 10/23/2019 07:46:[address] [facility] Z20.828 Contact with and (suspected) exposure to other viral communicable diseases Contact with and (suspected) exposure to other viral communicable diseases Diagnosis 10/23/2019 07:46:33 PM EDT [facility] J96.90 Respiratory failure, unspeci fied, unspecified whether with hypoxia or hypercapnia Respiratory failure, unspecified, unspec ified whether with hypoxia or hypercapnia Diagnosis 10/23/2019 07:46:33 PM EDT [facility] SOB and fever SOB and fever Diagnosis 10/23/2019 07:46:[address] [facility] F17.200 Nicotine dependence, unspecified, uncomp licated Nicotine dependence, unspecified, uncomplicated Diagnosis 10/21/2019 01:16:39 PM EDT [facility] J45.991 Cough variant asthma Cough variant asthma Diagnosis 10/21/2019 11:52:[address] [facility] I21.4 Non-ST elevation (NSTEMI) myocardial inf arction Non-ST elevation (NSTEMI) myocardial inf Diagnosis 08/13/2019 09:56:45 AM EDT [facility] E78.5 Hyperlipidemia, unspecified Hyperlipidemia, unspecifie d Diagnosis 08/13/2019 09:56:45 AM EDT [facility] I27.20 Pulmonary hypertension, unspecified Pulmonary hy pertension, unspecified Diagnosis 08/13/2019 09:26:10 AM EDT [facility] R06.09 Other forms of dyspnea Other forms of dyspnea Diagnosi s 08/13/2019 09:26:10 AM EDT [facility] I50.32 Chronic diastolic (congestive) heart rahul lure Chronic diastolic (congestive) heart rahul Diagnosis 06/25/2019 09:20:48 AM EDT [facility] J96.01 Acute respirarory failure w/ hypo ezio J96.01 Acute respirarory failure w/ hypoxia Diagnosis 06/03/2019 12:46:57 PM [facility] hosp fol hosp fol Diagnosis 05/14/2019 08:06:59 AM [facility] Acute respiratory failure with hypoxia Acute res piratory failure with hypoxia Diagnosis 04/09/2019 11:00:00 AM [facility] Trigeminal neuralgia Trigeminal neuralgia Diagnosis 04/09/2019 11:00:00 AM [facility] AP1 AP1 Diagnosis 04/09/2019 11:00:00 AM [facility] R91.8 Other nonspecific abnormal finding of cathy ng field Other nonspecific abnormal finding of lung field Diagnosis 04/06/2019 04:32:01 PM [facility] G62.81 Critical illness polyneuropathy Critical illness polyneuropathy Diagnosis 04/06/2019 12:10:36 PM [facility] R65.20 Severe sepsis without septic shock Severe sepsis without septic shock Diagnosis 04/06/2019 12:10:36 PM [facility] A02.1 Salmonella sepsis Salmonella sepsis Diagnosis 04/06/2019 12:10:36 PM [facility] J96.01 Acute respiratory failure with hypoxia A cute respiratory failure with hypoxia Diagnosis 04/06/2019 10:46:13 AM [facility] I50.32 Chronic diastolic (congestive) heart rahul lure Chronic diastolic (congestive) heart failure Diagnosis 04/06/2019 10:46:04 AM [facility] Surgeries/Procedures Procedure Description Date Indications Data Source(s) COMPLETE PFT'S, PRE & POST BRONCHODILATOR (SPIROMETRY, LUNG VOLUMES, D <td><content ID="[id number]">COMPLETE PFT'S, PRE & POST BRONCHODILATOR (SPIROMETRY, LUNG VOLUMES, D</content></td><td>Routine</td><td>02/26/2020 8:10 AM EST</td><td><paragraph>Ground glass opacity present on imaging of lung</paragraph></td><td></td> 02/26/2020 08:10:59 AM EST Ground glass opacity present on imaging of lung [facility] [place] Ground glass opacity present on imaging of lung SEDIMENTATION RATE RBC AUTOMATED SEDIMENTATION RATE, AUTOMATED Routine 12/22/2019 4:23 PM EDT Autoimmune disease 12/22/2019 04:23:00 PM EDT Autoimmune disease [facility] Autoimmune disease BLOOD COUNT COMPLETE AUTO&AUTO DIFRNTL WBC COUNT CBC AND DIFFER ENTIAL Routine 12/22/2019 4:23 PM EDT Autoimmune disease 12/22/2019 04:23:00 PM EDT Autoimmune disease [facility] Autoimmune disease RHEUMATOID FACTOR QUANTITATIVE RHEUMATOID FACTOR Routine 12/22/2019 4:23 PM EDT Autoimmune disease 12/22/2019 04:23:00 PM EDT Autoimmune disease [facility] Autoimmune disease CREATINE KINASE TOTAL CK Routine 12/22/2019 4:23 P M EDT Autoimmune disease 12/22/2019 04:23:00 PM EDT Autoimmune disease [facility] [place] Autoimmune disease PROTHROMBIN TIME PROTIME INR Routine 10/28/2019 5:54 AM EDT 10/28/2019 09:54:[address] [facility] BLOOD COUNT COMPLETE AUTO&AUTO DIFRNTL WBC COUNT CBC AND DIFFER ENTIAL Routine 10/28/2019 5:54 AM EDT 10/28/2019 09:54:[address] [facility] BLOOD COUNT COMPLETE AUTO&AUTO DIFRNTL WBC COUNT CBC AND DIFFER ENTIAL Routine 10/27/2019 3:57 AM EDT 10/27/2019 07:57:[address] [facility] IAADI PNEUMOCUSTIS CARINII PNEUMOCYSTIS SMEAR BY DFA Routine 10/26/2019 5:05 PM EDT 10/26/2019 09:05:00 PM EDT [facility] VIRUS TISS CUL INOCULATION CYTOPATHIC EFFECT GENERAL VIRAL CULT URE Routine 10/26/2019 4:50 PM EDT 10/26/2019 08:50:[address] [facility] 1/2 NODE STATION/STRUX [facility] EBUS GUIDED SAMPL 1/2 NODE STATION/STRUX 10/26/2019 2:08 PM EDT acute hypoxic respiratory failure 10/26/2019 06:08:00 PM EDT - 10/26/2019 06:45:[address] [facility] BRONCHOSCOPY, RIGID/FLEX, W/WO FLUORO GUID W/BRONCHIAL ALVEOLAR LAVAGE BRONCHOSCOPY, RIGID/FLEX, W/WO FLUORO GUID W/BRONCHIAL ALVEOLAR LAVAGE 10/26/2019 2:08 PM EDT acute hypoxic respiratory failure 10/26/2019 06:08:00 PM EDT - 10/26/2019 [facility] COMPLETE AUTO&AUTO DIFRNTL WBC COUNT CBC AND DIFFER ENTIAL Routine 10/26/2019 4:52 AM EDT 10/26/2019 08:52:[address] [facility] BASIC METABOLIC PANEL CALCIUM TOTAL BASIC METABOLIC PANEL Routi ne 10/26/2019 4:52 AM EDT 10/26/2019 08:52:00 AM EDT [facility] CYTOLOGY NON GYNECOLOGICAL CYTOLOGY NON GYNECOLOGICAL Routine 10/26/2019 12:00 AM EDT 10/26/2019 04:00:00 AM EDT [facility] PROCALCITONIN (PCT) PROCALCITONIN Routine 10/25/2019 3:03 AM EDT 10/25/2019 07:03[facility] BLOOD COUNT COMPLETE AUTO&AUTO DIFRNTL WBC COUNT CBC AND DIFFER ENTIAL Routine 10/25/2019 3:03 AM EDT 10/25/2019 07:03:00 AM [facility] ANGIOTENSIN I-CONVERTING ENZYME ANGIOTENSIN CONVERTING ENZYME R outine 10/25/2019 3:03 AM EDT 10/25/2019 07:03:00 AM [facility] CALCIUM IONIZED CALCIUM, IONIZED Routine 10/25/2019 3:03 AM EDT 10/25/2019 07:03:00 AM [facility] BASIC METABOLIC PANEL CALCIUM TOTAL BASIC METABOLIC PANEL Routi ne 10/25/2019 3:03 AM EDT 10/25/2019 07:03:00 AM EDT [facility] IADNA S AUREUS AMPLIFIED PROBE TQ STAPH AUREUS MRSA PCR Routine 10/24/2019 11:52 AM EDT 10/24/2019 03:52:00 PM EDT [facility] CT THORAX W/O CONTRAST MATERIAL CT THORAX WITHOUT CONTRAST 7125 0 Routine 10/24/2019 6:10 AM EDT 10/24/2019 10:10:00 AM [facility] PROCALCITONIN (PCT) PROCALCITONIN Routine 10/24/2019 3:39 AM EDT 10/24/2019 07:39:00 AM [facility] BLOOD COUNT COMPLETE AUTO&AUTO DIFRNTL WBC COUNT CBC AND DIFFER ENTIAL Routine 10/24/2019 3:39 AM EDT 10/24/2019 07:39:00 AM [facility] TROPONIN QUANTITATIVE TROPONIN T Timed 10/24/2019 3:39 AM EDT 10/24/2019 07:39:00 AM [facility] THYROID STIMULATING HORMONE TSH TSH Routine 10/24/2019 3:39 AM EDT 10/24/2019 07:39:00 AM [facility] PHOSPHORUS INORGANIC PHOSPHORUS LEVEL Routine 10/24/2019 3:39 AM E DT 10/24/2019 07:39:00 AM [facility] MAGNESIUM MAGNESIUM LEVEL Routine 10/24/2019 3:39 AM EDT 10/24/2019 07:39:00 AM [facility] LACTATE LACTIC ACID LEVEL, PLASMA STAT 10/24/2019 3:39 AM EDT 10/24/2019 07:39:00 AM [facility] CALCIUM IONIZED CALCIUM, IONIZED Routine 10/24/2019 3:39 AM EDT 10/24/2019 07:39:00 AM [facility] BASIC METABOLIC PANEL CALCIUM TOTAL BASIC METABOLIC PANEL Routi ne 10/24/2019 3:39 AM EDT 10/24/2019 07:39:00 AM EDT [facility] GLUCOSE QUANTITATIVE BLOOD XCPT REAGENT STRIP POCT GLUCOSE, DOC KED Routine 10/23/2019 11:24 PM EDT 10/24/2019 03:24:00 AM [facility] BLOOD GASES ANY COMBINATION PH PCO2 PO2 CO2 HCO3 BLOOD GAS, ART ERIAL STAT 10/23/2019 10:19 PM EDT 10/24/2019 02:19:00 AM [facility] FIBRIN DGRADJ PRODUCTS D-DIMER QUAL/SEMIQUAN D-DIMER, QUANTITAT ADALGISA Routine 10/23/2019 8:14 PM EDT 10/24/2019 12:14:00 AM [facility] EKG ED PHYSICIAN INTERPRETATION EKG ED PHYSICIAN INTERPRETATION Routine 10/23/2019 8:12 PM EDT 10/24/2019 12:12:38 AM [facility] XR CHEST FRONTAL ONLY 46893 XR CHEST FRONTAL ONLY [id number] STAT 10/23/2019 8:11 PM EDT 10/24/2019 12:11:11 AM EDT [facility] UH COVID-19 PCR [facility] COVID-19 PCR STAT 10/23/2019 8:11 PM EDT 10/24/2019 12:11:[facility] NATRIURETIC PEPTIDE PROBNP STAT 10/23/2019 8:11 PM EDT 10/24/2019 12:11:[facility] CULTURE BACTERIAL BLOOD AEROBIC W/ID ISOLATES BLOOD CULTURE S TAT 10/23/2019 8:11 PM EDT 10/24/2019 12:11:00 AM EDT U [facility] CULTURE BACTERIAL BLOOD AEROBIC W/ID ISOLATES BLOOD CULTURE S TAT 10/23/2019 8:11 PM EDT 10/24/2019 12:11:00 AM EDT [facility] BLOOD COUNT COMPLETE AUTO&AUTO DIFRNTL WBC COUNT CBC AND DIFFER ENTIAL STAT 10/23/2019 8:11 PM EDT 10/24/2019 12:11:00 AM [facility] BASIC METABOLIC PANEL CALCIUM TOTAL BASIC METABOLIC PANEL STAT 10/23/2019 8:11 PM EDT 10/24/2019 12:11:00 AM EDT [facility] BASIC METABOLIC PANEL CALCIUM IONIZED POCT ISTAT CHEM8 Routine 10/23/2019 8:08 PM EDT 10/24/2019 12:08:00 AM EDT [facility] BLOOD GASES ANY COMBINATION PH PCO2 PO2 CO2 HCO3 POCT ISTAT ABG /LAC Routine 10/23/2019 8:05 PM EDT 10/24/2019 12:05:00 AM [facility] TROPONIN QUANTITATIVE POCT ISTAT TROPONIN Routine 10/23/2019 8:03 PM EDT 10/24/2019 12:03:00 AM [facility] EKG 12-LEAD - CMAXX REPORT EKG 12-LEAD - CMAXX REPORT 10/23/2019 8:00 PM EDT 10/24/2019 12:00:41 AM EDT [facility] EKG 12-LEAD - CMAXX REPORT EKG 12-LEAD - CMAXX REPORT 10/23/2019 8:00 PM EDT 10/24/2019 12:00:41 AM EDT [facility] EKG 12-LEAD EKG 12-LEAD STAT 10/23/2019 8:00 PM EDT 10/24/2019 12:00:41 [facility] 12-LEAD - CMAXX REPORT EKG 12-LEAD - CMAXX REPORT 10/23/2019 8:00 PM EDT 10/24/2019 12:00:00 AM EDT [facility] XR CHEST FRONTAL ONLY [id number] XR CHEST FRONTAL ONLY [id number] STAT 06/03/2019 4:48 PM EST 06/03/2019 09:48:27 PM EST [facility] OTHER BEDSIDE PROCEDURE OTHER BEDSIDE PROCEDURE Routine 06/03/2019 3:19 PM EST Chronic diastolic (congestive) heart failure 06/03/2019 08:1 9:42 PM EST Chronic diastolic (congestive) heart failure [facility] Chronic diastolic (congestive) heart rahul lure CENTRAL LINE CENTRAL LINE Routine 06/03/2019 3:17 PM EST Chronic diastolic (congestive) heart failure Ground glass opacity present on imaging of lung 06/03/2019 0 8:17:37 PM EST Ground glass opacity present on imaging of lungChronic diastolic (congestive) [facility] failure [facility] Ground glass opacity present on imaging of lung Chronic diastolic (congestive) heart rahul lure CARDIAC CATH PROCEDURE LOG CARDIAC CATH PROCEDURE LOG 06/03/2019 1:58 PM EST 06/03/2019 06:58:56 PM EST [facility] SHOWER MAID PROCEDURE SHOWER MAID PROCEDURE Routine 06/03/2019 1:[address] 06/03/2019 06:57:23 PM [facility] BLOOD COUNT HEMOGLOBIN HEMOGLOBIN STAT 06/03/2019 1:46 PM EST 06/03/2019 06:46:00 PM [facility] CT THORAX W/O CONTRAST MATERIAL CT THORAX WITHOUT CONTRAST 7125 0 STAT 05/15/2019 1:58 PM EST Acute respiratory failure with hypoxia Ground glass opacity present on imaging of lung 05/15/2019 0 6:58:15 PM EST Ground glass opacity present on imaging of lungAcute respiratory failure with hypoxia [facility] Ground glass opacity present on imaging of lung Acute respiratory failure with hypoxia XR CHEST FRONTAL ONLY 35573 XR CHEST FRONTAL ONLY 35469 STAT 04/09/2019 10:00 AM EST 04/09/2019 03:00:00 PM EST [facility] BLOOD COUNT COMPLETE AUTO&AUTO DIFRNTL WBC COUNT CBC AND DIFFER ENTIAL Routine 04/09/2019 4:31 AM EST 04/09/2019 09:31:00 AM [facility] PHOSPHORUS INORGANIC PHOSPHORUS LEVEL Routine 04/09/2019 4:[address] 04/09/2019 09:31:00 AM [facility] MAGNESIUM MAGNESIUM LEVEL Routine 04/09/2019 4:31 AM EST 04/09/2019 09:31:00 AM [facility] BASIC METABOLIC PANEL CALCIUM TOTAL BASIC METABOLIC PANEL Routi ne 04/09/2019 4:31 AM EST 04/09/2019 09:31:00 AM [facility] BLOOD COUNT COMPLETE AUTO&AUTO DIFRNTL WBC COUNT CBC AND DIFFER ENTIAL Routine 04/08/2019 5:19 AM EST 04/08/2019 10:19:00 AM [facility] PHOSPHORUS INORGANIC PHOSPHORUS LEVEL Routine 04/08/2019 5:[address] 04/08/2019 10:19:00 AM [facility] MAGNESIUM MAGNESIUM LEVEL Routine 04/08/2019 5:19 AM EST 04/08/2019 10:19:00 AM [facility] BASIC METABOLIC PANEL CALCIUM TOTAL BASIC METABOLIC PANEL Routi ne 04/08/2019 5:19 AM EST 04/08/2019 10:19:00 AM [facility] INPATIENT HOME O2 EVALUATION FOR DISCHARGE INPATIENT HOME O2 EVALUATION FOR DISCHARGE Routine 04/07/2019 3:20 PM EST 04/07/2019 08:20 :00 PM [facility] ECHO TTHRC R-T 2D W/WOM-MODE COMPL SPEC&COLR DOP ECHOCARDIO GRAM 2D COMPLETE Routine 04/07/2019 11:14 AM EST 04/07/2019 04:14:24 PM [facility] PROTHROMBIN TIME PROTIME INR Routine 04/07/2019 6:28 AM EST 04/07/2019 11:28:00 AM [facility] BLOOD COUNT COMPLETE AUTO&AUTO DIFRNTL WBC COUNT CBC AND DIFFER ENTIAL Routine 04/07/2019 6:28 AM EST 04/07/2019 11:28:00 AM [facility] PHOSPHORUS INORGANIC PHOSPHORUS LEVEL Routine 04/07/2019 6:[address] 04/07/2019 11:28:00 AM [facility] MAGNESIUM MAGNESIUM LEVEL Routine 04/07/2019 6:28 AM EST 04/07/2019 11:28:00 AM [facility] BASIC METABOLIC PANEL CALCIUM TOTAL BASIC METABOLIC PANEL Routi ne 04/07/2019 6:28 AM EST 04/07/2019 11:28:00 AM [facility] VIRUS TISS CUL INOCULATION CYTOPATHIC EFFECT GENERAL VIRAL CULT URE Routine 04/06/2019 7:02 PM EST 04/07/2019 12:02:00 AM [facility] CUL BACT XCPT URINE BLOOD/STOOL AEROBIC ISOL LEGIONEL LA CULTURE RESPIRATORY SPECIMEN Routine 04/06/2019 7:02 PM EST 04/07/2019 12:02 :00 AM [facility] [employer] CULTURE Routine 04/06/2019 7 :02 PM EST 04/07/2019 12:02:00 AM [facility] IAADI PNEUMOCUSTIS CARINII PNEUMOCYSTIS SMEAR BY DFA Routine 04/06/2019 7:02 PM EST 04/07/2019 12:02:00 AM [facility] CUL BACT XCPT URINE BLOOD/STOOL AEROBIC ISOL SPUTUM CULTURE Ro utine 04/06/2019 7:02 PM EST 04/07/2019 12:02:00 AM [facility] IADNA MYCOPLSM PNEUMONIAE AMPLIFIED PROBE TQ MYCOPLASMA PNEUMON IAE PCR Routine 04/06/2019 7:02 PM EST 04/07/2019 12:02:00 AM [facility] CULTURE FNGI MOLD/YEAST PRSMPTV OTH XCPT BLOOD FUNGUS CULTURE Routine 04/06/2019 7:02 PM EST 04/07/2019 12:02:00 AM [facility] CUL BACT XCPT URINE BLOOD/STOOL AEROBIC ISOL HC BAL CULTURE Ro utine 04/06/2019 7:00 PM EST 04/07/2019 12:00:00 AM [facility] VIRUS TISS CUL INOCULATION CYTOPATHIC EFFECT GENERAL VIRAL CULT URE Routine 04/06/2019 7:00 PM EST 04/07/2019 12:00:00 AM [facility] CUL BACT XCPT URINE BLOOD/STOOL AEROBIC ISOL LEGIONEL LA CULTURE RESPIRATORY SPECIMEN Routine 04/06/2019 7:00 PM EST 04/07/2019 12:00 :00 AM [facility] [employer] CULTURE Routine 04/06/2019 7 :00 PM EST 04/07/2019 12:00:00 AM [facility] IAADI PNEUMOCUSTIS CARINII PNEUMOCYSTIS SMEAR BY DFA Routine 04/06/2019 7:00 PM EST 04/07/2019 12:00:00 AM [facility] IADNA MYCOPLSM PNEUMONIAE AMPLIFIED PROBE TQ MYCOPLASMA PNEUMON IAE PCR Routine 04/06/2019 7:00 PM EST 04/07/2019 12:00:00 AM [facility] CULTURE FNGI MOLD/YEAST PRSMPTV OTH XCPT BLOOD FUNGUS CULTURE Routine 04/06/2019 7:00 PM EST 04/07/2019 12:00:00 AM [facility] GLUCOSE QUANTITATIVE BLOOD XCPT REAGENT STRIP POCT GLUCOSE, DOC KED Routine 04/06/2019 6:45 PM EST 04/06/2019 11:45:00 PM [facility] BRONCHOSCOPY, RIGID/FLEX, W/WO FLUORO GUID W/WO CELL WASHING (SEP PROC) BRONCHOSCOPY, RIGID/FLEX, W/WO FLUORO GUID W/WO CELL WASHING (SEP PROC) 04/06/2019 4:45 PM EST hypoxic respiratory failure 04/06/2019 09:45:00 PM EST - 04/06/2019 10:10:00 PM [facility] BLOOD GASES ANY COMBINATION PH PCO2 PO2 CO2 HCO3 BLOOD GAS, ART ERIAL Routine 04/06/2019 3:47 PM EST 04/06/2019 08:47:00 PM [facility] CT ANGIOGRAPHY CHEST W/CONTRAST/[place]CONTR[place] [id number] STAT 04/06/2019 1:35 PM EST 04/06/2019 06:35:00 PM [facility] CUL BACT XCPT URINE BLOOD/STOOL AEROBIC ISOL LEGIONEL LA CULTURE RESPIRATORY SPECIMEN Routine 04/06/2019 12:20 PM EST 04/06/2019 05:20 :00 PM [facility] CUL BACT XCPT URINE BLOOD/STOOL AEROBIC ISOL SPUTUM CULTURE ST AT 04/06/2019 12:20 PM EST 04/06/2019 05:20:00 PM [facility] IAAD EIA MULT STEP METHOD NOS EACH ORGANISM LEGIONELLA ANTIGEN, URINE Routine 04/06/2019 12:20 PM EST 04/06/2019 05:20:00 PM [facility] RESPIRATORY PANEL RESPIRATORY PANEL Routine 04/06/2019 12:07 PM EST 04/06/2019 05:07:00 PM [facility] CUL PRSMPTV PTHGNC ORGANISM SCRN W/COLONY ESTIMJ MRSA CULTURE Routine 04/06/2019 12:07 PM EST 04/06/2019 05:07:00 PM [facility] SEPSIS WORKUP SEPSIS WORKUP Routine 04/06/2019 12:00 PM EST Sepsis due to Salmonella species with critical illness polyneuropathy, unspecified whether septic shock present 04/06/2019 05:00:29 PM EST Sepsis due to Salmonella species with critical illness polyneuropathy, unspecified whether septic shock present [facility] [place] Sepsis due to Salmonella species with cr itical illness polyneuropathy, unspecified whether septic shock present IAAD EIA HIV-1 AG W/HIV-1&HIV-2 ANTBDY SINGLE HIV AG AB COMBO S CREEN Routine 04/06/2019 11:46 AM EST 04/06/2019 04:46:00 PM [facility] NATRIURETIC PEPTIDE PROBNP Routine 04/06/2019 11:46 AM EST 04/06/2019 04:46:00 PM [facility] TROPONIN QUANTITATIVE TROPONIN T Routine 04/06/2019 11:46 AM EST 04/06/2019 04:46:00 PM [facility] LACTATE LACTIC ACID LEVEL, PLASMA Routine 04/06/2019 11:46 AM EST 04/06/2019 04:46:00 PM [facility] EKG 12-LEAD - CMAXX REPORT EKG 12-LEAD - CMAXX REPORT 04/06/2019 11:28 AM EST 04/06/2019 04:28:35 PM [facility] EKG 12-LEAD - CMAXX REPORT EKG 12-LEAD - CMAXX REPORT 04/06/2019 11:28 AM EST 04/06/2019 04:28:35 PM [facility] EKG 12-LEAD EKG 12-LEAD Routine 04/06/2019 11:28 AM EST 04/06/2019 04:28:35 PM [facility] CULTURE BACTERIAL BLOOD AEROBIC W/ID ISOLATES BLOOD CULTURE S TAT 04/06/2019 10:41 AM EST 04/06/2019 03:41:00 PM [facility] CULTURE BACTERIAL BLOOD AEROBIC W/ID ISOLATES BLOOD CULTURE S TAT 04/06/2019 10:37 AM EST 04/06/2019 03:37:00 PM [facility] GLUCOSE QUANTITATIVE BLOOD XCPT REAGENT STRIP POCT GLUCOSE, DOC KED Routine 04/06/2019 9:39 AM EST 04/06/2019 02:39:00 PM [facility] BLOOD COUNT COMPLETE AUTO&AUTO DIFRNTL WBC COUNT CBC AND DIFFER ENTIAL Routine 04/06/2019 9:17 AM EST 04/06/2019 02:17:00 PM [facility] PHOSPHORUS INORGANIC PHOSPHORUS LEVEL Routine 04/06/2019 9:[address] 04/06/2019 02:17:00 PM [facility] MAGNESIUM MAGNESIUM LEVEL Routine 04/06/2019 9:17 AM EST 04/06/2019 02:17:00 PM [facility] COMPREHENSIVE METABOLIC PANEL COMPREHENSIVE METABOLIC PANEL Rou blu 04/06/2019 9:17 AM EST 04/06/2019 02:17:00 PM [facility] XR CHEST FRONTAL ONLY [id number] XR CHEST FRONTAL ONLY [id number] Routine 04/06/2019 9:03 AM EST 04/06/2019 02:03:19 PM [facility] BRONCHOSCOPY REPORT BRONCHOSCOPY REPORT 04/06/2019 12:00 AM EST 04/06/2019 05:00:00 AM [facility] Results ID Date Data Source [id number] 04/12/2020 02:57:37 PM [facility] Hospital Name Value Range Interpretation Code Description Data Mellissa rce(s) Supporting Document(s) Progress Note [facility] YBGWFm5zRdPHGyRo67/ENTpgEYCss4NgRXrhNMk7ARcjZYIrM5TbJJK3gM1dBXY6ISpMLvHeBoUdUJD6 lbm [file] Fr4IIxZ9TBM2uHLoCa6YUQXjMNQHCxWeHH5HEWw= ID Date Data Source [id number] 02/28/2020 09:24:31 PM [facility] Name Value Range Interpretation Code Description Data Mellissa rce(s) Supporting Document(s) Progress Note [facility] XPNMCl9oKnCWExMa89/TFJzxFJUqk8ZkNOhtABg1HYpcYKFvZ3UgKWK9qG8kUSU7JJsQLcApIcHaDTTh lbm [file] EMKYYCwFE7vmPJMVl4AYtLeVXMX2WJoM3rXGJDiuCs YFTn9ZgwgFwPAECY3BqQi2FixTZRhhorgcotoeJFNMWjb9EcTMF7zfzMuaLgysQ/QHLCWZPB2trDOex2 DsC0hFxFx8P2opeJiwTeHpUMoQsornLxfkNITtRVXQVuKkXLhnIsWI8vPz6VljdyWepbYZovMJBXYhH9 yZdNH1FifhOcy5APLCWziaWpSaYIM0uWZynRhRfgYf 8ND+4r8JuSQetL1+VoYnlrxyIeSE2PpouEm2rbyLwY8VAZC2mRidJQwSAPGontMmmY5mIAdiC3VHIoZF Wi3EKrxNP+mI/dUG2zj8Mj7cosFzAdoQuxEA6shAQW1VQM4VckuTN4jIiIQBsQ7mePYU7324nAssmjre Tx0QbCb6+ax0/U8fr+eCMttSqU8IXpwWCVX4L7zqng 4xE13dzJb+NuyeVjhqhoRdMWh/rbJ9xACn3dhNSLFyzfRQkZy33NlnFgQ9tWkmaS/vfPD0qD6K8u4P3T AVQk3+Xav5OJduCteJ8F6EW9plh6pJsLke8D1Cs4BFPouQGfNHaNEiFjRzPlYNZEruGsW8Bb2NUqc/KO [employer]/V3H679QvW659rA5Xwru/6U572SRJ2jboTG8ZlV [file] tdAUNDZhT8NEOoMZumTQEVLh1S ID Date Data Source [id number] 02/23/2020 07:22:48 AM EST [facility] Name Value Range Interpretation Code Description Data Mellissa rce(s) Supporting Document(s) Progress Note [facility] ZTGRHz7dUnVWNmAy57/RFJiyVUNic1HlZTclLQz8FUwgNOUxP6YgVCZ1bM9cPSY3IPqAGqPqUyPgLQO2 lbm [file] rTORGOlGJhfci6Mt1lo1ajqQHZI3QdJ9r6uH8pS4GnwkHxrmyYOLPbz/Tonn1I3u6fbMnhVk+OeCx/toy packer [file] AgICAgICAgICAgICAgICAgICAgICAgICAgICAgICAgICAgICAgICAgICAgICAgICAgICAgICAgICAgIC AgICAgICAgICAgICAgICAgICAgICAgICAgICAgICAgICAgICANCiAgICAgICAgICAgICAgICAgICAgIC AgICAgICAgICAgICAgICAgICAgICAgICAgICAgICAg ICAgICAgICAgICAgICAgICAgICAgICAgICAgICAgICAgICAgICAgICAgICAgICANCiAgICAgICAgICAg ICAgICAgICAgICAgICAgICAgICAgICAgICAgICAgICAgICAgICAgICAgICAgICAgICAgICAgICAgICAg ICAgICAgICAgICAgICAgICAgICAgICAgICAgICANCi AgICAgICAgICAgICAgICAgICAgICAgICAgICAgICAgICAgICAgICAgICAgICAgICAgICAgICAgICAgIC AgICAgICAgICAgICAgICAgICAgICAgICAgICAgICAgICAgICAgICANCiAgICAgICAgICAgICAgICAgIC AgICAgICAgICAgICAgICAgICAgICAgICAgICAgICAg ICAgICAgICAgICAgICAgICAgICAgICAgICAgICAgICAgICAgICAgICAgICAgICAgICANCiAgICAgICAg ICAgICAgICAgICAgICAgICAgICAgICAgICAgICAgICAgICAgICAgICAgICAgICAgICAgICAgICAgICAg ICAgICAgICAgICAgICAgICAgICAgICAgICAgICAgIC ANCiAgICAgICAgICAgICAgICAgICAgICAgICAgICAgICAgICAgICAgICAgICAgICAgICAgICAgICAgIC AgICAgICAgICAgICAgICAgICAgICAgICAgICAgICAgICAgICAgICAgICANCiAgICAgICAgICAgICAgIC AgICAgICAgICAgICAgICAgICAgICAgICAgICAgICAg ICAgICAgICAgICAgICAgICAgICAgICAgICAgICAgICAgICAgICAgICAgICAgICAgICAgICANCiAgICAg ICAgICAgICAgICAgICAgICAgICAgICAgICAgICAgICAgICAgICAgICAgICAgICAgICAgICAgICAgICAg ICAgICAgICAgICAgICAgICAgICAgICAgICAgICAgIC AgICANCiAgICAgICAgICAgICAgICAgICAgICAgICAgICAgICAgICAgICAgICAgICAgICAgICAgICAgIC AgICAgICAgICAgICAgICAgICAgICAgICAgICAgICAgICAgICAgICAgICAgICANCjw/eLYqO7xbgRLgna E0F6tbTw1NOl1PMR5rr6StRCXeXNljmyXfXxrVIqEw LEGwQkzNJjm0LYxdQJ5VyMGnJ2IpX8XqZZtaKM7GZXJkMCRfePEtKEQjDZPjBeE8JCYpTFyhXB1WdPOa ZUtbPXJcEIHgVjRsGPFfIT3AIVMlR609uxJmRy0GRq8QGrQnZF1smd8UTfHpFXUlYdrGBgq8JAnlGC2X uPAmcTLvEcRsWIEZQcOwT0jdq8JjChUpUGEHAAldNP 5Rn8DrqJTuZLk+Zq2JIH3oe4FoVOjoXyCjNA4aul8WPZaWPeKxW5BwxUyrDGBri1mpBVSqCD0utUPyFJ G4ZMa9zstwZUPuGMjuTDHESJQmjEAdZI6yVc5sNQCrCXPxVbNvNQHVKG0UNKZmAESjzMUsSFXkOQUOYN 3NSXfdEFK5PQGcibUokSIfTNqaIM2FIZWtlqChMsNv MCBSDQo+Oj7DDU7ki6PuGRpkMlAjKG8asy3WSHoAAePcU7B2xVKcG0I5KJzfGh2KGGYeXDQlWJbdDJZK BFfnAZ9ACF9ozgU0DQ8KlUIkYNDgSAKzrTVhZPe5V61fiRVqBChjWD6GSBX+Isiah+Jh1SJFRfJSWkQRZn SsQeSAWXNsRzF3FaW8HAw0XgJ3DySZ95xAxregCsPT umRS6ZOG5hOCTiYPWFWO7NbCWbuL0dbkFeEEFgQBBCFyKgV93eeRCnOZJvXQXwSEYaIk8RNZSaN6Lmtl AwuHlqtxIyIZSvMZSOZB0ANOygpbJkcOEdjOtwVC28wIifTO9SKs4ENoAtOW3gyo1NkZCgIz6NYKKhXA 9OLVSyIHXjBVXcAOK4FCHzQcSmOWrdPCYuLMQmXYZ3 ZOOeCJZrUR3EEhYuVYKjRWj2RYamTMHhQCLqgw8YNFDgSFVvKMXiQAJfWDFbOWPgQNjcNSSkAKDxBMI0 MYAqZJXhIM3JExGgGRRoICC6WexhNSPfXTLygj2COZPbQGSuFol1QuSsJIFuMVQvBGiqKXJdHNM5XkBl ZYFwIDKyUE1ACrTeBFDoMPB5XUDaFUUsPMMenx6ODV HoBKIqXZU6ZVRvOUNqMSQiCMytRPBfLAS2CjjtAPArKNRvHC5YWcAtJMIwGLR8COMhBBBnYTZsgu6VQM OpJYHzWnlbKOKtPTGoUUHbRFbrWJQsCOW8SOZrGSSpYJNcGC6UTcOzQWRiSIvuIJReOAGxLHPlkr5EGT ThDKCjBFH1LmXhIXLvWUFyQEtvVWQdDAH0XVykTIIx MXCgLI1AIwVnKIBnQRrtETFtHIWfUKGusi8IQPVqQLGuOABaSPNsLQRzVRDsRBjvEOBlYXN1QYK4JOKx PYGhFL2TJjIxSSFtFVr9ZxfvDUVzJSMhli4XBOPxQLThJYSuOnRaQUPoBONpEHolHBZvXILrBeuvGBOp AHXjUH0TAqLoUDWlKaQ8ZhTrPMPxOADmap5YpRNpoC zgvs8RLKsKQh8BdButXLR7ZNooQd6whROrJuDiXYVVWi4RfcMqKDNgEFLWXKbcPBVkPJUvWqFpZTAqNH Y9HqzqXYTkKrSpTsFlSKQiZGIcGvC6EqJ6ONOnCGLkOYC6TgV2QSJjFCXyQWRmWJNySsHnFiT0JBp+IF 0gDQo+Fm3Dy2YnaaS0tjXeRGskRGy6OC9CRFHCU8IIGz== ID Date Data Source [id number] 02/17/2020 02:00:00 PM EST [facility] Name Value Range Interpretation Code Description Data Mellissa rce(s) Supporting Document(s) SARS coronavirus 2 RNA [facility] This lab was ordered by [facility] and reported by [facility]. ID Date Data Source [id number] 12/29/2019 05:30:11 PM EDT [facility] Name Value Range Interpretation Code Description Data Mellissa rce(s) Supporting Document(s) Progress Note [facility] JZESSa8cXbWFDjQt56/BDUotPLPjd0TtJZcxDVk7AYkjYEDqW4RrOWI2nU7rOWL0GMsQGlFxJtNnAXZf lbm MfQvvUOiMxRLYdXwcLKlQvMLwfInizaDWdAX8RbLZ6OYNjX99uKCYxTBAsG0GdWIGzQfN+Zv6IVXJrtB AeHU0EGfsL2S8nskm0Vt6/GW8DsAWOAYKHg07ZHjalUlqF6XcbpWNBcVlNLx+cPRRceP3l+tvPSrtrec qkF5efIRpZeEcc4LAA0PFvHTJSJE/0cWMT46ZhB/t3 +sTUKNZqiQ38e6wOc55fdrfofNPh0OfAFJEF7m+ufb/Gj82x1NkfwVp1n+uASkTDmflGF5PvB995AseA p8RM7z5GdKUfs7s+ego3cji/9gPr8/Pnpv+P1w5xZ3A0vG9Uz785KVriBWSAwT3F4d3fTuTzPf5oBr5K VQft+7vKV0UWc2Gi9Hnaw0cV7VtHMS+ici7DzK1mhU Nd+Clsp+lXxzjwIehJBmdx9PYvIQJBv3q+NceK1Gi8gZre9k9fqDH9RvveJ3qE4ZsKjGB/0ZfSkm/MEO ezP+NKTDMy2UfZL6NV1z0wEhllSo/FzbgShlvyuPA9uuij5WCfzkHIOycf3ltiS9+VcPbQZLwgihaTeX PrMx3sOdi6BaOf6MjrZHwzXNevbKEJh0QY94o8LNar KZskF2D8lYHgkDOfq+f7985w9L1jLl+9lxxjn+eW2PuJd13gzSTiJwcp9ttJgkS54zomiMj8eKWXfzEb LIRB9E2eq4hkrp88+XtweigAbNJoIANiD3lHUOf5gMERIeIAPQQdnuDt+dVIUfTlwHNicW3/ZRgFaWdO oPm7686lM84oE+8kj6p4K9J70zxii5CVPY3zwD85Yk [file] AgICAgICAgICAgICAgICAgICAgICAgICAgICAgICAg ICAgICAgICAgICAgICAgICAgICAgICAgICAgICANCiAgICAgICAgICAgICAgICAgICAgICAgICAgICAg ICAgICAgICAgICAgICAgICAgICAgICAgICAgICAgICAgICAgICAgICAgICAgICAgICAgICAgICAgICAg ICAgICAgICAgICANCiAgICAgICAgICAgICAgICAgIC AgICAgICAgICAgICAgICAgICAgICAgICAgICAgICAgICAgICAgICAgICAgICAgICAgICAgICAgICAgIC AgICAgICAgICAgICAgICAgICAgICANCiAgICAgICAgICAgICAgICAgICAgICAgICAgICAgICAgICAgIC AgICAgICAgICAgICAgICAgICAgICAgICAgICAgICAg ICAgICAgICAgICAgICAgICAgICAgICAgICAgICAgICANCiAgICAgICAgICAgICAgICAgICAgICAgICAg ICAgICAgICAgICAgICAgICAgICAgICAgICAgICAgICAgICAgICAgICAgICAgICAgICAgICAgICAgICAg ICAgICAgICAgICAgICANCiAgICAgICAgICAgICAgIC AgICAgICAgICAgICAgICAgICAgICAgICAgICAgICAgICAgICAgICAgICAgICAgICAgICAgICAgICAgIC AgICAgICAgICAgICAgICAgICAgICAgICANCiAgICAgICAgICAgICAgICAgICAgICAgICAgICAgICAgIC AgICAgICAgICAgICAgICAgICAgICAgICAgICAgICAg ICAgICAgICAgICAgICAgICAgICAgICAgICAgICAgICAgICANCiAgICAgICAgICAgICAgICAgICAgICAg ICAgICAgICAgICAgICAgICAgICAgICAgICAgICAgICAgICAgICAgICAgICAgICAgICAgICAgICAgICAg ICAgICAgICAgICAgICAgICANCiAgICAgICAgICAgIC AgICAgICAgICAgICAgICAgICAgICAgICAgICAgICAgICAgICAgICAgICAgICAgICAgICAgICAgICAgIC AgICAgICAgICAgICAgICAgICAgICAgICAgICANCiAgICAgICAgICAgICAgICAgICAgICAgICAgICAgIC AgICAgICAgICAgICAgICAgICAgICAgICAgICAgICAg ICAgICAgICAgICAgICAgICAgICAgICAgICAgICAgICAgICAgICANCjw/fAEwV7hfsGYxduF9Z7ytHr3Q Ik8XTU2lc2BoEMXpUBgpbcOsFbvJJjOqTGBkPhaWGbf4TRryYQ7YwANoQ8TnN6OvFJnwFT4LHKSxAVCq xIXhTFFySZIvPsQ7PINjPFxjBM3GfUCrGYraQEWkTB HiTxMnUGCuSNPxOGLiPHDkYQGGPSOoZVLtOxMpSWTlWQEkFH7ETATnJ714qbMfHl6DNo8ARpBlIL5lfg 9RSiMoKZPlEdpVOri6YSjoIW5AzMDqkBEhEvXbBFSZUaEfZ6elo1BnUyOcBHJBQUlzGK6Bz7MyyFAbNN o+Id0NAK5my2KiJPpaYlVtIN1trf1WUJsAQePsF7Yq aUtcWULot4atYTOkNU7fgJHiWOF2TY5lagh9cnVSsHRjA2ixTLNUYHIAeVMpPVEaJZ9mMJ8bBHVjOWGu NlNxQYIDKA3QOVQbYXGnyVRwNWEvFIDODK6IVHxbRVU9APWjozAjbANrIKkmZV0ZHJPvzrTmRgOhZPAP DQo+Rq2NBO8kj7UrFBvvDABjZA9bbz9SHMkVFbMvL9 A0dGSxF2C1RNyeKa0WKDGmDXRhJuNjFIMRCJiwJM6FCN5zwnT7VQ2HlCQdDNKsRDOpxEBgORk7O31wuL MjSTgbWW7CAUC+Isiah+Mv4RTQSpJNUrXBIcSsGoHJTPNmSgC3TcZ2WAk7YfJ7KpMP02bFzzieBxWBpsIL 2LFD3rDPSjSENHDU7WnOMinT6ovpBsHnQdPOEVGtAu O03niTDvYQBnRVCbWABvVr1QPOVkU2QghyIdvIgoatLbZZEtEDVBMY6PZKrnqlFjzUEjrUwpKO79vJoz ZY9PBq9UThQvQN1dft7AjKWwJh8IKHGfSY3PAMToELMwPVFbCDD6IKIrVpEqQNcyKHWcSLGpPUQ0VWNo JPRqAE5YZbHaBQMcPuZ5BkjuWEDaABIxqe8WNYSpYS FtXEF2XqLxBGMaZARoXJumFXCvILJqPCP0OTQyUHFwEW3EFcWcIMDaLOL8HEYpTLGeXIQyiy9GNJYyYK QlDHXnHCTxIUHkTJKvBYpyKPDbQPM1JVP4WJThXDZvQT1HHhXzEKHdEEgdAYWlJLXgDYKlel7AQNSmHS ZfPCyzDDKwXNHrJFDdDEjhFLWqJDFfSWG6YLLeSZUh FC6GHgYxJOOjHFV5BKIpGWNvEVBcjs9QQZJcMNJlGQDvEQTtYKPjWWWoYZesIYTiDJM1QDN5COEbKFLz MD4VJhYbZUHdIEmnZxSbGJDjHCUney7UZTQzOKTsFGU5SPNeJHYiCQTnEGwgQPEnLIEdFPN0UBXaXFKw JN0FYgMzAJApZwQ2DIxnOVKgGBJbug6NNNTxJHEeMG ZkEDWdEWWzUHIeIHslHWOmHKCgDcb5QMAhVVXnOP9PXkOaTJLjPuW7GEOuYRBmNWCsik6SKSQuMGSbVp o4ZOOtDXNlLLNlJIweEIXcCKVjRXD4MAYsTPApUX4OSnJoFQSjBfE5FbJpXLXkAKWfpb7GNHLgFXMnTI a5NYHlSPFyGDCgNDsnADIuUKY4HFPzAZTzJKXoBK9C UzMkBVWcZjSlBBScZUIkCIVaoz1IJFVtRTAcCYC6QdTnFDXqJHEgKWdtXQMjOTV8NFAvSRSpOCAzJT7T HxKbNLYqAoG3LhlzLYMwHJThad5RPEUrIPQyCtmeZdUlXUHfSZYsKPzxTRTwQGU6DaEyLEPkXFBpFI9P XzPoJAUxVtv2ATDqQMYhZMNhdy6WDJByKINoWQz4NK MhQXOaGVRxKBjgLOYrGCC3ZYR3QAAkWPNpYI0ACcGlQEbjUVUYHjd3WGryM2x3HWDwCF2AK4Syg5CbUw IuXTOBVQniOY5yaqJpEOGmOl3UR1iSXxlkKnNkXUE4FrKyPVE6VZS9DeTvSKP5KximFSKbEGrgSo1fFR EyRGV2JMb3UqMcNKFlBJHxFHXuSqGhU5K7TZYmARPy KlXnXK3RNq2JWxH6JJT6gSDbJt6ROrchEyCUFbZwVR3BODm= ID Date Data Source 12/23/2019 01:32:26 PM [facility] Name Value Range Interpretation Code Description Data Mellissa rce(s) Supporting Document(s) Neutrophil cytoplasmic Ab [Presence] in Serum by Immunofluoresce nce Negative [facility] [place] ID Date Data Source 12/23/2019 02:02:33 PM [facility] Name Value Range Interpretation Code Description Data Mellissa rce(s) Supporting Document(s) Nuclear Ab Pattern Homogenous [Titer] in Serum <80 [facility] [place] Nuclear Ab pattern.speckled [Titer] in Serum <80 [facility] [place] Nuclear Ab pattern.rim [Titer] in Serum <80 [facility] [place] Nuclear Ab pattern.nucleolar [Titer] in Serum <80 [facility] [place] ID Date Data Source [id number] 12/23/2019 03:20:42 PM [facility] Value Range Interpretation Code Description Data Mellissa rce(s) Supporting Document(s) Cyclic citrullinated peptide IgA+IgG Ab [Units/volume] in Serum or Plasma by Immunoassay 7 units 0-20 [facility] NegativeNegative and indicates no CCP3an tibodies or levels below the negativecutoff of the assay.(NOTE)These results were obtained with the [employer] CCP3.1 IgG/IgAELISA. Anti-CCP values obtained with different experimental assembler's assaymethods may not be interchangeable. The magnitude of the reported IgGor IgA levels cannot be correlated to an endpoint titer. ID Date Data Source 12/28/2019 01:23:41 PM [facility] Value Range Interpretation Code Description Data Mellissa rce(s) Supporting Document(s) Centromere Ab [Units/volume] in Serum 4 [AU]/mL [address] [place] [address] ID Date Data Source 12/28/2019 01:23:41 PM [facility] Value Range Interpretation Code Description Data Mellissa rce(s) Supporting Document(s) Sjogrens syndrome-A extractable nuclear Ab [Units/volume] in Serum by Immunofluorescence 10 [AU]/mL [address] [place] [address] ID Date Data Source 12/28/2019 01:23:41 PM [facility] Value Range Interpretation Code Description Data Mellissa rce(s) Supporting Document(s) Sjogrens syndrome-B extractable nuclear Ab [Units/volume] in Serum by Immunofluorescence 5 [AU]/mL [address] [place] [address] ID Date Data Source 12/28/2019 01:23:41 PM [facility] Value Range Interpretation Code Description Data Mellissa rce(s) Supporting Document(s) SCL-70 extractable nuclear Ab [Units/volume] in Serum 18 [AU]/mL [address] [place] [address] ID Date Data Source 12/28/2019 01:23:41 PM [facility] Value Range Interpretation Code Description Data Mellissa rce(s) Supporting Document(s) DNA double strand Ab [Units/volume] in Serum by Immunofluore scence 0 [IU]/mL 0-99 [facility] [place] ID Date Data Source [id number] 12/28/2019 01:23:41 PM [facility] Name Value Range Interpretation Code Description Data Mellissa rce(s) Supporting Document(s) Ribonucleoprotein extractable nuclear Ab [Units/volume] in Serum by Immunofluorescence 11 U/ML 0-99 [facility] ID Date Data Source 12/24/2019 01:06:37 PM [facility] Name Value Range Interpretation Code Description Data Mellissa rce(s) Supporting Document(s) Aldolase [Enzymatic activity/volume] in Serum or Plasma 4.8 U/L 3. 3-10.3 [facility] [place] (NOTE)Performed At: RN [facility] [address] [id number] Kumar MD Ph:[id number] ID Date Data Source 12/22/2019 05:13:26 PM [facility] Value Range Interpretation Code Description Data Mellissa rce(s) Supporting Document(s) Leukocytes [#/volume] in Blood by Automated count 9.8 10*3/uL 4-10 [facility] [place] Erythrocytes [#/volume] in Blood by Automated count 4.54 10*6/uL 4.1- 5.3 [facility] [place] Hemoglobin [Mass/volume] in Blood 11.6 g/dL 11.5-15.5 [facility] [place] Hematocrit [Volume Fraction] of Blood by Automated count 35.8 % 3 6-[address] [facility] [place] Erythrocyte mean corpuscular volume [Entitic volume] by Auto mated count 78.8 fL 80-[address] [facility] [place] Erythrocyte mean corpuscular hemoglobin [Entitic mass] by Automated count 25.6 pg 27-[address] [facility] [place] Erythrocyte mean corpuscular hemoglobin concentration [Mass/volume] by Automated count 32.5 g/dL 32.0-36.0 [facility] Erythrocyte distribution width [Ratio] by Automated count 16.7 % 11.5-14.[address] [facility] [place] Platelets [#/volume] in Blood by Automated count 329 10*3/uL 150-400 [facility] [place] Differential cell count method - Blood [facility] [place] Neutrophils/100 leukocytes in Blood by Automated count 60 % [facility] [place] Lymphocytes/100 leukocytes in Blood by Automated count 27 % [facility] [place] Monocytes/100 leukocytes in Blood by Automated count 8 % [facility] [place] Eosinophils/100 leukocytes in Blood by Automated count 4 % [facility] [place] Basophils/100 leukocytes in Blood by Automated count 1 % [facility] [place] Neutrophils [#/volume] in Blood by Automated count 5.93 10*3/uL 1.8-[address] [facility] [place] Lymphocytes [#/volume] in Blood by Automated count 2.70 10*3/uL 1.2-[address] [facility] [place] Monocytes [#/volume] in Blood by Automated count 0.76 10*3/uL 0-0.8 [facility] [place] Eosinophils [#/volume] in Blood by Automated count 0.39 10*3/uL 0-0.5 [facility] [place] Basophils [#/volume] in Blood by Automated count 0.06 10*3/uL 0-0.2 [facility] [place] Nucleated erythrocytes/100 leukocytes [Ratio] in Blood by Automated count 0 /100{WBCs} 0-0 [facility] [place] ID Date Data Source 12/22/2019 06:00:18 PM EDT [facility] Value Range Interpretation Code Description Data Mellissa rce(s) Supporting Document(s) Creatine kinase [Enzymatic activity/volume] in Serum or Plasma 53 U /L 20-180 [facility] [place] ID Date Data Source 12/22/2019 06:20:02 PM [facility] Value Range Interpretation Code Description Data Mellissa rce(s) Supporting Document(s) Erythrocyte sedimentation rate 21 mm/hr <30 [facility] [place] ID Date Data Source 12/22/2019 07:34:10 PM [facility] Value Range Interpretation Code Description Data Mellissa rce(s) Supporting Document(s) Rheumatoid factor [Units/volume] in Serum or Plasma 10 IU/ml <14 [facility] [place] ID Date Data Source [id number] 12/07/2019 04:09:39 PM [facility] Value Range Interpretation Code Description Data Mellissa rce(s) Supporting Document(s) Progress Note [facility] OQJKGk3iRsKXGrBu44/DGWbaAMHha8WvKEwpQKz7KEooQSIbA6KvDKC4dU0cGGT1UGxTLsVqBlEwFCQo lbm RnStgFDwCzJJRlRodDHoBwOWxwXazcrMZiJY6OyFM8NATnH05uNJAlGOYkV8UhFKV3Jcr+Li1JCZSacD KoUK9OLunF3B5hh4hGWO0oRS/HngHkEHPZJQydxj72ixxF6nWfmHDANFe+QBQksRFJhaIcq7++uJI8x9 VdShQAIV9xK6iqeU6EvzaxwDUs/p7u8xQQgjaW/bf8 YYe7Pw9Id/+aXw50knyK2up1EDkND0KHDF+tmrp31q06A5pBM2eqp7dpUCf6uHBnVgmW3ivznw9Dux1q Dr9qftH9Dvws9XEh+D9Hwa5J308S495qvs7OR8whhQtNzhW77tUaxIjZXBMC96syAJy6CU9tppTa7DdT PDNet3GxA998O4JQ6fUz10rIBzkblOnA4Q4LrM3tN9 Ccz0vdLdQZpOQVsyuZMRx3MKdKVyErAU4ljXI/x3MiUnpOxDY7VY6ob3lsA9T0o7XMZ8IkhNS0KhF84v OeiYGfMc+gPQXs3IBgDEWWMYnhdXfU18G1Z0bBP3P2abisR4O4qNiSt3AL3jbb1OMKlB8Unxp30ie7GG LKpUtiwoE/sCPf+DTpst9tuganrniXVPyh4jXs8WjW k7V5wvJcffKJurour/nyRQ1LmRIuZhNzsiUaAuntVvCwlWrxPCL8qY3NX+uqf4JbgpLPlubYwb3TAlIR +j3zw8kc8cPkDZj9emCLqhRxmj7c+dBv9qRjy/qYuESpiV+erSklrCJDKm1qLounb6jX4LkNkIEZPq4e k0UuoOJRF4EiM+HZb89aI3pgPGpr16LnQSNBCPm/hodgson [file] IfUyKaPeIYfvCNYrAtYaPA0IWj7CIbV1LKY5tFQnXs1YQwReGUBJXvFyQC5GELl= ID Date Data Source [id number] 11/20/2019 03:50:28 PM EDT [facility] Name Value Range Interpretation Code Description Data Mellissa rce(s) Supporting Document(s) Progress Note [facility] OJWCJd9bOxFMCuHx45/WRIdgZZFjr5BuWJqlFNo4XCyxJUOrG2LzAYO1hM2aHDM4MIyPAjPkStWuQGI6 lbm [file] ICAgICAgICAgICAgICAgICAgICAgICAgICAgICAgIC AgICAgICAgICAgICAgICAgICAgICAgICAgICAgICAgICAgICAgICAgICAgICAgICAgICAgICAgICAgIC ANCiAgICAgICAgICAgICAgICAgICAgICAgICAgICAgICAgICAgICAgICAgICAgICAgICAgICAgICAgIC AgICAgICAgICAgICAgICAgICAgICAgICAgICAgICAg ICAgICAgICAgICANCiAgICAgICAgICAgICAgICAgICAgICAgICAgICAgICAgICAgICAgICAgICAgICAg ICAgICAgICAgICAgICAgICAgICAgICAgICAgICAgICAgICAgICAgICAgICAgICAgICAgICANCiAgICAg ICAgICAgICAgICAgICAgICAgICAgICAgICAgICAgIC AgICAgICAgICAgICAgICAgICAgICAgICAgICAgICAgICAgICAgICAgICAgICAgICAgICAgICAgICAgIC AgICANCiAgICAgICAgICAgICAgICAgICAgICAgICAgICAgICAgICAgICAgICAgICAgICAgICAgICAgIC AgICAgICAgICAgICAgICAgICAgICAgICAgICAgICAg ICAgICAgICAgICAgICANCiAgICAgICAgICAgICAgICAgICAgICAgICAgICAgICAgICAgICAgICAgICAg ICAgICAgICAgICAgICAgICAgICAgICAgICAgICAgICAgICAgICAgICAgICAgICAgICAgICAgICANCiAg ICAgICAgICAgICAgICAgICAgICAgICAgICAgICAgIC AgICAgICAgICAgICAgICAgICAgICAgICAgICAgICAgICAgICAgICAgICAgICAgICAgICAgICAgICAgIC AgICAgICANCiAgICAgICAgICAgICAgICAgICAgICAgICAgICAgICAgICAgICAgICAgICAgICAgICAgIC AgICAgICAgICAgICAgICAgICAgICAgICAgICAgICAg ICAgICAgICAgICAgICAgICANCiAgICAgICAgICAgICAgICAgICAgICAgICAgICAgICAgICAgICAgICAg ICAgICAgICAgICAgICAgICAgICAgICAgICAgICAgICAgICAgICAgICAgICAgICAgICAgICAgICAgICAN CiAgICAgICAgICAgICAgICAgICAgICAgICAgICAgIC AgICAgICAgICAgICAgICAgICAgICAgICAgICAgICAgICAgICAgICAgICAgICAgICAgICAgICAgICAgIC AgICAgICAgICANCjw/iEWyJ7kozOCbvlG1B9iuEx6RDu3CCF4jo1BuNCGmPPljlbLwDcqFEzItWZKnMq aQIxr5XFexHN7DtUXtG5WjQ7MvUBwiVU8QKIOxKFAy gFDvVZDoCZOqSvZ4MAQqBXprIY4RsDPrUYzaGEFhAGRhQzTsBFLbLYIxYXAwVWZtHAPPWD4KBdLcN9Zv rS14YCEJVw4+GSyykhYlWhkZYvO3KPNgi3GaXZz9OH7XFQTnPeccp3LkLqdfVBKFZKziWS7CMMP1RUJ2 SNXcVm0WJPAtV597prXwFX4JPv2KGwXoZF3dyr8AOn raKYEtHavNGrm1QAmyFY0PdQEySMrZpl3hnsZrcqUNu6QkcsOjgAUQCDvgWMLRCMnsDvlbCqTmETKdEY 5mDT3qLSOzMHZnAtPzQHMMYT4BHJZvOAEfuZAdSHDlNFIHVZ3UFOxpHJI9SMIwicHsvCCqPWcvUD1MNA JlbnQgMjggMCBSDQo+Uq3JNU3vz0QzLAkwKUMiBH1b cn2URPlDRoTmA2N1fLGpO5I2UWetTv7SMNCdOQGwLkVoHJYDBNyqQD4ZUW3zvbV2CZ4KpIJbILIqYNZw zTBeHEq7T17xnCQzVBvdNJ6BVPB+Isiah+Cy6FNTEpLUSqBBMyHqIsCSETPkBrW8ZtF5LFf6NkE1WzNX40 jXxminLaSKksBQ6KHP6iFCXjMFRAPG8BaEHstL3mgn XmZVTpFMBUTlGoE45ucPXpPCNyOGM6WZVyYf8FRDRhB5BmogRtuYvccqOeTUKrJLWNES8PJLsahoRkcE TzsRvyAW73xExvZG4JXi9OIoEnJN3ong3IeCDaKe0KEAVgQC4EQNTbOCNkNXCjBET7AZAlCyLfWQbiED TmTKOlPME5IHVuAXYcJX3LXwWgCQYlYrs4OsefOZGa WGVvuv8JIJLyVBBeVHW0SdLxZUNvQHVuNZupYSYnSKLkOKB7DXQeOKFvYF2PKjSwUWQtDSJ1RYwaBHZu JVAxsb8BVTNtIGPxOAgoYvVlZYBkIQHjOQteZFFxPFS1QQnqFVCmPHZnMG6ZCrYyVIStOJbnMiEfPECu XSJccl9NPZPlMJZpDSIdHyOtKLWuJXXvCWpqQSGaXP DuLDX7ROYuHNSmMC7KKjFoEPEfCTX1LajcDFCqAHOabi7DHNGeZJOuKtR7YAAbJTSwEIXvVJttBJOcWT VxENW4WAFfOKEnRK8GWpTvTOUcKGQtWFBoWZCeIYJixj4PKPQaNGEgNgJ6ZCBfBYWeGFFrWZahVOFqJM H7AQNiJIUwCLCuAO8RGvPyZTEeXIH5QNSiSDGxWEYk tn1XBLPwXDZqTHjnYiMgNKSpQHIzHAraSDKnJFG4IdCeBPMxSICcYD4FQbUcOGItZrI0IUuwGXUdWTLl ce4DJOTsDPJaWch8JkBbVAJeTORgQHqdQWNzSME1RWO7GHDwHZPmIT9LSkRsQJYkLkscSWXeWZXpXXYw ho0LNUHyNKSgYQUiUgTmHJDeJSIzMDamUFEuRDH1Ib D9DAKgVZIiWL8ULeKfIBMiSzn9OPVqYEUdAWOcut5IMJIkETCbSRvhRiDrYSIwWNJgAEigCEVrBZEgFh a4ZMNaADLdMB7COyInIIWfAzW0LSWnSZVbDUKcxu0SGWToHKWlLMM1TgSnQOKfPETeZQi7beUseGRbTT t0UB8OF1LcpiRvFrQYWx5Dy811NFRpGSHdOb1IJ0rg Tr0rUSRiGMZWRk2OJCt8VyB2LeCiBTpeZHReNbKwUjkyLgJsNROdTLFgHlQbF4L+DIhtQcYcNDC7EHUz MaRnPZYiJ4IlLUKxN0V0EBD5ZIHtVI7yJXIFLc9+PApinXKuaBtyVPPCOoJoTOCoLWgqVTTRCk9T ID Date Data Source [id number] 2019 08:50:47 AM EDT [facility] Name Value Range Interpretation Code Description Data Mellissa rce(s) Supporting Document(s) Progress Note [facility] ODWPNr9zLbUEOkAz57/KTMawICTyq0OjQIubIXn6ZAxoFQPjJ0AqJBR3mU2yOFW1AOzEOmAwHqNxMJT4 lbm [file] bZLDVM7AWTWpMXuJiLsWzwe8B4NmGQ9IZdpo// [file] ICAgICAgICAgICAgICAgICAgICAgICAgICAgICAgICAgICAgICAgICAgICAgICAgICAgICAgICAgICAg SJTrDDPaNNDwPNPzJGXdPQJoZJMhZUZjXXUeWGZsDLIwUL2OUMXpEESrFEFwSSYuAXNdJTArUJKnWQTe ICAgICAgICAgICAgICAgICAgICAgICAgICAgICAgIC IxHOMyGRZmAURnJFXlQSWwIKNoYBTxIEItWIIbAOWqFUIpVYIkHQDnTKTnYC9CFPHiLZTqIHUoLPHrQO AgICAgICAgICAgICAgICAgICAgICAgICAgICAgICAgICAgICAgICAgICAgICAgICAgICAgICAgICAgIC XkLZRyCULkJQRdLBChXLQlAERxCJKiLERcQP5OEYCt ICAgICAgICAgICAgICAgICAgICAgICAgICAgICAgICAgICAgICAgICAgICAgICAgICAgICAgICAgICAg PLPhHBXmQABxJQIgRVBpVHIyVNVfKQWpAXBfAQMqIEOtEMCmLU9RCPQmYAFsCCOoRQKoVIOzNZErNGNy ICAgICAgICAgICAgICAgICAgICAgICAgICAgICAgIC YrZLRxVHGwKRDsSTBiZWVkKEPsZHCxNVZtEIIaJUWtZNNxGKEmBTJlNSXwBYXdVE0UEQMkSLMnGZJvLS AgICAgICAgICAgICAgICAgICAgICAgICAgICAgICAgICAgICAgICAgICAgICAgICAgICAgICAgICAgIC IaVWIgIEDtHXUgICRbGZKbTMLjKWGrCUZeJIOuSK5P ICAgICAgICAgICAgICAgICAgICAgICAgICAgICAgICAgICAgICAgICAgICAgICAgICAgICAgICAgICAg MWXfJKRyIHBgYNYuGCQsPUMtJRHvEOEqROHrMICuZFRwIFYuRVYmWJ5AWPHmIVWaTGLyXPZoOXDzIDWv ICAgICAgICAgICAgICAgICAgICAgICAgICAgICAgIC CpCLOxLVEdJOYsNTGyZWHzHUTvVUZnKRGxKANoFWTdXMGqCMBlXSLqSEXeXJPsUJFaYA7UQHXkQGDyIT AgICAgICAgICAgICAgICAgICAgICAgICAgICAgICAgICAgICAgICAgICAgICAgICAgICAgICAgICAgIC AgICAgICAgICAgICAgICAgICAgICAgICAgICAgICAg EZ6VODBzRUBpJVCnMXQyIEOqMDZyGJOqRDQaVDBkQIPaFAHpOTKeLPBvXDRuGIWvHOUkSMUjMHElUPVu TGLtHRBaRWKnVVOnRQYlWEAjIGHpMKZdZWEiHQFhNDEiUXRcNKMqKFDjAC1AHW76qBWyx8K0ULOkZB7z dyc/Rd4CDLxeeyBrnXBdXC4UAhQeJT1nir9EZaXeSQ 8qqa8HMWxOIwYfN2V3rUPvVLRlWNXBYnHqI99iNMfoOy61KNvgDEBtCiSgWXh8Hu7ROtLqW3zyBWCfWe Q4BTQnEgB8GJWtXaZzUHarOU4Jk4PjfPRbYOy+Ah0QOU5pa4RjGFsbCDJxKM5zbh0CNTvOYkTjL5Fgym D1KWS1LVMfMf4HXHCsHXAujQXjRVEyZKWHIzWyO3Ko fT17SBAONw2+BXfovwGeMsxIHqZ1YJQtk1XaLNp8CW0BWTLpPBh1iBIjXNGaX0Kid6QcTf31CLJuZxos FISkmpUHPKVwbCKbDD6YVAT8CXnmSL1gEQCpYCW1PaEpBZWXIL7FLGPoTPCemBWdOUPsESVGKL1QFNgi ORG1RFIzovAikPDbJBbdPF5KWZDeitKjZlKjUEDYFP o+Gw5ZIJ5dg3SmXLfbOjCzQU7bxz3TQAnJWxAkJ5B0yHWrK2N6QIjgHj3CBNOsFUVsRlBbPWDRXQemXE 7RGU1rboK3IN4FgRRjVYLqPFDdqTTaEYx8W71iwBYaAErePE8MUIZ+Isiah+Lq1AWOVlKHMjFWFaYnMkIP BHMzNtN4AkD2EAj3JwT3KvIO99xJbcsmHnOSxpVU9T LQ0oEVFxFLJINQ9LcEAagY4bgmNlQQJlVXRWUfIxK17xtOHkOJHzUQNlLVHmTa4EABSiD7ZwuwIhvGgr yyZnAPOsVYZMUF2ACNugegPdlZUwvYsdGL62rEhrUJ1NKq1PJoKyOH9ucn9BxAQqQp4TPDBgRw6FUMDh LLBnNEZhAEM7WMRoXtKuFYmgRVWtIRHeISN1DXIvVP JtQT5QFyCzVAHgZiRqTCLoQQSiXTChsb0NFXWaEWTlFwg8MKKxVEXwDAOnPDtuNSIzYLVyHCP1FSPxXP DxKC0OAdHvHIZqLPR1WTgnNKDtAHKjfy9UQBNwLOQbMXrgVkCyZPZzZVWmSNfvQUEoFIX5EMlcDUXaEN XfII3NHxGaVGDgPGD7TfmkGHQhROXinq2YINKmYTNt LcylGrCeOPLvUMQlHGjyQMOhPYN8VELpORDlGGOlJX7CDnJkPTLqHZifXWUlPBPaZOUkrq9UYQGhFLPs HBL5NeNaFGQkAIEbOLdgMJPwHVE9Bqw8XOIsNAIjKT2HJbRpXAWeICr6AxLnGHCoDIIoun0XJFKgEQIy OTgxNyAwMDAwMCBuDQowMDAwMDIwMTMzIDAwMDAwIG 9QTeBsHZSbHwDdNKNkXXDoDWUwme9AZPSlYZTnDVR7LoYeTGQjHYKpHFbzBZUiIYBpTsF7BLPgLXCmLW 6OEhIxZCDlVfH9EzTqQQJqJXSzao2ZUFNaWAZgHBx1AwJpXWLxITFqCIzuXDEnXGYfUBL0DAPuXXLyHR 7TYpZjBHXrOvQ6OFKmOUCuYYFlqd1ELHBgKNEkGmt9 HZQrMDNdSOKvRZdxIMPpNUSkVVA3MWNnDQFtXI6FCdKiAJWbFzJbPAEsYCCrRSYbmh3XjNXnwTicgj4E UUbPOn0QbGxtVZK9VHmsFu9qtRZwKxLnSOKBKx5QlqVuRMMoMDJPLOswLZGuXEH8CJDiVgxtKSttF7R4 OSKmANClEnaaAdP5WiO1Bsh8CyI5CLMvYnX2AXXmNp ZkIKwwCKO8OyO9KWCeHmCgGWHhAxP+ST4kIJx+Dk3Ap0GcsgA4dkJxBFlpECF3MI6AMGULM8ELPy== ID Date Data Source [id number] 11/04/2019 11:46:18 AM EDT [facility] Name Value Range Interpretation Code Description Data Mellissa rce(s) Supporting Document(s) Consultation [facility] TMJTYm6gUjSPEaUo37/ITKawXRQna1NfYJyfIHc4MDahIPBgT4MfXQP6uA8cUOJ7ZUbLHnInSkEfOqC2 lbm [file] MTU+TT7lHYo+Iz7Eq5CemuF8miZeNEt2GTF0QU3RHJBSC7FFSh== ID Date Data Source [id number] 10/28/2019 05:29:47 PM EDT [facility] Name Value Range Interpretation Code Description Data Mellissa rce(s) Supporting Document(s) Discharge Summary [facility] BZWREj8zSfRQUpFu67/OCInlEOMnd9VmAGunJFz2QTohFDKwV0LhEPO4cY6mLKM3RHeIImDnMwPlZcZe lbm [file] analysis [file] AgICAgICAgICAgICAgICAgICAgICAgICAgICAgICAg KTGtNFUfOGYgEWZsGYGiANVgZYZjSMCjOYFlYB2QJANrTQZtHSPpYCCzLCBaUWKcAFDjNZLmFLYoRHRj ICAgICAgICAgICAgICAgICAgICAgICAgICAgICAgICAgICAgICAgICAgICAgICAgICAgICAgICAgICAg IUGfQPPzDJWnWQ2UIKVrHFGhUHZoDHItCZGzYBNsEC AgICAgICAgICAgICAgICAgICAgICAgICAgICAgICAgICAgICAgICAgICAgICAgICAgICAgICAgICAgIC WhFRNzWUJbLFUvKFZaJYHfJGTnPS4IDBAmPXTbRZJqFWXkGQDoURGkSWHxTPFgCUOvPOLlPGJkHBUrDD AgICAgICAgICAgICAgICAgICAgICAgICAgICAgICAg MJJgJXDtYDWjZHVcPZLvHDNuBXJhWNLpWKZnYUWeAC0AZMLrRZNuHFXtHYPcCJUfQCEgPMByDEHsZUDn ICAgICAgICAgICAgICAgICAgICAgICAgICAgICAgICAgICAgICAgICAgICAgICAgICAgICAgICAgICAg YADgRVLpEMZsTSVbNP8RWWDwLQItYZVwONZhXTWlEI AgICAgICAgICAgICAgICAgICAgICAgICAgICAgICAgICAgICAgICAgICAgICAgICAgICAgICAgICAgIC HrJGCbUGOhEWPzVQJcNSOuKZUtHDAvOE2NFCCtZANwDDKlZGDzQSGaAYNzYXJzQXTbEFAmAISgUROfCV AgICAgICAgICAgICAgICAgICAgICAgICAgICAgICAg IMEuLJSnBNKbEKTlOWJhYARzBLArSXZkSQHjXCWrZAMbIL5SWEEuSERjIRGhTCVoXYZiWKNtRHSiKTRe ICAgICAgICAgICAgICAgICAgICAgICAgICAgICAgICAgICAgICAgICAgICAgICAgICAgICAgICAgICAg PGXqDKYvSOFjABZhDSKoDP1IYDGoIMGmKZJaWHKhPV AgICAgICAgICAgICAgICAgICAgICAgICAgICAgICAgICAgICAgICAgICAgICAgICAgICAgICAgICAgIC FgLYJmBVDhWDOqGTFvUMEjOLFrNLPaFQKcBT8PZDQzJZVtYJYfPAXtUMDeWIVjEBExGRPjLVEvJMZsWB AgICAgICAgICAgICAgICAgICAgICAgICAgICAgICAg MDLkYSSeILFvQZIdMMTfIJAoHZBvEDVwSHNaVAHaDYHlVFDgXL3GTN45aKOyn8K3FRIpXY9ngnw/Pg0K JZlbotEcaSDhGC1XJuPpVB1srw5QEhKzLV5vpy3MDRgIPvDeA8Y6zOWvKGZnBSKTAwIiW10cGVccRq14 YHnnNDRzZqJpXMb4Kh8TScQwH0hvFKIzKfE7TPHaLh G7QREvYbB3NEPnPoRtRWJkEYZrKZKzYFSUHRU1SUFsJcPiZZdmWH9Nu5HkcQI9AKu+Xq4PVW0nv0CmWN hwIaNzBV4dot1LXOnNAdSxJ7DrqpR0JVGsNSSiVy4QMJHbTZBrhSEwIzYhZUMANjJsI8MqjU11DHLJLf 4+YPuoivPdIbrSBqTtDMGco0AhYOq8VB5PPPPeMCw3 iDUnJBomZ7syaxrySFJ0dV1xwoppBramY9kqnmVvqGIjLWuzE4jwhHCggYrzIBGzAUZoBq8qYa6kHGPw NIAsHqU8DEVOPM1YIMRhOPBquPBzHWTxMUNBYI0ROEslDLQ2JMSpppZrlTKvTAueTQ1KIWXrbdMmFqZf MCBSDQo+Bc9QPD8mr6ZxKCcoUXSsQT0cfb7SEBmHYm VxM1I8yYKhG4W8WXveOm9APNFuZAVmKiKhWPLJDEbwVU3JYL3ximT8HW7FaYTcVEZvRNNrrCLaRZq5X1 4hwYHwHRnnDM7PEUJ+Isiah+Mw4RPMNlUQSyZPJkRjJcEOCHNdNtX5RxU4XPg3IlR1MeNN17jNuulrCoTY yoII6DGQ6cIUPvPZCRCU0ErWRedE8ppxQjVoFwKIJU OvQvX92weLXgYUXxZZIkORArKw1LCYZtV8CeidIkcFoaigVdRQWcWJCUDI5GOGzhhqFhbYZrnLboXS71 jWidVJ3QUh9GCvViHL1avk7PaFZoGz3LZEJqUN3ITXLlPCVlBOJfCDJ3VDMqQvKtXDlzYNJjWZLmBNB9 BYQqNMJqEJ5RCnDlCYAkWfj1KXatBLVvOFUflw4QNA OhODUwHSX4DNJoIFPyKRAjXDvgDUPvXLLeIUT5QBItLBVaCD9TDuEhHDNoIFHuSGTlPSMsVBSqkk5DZL CpVOSnERJ2XYZiYWEdRYAmVCaeOZIwLDU9ARb9VRJhSKVuUH3PWfPbLXNvMLpzGHDmLBKrGYSwtc9AHK IxTZNhCfO4KWQvYLJxDSCpCOpxMQTfDMLjPlk6XAIr OUIfBB9MTpYiDFSoTONpZfQtVBPjQGOoyd6VUOUkYJPuIYQ2PwInSMFnUUQqOWkoJRNcIZN0NBYqABTj MPVcRV4IEuBaRAXsWMcrTMohCTCqBULtpc6UVGWhJSHtGZkpZcPxFLIoORWlYFxaSUHeMVZ4AEXgJKPt NGSwIY8QAbRmHTUrUaEkBkCjOLHfEIBfkq1GNCAnTQ GyOYR9CVEcNZZhKLJtDZqwSYMoFYBrBUVnCZPgKMQjKG6TQmXkAXLiJrQ6YQNaUKXbAUVbct5HIPMpXJ EaZDEnUxHzCPIsAEEjGNejJGVpMRBaSLTkWXJoEBQtIY6JMlDtRWDtDrN1UsRoBRBlCTCbmm9YRKUwNF MzGgp5ZXOgAICaOFZpLMnmXBIyYWSsYXQ4LKZjYPZd UH0ATcPaGWKmSsfbRGRnOEYlZMCrpc6GWXEoHPXyJJSoVELxEPVtRPAmLZrxDMXeAZK1ZKGlZKSnSIEn MP8XXlItKWHrUjv2PFQnVWYxEBNfep4LMJQeFPJsOGrlTpIeTGDpWJGeVWcfWFIwZSA4HyW0UOIqVZGm KE4KFaCpRQZzDjU4IPElXLSiDCHeip5VUBNmIGQqFL b8LmGsDRLfSBPkQFetIXNrSNVoKPQeYMPzWMVtTI6NOhUnIJiqCUHNFni0PXalT1r0GHYbCH4PY2Jsc4 XkPsMtLIUXBPhoJH1mteTcXKGvXp2ZC8yUSbt3HxP1BCLhPKFdAeM9QOS7BYRfMAP7EeNmOiZxLFMdBz 3pGUExVxXrETGoBoO2MMCpJptmLLZwFQSvJQGlQQWj SKQ0OpQtBG8NJp9THaO9DIU4nOYkWm5IIgIvIOsICwXnKR0KRFn= ID Date Data Source [id number] 10/28/2019 06:24:14 AM EDT [facility] Name Value Range Interpretation Code Description Data Mellissa rce(s) Supporting Document(s) Leukocytes [#/volume] in Blood by Automated count 9.7 10*3/uL 4-10 [facility] [place] Erythrocytes [#/volume] in Blood by Automated count 4.19 10*6/uL 4.1- 5.3 [facility] Hemoglobin [Mass/volume] in Blood 11.5 g/dL 11.5-15.5 [facility] Hematocrit [Volume Fraction] of Blood by Automated count 34.8 % 3 6-[address] [facility] Erythrocyte mean corpuscular volume [Entitic volume] by Auto mated count 83.1 fL 80-96 [facility] Erythrocyte mean corpuscular hemoglobin [Entitic mass] by Automated count 27.4 pg 27-33 [facility] Erythrocyte mean corpuscular hemoglobin concentration [Mass/volume] by Automated count 33.0 g/[facility].0[facility] width [Ratio] by Automated count 15.2 % 11.5-14.[address] [facility] Platelets [#/volume] in Blood by Automated count 261 10*3/uL 150-400 [facility] Differential cell count method - Blood [facility] Neutrophils/100 leukocytes in Blood by Automated count 53 % [facility] Lymphocytes/100 leukocytes in Blood by Automated count 38 % [facility] Monocytes/100 leukocytes in Blood by Automated count 7 % [facility] Eosinophils/100 leukocytes in Blood by Automated count 2 % [facility] [place] Basophils/100 leukocytes in Blood by Automated count 0 % [facility] Neutrophils [#/volume] in Blood by Automated count 5.12 10*3/uL 1.8-[address] [facility] [place] Lymphocytes [#/volume] in Blood by Automated count 3.70 10*3/uL 1.2-[address] [facility] Monocytes [#/volume] in Blood by Automated count 0.66 10*3/uL 0-0.8 [facility] Eosinophils [#/volume] in Blood by Automated count 0.14 10*3/uL 0-0.5 [facility] Basophils [#/volume] in Blood by Automated count 0.03 10*3/uL 0-0.2 [facility] Nucleated erythrocytes/100 leukocytes [Ratio] in Blood by Automated count 0 /100{WBCs} 0-0 [facility] ID Date Data Source [id number] 10/28/2019 06:52:08 AM EDT [facility] Name Value Range Interpretation Code Description Data Mellissa rce(s) Supporting Document(s) Prothrombin time (PT) 12.2 s 12.5-14.[address] [facility] INR in Platelet poor plasma by Coagulation assay 0.90 [facility] Routine intensity oral anticoagulation I NR is typically 2.0-3.0. Target INR must be clinically individualized. ID Date Data Source [id number] 10/27/2019 07:34:12 PM EDT [facility] Name Value Range Interpretation Code Description Data Mellissa rce(s) Supporting Document(s) ED Provider Note [facility] GMAFHa7yYcIBSkMr79/FLEusWZUgi4MzFIchDUx8PBdqNYRfT1OaASW9vH8xVEQ6AHkUOqHrDqSnQrPl lbm NtAsaRVhIwOSMzSbhJHfVtMZahXnhatBMuMD6GnNU1AHQfR24kEKCoWTGpO1UrDSUmQVe+Lc5DYVOobT BbYW9BJroL8H0jYbiFMv1nbt7Y/CQRxkgWp05dib4WFtrYqVXPVzkM2sUbJvWWEidKNamADj12nXB4bB 0velSawdLZqnda0Zou+rF1SZpt552a49GNnzTCa9in RdUL84b77e/T4qXSvOv8+JUNIg+Jqa637VGaA9l+/mFkbmh1e0yAhnsfzV1ZibbdkLDNecpARa9Hg/Vi /xnhNLY6GRwrX+zgZOnpU8Qd55n784zhk3HaTQ9FrlsU+LXyfDvBnjw809S5SY7xBj9PrkbknC8LBF6u ZVKYxkgzOr1uH5oBaiXjlVLe2Eqy8sOvOhbTGP5T9p zclxpHpC9DG1In1iSpBkfi2uHcvKcgoAtfvWwRHlXdx3oLqDCq6f4SYIIfXdWD0FlSmkRjGLqHAe8Ztz 6elxGPLW0EtQgN7R8ySBycvDoDGTmYbNrnbLL99Uu0ksP6OAVhDT0LHov2jjyxxdasIXtcW6ZHk3BX2d qAQbHwrGgkh6XYivFrfhL1+8Fox9HRFgECobyu8hxU IVgetEC189CWEEHMu/NF1mFwcAobfUmMjDk951npoiALoC7N7FyOpiHTZkmLReeTE5u6WGhGrMd9pVvG tgmvuYQBgQHziA8PLTTk5Ms8DxSIMfFDR5HOHWfqr37u70/OPubkAepXj4RcJ+lpoygckB7ty2E+Gi3v eudeaH0CY4f7bFsHz7y2lOwi3/cjCUiSi0cxtN5+fF R03ilVTV8iBEhAmIeOv3k3gxIsyRhZpYef3j/qmNfu41OkO4wxcjRb0ZgnQDfs3vW76QvEHZsmdcZk70 SAMIA+HPQmDbCX/EErJSTngBSLatMJf79iGmafWRmlUBR1fI0hmjo+cxRNdwvZI6+4RMcle34onIEeaKni [file] 8Ux5UfhjS4ioWsOBk0YhP8XP3KQAIGQ3XAAb== ID Date Data Source [id number] 10/27/2019 05:40:10 AM EDT [facility] Name Value Range Interpretation Code Description Data Mellissa rce(s) Supporting Document(s) Leukocytes [#/volume] in Blood by Automated count 8.8 10*3/uL 4-10 [facility] [place] Erythrocytes [#/volume] in Blood by Automated count 4.04 10*6/uL 4.1- 5.[address] [facility] [place] Hemoglobin [Mass/volume] in Blood 11.0 g/dL 11.5-15.[address] [facility] [place] Hematocrit [Volume Fraction] of Blood by Automated count 33.6 % 3 6-[address] [facility] [place] Erythrocyte mean corpuscular volume [Entitic volume] by Auto mated count 83.2 fL 80-96 [facility] [place] Erythrocyte mean corpuscular hemoglobin [Entitic mass] by Automated count 27.3 pg 27-33 [facility] [place] Erythrocyte mean corpuscular hemoglobin concentration [Mass/volume] by Automated count 32.8 g/dL 32.0-36.0 [facility] width [Ratio] by Automated count 15.5 % 11.5-14.[address] [facility] [place] Platelets [#/volume] in Blood by Automated count 274 10*3/uL 150-400 [facility] [place] Differential cell count method - Blood [facility] Neutrophils/100 leukocytes in Blood by Automated count 52 % [facility] [place] Lymphocytes/100 leukocytes in Blood by Automated count 38 % [facility] [place] Monocytes/100 leukocytes in Blood by Automated count 7 % [facility] [place] Eosinophils/100 leukocytes in Blood by Automated count 2 % [facility] [place] Basophils/100 leukocytes in Blood by Automated count 1 % [facility] [place] Neutrophils [#/volume] in Blood by Automated count 4.69 10*3/uL 1.8-[address] [facility] [place] Lymphocytes [#/volume] in Blood by Automated count 3.31 10*3/uL 1.2-[address] [facility] [place] Monocytes [#/volume] in Blood by Automated count 0.57 10*3/uL 0-0.8 [facility] [place] Eosinophils [#/volume] in Blood by Automated count 0.19 10*3/uL 0-0.5 [facility] [place] Basophils [#/volume] in Blood by Automated count 0.05 10*3/uL 0-0.2 [facility] [place] Nucleated erythrocytes/100 leukocytes [Ratio] in Blood by Automated count 0 /100{WBCs} 0-0 [facility] [place] ID Date Data Source [id number] 12/21/2019 06:56:24 AM EDT [facility] Service Cmnt XXX-Imp : NoneAcid fast Stn XXX : No Acid fast bacilli seen on Fluorochrome stain.Microorganism XXX Cult : No growth 56 days Name Value Range Interpretation Code Description Data Mellissa rce(s) Supporting Document(s) ID Date Data Source [id number] 10/27/2019 12:55:31 PM EDT [facility] Service Cmnt XXX-Imp : NoneP jiroveci Ag Spt Ql IF : Negative for Pneumocystis jiroveci Name Value Range Interpretation Code Description Data Mellissa rce(s) Supporting Document(s) ID Date Data Source [id number] [facility] : NoneMicroorganism XXX Cult : No growth 28 days Name Value Range Interpretation Code Description Data Mellissa rce(s) Supporting Document(s) ID Date Data Source [id number] 10/29/2019 04:07:56 PM [facility] Name Value Range Interpretation Code Description Data Mellissa rce(s) Supporting Document(s) Galactomannan Ag [Presence] in Serum or Plasma by Immunoassa y 0.09 Index 0.00-0.49 [facility] (NOTE)Performed At: [facility] [id number] [place], [place] [id number] Benoit MD Ph:[phone] At: [facility] [id number] [place], [place] [id number] An[facility] Ph:[phone] ID Date Data Source [id number] 10/29/2019 07:29:37 AM EDT [facility] Service Cmnt XXX-Imp : NoneMicroorganism XXX Cult : No growth 3 days Name Value Range Interpretation Code Description Data Mellissa rce(s) Supporting Document(s) ID Date Data Source [id number] 10/27/2019 08:16:[facility]-Imp : NoneMicroorganism XXX Cult : Culture not performed due to a COVID-19 safety advisory from the [facility] Name Value Range Interpretation Code Description Data Mellissa rce(s) Supporting Document(s) ID Date Data Source [id number] 10/26/2019 01:45:35 PM EDT [facility] Name Value Range Interpretation Code Description Data Mellissa rce(s) Supporting Document(s) History and Physical [facility] QDLKBb3cKmDKQsBt22/UMIewZEBfd0ZsCGubDJw0WYldWROoR0LnQSH5cV0kTDJ3ISuBXmSqSbSnMuEo lbm VqHnrOCcFiAIEvIdyDRjLnVSjpDxnsvRKdJY1NdKK1GUOvO84sYPSvCBDsB9YvKFI9DPL+Sy3QXAAerN YdDW4HBesW6Zsyt1v32hwG3p7JPGW8NJUVvkurp4rKtsj2kJX6nquSXghr6StQwSLHojP07p2TW3F7qL FbTWHjDVvumwlrNG9C4+IhMlb8+z050mSnfPQ/tz+9 wGK3C/jQT7nrl92js+1+dj3kqUT15aWN8x+2+O4E2dV3/andNZpu6RQL58g5TDBkcMdKfo2bj0LzKv5z v8H7DTiO+5V1JfWFUtDy1q5//sgm/8tzNkuGl8peqnO1HBnyjdMDBstSgmuOtIeZoxbNJBcmGSAquy0Z quWPnzSlhqR4U0cCJZWC260X8WI2aubqs9tmd4lupb Qu85Nr3ZuOlSnCsK27GT8Z4cVab2HaLJWaC0LAPJn5zlq1WIvcy8eEY/DkjpahKT/LFCfRnzgzAzdTHi 2fxwMuCf7uy1zP68Ccllg1C36qr5GljKbJc5oBFbKYRp8RPoDhdX4hH1TmzB0foUYntEgbAFdfzI/adam [file] ICAgICAgICAgICAgICAgICAgICAgICAgICAgICAgIC AgICAgICAgICAgICAgICAgICAgICAgICAgICANCiAgICAgICAgICAgICAgICAgICAgICAgICAgICAgIC AgICAgICAgICAgICAgICAgICAgICAgICAgICAgICAgICAgICAgICAgICAgICAgICAgICAgICAgICAgIC AgICAgICAgICANCiAgICAgICAgICAgICAgICAgICAg ICAgICAgICAgICAgICAgICAgICAgICAgICAgICAgICAgICAgICAgICAgICAgICAgICAgICAgICAgICAg ICAgICAgICAgICAgICAgICAgICANCiAgICAgICAgICAgICAgICAgICAgICAgICAgICAgICAgICAgICAg ICAgICAgICAgICAgICAgICAgICAgICAgICAgICAgIC AgICAgICAgICAgICAgICAgICAgICAgICAgICAgICANCiAgICAgICAgICAgICAgICAgICAgICAgICAgIC AgICAgICAgICAgICAgICAgICAgICAgICAgICAgICAgICAgICAgICAgICAgICAgICAgICAgICAgICAgIC AgICAgICAgICAgICANCiAgICAgICAgICAgICAgICAg ICAgICAgICAgICAgICAgICAgICAgICAgICAgICAgICAgICAgICAgICAgICAgICAgICAgICAgICAgICAg ICAgICAgICAgICAgICAgICAgICAgICANCiAgICAgICAgICAgICAgICAgICAgICAgICAgICAgICAgICAg ICAgICAgICAgICAgICAgICAgICAgICAgICAgICAgIC AgICAgICAgICAgICAgICAgICAgICAgICAgICAgICAgICANCiAgICAgICAgICAgICAgICAgICAgICAgIC AgICAgICAgICAgICAgICAgICAgICAgICAgICAgICAgICAgICAgICAgICAgICAgICAgICAgICAgICAgIC AgICAgICAgICAgICAgICANCiAgICAgICAgICAgICAg ICAgICAgICAgICAgICAgICAgICAgICAgICAgICAgICAgICAgICAgICAgICAgICAgICAgICAgICAgICAg ICAgICAgICAgICAgICAgICAgICAgICAgICANCiAgICAgICAgICAgICAgICAgICAgICAgICAgICAgICAg ICAgICAgICAgICAgICAgICAgICAgICAgICAgICAgIC AgICAgICAgICAgICAgICAgICAgICAgICAgICAgICAgICAgICANCjw/jHRqH2oyoHMtzmG4C7aiFn2NWk 1JHM4xf6BvJIWzXKjxcxGeXhnJEdRaMSOeSwhDWax7GLasWO8GoDVoV7LyR2PxZTeuCD6RXNJfPKDqkT IzTXWiSPHsWvV1BXQgLAbbAY0LiATkOWhfJNRvWMFv FzQzOLRdWQSmSUSuXKYdNVMBTA8DEfPyF9RiqI43BOPXJi3+VJgzmgNbBjeKYrL6WFEny2NlTYo0JY3J GXNdRzajx7RwLoDcVDBGSWcaSK4GPMI8PRA1SVUbMu2SRHYsB230ykObOX7YSr5NSpRaQS5eiq8RFbYy ZYTvEbfUWem1UEhoZI0XwNVjFMdMBjApXoqdBFJnt8 WlIZUoIYyjWAtlr7bbKR3CNGW3PFstKbNlYmYzAACbVUz2OCGIXZeOPaBoU6Scy6DvMpV8MGHjCtInUJ blZUWoPcY0ET17aYbkOA8HBNCtDFYqKT03AOS6YWYwBc5GPh7QFxHnXZ4vhr4HIeGjBYBgRprQPkv6QX akNJ0WxNMeQ8OkpDAfy3yYXxRuY3VJEDMqEGTcDf2H NNMyOrMyTCOjFHhxLT6kRDXiTTABnRplbtX0XF1MEB2prfLyBT8UWxHcCy2jVu8WLoDwQ3HfI0CwPLFb HIYJEYqcCQ8FSAlrSP9vEI9Jn8ZXnYNmfO5xgq1VDTZwVRIgXdjdrx1VUzjaP0A8oVnwIMNrRlFaIOYO DMwuWQ0HEVOvGGM8AAUrJbTgXDDQAsNuG37rLQ5GP7 Laq30mKbA2SQTtBmYkUDidYO26aDmoxgRmtCUdcPjgXH6XBr9+DQplbmRvYmoNCnhyZWYNCjAgMzcNCj TjUKFwFEBqXEPhIuI9HwVlNh1NYTBdVRTrJEAjItVdPCRsOJTrDZpkDMAxVZE0VNv7AHLlUODlNF3XEs TyHBMdUmP4FXSfZCNxKENsui0PWXVmGBCeGHF4CzNp KSJnTPBbGZivFVGzVWSnOPvsVMYrQUQvVZ5IEoPmJUQkWLEkJEOdSMXhBKSmtb9DBKBpXRTbQfUwHKIv ZUFqGTHdXTkdFWEzDTE2CbD9CCBeAISvMF6BWsLkXOJqGAg2UVTxGXObIGRmbc4HHAWyYRGpLLRdAbSy PGXvGYKmHEqvCYTqACHbXuY0YXWhUFLdVI1YKcViTQ PvRSU7FrYhWEPiPCBbrr2DCZQeWZZdZTsuQONcBXLvEEEcYUlcZXPkZPByENJ1HRWrGIMpLV9PUlGiGQ LrGDUeHSZkXILrEHWxdx8QPPCfFACfDzX7YFWnTOUjOBCkWXkxGMIyGMCfNRutKOLuCURlKV1AKzRfTF DmGPE3TUucQHJmJRJrqc1XXEThWCDoVAEqAILoUZDp VQGhYNwoBOHuXMX8CKLdVIUrQSEiLB3IKkAwPVTgRPEzTSqwEKDmJTAqqi5SXQWrVITrTTp0USVeAPSz WWMgXAojOMPcQVH7CQB1LYRyFCJmRZ3LLpCxJEOcQRPcBTaiESTrBYPysf3BIWLqBRJfLcnzDtFfVROp RTAjDEmtJDGvLKT5JWOaMWTxLSNuGB2LTdLiPUVeBw qmBaUtJJMkVJGpwk2GFHHoXLKcYHO9ADQmBPFrMIYfFDnmRSIwESM5ZpT9TCYbCQJmKX1TYhLxQQGkEp i9MFuuAIGcEVXuzg7JKYRsDDZvOBc7SwDkUNFmTLZpOXswHUSkBIV1LKU4MOFfJOEsTP9NGvJxYYJkSi D6XAKsTRYrUYQqka9PJYLvWEBiPOa0IZHmAFPfYEFg MSiaOKHpSAWlGMMdVZHiQTVvNW7LWgWyLFFkWqGeLxWzGETeHLPuwx5ImPSiiAaljl6MKJpZZv0OnEhy AMF9VUupOi3ewUAtJsFgDTUHCe1BjtSsOEEsIVINQHqeELEgNMFpNhn3KrYqZkNqGublUWccHlEhDiAp XjA7YZQ9MzNfTvN2XKJ3JgvsTiV5TII7SWZcVRCgNP BgNGCnHDpxDRj0O0X+EM9kNUs+Ww3Lq0QsnwK8zpMhLVfrGvLpRh7VQCVNB6SOVc== ID Date Data Source [id number] 10/26/2019 08:21:20 AM EDT [facility] Name Value Range Interpretation Code Description Data Mellissa rce(s) Supporting Document(s) Progress Note [facility] WRLFZn4oDaXRKbOy58/ZPIabYUBvm1XoSJvcENb5MItnWKOuK3QtKWQ8hK4bIJC9OWqUHgMdTfBaZqAw lbm [file] WGU4lICaZq1WNhZ1QNEJLzMuBY7DGTl= ID Date Data Source [id number] 10/26/2019 05:11:05 AM EDT [facility] Name Value Range Interpretation Code Description Data Mellissa rce(s) Supporting Document(s) Leukocytes [#/volume] in Blood by Automated count 13.1 10*3/uL 4-[address] [facility] [place] Erythrocytes [#/volume] in Blood by Automated count 3.79 10*6/uL 4.1- 5.[address] [facility] [place] Hemoglobin [Mass/volume] in Blood 10.4 g/dL 11.5-15.[address] [facility] [place] Hematocrit [Volume Fraction] of Blood by Automated count 31.7 % 3 6-[address] [facility] [place] Erythrocyte mean corpuscular volume [Entitic volume] by Auto mated count 83.5 fL 80-96 [facility] [place] Erythrocyte mean corpuscular hemoglobin [Entitic mass] by Automated count 27.5 pg 27-33 [facility] [place] Erythrocyte mean corpuscular hemoglobin concentration [Mass/volume] by Automated count 33.0 g/dL [facility].0-[facility] width [Ratio] by Automated count 15.6 % 11.5-14.[address] [facility] [place] Platelets [#/volume] in Blood by Automated count 258 10*3/uL 150-400 [facility] [place] Differential cell count method - Blood [facility] [place] Neutrophils/100 leukocytes in Blood by Automated count 68 % [facility] [place] Lymphocytes/100 leukocytes in Blood by Automated count 24 % [facility] [place] Monocytes/100 leukocytes in Blood by Automated count 6 % [facility] [place] Eosinophils/100 leukocytes in Blood by Automated count 1 % [facility] [place] Basophils/100 leukocytes in Blood by Automated count 1 % [facility] [place] Neutrophils [#/volume] in Blood by Automated count 9.00 10*3/uL 1.8-[address] [facility] [place] Lymphocytes [#/volume] in Blood by Automated count 3.08 10*3/uL 1.2-[address] [facility] [place] Monocytes [#/volume] in Blood by Automated count 0.84 10*3/uL 0-0.[address] [facility] [place] Eosinophils [#/volume] in Blood by Automated count 0.09 10*3/uL 0-0.5 [facility] [facility] [place] Basophils [#/volume] in Blood by Automated count 0.08 10*3/uL 0-0.2 [facility] [place] Nucleated erythrocytes/100 leukocytes [Ratio] in Blood by Automated count 0 /100{WBCs} 0-0 [facility] [place] ID Date Data Source [id number] 10/26/2019 05:29:20 AM EDT [facility] Name Value Range Interpretation Code Description Data Mellissa e(s) Supporting Document(s) Bicarbonate [Moles/volume] in Serum 25 mmol/L 22-29 [facility] [place] Chloride [Moles/volume] in Serum or Plasma 98 mmol/L 98-107 [facility] [place] Creatinine [Mass/volume] in Serum or Plasma 0.44 mg/dL 0.50-0.[address] [facility] [place] Glucose [Mass/volume] in Serum or Plasma 88 mg/dL 70-140 [facility] [place] Potassium [Moles/volume] in Serum or Plasma 3.6 mmol/L 3.4-5.1 [facility] [place] Sodium [Moles/volume] in Serum or Plasma 134 mmol/L 136-[address] [facility] [place] Urea nitrogen [Mass/volume] in Serum or Plasma 9 mg/dL 6-20 [facility] [place] Anion gap 3 in Serum or Plasma 11 mmol/L 8-15 [facility] [place] Osmolality of Serum or Plasma by calculation 276 mosm/kg 275-300 [facility] [place] Creatinine/Urea nitrogen [Mass Ratio] in Serum or Plasma 20 [facility] [place] Calcium [Mass/volume] in Serum or Plasma 8.7 mg/dL 8.6-10.0 [facility] [place] Glomerular filtration rate/1.73 sq M pre dicted among non-blacks [Volume Rate/Area] in Serum or Plasma by Creatinine-based formula (MDRD) >[address] [facility] [place] Glomerular filtration rate/1.73 sq M pre dicted among blacks [Volume Rate/Area] in Serum or Plasma by Creatinine-based formula (MDRD) >60 [facility] [place] ID Date Data Source [id number] 10/27/2019 04:40:00 PM EDT [facility] CYTOPATHOLOGY REPORTName: NEREYDA COLÓNMRN: [id number] Number: [id number] Date: 10/26/2019 00:00Received Date: [...] stain showsabundant lipid laden macrophages. /cts/noemi Gross Jvswckiwucj86 ml langley cloudy fluid received: Specimen processed: [...] Name Value Range Interpretation Code Description Data [facility] rce(s) Supporting Document(s) ID Date Data Source [id number] 10/25/2019 03:33:23 AM T [facility] Name Value Range Interpretation Code Description Data [facility] rce(s) Supporting Document(s) Leukocytes [#/volume] in Blood by Automated count 20.1 10*3/uL 4-[address] [facility] [place] Erythrocytes [#/volume] in Blood by Automated count 3.94 10*6/uL 4.1- 5.[address] [facility] [place] Hemoglobin [Mass/volume] in Blood 10.7 g/dL 11.5-15.[address] [facility] [place] Hematocrit [Volume Fraction] of Blood by Automated count 33.0 % 3 6-[address] [facility] [place] Erythrocyte mean corpuscular volume [Entitic volume] by Auto mated count 83.7 fL 80-96 [facility] [place] Erythrocyte mean corpuscular hemoglobin [Entitic mass] by Automated count 27.1 pg 27-33 [facility] [place] Erythrocyte mean corpuscular hemoglobin concentration [Mass/volume] by Automated count 32.4 g/dL 32.0-[facility] width [Ratio] by Automated count 15.7 % 11.5-14.[address] [facility] [place] Platelets [#/volume] in Blood by Automated count 274 10*3/uL 150-400 [facility] [place] Differential cell count method - Blood [facility] [place] Neutrophils/100 leukocytes in Blood by Automated count 83 % [facility] [place] Lymphocytes/100 leukocytes in Blood by Automated count 11 % [facility] [place] Monocytes/100 leukocytes in Blood by Automated count 6 % [facility] [place] Eosinophils/100 leukocytes in Blood by Automated count 0 % [facility] [place] Basophils/100 leukocytes in Blood by Automated count 0 % [facility] [place] Neutrophils [#/volume] in Blood by Automated count 16.62 10*3/uL 1.8- 7.[address] [facility] [place] Lymphocytes [#/volume] in Blood by Automated count 2.16 10*3/uL 1.2-[address] [facility] [place] Monocytes [#/volume] in Blood by Automated count 1.22 10*3/uL 0-0.[address] [facility] [place] Eosinophils [#/volume] in Blood by Automated count 0.03 10*3/uL 0-0.5 [facility] [place] Basophils [#/volume] in Blood by Automated count 0.02 10*3/uL 0-0.2 [facility] [place] Nucleated erythrocytes/100 leukocytes [Ratio] in Blood by Automated count 0 /100{WBCs} 0-0 [facility] [place] ID Date Data Source [id number] 10/25/2019 04:08:21 AM T [facility] Name Value Range Interpretation Code Description Data Mellissa rce(s) Supporting Document(s) Bicarbonate [Moles/volume] in Serum 24 mmol/L 22-29 [facility] [place] Chloride [Moles/volume] in Serum or Plasma 100 mmol/L 98-107 [facility] [place] Creatinine [Mass/volume] in Serum or Plasma 0.41 mg/dL 0.50-0.[address] [facility] [place] Glucose [Mass/volume] in Serum or Plasma 111 mg/dL 70-140 [facility] [place] Potassium [Moles/volume] in Serum or Plasma 3.5 mmol/L 3.4-5.1 [facility] [place] Sodium [Moles/volume] in Serum or Plasma 134 mmol/L 136-[address] [facility] [place] Urea nitrogen [Mass/volume] in Serum or Plasma 10 mg/dL 6-20 [facility] [place] Anion gap 3 in Serum or Plasma 10 mmol/L 8-15 [facility] [place] Osmolality of Serum or Plasma by calculation 278 mosm/kg 275-300 [facility] [place] Creatinine/Urea nitrogen [Mass Ratio] in Serum or Plasma 23 [facility] [place] Calcium [Mass/volume] in Serum or Plasma 8.7 mg/dL 8.6-10.0 [facility] [place] Glomerular filtration rate/1.73 sq M pre dicted among non-blacks [Volume Rate/Area] in Serum or Plasma by Creatinine-based formula (MDRD) >[address] [facility] [place] Glomerular filtration rate/1.73 sq M pre dicted among blacks [Volume Rate/Area] in Serum or Plasma by Creatinine-based formula (MDRD) >60 [facility] [place] ID Date Data Source [id number] 10/25/2019 04:16:52 AM [facility] Name Value Range Interpretation Code Description Data Mellissa rce(s) Supporting Document(s) Procalcitonin [Mass/volume] in Serum or Plasma 0.95 ng/mL <0.[address] [facility] [place] (NOTE) < 0.25 ng/mL Bacterial infec tion unlikely,particularly lower respiratory tract infections.0.25 -<0.50 ng/mL Low risk for progression to severe sepsis/septic shock. Localized infection is possible. Measurement done early (<6 hours) after systemic process starts may still be low.0.50 - 2.00 ng/mL Moderate risk for progression to sepsis/septic shock. > 2.00 ng/mL High risk for progression to sepsis/septic shock. ID Date Data Source [id number] 10/27/2019 02:07:58 PM [facility] Name Value Range Interpretation Code Description Data Mellissa rce(s) Supporting Document(s) Angiotensin converting enzyme [Enzymatic activity/volu me] in Serum or Plasma 44 U/L 14-82 [facility] [place] (NOTE)Performed At: RN [facility] [address] [id number] Kumar MD Ph:[phone] ID Date Data Source [id number] 10/30/2019 07:06:38 PM [facility] Value Range Interpretation Code Description Data Mellissa rce(s) Supporting Document(s) Aspergillus fumigatus 1 Ab [Presence] in Serum by Immune dif fusion (ID) Negative [facility] [place] Saccharopolyspora rectivirgula Ab [Presence] in Serum by Immune diffusion (ID) Negative [facility] [place] (NOTE)Effective October 26, 2019 this isaiah t will be made non-orderable. No replacement number is available. For Further information, please contact your local [facility]. Thermoactinomyces vulgaris Ab [Presence] in Serum by Immune diffusion (ID) Negative [facility] [place] (NOTE)Effective October 26, 2019 this isaiah t will be made non-orderable. No replacement number is available. For Further information, please contact your local [facility] [facility]. Aureobasidium pullulans Ab [Presence] in Serum Negative [facility] [place] (NOTE)Effective October 26, 2019 this isaiah t will be made non-orderable. No replacement number is available. For Further information, please contact your local [facility] [employer]. Thermoactinomyces sacchari Ab [Presence] in Serum Negative [facility] [place] (NOTE)Effective October 26, 2019 this isaiah t will be made non-orderable. No replacement number is available. For Further information, please contact your local [facility]. [place]ack serum Ab [Presence] in Serum by Immune diffusion (ID) Negative [facility] [place] (NOTE)Effective October 26, 2019 this isaiah t will be made non-orderable. No replacement number is available. For Further information, please contact your local [facility].Performed At: [facility] [id number] Sanjai MD Ph:[phone] ID Date Data Source [id number] [facility]44[facility] Value Range Interpretation Code Description Data Mellissa rce(s) Supporting Document(s) Calcium.ionized [Moles/volume] in Arterial blood 1.21 mmol/L 1.13-1.[address] [facility] [place] ID Date Data Source [id number] 10/24/2019 01:34:[facility] [address] [facility] Name Value Range Interpretation Code Description Data Mellissa rce(s) Supporting Document(s) History and Physical [facility] CWWNPi2bBpNNAmGk50/NXSyuJWPry2JzUSgeOHf2HDusUFVnP5RkCQD0uX8qOAC2KUlNUcNlLtPoXxV6 m [file] AgICAgICAgICAgICAgICAgICAgICAgICAgICAgICAgICAgICAgICAgICAgICAgICAgICAgICAgICAgIC AgICAgICAgICAgICAgICAgICANCiAgICAgICAgICAg ICAgICAgICAgICAgICAgICAgICAgICAgICAgICAgICAgICAgICAgICAgICAgICAgICAgICAgICAgICAg ICAgICAgICAgICAgICAgICAgICAgICAgICAgICANCiAgICAgICAgICAgICAgICAgICAgICAgICAgICAg ICAgICAgICAgICAgICAgICAgICAgICAgICAgICAgIC AgICAgICAgICAgICAgICAgICAgICAgICAgICAgICAgICAgICAgICANCiAgICAgICAgICAgICAgICAgIC AgICAgICAgICAgICAgICAgICAgICAgICAgICAgICAgICAgICAgICAgICAgICAgICAgICAgICAgICAgIC AgICAgICAgICAgICAgICAgICAgICANCiAgICAgICAg ICAgICAgICAgICAgICAgICAgICAgICAgICAgICAgICAgICAgICAgICAgICAgICAgICAgICAgICAgICAg ICAgICAgICAgICAgICAgICAgICAgICAgICAgICAgICANCiAgICAgICAgICAgICAgICAgICAgICAgICAg ICAgICAgICAgICAgICAgICAgICAgICAgICAgICAgIC AgICAgICAgICAgICAgICAgICAgICAgICAgICAgICAgICAgICAgICAgICANCiAgICAgICAgICAgICAgIC AgICAgICAgICAgICAgICAgICAgICAgICAgICAgICAgICAgICAgICAgICAgICAgICAgICAgICAgICAgIC AgICAgICAgICAgICAgICAgICAgICAgICANCiAgICAg ICAgICAgICAgICAgICAgICAgICAgICAgICAgICAgICAgICAgICAgICAgICAgICAgICAgICAgICAgICAg ICAgICAgICAgICAgICAgICAgICAgICAgICAgICAgICAgICANCiAgICAgICAgICAgICAgICAgICAgICAg ICAgICAgICAgICAgICAgICAgICAgICAgICAgICAgIC AgICAgICAgICAgICAgICAgICAgICAgICAgICAgICAgICAgICAgICAgICAgICANCiAgICAgICAgICAgIC AgICAgICAgICAgICAgICAgICAgICAgICAgICAgICAgICAgICAgICAgICAgICAgICAgICAgICAgICAgIC AgICAgICAgICAgICAgICAgICAgICAgICAgICANCjw/ nDJeP9hsfIIcmnR0W6nqLe5DIn4NHP9qo8EmBFLfAWdqhuHwZkjAPaLuGCQjBnnAEvt5FYkaWR2AkPTh K9JaO6KjNEtqKV1UPMPwXVNeuQDsIDJrIDOmHxS0CZFkKKlbHK1MaTMmGYmkZYHmWHOoNmOeIBXtCIGj IFIgMTEgMCBSIDEzIDAgUiAxNSAwIFIgMTcgMCBSIF 5WErYdK6LweG39WXsNKm9+SUwceeAyJadLKbVlWENaa7FgRUm8RA3ZHKKtXgebg5WmVPVjYKTWLVpmCT 9KOZJ9IKZqXZOxRr0HFIXhH944xcFgDD7GIz0XFbGrOJ3ahs0KUHEsVEEpEqsFTpd5TUmmXS3NzXKqWU xPNpYoSaztXPwnfXScFZMnDGcjp5PnHD7lUH4QHKE8 GQplWLwnDjDoGWOvTRu9KnKJFOqOQzJrV1Kze8PqGfT7QHMwFbGkHLnjFJVsYkF1ON71bTvdXW2JJSGb BLEcBH87RLGgXSQdLe2FDz7IHfVuYQ4mnr1ZUQAcCZEfXuxQVqa1MObfEL9XeCNkO7SkbHPbq2tBGpHf S3KDGWB3CWUyWu3DYAHeHqMqOEZcUYdaKI4xZQSsVM CNgMggchG7TN7RBO6xlfCkNT2IGdKuQu4uRu2PDaKxW4WfH0FvXZYxVHTUVIbdKN8DFTuqOX1kUW8Cl4 WCyYUovY3wmv8OTPJgZENzYjzvmw0LXlzaC0S9aUsgHJTlKDJnPUSVAZrkXZ2UDLDtZGS5DIHjERJtXJ OJAhUxT96uEH6DI0Ljr29kLjS1EDEjTjMsMTnuLY62 lMhlgqBrqXWwjNgiTR9BEv4+JIgbxdSbNvkQZkrlVOZXTfBjLOHQGyYuCYYjRKZrOWCeFiV2ZqUfWw2U QGEjGZTkVWRuHbSgOPDaFCTyDJcjIILrLHBpReNqYFTtLKLhHQ6UYeJrXRCuBFK3BGXcUCOrPPUgaq7A BUHtMPKkXXY9CyNmRUKhUFJkIEvjBFEvEKYyOudjVI RzVNJfTV8IXkQtXPZrUPU1CaArGWLqXHEoiy5ARLPyAQBqJjQlOzLfTZYgLIAxIZbiWATpKIQ0ZQJ8AD XgZAMtJW9GHfLnXLAhQBFqOPBcHNKzALAnme9YUHKpUFOaEaJ9OWDfWZYfZKNjBItrAIPvFAI3TWg3DE CnMRQiZP4WPaDqYRJdUBF1TPZnTSNzDUSavg9VJHJb CIQgEQzhGhVaOSRsYLWtCYfsPZCqUXL8UACyRVOlBWAzED9IAjByFFNtCdJ0MXViCMYyODXbbn8ZQTTy RHGyPfk5PNLuJPRtCIDbYPrpBIQpTUG9OZObKKHbVXPxYW8YRjRdLQMaDnQ7RRGeLKVmQMRrwg7PAFMv RUHqFUU5BdGvWNNkPVIfJIsiXAWgIVT2JFrrRTKiTI NpLB1NLtJlRTIzDtToAETxWVAtHJFbnk6TRQHrERSxJaBpQGKsIMLdGQLiVBryNCGvKZJ3UvK6VTKxNB NrGJ8DEsMiBUSsZxu2THHvTFJxIMTbll6VKEQsXQKoGZO5GOZmNYYkALAhKAxmZKLhMOF7KSX9ICHfHY FcOJ5ELvKzLSTgPzu9CNThEFKxVZDptf4TMLDgRTXm GGnhBUCwJEOvTCSkPUpnEJUiSSH6HFSwBPSfESOpKK0AWbWwMBPuZbOzVGEoJFOoNOBqao6SGNNsDRB3 ZBC7EXBkFJVaHGVtUSvnQYOzXJCdVtm4PHJgIAYwHP0HGpRsTTLfZSXmVHEwNHOsQJEusq4DXQQrOEI4 ZaP4YVVeXMTlNJMqPNskLHPrCMQiBttpKFMeFGFzPK 6IHrZgVHJqVCFmEqAtXUPaPQCjjf0WQMWfBKS6YyIgExYwZWHjQZGtKPgxCFViPWHnUcLmVRShDOYzEZ 1WBjBjWOFbZRXoTUQuCKNtKKLkxo3TTWJhUSY7IWLvEJFvYDOlYWRvZQjlMEIhQJV1Diy3CFUjMHTyKS 8WUjItUNYeOUF3NSHzDIVkDQSver0IgTNvsEavyi4U HSuBLq7QlBuyVUFwAHzrJf6zcPQ8ZjWaNUQUIg0LnuLaRNGiNVEPRXlsJMFlZGXvDtWhBcG8CkV9Hkpw XmTlAJUvYzanBbjoEDU7BCkoGgU2VQWgJtM4Pjy6MHE8K1EgZqCeXaM0N2TwYXRzMUmfPgN+TG9oFLl+ Nc2Cb3VsctN2ieBfZMy7ZfN4XZ8VHMPMG3UUFx== ID Date Data Source [id number] 10/24/2019 12:03:53 PM EDT [facility] Name Value Range Interpretation Code Description Data Mellissa rce(s) Supporting Document(s) [facility] HKPPEu1hEdRGNdQgf7DvSrAmZYBoWA5ifwu5K1D1iQZcF7FvhSUnk1nfB4GuG3UwWGZnVKSTGK9ZvASo jb2 [file] E8DW9GmSPqOhbK1DJhWLO+kD+BLAYNE+kQSW9ZqxuxFCM g59DIb8qZUbxw/zokmbbtq42yHd8gSlPmpC23k+84x3cPyPzK5iafQVSGYKhBI/oKFWwZroJp99VSWbg juzSDLUlJxgaMKwLwG9fItFiSouDWAUPcV/z1OG6meJeau2OVCmghaDh9YORLTsKUJOV6MT/roDeHELu RKJgoxoOGsS8R1frNlSrh8e/Cegx2oBA8fD/B8woki lPV+CXCKpRQhibCfzHKBkOqBXluDuqqh81zt8gOR3ebcONyyqDfNuTRROkQ9OXD3GVYHqMNZiWZlJoei MkX8slEg187aFzM29xrfH+c1Q1QNG2QebqXwfXzxnS+HannWT69Srv8FjkIKnzKWUqEUHgs9WYTO75fw oJekrijcNIbVSQCcTHcGYSxmcaLH8C0LAbn7M5qb3a 2NEptxw7bQ+9dL7EHdQQNJQPL5s0eSVh35iKci3kUFm5H4F5o6v84Va/S+r/9Ajlb7yum/zxGKzd3PiG 6higsy0FYUba9s1Fbe/qtQ1uy9/6lg898bZj4b/Z6p/6Xjw4wc8+f9/yEstVU/991u+9a5ge3z3/X0Tz 1OWP8T+2+CZ57425t/a6vo+u/+KMpjn5/+OKt+fvpZ Vefa/c+6/roktE2sy0xqjczzl1x+NfvPC/9e532/7wvqV8m+r2g27vI/SmvfXulfZbVvp/Svktq/1w33 W69crSer/o+832vcn/u+community health program representative/n20YqE84thDq4bNPRAq8shUkvhi4IpfMESp/6Rkjxb5kexyAHFgm+8pYt t1Id9fg/dNS/6WMgq6s6hy0sg/0rgs6Jv4V9+/rKVd S7L9ZTAT24To8+a779r/fUJYrfI61C72yj9O4qW59zdb3cd6oxEv9j758GNb+vt7x+KgIQwd5e5/+25V 3KIt/o7ty2tjjwyY9+S4L6o3C/3t7mv5ysdD/s+56VL4yy7rM265XDE1tiIhyU12i11b69pAAsmM0ojm zpdtc90wBc8F/2po4Qk75O5+vA/cDz+Y6vnq/eOuy5 4/75mmML0/p2ncA6zml73cufR+S8s0015Zbv/XbYc1/XHobGb+i0uj7qUwo9uPtk0mBaQ8kitHhi/nrt aGn7Upzn9V3HaC/R73sc/n9LluB9nr50T195D5nasCpz35p3/qD3sOl85/Zzxu3/sYuN7b2hQ7m32/rq Bqbza1rQD7G4Vh3t/M6O+wPPY/zOifon+rPno+Xr9p 9qXsi6ShkovPlrXu/x6fPmhD/l2+4qV2+kCZwf0d6ZFu3vGr8QWomxev94R3ha9U9A/yf6P9F/yevrr/ 235dwi55en9y/OHb/XuH/k506uko032dwt0Aydx0Aws5kd/V63+0qUm3a8mpGtzc7g1mz734Ia7Lgu8V mjq257Z/fXvR/KqdBgd3217hb/LzW2l7zO9f8NL5jr 521onRhh5WAz+5ydIW6/aNKO3Pm8jdn1/dKXIbz1Rx/91c4Nt//cqeHf/kz0E/LGglx3/w8Z9xiac4FX b2BdjQ90I4Gp79Oxct/Xxld+jaatlt0o8p7+i6Hja4yO+/02PdPwfN/1qM6O+tyRWy9FrOkwqY5fvH/1 f3osgwgjdoRIi3bc+3lj6ldVzS7at+B+zD8UEnItvh y+ee2WG21OiGqS3iltgcOwaNN+v/P+Tvj+W1+q/5/5BuugadNL16lf8/ALWgAB7aqf/OoFki4xcQf5/4 D3oflut+hgPr2shkIxiRQ3KB80Ws4R/jtrpc4ir0s5IXqvxGp9LSA4bvotbjS9bh1wus/ewcJ/ld7d2/ pmd/+tU/XM5/126XPjq+5U9c/58ln1A2nf5HJ/Suzu +km+mga372kwkC57ixv82c6N42FfZfF/v1/qokP7qkl6yK4L3glh3bqa7U45BclKIglraH3/nCX0f876 +Od+1wu53/VC7nf+bjNMbo9vGw40/g8850grp7auntl+8ljb+Mp92/ufx08S23HY09xig/peHP938j9Z fa0HVf+6/Rkp4fo+PyLhGs/VZj1NXcRymfo4tjjVx/ JW8RR4gq3hqPsym+Uzjm8En4Q0Eiz4lgZ+auOr7/W9v/JT0ow2T/fj2s/TF23w90ffJx08L95bcTc3zE n13Stha6Ajul/j/xM3uxtk+bn5x59HayrKp/cFz65hScz0c+vrLa+olKvBxfpYuRsP93ItPc/83sZXM/ n6c18+rOVp32W4m6x4W/y7rG9paT5ig9ldnwt61ddU M3Fmrnl/m31fb868/b0O3A/te481uPasJy7//ziKF9Ztj++3CF/5mYbnG+73dOvsqH/g+YHnJ+5PtLu+ dr5TrM/5gdjv7206jgcqgxu+5euM+xn3C+4X3L/z0U6s/l433G+433G/o5/XP++U6u/8sr4L7Kg0APfu 5M13/Y0u0kvK+3c+KsJX/PbXhw3L4ZJlR+7j/Wa8X+ CrkvF+ha9kS/mO35Lv+C3CV+rf0ruwC2fALdn5yK1QihtcJCH+KsJX6k+AzIEwYyskWf329M+op6P+jn Lxk9Z7UfVNuLnb591ndl1yh3U3DY25M1vxwf0ljqH+qnquw19c+dH3+srrjBmju8OeuGQNe8r9g3kNEy wrrt5FZZ/i9Q3jDxUwvFue5/zpKT9ChTfruvuiPM2E sSXxkW52O1/Ymwo5hMGoD9tG1w3Z6HUflyznTJYuz60FdyL5Ex2lym3e4fA3yxj/De+54y81vS+G99vg n/ddf8egz+aFmfnp609Dg+3zd+nbyaz0htwd2dMV5njf/DIAt7811ia7+9BR//eAb1P5Ouh+G2/fyc7f 65XuM+e25vIkr3Kwmrk3Di1/q65hWXGZxtxKi2BC1k fXnhG/KsJXSuoVvlJe+QdfjeR6+l6PqGz/rFP8/PjcH77+7N4rl92mrVts/jM741t3Bk2FmpH6pfll9J S4Tc4lnw2eZpoa+SNvl+izE1KH6xHI8hr/1lu2TmJtmf0Vp324bc5J6GFk2I0l5y4GVsYe8PwouCuos0 Y+p6h9D543t+xk7wiewdud4s1n/v7bynnw+o8KNg0k J8jXfu/fm33z4Kzpk+/8bQtfC9bT8AYvS+5n3C+4X3C/4n7F/XbtU/hKOgS+ZlGWLdunYR6K9pqo4/7C /xGdV9V9GkvT2R6jGcg2ngB5Zt0I+Qw9jzOn400A/We0FkL17T2JuqH/4P7A/dm9CbKv/WtB0Il49dl5 Rc5wH4aZc9l9212zBl/AdBm8XgC4Uw8S1F+o/86/Ne 66J1CpmJ1HdaDv+xeXW5CwC95ofAGMt7EMF/JUt2d7fK58Yklyrh8G/bserIhfVeGrpfs3/tu5J5fXHt 0PKtFL+7AICwn6/lxzw/Dg2ub0zMO+YFJbe/719Y0/V+0Pxjfz+Fv/jbdX7Q/yvpLiq1SVdihY5+/8W8 xAD2jd8yeectdu3v3M/Ik1dSc03Q+o/+IINvpjE0wZ fXayOFb9ch7WTjhCM7rmXGE/5ucTdrKHsQzwZ8tl3zxdgfO8jAEKw76I004kKJ/vqVQc7yH64MOTZw6O G1+k26YHWq9e/Z1PfK+/eLIqfqWyil+7mv9xWXnY23lf/CJ+AStPAWUtqnuk2d1a6UoiPiMLDeJsoxZU 227bd2F/C+1hR5uy9yiDhpadQM+HrN6trddiTY+HvB 3azvutrep4Bn/5mY7+UHVp3G4W8lK3P9pH+x2QV/hKfRO+Up/HXR/XOGtPBU3W9evpwyprymX+eTS0C3 tGo4NrK78WcQ+gCOzvyrUwc3J+Sii3bOyt4lhO+ErX2h+qvlr116Jt/cFz/iUAde361ram/n7V/qCysG f5fg+my1Oa7ck8CxOYxiyj7ahlz7HreI3C3p+xP1ix U6fyI3rfkZ/LoySGRdpMcCIiUe3zfr7Rwy+u12peYZUk5X7jeJq38tlz4KU2Rl3+r+/9r753VyfQ4olR 3eE4G5piK+5+So9VgjAIkdxnYf8yp7t8HAS4gyBgmv8H5O+4X1FP/flHUxG4sbgq9inkmdDftwdyXajG SllKd7+kmH5mKxC1ddmUey2/Ox8rdXNPDhH5wqopi3 3Vuz+E+1dJvd5/4Ut6R5vq6gVzG4k8R/41FP329ktAHm73b+v/mVut4UTqi42F+l2Z8xjgto3O7cOgfd Xt+c0r8kaKDVx/aBpJ4Z0euwBJRj1eH2n3T+k51ftruF97jW+9dgKvv/Xa+ag5TIGt8rwxS9c5pqwaZY /83BS/fg6j66k39DvB476xskilJU3vvx+ix3ftlV1b f+H+woa0glO9nst9qIo+ar4yrtt80+t9RO5u8YzqR/RiWFKbrwB2og9il1nx+Zkbb2/jwwmX9ttsW5tl 4vIHXoyR98uo0yniY9LdwpAmUfh+4bvIL60c+KDsrCeDRfObndWMEs8xs3U+mnCN+ixj89xeuO5hFEX+ 8jXGr/CVn5+oZ6L/C/2UlG1q60e818HPzd2ephbee0 42Uey1abEEx3vAW41vuM8OT7e8K14wvQotTr1Z57iejjDz+8ufnqyW4+/+APdGAkwsF2Gt7/or3YyhpC 9Dp4jEyyf+pn1wE7v/jCY6lvasa6iv8B3Io/FLmjblEus21IGSH+f6jpd+949ax/lHewgw6n+0gfeL/c A46iryjo9/kdPJk8i8704hav+uwZj05N4Q9Iu5f68p X+r2tNgpiWoj5AUO0Uc3J5jV7L4ncv+au4gD1F/lb3hud4+oWs2XcZ+MyH16f3v9Y45e3BlC/u5hk8Y4 O+9+aJsYvxPyzrv/24SvpFvhK+iz9t6WjhFa7m0htUL1xES4Sa3ootswdREGN8+1Ak4xmL/+WfjKaa/9 2ueCPQtfndTYa//UP09vrZq1VY/Advo39Dbh5rqgo+ sbo6p9TgQsB59SPwetafcn4rgnlth5q/t+e+q437/971UhgiG8Svnmxg8A2s53iX43pS70je55ZR5o+a bHmb9v3hvi82532L5lJeI4K36YeXQ/R+kNA4MNqquiRv1qug16Pcrr9bvCOdx20/q35zv/0yc6Et0100 j+zr893/3fni9+8ng29n19HQo3fn2nxFGw1Qxt8Gok /q3d7GHO5nt065a/3KDIZ8ia5xrN8T64Wlpdej39hahcf35m+BWBxj9lv2v+3/pLwf2C+xX3K+433G+4 328/B65jK1gqO31+rnH/tjc7Pzm1EdMNdedicHYq9Wf/2tVph4c1P/xMJLmSLzV7czXha3j/qp69/pUN 1/pdX+qEFw1Fhthw5rmBsai6mT+S1Fb/ft/DpC2gNc qEj567sy0f5tfIIo6pgw4yuIxuZJ/lPm0p9nrrTt059HOCmw8eyUHGwm2ByhqGP4uUi/4aoh6dguUwMy 5pWxwQH06N3/jrvJ2m28dSii/f6uvb/45ubZgVzDSj54a0Q/f3+x3qw36/b31x85imp9tSlyoiC55leE 4b1tsvKMi559Ncg3/1pS8voyhlRqnm6mur75c/5XWd A/VP3J+8t6Mb7sq2lMxRv/Alejandro/YsT/MtW5MqW3hpWMQL56NG5+6Pcyikri0mV9TgxSt/+7jr xG06ZW459E/x/WPtoV3L5vRF+WjCPwtfyVYnxu+7iWXGe4/f5/3erM+1Ulx9dr5ilf72/P279Hwos9Le yU6XfojJ9g/cn+xAUU5b61V3+E52D43INi/k275l66 [file] qDuXsStlpb5RhIrnwcKzgu/JI03rpKdvPQ+DiS8d9TGDZd5d3p9d6lXFo+y8hpZO4o355ofnPHR37+toy packer [file] POxh+/Ct84tY3Oejgr9naM6bqjlyW0T419PT8OQ c53h2q/JNKA7D9E88l5KcJjd0EmY/09FCUbzz+iGs9TMiqmPpLRyr7sdlS1T6flK+6F88DI5hpzl5MtW t3vdZvl0i6tOI/VrThARlkCw0x3yKwzV4W35y657n0bEYQqsg3KYh/qMRk0SVsY3liXGd6JcM6v6VlmI Vu1xuRrN9928k/ta6PsasCexeppKpjzP0v1ndV9b4o Q8R2g1gB4vPI+/onGm5y9iFv/IWpD2/wlr4Pb/C2gw9v+TNeRzyj45Jm50e2yGO6OANvOjfBquROB0Lb JyDnB5624YsoC539FUQDir532lBBtFrpfttUs9jL9qnqyiEtcfXrU4/sPXt5iQbwZA/ecKn+8PrDGw+P 3okLW8u8sRC5je8iIbpV2iK1tZm26hNjk9uVhcq02h Dqw6N/yQ/ezQ/zrGV0zyC/iJSHH6q/MR/jeSeb3gHb2fkn9quo7me/d5V2lRmp5vPF8cDMt8xAqKq8Ld foJT/25iP71iYxpVeiLWvIYfw3fKzqYA/4oy31KG+5pVntenGd3jQQ2hzAcizzGZDAUnqtx37C33sPT+ fpXDgfZSYo+fCGW+4AP2A99O59ZmZuu166L0jjaQ/5 ZCqZiocXDy+zzooMDR/rGAtmn97nO66hxSckn0k+iVF30DasHfEZbex+PBvvrnOUw+Yt8+bDm0+59dTJ FYBtmx7si46zu1thEeonyA+5/WGhY4xjeAu3nkAFONPJ12pcUtgDL5247+ZHfnlpMmmKP4i6+/CGr2X1 Epx1Vcr0LYaziBq+2Et/7KU/3qHukhr95YgEY/2Zj/ rjX/rjX/rjX/wqpfqffyvfcv4qbhjK1+1cT+cH7+tFAc0n6KjGpOGmLaKidcUmM+/xL+ULr4p3Zu92yV leC92R7/G74/Y37aNFEd6mWc25XlxCg96Jl30v62qsv0w46YA06zgoU34FY794Vsn2ciq2ubNrM0S6hr [file] 8rbXVtln8f1axm979cBYk0yK4sxLb4152kyG7e6rV1 zeLpgbO/2JUY+aNQX823vFhwocq0ave5gXBwSJyxxJ+S13numC78BZKDIBV7fEAVZdcUuu6jr6AlIYbA ijOPJ0FOidYBSMnl5G3PdeSEPOme6I0TjqLqmlre300rRZhNC5LB7HlaRxbClnG+yL4Cjn61RpEPAUpp V0R9eeHNlcP75ojGSceX8Y0MuXbzCwOHRNL6bXtkWv H4yzK3AjSJJkRv56y6fHqnOdaUAmhHa1bWrFtizSqLpnuemktsueZuFozLS+LWK8MJsTIsISXGRsbRnp 4wzyroK4FXnXPKZYkKixXpoBAeZIYNGHUiekl19i2XbYbEOWB6C2EPkBh28e7Qhd7362qbaSKkiVI/pB n/Yz8doFEUWVwOwG+9sgS6Vl3OGU3D417cfqKb00+6 Laik13LCKtyPNxnRmMWBCHKXhUp0fEZZDVRTDPGUJlzGWsj493kwI9GDX0kYPRPQeAYoAXmJZtlsIFY2 j5lOs26bBkMMvx3deABxyz0WL88dAQD82xgRpsqpYPcFJnVfViRSBhDvRe1r5W5jq8EvnMhGjpa6obTn hkSicRAuJt2hcoBEGuZheL2A07FOaDJDb1PjgSPWbi IQrsEd2DmRyGrL5HAAVsm+KPbGE0uiqOdS9UH+UHgU2JOzPB0TdqlDobfcaYUljFCVxgKEocUEHSyq6m q5NA6p3U9Xs3ApBhv7fwmdNJNBkGkCEfQb4bq1sI1HIftUfeXmoP4dehBSJQf8c4fzJ9zp+9HePqt89t 4QMEXYXF2CacVB20KR3AxRCN+FCa3yMXMDK/QZEXR6 FbpvGDBI5OoegxuCzKRrJV5AGiQDUTjM9kmZho1rX1d8ZRk9MHRrqQited3tLkXojijo6R68LF+pzXY4 Bridgette/A3q4Q1v4+YPpoB6TliBrx4uMV2nTSRH1k0+9p0oJLdF8rsEduiJuPwBP5CIBlvSIKw+BzDAb1fo zvu3UaaxeYeFy9TPGTp2q8jhdWOzJi8i9xpP5lXKSp 23ce2+r2nW/S2kNVR6IgbfUhijy2N4wkrcfnqTBSuLJcxG5myRJ9f8E7GDHZQT+8dycJBN9pME+Ynlii 81rAdCeodv2IWNlxIyrzwZZ23ubQ+5l0YP+F18Q7bs4Eh+58RGJ02PqqJJT4BTl5bJSRUoyTTK+ojE9U xifqpEz0+RLwqhClo5vvUgbu9MzEPJKSLDOboVE8l4 QJVyVvJzcVuHirOlauh6N7w1UCWcjleqqh7xGkyGO+mShQpS4so+KefOqXJwHNTY1p4b9Mn0bcEhviHq ZdnBsX+nH5joC59jkYreZR/j6opS8sMt2Gc+Y/UO3TlBn9bs8DVQY7TWQ7SqPtuF9FkH23I9qIvVxV2F RdB0WnwYuNTaUulusoJqo5kzvFlMXEF2Y+NNGd+97F 50YRAMn2GJAE1QeoKo30VIRXOPCs5sH+3CfiWqL4RYlNm82uZ3aPTj6rmAZNS8iDEEDDLZRaSq//5G9/ +LP7KNSK1MR/lVi826KAd/r44f/++XbYm0aZrU9EkEB//Pz9D7/89q8//vvnT99+gzsZ3dUZ+/qrL8pj bY+Cc6oFm+zYts80f//4c46j6IjM/UUpX/VE041hx6 P53//623/6+PWvvv/h0w+fP37x+auvv/o0laejw/36N5+/+/7rH/7pp5+/+1Hoi4399kVt1R2//cPX33 7++E5rA902/yb5u1524eA35snK4UqpGDGUCp3A2y8+9tfff/zw6cuf/9SVz6112zfO/5H9spH0fFuJW8 7++bt//Pr7zx/f/vE3E516cN5o3/+L0+vpxJ9//vbj y1/+7dgxdua18yj/ru8Ps09snLjo634u4upghv4li5/B9fzbwdN87i2wjgU8Xa34+8uP77/++2+//rtX X5u4z9gBW//07d9//vjHT99//N0vf/3tV//FLx/c3Wgrc4/+07/+4S9//P2/fPyP//Pxm6+/+haKk302 /vTNX3/84qu//sti37wdv/7m45//W13//Fcff/7Tx/ xZXT+nu3Khc4M+0Prxq1/7gu23pGVY53R//OPP/r6F5bqrYGhB/lLazVsa3e74Ki///gYh7JMN/Tflby BEC1eJQup024Uhrk7t9mhUn4+jM3kywJ40DlGi9aceYcKuewN++/2//l7ky9Va++Kz09R7g/+vT99+9f m7j28+/sMt67oVlX+/y67+2+rZ3qburd4g5y93SRG/ +4nVho0qjjvuWa/1t/H7m9//6T/+5uMvv/9Z4891/5oHPzwrznPSH//3x45h0LZY/bj1A/7qu48//Ok/ fv+X/+e3//LlAE075l45O/VJbMqPWz/YP3z3/ce//O/Xvf/hz3/6cfOWU+5HzXsTF/rGU477Wy/8ju97 QhLeSY4hemN+gN19eOlrdwT6/+jmLyZKzAZp/q7++K 1Q7fhpgttXXd1++//+/t//8/ep14cSY/3067//1LAe9vXBbvA/85d//olhqV0wd2/9/o+//pi3V3vu2K 9/+79/99t//8Nv//FnFt1u4/0Aa653+/tR6fq3//Uhn6k99uo///zKB3jj5SbrwCc74a+/+9PVFqUc89 UFHvyH3//uf/8eY8169t9HQ+rmE010amFt7QM//T9e Y+5fvvj+l3+Llc5hVX9mlKRd/fZ//d8gzmt3Yf/eJhIrPHW/9Y+Pz6+v/uT2wx3hrc2tqs7fPkvwG412 +rBfQB+2uqdc3iNcus8oJdT97dHpAgv8GS2k8y8b0k4v0HxnjlYvmUSgMB8JET0oz0ScAsS8TMVbr6Am WEyiTPm6yVAtIJyjyzTnq4BlbymmS4Agq4EvWyFfRA OuCeXtIeu9CSMjKbU9wSHbBvEtIRVwB1NuGNJhOwW4QpWkUQNHXK7ABISkfrYhHmIvYAV+FwTiYL1rra yxZXGre6ZkJYmbICevJCWqV0M2zPhdTUFiZ8DgpL17MYKmT5DixjO9ZCU4IPBuTfOtEVPhvJBsQZRoSL I+VnMiYX7osvyeZOFna4GgIIrqBWI0fT5cPKsGMTKH CRfCWGveAdR2o20qraOTIFOyPBTpOC3YwnAnfDxykaPkfBCjIYP2ItIrKSD3PYouQuIxGSEOEYBvSZGs DCWqPSLiU0GdbAojRKdRGGRIKOvWRHirScNxp2F7QWZkfbRAMENPJ44fBGoDAL7IHBI1GHg0TpDoSD1M fGDzDMO1KUpEVDMJKFaNCVziAmQhm5V9OJDmW1AiCJ ZuubYmVMESQYsbQguxPZ8ihDuybgtqU3LgxDGrRYBQRMIgJMByXGWwDGRjZ2Sfz1H0F2VqEObPQRASZU dHSDkkPyV6k78nazBTTEDtNKXwSM6+AO1iw8KmUk0XYUFdJK1ehaf2PZ5LmXIiHP5HHFhnjnZhV7csnk IeFuOoNWEXHT5pN0FyqQ08KQI+DiWaRF6auds6syUb AdWqQRCaWMEfDWMuZZseDERvQQMrXTAfOZI2JXV4KFYxAnZpVZYtEqT4KAGnAZPuIXLnzzTMKAAvJBN2 BTIgFkBqGYZkWAWkSVozMPKsOKkwZBu8MYMrLCQjTX6kTvOnYUNnQBShAIYiSzN9MoWvQiTRWYPqQDUf NWDoTrIqCUHsDDSfSDvsUCDjWYElERx2QTXuLISsFS 2lWcMvXUErJOHoGPMjXOVmRPPqrxEZVAFkFJCbBZR5UYVeKKYtNQApARizWYXeGGDcUQB2VEVqXOHpJI 6tYpQlDELmYRA9OyCqGQHsFOHlrwZSQTYaXXHzCJO1QZIjJYWpMKOzXNmqFOVxGCLnCdA3QAToPWKjMV 3gGuCzMBLkKIL7NGRlSRJdHDCsyqFHACFsMRNeOVr0 QsFoWDKuSUYnDHqyEGDxKEOwPIqbMKJyUUZwCQ2fSpYeZYSdCXEkQFIxJEAgULXldrJRHRMqCTWmYSI8 TgDrLAFmHCYvZPuxBUSnGJWfBZU1QHHnWEZbLV7zAlArIOFcUnJvTNpoLZLxYPKrktAKBPAkTTPrEVQz IAZzVJNzOVUnFEodRRLsKMHlMaJ2RKRvQSOvTK2hYm NlIHQdPEX3GZBeNGXnCXLpriVKSQYiAUKtQLBcXDW1CVKoEFOpMIe1czJenIEhPsn8Yx1DpZkeCEE2Sj 2PjmBkIMPjJUGTZm9Wj074QCEcFBEIOlt+VckgxBUsjMyrMXLVJsD7NJqMYODYV5Q= ID Date Data Source [id number] 10/24/2019 01:35:25 PM EDT [facility] Service Cmnt XXX-Imp : NoneMicroorganism XXX Cult : Polymerase chain reaction assay was NEGATIVE for both methicillin-resistant Staphylococcus aureus (MRSA) and methicillin-susceptible Staphylococcus aureus (MSSA) Name Value Range Interpretation Code Description Data Mellissa rce(s) Supporting Document(s) ID Date Data Source [id number] 10/24/2019 07:01:06 AM EDT [facility] CT THORAX WITHOUT CONTRAST [id number] RE SULTInterpreted by:CIERRA GarcíaROCEDURE INFORMATION: Exam: CT [...] iterative reconstruction. COMPARISON: CT THORAX WITHOUT CONTRAST [id number] 05/15/2019 1:49 PM FINDINGS: Lungs: There are [...] rce(s) Supporting Document(s) ID Date Data Source [id number] 10/24/2019 04:15:28 AM [facility] Name Value Range Interpretation Code Description Data [facility] Document(s) Leukocytes [#/volume] in Blood by Automated count 19.9 10*3/uL 4-[address] [facility] [place] Erythrocytes [#/volume] in Blood by Automated count 4.15 10*6/uL 4.1- 5.3 [facility] [place] Hemoglobin [Mass/volume] in Blood 11.4 g/dL 11.5-15.5 [facility] Hematocrit [Volume Fraction] of Blood by Automated count 34.4 % 3 6-[address] [facility] [place] Erythrocyte mean corpuscular volume [Entitic volume] by Auto mated count 82.9 fL 80-96 [facility] [place] Erythrocyte mean corpuscular hemoglobin [Entitic mass] by Automated count 27.4 pg 27-33 [facility] [place] Erythrocyte mean corpuscular hemoglobin concentration [Mass/volume] by Automated count 33.1 g/dL 32.0-[facility].0 [facility] distribution width [Ratio] by Automated count 15.4 % 11.5-14.[address] [facility] [place] Platelets [#/volume] in Blood by Automated count 275 10*3/uL 150-400 [facility] [place] Differential cell count method - Blood [facility] [place] Neutrophils/100 leukocytes in Blood by Automated count 94 % [facility] [place] Lymphocytes/100 leukocytes in Blood by Automated count 4 % [facility] [place] Monocytes/100 leukocytes in Blood by Automated count 2 % [facility] [place] Eosinophils/100 leukocytes in Blood by Automated count 0 % [facility] [place] Basophils/100 leukocytes in Blood by Automated count 0 % [facility] [place] Neutrophils [#/volume] in Blood by Automated count 18.48 10*3/uL 1.8- 7.[address] [facility] [place] Lymphocytes [#/volume] in Blood by Automated count 0.86 10*3/uL 1.2-[address] [facility] [place] Monocytes [#/volume] in Blood by Automated count 0.47 10*3/uL 0-0.8 [facility] [place] Eosinophils [#/volume] in Blood by Automated count 0.01 10*3/uL 0-0.5 [facility] [place] Basophils [#/volume] in Blood by Automated count 0.08 10*3/uL 0-0.2 [facility] [place] Nucleated erythrocytes/100 leukocytes [Ratio] in Blood by Automated count 0 /100{WBCs} 0-0 [facility] [place] ID Date Data Source [id number] 10/24/2019 04:49:32 AM EDT [facility] Name Value Range Interpretation Code Description Data Mellissa rce(s) Supporting Document(s) Bicarbonate [Moles/volume] in Serum 25 mmol/L 22-29 [facility] [place] Chloride [Moles/volume] in Serum or Plasma 98 mmol/L 98-107 [facility] [place] Creatinine [Mass/volume] in Serum or Plasma 0.57 mg/dL 0.50-0.90 [facility] [place] Glucose [Mass/volume] in Serum or Plasma 153 mg/dL 70-[address] [facility] [place] Potassium [Moles/volume] in Serum or Plasma 3.7 mmol/L 3.4-5.1 [facility] [place] Sodium [Moles/volume] in Serum or Plasma 134 mmol/L 136-[address] [facility] [place] Urea nitrogen [Mass/volume] in Serum or Plasma 7 mg/dL 6-20 [facility] [place] Anion gap 3 in Serum or Plasma 11 mmol/L 8-15 [facility] [place] Osmolality of Serum or Plasma by calculation 279 mosm/kg 275-300 [facility] [place] Creatinine/Urea nitrogen [Mass Ratio] in Serum or Plasma 12 [facility] [place] Calcium [Mass/volume] in Serum or Plasma 8.2 mg/dL 8.6-10.[address] [facility] [place] Glomerular filtration rate/1.73 sq M pre dicted among non-blacks [Volume Rate/Area] in Serum or Plasma by Creatinine-based formula (MDRD) >[address] [facility] [place] Glomerular filtration rate/1.73 sq M pre dicted among blacks [Volume Rate/Area] in Serum or Plasma by Creatinine-based formula (MDRD) >60 [facility] [place] ID Date Data Source [id number] 10/24/2019 04:49:32 AM [facility] Name Value Range Interpretation Code Description Data Mellissa rce(s) Supporting Document(s) Magnesium [Mass/volume] in Serum or Plasma 2.4 mg/dL 1.6-2.6 [facility] [place] ID Date Data Source [id number] 10/24/2019 04:49:32 AM [facility] Value Range Interpretation Code Description Data Mellissa rce(s) Supporting Document(s) Phosphate [Mass/volume] in Serum or Plasma 3.4 mg/dL 2.5-4.5 [facility] [place] ID Date Data Source [id number] 10/24/2019 04:49:32 AM [facility] Value Range Interpretation Code Description Data Mellissa rce(s) Supporting Document(s) Troponin T.cardiac [Mass/volume] in Serum or Plasma <0.01 [facility] [place] ID Date Data Source [id number] 10/24/2019 04:49:32 AM [facility] Value Range Interpretation Code Description Data Mellisas rce(s) Supporting Document(s) Thyrotropin [Units/volume] in Serum or Plasma 0.656 u[IU]/mL 0.270-4. 200 [facility] [place] ID Date Data Source [id number] 10/24/2019 12:22:55 PM [facility] Value Range Interpretation Code Description Data Mellissa rce(s) Supporting Document(s) Procalcitonin [Mass/volume] in Serum or Plasma 1.06 ng/mL <0.[address] [facility] [place] (NOTE) < 0.25 ng/mL Bacterial infec tion unlikely,particularly lower respiratory tract infections.0.25 -<0.50 ng/mL Low risk for progression to severe sepsis/septic shock. Localized infection is possible. Measurement done early (<6 hours) after systemic process starts may still be low.0.50 - 2.00 ng/mL Moderate risk for progression to sepsis/septic shock. > 2.00 ng/mL High risk for progression to sepsis/septic shock. ID Date Data Source [id number] 10/24/2019 04:38:42 AM [facility] Value Range Interpretation Code Description Data Mellissa rce(s) Supporting Document(s) Lactate [Moles/volume] in Serum or Plasma 1.8 mmol/l 0.5-2.2 [facility] [place] ID Date Data Source [id number] 10/24/2019 04:12:52 AM [facility] Name Value Range Interpretation Code Description Data Mellissa rce(s) Supporting Document(s) Calcium.ionized [Moles/volume] in Arterial blood 1.08 mmol/L 1.13-1.[address] [facility] [place] ID Date Data Source [id number] 10/23/2019 11:28:46 PM [facility] Name Value Range Interpretation Code Description Data Mellissa rce(s) Supporting Document(s) Glucose [Mass/volume] in Capillary blood by Glucometer 152 mg/dL 70- [address] [facility] [place] ID Date Data Source [id number] 10/23/2019 10:30:47 PM [facility] Name Value Range Interpretation Code Description Data Mellissa rce(s) Supporting Document(s) pH of Arterial blood 7.44 7.38-7.44 [facility] Carbon dioxide [Partial pressure] in Arterial blood 34 mm[Hg] 35-[address] [facility] [place] Oxygen [Partial pressure] in Arterial blood 158 mmHg 95-[address] [facility] [place] Oxygen saturation in Arterial blood 99 % 94-100 [facility] [place] Base excess in Arterial blood by calculation [facility] [place] Carbon dioxide, total [Moles/volume] in Arterial blood 24 mmol/L [facility] [place] Oxygen/Inspired gas setting [Volume Fraction] Ventilator 0.50 [facility] [place] ID Date Data Source [id number] 10/23/2019 08:24:14 PM [facility] XR CHEST FRONTAL ONLY [id number] RESULTI nterpreted by:Stevo Mendiola, MDPROCEDURE INFORMATION: Exam: XR Chest, 1 View Exam date and time: 10/23/2019 8:10 PM Age: 48 years old Clinical indication: Other: Dyspnea TECHNIQUE: Imaging protocol: XR of the chest Views: 1 view. COMPARISON: CR XR CHEST FRONTAL ONLY [id number] PORTABLE 06/03/2019 4:37 PM FINDINGS: Limitations: Image [...] rce(s) Supporting Document(s) ID Date Data Source [id number] 10/23/2019 10:05:43 PM [facility] Name Value Range Interpretation Code Description Data Mellissa rce(s) Supporting Document(s) Fibrin D-dimer FEU [Mass/volume] in Platelet poor plas ma by Immunoassay 0.88 ug/mL{FEU} <0.[address] [facility] [place] ID Date Data Source [id number] 10/28/2019 08:40:19 AM [facility] Cmnt XXX-Imp : Specimen source n ot given.Microorganism XXX Cult : No growth 5 days Name Value Range Interpretation Code Description Data Mellissa rce(s) Supporting Document(s) ID Date Data Source [id number] 10/28/2019 08:40:19 AM [facility] Cmnt XXX-Imp : Specimen source n ot given.Microorganism XXX Cult : No growth 5 days Name Value Range Interpretation Code Description Data Mellissa rce(s) Supporting Document(s) ID Date Data Source [id number] 10/23/2019 10:19:35 PM [facility] Cmnt XXX-Imp : NoneMicroorganism XXX Cult : 2019 nCoV Real-Time RT-PCR: NOT DETECTEDTest performed using the [employer] Xpert Xpress SARS-CoV-2 assay. This test is only for use under the Food and Drug Administration's Emergency Use Authorization. Additional information is available on the following FDA websites for health care providers and patients. https://www.fda.gov/media/198034/download , https://www.fda.gov/media/078523/download Name Value Range Interpretation Code Description Data Mellissa rce(s) Supporting Document(s) ID Date Data Source [id number] 10/23/2019 08:11:00 PM [facility] Service Cmnt XXX-Imp : NoneMicroorganism XXX Cult : 2019 nCoV Real-Time RT-PCR: NOT DETECTEDTest performed using the [employer] Xpert Xpress SARS-CoV-2 assay. This test is only for use under the Food and Drug Administration's Emergency Use Authorization. Additional information is available on the following FDA websites for health care providers and patients. https://www.fda.gov/media/111764/download , https://www.fda.gov/media/664983/download Name Value Range Interpretation Code Description Data Mellissa rce(s) Supporting Document(s) Microorganism identified in Unspecified specimen by [facility] This lab was ordered by [facility] and reported by [facility]. ID Date Data Source [id number] 10/23/2019 08:47:50 PM [facility] Name Value Range Interpretation Code Description Data Mellissa rce(s) Supporting Document(s) Natriuretic peptide.B prohormone N-Terminal [Mass/volu me] in Serum or Plasma 252 pg/mL <[address] [facility] [place] ID Date Data Source [id number] 10/23/2019 08:47:50 PM [facility] Name Value Range Interpretation Code Description Data Mellissa rce(s) Supporting Document(s) Bicarbonate [Moles/volume] in Serum 24 mmol/L 22-29 [facility] [place] Chloride [Moles/volume] in Serum or Plasma 97 mmol/L 98-[address] [facility] [place] Creatinine [Mass/volume] in Serum or Plasma 0.79 mg/dL 0.50-0.90 [facility] [place] Glucose [Mass/volume] in Serum or Plasma 113 mg/dL 70-140 [facility] [place] Potassium [Moles/volume] in Serum or Plasma 4.4 mmol/L 3.4-5.1 [facility] [place] Hemolyzed Sodium [Moles/volume] in Serum or Plasma 133 mmol/L 136-[address] [facility] [place] Urea nitrogen [Mass/volume] in Serum or Plasma 9 mg/dL 6-20 [facility] [place] Anion gap 3 in Serum or Plasma 12 mmol/L 8-15 [facility] [place] Osmolality of Serum or Plasma by calculation 275 mosm/kg 275-300 [facility] [place] Creatinine/Urea nitrogen [Mass Ratio] in Serum or Plasma 11 [facility] [place] Calcium [Mass/volume] in Serum or Plasma 8.9 mg/dL 8.6-10.0 [facility] [place] Glomerular filtration rate/1.73 sq M pre dicted among non-blacks [Volume Rate/Area] in Serum or Plasma by Creatinine-based formula (MDRD) >[address] [facility] [place] Glomerular filtration rate/1.73 sq M pre dicted among blacks [Volume Rate/Area] in Serum or Plasma by Creatinine-based formula (MDRD) >60 [facility] [place] ID Date Data Source [id number] 10/23/2019 09:19:42 PM EDT [facility] Name Value Range Interpretation Code Description Data Mellissa rce(s) Supporting Document(s) Leukocytes [#/volume] in Blood by Automated count 21.1 10*3/uL 4-[address] [facility] [place] Erythrocytes [#/volume] in Blood by Automated count 4.34 10*6/uL 4.1- 5.3 [facility] [place] Hemoglobin [Mass/volume] in Blood 11.7 g/dL 11.5-15.5 [facility] [place] Hematocrit [Volume Fraction] of Blood by Automated count 36.2 % 3 6-45 [facility] [place] Erythrocyte mean corpuscular volume [Entitic volume] by Auto mated count 83.5 fL 80-96 [facility] [place] Erythrocyte mean corpuscular hemoglobin [Entitic mass] by Automated count 27.0 pg 27-33 [facility] [place] Erythrocyte mean corpuscular hemoglobin concentration [Mass/volume] by Automated count 32.3 g/dL 32.0-[facility].0 [facility] width [Ratio] by Automated count 15.6 % 11.5-14.[address] [facility] [place] Platelets [#/volume] in Blood by Automated count 329 10*3/uL 150-400 [facility] [place] Confirmed Differential cell count method - Blood [facility] [place] Neutrophils/100 leukocytes in Blood by Automated count 80 % [facility] [place] Lymphocytes/100 leukocytes in Blood by Automated count 12 % [facility] [place] Monocytes/100 leukocytes in Blood by Automated count 6 % [facility] [place] Eosinophils/100 leukocytes in Blood by Automated count 1 % [facility] [place] Basophils/100 leukocytes in Blood by Automated count 1 % [facility] [place] Neutrophils [#/volume] in Blood by Automated count 17.05 10*3/uL 1.8- 7.[address] [facility] [place] Lymphocytes [#/volume] in Blood by Automated count 2.43 10*3/uL 1.2-[address] [facility] [place] Monocytes [#/volume] in Blood by Automated count 1.22 10*3/uL 0-0.[address] [facility] [place] Eosinophils [#/volume] in Blood by Automated count 0.18 10*3/uL 0-0.5 [facility] [place] Basophils [#/volume] in Blood by Automated count 0.16 10*3/uL 0-0.2 [facility] [place] Nucleated erythrocytes/100 leukocytes [Ratio] in Blood by Automated count 0 /100{WBCs} 0-0 [facility] [place] ID Date Data Source [id number] 10/23/2019 08:13:10 PM [facility] Name Value Range Interpretation Code Description Data Mellissa rce(s) Supporting Document(s) Sodium [Moles/volume] in Blood 131 mmol/L 136-[address] [facility] [place] Potassium [Moles/volume] in Blood 4.5 mmol/L 3.4-5.1 [facility] [place] Chloride [Moles/volume] in Blood 97 mmol/L 98-[address] [facility] [place] Carbon dioxide, total [Moles/volume] in Blood 24 mmol/L 22-29 [facility] [place] Calcium.ionized [Moles/volume] in Blood 1.02 mmol/L 1.13-1.[address] [facility] [place] Glucose [Mass/volume] in Blood 111 mg/dL 70-140 [facility] [place] Urea nitrogen [Mass/volume] in Blood 10 mg/dL 6-20 [facility] [place] Creatinine [Mass/volume] in Blood 0.7 mg/dL 0.50-0.90 [facility] [place] Hematocrit [Volume Fraction] of Blood 38 % 36-45 [facility] [place] Hemoglobin [Mass/volume] in Blood by calculation 12.9 g/dL 11.5-15.5 [facility] [place] ID Date Data Source [id number] 10/23/2019 08:13:10 PM [facility] Name Value Range Interpretation Code Description Data Mellissa rce(s) Supporting Document(s) pH of Arterial blood 7.53 7.38-7.44 H [facility] Carbon dioxide [Partial pressure] in Arterial blood 30 mmHg 35-[address] [facility] [place] Oxygen [Partial pressure] in Arterial blood 60 mmHg 95-[address] [facility] [place] Base excess standard in Arterial blood by calculation 3 mmol/L [facility] [place] Oxygen saturation Calculated from oxygen partial press ure in Arterial blood 94 % 94-100 [facility] [place] Lactate [Moles/volume] in Arterial blood 2.1 mmol/L 0.5-2.2 [facility] [place] Bicarbonate [Moles/volume] in Arterial blood 26 mmol/L [facility] [place] ID Date Data Source [id number] 10/23/2019 08:16:15 PM EDT [facility] Name Value Range Interpretation Code Description Data Mellissa rce(s) Supporting Document(s) Troponin I.cardiac [Mass/volume] in Blood 0.00 ng/mL 0.00-0.08 [facility] [place] ID Date Data Source [id number] 09/24/2019 09:03:58 AM EDT [facility] Name Value Range Interpretation Code Description Data Mellissa rce(s) Supporting Document(s) Progress Note [facility] GMBGAa7fZeSUDlXg41/NMQwsREXbk5LtARhwMFx1AWhgFVSqR5AlGAU5cH9zFHM6BNbFVqIjNeSnWkB6 lbm [file] EdGUblVdRlCz0LRZWZS8QYNp== ID Date Data Source [id number] 08/13/2019 11:24:13 AM EDT [facility] Name Value Range Interpretation Code Description Data Mellissa rce(s) Supporting Document(s) &PDF [facility] ZOYKUe3kMtRMPtNb31/OVFdiMLYkf2XgUCaiQPn5HAweJORcP3AapRzgHMzTS3EBErtRXDNJNXNUWM5l FcG [file] XONWHHM1rVMe90Vl2przBysgH09vFiohXVag7p/guard immigration [file] lBZDz9U2PKfAWasm/QAm/qsoMljnWLNfFZWlo4/hospital aide [file] yry2f91KjbKe0wSkKJ8VrUbOu0N0STyiyfRRNVXbqzinxbiSJ96G62bpgnGsZOpqiXePJE4v4p2oA+[place] [employer]VE[place] 5LkaJ6q8z/RPSWHROlBzHX3IstdWt+1x++zGq16hsSNTOkX4wOo8eEiatYQHVzg35UJKLPlSRFD3E5Le /8wlE0SiBT1B87rb8BAUcsTyTZIiO9C5qUqkVavR63 fT1WS3pmfSvOdlhG9vvC5bLGLG1qn9tiwsob1oMn0EW0NJUBWH0m7k4WeK5IlyMT7HJ7QowXNbUDy2sh nAolS5Nh6sKj5+TCOg4Sv/YgiCVoFUSgL6MY68aF7FWbcxucpk1H9JWPzQzv2MLnp0dgqfnReSJK2v+V SUg8bDB3fOdxr4pa/e7UoLGWd00nwV6vdqUoeiM6ZM AQm8keSPzmF+JLfHlfv2VCKf5tATtyiuKP//Ijz3dx/6e0kA2fVRnfQK3zVGjKVbI0Pw33wQR9HrT1tN XEfyztYPLj2qQbDfrg4xs0wV4d7LWin0gOBIl8nCZ3vZnglGnzVbPjTotl2w+Zgna07F2pPpIhD0Zwed lFA1FEwIbgf/f/KmH/xo4RV1b56367VeDNwudRqKG8 GGo8a9pPsIKVQGAFjMjzeguKuOV9P/FtsyM0k9R3G4M3GW4ZfJtfTgIlxVVbjAur931Jgu6x77BjUX74 MHZk646e6NdRh6TbcsQciQjVlDzv2AK1C9vVdoMWxJH/wpCkR2ndEIORWZWePg7fd6PPvkmVg8MJpsu3 dag7EHTOSGPDmJrY3YkpF+UNsHHo9AiosK4FX5J18q dV5Tq27+R8+/gvBJB5jEgptvwG+n6jyrvMT7V029a2dFlay9imyAtBQRrF31P2TB3+v6+q0vJIMS8ugV jGOh7oMYe9Q0nqVSs94RFXcwMf1fpTbM9GmzlTpvRahmvR3vGdmevlV3aSCSB9Bi/1eXztvSzmcniLQV fPAWb+g4QGJKbNPSbEE0Wubdt501oLJja/MnRcBC6+ 3WTFRICvULx3PUGOeU//Danielito/YG+jhhZEICbjSX/gUO3txrKwZrKEkEAHP/RlPAYOAXiq7Fii0XZw0WSEK [file] oven dauber+/ifacozP1ibuPU5QtINEF0TcHxuZaEMY480+yNQpT6BBOzZWZ/WvIgy167WXl8YkRQmUh158aCkp +AUiI5AoEyUkRAQWLs+kF/7FdT0aqKYO7RefPn3GsYGV6s28NCNB3eDSjlHQq81cK+nJQAxI1SkmtAQf bKilNLEPusAuyWqkenEFj0PCcrs5stMTcmrQAXZ3Id 5X+xEaGgYkud5b7IggdvEDF9bzVUwaOL0iO8dXU1Y0BkRVTL+BQbd/XH/NK/6XaKd+wKNjAXu/G5vDHB g2D5g1nuI4VcT7THofgNY2uKgQmBHfFAGLAf9DngbQLYhohGCVAPcdkl/XDK20JWsj2Eg2MdS2h5dQS+ KchcLM/ifrejXZpbjbbcAJ15HP47eT/myqFFq06Z9z 56AbK4MAPKZAESTUUK0PSWtRCwmZg3o1Ns/HyljHCejavh/7ygwlQgAIWrXx0wmRNL4K3cNDaLkUC3vf T+m4H0Bkd054QKWCdeoOMGza+HRiqegvjVFXDEAIa/ckqJZSzYgcLRRWscc7v/1nfadBu0YRbpTOuiWF o4wzXU9BDlsGncVUEzXoVvejPeej9WJWYPphcbxOQU SnYQEXvqIO66bk+YtXDSTTt1KvUnG588M45B3d90rBAQ1u8dU7D+JpeJ7aFBC10jf+UPaqnvHFTlxewC XWW368GaNwqCHCq3jxOGhHfD1SutJ29qr7RStN3ifqfrgjMGWrYMCm+mqRrHPShbLEgc1XCs2VPKrykG 9zSTZGRP4vf0gQ+NzLvr+RlVRufitWGnFYULNUYZdt FERNANDO+FYesMJeAsGf2X/Gl/Cu/LKtXzvIjyDUxrI/Z2sucGie1XaW5+Q98N5fd+oMad7omyO3cCil3NkP1 [file] AgICAgICAgICAgICAgICAgICAgICAgICAgICAgICAgICAgICAgICAgICAgICAgICAgICAgICAgICAgIC YtTZFiEKAaMJXsNCHmMUTmMQLpMDReZQ1NIWSpHDJg ICAgICAgICAgICAgICAgICAgICAgICAgICAgICAgICAgICAgICAgICAgICAgICAgICAgICAgICAgICAg MSOhXMXhHSIwGRGfGJWqWITkMRFkBFMeOPIdYOHkAAIyQA3PJOKmCRHlXCMsNTXbVQDfOWZoRYOqAEFr ICAgICAgICAgICAgICAgICAgICAgICAgICAgICAgIC EzZPDkNFHgWKIxYCAxTPWuEJAwXRWpBPOvTWHxSIEoTDHzIKPeCDZsNPMkAL7ZPVJaMXQlSVZvPGGwGK AgICAgICAgICAgICAgICAgICAgICAgICAgICAgICAgICAgICAgICAgICAgICAgICAgICAgICAgICAgIC ZfMJOkOBUoEIOtSUMgTANkOLEkFBMzFHKxTZ8CLWAt ICAgICAgICAgICAgICAgICAgICAgICAgICAgICAgICAgICAgICAgICAgICAgICAgICAgICAgICAgICAg VMEnZWLpUQRaDQNeRLRsORPbWGTjZFIvKHZjPWKfXOYmCYCuXM7VGNNqVYTeSLZbUJXxQONoVPDvZRQd ICAgICAgICAgICAgICAgICAgICAgICAgICAgICAgIC KkPDVyUMTkHRYfNXUkFJSsYSBuATLmFHWxXGLvXWAbMPOgNGTjFYYuGFTnKVZiVG4DEOQjPUYtEWRfXT AgICAgICAgICAgICAgICAgICAgICAgICAgICAgICAgICAgICAgICAgICAgICAgICAgICAgICAgICAgIC DzRETeWPSdSWUmFXSxFLMyJQGhHSTzCJBaPVRbST2E ICAgICAgICAgICAgICAgICAgICAgICAgICAgICAgICAgICAgICAgICAgICAgICAgICAgICAgICAgICAg XEEoECTrKNCdEILfFYYnDBMgDPFeICNtOUKmLTPaJHAtPKYmDVKsLC9SAHChEWAzZKBjGZYbIUDoGXXb ICAgICAgICAgICAgICAgICAgICAgICAgICAgICAgIC MoPOBwAFSfVEUxSYLbCKBaZCXnUHUtTDYjLKRlVACpFBStRSIyXVTeINHtRNYqMMQvLK6YVUPuCXRnPN AgICAgICAgICAgICAgICAgICAgICAgICAgICAgICAgICAgICAgICAgICAgICAgICAgICAgICAgICAgIC AgICAgICAgICAgICAgICAgICAgICAgICAgICAgICAg OQ2AJH48pRXub2Y0KQUjLR1rfml/Zg8MRSiqdkMbcBVnSM2BZiQxTL1gbe8MKeYcSR3pkl0TJPmRYdGz N4K9vMNgYPHbMMOKZsZjB49nJIaaCj45TVmaPTVuJeQrBVb4Yu0TMkVnF0yuEOYzIpB3PCVeOkI2JXCx VzG2DAVkJdJxKMWdBVRcXP7ESLAsG988ztFlVX3ETl 7QXeOkAS2wjt0DLlnxZLKzSyfIShq0SOaxNI2TrPOuZ0ZzxVIra3sXPqQiO9JTESR3LXVaSi3BGCFfKt BoHXBuEItyUP4gDQCvMWSHrLgixwL3KW1POP5qmwGuQA6ACjFcOf2vJo7GXiWkB5PpG0YwWGWjEDYUWR byNH8ILJQhRTN1INTmCjBbERKIVhXoK97lRM2PJ3Iq z20cVzI1GRNuUeEoDDfwJL13bUxmwzCfzRPvpWdxLG3KYk6+DQplbmRvYmoNCnhyZWYNCjAgMzkNCjAw RQMaBRLvREUlZhV3LcGlZu6IPEEvEZHnBVKlJgSuQGXeKFNoSBwsJOJsWGS9EIQ3STNyMDEhYC7MSbJj UQDlJuB0DfkuWVZpEMVchj9XDLZuHRPtRXL4BACqHD GbWDPjWOqjNUYtOYSiRubfZDKzZPRgGN6IRuHoWFKcAIR8IcViVXJdMTSrij4MPNRdURTyBjAmAdThMU UzWYVqFGcbBIVoOLR9MbMsSSOiURXgJX0UGnXfTZBeRFt2SpqwNLKaLLMoqz3OHDNsBCTaBPuyOOZqND JtITNiXTltEQNyROE4Aht3TCDnRQRlAE8HUzFmWCMl YYs3ZAEzIXIoHMZaej4NLGIiZONzHOd0RsLqDTArKICnQLwwVNFtRIDfFCNxICQeFGLfIF5JSbViIDRh TYGfHOCyDIGjJRCldv1AMXBhGFOoAxLrZiVwVHKmOQCeOBprNAOkNXEkQUO8BYAkFRFqHN0PBkLrEQMj ZLX9RQSbUSKoJGNaaa7TIESaPYXoHbJ8FHKlLEXkHT ScYXfvLGOpIXEdPaJjFUKaVZPdUE7XFjYwEBYvXIT8XcKvMQTrELGmvf5AVGWsZUEwDYSiZXXdESRmNG ZtKBqrSZHyNTOuEpH3UTHjGOXtYZ9ZHnHbEWFsUtI2ZhHcLUOgCMUxxj8OKXPwJMQmMBIcBDXbZNWoKV HvUKlbDAMpHUHkWNY6FLByYRHkKI8TJiStFHGjHzD1 DOjkSQRtHAUrkz3PMGIcYNA6HfO3LEXrFNQnCXCeFVzbTHQcSZbjMhI9LIKeICZuTY3OJoVzTUVwHRV7 IYPtUXWcWSOjed7NVSRsGAOoRDM8IWFuEAEgWUBzDLmlUUKlCTH9WMjwBKOdQTUrDM5CEfWyKJKfTqSk EVlmMMUnYNQxfj9PPDLbUXL9JtH8VDAjCKGlBRZpWK qxZVRpHCM7WLB9WWSoDFSmWC9PDuKaQUImPhc9FttuJIJlOSYlac1XVKRrPHU1BHB3KzZlMBEvYTBnCN ssZVXpNNqeMJL2OXVkDRAfGI6EBtAqMHhhAEGRDtl7UZhxY8e9HDLqCA7XK4Bod1HaLuovLNTVBAvyXL 5wlcWoWJZnXa6OF7eFGsu6ZAWrGzEdTAieATHcUgQt NMEcRZSsWcV4HAD3YOCeCc9cRGzbF5RvLMRnHXH8EyEuQDZ7BJJ6KaFpYXNxOhh2BWF3IbFdEQ6NUn8H CdG5FBM1eZPxOt2DTFdvBwWcWIhtGCZOJr1A ID Date Data Source [id number] 07/13/2019 05:06:33 PM EDT [facility] Name Value Range Interpretation Code Description Data Mellissa rce(s) Supporting Document(s) &PDF [facility] VMVNXf0aLzHMHlHf99/GGGpePOVqh5XxBVgpNCy3VRivDGZcP4QbuSpaWBoMG4GWZasNMINKQYOLAN1z G [file] AgICAgICAgICAgICAgICAgICAgICAgICAgICAgICAgICAgICAgICAgICAgICAgICAgICAgICAgICAgIC AgICAgICAgICAgICAgICAgICAgICAgICAgICAgICANCiAgICAgICAgICAgICAgICAgICAgICAgICAgIC AgICAgICAgICAgICAgICAgICAgICAgICAgICAgICAg ICAgICAgICAgICAgICAgICAgICAgICAgICAgICAgICAgICAgICAgICANCiAgICAgICAgICAgICAgICAg ICAgICAgICAgICAgICAgICAgICAgICAgICAgICAgICAgICAgICAgICAgICAgICAgICAgICAgICAgICAg ICAgICAgICAgICAgICAgICAgICAgICANCiAgICAgIC AgICAgICAgICAgICAgICAgICAgICAgICAgICAgICAgICAgICAgICAgICAgICAgICAgICAgICAgICAgIC AgICAgICAgICAgICAgICAgICAgICAgICAgICAgICAgICANCiAgICAgICAgICAgICAgICAgICAgICAgIC AgICAgICAgICAgICAgICAgICAgICAgICAgICAgICAg ICAgICAgICAgICAgICAgICAgICAgICAgICAgICAgICAgICAgICAgICAgICANCiAgICAgICAgICAgICAg ICAgICAgICAgICAgICAgICAgICAgICAgICAgICAgICAgICAgICAgICAgICAgICAgICAgICAgICAgICAg ICAgICAgICAgICAgICAgICAgICAgICAgICANCiAgIC AgICAgICAgICAgICAgICAgICAgICAgICAgICAgICAgICAgICAgICAgICAgICAgICAgICAgICAgICAgIC AgICAgICAgICAgICAgICAgICAgICAgICAgICAgICAgICAgICANCiAgICAgICAgICAgICAgICAgICAgIC AgICAgICAgICAgICAgICAgICAgICAgICAgICAgICAg ICAgICAgICAgICAgICAgICAgICAgICAgICAgICAgICAgICAgICAgICAgICAgICANCiAgICAgICAgICAg ICAgICAgICAgICAgICAgICAgICAgICAgICAgICAgICAgICAgICAgICAgICAgICAgICAgICAgICAgICAg ICAgICAgICAgICAgICAgICAgICAgICAgICAgICANCi AgICAgICAgICAgICAgICAgICAgICAgICAgICAgICAgICAgICAgICAgICAgICAgICAgICAgICAgICAgIC AgICAgICAgICAgICAgICAgICAgICAgICAgICAgICAgICAgICAgICANCjw/jTBxT4jdzVJngxH1D3hiMc 6QRj0RHG3ci3GqBPCqGDgdidTqLimPYwJxKQYnRjrN Ecf3RHcfSB6ApFDwH7WbK9IuKPkzZJ6NKWQmJRZsoHQwQSInVTNeXcF3USGnBHycVD8IbUZuMBsbFIUw QCJsWiUhTWBjKR0NNBBkV265xoWkCt1TAe9HSaAqMK1crb8HMiXoPEXdEfpYOam4FKwpFW8MgJEhK5Ho jJCge0wTCoLhZ1FBRVC9IAOdYn7REIOxJsMeKYOdGU yqLF4zGPDaBFZEmCompsH5DF4UUJ7zjeFgAH8YLeAfYh9sRb5NWgDtQ8QlI2PlHAUgJABIEZszNN0XTY ReSVX1UYQpJIDoKTGUHzNqR09dFT4EB8Psk16qEvM5GEFtMoXmBZrcQO44dAvjjvTruUEunXzqDX9AZq 4+DQplbmRvYmoNCnhyZWYNCjAgMjINCjAwMDAwMDAw LYTdIjO1VfKfKx6UEMKgAGYfVOVxOzCfTIDsPIHjBCkyOBAsGPG2ErHrCPFrPRQlYU9LCeHeZBVtPNb7 HSKfXXNkDRYncn6IYYVeSKWnSOI4JRKgPXUmORWdQMizNUEjZYGvUki4DLFgHNCiYJ3THpXxTNQxHQA1 EIIjILTfDWGhld6WLWXgFHRfJZF7WuCuQCCzARRwRT vpTQNhYVK7TDuqKQVgACVuYG2OPeMhCONaEYH1OoikQWIrYJZdkt7RVSZnJSWaQnVfXAGlBDZwUYBvCN pbTRNiFWN3IOC9SGWnYHMcIK6BEiIwVABkUAm3PxRdZKOaDDGnso8IKMIyDPAzIfd2WgMiLDGxMHMqGS fnBLSiCPO8EFB1DCHdWSXfAR4RSjYiVFNoEPrwClIy CHNxPQOlkr6ULLOcSZVlGHCpSRFaQYMtRYGtOZlzSUUeSGV5CKG7ZYUzLRZkJY1WWeKpFQDtBJShGOPj UKVuOLEoyg4KPTGgNWGgPQPjERQsYKOiMGHpMAkgKZTwLFH4EnAhSSEbQOTuFU3FNyIuAEBcTwHrCNFp WXSbNMPiic8JsXFrzNqnty9CWYjRBd6SwBduNLNePU inHg9qnGQtQNNpQDNHUj9UetXeCBKqEHLOGNbvAABwAQX9CIZiQZprNKH0FBAsMXZ9TBD3TwGkOPQ9RZ eeWAWnDcK1IlhyVLW4YDGoKGJrJZE2MMDpFEZoEOM4YDL5WoJvHkW+WZ8jHIu+Js3Mz1CdnhD0ozUvEZ tuJRE7CX1ZXDDPW1ZEBg== ID Date Data Source [id number] 06/29/2019 07:17:00 PM EDT [facility] FASTING: UNKNOWNReceived: 06/27/2019 at 07:07:00 [facility] [address], [address] [place], [address], Giorgio Lozano MD Received: 06/27/2019 at 07:07:00 AMD : [facility], [address], [place], [address], Florian Oseguera M.D.,PhD Name Value Range Interpretation [...] is approximately 13% higher for peopleidentified as -[place]. Glomerular filtration rate/1.73 sq M.pre dicted [Volume [...] results) [facility] ID Date Data Source [id number] 06/29/2019 07:17:00 PM EDT [facility] FASTING: UNKNOWNReceived: 06/27/2019 at 07:07:00 [facility], [address] [facility], [address] [place], [address], Giorgio Lozano MD Received: 06/27/2019 at 07:07:00 AMD : [facility], [address], [place], [address], Florian Oseguera M.D.,PhD Name Value Range Interpretation Code Description Data Mellissa rce(s) Supporting Document(s) Natriuretic peptide.B prohormone N-Terminal [Mass/volu me] in Serum or Plasma 170 pg/mL [facility] For Heart Failure (HF) diagnosis, refere nce ranges inpatients with dyspnea are based on Chel MCCURDY, Et al.Am [facility]. 2018;71:6760-5368.18-49 years:<= 300 pg/mL Normal, HF unlikely>= 450 [...] Clin Biochem. 2010;43:1405-10.For additional information, please refer tohttp://education.[employer]/faq/EGF554(This link is being provided for informational/educational purposes only.)NO COLLECTION DATE RECEIVED. WE HAVE USEDTHE DATE THE SPECIMEN WAS RECEIVED BY [facility] THE COLLECTION DATE. IF THISIS INCORRECT, PLEASE CONTACT CLIENT SERVICES.PHONE NUMBER: [phone] ID Date Data Source [id number] 06/08/2019 02:17:02 PM [facility] Name Value Range Interpretation Code Description Data Mellissa rce(s) Supporting Document(s) History and Physical [facility] EAWKCe9bBhLRZnOt55/XEDqcFUVks6TzEDzzPGz0GVifFBMcB6ZzMLQ2kO6dECS5JBgWAqDkOdBnOnEx m [file] AgICAgICAgICAgICAgICAgICAgICAgICAgICAgICAg ICAgICAgICAgICAgICAgICAgICAgICAgICAgICAgICAgDQogICAgICAgICAgICAgICAgICAgICAgICAg ICAgICAgICAgICAgICAgICAgICAgICAgICAgICAgICAgICAgICAgICAgICAgICAgICAgICAgICAgICAg ICAgICAgICAgICAgICAgDQogICAgICAgICAgICAgIC AgICAgICAgICAgICAgICAgICAgICAgICAgICAgICAgICAgICAgICAgICAgICAgICAgICAgICAgICAgIC AgICAgICAgICAgICAgICAgICAgICAgICAgDQogICAgICAgICAgICAgICAgICAgICAgICAgICAgICAgIC AgICAgICAgICAgICAgICAgICAgICAgICAgICAgICAg ICAgICAgICAgICAgICAgICAgICAgICAgICAgICAgICAgICAgDQogICAgICAgICAgICAgICAgICAgICAg ICAgICAgICAgICAgICAgICAgICAgICAgICAgICAgICAgICAgICAgICAgICAgICAgICAgICAgICAgICAg ICAgICAgICAgICAgICAgICAgDQogICAgICAgICAgIC AgICAgICAgICAgICAgICAgICAgICAgICAgICAgICAgICAgICAgICAgICAgICAgICAgICAgICAgICAgIC AgICAgICAgICAgICAgICAgICAgICAgICAgICAgDQogICAgICAgICAgICAgICAgICAgICAgICAgICAgIC AgICAgICAgICAgICAgICAgICAgICAgICAgICAgICAg ICAgICAgICAgICAgICAgICAgICAgICAgICAgICAgICAgICAgICAgDQogICAgICAgICAgICAgICAgICAg ICAgICAgICAgICAgICAgICAgICAgICAgICAgICAgICAgICAgICAgICAgICAgICAgICAgICAgICAgICAg ICAgICAgICAgICAgICAgICAgICAgDQogICAgICAgIC AgICAgICAgICAgICAgICAgICAgICAgICAgICAgICAgICAgICAgICAgICAgICAgICAgICAgICAgICAgIC AgICAgICAgICAgICAgICAgICAgICAgICAgICAgICAgDQogICAgICAgICAgICAgICAgICAgICAgICAgIC AgICAgICAgICAgICAgICAgICAgICAgICAgICAgICAg PQToRRIxOHGkQWRgOUFnEXLcRPUoCEQaBXNjDEQaECNzUAUfGCFcYMLzOTf4B0ivPGUfQKIpXL0cDSu3 Jz8+QFfRSrFiZEO6mcQlzL5YWV5bq5YuQWonJHGoz5YxELj6OW6HVLXkCRwpYY0GJYffyy2WRNSaLPCd aOKIh7mkNoYfUNK3SPXpPcfcXR4VEEOpE3uipbQvAK KgWWFKEJhcXSERPGccIHCGPYPeQBXfAfFmDPzuQM5Qv9PvbRW8SEq+Xi8FKZ9rj3UmYZsuQAOpXD7rvq 6KRAqJAsXrT2AxdzM8MUIkJVQgXm2HCBYhTORrxHJhOmWhRYVPHgRsO3IifZ98MXIEVp4+DQplbmRvYm xIVwHwTPEhd1EyJIx7DR8WSVCwJTw6cEHgLYHJXJV9 AFH4BbGvdKJABBZ9QTaupQeyTG7XRzIvPOAzZc7yJb8mIWGfQXCiEbF1RWXSYL8QHCRwBADpiSTeDMIu IXISRG3QWDdkEYA8HDUmbqPrdGSqAGvjQT7UYCZtqcBvKyIkMYJUFAc+Lc6FKJ6vf0YuMGecJoOfHH5u im1YNJhYNjPpC7W7oSOyH5L2GDvkDz5AIOWiMBDtHv oeIEBOFMopST0BSG2pphB3KJ7ZhKFtAVIyNCTbgDKqQUt6W18lkLElEYovFF8CVNJ+Isiah+Us6ASVVsWW UdNWOwAdRhFRCFWlYhP9SfP9WAh4RpO7LsNU24xNheyzDnQEnnPK1FTO6mBIEgPEISPL7UyJCvtJ9uwa AkZLEiZXVVLdEfP90nvVPoNBMmUCVmOINrDg4ZMLDu U3ZkueRgiKvuntJkQQRdIPNECO0ZCGrsowEsjGHamWnbAK88kBvnKI4KZc5EObTxZC1hnm3CxBQjCl0B WBCbUQ4SRWUxXYXrCPYeSWK7FSGhMyLfHEmwHDSoKWFeCJC8EZTbWNFlLR5XJkVnDMRaPkR7YMNqXULf YOYems2SLQUiTAGqOvTgTmSpUBZyQMNeEDreMUDhUH RbQQV8UKCbTEZiUY4OOaYmAZElJGUkMBEdPZFvBSKynb8CJBLzJESyPpZ9QqRbAJRtTUVpMBnzEAGcPK N4Ogd3GVHqFGPnTC3SSbZoNICuZYS4YNUvPGPyIJUniq4DILQlJHLfGZA9ACNxAFFeLOWzEEedWGOoXR GoCYf6EVVkGDYjGZ1CBoDuAWCgLYW2XMRcMNKoXTBb xh5OTEJnYYFzEjE6KOLhXBPrWIRySEusPUYpBUS9FGY2NCNaVQZlJF8FVfCaPPUuXXEoCSYfDZRyFZMj cx5AIWVeCTTwJFJgZYXoCBPvJGXeYDjsWOZsCAC0Lel9WQCsCACaPJ2ANxSiRVCeZHS4IIknVPWoLKSi sh8KQRRhLTQyYUb9ZyDiHGMwNHGcUAodEMMoJBF7Cx Z3AQXoUUEcKP4HHdTmAWAjHXP4ZLDrDNVyJJQcoj2JMOPhXBKcEjOcTiGuOUIjXAFbRHugXRBjSHO5FX BhOLXvVTGyKJ2UAgQaQYXcMeb2DjKlRHZnHVFkja7VDCTjKVVdTYLgJRRcJGXkATDtDVsiKAAiVVH3Nb l4HOToZNAcVD3ONaOmLVGnDyu2IrRmHSDgHSApox7O MCUmXAPpSSJ9IGVwMVDnMIUcIPepMEKhWOOyRII1PHLzSJFvSO3YUxKnSOMrIcC6PnXrZAKcVTEqcr5P MIQfDPDeXQT4PeRcNDSpAPLpMUrxJEVzOPBpZrH9IMNeHAXjUK1ZPgStEBCkKdO4PFVaIMHyGSFyxl9G DAChXUFcHxivZcJaWBRcMVJeCRz4bbOoiOQhPHg6TC 5PG3BunoBtIdBLRp2Gc149UPHuCRUoRr9SP2zjDk6bTWZmSYSXSm5JOKp8SHN2DLCrFoF8TFcbZhT6HM JlMDYyMjJhYjUxMzkzMjA+QGioZFC3MDAgGxN4KBEyPXl5RxLhNpOkFyOmXOUcRZMwYX4nJPPNRz7+DQ ejyVVtsTonDZVWZnKoGPaxPYjxGNBOIf8Z ID Date Data Source [id number] 06/03/2019 05:03:04 PM EST [facility] Name Value Range Interpretation Code Description Data Mellissa rce(s) Supporting Document(s) Progress Note [facility] ZQCMXy9aKiIJAqKv49/OLPjkXKPsl5RgZQyrXYk5XZocWFUwG0GvYQT6tX9eJJZ4GMcCRzYnNfVrCdS2 lbm [file] ICAgICAgICAgICAgICAgICAgICAgICAgICAgICAgICAgICAgICAgICAgICAgICAgICAgICAgICAgICAg ICAgICAgICAgICAgICANCiAgICAgICAgICAgICAgIC AgICAgICAgICAgICAgICAgICAgICAgICAgICAgICAgICAgICAgICAgICAgICAgICAgICAgICAgICAgIC AgICAgICAgICAgICAgICAgICAgICAgICANCiAgICAgICAgICAgICAgICAgICAgICAgICAgICAgICAgIC AgICAgICAgICAgICAgICAgICAgICAgICAgICAgICAg ICAgICAgICAgICAgICAgICAgICAgICAgICAgICAgICAgICANCiAgICAgICAgICAgICAgICAgICAgICAg ICAgICAgICAgICAgICAgICAgICAgICAgICAgICAgICAgICAgICAgICAgICAgICAgICAgICAgICAgICAg ICAgICAgICAgICAgICAgICANCiAgICAgICAgICAgIC AgICAgICAgICAgICAgICAgICAgICAgICAgICAgICAgICAgICAgICAgICAgICAgICAgICAgICAgICAgIC AgICAgICAgICAgICAgICAgICAgICAgICAgICANCiAgICAgICAgICAgICAgICAgICAgICAgICAgICAgIC AgICAgICAgICAgICAgICAgICAgICAgICAgICAgICAg ICAgICAgICAgICAgICAgICAgICAgICAgICAgICAgICAgICAgICANCiAgICAgICAgICAgICAgICAgICAg ICAgICAgICAgICAgICAgICAgICAgICAgICAgICAgICAgICAgICAgICAgICAgICAgICAgICAgICAgICAg ICAgICAgICAgICAgICAgICAgICANCiAgICAgICAgIC AgICAgICAgICAgICAgICAgICAgICAgICAgICAgICAgICAgICAgICAgICAgICAgICAgICAgICAgICAgIC AgICAgICAgICAgICAgICAgICAgICAgICAgICAgICANCiAgICAgICAgICAgICAgICAgICAgICAgICAgIC AgICAgICAgICAgICAgICAgICAgICAgICAgICAgICAg ICAgICAgICAgICAgICAgICAgICAgICAgICAgICAgICAgICAgICAgICANCiAgICAgICAgICAgICAgICAg ICAgICAgICAgICAgICAgICAgICAgICAgICAgICAgICAgICAgICAgICAgICAgICAgICAgICAgICAgICAg ICAgICAgICAgICAgICAgICAgICAgICANCjw/eHBhY2 mxgKVmpuB2H0ngJu2THf2TMB4ut6AlCJOdYPpdlbLzQrnOUdKbQRKpRnwCJkz0OGcdTL2AnHShW2OjP9 QxAXjgPN5NYQGyPSMewHGkDNOpVUXtKfY1SMBuUFnuQQ4NrOSjSBzzDWWcEVQqRZ5UTUHzL768wmVuCG 3EPt0LVbYoWE8ajl8RZOVmFPXuUscCUgf2SZfqUJ9P lNKawGTsFRCkCMOUHrVsE6mez7ZoPEAbIYMBMMhpEM0Fc8QrzHPzSFh+Ze6NEF3yj8EjGZavCKEjKS7c vn9NMTlNXiVjS0MjaFqtAABci8bnAQKpVT1nvQMqTDN8QAA3daBacKHuTLDBm3jdIwryDr3qSWKfMg2c Lh4zVKLcCRL7TkRjILOIPF6PEMRlBFAinZTnBDMvIW YMVS1LZRzxGGN5GCQpigQmpKRbDHnbAF7ZNMLaozRdWWWzBADBAHs+Tz6TCT8vd6XqKNfkIyYcUA3jbr 0LHBiVZsYnV7A2wCKwV2R6UAxfAx5PCPUbDUYeDRAwTWQDLFgkOY9FIC6zhyZ4AO2OjYAfZBGyCZMgeQ StKCy0G38roNTgEGctXL3SPVC+Isiah+Az1YJUBbCGDz PVTnCsJiVONKVaFyX9YtS8NPw7NyG3SkGI85pVqrovDqZOvwYP5DBK5sYEMaSHNBMM6PnGVrpK2nouCl RLXeDXCHDuRrK59kdCFzMMUlQNXyABJsMf7PNVTcY3OragFpkLtkjdUeAZFsXFLBVC9SXKmnpqCniLRi kGyzWM08gCqhOU4EIu1GOwIuIL3xpn7HyWYyOx8DVM AlHm9MVVUzJLIeHZMrPTZ5USZcPmZcKCjeLEVsSMNoFKQ2TJPtJYNvCT5GSmOwCHEyCCV0XxheXRInJL Lswq9TJJZbLIFvTsC7PlClFJSeATHiKMrbPIUhXFKyDBN7MSFkAIGuPU7STmHdCAVrOJX4ZAccHCHzLD Eyuc0WFHGeCTOmCMddPLWrUXOlNPCgBScmCYJcEJOj IlkiRYLiIBNcQF7ZXpVkPDJbLPB3IwBiRNOlNPWirc7WGNElZMCtCtG9NdVcRECnABVkSUlhGMXrEXL3 FLR9YKIxCFEbTW4PVcDyZSHhAFQoRGNbCUCdIWYbhf2OSMKkYYUdOBDvXmZeCWOqSBTdRFbjCHYfSBG2 IQA8PXLqCUJxZI3CVpPeLOTwUDBoDLLaBHQtUCBptv 0HERQoOVTpGnItSfVqRPMkJGSuTJtqKFRnFMG7MRR2GJBmWXOhMC3GDnVaYUoaLAIULcw9BHeaA8o9JA KcNu8TB8Fnf1PlCEEuCGVSAYraBT3ccrJcDXNbWt8EY0yKKakyNnD5HBG9KZbiFbU6PzM4DfJzWjioJi CqUHK0JPN9NU5oIJHqZqUwKBu9BVQwZmpfDNC6UwCo XWP4YlS3EaphRxPwRyKsSP2OIg3STbI1OIT9vEPlVm5PTpheUV7ZGZHMG5UFFt== ID Date Data Source [id number] 06/03/2019 04:59:58 PM [facility] XR CHEST FRONTAL ONLY [id number] RESULTI nterpreted by:Cale Larose MDINDICATION: Follow-up radiography after right heart catheterization.TECHNIQUE: XR CHEST FRONTAL ONLY [id number], 06/03/2019 4:43 PM, 75 degrees upright.COMPARISON: 04/09/2019.FINDINGS: [...] rce(s) Supporting Document(s) ID Date Data Source [id number] 06/03/2019 02:17:39 PM [facility] Name Value Range Interpretation Code Description Data Mellissa rce(s) Supporting Document(s) Hemoglobin [Mass/volume] in Blood 11.7 g/dL 11.5-15.5 [facility] [place] ID Date Data Source [id number] 05/20/2019 02:12:01 PM [facility] Name Value Range Interpretation Code Description Data Mellissa rce(s) Supporting Document(s) Progress Note [facility] QODAEp9hPuVVWnEq47/HKHekHLMnu7YzYMmgQRl2EKkhGBWnU2QsKAB3hU7xPYC1IPhYVcFaMxGuFlNe lbm [file] ID Date Data Source [id number] 05/19/2019 11:49:41 AM EST [facility] Name Value Range Interpretation Code Description Data Mellissa rce(s) Supporting Document(s) Progress Note [facility] ZAHDKl1zWeDICwKu92/OWDntYXNmh4WtKLfxGZq9FZwmKVFlO3EtYNL9sR4sDFY2JPjAEaVeXdOcMcKw lbm [file] AgICAgICAgICAgICAgICAgICAgICAgICAgICAgICAgICAgICAgICAgICAgICAgICAgICAgICAgICAgIC AgICAgICAgICAgICAgICAgICAgICAgICAgICAgICAg FNIpPT4NYQSnFPRfDTAyHMAhGYEvZEPeRLJsUCPwYFYoGZVtZWBeTCPlYJKeXXSpSUMbXWGgMOUtNVGt WFZkMJHbPXSwZEMxGMYvOIGvJPBrGOEvGAQdCTKkVCWzETPrZDCjNCKmGHKhBB4OCYPcHMGgFFOrZPDq ICAgICAgICAgICAgICAgICAgICAgICAgICAgICAgIC KjUVVfMHLsDTSgCEDdIIFoXMKvZSBeMQIbSAMxBSBfNHAkHSGqGLKdWFZlFUGxZRQcHKQlMCWxMP9NBB AgICAgICAgICAgICAgICAgICAgICAgICAgICAgICAgICAgICAgICAgICAgICAgICAgICAgICAgICAgIC AgICAgICAgICAgICAgICAgICAgICAgICAgICAgICAg XHVpTQRaZP0IXNQoMFDuHUQzCGQiIWEwWCLvEIFvHMKxTCYhIBMvBZLnNQZdKKMnELEmFAStJMNeIXXz VCKqRMRiCPYwGVBxTRMjWJEjKIXpONFaZGEdMGDxUDFyDDQsQUXoPPYjRMRnSDFfMR8FFUIxFTDlPCZr ICAgICAgICAgICAgICAgICAgICAgICAgICAgICAgIC AgICAgICAgICAgICAgICAgICAgICAgICAgICAgICAgICAgICAgICAgICAgICAgICAgICAgICAgICAgIA 0KICAgICAgICAgICAgICAgICAgICAgICAgICAgICAgICAgICAgICAgICAgICAgICAgICAgICAgICAgIC AgICAgICAgICAgICAgICAgICAgICAgICAgICAgICAg JWMxRBUnLEKmVT7WUNWzWLNzJOLuQNYtBZAzTQOsZNHyRAYcQBIbBEJiAGTaNSJjYUUeJLXcJPNzTHUv WKZiVBEtQYFoNGIvDZXwAPIbXKOoFFUzCQBxDNJtTIErTZPsFKRaMTWzJGZoABVqYXWtCH0YVFGvJSHc ICAgICAgICAgICAgICAgICAgICAgICAgICAgICAgIC AgICAgICAgICAgICAgICAgICAgICAgICAgICAgICAgICAgICAgICAgICAgICAgICAgICAgICAgICAgIC VpAF5ZSNBuGYKzZFKwLCEzZDDbMZDtFPGqVYRlWLWnYWUoJTJoPPEmNMZyCRIkBLYpCWIjCOZcDKVcCU AgICAgICAgICAgICAgICAgICAgICAgICAgICAgICAg CZUiDRQbNSPlRSIuPH4OBQ00kJFgq6T2TYLyTU6pgmu/Xx0HZAvzlfUjbFPjAD4QSeLeBF4kdw3GUeWf IA5kre1YGGyZHlJmB6W2yYKgIJRuCMFTWoNnA79lVAkpTm07VVoeXEPoKoDfWWf5Zm2DJcNwZ3haCNOw DoZ2KQAlBcS8THJrTvFyWYjpBJ1Aw4KjzRIaVTl+Pg 7LYY4dr0HgWHylLJBtRC8vqv4VKNzLEiCmE7ZxrqR3ZPI0JFNeUk5ZMXVoFZRpiPEsGMJeHPPKVuJfC0 HimB23JUQRMw2+MUsmuwKaRltBCuY0ZGFoq7PzNIs4FU3ZXWQjUOg8zAMvQMOzT4Xxo9CrVu19MXAqQm leQSMjsyRTRDThpHYbQB9HKSR7OTGhVc5oKSXdCYV3 CtZePKIYEH3SCHCtYCHgcEQuNXYwGIGCZI1KOCfrUPS9UCQakmRrwVTyUSgdTB5CKDHbsbDwIoHtOURE DQo+Ax1WMJ8hm1EqQDltQyAgNA2zdo3HHQxJFeZjX4Z5zHHvI6H7MYggTc9HSIOlAJTePmOoYTZDZMnn RJ9HUW1aupP8ZY5ZqPKaZDGwYXIlyPJhBYt8L89lqB KeOAxzVS3XCKJ+Isiah+Yp7PVIXkBDGmXTLsEuGkHMHGVaGhV6IjD0IGl0BwA2PdCG87gXlfunWcKXhlZX 2UKY0iGJIwAFSGNR5DwWXbkR0lboJhUQUxMNFYPiOlB35odUYmMEGnCTLgFMEzAa4TPWWvT5OsceAnbO zlrmEaCBDxXVLXRG5RNFgdisCekPVlgXlcBM85xDgb WH3YQe3MXtXwGD9adk5CeIVmLw6ZAKGlMt7BEQEvGZEpSBJjUSG5HAJbLsVbQSqsPKOcUNPjGHI5QYXk PDPuRZ8OXyQdMXZkRoH0MyWhJAAyOWVedw7DTFLjPSLvJZAwMKDyKYHqIMAdPMvjAWZiVGZuLAN0JWIp DSPcEX4VNsBlHXNiVIPsQtmvBYQfLZYgpq3FBEFcSE IhADJkViLvZTPcKLQvEAydYBVjRRY9Lqw8CTJwIGXwSV3HYoUbWGHmDMk8HBSyASDuVPFdjt9FOYXzKS HnEHM4BPRqJELbOBPhCDfmYZMbSGS5AoW8YBSnJICySF7RPjJcKUOtFDa9CypxQNEnZUTrqb1YELAhZB NfGAl3LyYhUYRhDJFgYOxcNQKwELX3BDn3XAVhMOAj TT8IQbJkQSDyDJJmKokqHSAsESBvhl3BWKEqAHJzGUMgTgGsXBUaXIXjTZjkFZPuOTTvSVR2DVYeTNEd HI0HRmHmVJLpLgHqLYroNOVwKIHvna0IQBZsPNCbTlH4SuWaMFBcVFGbMOxoCUSoYTFpETViVISmMRPs JV0USuXeABZjKwSfDQJqJANwHTNjie7IMELqTOGwVa T1QfGjKULoPAHrVCpiOYQnRTLfGbGrWZItLJJyWA8CMiFnWZVyIkUqOscpWQYhIMVhjd2OBKBmUMUgRO GcIpJhBCJoMMGlCZlnRFXdBNU8Vrc9ZJPqSEUhJL6EGfCwQOToMjB1XgvzBSBoGISmvl9JcYYybRfiio 7XJFmRNs3GoWqmIRM3BIxxKj2xkZYsZtMrHHDXNk9H amZvCELeTDVIWJevWBMoHEZfXjX1WMR6JvChVMLqJzZ8QIKiBkAwUkeeXuUjGnBcEsD3JcRhESxkVHn9 HBMbFZQ5JCJcBOK7ZNU5JIMkKYKpQMI+AJ9jDRq+Ht7Hs7ZoygY2yrXgHCfaLoM3Wo2AZSPVB2QHPs== ID Date Data Source [id number] 05/15/2019 02:34:27 PM [facility] CT THORAX WITHOUT CONTRAST [id number] RE SULTInterpreted by:Gerry Moyer, [facility] [place]:48-year-old female with increasing dyspnea, who presents [...] rce(s) Supporting Document(s) ID Date Data Source [id number] 05/14/2019 09:36:43 AM [facility] Name Value Range Interpretation Code Description Data Mellissa rce(s) Supporting Document(s) Progress Note [facility] VGFFJf6fLsUDBxGb89/QWEmiWQQdz6VjZSkmWLg7PJgcKWAfS4DmKYE6hE7qHLU3BDuFEsCpLuNsKvS3 lbm [file] CIvvpKAijMinOLZEGjQ2RlI8BAclWEBDVa3R ID Date Data Source [id number] 04/15/2019 11:08:59 AM [facility] Name Value Range Interpretation Code Description Data Mellissa rce(s) Supporting Document(s) Consultation [facility] CYMTFh6wJuCXAiXk37/OARxwZTUia7AaASvpZOo1CHhuOLTfB4HoMIT1wA1qTLD0OHxVWqZpMeZzTCO8 lbm [file] gx/0N4WkuFuQj+nldol79Es4x51JwQBEmLNJXv+SIjihXrDkqwmqvTqk6KvzhUy7HpwoZQkXd/OM/+LICENSED LAND SURVEYOR [file] AgICAgICAgICAgICAgICAgICAgICAgICAgICAgICAgICAgICAgICAgICAgICAgDQogICAgICAgICAgIC AgICAgICAgICAgICAgICAgICAgICAgICAgICAgICAg ICAgICAgICAgICAgICAgICAgICAgICAgICAgICAgICAgICAgICAgICAgICAgICAgICAgICAgICAgDQog ICAgICAgICAgICAgICAgICAgICAgICAgICAgICAgICAgICAgICAgICAgICAgICAgICAgICAgICAgICAg ICAgICAgICAgICAgICAgICAgICAgICAgICAgICAgIC AgICAgICAgDQogICAgICAgICAgICAgICAgICAgICAgICAgICAgICAgICAgICAgICAgICAgICAgICAgIC AgICAgICAgICAgICAgICAgICAgICAgICAgICAgICAgICAgICAgICAgICAgICAgICAgDQogICAgICAgIC AgICAgICAgICAgICAgICAgICAgICAgICAgICAgICAg ICAgICAgICAgICAgICAgICAgICAgICAgICAgICAgICAgICAgICAgICAgICAgICAgICAgICAgICAgICAg DQogICAgICAgICAgICAgICAgICAgICAgICAgICAgICAgICAgICAgICAgICAgICAgICAgICAgICAgICAg ICAgICAgICAgICAgICAgICAgICAgICAgICAgICAgIC AgICAgICAgICAgDQogICAgICAgICAgICAgICAgICAgICAgICAgICAgICAgICAgICAgICAgICAgICAgIC AgICAgICAgICAgICAgICAgICAgICAgICAgICAgICAgICAgICAgICAgICAgICAgICAgICAgDQogICAgIC AgICAgICAgICAgICAgICAgICAgICAgICAgICAgICAg ICAgICAgICAgICAgICAgICAgICAgICAgICAgICAgICAgICAgICAgICAgICAgICAgICAgICAgICAgICAg ICAgDQogICAgICAgICAgICAgICAgICAgICAgICAgICAgICAgICAgICAgICAgICAgICAgICAgICAgICAg ICAgICAgICAgICAgICAgICAgICAgICAgICAgICAgIC AgICAgICAgICAgICAgDQogICAgICAgICAgICAgICAgICAgICAgICAgICAgICAgICAgICAgICAgICAgIC ZvMNHhRLKxZQGyAGFoQCTyKGVeSERcOWEeBFKxKMYkUQAzGFAwNSFzGNUyMXJwKWOdRJIuXDGuVHf8X6 znQIIwBXDnPP1fVYu9Tz4+VIsRCbFoNFY3wwKgjB2X NV5zo5AaREsmBQFcv8DwRMd3XH3GLFXaRSajHE4URMvaxf0KBSKfREGnwLAYu3tfNdZuLEU5LRVdFmgm XH0PNMGgB0gqnwAqXPYiCJCVRTpmGQFBVXkoQBFQBKKeOPDdWiAkLDqxNX8Ft6LotHP0WSf+Pl0FCN4a g7RkVYxhBXLfCP6ndc8APLvGZfGxK3CqzgT4JSFgBM WqUy9QSKKoSZChmNImBqVyBYEUTjEoQ4TsqE53BKTBZq0+YCcccePcAtsNMnWfJJKiv4LpFPd7DD1FSP HkUPh3vBRmI26iz6SskHAdXvxzNE8nuSk7TPEGLU54BUckOF9WGVE7BIIuBpZnJiWtLImsUXC9JRsiCA 5hJCxmPC7KURF9EKzmJALbNXJbO6rQJgToXNRaFOTa eOztWD7IKxFdA8VkndHfnGFnFWCdATITOp2+DIqsipJyYgiOGzFiHCCna6NyCVp8KP7XKQWoEXzqSZ8Q GALoqR5sLJlyHJ8QCyClFDCvIDXGFnCdQ10ipSMzRQz9N5VkNmGgTFFrHnnaNXNbCNhlAnMeIXLjXpOm DQogID4+ID4+XHtvXV0DACzsruVpLULyPk6KXQFzQC UwRR9dVKSzJYCeC7N6hFibVNZQPjGrK2iafeatAW1hPZJwR622pKkshuHkBNWtHSSyJs4WKBClLTP9HH FbpMEnHtHrTCXNFObbUP9MaOJrPPU1nQ4aSDqhUTKpANLtN7mJFtLinMloXO57tNgpurSimUSvAEz+Pg 6AUM4bq4AzZFw7lcAdUWonXNO6ZBgqKWCxWJLyPVTs XAO1HLF2CGWJTqYkWJTcIBBwLRfaRLIiYPGlfw8MGXAbMVEgJPX5ZFPtYTOeBAXzHKwiWXCtVZQjHFQ4 SADqBSFcSH1AJlUkAVUaQDGfEAxvUAStMVAdzq1CQJIiHYDsNeJ9VUYeRSXlQUIlQLplDTDtPINyIeTu PRUqQKYyYG7AMfOxDUDnDJX5NkUoSQOmXISxcr0HGQ PhELSeDUsmChLlEHRwOEImLPbnYXLoBRG6JZA0BTRkOIThQE7EFaCfQYZwJNobSfCfACOcKLGibv1MCJ EdQSCcAnWjBLWgLEFnFAVnORtaHKIpXPJjHdY4ZYDfPJVeHD3XOrSuFMPgNEA4VsfeYTSzRQFmvd7IGK UqMZGqAqi2LSBxYSIlUHVyBCwkTXFxDVE2XZA7NSEa POOzTY0NGeIdUHCzSXDoDCVdDAIpUJZrcc8KSTLkRKZrTOAfDKRbPAUqKFLcWWtgAAIrNVS5KZB3JKNi XPUnUF5AXmPeVFLnGBYwWlTpBJSgLMPybz7OFBNjPGUlRaI2KdXwCVMdTEToODidSWIaYRC9RoV4TVDl GEIwYV1FXrWoYKKfKnmrDgDpIGUzMAKcpe4BJNQpYY YrGPL8WYQlUQRzFXFiECocPPNuJOT8WzV3VGCiKPHvDI2AVkQeREJuJxg7QZgwOQDtFAPebf3ORGKmMG LxNIC7OhVpFXPiONYpNYqwIKTkIPM9KMq2USUbWOPxNR5SNqDzKKOuVeWhGhNiANDtQKPzbm9TEROwFQ PhDZM9PkVsXTCpTKKeFQsmHDLtYUWwQsk8IGCkAGQb OJ8IEeXtSFUbWdIkJLCdTJJqBKRrqd1ZUUAlBMErJtWgPGCeHUNgTUPrVTiyKQHmHFQoZZH2WOGgWIIx FD1HRoPsQFbfDXZRIjn0LGenZ4x8KJYjEV3HP7Iwz0JbWtZjQNBGTRflRV1ukhHmUAZnBx6LB3wHKeg9 IKq0SJLiJtysOzB4SfzjGJZpBAgbCtB1JZznXXLnLr 6jMJI1CFq1UIIoCJXlLtriNXYvAZQfHPMzTopoWmDcUZLmDkIyBS3FIl1OQzF2NMN9bHMlZa3FCiC5CT RGBfTpYD3IZQq= ID Date Data Source [id number] 04/12/2019 03:58:25 PM [facility] Name Value Range Interpretation Code Description Data Mellissa rce(s) Supporting Document(s) History and Physical [facility] UMFBXa5lOxGXYmJn70/EGGbhNNTaa2WvCUzmPZk8WBiqGWYwS4XqHJH2pM9gXIY2ZXlIJbUaZdPtSDH9 lbm [file] n8e5+iNx3A5Fewy8RM7kfwx7JDUDuMYW2akoKf+Patience CsSHsgqfUc3dye8yuy7hJq+bPu/R0aZm/Ajpw4UU/GYiyv07h1rJkynGFL6ChzRrh9lLsNEsIrcA/SNH ONUJjAPY7Yviyez+O4HhwO2XWCA2f6x0yALg2XUr4vgWASVhH4lBHZDayaMloexkqf5mWJNDjngOH8wq JtbjVA+BgnLeKt+fY6Q/Hw+Vbp9697CCppsAstb0P4 nw3bq/nYhlqH+RYlCXoo7ZWd9Vhau+4/FpFAX5wLhnHQ76Ya9Hm/xg7MCp80m706CVB6KhU3G3WhF3nC 4Q8cK4dHWQtcayKve+W+iuYgKN63v7Ag+yw/N0od57pt1804lhbWIa1dh5aVJn4/C6IOGxdnf/xL9+6c Uxdwt55l/zC5F9hZaqlpw7XmiyHEZIvR1avV7zhw8+ r1NMtmxV1VpdJxcPWvnKLIekLMjhDzlH9zH/+nON5GDeAzv4I0NnQfto7V8CQCqx1sZJxJt5rHvtzX5v 8VLny/Tt51BMUM5g70AQclPRk/G1V8ZN5aVn+hsrgYtJ1PZGtYr8ECh2ndYFBb5679jgPHq/zb6ac5ue hauser+U6+/9N2/J+2y3/rwE2Z6hA9e/Cnvss0fSlMsaMJ +FxTnQhcPvC3TPTeDzN6M/sd3M/ZSUypm8bnLEYidrb+Yl2a8/yIRdoDHB5srS4itpTzQGo4UOP5Cayo 9MW797wh4z0SQ2sp1Z3t9/b6HO/OpKwjT00MhO6pIwMjxg8OQ+tBrWu3kbpfX8Q0w38+l1ocL0uqQJ5u 9Q7enBVJ+br1W+Hr9GHD8k+Y90AIYBmqBlc1TLb7hH 8lv6CD0wE5mHzE9+BJ9gBGk8qryuE6elN04X42wncjVNj6uFah2qM+bds7ALznpwhTpx2I2ZVvfn5Pbl jNiGy6zFyK3dLxb6WZpovyU55ln6Y3A0o5Vd+N2bkKavlfePsu99v/hu/FLJqORlyEu3eCgI58od1a46 dT+0uzoMc/IJ+6+9Y4neuPjoTeJ3tEYSsvcHIqFzNY Y4Y2s7DqiLSUxxPSVK1hQQXjYO05lBiEtto5Mq7e0oHz6T0QvHIAyBbW07ixUi+FfvIT+AFNh/8NUANr fgOkVo4klNFieh47diqqC3wfY1fffJxla6Jz0Gwuo9rMEY7xu9dioqGylIgJvTJ+MdLtstfvvK/A/prescription clerk [file] gwMTJmNGVlZWRjYjI+WW6qYGv+Ad7Wv9AhvgP7udBeXTldQzwqPg9PFGSWI5ILUb== ID Date Data Source [id number] 04/12/2019 03:57:55 PM [facility] Name Value Range Interpretation Code Description Data Mellissa rce(s) Supporting Document(s) Consultation [facility] OFIVJs4sPpJAIfZq81/RWTskNVWvv6UzCWqyTTp6UJllFFXjI7KwYET9tJ7rCQW4RKiWRiDwTvKbKSZ7 lbm [file] AgICAgICAgICAgICAgICAgICAgICAgICAgICAgICAg ICAgICAgICAgICAgICAgICAgICAgICAgICAgICAgICAgICAgICAgICAgICAgICAgDQogICAgICAgICAg ICAgICAgICAgICAgICAgICAgICAgICAgICAgICAgICAgICAgICAgICAgICAgICAgICAgICAgICAgICAg ICAgICAgICAgICAgICAgICAgICAgICAgICAgICAgDQ ogICAgICAgICAgICAgICAgICAgICAgICAgICAgICAgICAgICAgICAgICAgICAgICAgICAgICAgICAgIC AgICAgICAgICAgICAgICAgICAgICAgICAgICAgICAgICAgICAgICAgDQogICAgICAgICAgICAgICAgIC AgICAgICAgICAgICAgICAgICAgICAgICAgICAgICAg ICAgICAgICAgICAgICAgICAgICAgICAgICAgICAgICAgICAgICAgICAgICAgICAgICAgDQogICAgICAg ICAgICAgICAgICAgICAgICAgICAgICAgICAgICAgICAgICAgICAgICAgICAgICAgICAgICAgICAgICAg ICAgICAgICAgICAgICAgICAgICAgICAgICAgICAgIC AgDQogICAgICAgICAgICAgICAgICAgICAgICAgICAgICAgICAgICAgICAgICAgICAgICAgICAgICAgIC AgICAgICAgICAgICAgICAgICAgICAgICAgICAgICAgICAgICAgICAgICAgDQogICAgICAgICAgICAgIC AgICAgICAgICAgICAgICAgICAgICAgICAgICAgICAg ICAgICAgICAgICAgICAgICAgICAgICAgICAgICAgICAgICAgICAgICAgICAgICAgICAgICAgDQogICAg ICAgICAgICAgICAgICAgICAgICAgICAgICAgICAgICAgICAgICAgICAgICAgICAgICAgICAgICAgICAg ICAgICAgICAgICAgICAgICAgICAgICAgICAgICAgIC AgICAgDQogICAgICAgICAgICAgICAgICAgICAgICAgICAgICAgICAgICAgICAgICAgICAgICAgICAgIC AgICAgICAgICAgICAgICAgICAgICAgICAgICAgICAgICAgICAgICAgICAgICAgDQogICAgICAgICAgIC AgICAgICAgICAgICAgICAgICAgICAgICAgICAgICAg ICAgICAgICAgICAgICAgICAgICAgICAgICAgICAgICAgICAgICAgICAgICAgICAgICAgICAgICAgDQo8 M6xxIXDvPMHmLS9bMHh6Pc5+ABtVZcVdAMV9fzHkdN2OEE6eu0IxLLflVHGbe5FlEYo4MG8DFADpUVec JA6MNYjnhx8DKHLyMTFtyONAx9rxMxJxIUZ2GGNcXg ryVM5IZYVmJ7rolcDeTWSpVVUSHCecZNRIKTfnIUNMJBPiLHXiPbPxXfShTBAwMZTlKZDIDQJ1TWTcDe YkDVYkNZVsYN0GWWHyQ155gdYcPA0YOm1SHrUmRH7hxb7OXchnLBClPpiIDcb7NRekGD6XqWBctNK4NK HlRCAGZzAxI5dpv4QyJSBhGNZWLOcpVV4Hm2BjkGJy DQo+Ds9IJN8sc4NuFEs5VDCxQV6tjl8XEIgVKoNmP7VpjVtiRVPrnkT8dUKzCKQ0TAPleJUkcZIEeLOy HNgcCBCQCdSmpIAdQc3cEV8xAQV5MPAuZcOmWKEFEO7KEFGoAKSttEUjVWAjYACVTK9TWQqlBFA6QLCf qzOvfNBpGGrkZR7CZAKcxmWcGpzvFXPZGAq+Pg0KZW 6xy8LjMJw0YPNbMM4jxg2QMLiJVgPuA4D0gRZkW3M6BSviWm4BYXTbQOCfWmhvBDJMDQhpQI1VZO1ohj P8UP6IfAXgEKMrRMRosUAnYBh3J45olWYqFPxsGB5JKNT+Isiah+Re6RRZYxAMNzAEIpFvHcZJXJEnHnZ8 QvP5AYc6GgJ2GjUT13jNujpwIwKZxqEN3IBJ2qSXMa PPCTAK7IwHToaK2djbMtJHUgKRGGYsQnX08ceRFhWSOxQEH2XSMxOh5AWILqS4BqbrSasNxtfhEkIXNf DNPLIS3BWWzbpsHhpWYbrUpnXX77fLflUL2AQy3UYaNuBU6uhq4BjZJzBj6NYOH7Ny4PZSTrTLRiACNd QJB7QJUsXxGdETpvNJYzRKAhMWN2DOXjRJJyGP6ENr TtNFWmXuL9XLibNHIaUAAhlz2JIPQyLDM7SLN0TNWfBYYjZKFgKZmhAJVcMFQqBSQ8FOCiSQErLQ8MVh RqJQNmZVP8DvuuSAMkIAKyqy5JPRGcJRCdGXAvQfOaVLYeBOKsLTmuQXGtTKW3VRt4BPBaWUEoWI3GZt UhUZXpIWp8AJZvWZFpGHPbwb7PKKUfVFKtHXNnKSQq FHMcONWbBTmhZVDaSLZfFIN7LBJzLLBtLU7XUiXpMWWsQIF9HAJuKYQoOLPqxv1RPCXzWYIgMFNyPOJx OYMoZNWxMRilMJFbQZU8SBqpIGQuYAYwAA6CNaScRBBwIPuxHWzpLHXkHCOcmv8RIPWqFTUtEOW2JqWd CHDfDRLsYOwsQQPdGYI6REmsDTHvWOAlNF3HStJmUM CgUrG0PwRgXUXnSCJlvf6PKZUeVMBhQjekXSMjNQAxQUBjIIrmCGYdYLA9JJt2EGCvBHBiSA3JWlTqGR IpWmM9HSSxEAVuIPJgvw1JNXZxBFYeEJS5KSRbUFCfPWPsJOriGKYlJRW8IISvMWWiFCCqNK0LFyCrXS CjGwR1WMRpFTVuOEMiss7QXQQoDEBoPqfvPxGjXERz EYHqXKwtHHReBWW4SEH4UCCkFTPwAD3WDqFxGREyKbwbHQDrJVFzVXIhkf9IHSPbCDZiBCZ6KtOeMSXm UPKdDLilIDShVJR1TwJcRHZxJEWjLQ9HTyAdZKUjRyx1ItQqVXTbRIQpaj0BTJDaMNB8HRQaWvOcFEYe AIIoBKahANYcSJUbKiWdIPMbLHNpHI4DHlVbWZPrCa O9BnSdZERsIWZdio6TBENvCQI9ExGrTYLxEKSxLQVxXUeaRTAfUFJoWIR6ALKhNDEdZQ7ETxFrSJGiVc D8WZXmBRMuHIYzss1VDJFzJYZ3KrB1TETuXAVbQSSzMHcyRWYuUCDnRhm8QZRyUHSgEY4TTnUiMIOxIy HmFPhqHKGzFDZlsl3NOAFxPBE8GNU0ATChMGKoOBZs ESkjBEGzKGX6SyD2YZVfKBKcNW9BLcJqQZAkPeT5UGbnRXNxNZMbgf0VoEDkgBmsjp3AYUgMPh8PuNqt OGYoVKvzEw1jtRL6WZXrRLYYLg2JmuWiGONkKIODCShbYJMlIWq5TGZmVQi7IkNoZGUdFUwdKRTcXfWq JRIbKYUpTUy7BlW1TiT5TlAhOKYoAcCmGaQ7VFS8Mu ZwXEOnS8I9VLEjJFJ+MA7nWUs+Vu0Va6RwofZ0fnPsSJp2KaC6Kh8MQGZHB7FZZb== ID Date Data Source [id number] 04/11/2019 10:07:01 AM EST [facility] Name Value Range Interpretation Code Description Data Mellissa rce(s) Supporting Document(s) Discharge Summary [facility] ERHQKd5lRhKRLcYn71/MFZniHMIhr5BvHEdtMMe4HXhwEHUoG3PdZTD0bT7pRNQ9PFjSCkXyQwTfMJZ7 lbm [file] Y7TZNoMTQvF0RvRfohECN4GjJ+RS7uPPu+Oc9Vd7NuupE9tzEqFRdhPlD0Rl2SLORQR4OLSv== ID Date Data Source [id number] 04/10/2019 03:27:42 [facility] Name Value Range Interpretation Code Description Data Mellissa rce(s) Supporting Document(s) Consultation [facility] FGHDJx7nMzIYRkTz53/VCZesTNEmn9QvWKjyAJu4DEhqCQZeR9CdHLE2mI6xSFU4TMmIOdPkKrXiLUOq lbm [file] o= ID Date Data Source [id number] 04/09/2019 12:08:33 PM [facility] XR CHEST FRONTAL ONLY [id number] RESULTI nterpreted by:Cale Larose MDINDICATION: Pneumonia.TECHNIQUE: XR CHEST FRONTAL ONLY [id number], 04/09/2019 9:55 AM, upright.COMPARISON: 04/06/2019.FINDINGS: The chest [...] rce(s) Supporting Document(s) ID Date Data Source [id number] 04/09/2019 05:18:31 AM [facility] Name Value Range Interpretation Code Description Data Mellissa rce(s) Supporting Document(s) Leukocytes [#/volume] in Blood by Automated count 8.4 10*3/uL 4-10 [facility] [place] Erythrocytes [#/volume] in Blood by Automated count 3.94 10*6/uL 4.1- 5.[address] [facility] [place] Hemoglobin [Mass/volume] in Blood 10.7 g/dL 11.5-15.[address] [facility] [place] Hematocrit [Volume Fraction] of Blood by Automated count 32.3 % 3 6-[address] [facility] [place] Erythrocyte mean corpuscular volume [Entitic volume] by Auto mated count 81.8 fL 80-96 [facility] [place] Erythrocyte mean corpuscular hemoglobin [Entitic mass] by Automated count 27.2 pg 27-33 [facility] [place] Erythrocyte mean corpuscular hemoglobin concentration [Mass/volume] by Automated count 33.2 g/dL [facility].0-[facility] width [Ratio] by Automated count 16.4 % 11.5-14.[address] [facility] [place] Platelets [#/volume] in Blood by Automated count 288 10*3/uL 150-400 [facility] [place] Differential cell count method - Blood [facility] [place] Neutrophils/100 leukocytes in Blood by Automated count 57 % [facility] [place] Lymphocytes/100 leukocytes in Blood by Automated count 34 % [facility] [place] Monocytes/100 leukocytes in Blood by Automated count 7 % [facility] [place] Eosinophils/100 leukocytes in Blood by Automated count 1 % [facility] [place] Basophils/100 leukocytes in Blood by Automated count 1 % [facility] [place] Neutrophils [#/volume] in Blood by Automated count 4.72 10*3/uL 1.8-[address] [facility] [place] Lymphocytes [#/volume] in Blood by Automated count 2.85 10*3/uL 1.2-[address] [facility] [place] Monocytes [#/volume] in Blood by Automated count 0.61 10*3/uL 0-0.8 [facility] [place] Eosinophils [#/volume] in Blood by Automated count 0.11 10*3/uL 0-0.5 [facility] [place] Basophils [#/volume] in Blood by Automated count 0.08 10*3/uL 0-0.2 [facility] [place] Nucleated erythrocytes/100 leukocytes [Ratio] in Blood by Automated count 0 /100{WBCs} 0-0 [facility] [place] ID Date Data Source [id number] 04/09/2019 05:36:33 AM [facility] Name Value Range Interpretation Code Description Data Mellissa rce(s) Supporting Document(s) Bicarbonate [Moles/volume] in Serum 27 mmol/L 22-29 [facility] [place] Chloride [Moles/volume] in Serum or Plasma 99 mmol/L 98-107 [facility] [place] Creatinine [Mass/volume] in Serum or Plasma 0.48 mg/dL 0.50-0.[address] [facility] [place] Glucose [Mass/volume] in Serum or Plasma 88 mg/dL 70-140 [facility] [place] Potassium [Moles/volume] in Serum or Plasma 3.7 mmol/L 3.4-5.1 [facility] [place] Sodium [Moles/volume] in Serum or Plasma 137 mmol/L 136-145 [facility] [place] Urea nitrogen [Mass/volume] in Serum or Plasma 7 mg/dL 6-20 [facility] [place] Anion gap 3 in Serum or Plasma 11 mmol/L 8-15 [facility] [place] Osmolality of Serum or Plasma by calculation 281 mosm/kg 275-300 [facility] [place] Creatinine/Urea nitrogen [Mass Ratio] in Serum or Plasma 15 [facility] [place] Calcium [Mass/volume] in Serum or Plasma 8.9 mg/dL 8.6-10.0 [facility] [place] Glomerular filtration rate/1.73 sq M pre dicted among non-blacks [Volume Rate/Area] in Serum or Plasma by Creatinine-based formula (MDRD) >[address] [facility] [place] Glomerular filtration rate/1.73 sq M pre dicted among blacks [Volume Rate/Area] in Serum or Plasma by Creatinine-based formula (MDRD) >60 [facility] [place] ID Date Data Source [id number] 04/09/2019 05:36:33 AM [facility] Name Value Range Interpretation Code Description Data Mellissa rce(s) Supporting Document(s) Magnesium [Mass/volume] in Serum or Plasma 1.8 mg/dL 1.6-2.6 [facility] [place] ID Date Data Source [id number] 04/09/2019 05:36:33 AM [facility] Value Range Interpretation Code Description Data Mellissa rce(s) Supporting Document(s) Phosphate [Mass/volume] in Serum or Plasma 4.6 mg/dL 2.5-4.[address] [facility] [place] ID Date Data Source [id number] 04/08/2019 06:45:55 AM [facility] Name Value Range Interpretation Code Description Data Mellissa rce(s) Supporting Document(s) Leukocytes [#/volume] in Blood by Automated count 10.5 10*3/uL 4-[address] [facility] [place] Erythrocytes [#/volume] in Blood by Automated count 3.69 10*6/uL 4.1- 5.[address] [facility] [place] Hemoglobin [Mass/volume] in Blood 10.1 g/dL 11.5-15.[address] [facility] [place] Hematocrit [Volume Fraction] of Blood by Automated count 30.2 % 3 6-[address] [facility] [place] Erythrocyte mean corpuscular volume [Entitic volume] by Auto mated count 81.9 fL 80-96 [facility] [place] Erythrocyte mean corpuscular hemoglobin [Entitic mass] by Automated count 27.3 pg 27-33 [facility] [place] Erythrocyte mean corpuscular hemoglobin concentration [Mass/volume] by Automated count 33.4 g/dL 32.0-36.0 [facility]th[facility] distribution width [Ratio] by Automated count 16.6 % 11.5-14.[address] [facility] [place] Platelets [#/volume] in Blood by Automated count 242 10*3/uL 150-400 [facility] [place] Differential cell count method - Blood [facility] [place] Neutrophils/100 leukocytes in Blood by Automated count 72 % [facility] [place] Lymphocytes/100 leukocytes in Blood by Automated count 21 % [facility] [place] Monocytes/100 leukocytes in Blood by Automated count 5 % [facility] [place] Eosinophils/100 leukocytes in Blood by Automated count 1 % [facility] [place] Basophils/100 leukocytes in Blood by Automated count 1 % [facility] [place] Neutrophils [#/volume] in Blood by Automated count 7.61 10*3/uL 1.8-[address] [facility] [place] Lymphocytes [#/volume] in Blood by Automated count 2.21 10*3/uL 1.2-[address] [facility] [place] Monocytes [#/volume] in Blood by Automated count 0.49 10*3/uL 0-0.8 [facility] [place] Eosinophils [#/volume] in Blood by Automated count 0.10 10*3/uL 0-0.5 [facility] [place] Basophils [#/volume] in Blood by Automated count 0.05 10*3/uL 0-0.2 [facility] [place] Nucleated erythrocytes/100 leukocytes [Ratio] in Blood by Automated count 0 /100{WBCs} 0-0 [facility] [place] ID Date Data Source [id number] 04/08/2019 07:06:14 AM [facility] Name Value Range Interpretation Code Description Data Mellissa rce(s) Supporting Document(s) Bicarbonate [Moles/volume] in Serum 22 mmol/L 22-29 [facility] [place] Chloride [Moles/volume] in Serum or Plasma 99 mmol/L 98-107 [facility] [place] Creatinine [Mass/volume] in Serum or Plasma 0.38 mg/dL 0.50-0.[address] [facility] [place] Glucose [Mass/volume] in Serum or Plasma 88 mg/dL 70-140 [facility] [place] Potassium [Moles/volume] in Serum or Plasma 3.7 mmol/L 3.4-5.1 [facility] [place] Sodium [Moles/volume] in Serum or Plasma 133 mmol/L 136-[address] [facility] [place] Urea nitrogen [Mass/volume] in Serum or Plasma 6 mg/dL 6-20 [facility] [place] Anion gap 3 in Serum or Plasma 12 mmol/L 8-15 [facility] [place] Osmolality of Serum or Plasma by calculation 273 mosm/kg 275-[address] [facility] [place] Creatinine/Urea nitrogen [Mass Ratio] in Serum or Plasma 16 [facility] [place] Calcium [Mass/volume] in Serum or Plasma 8.4 mg/dL 8.6-10.[address] [facility] [place] Glomerular filtration rate/1.73 sq M pre dicted among non-blacks [Volume Rate/Area] in Serum or Plasma by Creatinine-based formula (MDRD) >[address] [facility] [place] Glomerular filtration rate/1.73 sq M pre dicted among blacks [Volume Rate/Area] in Serum or Plasma by Creatinine-based formula (MDRD) >60 [facility] [place] ID Date Data Source [id number] 04/08/2019 07:06:14 AM [facility] Value Range Interpretation Code Description Data Mellissa rce(s) Supporting Document(s) Magnesium [Mass/volume] in Serum or Plasma 1.7 mg/dL 1.6-2.6 [facility] [place] ID Date Data Source [id number] 04/08/2019 07:06:14 AM [facility] Name Value Range Interpretation Code Description Data Mellissa rce(s) Supporting Document(s) Phosphate [Mass/volume] in Serum or Plasma 3.6 mg/dL 2.5-4.5 [facility] [place] ID Date Data Source [id number] 04/07/2019 01:59:57 PM EST [facility] Name Value Range Interpretation Code Description Data Mellissa rce(s) Supporting Document(s) History and Physical [facility] ENEPGx5vGfPMHjQj29/VYEjxZCHmk4BuEMdrMUn9TOjuIWKtM1DcFXG4cC9hGUM9HIkHHjCyHZcvWcEu lbm [file] Andrés+AAoM2Sq2boSp7dVfzp9NzGP/GWNoexgBO3clDb [file] ICAgICAgICAgICAgICAgICAgICAgICAgICAgICAgICAgICAgICAgICAgICAgICAgICAgICAgICAgICAg CVYaRMNwVWMfFJWbXJUsRG4WUFBwFYPnYNSdVWEpFIWxCVViSRUiABIyPGDmCDIlJVTeBWIhIRRlBJXj ICAgICAgICAgICAgICAgICAgICAgICAgICAgICAgIC NqGLGbASXuQCPaBISeAMKxTXTzBGTsWRPpCQ5ZWARgOUXjLSDmRRZnAXKvAALsEJRwQQSpGKBkYZLaLR AgICAgICAgICAgICAgICAgICAgICAgICAgICAgICAgICAgICAgICAgICAgICAgICAgICAgICAgICAgIC RlWGKiUEGnEO0PEACeUOWqKPIdIZDgPILzOODdGLCh ICAgICAgICAgICAgICAgICAgICAgICAgICAgICAgICAgICAgICAgICAgICAgICAgICAgICAgICAgICAg ZKGnVZFcJNFlBQJyEDShZUAqMK6NRRBxGWJsANMvJYJrJVOtNERjCHYmGDQcLGExELSfCZFaCSStKKZu ICAgICAgICAgICAgICAgICAgICAgICAgICAgICAgIC SuIFSbVJMhARIlNXPxLRZzSPEgOYHaIYQzRXCuEE8ZHMQcJWIsFQSsKYOgIOVzESPeWOUgFSQzUZKuQV AgICAgICAgICAgICAgICAgICAgICAgICAgICAgICAgICAgICAgICAgICAgICAgICAgICAgICAgICAgIC UrFGJnXPIaZOThRT4TPFJzGLZuQGBmHTGsBHVoZFGh ICAgICAgICAgICAgICAgICAgICAgICAgICAgICAgICAgICAgICAgICAgICAgICAgICAgICAgICAgICAg FLHdOMZbMFCjVOFuZTWwOAPcCCGwRW8LFMGzLMCuUUMkRLZyIFPbJFNvHOTkVTLmOEFeROCoXGJgBLCn ICAgICAgICAgICAgICAgICAgICAgICAgICAgICAgIC DaYVNhKOJnCUFdESSbDNOsOXTbZMToXBUrVBQtINRdLC9GRAUhFUTbEPExQKQwMSCxUBNeZRSeBQCsGU AgICAgICAgICAgICAgICAgICAgICAgICAgICAgICAgICAgICAgICAgICAgICAgICAgICAgICAgICAgIC HdTUKvUOWaAMTxQCNsEA6ZBAHnBQFzSOQcQLRaXMRk ICAgICAgICAgICAgICAgICAgICAgICAgICAgICAgICAgICAgICAgICAgICAgICAgICAgICAgICAgICAg ELAbXGIiWIPsKFSxVCGlGWWoPAMqXDMjRQ8CNY86pGTbg5O6UPYkMD9terb/Ut3URFktssJdvXPuMC1C OeRvQX0ipl4ZVfKiSW9hnb9VVRxHJwAvN3X9vTPlVD CnYIXPCoNxY80aUQbuHo98CMacYADfBoEdZWy3An0VMdAnH6txBLKzAgI1ZBSjYjS5EEIqYyE9DRDdDw YpTZWgXDGmCHIyXYUVIU9TWpWbV0IizB22OMHECv1+QVsmqhSfHcxZFjWaAWPzf1DcCNk9HF0LWOMhOf eoc7WcXbAfRGYZTSmhAL1BHCU5KME3SMIuPt3MHYBo V673ovMpOV3VHy5DErNfIW5ayi9WHdYnGPNuZlgKHcu5HQfkCN1OsZOjGVxTTfEuBpesEGWsp22uUMpz i8yoNIIRHWZahCZhLg0mXA3yXUQ1XBB4FrDcPPLIRJ2VLLEtMEPuaBYkCUMnSHAWBD5UKMzbFQA0ERBp dqLqkZRaGRnyZE1IIXBmisSoXpPyALANUCd+Pg0KZW 7nt8UfOVukFJChTI1ooi6JDRcVWnFzU1R3qYKoV3G2HMwbSb0XMZScOBQcAvDkFPMSYFmsLO3QQI7sld B0OK6EzAIvYUXgDQRrvYTnQMo7T21ddHCtJOoeJJ7CNMG+Isiah+Zk2HRPDzIOGgDPNhPxZaDXKPKaUkQ0 CrP9PFy6BsZ3YzOF93lYnnjpJnSBctWE6CSH9kSNGx EPEAUK1YzIWowO0rqhSdYbCaLSXLUcNvA75jdFDhCILmBIZbFKTcDt3YIDFjB7ZblwNxfUgjkyPzSHFq IFPYOK4EINjuouMdvHZnkUroUU45uKnxDW2OKt9JWrPkGD3wsq8HiZRdDy6TALLiXf5DCCXrODWuCXXx ZCH2PBFzBmIvPMllEZRqWGAhKRA4OAGiDDVlOK0GYb OmCXVqAuM3OyYnAWNlWJVfpu1DPQNuKURdZOT3YfAbBEBkKLLuHScsIJTcRJLhMRI9BRFcYKKjEJ4EYd NoIJMiVHM7XDJuXYGeDQYgqb9DIXYdEAFfXbQ5FKIaDQHsJRHjUGlvAKRtNBI9PQRrKSOrPZAePJ6PMc LxXTZcCBdwIcUnVVHhNCTdyq4RTWRpUMLqFZe4WjEs PGMlYYFwTVwtTPYnOXZqJQHcCFMgBBDlGJ5JUkYsIWVxRPZlFitjXFVsVNWgnp0ZZVAlQSEtKhE8BSWg UMUuWZQpGLagIXVqTDB3ArIdZUZjINYePC5PTbCfOHDoTYN0RmvaJZSzVIZujg1LIGMhAUDyJskuHOVx ZWVxSKLaTBflJFLsQRT3YNS2ISXzHCMaRA4AFqGzMR TjOGvvVOyeKUZnFDRcll7XRVHsWDArKDZ8RfQmVPIqVLCyEJzeAFSnMSP1SmT3IXOfTCRdJS6KZvLmNA CjSVi1CBqmBLLvSOJxyi3KHPJyYHOaKUIiRdYyDOZwJVQvKUxkRIMxLUW2NuI3YURjOIMwAO5WKyFqXF LqCXo2OMfoOOGmEZSacy4BGYJoYCAcATU8PcKeQZDz RRBjHVaaQRJvHDCtYdVxGRRaEPGgSN0RVqDeGIZdFwW8JQpaOEThNBEmon2TKJKvRTZpLhM5UETjIKKx PYPwWEyiSLHzODVtWFq0KEGhOVExTO4UEsHeHXEdSgKmPygzFLPwGKTgip0YNXMgRYQjLmXsMxDqHBWl DVYmDNgjMZTlHTDtHTP2XCVcETCeMU2LFhSaVRQkOy F7KzgbUDQuKKKjzr6HQDWcTJZkOEWhDMTuTQDzHNRnGFytNYQsADB0RUuqWMLrAEOiMG8QHkFiFRQeLi B3JMaaNCQjCWImqp8TrBBttMwtxa0RAQnXJj8IpCegNDD8MWbmWs0kyQJhEPKmGZHLKl0LseRbBFGxZM GQSIhsOLAgLDH0JDFtURRgXEs4OgrtTvKnJVHcUqKn BTooSUStSIW8GfH7OsYwMYNrVKR1KmhnBWIaMAE3AZMxTaR4VID0QnW6AoG+JF4lOFz+Kw1Tc3QzfgR4 jpUvWUkdXFl5Pr7SYAHVS7RONq== ID Date Data Source [id number] 04/07/2019 07:39:01 AM [facility] Name Value Range Interpretation Code Description Data Mellissa e(s) Supporting Document(s) Leukocytes [#/volume] in Blood by Automated count 11.7 10*3/uL 4-[address] [facility] [place] Erythrocytes [#/volume] in Blood by Automated count 4.12 10*6/uL 4.1- 5.3 [facility] [place] Hemoglobin [Mass/volume] in Blood 11.1 g/dL 11.5-15.[address] [facility] [place] Hematocrit [Volume Fraction] of Blood by Automated count 34.0 % 3 6-[address] [facility] [place] Erythrocyte mean corpuscular volume [Entitic volume] by Auto mated count 82.5 fL 80-96 [facility] [place] Erythrocyte mean corpuscular hemoglobin [Entitic mass] by Automated count 26.8 pg 27-[address] [facility] [place] Erythrocyte mean corpuscular hemoglobin concentration [Mass/volume] by Automated count 32.5 g/dL [facility].0-[facility] width [Ratio] by Automated count 16.9 % 11.5-14.[address] [facility] [place] Platelets [#/volume] in Blood by Automated count 291 10*3/uL 150-400 [facility] [place] Differential cell count method - Blood [facility] [place] Neutrophils/100 leukocytes in Blood by Automated count 89 % [facility] [place] Lymphocytes/100 leukocytes in Blood by Automated count 8 % [facility] [place] Monocytes/100 leukocytes in Blood by Automated count 3 % [facility] [place] Eosinophils/100 leukocytes in Blood by Automated count 0 % [facility] [place] Basophils/100 leukocytes in Blood by Automated count 0 % [facility] [place] Neutrophils [#/volume] in Blood by Automated count 10.35 10*3/uL 1.8- 7.[address] [facility] [place] Lymphocytes [#/volume] in Blood by Automated count 0.95 10*3/uL 1.2-[address] [facility] [place] Monocytes [#/volume] in Blood by Automated count 0.34 10*3/uL 0-0.8 [facility] [place] Eosinophils [#/volume] in Blood by Automated count 0.00 10*3/uL 0-0.5 [facility] [place] Basophils [#/volume] in Blood by Automated count 0.04 10*3/uL 0-0.2 [facility] [place] Nucleated erythrocytes/100 leukocytes [Ratio] in Blood by Automated count 0 /100{WBCs} 0-0 [facility] [place] ID Date Data Source [id number] 04/07/2019 07:52:23 AM [facility] Name Value Range Interpretation Code Description Data Mellissa rce(s) Supporting Document(s) Prothrombin time (PT) 14.8 s 12.5-14.9 [facility] [place] INR in Platelet poor plasma by Coagulation assay 1.13 [facility] [place] ID Date Data Source [id number] 04/07/2019 07:55:04 AM [facility] Name Value Range Interpretation Code Description Data Mellissa rce(s) Supporting Document(s) Bicarbonate [Moles/volume] in Serum 21 mmol/L 22-[address] [facility] [place] Chloride [Moles/volume] in Serum or Plasma 102 mmol/L 98-107 [facility] [place] Creatinine [Mass/volume] in Serum or Plasma 0.40 mg/dL 0.50-0.[address] [facility] [place] Glucose [Mass/volume] in Serum or Plasma 70 mg/dL 70-140 [facility] [place] Potassium [Moles/volume] in Serum or Plasma 4.4 mmol/L 3.4-5.1 [facility] [place] Sodium [Moles/volume] in Serum or Plasma 137 mmol/L 136-145 [facility] [place] Urea nitrogen [Mass/volume] in Serum or Plasma 4 mg/dL 6-[address] [facility] [place] Anion gap 3 in Serum or Plasma 15 mmol/L 8-15 [facility] [place] Osmolality of Serum or Plasma by calculation 280 mosm/kg 275-300 [facility] [place] Creatinine/Urea nitrogen [Mass Ratio] in Serum or Plasma 10 [facility] [place] Calcium [Mass/volume] in Serum or Plasma 8.2 mg/dL 8.6-10.0 [facility] Glomerular filtration rate/1.73 sq M pre dicted among non-blacks [Volume Rate/Area] in Serum or Plasma by Creatinine-based formula (MDRD) >[address] [facility] [place] Glomerular filtration rate/1.73 sq M pre dicted among blacks [Volume Rate/Area] in Serum or Plasma by Creatinine-based formula (MDRD) >60 [facility] [place] ID Date Data Source [id number] 04/07/2019 07:55:04 AM [facility] Name Value Range Interpretation Code Description Data Mellissa rce(s) Supporting Document(s) Magnesium [Mass/volume] in Serum or Plasma 2.0 mg/dL 1.6-2.6 [facility] [place] ID Date Data Source [id number] 04/07/2019 07:55:04 AM [facility] Value Range Interpretation Code Description Data Mellissa rce(s) Supporting Document(s) Phosphate [Mass/volume] in Serum or Plasma 3.2 mg/dL 2.5-4.5 [facility] [place] ID Date Data Source [id number] 04/10/2019 08:06:03 PM [facility] Value Range Interpretation Code Description Data Mellissa rce(s) Supporting Document(s) Galactomannan Ag [Presence] in Serum or Plasma by Immunoassa y 0.05 Index 0.00-0.49 [facility] [place] (NOTE)Performed At: [address] [id number] Benoit MD Ph:[phone] At: [facility] [id number] [place], [place] [id number] Osorio MD Ph:[phone] ID Date Data Source [id number] 06/01/2019 07:53:17 AM [facility] XXX-Imp : Acid fast Stn XXX : No Acid fast bacilli seen on Fluorochrome stain.Microorganism XXX Cult : No growth (qualifier value) Name Value Range Interpretation Code Description Data Mellissa rce(s) Supporting Document(s) ID Date Data Source [id number] 04/10/2019 10:32:12 AM [facility] XXX-Imp : Microorganism XXX Cult : 2Candida albicans Name Value Range Interpretation Code Description Data Mellissa rce(s) Supporting Document(s) ID Date Data Source [id number] 05/06/2019 07:40:37 AM [facility] XXX-Imp : Microorganism XXX Cult : No virus isolated Name Value Range Interpretation Code Description Data Mellissa rce(s) Supporting Document(s) ID Date Data Source [id number] 04/13/2019 11:17:14 AM [facility] XXX-Imp : Microorganism XXX Cult : No Legionella pneumophila isolated Name Value Range Interpretation Code Description Data Mellissa rce(s) Supporting Document(s) ID Date Data Source [id number] 04/10/2019 07:30:55 AM [facility] XXX-Imp : Microorganism XXX Cult : Mycoplasma pneumoniae by PCR: Negative. This test was developed and its performance characteristics determined by [facility]. It has not been cleared or approved by the Food and Drug Administration. The FDA has determined that such clearance or approval is not necessary.[facility]formed by [facility], [address] [place] [id number] Name Value Range Interpretation Code Description Data Mellissa rce(s) Supporting Document(s) ID Date Data Source [id number] 04/08/2019 11:17:41 AM [facility] XXX-Imp : Gram Stn XXX : No WBC's or organisms seen.Microorganism XXX Cult : Normal serenity Name Value Range Interpretation Code Description Data Mellissa rce(s) Supporting Document(s) ID Date Data Source [id number] 04/07/2019 11:03:29 AM [facility] XXX-Imp : P jiroveci Ag Spt Ql IF : Negative for Pneumocystis jiroveci Name Value Range Interpretation Code Description Data Mellissa rce(s) Supporting Document(s) ID Date Data Source [id number] 06/01/2019 07:53:17 AM [facility] XXX-Imp : Acid fast Stn XXX : No Acid fast bacilli seen on Fluorochrome stain.Microorganism XXX Cult : No growth (qualifier value) Name Value Range Interpretation Code Description Data Mellissa rce(s) Supporting Document(s) ID Date Data Source [id number] 04/10/2019 11:30:30 AM [facility] XXX-Imp : Microorganism XXX Cult : One (1) colony ofCandida albicans Name Value Range Interpretation Code Description Data Mellissa rce(s) Supporting Document(s) ID Date Data Source [id number] 05/06/2019 07:41:33 AM [facility] XXX-Imp : Microorganism XXX Cult : No virus isolated Name Value Range Interpretation Code Description Data Mellissa rce(s) Supporting Document(s) ID Date Data Source [id number] 04/13/2019 11:17:14 AM [facility] XXX-Imp : Microorganism XXX Cult : No Legionella pneumophila isolated Name Value Range Interpretation Code Description Data Mellissa rce(s) Supporting Document(s) ID Date Data Source [id number] 04/10/2019 07:31:13 AM [facility] XXX-Imp : Microorganism XXX Cult : Mycoplasma pneumoniae by PCR: Negative. This test was developed and its performance characteristics determined by [facility]. It has not been cleared or approved by the Food and Drug Administration. The FDA has determined that such clearance or approval is not necessary.Performed by [facility], [address] [place] [id number] Name Value Range Interpretation Code Description Data Mellissa rce(s) Supporting Document(s) ID Date Data Source [id number] 04/08/2019 07:46:32 AM [facility] XXX-Imp : Microorganism XXX Cult : [place] count <=10,000 cfu/mlNormal serenity Name Value Range Interpretation Code Description Data Mellissa rce(s) Supporting Document(s) ID Date Data Source [id number] 04/07/2019 11:03:58 AM [facility] Service Cmnt XXX-Imp : P jiroveci Ag Spt Ql IF : Negative for Pneumocystis jiroveci Name Value Range Interpretation Code Description Data Mellissa rce(s) Supporting Document(s) ID Date Data Source [id number] 04/06/2019 06:46:59 PM [facility] Value Range Interpretation Code Description Data Mellissa rce(s) Supporting Document(s) Glucose [Mass/volume] in Capillary blood by Glucometer 93 mg/dL 70- 140 [facility] [place] ID Date Data Source [id number] 04/06/2019 04:42:38 PM [facility] Name Value Range Interpretation Code Description Data Mellissa rce(s) Supporting Document(s) pH of Arterial blood 7.38 7.38-7.44 [facility] Carbon dioxide [Partial pressure] in Arterial blood 39 mm[Hg] 35-40 [facility] [place] Oxygen [Partial pressure] in Arterial blood 124 mmHg 95-[address] [facility] [place] Oxygen saturation in Arterial blood 99 % 94-100 [facility] [place] Base excess in Arterial blood by calculation [facility] [place] Carbon dioxide, total [Moles/volume] in Arterial blood 24 mmol/L [facility] [place] Oxygen/Inspired gas setting [Volume Fraction] Ventilator [facility] [place] ID Date Data Source [id number] 04/06/2019 03:19:08 PM [facility] Value Range Interpretation Code Description Data Mellissa rce(s) Supporting Document(s) History and Physical [facility] XFLPCz7gNiZWMeEv67/KUIerOTWfc2FzYAafGNo5VKgfRCDkX3ReOUK0sQ5fQET5FWjRHiBzVAykHzFf lbm [file] ID Date Data Source [id number] 04/06/2019 02:23:29 PM [facility] CT ANGIOGRAPHY THORAX [id number] RESULTI nterpreted by:Shree Shafer MDINDICATION: Rule out [...] There are multiple enlarged mediastinal nodes. A inventory representative AP window node measures 1.3 cm. [...] rce(s) Supporting Document(s) ID Date Data Source [id number] 04/13/2019 11:17:14 AM [facility] XXX-Imp : Microorganism XXX Cult : No Legionella pneumophila isolated Name Value Range Interpretation Code Description Data Mellissa rce(s) Supporting Document(s) ID Date Data Source [id number] 04/08/2019 11:17:41 AM [facility] XXX-Imp : Gram Stn XXX : 1W BC'S Seen.1FloraMicroorganism XXX Cult : Normal serenity Name Value Range Interpretation Code Description Data Mellissa rce(s) Supporting Document(s) ID Date Data Source [id number] 04/06/2019 01:09:00 PM [facility] XXX-Imp : Microorganism XXX Cult : Urine NEGATIVE for L. pneumophila serogroup 1 antigen by immunochromatographic assay. This test does not detect infections due to other L. pneumophila serogroups or to other Legionella species. Name Value Range Interpretation Code Description Data Mellissa rce(s) Supporting Document(s) ID Date Data Source [id number] 04/06/2019 12:09:41 PM [facility] Name Value Range Interpretation Code Description Data Mellissa rce(s) Supporting Document(s) [facility] QIGPRz4vXxNVUcFea1QmYhSwIZQwVA9xdvf7F4Q3bQVzT7AffZJkw8jgU8UfW1HwGCAhGMXTGB8EnRUk jb2 [file] uerAR1/Milk Deliverer+X2bS/SV/w7QtjbNH/WCR7Iqg4IJ+U88K OvWk61/vjr+SfHP/6+07Y//mfkMi437oGcDGQAy9/q0tFX3+7XlvLd7QU9+8/8aFOm3jr+muuYn/v7N7 qd7c/9bTmN+3N/dnyeNWat495sv80LaA5+PZpA/vT7m5F5+ybdXF0O2HNiJwXD52d/U7Fj+XcmdujFh+ +rn31f/or8s7sfrQC5uudXgfaoyphi9EYdAzjh7/at o9AYnthlULjPuFVoLE/9gxEsRbmtEg7YgU+n1LFZudxAgLMQyP//5OAljbm9n1pWcF2h+jfKr E8lpHanmPBf2Cnfm4Ixlx3Qkm7/CZx2g0zmin8/y9pmJT5464kwnnFz08ROpSs9bd4t/N1ruGyicCY/P A0eP4v2SnU30/zOh+wlmLEdRR9S2uKkar+P4A+UD5Y Fy+HwXa83bXbmoPW7g25c96eu6D374wZSzF2muu5E8pIsB60Tn7yvu/4dOQ9394+yVQB35UA0dW4GNvG +FY6EasKf4B+c9/mqKq/JXmq2q/ZUuP1cO7M0m0Kk9dqG74ET2J8dF+gY20LAM+Su201KMmxUVZ05zyO 9/Vfk83Hg0vXuf4M+8six59iwr+9OslAI4Pt33ewuS Db8//hMooE36XI+uOzOi7/a4v+t5gEc4CKlHtoT2MW7ARdG0A9c79a1fWa46bp1a8vy3Z+Xn/nq17jzS btLI4wFn3xpB7y/52Q35iFmVSrW+OX9pY5MVnI7kWeS/pXLUZ+WzLkGPZynprhxUy93Yx3V+UnuUvnq3 Be4SphX38G8A7AhJ/zVRocMEW733/goabvqaEc94j3 b8Vf4e/ZSjM67nl0p+Na3p7Aj2v5vWcqa5z/YJ2oaGj8eWXaDfo9edQ+82yjEeKX+V2+vdL3wzoqBkNS xa6J8X+by442AeAtey9UaTP+Te5i3DW2Oi/ntw6iMz83v/0wq0a4EiGW4j+Mc91wNyHobuzY+U3+eFDn 9Nkf376jdmbg/v80J/UQI6W2sne6/7c+4ucrxAL0aI opGktvQX1gavagZyXA/W0Q889p7+T7Ecg9y4kJzQJcVC1czftdKyp6r5uLbj63Eos+82pyf8Qehoha4b yCXkU5FnwSVpa4gx+8XlK3qs0YGfHLy/fp8Hu9/n/d11L8u71yN05yf6d/kkD2dqs/f5sSt/1VV+8htd 5Se/hWHWR06nnnuT9h9T/kqTCZW/8lAL1m0876T9F8 0QUU2CpkoUl7kbs145s3BpWe8GRvR3345us/FXvih/JR+Gs5Yquu6nEiuhsGGd6fz38nplx/vB3nF/+3 3e7/3mN3q/60Uk187Z4/d9Ed6M3R7cBxCu3CKo69je3G67dm80cujABJ/z/aP1dk119/1gx/vBrvyVtp W/pcghdLv0w9V7ni2JJ/fhKG+00qi3ED1zuUbAlhBf pxY05E3nfoWrn7G8XnGq7droPfyr60FT9N4o1vqN2FE0gl26wCIl/WRoWojp3f1yhbOXW680yii8BL0s e9zt/jts1FHlRcu3s2/m4zl7+NbzzF/c56wZui0ezRCv31++eqchf/ztpknEJ7/x/tFt374VzFjN89Us xoZIVIRY4KpzSGU+6JanpT6ua3Wn0sHAY96K/tzf9z zob3FSIV8eI07m5rrht2T/2gGyR352apabs0Za+2OZH96V7CqRO47ouuW5en0C1AOr8utrnCAfittn7J 9d+sq0vb/6s8+rJ/u6+cm+rt7oC+9P2bn1Uh+8MB6t+71KX+hkX5c1wh65XrF//cm6+fYzD/rhj0gsoY U44Gtzo7xjdVhv9y3/3/pGpaI9eqsE0ipNz5qn419G Rxv+bvi74e+Gvxv+csk76g0cNN/xd68b89u8QE8ueoWehmC8Sk/8hswH7zp2ReINM/mrgfeDA/mr8XQc Z+D4A+GC6wY5JTrH+ZP0UeqU+b2/w+79HQZ/Df4a/IW+GtBXA/teYPm43s4V2fap9wk+eyB/NSxQHii/ mfRP7LDGSlnbBviZrZ7Zwc0Ckz67exB3/jkou30Oqp gw4Z7fA/nN5wy/gsdWpd3b+B1/h9/xd/wXtsO7WT8XOsU+SK5NtzE++7zC2rYfxB/K9f1G0/o3268z82 /Z79c2Ydzw1pUD7va+cio08V2rYvnWkWk5ov1WQ3lUq3/0aT86p9V+Ft4hdpRCq36fP5xl9PGoQV/+2n yS8xbQpM6I5A6U5d3aq7he1X2+Q6vhTM21jd7hFr0d x/5uvL6m45vz76Ea4IJavQldar8g9n69d7w43Dz4dqHMs+3Ca7dO4+/m2Up8cGKq/eAYgfJAOdrvmLie txPigImqA58yRsYp3Cft7cKMjL3s+6uR31/lNsobfn+/VxmB/byfsfsmCC1PFjpDmT61NsA+gLA69UQ3 wRH3+8hB89NH2wmE4z3VdU2jzI494B3mIWp5Tph7Df 1f3Kk4FMrWmlL9TR6bC4gPoxK+zoXyjfL7/jwku46D48D6rnkT2cx0eQfTR3Xy/i7c33W/cfmRA8ivMa h/pa+pYij8BwMwzQ2W5+/C+Fz7SvKpEyQSfL6d++Y3xr7P+6NxBYr92NuQ0boNm4gGvHk3/O0qxheQPd hHfVb+PyJq932T9HwNwJ879H3usB6WxI8DsN5DmD6F eX8C8QjQqSF1PihGV8X8s5J0s/EMlAfKA+HE4OMtB+UL5Rvl+8KltnQTF1QaQ1hnzoo05P2C5/Z48wyh 76+a5sse/dxVfvRzV/jEn1rF8V9FpnA44WmaGdza4qtnbsvEgqTe65pH0/cqoe+xrcrsO90j+6t3G+WG ckP5/P5h4S6TnhDpD+zl9X4Ejasdk/NSfmFzHg34gq oLks1Sjt/7Db/1Ofx+Txh+9WT4HY/C7/js2Ca3NtfwiZ6AsbPV7J7+W4vigjMeL0Nh/jnabb/RUJ/bfV 6Idr9/DnzfHu1+Xxf4/irw/VA5xk4c/P4+Dwa+z5369soS6/dm0e/7KtBV9MHfL9fvIDf8YVtdl4n//f ZX0e/4G/0Ti7AMtfu73JedO/r+SvWtn+6IkzpuS3K3 PjnRdX/sXGlP28jenu6yYBiq+zBinlk74O/RPo3w2x0+j2Q4Z7nFOqW/9X6wf+wcAl5vQqfrZ4RmijVb FhbWS0y7IqeJJ7itCeg/qAhspz76iiDPDs/18tcyU31yGVk22vY/H9MU2c/1jMddfNDbB1++spwB+rm/ mn1wsmKfCh8X8ceo25oR/Jd59SVx+NNKu36Mn87+Cl 6I7RaltgH2OhSc0D5IP6AE/K66p0l0diK60oe0eWNJF4p1+34/0y7RP7Leh3Dnz5Q6l60O9EoTL4/ExH g07/DiyOa3ZsT7wiV+J1Sjztq89/gbE+MDlCbsiCyz1cDm2qaTTf/bC+Vov3Oj/OqNwPdXsW4+Npah3F B+9nbjUSnaCA5y5vjEq3ASigsP8c2OcD+LX8IvfI+U a76xPS839Xa+tb932p28rn61c6tBmozC65sK06tLiefcJkzcxe1mW0oD8DWzIb/Crc2N8VmqzqNtz+dz 7+50RfNdvi9tT4/N5+rn+Vx/p/TVVHl/sI3y+qg33F5v3y6azJuQfyeGM+3P22ABxrE+BG5fRbZn+98p fZXb9/l32n3/O+2+/84361pSh+1RdiMU580Si/rod1 [file] community health program representative/ehcG2Jeo19oQHkPQaXrhPLvXJEYLnYf9J/cTzFnM/1AZGmJDwG4Z3VnV+Nw6adC3qSh55f6xKJh2A [file] CxMHubEmEp5Myq2Gh+I7A8FRyx7wXOjLJpMjB2OQKtumeQrp5LT0LiRE1oiUUVOoaq8qaf4u4Xyui/toy packer [file] [id number] ID Date Data Source [id number] 04/06/2019 01:42:04 PM [facility] XXX-Imp : Microorganism XXX Cult : [...] rce(s) Supporting Document(s) ID Date Data Source [id number] 04/07/2019 01:17:20 PM [facility] XXX-Imp : Microorganism XXX Cult : NO Methicillin resistant Staphylococcus aureus isolated Name Value Range Interpretation Code Description Data Mellissa rce(s) Supporting Document(s) ID Date Data Source [id number] 04/06/2019 12:56:22 PM [facility] Name Value Range Interpretation Code Description Data Mellissa rce(s) Supporting Document(s) Natriuretic peptide.B prohormone N-Terminal [Mass/volu me] in Serum or Plasma 792 pg/mL <[address] [facility] [place] ID Date Data Source [id number] 04/06/2019 12:56:22 PM [facility] Name Value Range Interpretation Code Description Data Mellissa rce(s) Supporting Document(s) Troponin T.cardiac [Mass/volume] in Serum or Plasma <0.01 [facility] [place] ID Date Data Source [id number] 04/06/2019 12:52:56 PM [facility] Name Value Range Interpretation Code Description Data Mellissa rce(s) Supporting Document(s) HIV 1+2 Ab+HIV1 p24 Ag [Presence] in Serum or Plasma by Immu noassay Non Reactive [facility] [place] Negative for HIV-1 p24 antigenand HIV-1/ HIV-2 antibodies. Nolaboratory evidence of HIVinfection. ID Date Data Source [id number] 04/06/2019 12:28:21 PM [facility] Name Value Range Interpretation Code Description Data Mellissa rce(s) Supporting Document(s) Lactate [Moles/volume] in Serum or Plasma 1.2 mmol/l 0.5-2.2 [facility] [place] ID Date Data Source [id number] 04/11/2019 12:23:48 PM [facility] Service Cmnt XXX-Imp : L HANDMicroorgani sm XXX Cult : No growth (qualifier value) Name Value Range Interpretation Code Description Data Mellissa rce(s) Supporting Document(s) ID Date Data Source [id number] 04/11/2019 12:23:48 PM [facility] Service Cmnt XXX-Imp : L HANDMicroorgani sm XXX Cult : No growth (qualifier value) Name Value Range Interpretation Code Description Data Mellissa rce(s) Supporting Document(s) ID Date Data Source [id number] 04/06/2019 10:19:39 AM [facility] Name Value Range Interpretation Code Description Data Mellissa rce(s) Supporting Document(s) Progress Note [facility] [id number]/CDTjkHFIyc2VfKZmtJTq0ZVxzHVZaT6MlDCD5hR2rVFA9MBsBRhRgMJvvEbQh lbm [file] [id number]= ID Date Data Source [id number] 04/06/2019 09:45:01 AM [facility] Name Value Range Interpretation Code Description Data Mellissa rce(s) Supporting Document(s) Glucose [Mass/volume] in Capillary blood by Glucometer 114 mg/dL 70- 140 [facility] [place] ID Date Data Source [id number] 04/06/2019 09:18:04 AM [facility] XR CHEST FRONTAL ONLY [id number] RESULTI nterpreted by:CIERRA StacyROCEDURE INFORMATION: Exam: XR [...] rce(s) Supporting Document(s) ID Date Data Source [id number] 04/06/2019 10:19:57 AM [facility] Name Value Range Interpretation Code Description Data Mellissa rce(s) Supporting Document(s) Albumin [Mass/volume] in Serum or Plasma by Bromocresol green (BCG) dye binding method 3.4 g/dL 3.5-[facility].2 [facility] Bil[facility].total [Mass/volume] in Serum or Plasma 0.3 mg/dL <1.2 [facility] [place] Calcium [Mass/volume] in Serum or Plasma 8.6 mg/dL 8.6-10.0 [facility] [place] Chloride [Moles/volume] in Serum or Plasma 93 mmol/L 98-[address] [facility] [place] Creatinine [Mass/volume] in Serum or Plasma 0.50 mg/dL 0.50-0.90 [facility] [place] Glucose [Mass/volume] in Serum or Plasma 101 mg/dL 70-140 [facility] [place] Alkaline phosphatase [Enzymatic activity/volume] in Serum or Plasma 78 U/L 35-104 [facility] [place] Potassium [Moles/volume] in Serum or Plasma 3.8 mmol/L 3.4-5.1 [facility] [place] Protein [Mass/volume] in Serum or Plasma 5.9 g/dL 6.4-8.[address] [facility] [place] Sodium [Moles/volume] in Serum or Plasma 129 mmol/L 136-[address] [facility] [place] Aspartate aminotransferase [Enzymatic activity/volume] in Serum or Plasma 25 U/L <32 [facility] [place] Urea nitrogen [Mass/volume] in Serum or Plasma 8 mg/dL 6-20 [facility] [place] Osmolality of Serum or Plasma by calculation 267 mosm/kg 275-[address] [facility] [place] Creatinine/Urea nitrogen [Mass Ratio] in Serum or Plasma 15 [facility] [place] Bicarbonate [Moles/volume] in Serum 23 mmol/L 22-29 [facility] [place] Alanine aminotransferase [Enzymatic activity/volume] in Seru m or Plasma 10 U/L <33 [facility] [place] Anion gap 3 in Serum or Plasma 13 mmol/L 8-15 [facility] [place] Albumin/Globulin [Mass Ratio] in Serum or Plasma 1.4 [facility] [place] Glomerular filtration rate/1.73 sq M pre dicted among non-blacks [Volume Rate/Area] in Serum or Plasma by Creatinine-based formula (MDRD) >[address] [facility] [place] Glomerular filtration rate/1.73 sq M pre dicted among blacks [Volume Rate/Area] in Serum or Plasma by Creatinine-based formula (MDRD) >60 [facility] [place] ID Date Data Source [id number] 04/06/2019 01:17:02 PM [facility] Name Value Range Interpretation Code Description Data Mellissa rce(s) Supporting Document(s) Magnesium [Mass/volume] in Serum or Plasma 1.9 mg/dL 1.6-2.6 [facility] [place] ID Date Data Source [id number] 04/06/2019 01:17:02 PM [facility] Name Value Range Interpretation Code Description Data Mellissa rce(s) Supporting Document(s) Phosphate [Mass/volume] in Serum or Plasma 3.2 mg/dL 2.5-4.5 [facility] [place] ID Date Data Source [id number] 04/06/2019 09:30:48 AM [facility] Name Value Range Interpretation Code Description Data Mellissa rce(s) Supporting Document(s) Leukocytes [#/volume] in Blood by Automated count 17.6 10*3/uL 4-[address] [facility] [place] Erythrocytes [#/volume] in Blood by Automated count 4.19 10*6/uL 4.1- 5.3 [facility] [place] Hemoglobin [Mass/volume] in Blood 11.3 g/dL 11.5-15.[address] [facility] [place] Hematocrit [Volume Fraction] of Blood by Automated count 33.8 % 3 6-[address] [facility] [place] Erythrocyte mean corpuscular volume [Entitic volume] by Auto mated count 80.7 fL 80-96 [facility] [place] Erythrocyte mean corpuscular hemoglobin [Entitic mass] by Automated count 27.0 pg 27-33 [facility] [place] Erythrocyte mean corpuscular hemoglobin concentration [Mass/volume] by Automated count 33.5 g/dL 32.0-[facility].0 [facility] distribution width [Ratio] by Automated count 16.8 % 11.5-14.[address] [facility] [place] Platelets [#/volume] in Blood by Automated count 314 10*3/uL 150-400 [facility] [place] Differential cell count method - Blood [facility] [place] Neutrophils/100 leukocytes in Blood by Automated count 86 % [facility] [place] Lymphocytes/100 leukocytes in Blood by Automated count 10 % [facility] [place] Monocytes/100 leukocytes in Blood by Automated count 3 % [facility] [place] Eosinophils/100 leukocytes in Blood by Automated count 0 % [facility] [place] Basophils/100 leukocytes in Blood by Automated count 1 % [facility] [place] Neutrophils [#/volume] in Blood by Automated count 15.29 10*3/uL 1.8- 7.[address] [facility] [place] Lymphocytes [#/volume] in Blood by Automated count 1.69 10*3/uL 1.2-[address] [facility] [place] Monocytes [#/volume] in Blood by Automated count 0.55 10*3/uL 0-0.8 [facility] [place] Eosinophils [#/volume] in Blood by Automated count 0.00 10*3/uL 0-0.5 [facility] [place] Basophils [#/volume] in Blood by Automated count 0.10 10*3/uL 0-0.2 [facility] [place] Nucleated erythrocytes/100 leukocytes [Ratio] in Blood by Automated count 0 /100{WBCs} 0-0 [facility] [place] ID Date Data Source [id number] 04/06/2019 08:57:37 AM [facility] Name Value Range Interpretation Code Description Data Mellissa rce(s) Supporting Document(s) Progress Note [facility] [id number]hMOvWcMNpcVoDe [facility] [file] DQo= ID Date Data Source [id number] 04/10/2019 06:06:00 PM [facility] CYTOPATHOLOGY REPORTName: NEREYDA COLÓN MMRN: [id number] Number: [id number] Date: 04/06/2019 00:00Received Date: [...] bacilli are seen on the AFB stain./cjsGross Zhpdubehcmz59 ml cloudy, red fluid with red and [...] rce(s) Supporting Document(s) ID Date Data Source [id number] 03/18/2019 12:00:00 AM EST [facility] Pérez Olvera DO Patient Name: LEO COLÓN [facility] Date of : 1970[place] [address] Date of Exam: 03/18/2019#: Fax: [phone] EXAM: [...] criteria for genetic testing established by National [facility] and [employer] guidelines. She should pursue arisk [...] (finding) completed Current drinker of alcohol (finding) [facility] Tobacco use and exposure 02/26/2020 12:00:00 AM EST Never used co mpleted Never used [facility] [place] Cigarette pack-years 02/26/2020 12:00:00 AM EST UNK completed [facility] [place] Cigarettes smoked current (pack per day) - Reported 02/26/20 12:00:00 AM EST UNK completed [facility] Smoking 02/26/2020 12:00:00 AM EST Current every day smoker co mpleted Current every day smoker [facility] [place] Alcohol intake 02/22/2020 12:00:00 AM EST Current drinker of al cohol (finding) completed Current drinker of alcohol (finding) [facility] Alcohol intake 12/22/2019 12:00:00 AM EDT Current drinker of al cohol (finding) completed Current drinker of alcohol (finding) [facility] Alcohol intake 2019 12:00:00 AM EDT Current drinker of al cohol (finding) completed Current drinker of alcohol (finding) [facility] Alcohol intake 10/23/2019 12:00:00 AM EDT Current drinker of al cohol (finding) completed Current drinker of alcohol (finding) [facility] Cigarette pack-years 10/23/2019 12:00:00 AM EDT UNK completed [facility] [place] Cigarettes smoked current (pack per day) - Reported 10/23/19 12:00:00 AM EDT UNK completed [facility] Smoking 10/23/2019 12:00:00 AM EDT Current some day smoker com pleted Current some day smoker [facility] [place] Alcohol intake 10/21/2019 12:00:00 AM EDT Current drinker of reta cohol (finding) completed Current drinker of alcohol (finding) [facility] Alcohol intake 06/08/2019 12:00:00 AM EST Current drinker of reta ibrahimol (finding) completed Current drinker of alcohol (finding) [facility] Cigarette pack-years 06/08/2019 12:00:00 AM EST UNK completed [facility] [place] Cigarettes smoked current (pack per day) - Reported 06/08/19 12:00:00 AM EST UNK completed [facility] Smoking 06/08/2019 12:00:00 AM EST Current some day smoker com pleted Current some day smoker [facility] [place] Alcohol intake 06/03/2019 12:00:00 AM EST Current drinker of reta cohol (finding) completed Current drinker of alcohol (finding) [facility] Cigarette pack-years 06/03/2019 12:00:00 AM EST UNK completed [facility] [place] Cigarettes smoked current (pack per day) - Reported 06/03/19 12:00:00 AM EST UNK completed [facility] Smoking 06/03/2019 12:00:00 AM EST Current some day smoker com pleted Current some day smoker [facility] [place] Alcohol intake 05/15/2019 12:00:00 AM EST Current drinker of al cohol (finding) completed Current drinker of alcohol (finding) [facility] Cigarette pack-years 05/15/2019 12:00:00 AM EST UNK completed [facility] [place] Cigarettes smoked current (pack per day) - Reported 05/15/19 12:00:00 AM EST UNK completed [facility] Smoking 05/15/2019 12:00:00 AM EST Current some day smoker com pleted Current some day smoker [facility] [place] Alcohol intake 05/14/2019 12:00:00 AM EST Current drinker of al cohol (finding) completed Current drinker of alcohol (finding) [facility] Cigarette pack-years 05/14/2019 12:00:00 AM EST UNK completed [facility] [place] Cigarettes smoked current (pack per day) - Reported 05/14/19 12:00:00 AM EST UNK completed [facility] Smoking 05/14/2019 12:00:00 AM EST Current some day smoker com pleted Current some day smoker [facility] [place] Alcohol intake 04/09/2019 12:00:00 AM EST Current drinker of al cohol (finding) completed Current drinker of alcohol (finding) [facility] Cigarette pack-years 04/09/2019 12:00:00 AM EST UNK [facility] Cigarettes smoked current (pack per day) - Reported 04/09/19 12:00:00 AM EST UNK completed [facility] Smoking 04/09/2019 12:00:00 AM EST Current some day smoker com pleted Current some day smoker [facility] [place] Vital Signs ID Date Data Source UNK [...] Body weight 66.679 kg 66.679 kg [facility] ([facility] ) Body mass index (BMI) [Ratio] 30.7 kg/m2 30.7 k g/m2 [facility] ([facility]) Body weight 147.00 [lb_av] 147.00 [lb_av] [facility] ([facility]) Body height 58 [in_i] 58 [in_i] [facility] ([facility]) 4'10" Oxygen saturation in Arterial blood by Pulse oximetry 95 % 95 % [facility] ([facility]) Heart rate 85 /min 85 /min [facility] ([facility]) Diastolic blood pressure 70 mm[Hg] 70 mm[Hg] [place] [facility]) Systolic blood pressure 102 mm[Hg] 102 mm[Hg] [place] ([facility]) ID Date Data Source [id number] 02/28/2020 09:24:31 PM [facility] Value Range Interpretation Code Description Data Source(s) WEIGHT RECORDED 165 lb 165 lb [facility] Body height Measured 58.66 in 58.66 in [facility] ID Date Data Source [id number] 03/30/2020 03:00:42 PM [facility] Value Range Interpretation Code Description Data Source(s) WEIGHT RECORDED 165 lb 165 lb [facility] Body height Measured 58.66 in 58.66 in [facility] ID Date Data Source [id number] [facility] Interpretation Code Description Data Source(s) WEIGHT RECORDED 160 lb 160 lb [facility] Body height Measured 58.66 in 58.66 in [facility] ID Date Data Source [id number] 12/21/2019 [facility]56[facility] Interpretation Code Description Data Source(s) WEIGHT RECORDED 158.4 lb 158.4 lb [facility] Body height Measured 58.66 in 58.66 in [facility] ID Date Data Source [id number] 11/20/2019 [facility]:21:[facility] Interpretation Code Description Data Source(s) WEIGHT RECORDED 158 lb 158 lb [facility] Body height Measured 59 in 59 in [facility] WEIGHT RECORDED 158.4 lb 158.4 lb [facility] Body height Measured 58.66 in 58.66 in [facility] ID Date Data Source [id number] 06/08/2019 02:17:02 PM [facility] Name Value Range Interpretation Code Description Data Source(s) WEIGHT RECORDED 150 lb 150 lb [facility] Body height Measured 59 in 59 in [facility] ID Date Data Source [id number] 05/20/2019 02:12:01 PM [facility] Name Value Range Interpretation Code Description Data Source(s) WEIGHT RECORDED 148 lb 148 lb [facility] Body height Measured 59 in 59 in [facility] ID Date Data Source [id number] 06/03/2019 12:47:00 PM [facility] Name Value Range Interpretation Code Description Data Source(s) WEIGHT RECORDED 154 lb 154 lb [facility] Body height Measured 59 in 59 in [facility] ID Date Data Source [id number] 09/03/2019 10:59:48 AM [facility] Name Value Range Interpretation Code Description Data Source(s) WEIGHT RECORDED 148.8 lb 148.8 lb [facility] Body height Measured 59 in 59 in [facility] Patient Treatment Plan of Care Planned Activity Planned Date Details Description Data Source (s) Morphine Sulfate 30 MG Extended Release Oral Tablet 04/12/19 12:00:00 AM [facility] Cyclobenzaprine hydrochloride 5 MG Oral Tablet 04/12/2020 12:00:00 AM [facility] oxcarbazepine 150 MG Oral Tablet 04/06/2020 12:00:00 AM [facility] gabapentin 600 MG Oral Tablet 03/31/2020 12:00:00 AM [facility] Morphine Sulfate 30 MG Extended Release Oral Tablet 03/15/20 12:00:00 AM [facility] Oxycodone Hydrochloride 5 MG Oral Tablet 02/16/2020 12:00:00 AM [facility] Morphine Sulfate 30 MG Extended Release Oral Tablet 02/16/20 12:00:00 AM [facility] Albuterol Sulfate HFA 108 (90 Base) MCG/ ACT Inhalation Aerosol Solution (PROVENTIL HFA) 12/22/2019 12:00:00 AM [facility] 60 ACTUAT Budesonide 0.08 MG/ACTUAT / fo rmoterol fumarate 0.0045 MG/ACTUAT Metered Dose Inhaler 12/22/2019 12:00:00 AM [facility] Oxycodone Hydrochloride 5 MG Oral Tablet 12/17/2019 12:00:00 AM [facility] Morphine Sulfate 30 MG Extended Release Oral Tablet 12/17/19 12:00:00 AM [facility] Oxycodone Hydrochloride 5 MG Oral Tablet 11/21/2019 12:00:00 AM [facility] Morphine Sulfate 30 MG Extended Release Oral Tablet 11/21/19 12:00:00 AM [facility] Prednisone 10 MG Oral Tablet 10/28/2019 12:00:00 AM [facility] 60 ACTUAT Budesonide 0.08 MG/ACTUAT / fo rmoterol fumarate 0.0045 MG/ACTUAT Metered Dose Inhaler 10/28/2019 12:00:00 AM [facility] Sulfamethoxazole 800 MG / Trimethoprim 160 MG Oral Tab let 10/28/2019 12:00:00 AM [facility] Prednisone 10 MG Oral Tablet 10/28/2019 12:00:00 AM [facility] Albuterol 0.833 MG/ML / Ipratropium [place] 0.167 MG/M L Inhalant Solution 10/23/2019 08:04:41 PM [facility] methylPREDNISolone sodium succinate (SOLU-MEDROL) 125 MG injection 10/23/2019 08:04:31 PM [facility] tizanidine 4 MG Oral Capsule 10/23/2019 12:00:00 AM [facility] Morphine Sulfate 30 MG Extended Release Oral Tablet 10/22/19 12:00:00 AM [facility] Oxycodone Hydrochloride 5 MG Oral Tablet 10/22/2019 12:00:00 AM [facility] gabapentin 600 MG Oral Tablet 09/21/2019 12:00:00 AM [facility] Oxycodone Hydrochloride 5 MG Oral Tablet 09/21/2019 12:00:00 AM [facility] Morphine Sulfate 30 MG Extended Release Oral Tablet 09/21/19 12:00:00 AM [facility] oxcarbazepine 150 MG Oral Tablet 09/14/2019 12:00:00 AM [facility] Oxycodone Hydrochloride 5 MG Oral Tablet 05/20/2019 12:00:00 AM [facility] Morphine Sulfate 30 MG Extended Release Oral Tablet 05/20/19 12:00:00 AM [facility] medical marijuana 05/13/2019 12:00:00 AM [facility] Morphine Sulfate 30 MG Extended Release Oral Tablet 04/23/19 12:00:00 AM [facility] Oxycodone Hydrochloride 5 MG Oral Tablet 04/23/2019 12:00:00 AM [facility] Varenicline Tartrate 0.5 MG X 11 & 1 MG X 42 Oral (BARBIE NTIX STARTING MONTH ) 04/09/2019 12:00:00 AM [facility] 24 HR Nicotine 0.292 MG/HR Transdermal Patch 04/09/2019 12:00:00 AM [facility] POLYETHYLENE GLYCOL 3350 142 MG/ML Oral Solution 04/07/2019 09:00:0 0 AM [facility] Oxycodone Hydrochloride 5 MG Oral Tablet 03/26/2019 12:00:00 AM [facility] Morphine Sulfate 30 MG Extended Release Oral Tablet 03/26/20 12:00:00 AM [facility] oxcarbazepine 150 MG Oral Tablet 03/21/2019 12:00:00 AM [facility] gabapentin 600 MG Oral Tablet 11/19/2018 12:00:00 AM [facility] Ibuprofen 800 MG Oral Tablet 05/16/2018 12:00:00 AM [facility] tizanidine 4 MG Oral Capsule 08/11/2017 12:00:00 AM [facility] Albuterol Sulfate HFA 108 (90 Base) MCG/ ACT Inhalation Aerosol Solution (PROVENTIL HFA) [facility] Prednisone [address] [facility] [place] Amlodipine [address] [facility] [place] Prednisone [address] [facility] [place]
--- OUTSIDE RECORDS SUMMARY | 2020-05-04 03:08 | CCD ---
Author Author [facility] Organization [facility] Address Unknown Phone Unavailable Care Team Providers Care News Analyst Name Role Phone CARMEN LOCK MD [...] LOCK MD Unavailable Unavailable Sammie, L Jen DIRECTOR OF PUBLIC WORKS Unavailable Unavailable Sammie, L Jen DIRECTOR OF PUBLIC WORKS Unavailable Unavailable Sammie, L Jen DIRECTOR OF PUBLIC WORKS Unavailable Unavailable Sammie, L Jen DIRECTOR OF PUBLIC WORKS Unavailable Unavailable Sammie, L Jen DIRECTOR OF PUBLIC WORKS Unavailable Unavailable Sammie, L Jen DIRECTOR OF PUBLIC WORKS Unavailable Unavailable Sammie, L Jen DIRECTOR OF PUBLIC WORKS Unavailable Unavailable Sammie, L Jen DIRECTOR OF PUBLIC WORKS Unavailable Unavailable Sammie, L Jen DIRECTOR OF PUBLIC WORKS Unavailable Unavailable Sammie, L Jen DIRECTOR OF PUBLIC WORKS Unavailable Unavailable Sammie, L Jen DIRECTOR OF PUBLIC WORKS Unavailable Unavailable Sammie, L Jen DIRECTOR OF PUBLIC WORKS Unavailable Unavailable Sammie, L Jen DIRECTOR OF PUBLIC WORKS Unavailable Unavailable Sammie, L Jen DIRECTOR OF PUBLIC WORKS Unavailable Unavailable Sammie, L Jen DIRECTOR OF PUBLIC WORKS Unavailable Unavailable Sammie, L Jen DIRECTOR OF PUBLIC WORKS Unavailable Unavailable Sammie, L Jen DIRECTOR OF PUBLIC WORKS Unavailable Unavailable Sammie, L Jen DIRECTOR OF PUBLIC WORKS Unavailable Unavailable Sammie, L Jen DIRECTOR OF PUBLIC WORKS Unavailable Unavailable Sammie, L Jen DIRECTOR OF PUBLIC WORKS Unavailable Unavailable Sammie, L Jen DIRECTOR OF PUBLIC WORKS Unavailable Unavailable Sammie, L Jen DIRECTOR OF PUBLIC WORKS Unavailable Unavailable Sammie, L Jen DIRECTOR OF PUBLIC WORKS Unavailable Unavailable Sammie, L Jen DIRECTOR OF PUBLIC WORKS Unavailable Unavailable FEDORS, MARIO LIME BOILER Unavailable Unavailable FEDORS, MARIO LIME BOILER Unavailable Unavailable FEDORS, MARIO LIME BOILER Unavailable Unavailable FEDORS, MARIO LIME BOILER Unavailable Unavailable FEDORS, MARIO LIME BOILER Unavailable Unavailable FEDORS, MARIO LIME BOILER Unavailable Unavailable FEDORS, MARIO LIME BOILER Unavailable Unavailable FEDORS, MARIO LIME BOILER Unavailable Unavailable FEDORS, MARIO LIME BOILER Unavailable Unavailable FEDORS, MARIO LIME BOILER Unavailable Unavailable FEDORS, MARIO LIME BOILER Unavailable Unavailable FEDORS, MARIO LIME BOILER Unavailable Unavailable FEDORS, MARIO LIME BOILER Unavailable Unavailable FEDORS, MARIO LIME BOILER Unavailable Unavailable FEDORS, MARIO LIME BOILER Unavailable Unavailable FEDORS, MARIO LIME BOILER Unavailable Unavailable FEDORS, MARIO LIME BOILER Unavailable Unavailable FEDORS, MARIO LIME BOILER Unavailable Unavailable FEDORS, MARIO LIME BOILER Unavailable Unavailable FEDORS, MARIO LIME BOILER Unavailable Unavailable Fons, M Mary DIRECTOR OF PUBLIC WORKS Unavailable Unavailable Fons, M Mary DIRECTOR OF PUBLIC WORKS Unavailable Unavailable Fons, M Mary DIRECTOR OF PUBLIC WORKS Unavailable Unavailable Fons, M Mary DIRECTOR OF PUBLIC WORKS Unavailable Unavailable Fons, M Mary DIRECTOR OF PUBLIC WORKS Unavailable Unavailable Fons, M Mary DIRECTOR OF PUBLIC WORKS Unavailable Unavailable Fons, M Mary DIRECTOR OF PUBLIC WORKS Unavailable Unavailable Fons, M Mary DIRECTOR OF PUBLIC WORKS Unavailable Unavailable Fons, M Mary DIRECTOR OF PUBLIC WORKS Unavailable Unavailable Fons, M Mary DIRECTOR OF PUBLIC WORKS Unavailable Unavailable Fons, M Mary DIRECTOR OF PUBLIC WORKS Unavailable Unavailable Fons, M Mary DIRECTOR OF PUBLIC WORKS Unavailable Unavailable Fons, M Mary DIRECTOR OF PUBLIC WORKS Unavailable Unavailable Fons, M Mary DIRECTOR OF PUBLIC WORKS Unavailable Unavailable Fons, M Mary DIRECTOR OF PUBLIC WORKS Unavailable Unavailable Fons, M Mary DIRECTOR OF PUBLIC WORKS Unavailable Unavailable Fons, M Mary DIRECTOR OF PUBLIC WORKS Unavailable Unavailable Fons, M Mary DIRECTOR OF PUBLIC WORKS Unavailable Unavailable Fons, M Mary DIRECTOR OF PUBLIC WORKS Unavailable Unavailable Fons, M Mary DIRECTOR OF PUBLIC WORKS Unavailable Unavailable Fons, M Mary DIRECTOR OF PUBLIC WORKS Unavailable Unavailable Fons, M Mary DIRECTOR OF PUBLIC WORKS Unavailable Unavailable Fons, M Mary DIRECTOR OF PUBLIC WORKS Unavailable Unavailable Fons, M Mary DIRECTOR OF PUBLIC WORKS Unavailable Unavailable Fons, M Mary DIRECTOR OF PUBLIC WORKS Unavailable Unavailable Fons, M Mary DIRECTOR OF PUBLIC WORKS Unavailable Unavailable Fons, M Mary DIRECTOR OF PUBLIC WORKS Unavailable Unavailable Fons, M Mary DIRECTOR OF PUBLIC WORKS Unavailable Unavailable Fons, M Mary DIRECTOR OF PUBLIC WORKS Unavailable Unavailable Fons, M Mary DIRECTOR OF PUBLIC WORKS Unavailable Unavailable Fons, M Mary DIRECTOR OF PUBLIC WORKS Unavailable Unavailable Fons, M Mary DIRECTOR OF PUBLIC WORKS Unavailable Unavailable Fons, M Mary DIRECTOR OF PUBLIC WORKS Unavailable Unavailable Fons, M Mary DIRECTOR OF PUBLIC WORKS Unavailable Unavailable Fons, M Mary DIRECTOR OF PUBLIC WORKS Unavailable Unavailable Fons, M Mary DIRECTOR OF PUBLIC WORKS Unavailable Unavailable Fons, M Mary DIRECTOR OF PUBLIC WORKS Unavailable Unavailable Fons, M Mary DIRECTOR OF PUBLIC WORKS Unavailable Unavailable Fons, M Mary DIRECTOR OF PUBLIC WORKS Unavailable Unavailable Fons, M Mary DIRECTOR OF PUBLIC WORKS Unavailable Unavailable Fons, M Mary DIRECTOR OF PUBLIC WORKS Unavailable Unavailable Fons, M Mary DIRECTOR OF PUBLIC WORKS Unavailable Unavailable Fons, M Mary DIRECTOR OF PUBLIC WORKS Unavailable Unavailable Fons, M Mary DIRECTOR OF PUBLIC WORKS Unavailable Unavailable Fons, M Mary DIRECTOR OF PUBLIC WORKS Unavailable Unavailable Fons, M Mary DIRECTOR OF PUBLIC WORKS Unavailable Unavailable Fons, M Mary DIRECTOR OF PUBLIC WORKS Unavailable Unavailable Fons, M Mary DIRECTOR OF PUBLIC WORKS Unavailable Unavailable Fons, M Mary DIRECTOR OF PUBLIC WORKS Unavailable Unavailable Fons, M Mary DIRECTOR OF PUBLIC WORKS Unavailable Unavailable Fons, M Mary DIRECTOR OF PUBLIC WORKS Unavailable Unavailable Fons, M Mary DIRECTOR OF PUBLIC WORKS Unavailable Unavailable Fons, M Mary DIRECTOR OF PUBLIC WORKS Unavailable Unavailable Fons, M Mary DIRECTOR OF PUBLIC WORKS Unavailable Unavailable CARMEN LOCK MD Unavailable Unavailable [...] SAMANTHA, Isaias CASAS MD Unavailable Unavailable SAMANTHA, Isaais CASAS MD Unavailable Unavailable SAMANTHA, Isaias CASAS [...] SAVICI, Estrellita BREWERA Unavailable Unavailable SAVICI, Estrellita BERWERA Unavailable Unavailable SAVICI, Estrellita BREWERA Unavailable Unavailable [...] Unavailable Lau, Sarah Moid MD Unavailable Unavailable Lua, Sarah Moid MD Unavailable Unavailable LauShereeul Moid [...] Unavailable Gerry Lau MD Unavailable Unavailable Gerry Lua MD Unavailable Unavailable Gerry Lau MD Unavailable [...] [email or web address] Unavailable Unavailable SlezkaWilliamjtech MD Unavailable Unavailable Feilcita Randolph MD Unavailable Unavailable Felicita Randolph MD [...] Ольга ALMANZA MD Unavailable Unavailable ISHMAEL LEI [id number] Unavailable Unavailable OLIMPIA REED MD Unavailable Unavailable [...] OLIMPIA REED MD Unavailable Unavailable Ольга CASTLE [id number] Unavailable Unavailable Dodard, Pérez DO Unavailable Unavailable [...] MELYNNE DEO MD Unavailable Unavailable MEHIC, FEHID LIME BOILER Unavailable Unavailable MEHIC, FEHID LIME BOILER Unavailable Unavailable MEHIC, FEHID LIME BOILER Unavailable Unavailable MEHIC, FEHID LIME BOILER Unavailable Unavailable MEHIC, FEHID LIME BOILER Unavailable Unavailable MEHIC, FEHID LIME BOILER Unavailable Unavailable MEHIC, FEHID LIME BOILER Unavailable Unavailable MEHIC, FEHID LIME BOILER Unavailable Unavailable MEHIC, FEHID LIME BOILER Unavailable Unavailable MEHIC, FEHID LIME BOILER Unavailable Unavailable MEHIC, FEHID LIME BOILER Unavailable Unavailable MEHIC, FEHID LIME BOILER Unavailable Unavailable MEHIC, FEHID LIME BOILER Unavailable Unavailable MEHIC, FEHID LIME BOILER Unavailable Unavailable MEHIC, FEHID LIME BOILER Unavailable Unavailable MEHIC, FEHID LIME BOILER Unavailable Unavailable MEHIC, FEHID LIME BOILER Unavailable Unavailable MEHIC, FEHID LIME BOILER Unavailable Unavailable MEHIC, FEHID LIME BOILER Unavailable Unavailable MEHIC, FEHID LIME BOILER Unavailable Unavailable MEHIC, FEHID LIME BOILER Unavailable Unavailable Re-disclosure Warning The records that [...] is protected by Article 27-F of the [facility] Public Health law. If you continue you may have access to information: Regarding HIV / AIDS; Provided by facilities licensed or operated by the [facility] Office of Mental Health; or Provided by the [facility] Office for People With Developmental Disabilities. If such information is present, then the following [facility] mandated warning applies: This information has [...] law may result in a fine or group home sentence or both. A general authorization for the release of medical or other information is NOT sufficient authorization for further disc losure. Allergies and Adverse Reactions Type Description Substance Reaction Status Data Source(s ) Drug Class NO KNOWN ALLERGIES NO KNOWN ALLERGIES [facility] Family History Family Member Name Family Member Gender Family Member Status Date o f Status Description Data Source(s) Unknown Male Problem MEDENT ([facility] Unknown Unknown Problem [facility] Unknown Unknown Problem [facility] ([facility], ) Unknown Unknown Problem [facility] ([facility] Encounters Encounter Providers Location Date Indications Data Source(s ) Outpatient Attender: ISHMAEL LEI [id number] 06/27/2020 12:0 0:00 AM [facility] Outpatient Attender: JANIA ROBISON NPReferrer: Ivon Lau MD [id number] 04/12/2020 12:00:00 AM EST [facility] C[facility] Outpatient Attender: ANTONIO BROWN [facility] 03/09 12:45:00 PM EST [facility] ([facility] Outpatient Attender: JANIA ROBISON LIME BOILER 04/05/2020 12:00:00 AM [facility] Outpatient Attender: ISHMAEL LEI [id number] 02/26/2020 12:00:00 AM EST - 02/26/2020 10:06:34 AM [facility] Outpatient Referrer: Ivon Lau MD 02/26/2020 12:00:0 0 AM EST Other nonspecific abnormal finding of lung [facility] Other nonspecific abnormal finding of cathy [facility] Outpatient Attender: Anthony LOCK MDReferrer: Ivon Lau MD [id number] 02/22/2020 12:00:00 AM EST - 02/22/2020 10:59:31 AM EST Myalgia, other site [facility] Myalgia, other site Outpatient Attender: ISHMAEL ELI [id number] 12/22/2019 12:00:00 AM EDT - 12/22/2019 04:06:25 PM EDT Systemic involvement of connective tissu e, unspecified [facility] Systemic involvement of connective tissu e, unspecified Outpatient Attender: MARIO GAMEZ NPReferrer: MARIO GAMEZ NP 12/22/2019 12:00:00 AM EDT - 12/23/2019 12:00:00 AM EDT [facility] Outpatient 12/22/2019 12:00:00 AM [facility] Outpatient 12/02/2019 12:00:00 AM [facility] Outpatient Attender: MARIO GAMEZ NP 12/02/2019 12:00:00 A M [facility] Outpatient Attender: JANIA ROBISON NPReferrer: Ivon Lau MD 0 [id number] 11/20/2019 12:00:00 AM EDT Myalgia, other site [facility] Myalgia, other site Outpatient Attender: WILDA CASTLE [id number] 2019 12: 00:[address] [facility]med [facility] Outpatient Attender: MARIO GAMEZ NPReferrer: MARIO GAMEZ NP 11/04/2019 12:00:00 AM [facility] Outpatient Attender: MARIO GAMEZ NP 11/04/2019 12:00:00 A M [facility] Outpatient 11/04/2019 12:00:00 AM [facility] Outpatient Attender: Jen PETER 11/03/2019 12:00:0 0 AM [facility] Inpatient Attender: TYRON MURPHYI MDAttender: BASHIR JOHNSONDAAttender: Russel Johns MDAttender: CLAUS ALMANZA MDAdmitter: Russel Johns MDReferrer: Russel Johns MD [id number] 10/23/2019 12:00:00 AM EDT - 10/28/2019 12:00:00 AM EDT Acute and chronic respiratory failure with hypoxia [facility] Acute and chronic respiratory failure wi th hypoxia Patient discharged. Outpatient Attender: Anthony LOCK MDReferrer: Ivon Lau MD [id number] 10/23/2019 12:00:00 AM EDT - 10/23/2019 03:16:43 PM EDT Myalgia, other site [facility] Myalgia, other site Outpatient Attender: MARIO GAMEZ NP [id number] 10/21/2019 12: 00:00 AM EDT Other nonspecific abnormal finding of lung [facility] Other nonspecific abnormal finding of [facility]athy [facility] Outpatient Attender: Anthony LOCK MDReferrer: Ivon Lau MD [id number] 09/22/2019 12:00:00 AM EDT [facility] Outpatient Attender: Mary Leyva FNPReferrer: Mary MCDANIEL-SJP.KRISTEL 08/13/2019 09:26:10 AM EDT - 08/13/2019 12:17:[address] [facility] Outpatient Attender: Mary Leyva FNPReferrer: Mary MCDANIEL-SJLurdesKRISTEL 08/13/2019 12:00:00 AM EDT - 08/13/2019 10:44:[address] [facility] Outpatient Attender: Mary MORALES-SJLurdesKRISTEL 0 12:00:00 AM EDT - 07/29/2019 09:38:48 AM EDT [facility] Outpatient Referrer: Felicita MORALES-SJRICHARD 09/2019 10:47:[address] [facility] Outpatient Attender: Felicita Whittenerrer: Stevie Randolph MD SJAnthony.KRISTEL-SJP.KRISTEL 06/25/2019 09:20:48 AM EDT - 06/25/2019 12:58:[address] [facility] Outpatient Attender: MARIO GAMEZ NP 06/25/2019 12:00:00 A M EDT [facility] Outpatient Attender: Felicita TIRADO.KRISTEL-SJP.KRISTEL 08/2019 12:00:00 AM EST - 06/11/2019 12:00:[address] [facility] Outpatient Attender: MARIO GAMEZ NPAdmitter: MARIO GAMEZ NP [id number] 06/03/2019 12:00:00 AM EST - 06/03/2019 05:06:00 PM EST Chronic diastolic (congestive) heart failure [facility] Chronic diastolic (congestive) heart rahul lure Patient discharged. Outpatient Attender: MARIO GAMEZ NP [id number] 2019 12:00:00 AM EST - 05/15/2019 02:43:11 PM EST Acute respiratory failure with hypoxia [facility] Acute respiratory failure with hypoxia Outpatient Attender: MARIO GAMEZ NPReferrer: MARIO GAMEZ NP 05/15/2019 12:00:00 AM EST Acute respiratory failure with hypoxia [facility] Acute respiratory failure with hypoxia Outpatient Attender: WILDA CASTLE [id number] 05/14 12:00:00 AM EST - 05/14/2019 09:24:14 AM EST Other nonspecific abnormal finding of lung [facility] Other nonspecific abnormal finding of cathy [facility] Outpatient Attender: WILDA CASTLE [id number] 05/13/2019 12:00:00 AM EST [facility] Outpatient Referrer: Pérez Olvera DO 05/01/2019 01:24:00 PM EST [facility] Outpatient Attender: AUGUSTO SINGH MDAdm itter: AUGUSTO SINGH MDReferrer: Anthony LOCK MD 04/09/2019 12:00:00 AM [facility] Referrer: Anthony LOCK MD 04/07/2019 12:00:00 AM ES [facility] Inpatient Attender: DEFAULT / GENE VANE / UNKNOWN PROVIDER ALIASES Attender: AUGUSTO SINGH MDAttender: OLIMPIA REED MDAttender: GIRISH DOYLE MDAttender: BASHIR JOHNSONDAAttender: NICOLLE BENAVIDEZ MDAttender: Betsey Thakkar MDAdmitter: NICOLLE BENAVIDEZ MDReferrer: Anthony LOCK MD [id number] 04/06 12:00:00 AM EST - 04/09/2019 01:32:00 PM EST Salmonella sepsis [facility] spital Salmonella sepsis Patient discharged. Outpatient Attender: Betsey Thakkar MDA dmitter: Betsey Thakkar MDReferrer: MIKY JIMÉNEZ 04/06/2019 12:00:00 AM EST AP1 [facility] AP1 Outpatient Referrer: Pérez Olvera DO 03/18/2019 01:48:00 PM EST [facility] Outpatient Referrer: Pérez Olvera DO 03/18/2019 01:30:00 PM EST [facility] Outpatient Referrer: Pérez Olvera DO 03/17/2019 09:11:00 AM EST [facility] Outpatient Attender: DEO Ervin/Morenita/Boyd aburto 03/16/2019 02:00:00 PM EST [facility] ([facility] Outpatient Referrer: Pérez [...] mouth Three times daily for 10 days [facility] Morphine Sulfate 30 MG Extended Release Oral Tablet Morphine Sulfate ER 30 MG Oral Tablet Extended Release (MS CONTIN) Morphine Sulfate ER 30 MG Oral Tablet Extended Release (MS CONTIN) 04/12/2020 12:00:00 AM EST 30 mg Oral active Pain management contract agreementNeck pain on left side Take 1 tablet by mouth every 12 (twelve) hours , Max Daily Dose: 60 mg [facility] Pain management contract agreement Neck pain [...] tablets by mouth twice a d ay. [facility] gabapentin 600 MG Oral Tablet Gabapentin 600 MG Oral T ablet (NEURONTIN) Gabapentin 600 MG Oral Tablet (NEURONTIN) 03/31/2020 12:00:00 AM EST 1200 mg Oral active Neck pain on left side Ta ke 2 tablets by mouth Three times daily [facility] Neck pain on left side 600 mg 03/31/2020 12:00:00 AM EST tablet 180 TAKE 2 TABLETS BY MOUTH THREE TIMES A DAY TAKE 2 TABLETS BY MOUTH THREE TIMES A DAY SOLD: 04/07/2020 [facility] 30 mg 03/17/2020 12:00:00 AM EST tablet extended release 60 TAKE ONE TABLET BY MOUTH EVERY 12 HOURS MAXIMUM DAILY DOSE = 60MG TAKE ONE TABLET BY MOUTH EVERY 12 HOURS MAXIMUM DAILY DOSE = 60MG SOLD: 03/19/2020 [facility] Morphine Sulfate 30 MG Extended Release Oral Tablet Morphine Sulfate ER 30 MG Oral Tablet Extended Release (MS CONTIN) Morphine Sulfate ER 30 MG Oral Tablet Extended Release (MS CONTIN) 03/15/2020 12:00:00 AM EST 30 mg Oral aborted Pain management contract agreementNeck pain on left side Take 1 tablet by mouth every 12 (twelve) hours , Max Daily Dose: 60 mg [facility] Pain management contract agreement Neck pain on left side 20 mg 03/10/2020 12:00:00 AM EST capsule 60 TAKE ONE CAPSULE BY MOUTH TWICE A DAY TAKE ONE CAPSULE BY MOUTH TWICE A DAY SOLD: 03/11/2020 [facility] pantoprazole 40 MG Delayed Release Oral Tablet PANTOPRAZOLE SODIUM 03/10/2020 12:00:00 AM EST tablet,delayed release (DR/EC) 90 T ARCELIA ONE TABLET BY MOUTH EVERY DAY TAKE ONE TABLET BY MOUTH EVERY DAY SOLD: 03/11/2020 [facility] Alprazolam 0.5 MG Oral Tablet ALPRAZOLAM 03/10/2020 12:00:00 AM EST t ablet 120 TAKE ONE TABLET BY MOUTH FOUR TIMES A DAY MAXIMUM FRANNIE Y DOSE = 4 TABLETS TAKE ONE TABLET BY MOUTH FOUR TIMES A DAY MAXIMUM DAILY DOSE = 4 TABLETS SOLD: 03/11/2020 [facility] 40 mg 03/10/2020 12:00:00 AM EST tablet 90 TAKE ONE TABLET BY MOUTH EVERY DAY TAKE ONE TABLET BY MOUTH EVERY DAY SOLD: 03/11/2020 [facility] albuterol (PROVENTIL HFA) inhaler 2 puff 6945-3599-42 02/26/2020 08:45:00 AM EST 2 {puff} Inhalation active 2 pu ff, Inhalation, Once, Sat02/26/20 at 0845, For 1 dose
Shake the inhaler well before each spray.
[facility] Medication administered onsite 5 mg 02/17/2020 [...] hours , Max Daily Dose: 60 mg [facility] Neck pain on left side Oxycodone Hydrochloride 5 MG Oral Tablet oxyCODONE HCl 5 MG Oral Tablet (ROXICODONE) oxyCODONE HCl 5 MG Oral Tablet (ROXICODONE) 02/16/2020 12:00:00 AM EST 5 mg Oral aborted Neck pain on left side Take 1 tablet by mouth every 3 (three) hours as needed for Pain, Max Daily Dose: 8 tablets [facility] Neck pain on left side 20 [...] OR FOR SHORTNESS OF BREATH SOLD: 12/24/2019 [email or web address] Albuterol Sulfate HFA 108 (90 Base) MCG/ ACT Inhalation Aerosol Solution (PROVENTIL HFA) 5405-3745-36 12/22/2019 12:00:00 AM EDT 2 {puff} Inha lation active Wheezing Inhale 2 puffs i nto the lungs every 6 (six) hours as needed for Wheezing or Shortness of Breath [facility] Wheezing 60 ACTUAT Budesonide 0.08 MG/ACTUAT / fo rmoterol fumarate 0.0045 MG/ACTUAT Metered Dose Inhaler Budesonide-Formoterol Fumarate 80-4.5 MCG/ACT Inhalation Aerosol (SYMBICORT) Budesonide-Formoterol Fumarate 80-4.5 MC G/ACT Inhalation Aerosol (SYMBICORT) 12/22/2019 12:00:00 AM EDT 2 {puff} Inhalation active Wheezing Inhale 2 puffs into the lungs Two Times Daily [facility] Wheezing 30 mg 12/21/2019 12:00:00 AM [...] for Pain, Max Daily Dose: 8 tablets [facility] Neck pain on left side Morphine [...] hours , Max Daily Dose: 60 mg [facility] Neck pain on left side 20 [...] for Pain, Max Daily Dose: 8 tablets [facility] Neck pain on left side Morphine Sulfate 30 MG Extended Release Oral Tablet Morphine Sulfate ER 30 MG Oral Tablet Extended Release (MS CONTIN) Morphine Sulfate ER 30 MG Oral Tablet Extended Release (MS CONTIN) 11/21/2019 12:00:00 AM EDT 30 mg Oral active Myofascial pain syndrome Take 1 tablet by mouth every 12 (twelve) hours , Max Daily Dose: 60 mg [facility] Myofascial pain syndrome 30 mg 11/20/2019 [...] 0900, For 27 doses
Take with food.
[facility] Medication administered onsite Prednisone 10 MG Oral Tablet predniSONE 10 MG Oral Tab let (DELTASONE) predniSONE 10 MG Oral Tablet (DELTASONE) 10/28/2019 12:00:00 AM EDT aborted Take 4 tablets by mouth daily for 2wks then 3 tab daily for 2 weeks then 2 tab daily for 2 weeks [facility] Sulfamethoxazole 800 MG / Trimethoprim 1 60 MG Oral Tablet Sulfamethoxazole- Trimethoprim 800-160 MG Oral Tablet (Bactrim DS) Sulfamethoxazole-Trimethoprim 800-160 MG Oral Tablet (Bactrim DS) 10/28/2019 12:00:00 AM EDT 1 {tbl } Oral active Take 1 tablet by mouth 3 (th ree) times a week for 18 doses [facility] Prednisone 10 MG Oral Tablet predniSONE 10 MG Oral Tab let (DELTASONE) predniSONE 10 MG Oral Tablet (DELTASONE) 10/28/2019 12:00:00 AM EDT aborted Take 4 tab for 2wks then 3 tab for 2 weeks then 2 tab for 2 weeks [facility] 60 ACTUAT Budesonide 0.08 MG/ACTUAT / fo rmoterol fumarate 0.0045 MG/ACTUAT Metered Dose Inhaler Budesonide-Formoterol Fumarate 80-4.5 MCG/ACT Inhalation Aerosol (SYMBICORT) Budesonide-Formoterol Fumarate 80-4.5 MC G/ACT Inhalation Aerosol (SYMBICORT) 10/28/2019 12:00:00 AM EDT 2 {puff} Inhalation aborted Inhale 2 puffs into the lungs Tw o Times Daily [facility] azithromycin (ZITHROMAX) 500 mg in sodium chloride 0.9 % 250 mL (2 mg/mL) IVPB 10/27/2019 09:30:00 AM EDT 500 mg Intravenous active 500 mg, Intravenous, at 250 mL/hr, Every 24 hours, First dose on Sat10/27/19 at 0930, For 3 days [facility] Medication administered onsite Ceftriaxone 1000 MG Injection cefTRIAXone (ROCEPHIN) i nfusion 1 g (premix) cefTRIAXone (ROCEPHIN) infusion 1 g (premix) 10/27/2019 09:30:00 AM EDT 1 g Intravenous active 1 g, Intraven ous, at 100 mL/hr, Every 24 hours, First dose on Sat10/27/19 at 0930, For 5 days
Discouraged Uses: Empiric treatment of post-surgical meningitis (ceftazidime preferred)
[facility] Medication administered onsite Oxycodone Hydrochloride 5 [...] only) require Pain Service consultation and approval.
[facility] Medication administered onsite Prednisone 20 MG Oral Tablet predniSONE (DELTASONE) ta blet 60 mg predniSONE (DELTASONE) tablet 60 mg 10/25/2019 09:00:00 AM EDT 60 mg Oral aborted 60 mg, Oral, Daily Standard, First dose on Sat10/25/19 at 0900, For 30 days
Take with food.
[facility] Medication administered onsite 120 ACTUAT Albuterol 0.1 MG/ACTUAT / Ipr atropium [place] 0.02 MG/ACTUAT Metered Dose Inhaler ipratropium-albuterol (COMBIVENT RESPIMAT) inhaler 1 puff ipratropium-albuterol (COMBIVENT RESPIMAT) inhaler 1 puff 10/24/2019 08:00:00 PM EDT 1 {puff} Inhalation active 1 pu ff, Inhalation, Every 6 hours, First dose on Sat10/24/19 at 2000, For 4 days [facility] Medication administered onsite heparin (porcine) 5000 UNIT/ML injection 5,000 Units 25009-1 [id number] 10/24/2019 05:00:00 PM EDT 5000 U Subcutaneous aborted 5,000 Units, Subcutaneous, Three Times Daily Standard, First dose (after last modification) on 10/24/19 at 1700, For 2 doses [facility] Medication administered onsite methylPREDNISolone sodium succinate (SOLU-MEDROL) injection 60 mg [id number] 10/24/2019 09:45:00 AM EDT 60 mg Intravenous aborted 60 mg, Intravenous, Daily Standard, First dose on 10/24/19 at 0945, For 3 days [facility] Medication administered onsite Pravastatin Sodium 20 MG Oral Tablet pravastatin (PRAV ACHOL) tablet 40 mg pravastatin (PRAVACHOL) tablet 40 mg 10/24/2019 09:00:00 AM EDT 40 mg Oral active 40 mg, Oral, Mariana ly Standard, First dose on 10/24/19 at 0900, For 30 doses [facility] Medication administered onsite Fluoxetine 20 MG Oral Capsule fluoxetine (PROZAC) caps ule 20 mg fluoxetine (PROZAC) capsule 20 mg 10/24/2019 09:00:00 AM EDT 20 mg Oral active 20 mg, Oral, 2 Times Daily, First dose on 10/24/19 at 0900, For 30 days [facility] Medication administered onsite pantoprazole 40 MG Delayed Release Oral Tablet pantoprazole (PROTONIX) EC tablet 40 mg pantoprazole (PROTONIX) EC tablet 40 mg 10/24/2019 09:00:00 AM E DT 40 mg Oral active 40 mg, Ora l, Daily Standard, First dose on 10/24/19 at 0900, For 30 days
Do not crush or chew
[facility] Medication administered onsite heparin (porcine) 5000 UNIT/ML injection 5,000 Units [id number] 10/24/2019 09:00:00 AM EDT 5000 U Subcutaneous aborted 5,000 Units, Subcutaneous, Three Times Daily Standard, First dose on 10/24/19 at 0900, For 30 days [facility] Medication administered onsite gabapentin 300 MG Oral Capsule gabapentin (NEURONTIN) capsule 900 mg gabapentin (NEURONTIN) capsule 900 mg 10/24/2019 09:00:00 AM EDT 900 mg Oral active 900 mg, Oral, Three Times D aily Standard, First dose (after last modification) on 10/24/19 at 0900, For 30 doses [facility] Medication administered onsite oxcarbazepine 150 MG Oral Tablet OXcarbazepine (TRILEP VIET) tablet 450 mg OXcarbazepine (TRILEPTAL) tablet 450 mg 10/24/2019 09:00:00 AM EDT 450 mg Oral active 450 mg, Oral, 2 Times Daily, First dose on 10/24/19 at 0900, For 30 days [facility] Medication administered onsite potassium chloride (K-DUR) dissolvable tablet 40 mEq [id number] 10/24/2019 08:00:00 AM EDT 40 meq Oral completed 40 mEq, Oral, Once, 10/24/19 at 0800, For 1 dose
May be dissolved in water for patients with a G-Tube or unable to swallow. If concern for clogging G-Tube, may contact Pharmacy to switch formulation to a powder packet.
[facility] Medication administered onsite Morphine Sulfate 30 MG Extended Release Oral Tablet morphine sulfate ER (MS CONTIN) 12 hr tablet 30 mg morphine sulfate ER (MS CONTIN) 12 hr tablet 30 mg 10/24/2019 04:00:00 AM EDT 30 mg Oral active 30 mg, Oral, Every 12 hours, First dose on 10/24/19 at 0400, For 7 days [facility] Medication administered onsite tizanidine 4 MG Oral Tablet tizanidine (ZANAFLEX) tabl et 4 mg tizanidine (ZANAFLEX) tablet 4 mg 10/24/2019 03:52:44 AM EDT 4 mg Oral completed 4 mg, Oral, Three Times Daily-PRN, Muscle spasms, Starting 10/24/19 at 0352, For 3 days 8 hours [facility] Medication administered onsite Oxycodone Hydrochloride 5 [...] only) require Pain Service consultation and approval.
[facility] Medication administered onsite 60 ACTUAT Budesonide 0.08 MG/ACTUAT / fo rmoterol fumarate 0.0045 MG/ACTUAT Metered Dose Inhaler budesonide-formoterol (SYMBICORT) 80-4.5 MCG/ACT inhaler 2 puff budesonide-formoterol (SYMBICORT) 80-4.5 MCG/ACT inhal er 2 puff 10/23/2019 11:45:00 PM EDT 2 {puff} Inhalation active 2 puff, Inhalation, 2 Times Daily, First dose on Sat10/23/19 at 2345, For 14 days
Shake well before using
[facility] Medication administered onsite Hydrocortisone 50 MG/ML Injectable Solut ion hydrocortisone sodium succinate (SOLU-CORTEF) (PF) injection 50 mg hydrocortisone sodium succinate (SOLU-CO RTEF) (PF) injection 50 mg 10/23/2019 11:00:00 PM EDT 50 mg Intravenous aborted 50 mg, Intravenous, Every 6 hours, First dose on Sat10/23/19 at 2300, For 30 days [facility] Medication administered onsite Piperacillin 3000 MG / tazobactam 375 MG Injection piperacillin-tazobactam (ZOSYN) IVPB 3.375 g (premix) piperacillin-tazobactam (ZOSYN) IVPB 3.3 75 g (premix) 10/23/2019 10:30:00 PM EDT 3.375 g Intravenous abo rted 3.375 g, Intravenous, Administer over 4 Hours, Every 8 hours, First dose on Sat10/23/19 at 2230, For 7 days [facility] Medication administered onsite vancomycin (VANCOCIN) 1250 mg in NaCl 0.9 % 250 mL (premix) [id number] 10/23/2019 10:30:00 PM EDT 1250 mg Intravenous aborted 1,250 mg, Intravenous, Administer over 90 Minutes, Every 12 hours, First dose (after last reorder) on Sat10/23/19 at 2230, For 3 days [facility] Medication administered onsite Lorazepam 0.5 MG Oral Tablet LORazepam (ATIVAN) tablet 0.5 mg LORazepam (ATIVAN) tablet 0.5 mg 10/23/2019 10:15:00 PM EDT 0.5 mg Oral com pleted 0.5 mg, Oral, Once, Sat10/23/19 at 2215, For 1 dose [facility] Medication administered onsite Albuterol 0.833 MG/ML [...] this unless NESHA is selected 'Yes' below.
[facility] Medication administered onsite ropinirole 1 MG Oral Tablet ropinirole (REQUIP) tablet 1 mg ropinirole (REQUIP) tablet 1 mg 10/23/2019 10:00:00 PM EDT 1 mg Oral active 1 mg, Oral, Nightly, First dose on Sat10/23/19 at 2200, For 30 days [facility] Medication administered onsite Acetaminophen 10 MG/ML Injectable Soluti on acetaminophen (OFIRMEV) infusion 1,000 mg acetaminophen (OFIRMEV) infusion 1,000 mg 10/23/2019 08:45:00 PM EDT 1000 mg Intravenous completed 1,000 mg , Intravenous, Administer over 15 Minutes, Once, Sat10/23/19 at 2045, For 1 dose
Maximum dose 3 gm daily from all sources
[facility] Medication administered onsite azithromycin (ZITHROMAX) injection 500 mg [id number] 10/23/2019 0 8:15:00 PM EDT 500 mg Intravenous completed 500 mg, Intravenous, Once, Sat10/23/19 at 2015, For 1 dose [facility] Medication administered onsite 50 ML Magnesium Sulfate 40 MG/ML Injecti on magnesium sulfate infusion 2 g/50 mL (premix) magnesium sulfate infusion 2 g/50 mL (premix) 10/23/19 08:15:00 PM EDT 16 meq Intravenous completed 16 mEq, Intravenous, Once, Sat10/23/19 at 2014, For 1 dose
8 mEq = 1 g magnesium sulfate
[facility] Medication administered onsite Ceftriaxone 1000 MG Injection cefTRIAXone (ROCEPHIN) i njection 1 g cefTRIAXone (ROCEPHIN) injection 1 g 10/23/2019 08:15:00 PM EDT 1 g Intraven ous completed 1 g, Intravenous, On ce, Sat10/23/19 at 2014, For 1 dose
Discouraged Uses: Empiric treatment of post-surgical meningitis (ceftazidime preferred)
[facility] Medication administered onsite Albuterol 0.833 MG/ML [...] mL of medication (3 mL per treatment.
[facility] Medication administered onsite methylPREDNISolone sodium succinate (SOLU-MEDROL) injection 125 mg [id number] 10/23/2019 08:15:00 PM EDT 125 mg Intravenous completed 125 mg, Intravenous, Once, Sat10/23/19 at 2014, For 1 dose [facility] Medication administered onsite Albuterol 0.833 MG/ML / Ipratropium Brom sonali 0.167 MG/ML Inhalant Solution ipratropium-albuterol (DUONEB) 0.5-2.5 (3) MG/3ML nebulizer solution ipratropium-albuterol (DUONEB) 0.5-2.5 (3) MG/3ML nebulizer solution 10/23/2019 08:04:41 PM EDT completed Starting Sat10/23/19 at 2004, For 1 dose
[place], [place]id[place] : cabinet override
[facility] Medication administered onsite methylPREDNISolone sodium succinate (SOLU-MEDROL) 125 MG inj ection [id number] 10/23/2019 08:04:31 PM EDT completed Starting Sat10/23/19 at 2004, For 1 dose
[place], Viridiana : cabinet override
[facility] Medication administered onsite 4 mg 10/23/2019 [...] take an extra 4mg at night PRN. [facility] 4 mg 10/23/2019 12:00:00 AM EDT [...] hours , Max Daily Dose: 60 mg [facility] Myofascial pain syndrome Oxycodone Hydrochloride 5 MG Oral Tablet oxyCODONE HCl 5 MG Oral Tablet (ROXICODONE) oxyCODONE HCl 5 MG Oral Tablet (ROXICODONE) 10/22/2019 12:00:00 AM EDT 5 mg Oral aborted Neck pain on left side Take 1 tablet by mouth every 3 (three) hours as needed for Pain, Max Daily Dose: 8 tablets [facility] Neck pain on left side 1,250 [...] hours , Max Daily Dose: 60 mg [facility] Myofascial pain syndrome gabapentin 600 MG Oral Tablet Gabapentin 600 MG Oral T ablet (NEURONTIN) Gabapentin 600 MG Oral Tablet (NEURONTIN) 09/21/2019 12:00:00 AM EDT 1200 mg Oral active Take 2 tablets by mo [facility] Three times daily [facility] Oxycodone Hydrochloride 5 MG Oral Tablet oxyCODONE HCl 5 MG Oral Tablet (ROXICODONE) oxyCODONE HCl 5 MG Oral Tablet (ROXICODONE) 09/21/2019 12:00:00 AM EDT 5 mg Oral active Neck pain on left side Take 1 tablet by mouth every 3 (three) hours as needed for Pain, Max Daily Dose: 8 tablets [facility] Neck pain on left side 150 [...] THREE TABLETS BY MOUTH TWICE A DAY [facility] 150 mg 09/14/2019 12:00:00 AM EDT [...] Once, Sat06/03/19 at 1345, For 1 dose [facility] Medication administered onsite 20 mg 06/03/2019 [...] hours , Max Daily Dose: 60 mg [facility] Myofascial pain syndrome Oxycodone Hydrochloride 5 MG Oral Tablet oxyCODONE HCl 5 MG Oral Tablet (ROXICODONE) oxyCODONE HCl 5 MG Oral Tablet (ROXICODONE) 05/20/2019 12:00:00 AM EST 5 mg Oral active Neck pain on left side Take 1 tablet by mouth every 3 (three) hours as needed for Pain, Max Daily Dose: 8 tablets [facility] Neck pain on left side medical marijuana 05/13/2019 12:00:00 AM EST Oral completed Take by mouth every hour as needed [facility] 1-0.05 % 05/12/2019 12:00:00 AM EST lotion 60 APPLY TO GROIN AREA TWO TIMES A DAY APPLY TO GROIN AREA TWO TIMES A DAY SOLD: 06/11/2019 [facility] 1-0.05 % 05/12/2019 12:00:00 AM EST lotion 60 APPLY TO GROIN AREA TWO TIMES A DAY APPLY TO GROIN AREA TWO TIMES A DAY SOLD: 05/13/2019 [facility] 1-0.05 % 05/12/2019 12:00:00 AM EST [...] DAILY DOSE = TWO TABLETS SOLD: 04/24/2019 [facility] Oxycodone Hydrochloride 5 MG Oral Tablet oxyCODONE HCl 5 MG Oral Tablet (ROXICODONE) oxyCODONE HCl 5 MG Oral Tablet (ROXICODONE) 04/23/2019 12:00:00 AM EST 5 mg Oral aborted Neck pain on left side Take 1 tablet by mouth every 3 (three) hours as needed for Pain, Max Daily Dose: 8 tablets [facility] Neck pain on left side Morphine Sulfate 30 MG Extended Release Oral Tablet Morphine Sulfate ER 30 MG Oral Tablet Extended Release (MS CONTIN) Morphine Sulfate ER 30 MG Oral Tablet Extended Release (MS CONTIN) 04/23/2019 12:00:00 AM EST 30 mg Oral aborted Myofascial pain syndrome Take 1 tablet b y mouth every 12 (twelve) hours , Max Daily Dose: 60 mg [facility] Myofascial pain syndrome 20 mg 04/14/2019 12:00:00 AM EST capsule 60 TAKE ONE CAPSULE BY MOUTH TWICE A DAY TAKE ONE CAPSULE BY MOUTH TWICE A DAY SOLD: 04/15/2019 [facility] 1 mg 04/14/2019 12:00:00 AM EST [...] Place 1 patch onto the skin daily [facility] Varenicline Tartrate 0.5 MG X 11 & 1 MG X 42 Oral (BABRIE NTIX STARTING MONTH ) [id number] 04/09/2019 12:00:00 AM EST active Take one 0.5 mg tablet PO daily for 3 days, then increase to one 0.5 mg tablet BID for 4 days, then increase to one 1 mg tablet BID. [facility] 24 HR Nicotine 0.292 MG/HR Transdermal P atch nicotine (NICODERM CQ) 7 MG/24HR 1 patch nicotine (NICODERM CQ) 7 MG/24HR 1 patch 04/08/2019 09:00:00 AM EST 1 {patch} Transdermal active 1 patch, Transdermal, Administer over 24 Hours, Daily Standard, First dose on Sat04/08/19 at 0900, For 30 days [facility] Medication administered onsite Prednisone 20 MG Oral Tablet predniSONE (DELTASONE) ta blet 40 mg predniSONE (DELTASONE) tablet 40 mg 04/08/2019 09:00:00 AM EST 40 mg Oral aborted 40 mg, Oral, Daily Standard, First dose on Sat04/08/19 at 0900, For 7 days
Take with food.
[facility] Medication administered onsite oxcarbazepine 150 MG Oral Tablet OXcarbazepine (TRILEP VIET) tablet 450 mg OXcarbazepine (TRILEPTAL) tablet 450 mg 04/07/2019 09:15:00 PM EST 450 mg Oral active 450 mg, Oral, 2 Times Daily, First dose on Sat04/07/19 at 2115, For 29 days [facility] Medication administered onsite pantoprazole 40 MG Delayed Release Oral Tablet pantoprazole (PROTONIX) EC tablet 40 mg pantoprazole (PROTONIX) EC tablet 40 mg 04/07/2019 09:00:[address] 40 mg Oral active 40 mg, Ora l, Daily Standard, First dose on Sat04/07/19 at 0900, For 30 days
Do not crush or chew
[facility] Medication administered onsite Pravastatin Sodium 20 MG Oral Tablet pravastatin (PRAV ACHOL) tablet 40 mg pravastatin (PRAVACHOL) tablet 40 mg 04/07/2019 09:00:00 AM EST 40 mg Oral active 40 mg, Oral, Mariana ly Standard, First dose on Sat04/07/19 at 0900, For 30 doses [facility] Medication administered onsite POLYETHYLENE GLYCOL 3350 [...] due to potential increased risk for aspiration.
[facility] Medication administered onsite sennosides, HALF-WAY 8.6 MG Oral Tablet senna 8.6 MG 2 tablet sen na 8.6 MG 2 tablet 04/06/2019 10:00:00 PM EST 2 {tbl} Oral active 2 tablet, Oral, Nightly, First dose on Sat04/06/19 at 2200, For 30 days [facility] Medication administered onsite OXcarbazepine (TRILEPTAL) tablet 450 mg 04/06/2019 09:00:0 0 PM EST 450 mg Oral aborted 450 mg, Oral, 2 Times Daily, First dose on Sat04/06/19 at 2100, For 30 days [facility] Medication administered onsite Fluoxetine 20 MG Oral Capsule fluoxetine (PROZAC) caps ule 20 mg fluoxetine (PROZAC) capsule 20 mg 04/06/2019 09:00:00 PM EST 20 mg Oral active 20 mg, Oral, 2 Times Daily, First dose (after last modification) on Sat04/06/19 at 2100, For 30 days [facility] Medication administered onsite heparin (porcine) 5000 UNIT/ML injection 5,000 Units [id number] 04/06/2019 09:00:00 PM EST 5000 U Subcutaneous active 5,000 Units, Subcutaneous, 2 Times Daily, First dose on Sat04/06/19 at 2100, For 30 days [facility] Medication administered onsite sulfamethoxazole-trimethoprim (BACTRIM) 340 [...] trimethoprim. This medication is located in the [facility] library as SMX/TMP
[facility] Medication administered onsite gabapentin 400 MG Oral Capsule gabapentin (NEURONTIN) capsule 1,200 mg gabapentin (NEURONTIN) capsule 1,200 mg 04/06/2019 05:00:00 PM EST 1200 mg Oral active 1,200 mg, Oral , Three Times Daily Standard, First dose on Sat04/06/19 at 1700, For 5 days [facility] Medication administered onsite ropinirole 1 MG Oral Tablet ropinirole (REQUIP) tablet 1 mg ropinirole (REQUIP) tablet 1 mg 04/06/2019 05:00:00 PM EST 1 mg Oral active 1 mg, Oral, Three Times Daily Standard, First dose on Sat04/06/19 at 1700, For 30 days [facility] Medication administered onsite Methylprednisolone 40 MG/ML Injectable S olution methylPREDNISolone sodium succinate (SOLU-MEDROL) injection 40 mg methylPREDNISolone sodium succinate (SOLU-MEDROL) injection 40 mg 04/06/2019 04:00:00 PM EST 40 mg I ntravenous aborted 40 mg, Intraveno us, Daily Standard, First dose on Sat04/06/19 at 1600, For 5 days [facility] Medication administered onsite iohexol (OMNIPAQUE) 350 MG/ML contrast injection 100 mL [id number] 04/06/2019 01:45:00 PM EST 100 mL Given by IV completed 100 mL, Given by IV, 1 TIME IMAGING, Sat04/06/19 at 1345, For 1 dose [facility] Medication administered onsite sodium chloride 0.9 % bolus 1,000 mL [id number] 04/06/2019 12:00: 00 PM EST 1000 mL Intravenous completed 1,000 mL , Intravenous, Once, Sat04/06/19 at 1200, For 1 dose [facility] Medication administered onsite sodium chloride 0.9 % bolus 1,000 mL [id number] 04/06/2019 11:30: 00 AM EST 1000 mL Intravenous completed 1,000 mL , Intravenous, Once, Sat04/06/19 at 1130, For 1 dose [facility] Medication administered onsite azithromycin (ZITHROMAX) 500 mg in sodium chloride 0.9 % 250 mL (2 mg/mL) IVPB 04/06/2019 10:45:00 AM EST 500 mg Intravenous aborte d 500 mg, Intravenous, at 250 mL/hr, Every 24 hours, First dose on Sat04/06/19 at 1045, For 5 days [facility] Medication administered onsite vancomycin (VANCOCIN) in D5W infusion 1,000 mg/200 mL (premi x) [id number] 04/06/2019 10:45:00 AM EST 1000 mg Intravenous aborted 1,000 mg, Intravenous, Administer over 60 Minutes, Every 12 hours, First dose on Sat04/06/19 at 1045, For 3 days
Please do not administer prior to blood culture
[facility] Medication administered onsite Piperacillin 3000 MG / tazobactam 375 MG Injection piperacillin-tazobactam (ZOSYN) IVPB 3.375 g (premix) piperacillin-tazobactam (ZOSYN) IVPB 3.3 75 g (premix) 04/06/2019 10:45:00 AM EST 3.375 g Intravenous abo rted 3.375 g, Intravenous, Administer over 4 Hours, Every 8 hours, First dose on Sat04/06/19 at 1045, For 7 days
Please do not administer prior to blood cultures
[facility] Medication administered onsite Morphine Sulfate 30 MG Extended Release Oral Tablet morphine sulfate ER (MS CONTIN) 12 hr tablet 30 mg morphine sulfate ER (MS CONTIN) 12 hr tablet 30 mg 04/06/2019 10:30:00 AM EST 30 mg Oral active 30 mg, Oral, Every 12 hours, First dose on Sat04/06/19 at 1030, For 7 days [facility] Medication administered onsite Acetaminophen 325 MG [...] mg from all sources in 24 hours.
[facility] Medication administered onsite Oxycodone Hydrochloride 5 [...] only) require Pain Service consultation and approval.
[facility] Medication administered onsite Albuterol 0.83 MG/ML Inhalant Solution a lbuterol (PROVENTIL) nebulizer solution 2.5 mg albuterol (PROVENTIL) nebulizer solution 2.5 mg 2018 09:15:00 AM EST 2.5 mg Nebulization completed 2 .5 mg, Nebulization, Once, Sat04/06/19 at 0915, For 1 dose
For Adults Q8 Hours is Hospital Standard, all orders will be changed to this unless NESHA is selected 'Yes' below.
[facility] Medication administered onsite NaCl infusion 0.9 % [id number] 04/06/2019 07:45:00 AM EST Intravenous aborted at 30 mL/hr, Intrave nous, Continuous, Starting Sat04/06/19 at 0745, For 30 days [facility] Medication administered onsite Famotidine 0.4 MG/ML [...] 30 min prior to start of infusion.
[facility] Medication administered onsite Morphine Sulfate 30 MG Extended Release Oral Tablet Morphine Sulfate ER 30 MG Oral Tablet Extended Release (MS CONTIN) Morphine Sulfate ER 30 MG Oral Tablet Extended Release (MS CONTIN) 03/26/2019 12:00:00 AM EST 30 mg Oral active Myofascial pain syndrome Take 1 tablet by mouth every 12 (twelve) hours , Max Daily Dose: 60 mg [facility] Myofascial pain syndrome Oxycodone Hydrochloride 5 MG Oral Tablet oxyCODONE HCl 5 MG Oral Tablet (ROXICODONE) oxyCODONE HCl 5 MG Oral Tablet (ROXICODONE) 03/26/2019 12:00:00 AM EST 5 mg Oral active Neck pain on left side Take 1 tablet by mouth every 3 (three) hours as needed for Pain, Max Daily Dose: 8 tablets [facility] Neck pain on left side 5 [...] 3 tablets by mouth Two Times Daily [facility] Prednisone 10 MG Oral Tablet Prednisone 02/05/2019 12:00:00 AM EDT ORAL completed [facility] ([facility], ) 1-0.05 % 01/28/2019 [...] tablets by mouth Three times frannie y [facility] 600 mg 08/29/2018 12:00:00 AM EDT tablet 180 TAKE TWO TABLETS BY MOUTH THREE TIMES A DAY TAKE TWO TABLETS BY MOUTH THREE TIMES A DAY SOLD: 08/03/2019 [facility] Ibuprofen 800 MG Oral Tablet ibuprofen (ADVIL,MOTRIN) 800 MG tablet ibuprofen (ADVIL,MOTRIN) 800 MG tablet 05/16/2018 12:00:00 AM EST 800 mg Oral aborted Take 800 mg by mouth Three times daily [facility] tizanidine 4 MG Oral Capsule tizanidine (ZANAFLEX) 4 M G capsule tizanidine (ZANAFLEX) 4 MG capsule 08/11/2017 12:00:00 AM EDT aborted TAKE ONE CAPSULE BY MOUTH THREE TIMES A DAY NEEDED FOR MUSCLE SPASMS (MAY TAKE EXTRA 4 MG AT NIGHT NEEDED) [facility] Albuterol Sulfate HFA 108 (90 Base) MCG/ ACT Inhalation Aerosol Solution (PROVENTIL HFA) 4523-2948-76 2 {puff} Inhalation aborted Inhale 2 puffs into the lungs every 6 (six) hours as needed for Wheezing or Shortness of Breath [facility] Prednisone 10 MG Oral Tablet predniSONE 10 MG Oral Tab let (DELTASONE) predniSONE 10 MG Oral Tablet (DELTASONE) 40 mg Oral aborted Take 40 mg by mouth daily [facility] Prednisone 10 MG Oral Tablet predniSONE 10 MG Oral Tab let (DELTASONE) predniSONE 10 MG Oral Tablet (DELTASONE) 10 mg Oral aborted Take 10 mg by mouth daily [facility] Amlodipine 5 MG Oral Tablet amlodipine (NORVASC) 5 MG tablet amlodipine (NORVASC) 5 MG tablet 5 mg Oral aborted Ta ke 5 mg by mouth daily. [facility] Insurance Providers Payer name Policy type / Coverage type Policy ID Covered democrat ID Covered democrat's relationship to gomez Policy Gomez Plan Information [facility] [id number] [id number] [facility] EMPIRE [place] DIV [id number] MEDICARE [id number] SP [id number] MEDICARE A [id number] Self [id number] EMPIRE PLAN [facility] U [id number] Spouse [id number] [facility] O [id number] S [id number] MEDICARE C [id number] S [id number] EXCELLUS BC [id number] Spo YLS [id number] MEDICARE [id number] Lily [id number] [facility] ([facility]) O [id number] S [id number] [facility] Medigap Part B [id number] Family Dependent [id number] Medicare Medicare Primary [id number] Self 3 [id number] [facility] Medigap Part B [id number] Family Dependent [id number] Medicare Medicare Primary [id number] Self 3 [id number] [employer] [facility] [id number] MEDICARE A [id number] Self [id number] A EXCELLUS BCBS [id number] Spo YLS [id number] BCBS [place] DIV UNAVAILABLE SP UNAVAILABLE MEDICARE [id number] SP [id number] A [employer] [id number] [id number] MEDICARE C [id number] S [id number] A [employer] O [id number] P [id number] [place] Medicare Primary Self [facility] [place] [facility] (HMO) Family Dependent BCBS [place] DIV [id number] HU2 [id number] [facility] Maintenance [facility] (HMO) Family Dependent [facility]IRE ([facility]) P UNAVAILABLE P UNAVAILABLE [facility] EMPIRE PLAN O [id number] U [id number] [employer] CHOICE O [id number] U [id number] Problems, Conditions, and Diagnoses Code Display Name Description Problem Type Effective Dates Data Source(s) Z02.89 Encounter for other administrative exami nations Encounter for other administrative examinations Diagnosis 04/12/2020 07:32:34 AM [facility] M54.2 Cervicalgia Cervicalgia Diagnosis 04/12/2020 07:32:34 AM [facility] M79.18 Myalgia, other site Myalgia, other site Diagnosis 1 04/23/2019 10:25:26 AM [facility] R06.2 Wheezing Wheezing Diagnosis 12/22/2019 02:33:09 PM ED [facility] M35.9 Systemic involvement of connective tissu e, unspecified Systemic involvement of connective tissue, unspecified Diagnosis 12/22/19 20 02:33:09 PM EDT [facility] telemed fol telemed fol Diagnosis 2019 08:12:18 AM [facility] J96.21 Acute and chronic respiratory failure wi th hypoxia Acute and chronic respiratory failure with hypoxia Diagnosis 10/23/2019 10:08:41 PM [facility] F17.210 Nicotine dependence, cigarettes, uncompl icated Nicotine dependence, cigarettes, uncomplicated Diagnosis 10/23/2019 07:46:33 PM EDT [facility] R00.0 Tachycardia, unspecified Tachycardia, unspecified Diag nosis 10/23/2019 07:46:33 PM EDT [facility] R50.9 Fever, unspecified Fever, unspecified Diagnosis 07:46:33 PM EDT [facility] J18.9 Pneumonia, unspecified organism Pneumonia, unspecified organism Diagnosis 10/23/2019 07:46:33 PM EDT [facility] R06.03 Acute respiratory distress Acute respiratory distress Diagnosis 10/23/2019 07:46:33 PM EDT [facility] Z20.828 Contact with and (suspected) exposure to other viral communicable diseases Contact with and (suspected) exposure to other viral communicable diseases Diagnosis 10/23/2019 07:46:33 PM EDT [facility] J96.90 Respiratory failure, unspeci fied, unspecified whether with hypoxia or hypercapnia Respiratory failure, unspecified, unspec ified whether with hypoxia or hypercapnia Diagnosis 10/23/2019 07:46:33 PM EDT [facility] SOB and fever SOB and fever Diagnosis 10/23/2019 07:46:33 PM EDT [facility] F17.200 Nicotine dependence, unspecified, uncomp licated Nicotine dependence, unspecified, uncomplicated Diagnosis 10/21/2019 01:16:39 PM EDT [facility] J45.991 Cough variant asthma Cough variant asthma Diagnosis 10/21/2019 11:52:59 AM EDT [facility] I21.4 Non-ST elevation (NSTEMI) myocardial inf arction Non-ST elevation (NSTEMI) myocardial inf Diagnosis 08/13/2019 09:56:[address] [facility] E78.5 Hyperlipidemia, unspecified Hyperlipidemia, unspecifie d Diagnosis 08/13/2019 09:56:[address] [facility] I27.20 Pulmonary hypertension, unspecified Pulmonary hy pertension, unspecified Diagnosis 08/13/2019 09:26:10 AM EDT [facility] R06.09 Other forms of dyspnea Other forms of dyspnea Diagnosi s 08/13/2019 09:26:[address] [facility] I50.32 Chronic diastolic (congestive) heart rahul lure Chronic diastolic (congestive) heart rahul Diagnosis 06/25/2019 09:20:48 AM EDT [facility] J96.01 Acute respirarory failure w/ hypo ezio J96.01 Acute respirarory failure w/ hypoxia Diagnosis 06/03/2019 12:46:57 PM [facility] hosp fol hosp fol Diagnosis 05/14/2019 08:06:[address] [facility] Acute respiratory failure with hypoxia Acute res piratory failure with hypoxia Diagnosis 04/09/2019 11:00:00 AM [facility] Trigeminal neuralgia Trigeminal neuralgia Diagnosis 04/09/2019 11:00:00 AM [facility] AP1 AP1 Diagnosis 04/09/2019 11:00:[address] [facility] R91.8 Other nonspecific abnormal finding of cathy ng field Other nonspecific abnormal finding of lung field Diagnosis 04/06/2019 04:32:01 PM [facility] G62.81 Critical illness polyneuropathy Critical illness polyneuropathy Diagnosis 04/06/2019 12:10:36 PM [facility] R65.20 Severe sepsis without septic shock Severe sepsis without septic shock Diagnosis 04/06/2019 12:10:36 PM [facility] A02.1 Salmonella sepsis Salmonella sepsis Diagnosis 04/06/2019 12:10:36 PM [facility] J96.01 Acute respiratory failure with hypoxia A cute respiratory failure with hypoxia Diagnosis 04/06/2019 10:46:13 AM [facility] I50.32 Chronic diastolic (congestive) heart rahul lure Chronic diastolic (congestive) heart failure Diagnosis 04/06/2019 10:46:04 AM [facility] Surgeries/Procedures Procedure Description Date Indications Data Source(s) COMPLETE PFT'S, PRE & POST BRONCHODILATOR (SPIROMETRY, LUNG VOLUMES, D <td><content ID="[id number]">COMPLETE PFT'S, PRE & POST BRONCHODILATOR (SPIROMETRY, LUNG VOLUMES, D</content></td><td>Routine</td><td>02/26/2020 8:10 AM EST</td><td><paragraph>Ground glass opacity present on imaging of lung</paragraph></td><td></td> 02/26/2020 08:10:59 AM EST Ground glass opacity present on imaging of lung [facility] Ground glass opacity present on imaging of lung SEDIMENTATION RATE RBC AUTOMATED SEDIMENTATION RATE, AUTOMATED Routine 12/22/2019 4:23 PM EDT Autoimmune disease 12/22/2019 04:23:00 PM EDT Autoimmune disease [facility] Autoimmune disease BLOOD COUNT COMPLETE AUTO&AUTO DIFRNTL WBC COUNT CBC AND DIFFER ENTIAL Routine 12/22/2019 4:23 PM EDT Autoimmune disease 12/22/2019 04:23:00 PM EDT Autoimmune disease [facility] Autoimmune disease RHEUMATOID FACTOR QUANTITATIVE RHEUMATOID FACTOR Routine 12/22/2019 4:23 PM EDT Autoimmune disease 12/22/2019 04:23:00 PM EDT Autoimmune disease [facility] Autoimmune disease CREATINE KINASE TOTAL CK Routine 12/22/2019 4:23 P M EDT Autoimmune disease 12/22/2019 04:23:00 PM EDT Autoimmune disease [facility] Autoimmune disease PROTHROMBIN TIME PROTIME INR Routine 10/28/2019 5:54 AM EDT 10/28/2019 09:54:00 AM EDT [facility] BLOOD COUNT COMPLETE AUTO&AUTO DIFRNTL WBC COUNT CBC AND DIFFER ENTIAL Routine 10/28/2019 5:54 AM EDT 10/28/2019 09:54:00 AM EDT [facility] BLOOD COUNT COMPLETE AUTO&AUTO DIFRNTL WBC COUNT CBC AND DIFFER ENTIAL Routine 10/27/2019 3:57 AM EDT 10/27/2019 07:57:00 AM EDT [facility] IAADI PNEUMOCUSTIS CARINII PNEUMOCYSTIS SMEAR BY DFA Routine 10/26/2019 5:05 PM EDT 10/26/2019 09:05:00 PM EDT [facility] VIRUS TISS CUL INOCULATION CYTOPATHIC EFFECT GENERAL VIRAL CULT URE Routine 10/26/2019 4:50 PM EDT 10/26/2019 08:50:00 PM EDT [facility] 1/2 NODE STATION/STRUX [facility] EBUS GUIDED SAMPL 1/2 NODE STATION/STRUX 10/26/2019 2:08 PM EDT acute hypoxic respiratory failure 10/26/2019 06:08:00 PM EDT - 10/26/2019 06:45:00 PM EDT [facility] BRONCHOSCOPY, RIGID/FLEX, W/WO FLUORO GUID W/BRONCHIAL ALVEOLAR LAVAGE BRONCHOSCOPY, RIGID/FLEX, W/WO FLUORO GUID W/BRONCHIAL ALVEOLAR LAVAGE 10/26/2019 2:08 PM EDT acute hypoxic respiratory failure 10/26/2019 06:08:00 PM EDT - [facility]TE AUTO&AUTO DIFRNTL WBC COUNT CBC AND DIFFER ENTIAL Routine 10/26/2019 4:52 AM EDT 10/26/2019 08:52:00 AM EDT [facility] BASIC METABOLIC PANEL CALCIUM TOTAL BASIC METABOLIC PANEL Routi ne 10/26/2019 4:52 AM EDT 10/26/2019 08:52:00 AM EDT [facility] CYTOLOGY NON GYNECOLOGICAL CYTOLOGY NON GYNECOLOGICAL Routine 10/26/2019 12:00 AM EDT 10/26/2019 04:00:00 AM EDT [facility] PROCALCITONIN (PCT) PROCALCITONIN Routine 10/25/2019 3:03 AM EDT 10/25/2019 [facility]03[facility] COMPLETE AUTO&AUTO DIFRNTL WBC COUNT CBC AND DIFFER ENTIAL Routine 10/25/2019 3:03 AM EDT 10/25/2019 07:03:00 AM [facility] ANGIOTENSIN I-CONVERTING ENZYME ANGIOTENSIN CONVERTING ENZYME R outine 10/25/2019 3:03 AM EDT 10/25/2019 07:03:00 AM [facility] CALCIUM IONIZED CALCIUM, IONIZED Routine 10/25/2019 3:03 AM EDT 10/25/2019 07:03:00 AM [facility] BASIC METABOLIC PANEL CALCIUM TOTAL BASIC METABOLIC PANEL Routi ne 10/25/2019 3:03 AM EDT 10/25/2019 07:03:00 AM EDT [facility] IADNA S AUREUS AMPLIFIED PROBE TQ STAPH AUREUS MRSA PCR Routine 10/24/2019 11:52 AM EDT 10/24/2019 03:52:00 PM EDT [facility] CT THORAX W/O CONTRAST MATERIAL CT THORAX WITHOUT CONTRAST 7125 0 Routine 10/24/2019 6:10 AM EDT 10/24/2019 10:10:00 AM [facility] PROCALCITONIN (PCT) PROCALCITONIN Routine 10/24/2019 3:39 AM EDT 10/24/2019 07:39:00 AM [facility] BLOOD COUNT COMPLETE AUTO&AUTO DIFRNTL WBC COUNT CBC AND DIFFER ENTIAL Routine 10/24/2019 3:39 AM EDT 10/24/2019 07:39:00 AM [facility] TROPONIN QUANTITATIVE TROPONIN T Timed 10/24/2019 3:39 AM EDT 10/24/2019 07:39:00 AM [facility] THYROID STIMULATING HORMONE TSH TSH Routine 10/24/2019 3:39 AM EDT 10/24/2019 07:39:00 AM [facility] PHOSPHORUS INORGANIC PHOSPHORUS LEVEL Routine 10/24/2019 3:39 AM E DT 10/24/2019 07:39:00 AM [facility] MAGNESIUM MAGNESIUM LEVEL Routine 10/24/2019 3:39 AM EDT 10/24/2019 07:39:00 AM [facility] LACTATE LACTIC ACID LEVEL, PLASMA STAT 10/24/2019 3:39 AM EDT 10/24/2019 07:39:00 AM [facility] CALCIUM IONIZED CALCIUM, IONIZED Routine 10/24/2019 3:39 AM EDT 10/24/2019 07:39:00 AM [facility] BASIC METABOLIC PANEL CALCIUM TOTAL BASIC METABOLIC PANEL Routi ne 10/24/2019 3:39 AM EDT 10/24/2019 07:39:00 AM EDT [facility] GLUCOSE QUANTITATIVE BLOOD XCPT REAGENT STRIP POCT GLUCOSE, DOC KED Routine 10/23/2019 11:24 PM EDT 10/24/2019 03:24:00 AM [facility] BLOOD GASES ANY COMBINATION PH PCO2 PO2 CO2 HCO3 BLOOD GAS, ART ERIAL STAT 10/23/2019 10:19 PM EDT 10/24/2019 02:19:00 AM [facility] FIBRIN DGRADJ PRODUCTS D-DIMER QUAL/SEMIQUAN D-DIMER, QUANTITAT ADALGISA Routine 10/23/2019 8:14 PM EDT 10/24/2019 12:14:00 AM [facility] EKG ED PHYSICIAN INTERPRETATION EKG ED PHYSICIAN INTERPRETATION Routine 10/23/2019 8:12 PM EDT 10/24/2019 12:12:38 AM [facility] XR CHEST FRONTAL ONLY 70782 XR CHEST FRONTAL ONLY [id number] STAT 10/23/2019 8:11 PM EDT 10/24/2019 12:11:11 AM EDT [facility] COVID-19 PCR [facility] COVID-19 PCR STAT 10/23/2019 8:11 PM EDT 10/24/2019 [facility] NATRIURETIC PEPTIDE PROBNP STAT 10/23/2019 8:11 PM EDT 10/24/2019 [facility] CULT[facility] BACTERIAL BLOOD AEROBIC W/ID ISOLATES BLOOD CULTURE S TAT 10/23/2019 8:11 PM EDT 10/24/2019 12:11:00 AM EDT [facility] CULTURE BACTERIAL BLOOD AEROBIC W/ID ISOLATES BLOOD CULTURE S TAT 10/23/2019 8:11 PM EDT 10/24/2019 12:11:00 AM EDT [facility] BLOOD COUNT COMPLETE AUTO&AUTO DIFRNTL WBC COUNT CBC AND DIFFER ENTIAL STAT 10/23/2019 8:11 PM EDT 10/24/2019 12:11:00 AM [facility] BASIC METABOLIC PANEL CALCIUM TOTAL BASIC METABOLIC PANEL STAT 10/23/2019 8:11 PM EDT 10/24/2019 12:11:00 AM EDT [facility] BASIC METABOLIC PANEL CALCIUM IONIZED POCT ISTAT CHEM8 Routine 10/23/2019 8:08 PM EDT 10/24/2019 12:08:00 AM EDT [facility] BLOOD GASES ANY COMBINATION PH PCO2 PO2 CO2 HCO3 POCT ISTAT ABG /LAC Routine 10/23/2019 8:05 PM EDT 10/24/2019 12:05:00 AM [facility] TROPONIN QUANTITATIVE POCT ISTAT TROPONIN Routine 10/23/2019 8:03 PM EDT 10/24/2019 12:03:00 AM [facility] EKG 12-LEAD - CMAXX REPORT EKG 12-LEAD - CMAXX REPORT 10/23/2019 8:00 PM EDT 10/24/2019 12:00:41 AM EDT [facility] EKG 12-LEAD - CMAXX REPORT EKG 12-LEAD - CMAXX REPORT 10/23/2019 8:00 PM EDT 10/24/2019 12:00:41 AM EDT [facility] EKG 12-LEAD EKG 12-LEAD STAT 10/23/2019 8:00 PM EDT 10/24/2019 [facility] - CMAXX REPORT EKG 12-LEAD - CMAXX REPORT 10/23/2019 8:00 PM EDT 10/24/2019 12:00:00 AM EDT [facility] XR CHEST FRONTAL ONLY [id number] XR CHEST FRONTAL ONLY [id number] STAT 06/03/2019 4:48 PM EST 06/03/2019 09:48:27 PM EST [facility] OTHER BEDSIDE PROCEDURE OTHER BEDSIDE PROCEDURE Routine 06/03/2019 3:19 PM EST Chronic diastolic (congestive) heart failure 06/03/2019 08:1 9:42 PM EST Chronic diastolic (congestive) heart failure [facility] Chronic diastolic (congestive) heart rahul lure CENTRAL LINE CENTRAL LINE Routine 06/03/2019 3:17 PM EST Chronic diastolic (congestive) heart failure Ground glass opacity present on imaging of lung 06/03/2019 0 8:17:37 PM EST Ground glass opacity present on imaging of lungChronic diastolic (congestive) [facility] failure [facility] Ground glass opacity present on imaging of lung Chronic diastolic (congestive) heart rahul lure CARDIAC CATH PROCEDURE LOG CARDIAC CATH PROCEDURE LOG 06/03/2019 1:58 PM EST 06/03/2019 06:58:56 PM EST [facility] BARROW WORKER HELPER PROCEDURE BARROW WORKER HELPER PROCEDURE Routine 06/03/2019 1:[address] 06/03/2019 06:57:23 PM [facility] BLOOD COUNT HEMOGLOBIN HEMOGLOBIN STAT 06/03/2019 1:46 PM EST 06/03/2019 06:46:[address] [facility] [address] THORAX W/O CONTRAST MATERIAL CT THORAX WITHOUT CONTRAST 7125 0 STAT 05/15/2019 1:58 PM EST Acute respiratory failure with hypoxia Ground glass opacity present on imaging of lung 05/15/2019 0 6:58:15 PM EST Ground glass opacity present on imaging of lungAcute respiratory failure with hypoxia [facility] Ground glass opacity present on imaging of lung Acute respiratory failure with hypoxia XR CHEST FRONTAL ONLY 36104 XR CHEST FRONTAL ONLY [id number] STAT 04/09/2019 10:00 AM EST 04/09/2019 03:00:00 PM EST [facility] BLOOD COUNT COMPLETE AUTO&AUTO DIFRNTL WBC COUNT CBC AND DIFFER ENTIAL Routine 04/09/2019 4:31 AM EST 04/09/2019 09:31:00 AM [facility] PHOSPHORUS INORGANIC PHOSPHORUS LEVEL Routine 04/09/2019 4:[address] 04/09/2019 09:31:00 AM [facility] MAGNESIUM MAGNESIUM LEVEL Routine 04/09/2019 4:31 AM EST 04/09/2019 09:31:00 AM [facility] BASIC METABOLIC PANEL CALCIUM TOTAL BASIC METABOLIC PANEL Routi ne 04/09/2019 4:31 AM EST 04/09/2019 09:31:00 AM [facility] BLOOD COUNT COMPLETE AUTO&AUTO DIFRNTL WBC COUNT CBC AND DIFFER ENTIAL Routine 04/08/2019 5:19 AM EST 04/08/2019 10:19:00 AM [facility] PHOSPHORUS INORGANIC PHOSPHORUS LEVEL Routine 04/08/2019 5:[address] 04/08/2019 10:19:00 AM [facility] MAGNESIUM MAGNESIUM LEVEL Routine 04/08/2019 5:19 AM EST 04/08/2019 10:19:00 AM [facility] BASIC METABOLIC PANEL CALCIUM TOTAL BASIC METABOLIC PANEL Routi ne 04/08/2019 5:19 AM EST 04/08/2019 10:19:00 AM [facility] INPATIENT HOME O2 EVALUATION FOR DISCHARGE INPATIENT HOME O2 EVALUATION FOR DISCHARGE Routine 04/07/2019 3:20 PM EST 04/07/2019 08:20 :00 PM [facility] ECHO TTHRC R-T 2D W/WOM-MODE COMPL SPEC&COLR DOP ECHOCARDIO GRAM 2D COMPLETE Routine 04/07/2019 11:14 AM EST 04/07/2019 04:14:24 PM [facility] PROTHROMBIN TIME PROTIME INR Routine 04/07/2019 6:28 AM EST 04/07/2019 11:28:00 AM [facility] BLOOD COUNT COMPLETE AUTO&AUTO DIFRNTL WBC COUNT CBC AND DIFFER ENTIAL Routine 04/07/2019 6:28 AM EST 04/07/2019 11:28:00 AM [facility] PHOSPHORUS INORGANIC PHOSPHORUS LEVEL Routine 04/07/2019 6:[address] 04/07/2019 11:28:00 AM [facility] MAGNESIUM MAGNESIUM LEVEL Routine 04/07/2019 6:28 AM EST 04/07/2019 11:28:00 AM [facility] BASIC METABOLIC PANEL CALCIUM TOTAL BASIC METABOLIC PANEL Routi ne 04/07/2019 6:28 AM EST 04/07/2019 11:28:00 AM [facility] VIRUS TISS CUL INOCULATION CYTOPATHIC EFFECT GENERAL VIRAL CULT URE Routine 04/06/2019 7:02 PM EST 04/07/2019 12:02:00 AM [facility] CUL BACT XCPT URINE BLOOD/STOOL AEROBIC ISOL LEGIONEL LA CULTURE RESPIRATORY SPECIMEN Routine 04/06/2019 7:02 PM EST 04/07/2019 12:02 :00 AM [facility] CONCENTRATION INFECTIOUS [employer]ENTS AFB CULTURE Routine 04/06/2019 7 :02 PM EST 04/07/2019 12:02:00 AM [facility] IAADI PNEUMOCUSTIS CARINII PNEUMOCYSTIS SMEAR BY DFA Routine 04/06/2019 7:02 PM EST 04/07/2019 12:02:00 AM [facility] CUL BACT XCPT URINE BLOOD/STOOL AEROBIC ISOL SPUTUM CULTURE Ro utine 04/06/2019 7:02 PM EST 04/07/2019 12:02:00 AM [facility] IADNA MYCOPLSM PNEUMONIAE AMPLIFIED PROBE TQ MYCOPLASMA PNEUMON IAE PCR Routine 04/06/2019 7:02 PM EST 04/07/2019 12:02:00 AM [facility] CULTURE FNGI MOLD/YEAST PRSMPTV OTH XCPT BLOOD FUNGUS CULTURE Routine 04/06/2019 7:02 PM EST 04/07/2019 12:02:00 AM [facility] CUL BACT XCPT URINE BLOOD/STOOL AEROBIC ISOL HC BAL CULTURE Ro utine 04/06/2019 7:00 PM EST 04/07/2019 12:00:00 AM [facility] VIRUS TISS CUL INOCULATION CYTOPATHIC EFFECT GENERAL VIRAL CULT URE Routine 04/06/2019 7:00 PM EST 04/07/2019 12:00:00 AM [facility] CUL BACT XCPT URINE BLOOD/STOOL AEROBIC ISOL LEGIONEL LA CULTURE RESPIRATORY SPECIMEN Routine 04/06/2019 7:00 PM EST 04/07/2019 12:00 :00 AM [facility] [employer]B CULTURE Routine 04/06/2019 7 :00 PM EST 04/07/2019 12:00:00 AM [facility] IAADI PNEUMOCUSTIS CARINII PNEUMOCYSTIS SMEAR BY DFA Routine 04/06/2019 7:00 PM EST 04/07/2019 12:00:00 AM [facility] IADNA MYCOPLSM PNEUMONIAE AMPLIFIED PROBE TQ MYCOPLASMA PNEUMON IAE PCR Routine 04/06/2019 7:00 PM EST 04/07/2019 12:00:00 AM [facility] CULTURE FNGI MOLD/YEAST PRSMPTV OTH XCPT BLOOD FUNGUS CULTURE Routine 04/06/2019 7:00 PM EST 04/07/2019 12:00:00 AM [facility] GLUCOSE QUANTITATIVE BLOOD XCPT REAGENT STRIP POCT GLUCOSE, DOC KED Routine 04/06/2019 6:45 PM EST 04/06/2019 11:45:00 PM [facility] BRONCHOSCOPY, RIGID/FLEX, W/WO FLUORO GUID W/WO CELL WASHING (SEP PROC) BRONCHOSCOPY, RIGID/FLEX, W/WO FLUORO GUID W/WO CELL WASHING (SEP PROC) 04/06/2019 4:45 PM EST hypoxic respiratory failure 04/06/2019 09:45:00 PM EST - 04/06/2019 10:10:00 PM [facility] BLOOD GASES ANY COMBINATION PH PCO2 PO2 CO2 HCO3 BLOOD GAS, ART ERIAL Routine 04/06/2019 3:47 PM EST 04/06/2019 08:47:[address] [facility] [address] ANGIOGRAPHY CHEST W/CONTRAST/[place] [address] STAT 04/06/2019 1:35 PM EST 04/06/2019 06:35:00 PM [facility] CUL BACT XCPT URINE BLOOD/STOOL AEROBIC ISOL LEGIONEL LA CULTURE RESPIRATORY SPECIMEN Routine 04/06/2019 12:20 PM EST 04/06/2019 05:20 :00 PM [facility] CUL BACT XCPT URINE BLOOD/STOOL AEROBIC ISOL SPUTUM CULTURE ST AT 04/06/2019 12:20 PM EST 04/06/2019 05:20:00 PM [facility] IAAD EIA MULT STEP METHOD NOS EACH ORGANISM LEGIONELLA ANTIGEN, URINE Routine 04/06/2019 12:20 PM EST 04/06/2019 05:20:00 PM [facility] RESPIRATORY PANEL RESPIRATORY PANEL Routine 04/06/2019 12:07 PM EST 04/06/2019 05:07:00 PM [facility] CUL PRSMPTV PTHGNC ORGANISM SCRN W/COLONY ESTIMJ MRSA CULTURE Routine 04/06/2019 12:07 PM EST 04/06/2019 05:07:00 PM [facility] SEPSIS WORKUP SEPSIS WORKUP Routine 04/06/2019 12:00 PM EST Sepsis due to Salmonella species with critical illness polyneuropathy, unspecified whether septic shock present 04/06/2019 05:00:29 PM EST Sepsis due to Salmonella species with critical illness polyneuropathy, unspecified whether septic shock present [facility] Sepsis due to Salmonella species with cr itical illness polyneuropathy, unspecified whether septic shock present IAAD EIA HIV-1 AG W/HIV-1&HIV-2 ANTBDY SINGLE HIV AG AB COMBO S CREEN Routine 04/06/2019 11:46 AM EST 04/06/2019 04:46:00 PM [facility] NATRIURETIC PEPTIDE PROBNP Routine 04/06/2019 11:46 AM EST 04/06/2019 04:46:00 PM [facility] TROPONIN QUANTITATIVE TROPONIN T Routine 04/06/2019 11:46 AM EST 04/06/2019 04:46:00 PM [facility] LACTATE LACTIC ACID LEVEL, PLASMA Routine 04/06/2019 11:46 AM EST 04/06/2019 04:46:00 PM [facility] EKG 12-LEAD - CMAXX REPORT EKG 12-LEAD - CMAXX REPORT 04/06/2019 11:28 AM EST 04/06/2019 04:28:35 PM [facility] EKG 12-LEAD - CMAXX REPORT EKG 12-LEAD - CMAXX REPORT 04/06/2019 11:28 AM EST 04/06/2019 04:28:35 PM [facility] EKG 12-LEAD EKG 12-LEAD Routine 04/06/2019 11:28 AM EST 04/06/2019 04:28:35 PM [facility] CULTURE BACTERIAL BLOOD AEROBIC W/ID ISOLATES BLOOD CULTURE S TAT 04/06/2019 10:41 AM EST 04/06/2019 03:41:00 PM [facility] CULTURE BACTERIAL BLOOD AEROBIC W/ID ISOLATES BLOOD CULTURE S TAT 04/06/2019 10:37 AM EST 04/06/2019 03:37:00 PM [facility] GLUCOSE QUANTITATIVE BLOOD XCPT REAGENT STRIP POCT GLUCOSE, DOC KED Routine 04/06/2019 9:39 AM EST 04/06/2019 02:39:00 PM [facility] BLOOD COUNT COMPLETE AUTO&AUTO DIFRNTL WBC COUNT CBC AND DIFFER ENTIAL Routine 04/06/2019 9:17 AM EST 04/06/2019 02:17:00 PM [facility] PHOSPHORUS INORGANIC PHOSPHORUS LEVEL Routine 04/06/2019 9:[address] 04/06/2019 02:17:00 PM [facility] MAGNESIUM MAGNESIUM LEVEL Routine 04/06/2019 9:17 AM EST 04/06/2019 02:17:00 PM [facility] COMPREHENSIVE METABOLIC PANEL COMPREHENSIVE METABOLIC PANEL Rou blu 04/06/2019 9:17 AM EST 04/06/2019 02:17:00 PM [facility] XR CHEST FRONTAL ONLY 96275 XR CHEST FRONTAL ONLY 11771 Routine 04/06/2019 9:03 AM EST 04/06/2019 02:03:19 PM [facility] BRONCHOSCOPY REPORT BRONCHOSCOPY REPORT 04/06/2019 12:00 AM EST 04/06/2019 05:00:00 [facility] Results ID Date Data Source [id number] 04/12/2020 02:57:37 PM [facility] Name Value Range Interpretation Code Description Data Mellissa rce(s) Supporting Document(s) Progress Note [facility] [id number]/OMOhvWBScw9BfVZnvZRu5UNyaENJbP6CnQZU8pB3bGVD0HKgEWjFhKcVvRJB0 lbm [file] [id number]= ID Date Data Source [id number] 02/28/2020 09:24:31 PM [facility] Name Value Range Interpretation Code Description Data Mellissa rce(s) Supporting Document(s) Progress Note [facility] [id number]/WGFxnDABld1JuMUzpDHr9DYbcQBAsP8LwHJF3tT3pWWM1LZuJDyMlYhOhVLQl lbm [file] ZVTSSAbLQ7idSIJTo0JWnOxFUWV5HOxU9uDGDCqqMi WMTa9PkhaYiDMKNL6XmXi8BunMDCtkwvdpxkbzIROFYfd3LgTWU9xcbTozQzbtS/BQZFXNTX2lsMPoj7 CrM6gJxRq8C1qiiIynBwSsZMnFhjlnAxffNIQwVIYSZmFiSHfrWiGY4sAp0DmmucYtkeQQchJMMMDpA0 iChTE7FjqgPeq0CLBKNhoiZqTwLIS3kOEatGvDnrBz 8ND+6z8VxVPnpP9+DcRnrgulPaEZ0PjlcWj1sfiByR1LXWM5jDovCIcRVXLggwKloR6tRXecZ5HWZhBG Tc7LLzdEJ+mI/nUK1dr7Wv3lsjLzFcvXkgTQ9mzEDM7WXY0ScomTK8kXqSDWfE6czEGE0801nUfjggbx Zs4KrCi5+ax0/U8fr+qYOzaGpE5DLeaLPEE4D9jnoq 2jW63arOp+NuyeVjhqhoRdMWh/cyQ2qGOy9agTHCYibvQLaSj90KiyCpN2uBwuhR/klXQ5rP7T0e2A8F AVQk3+Oyq6QPmdYdeX1O8DQ8uzz6mSfBrl6U9Ju3RDJyxNXyFKdZDlLwBrTzCGHBlbYpX8Km7XGbw/KO Product Marketing Specialist/[id number]/[id number] [file] [id number] ID Date Data Source [id number] 02/23/2020 07:22:48 AM EST [facility] Name Value Range Interpretation Code Description Data Mellissa rce(s) Supporting Document(s) Progress Note [facility] ULFYMw3pLoQBZxVw50/LINvzTDLer8SzHFnfZXg2MTcbRMBiP0XoJNP3fI5xPOZ6FTfIGbStNhGfNFN4 lbm [file] kEZIULrTCyrpp9Lw4bb4wjnKCJM1EkM6t4iZ0kB0YkbnQbrrzRUTTfm/Fpzg5J5a7rtAwkGh+OeCx/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 [file] AgICAgICAgICAgICAgICAgICAgICAgICAgICAgICAgICAgICAgICAgICAgICAgICAgICAgICAgICAgIC AgICAgICAgICAgICAgICAgICAgICAgICAgICAgICAgICAgICANCiAgICAgICAgICAgICAgICAgICAgIC AgICAgICAgICAgICAgICAgICAgICAgICAgICAgICAg ICAgICAgICAgICAgICAgICAgICAgICAgICAgICAgICAgICAgICAgICAgICAgICANCiAgICAgICAgICAg ICAgICAgICAgICAgICAgICAgICAgICAgICAgICAgICAgICAgICAgICAgICAgICAgICAgICAgICAgICAg ICAgICAgICAgICAgICAgICAgICAgICAgICAgICANCi AgICAgICAgICAgICAgICAgICAgICAgICAgICAgICAgICAgICAgICAgICAgICAgICAgICAgICAgICAgIC AgICAgICAgICAgICAgICAgICAgICAgICAgICAgICAgICAgICAgICANCiAgICAgICAgICAgICAgICAgIC AgICAgICAgICAgICAgICAgICAgICAgICAgICAgICAg ICAgICAgICAgICAgICAgICAgICAgICAgICAgICAgICAgICAgICAgICAgICAgICAgICANCiAgICAgICAg ICAgICAgICAgICAgICAgICAgICAgICAgICAgICAgICAgICAgICAgICAgICAgICAgICAgICAgICAgICAg ICAgICAgICAgICAgICAgICAgICAgICAgICAgICAgIC ANCiAgICAgICAgICAgICAgICAgICAgICAgICAgICAgICAgICAgICAgICAgICAgICAgICAgICAgICAgIC AgICAgICAgICAgICAgICAgICAgICAgICAgICAgICAgICAgICAgICAgICANCiAgICAgICAgICAgICAgIC AgICAgICAgICAgICAgICAgICAgICAgICAgICAgICAg ICAgICAgICAgICAgICAgICAgICAgICAgICAgICAgICAgICAgICAgICAgICAgICAgICAgICANCiAgICAg ICAgICAgICAgICAgICAgICAgICAgICAgICAgICAgICAgICAgICAgICAgICAgICAgICAgICAgICAgICAg ICAgICAgICAgICAgICAgICAgICAgICAgICAgICAgIC AgICANCiAgICAgICAgICAgICAgICAgICAgICAgICAgICAgICAgICAgICAgICAgICAgICAgICAgICAgIC AgICAgICAgICAgICAgICAgICAgICAgICAgICAgICAgICAgICAgICAgICAgICANCjw/cMKnK7chqKYgqr H0A9wkEl3DKl1XTT9my1ClHIRsTYzaycGlXamNVaQd BQJdPxfOQzn0ZRpqFQ3ScQGcW7DsY4NtIJqwBZ5SRYBvMBJwlUWpWBKyEDYdSiI4XWPeVPnkUB9AyGZb RNtsMIJmRGBfUpDlIKGwRI1LVRTlT587bjAbRu6DFf2HBnJlRF8oui0UCqEwUNQeHrxNAgb0TZpdUQ4W aEOrbZIgIyBhSLJLGrAhA6jyv0BrAvCiGVDMYCogCA 0Jm1YdiZKgKCq+Eo0MXV4ey2KjIAmdNnGlLZ6bce3USPxQUuZoC1IiaJjlUVYcc4eoKIOlLW3qgGMlLN D2OZh3otjtTWFuISttNJYRHTEdmXKpUI2bGx8qJKJeDHKwXkJrZZGLMC5NTYTyDPDqrSKlBVKkBUNHTR 5ZPSbePWM1HBQeobCtgIRjMUpzJI3CGJYmnkTmMrSh MCBSDQo+Yx6RRB8gb8WgSWsdItEuGP9dlq9ZOIlQAfDgV8L9xCKmO5A9GUzrPz4VYRIyTIMiEDlqJUXE NOkeTA4ZSH2vdoO3OH0XvQPqNRNdPYSkeKJfPPz4N25tgFLaNSzqJA9LGYT+Isiha+Hp2RKBOmKNHvJMCe ZwExWWYUIrHyP3FcS5XAj8XnB8ExGI59uEsamyWpTL tkBU9IYA8aWYTwWDVEOC4BlAEdoV1dyuTgHLViBOPYXcCpE26vbIVtMNXwTHYgPPCpRy4RBPLgY9Qalx TryVeikqIwJCElMBGXXK3PVTsubwRhyRHfePspAS89bHxhRA1QXo5TKcKvGG8ppm3LqYWtXw1PCQVeVN 6VGXRkJMSkSZRpYJS7KNUqEwKfBXgkHBViWBViVPT8 JGLuANXqPG7ZSrCeUDEkYMr0JBfgIKRoLGNxkr7CTYDkXHZzMCVoPBKzNAYoRCLqBXrxNGPiMDAyHDU4 YEYpLFTuQR0JGeFyCPKkFVG8PrbeKDAlVGNaog8QTTVxUIYjJld3IxPdTIXxJJVlPYilXLKkHEF1UbNi DWOcIXOzNV5WCnLzTNJdNBO5VCDxUTPlKGSghx0CCM LdLTKzBLS9KEFtYMUpZTXsCJppBFMvWTS0QozyXKEtDJLhLD1XWiUdFASlADE8FVWkBTNwTBVqwz6UDS LbXTKiRwcyOXEeYLRxFDJxWRmtZNLwHQP8QJNdVTElCHIpCM4VWnQuNDFmYNiqDJKzKOHaQPOesn0HGX WlQFVyOXH1TzBvRAEfZRUhRBqtYYFzAMG3DBjrYFYb BADrXC1ZBqSfKEQcEOoxGKBtSEBoDZMzqx9KQIPgGFDgQUPdXJCwGQVfNBWeTQiiJLMhJJN7EOU9JRHc AWVvLR2YNjMuJZDaEZx0QoelFKOdWKPjrr1EZKNoHYCoFZAlJvSxEQAkEGBmDWndXKErDNYeSeayCEAc PYVeGH8LLiJbQJCwIuR2SbSqPMUvDDHhoa0ZoUDpeU brji1CDOyLQn8OiGuvVUY8YBdsFl2juTMdSnIzCHBRNm9BqjQmGDJtHSGSBZgbWNXdABNuFlRdOLLrEL C9KkqaCCWfNtNiFxSaOQFpIKAcKzA4LjZ0CQLlZZOgZEU7DuD1UZCpWQIzGSKtUZVaZgLdJxS2JVg+IF 0gDQo+Bz0Wo7SiibD0bbPlDAdhJQy6FC7OJKQCD9ZXUf== ID Date Data Source [id number] 02/17/2020 02:00:00 PM EST [facility] Name Value Range Interpretation Code Description Data Mellissa rce(s) Supporting Document(s) SARS coronavirus 2 RNA [facility] This lab was ordered by [facility] and reported by [email or web address]. ID Date Data Source [id number] 12/29/2019 05:30:11 PM EDT [facility] Name Value Range Interpretation Code Description Data Mellissa rce(s) Supporting Document(s) Progress Note [facility] HWHFUw1nNpWFAfJt46/NCRspNVNdg7UqWPjvJSv5ZTawYIMrL6ZhCNI6xC7mXTF1IXrAJpXaMiTcBBPl lbm TgYxuOGtXbOQZzOhbATzFiUCgkMikfjKDuKS2GuUG2USSiK79iCXWaSHOsK4DyCWNqNbT+Fs8LCLIsbH RbYN1BJobL4P8atys5Sy4/SI4ClKLUTNDUy95EGtecPspQ1DczzITYsVoOPr+iCWXelQ3y+tvPSrtrec hlG3hwEGeWjYco0YEV5LLjDILRDX/4qBQP14QoI/t3 +qOMQJWqnR54u6lJn56jmbyaxPHg3PeEXAOG6y+ufb/Je58f9KxxhAw0u+gSYoTGzhdEX7KlL332XatM p1BE7b2YePStc6e+iqu7kve/9gPr8/Pnpv+I8s7xP6A4tO5My069FDulOIKCmT3Y4m5iNcQaMp9kTi3K VQft+0uLD2MGj4Mm7Oesr0dJ0CxHFR+klr7NtJ7hyR Nd+Clsp+vUmfflKslCElpd5KFfNGFFp5e+XxbB1Zx2hMjc8x9jkVB4LwwxA3bZ0PjTtTM/0ZfSkm/MEO ezP+VEDMBz1WjSP0VN8l6wPesbCi/HkrmQssaqzVU0npko8VInbwOIMdgr7xopV0+VcPbQZLwgihaTeX GfGa1cNvr8PlBy0WpoPUefIKgkkAYFu7IH49q2RNnn QYfrU4U4bMYtjONhp+p8530e2V0lYs+9lxxjn+hX7CbGh82puTEdMzkc5vqTmnO30rwhfDl1oCMYkrCj JJJI2K3io7rjfs84+OmyersAvACuPWWfZ2qOESo0lSBCLiNRXDJqqwVo+dVIUfTlwHNicW3/ZRgFaWdO dRd0025aT56yR+1tp3i2S2Q63erts1AYOV3lbD32Xv [file] AgICAgICAgICAgICAgICAgICAgICAgICAgICAgICAg ICAgICAgICAgICAgICAgICAgICAgICAgICAgICANCiAgICAgICAgICAgICAgICAgICAgICAgICAgICAg ICAgICAgICAgICAgICAgICAgICAgICAgICAgICAgICAgICAgICAgICAgICAgICAgICAgICAgICAgICAg ICAgICAgICAgICANCiAgICAgICAgICAgICAgICAgIC AgICAgICAgICAgICAgICAgICAgICAgICAgICAgICAgICAgICAgICAgICAgICAgICAgICAgICAgICAgIC AgICAgICAgICAgICAgICAgICAgICANCiAgICAgICAgICAgICAgICAgICAgICAgICAgICAgICAgICAgIC AgICAgICAgICAgICAgICAgICAgICAgICAgICAgICAg ICAgICAgICAgICAgICAgICAgICAgICAgICAgICAgICANCiAgICAgICAgICAgICAgICAgICAgICAgICAg ICAgICAgICAgICAgICAgICAgICAgICAgICAgICAgICAgICAgICAgICAgICAgICAgICAgICAgICAgICAg ICAgICAgICAgICAgICANCiAgICAgICAgICAgICAgIC AgICAgICAgICAgICAgICAgICAgICAgICAgICAgICAgICAgICAgICAgICAgICAgICAgICAgICAgICAgIC AgICAgICAgICAgICAgICAgICAgICAgICANCiAgICAgICAgICAgICAgICAgICAgICAgICAgICAgICAgIC AgICAgICAgICAgICAgICAgICAgICAgICAgICAgICAg ICAgICAgICAgICAgICAgICAgICAgICAgICAgICAgICAgICANCiAgICAgICAgICAgICAgICAgICAgICAg ICAgICAgICAgICAgICAgICAgICAgICAgICAgICAgICAgICAgICAgICAgICAgICAgICAgICAgICAgICAg ICAgICAgICAgICAgICAgICANCiAgICAgICAgICAgIC AgICAgICAgICAgICAgICAgICAgICAgICAgICAgICAgICAgICAgICAgICAgICAgICAgICAgICAgICAgIC AgICAgICAgICAgICAgICAgICAgICAgICAgICANCiAgICAgICAgICAgICAgICAgICAgICAgICAgICAgIC AgICAgICAgICAgICAgICAgICAgICAgICAgICAgICAg ICAgICAgICAgICAgICAgICAgICAgICAgICAgICAgICAgICAgICANCjw/pJGxA6uvsQUgddU6A7pvYf5R Gl1IHQ0xx5IlAJMuUSvjjwHyBzmVTjWbZBLvAskJLyu8RYghEP6QtSZeD8LjL9TjBErmJM9DIASxPTTj cBHdNECqWMReJwS5YXUpIYuyEJ0OiLHlIQxzDAIxPY SfZhMcXBBuKXUnCIQkXBRcAAGLXNJtZUTdUrJlTBWrOKVuJR1HXQGxR296deCiIp4PBx5MGaWpIP4guq 7ENrEzVSGcLvwAVoz0GYwaBC2MnHIvtTCbHeApWOUYIeCzB1otm9WkYkUqYEATGNvaTV5Bg9OlbXKnJX o+Vj2MQI6ev2CkXGwoUqKzLC8lbc8WUFuRImQhI1Wm nXedVNOqy5ucCHWqIL2baPOxBAT0CZ7aurr7unNMlCFnI6ehLRAXUNYDwDXwBNFgBK1oHF9uLXJnMWBm UiRgJFLFYG2CEKDjYKAzdFLmNXNrLHBCUH2HEQvlMMS3BAKlncAnkSKuMGdmYB1ZYHAncxCeQfEsNWKP DQo+Xj3GSI8ch7SnJOdjCWGgQC4mkl9LZHgOPhTxK1 C0aWKbP2Q5CLybCu9AZOWoFHUvVtExRFJZQQyiNG6NVB0qjhV9XV7LvFXrMSJuJMUhbCDdAXa9Y33naT OuAOxzKI2RTZM+Isiah+Ts2WTXRdLSBuFHVhHyPvZCOETvPxZ1TmF8YRo7LzN3RqAX19dNerksGjMEljRJ 3YYY6cMNLaIJCZDH8GfUIkmF5gtcEcHcSlCFGYKjJa A82xrNJhPHJkQJIsDHMhLu2WVQXxI9LkhySosOzwxpBkXMEaFVUGLA6BHFnmfnJscJOdlJjvPX42sSva SZ2UEp1FShBqQP8asi0FkTLrQs4IONYbJW2QXKGiVSMfGURaYDQ9WMStGgDlXErwCCDqKLRfEIQ2CVLx QEAuVB8DMkQpJKDzWcZ0GrwiUNXbLZDpxh4LZIYdDO UxRRW4QsShGCHhEUJpEGajCHHhADEcIDJ7ZORkZPMsHL0UUyLzNTIaOCG4QJZaSTHgQSWnhp2SSRCmHV FkIHRaGOLeSTWpRCIwDRbzLIPfTNZ0SLA5FGVtWDJoFU2JVnUeIUJoYIukPCUaYKCwGDHyvs7KVLWxXN SzUOptZHGrTKIpYRJvWAwaSHGyITWwGEF3TQRsRFOd TF5VMlZvUJSqVLS5FBChAWWqUQDfix4CTICsUBOqYGHxZMKvFPIlXPDxVKgwYFDwYEE3JJU6VXSuYZFf OR3GGhPvUOTnMJtaFgMmQDLyJLQxfo6YVPUjEGNcISQ1BDKjAVVnKIYqBDajVFUiOJRkDGV9BAJkXFOm AC9QEeXdQJHmJxZ2MYglZHGfTEVxjo2SHDYpLVUxJS UvIMGvDRYdUAHcGTbhTTGlKBQhWfr6KEAhSFZlHN5ADuKdHARkKdK4NTSkNJEaVLIgtf1QXVPjTCUwIj s5JCYkVYSmWTWkFSidZMLsJGEmDEB1HJVoNYWhRQ8TEfBrGDEtCmF0RrRuVRFlDQSyig0XLDZrDCWyPB z6FTYzWIBoOLBoBKyuEEJsQOK3JVRlDWQjQIRjFJ9V RoHnNLEtHdOnGBUcPNGwPEDijc1FRZWvITTyBNC0YrLcGXJvEIUkXOiyKSKuHIK7PJKcRJTqBVDxDN0O BsXlBWVxHcQ0ZujdWVWgEGFooo4ZSTFaGRFrLvyaOkQzPCZzUWKvRMeaSSKmOCG8UlZiGHOoEICzTQ2V CdHyNCZqMnt5CKXbIJEnMTYjyi1DZZEeIHAoJKz7TJ WiVUKfRKRbKOorCNNdNXX7UGF0FFKtQDMaJR4VVpCzDRqfIOBXYvb4YFvwC4s5BGMcJV8YG5Jur4UcJp JqANQBLUffCN9zuaPrYSMrBz7AH3gUPihfYaKrEQD1BzIaVWZ7XYF5YrEkBCT2UkvyOXGiBYkbYg1nHE LzCEP0VXp9HaUvRNOrFGIwILUySaOhA2H5JTBhYPDg IcJbID9TPh4BMgK9ZJD3uLYbYb4JIbwnUzHPKmFqVU2JXEh= ID Date Data Source 12/23/2019 01:32:26 PM [facility] Name Value Range Interpretation Code Description Data Mellissa rce(s) Supporting Document(s) Neutrophil cytoplasmic Ab [Presence] in Serum by Immunofluoresce nce Negative [facility] ID Date Data Source 12/23/2019 02:02:33 PM [facility] Name Value Range Interpretation Code Description Data Mellissa rce(s) Supporting Document(s) Nuclear Ab Pattern Homogenous [Titer] in Serum <80 [facility] Nuclear Ab pattern.speckled [Titer] in Serum <80 [facility] Nuclear Ab pattern.rim [Titer] in Serum <80 [facility] Nuclear Ab pattern.nucleolar [Titer] in Serum <80 [facility] ID Date Data Source [id number] 12/23/2019 03:20:42 PM [facility] Value Range Interpretation Code Description Data Mellissa rce(s) Supporting Document(s) Cyclic citrullinated peptide IgA+IgG Ab [Units/volume] in Serum or Plasma by Immunoassay 7 units 0-20 [facility] NegativeNegative and indicates no CCP3an tibodies or levels below the negativecutoff of the assay.(NOTE)These results were obtained with the [employer] CCP3.1 IgG/IgAELISA. Anti-CCP values obtained with different chemist proteins's assaymethods may not be interchangeable. The magnitude of the reported IgGor IgA levels cannot be correlated to an endpoint titer. ID Date Data Source 12/28/2019 01:23:41 PM [facility] Value Range Interpretation Code Description Data Mellissa rce(s) Supporting Document(s) Centromere Ab [Units/volume] in Serum 4 [AU]/mL [address] [place] [address] ID Date Data Source 12/28/2019 01:23:41 PM [facility] Value Range Interpretation Code Description Data Mellissa rce(s) Supporting Document(s) Sjogrens syndrome-A extractable nuclear Ab [Units/volume] in Serum by Immunofluorescence 10 [AU]/mL [address] [place] [address] ID Date Data Source 12/28/2019 01:23:41 PM [facility] Value Range Interpretation Code Description Data Mellissa rce(s) Supporting Document(s) Sjogrens syndrome-B extractable nuclear Ab [Units/volume] in Serum by Immunofluorescence 5 [AU]/mL [address] [place] [address] ID Date Data Source 12/28/2019 01:23:41 PM [facility] Value Range Interpretation Code Description Data Mellissa rce(s) Supporting Document(s) SCL-70 extractable nuclear Ab [Units/volume] in Serum 18 [AU]/mL [address] [place] [address] ID Date Data Source 12/28/2019 01:23:41 PM [facility] Value Range Interpretation Code Description Data Mellissa rce(s) Supporting Document(s) DNA double strand Ab [Units/volume] in Serum by Immunofluore scence 0 [IU]/mL 0-99 [facility] ID Date Data Source [id number] 12/28/2019 01:23:41 PM [facility] Name Value Range Interpretation Code Description Data Mellissa rce(s) Supporting Document(s) Ribonucleoprotein extractable nuclear Ab [Units/volume] in Serum by Immunofluorescence 11 U/ML 0-99 [facility] ID Date Data Source 12/24/2019 01:06:37 PM [facility] Name Value Range Interpretation Code Description Data Mellissa rce(s) Supporting Document(s) Aldolase [Enzymatic activity/volume] in Serum or Plasma 4.8 U/L 3. 3-10.3 [facility] (NOTE)Performed At: RN [facility] [address] [id number] Kumar MD Ph:[id number] ID Date Data Source 12/22/2019 05:13:26 PM [facility] Value Range Interpretation Code Description Data Mellissa rce(s) Supporting Document(s) Leukocytes [#/volume] in Blood by Automated count 9.8 10*3/uL 4-10 [facility] Erythrocytes [#/volume] in Blood by Automated count 4.54 10*6/uL 4.1- 5.3 [facility] Hemoglobin [Mass/volume] in Blood 11.6 g/dL 11.5-15.5 [facility] Hematocrit [Volume Fraction] of Blood by Automated count 35.8 % 3 6-45 L [facility] Erythrocyte mean corpuscular volume [Entitic volume] by Auto mated count 78.8 fL 80-96 L [facility] Erythrocyte mean corpuscular hemoglobin [Entitic mass] by Automated count 25.6 pg 27-33 L [facility] Erythrocyte mean corpuscular hemoglobin concentration [Mass/volume] by Automated count 32.5 g/dL 32.0-36.0 [facility] Erythrocyte distribution width [Ratio] by Automated count 16.7 % 11.5-14.5 H [facility] Platelets [#/volume] in Blood by Automated count 329 10*3/uL 150-400 [facility] Differential cell count method - Blood [facility] Neutrophils/100 leukocytes in Blood by Automated count 60 % [facility] Lymphocytes/100 leukocytes in Blood by Automated count 27 % [facility] Monocytes/100 leukocytes in Blood by Automated count 8 % [facility] Eosinophils/100 leukocytes in Blood by Automated count 4 % [facility] Basophils/100 leukocytes in Blood by Automated count 1 % [facility] Neutrophils [#/volume] in Blood by Automated count 5.93 10*3/uL 1.8-7 .0 [facility] Lymphocytes [#/volume] in Blood by Automated count 2.70 10*3/uL 1.2-4 .0 [facility] Monocytes [#/volume] in Blood by Automated count 0.76 10*3/uL 0-0.8 [facility] Eosinophils [#/volume] in Blood by Automated count 0.39 10*3/uL 0-0.5 [facility] Basophils [#/volume] in Blood by Automated count 0.06 10*3/uL 0-0.2 [facility] Nucleated erythrocytes/100 leukocytes [Ratio] in Blood by Automated count 0 /100{WBCs} 0-0 [facility] ID Date Data Source 12/22/2019 06:00:18 PM EDT [facility] Value Range Interpretation Code Description Data Mellissa rce(s) Supporting Document(s) Creatine kinase [Enzymatic activity/volume] in Serum or Plasma 53 U /L 20-180 [facility] ID Date Data Source 12/22/2019 06:20:02 PM [facility] Value Range Interpretation Code Description Data Mellissa rce(s) Supporting Document(s) Erythrocyte sedimentation rate 21 mm/hr <30 [facility] ID Date Data Source 12/22/2019 07:34:10 PM [facility] Value Range Interpretation Code Description Data Mellissa rce(s) Supporting Document(s) Rheumatoid factor [Units/volume] in Serum or Plasma 10 IU/ml <14 [facility] ID Date Data Source [id number] 12/07/2019 04:09:39 PM [facility] Value Range Interpretation Code Description Data Mellissa rce(s) Supporting Document(s) Progress Note [facility] GWRBUl7xZtQFJeJv28/VVFryXICyr5MiMSvqOQf2ZJvxPKIkG8OzOZJ2zX4cZSX8HUlUQpZhPuTwIMNf lbm PhIumUFhOfIFLxCuaOLoNzEWygMrlweVSzVG4TxFA7EZVoF30dAFKqVLOcK3QaIAS8Jqa+Gd2BTPAdnT JyDI5NLjdA2Z1gj2fYSQ9mHN/WnhTwZNOVLEfrgv10hbqG1aLskQNQFMz+QBQksRFJhaIcq7++uJI8x9 ByOgEUQW3zU9jjxI4DcyvnrQSm/a3a0fQEsfnY/bf8 UJy7Vt3Es/+wGj84dbhO1cn7JYsCN6MMLA+eucl35d85C8pAQ5uof8avSRq7pZNuArnF0bvnjy8Qbd9o Mu5szyK8Ozxi2VFs+L5Dtl6A397K234ibp8MH5xhcFeWnoR64pVqaUlJIEGP99myHBp4PI9ffxCb9DvH RAIyz2GeF617A8WB1lJs46lHDdmdbQzO4T4YgI7jI4 Ixv1ocZeHRtLLObrnVUGx4VLqUNzUaRK4gtGV/e0GkAwdQoNJ8ZC0uh1mfX8P7v2VAW7LreIL2PpU36n OeiYGfMc+pSJFg1LWrPJAYANqxuDbG15R5S2pSX3P4dgwnB5P1iWeXq9TP5mgc2YHFvN3Tgqm62aq4EG LKpUtiwoE/sCPf+FIiso7xnunhflhYQFwz0tGo1PvX a2D9gaUycdYLysqai/qfOP8QtUPsQpVgvnHyFwstZkWxxAqoQHR1bI8NG+wuo8XwhiYXbojWac7EVpRD +q2lt3fa2qUmEPf9avXJmhUqiw6s+gZl7mUhf/qYuESpiV+ijNbquOWXOp4xWlsmb9bR8RbHoOILXr6v s2WlnIIMY0FvW+WOn74bL6bsDXdq83HhNQTKJVa/hodgson [file] CvQvZpBtOHdwKNBkLfPnSW8CRa2NOeR3FDJ3oKZdWt6CBhGaNMYEKzLfMY3KUZl= ID Date Data Source [id number] 11/20/2019 03:50:28 PM EDT [facility] Name Value Range Interpretation Code Description Data Mellissa rce(s) Supporting Document(s) Progress Note [facility] HVEVRm6wHrNPUfIf32/FDGcpGXSie7MhBJdjGGh0FTzzHIAjP6DwUTX9mA6vBQV8YHjHHsLgAiUdXWZ6 lbm [file] ICAgICAgICAgICAgICAgICAgICAgICAgICAgICAgIC AgICAgICAgICAgICAgICAgICAgICAgICAgICAgICAgICAgICAgICAgICAgICAgICAgICAgICAgICAgIC ANCiAgICAgICAgICAgICAgICAgICAgICAgICAgICAgICAgICAgICAgICAgICAgICAgICAgICAgICAgIC AgICAgICAgICAgICAgICAgICAgICAgICAgICAgICAg ICAgICAgICAgICANCiAgICAgICAgICAgICAgICAgICAgICAgICAgICAgICAgICAgICAgICAgICAgICAg ICAgICAgICAgICAgICAgICAgICAgICAgICAgICAgICAgICAgICAgICAgICAgICAgICAgICANCiAgICAg ICAgICAgICAgICAgICAgICAgICAgICAgICAgICAgIC AgICAgICAgICAgICAgICAgICAgICAgICAgICAgICAgICAgICAgICAgICAgICAgICAgICAgICAgICAgIC AgICANCiAgICAgICAgICAgICAgICAgICAgICAgICAgICAgICAgICAgICAgICAgICAgICAgICAgICAgIC AgICAgICAgICAgICAgICAgICAgICAgICAgICAgICAg ICAgICAgICAgICAgICANCiAgICAgICAgICAgICAgICAgICAgICAgICAgICAgICAgICAgICAgICAgICAg ICAgICAgICAgICAgICAgICAgICAgICAgICAgICAgICAgICAgICAgICAgICAgICAgICAgICAgICANCiAg ICAgICAgICAgICAgICAgICAgICAgICAgICAgICAgIC AgICAgICAgICAgICAgICAgICAgICAgICAgICAgICAgICAgICAgICAgICAgICAgICAgICAgICAgICAgIC AgICAgICANCiAgICAgICAgICAgICAgICAgICAgICAgICAgICAgICAgICAgICAgICAgICAgICAgICAgIC AgICAgICAgICAgICAgICAgICAgICAgICAgICAgICAg ICAgICAgICAgICAgICAgICANCiAgICAgICAgICAgICAgICAgICAgICAgICAgICAgICAgICAgICAgICAg ICAgICAgICAgICAgICAgICAgICAgICAgICAgICAgICAgICAgICAgICAgICAgICAgICAgICAgICAgICAN CiAgICAgICAgICAgICAgICAgICAgICAgICAgICAgIC AgICAgICAgICAgICAgICAgICAgICAgICAgICAgICAgICAgICAgICAgICAgICAgICAgICAgICAgICAgIC AgICAgICAgICANCjw/bYIwH9ovxOAzcyP3P1pgYh3YTx1CLR8mb9YlWBDaCFxupzAqPfpXKnMrXIRwSh zVKvp8SOulCK7RmZDtV6NaC5UlCZmmIO3KNEHkQVUi yXHyHNUnBTQiPzQ2JRVhWGbeKQ4SbXYnRRftJUQiXLYpCuTdRLGtMASwLKAdMOZyQAREJX4CSsZzP2Dn dN59CDSLXp2+TIkptoCwGqqYRfV9XQXrn2EtAPc1ZU5KIVIwPfape7LeNmvpVAIHAMzvQE9DXNF7HGY7 CYXzSp7LBPXuH299yjEqTE3SHm3ZUlEdQU9phg6HPj vrJVPpIngNEan4UJpvQZ2AbDJnHYqHhe2ztuAzzqIWg2ZuyxVkxJYWFAafRQSUXLvpOgrfPrJxLYTlRE 1tFM3lGBUdZUBmYeCmTQTVAR2VMEHzZZFwiQScPIEvBBLPOK4AUYsyPLY2IQJegcCdzFZrLYcvWP2OGD JlbnQgMjggMCBSDQo+Jr5XQE7ju3AsVVfcWYSqGE1q ga2WMZnPAkIsR6I6xWGoQ3W1DGllIn2MUWVqRCFyQsCcUYNKLJttUI7YDL4lopW6VY8HuHClJBIiZEKh yMRvBRy0Z72anWOmFRcmTJ3UYXN+Isiah+Fp5FDGPpUULiWVNrIbYoXAZHOkTiQ9MkM5WNn9MgY8MsWW20 wCgpipIsRKdqEZ6GOB0zDKCkLWJVPS9HoVGjfN0fxh NtEMRiIGKZJmSsX23pkFMhTGMgXIH4DCSbKa2QUENsM3KpwyJsuPxfakUyGQBnHOUPAX5DMMufgiWneG CafMenOF07mVljEW8OOi3CFvRhWE2phx4SmOMsJf0ANRPhLU8UVIHwSAKoABObZFG2RVKrGmCfZAmpIM PoJVTvZIW7UFUuHHVaHO2GRfGeQRAjFgu4SuppDIUi MQRizt2NYXYpHUNoZUA3XiVbBHFoSODpTIldJMGxDLFtUNN6QLNnYSOuBR8YKtMpWQJcNOU6KPwpIFTm GWJjzn0RRCAmWCLsNAoeRgWeVYGnBSPgXByrJSJcEWJ6VHbzVKCfDCSlLK8NQzGsEJCtJTgvByLeRPPl SIZipu9NSMSvJRMlFNQpCjSlSKMxZCLzITpdCVOpGJ ZkPVX8HEAbMJJgLG1CRpAyDOAvMHC7YuohAEVrXADltz0IPMDxHJLwOrF5BPJkUGWlHCOcSXbvSUVgTA NdUGI9LCAdEMQwKS4ZJdDpQUYlKAOhUDFkGJMfWDTcdm4YHRAoLKBtDcW9QVLdJDKdECGzZWhkEMUrWD B1RTRfUZBsLNBpFK2QJyCzFGEsJOI0XYUxUCXxYDFa vc1ZBSLgCWPgRQlgHeJpBCVjQYOyXExmYOAbCIG2XoWgLQRkDXWdBK4AAcHbQUEiBaV4RLvdUQJiWMNi xv7QBERiLLIaMvc5QmPuPDByMEHkRWrhQQXwFGB8UMQ2EQWiMCCtAV7QCaSmUHSoOhbsRJPjHDTxGSEj wj9YEBAhLZQuECIpYvVdWWFqGPRvLCqeRWHkTIY6Tn U5HDVtYPOoNJ2KHpRsGPFyTkh2ARIcIBBgQXJnwm1UHDTtHOZqZNuoYeDbUARyXNToLUtiPOWoHAZdUw b3AOCgBAFbCR5XRePtQVCfPuM9YZLlQXUpLSVtzb9QNSCaJTElHRS7DzFdDIUnPVUnQDx3igSuyPKkHX e0MT5NW7WzftWfMuNRVp7Pv548IVUkDLWwJe1LD6sq Fz8jXBOaTZBKSw0QNUe3VzQ2TtGdERcoXKEzLrUgZhviXiUwUPFbLQQlLoReV9H+PRwwZmDlWWA6GFOl MrEbWOLmG0ZeRSCdS2V4CUN4SAImJD2sTKVWYi4+MEonbEWvdGdrMFTBVaVfMYIbHAcxWHCQLq4U ID Date Data Source [id number] 2019 08:50:47 AM EDT [facility] Name Value Range Interpretation Code Description Data Mellissa rce(s) Supporting Document(s) Progress Note [facility] WRYUTf9yFlZPKnDn70/MYVclTFEox2JpQIstPZr9AIzvSPMkM2ByLRZ6bN9lVOA6XPiQYpFkOcUwYMS7 lbm [file] cXONIN6BEMVuEDnIfJhPnha6E7IrBF4PLegq// [file] ICAgICAgICAgICAgICAgICAgICAgICAgICAgICAgICAgICAgICAgICAgICAgICAgICAgICAgICAgICAg NDTuYQAuRRItOQUuYKAgVZBmAEQlVGWqTVLaJBQtBZEoEG2LRVRpQNIoOGKjHNAsPWShCUUbZHFcFIDj ICAgICAgICAgICAgICAgICAgICAgICAgICAgICAgIC JoNVJuGBHfODIzODWrOGGjCKYkFAJhUYWvHJIiNXPtWUXiQFXpOPAfQYTmGA5IPGKbEMWqPXGpKCSzJI AgICAgICAgICAgICAgICAgICAgICAgICAgICAgICAgICAgICAgICAgICAgICAgICAgICAgICAgICAgIC UlCQDaOPWsVYJuTGFzUQKnNKDvYRApWYEoIM7NKPOa ICAgICAgICAgICAgICAgICAgICAgICAgICAgICAgICAgICAgICAgICAgICAgICAgICAgICAgICAgICAg HTMqWPGfIRNnNBKaYSRgRSBnANCrIEVvMJKxMFJvPOKdGQClHT3XNUJaWRZlYAAqZQHuMHGqNOQhFCBe ICAgICAgICAgICAgICAgICAgICAgICAgICAgICAgIC EhCUHtOBSxWDHcMREpVZHfIEIiRESiDOLgFYBrGUVtOEKxAICnTNAtWFRdFDUyAW0UTKYjTSLgTELbKS AgICAgICAgICAgICAgICAgICAgICAgICAgICAgICAgICAgICAgICAgICAgICAgICAgICAgICAgICAgIC DeCVWkZNOiEKKoHXNaXDLxILSxBBTfKHYpDBYfRP9D ICAgICAgICAgICAgICAgICAgICAgICAgICAgICAgICAgICAgICAgICAgICAgICAgICAgICAgICAgICAg ASMqGIDiWCRwARHvXTWkXCAhIWTqBKKzJHOlZVUlMVXkFHItBZMnXF8WVYRiXRUsBLMfBXTkCKMhPLLj ICAgICAgICAgICAgICAgICAgICAgICAgICAgICAgIC KxMUQvBXNyUJFpBADxORGyATZvHDHfVCUkDSNdVTStBNVcUPUoRCSmEUFiFCTwUDPiHU8JQHTyTQJkRS AgICAgICAgICAgICAgICAgICAgICAgICAgICAgICAgICAgICAgICAgICAgICAgICAgICAgICAgICAgIC AgICAgICAgICAgICAgICAgICAgICAgICAgICAgICAg EG5ZIKZoPFDeRSNmIBEgVYTdMMVzJHSeBIQrAXWwJOJuXDBxZFWaYPRcWLTqOAXbROZvUBWyGIMiCZBz EAKeTNMhFJPnEORsVFOvPJCzCBJxPPUtLQUtBQNsJUDbNLKsXXGxARLmYQ7IGY55oKYkj4Q9DXNqRV6y dyc/Gl2CBZmnnrVpsGCdUQ2ACmZeIO0sny7YLyEmGR 4qdf2BYGaXCeSyR1N4aHPjAGYjBEPARfBaT39pJZcfLd88OTdgJNCsSqEhEHd3Ms5IVhCcN4ndGIKnOf I9WLJrIuZ8ODGxKbQiBEmtIZ3Wk9KhkWPsKOe+Um1XYL8yh5HnNTqzZDLpRU2qch3BTKaZJuEoW6Ipbt G3TYF2OSCpMj1ERDUdMVXncPLiTBNhBBYEHhNtP6Wa iK52DZVAYu6+NMikxmErKnvPPjL9BFSfx0EwSBd1CF2TGLWtBRi2rUGbPPNdG1Rwz5EzCv58GLZaEhtu NOYlagIHPOGchHKqSG8NWEB3ZOjiFB7zGCQeHFZ3LvBnPWWMSV4MLOJbEGLdaIJeIZEdYGUBCQ2DPRny XVG6SGSvowPhySJoYEjaFG9KOMGxinUaRoHmNFDMRR o+Io5ITX7wf6RfEQrqMkYvRP1shs5EKCzMTlQtN9Y4cWSqP2G4WTapHn3BCMVrOFGcUrOyZPYVTRymAY 1YSP0qqxI6SS6RqBApWLQgRQMeoYUdAOa8J11dvPRaEKiiUU6PMSF+Isiah+Ex0YXUDeIEYaIEAiNaZdSH VXLeDnF5SgF9YNr5PpD7BaYJ73qLjltaBkIAwlMG3V GW3sUBIsFBYQLY4XnMJgrT4faqYlHYJrKVLQGbNtP98ewMPrQVFeYAFrONJxYa3JBZPnI5GahzBxpUwi nkSoWTVrSHDQPO3WYYwryfQxqPZrgZoiHD31hXufNM4ZSn2UPxUeGN3oja3RfMTqAs2XCFMiNx3KUIMj PFNmIRCzGNO9LNCwFsHlSGrpZLHfRHFgHGH8RYLsKX UpZC5COaRwNXKqQzPtYJJoPUReIEXyqc2TRBBiZUEcHcl0WITbMUMuOXAuYYuxDZOkTETvGPV7GGMuJP IqMA2KHhHnXDBeTGP8CRdrOFGiZISugu8SDPJtXZOxQSnfDbYpHNLjMXQjPMlrXVKgWLY7KSfkDDJtCV ZzVF4XEtTpFEZjQDA6GronSQErAILabb4WWEQxNADe QjogGkAmVYIyIJFyMBexBGKaVFF0JLLtNKDmWIInKB2INmSjPEFrBXuxXVOnCXTaNHMpij3YQOYqROPp HEJ0TeTvQQErUIKoUDjePZArALI7Azk4BLXhWBMfVF0EGbHvBIBjMTu6NmPaBXGmUUVsbo4OKECcLISc OTgxNyAwMDAwMCBuDQowMDAwMDIwMTMzIDAwMDAwIG 7ZDiEnWAOaQjEtZYJnIYVdEUQnar0VEBSwOCWdAZD5BxZyUMMaSTLlFPloWEIoBPBtOuY2FJUbMSJnLX 2IKtGcYDPcCnV3GiPzHLArMMLvqz1WXUAtDJOhQFr4QxWgPUSkLRCnBVzpDNLkGXCrCET1FOSwGIOyJY 9JWjOoJEHbEfW1UEFyRNRwRNEanz6TEJSwPFWvKfa2 XMQhBNFbHXCuOZhpSZCdXKOnYDR7FXQyDBZjIX9DMxMhVKYhDaKuEOAxDOVlQJXhir6JnOEzvJtbml4M ZNbXSi6FcBzxYHB7TGjaCa3acQTfFbGhUEQUPw7ZxnUlQLNdPXOHJVkgGUWdZYQ5QAKwLwjzOOwrG9M0 ZMWnEAMoBognCmW7NwU3Zfr3IfO3KTSoViT5NKOqAp PkFXmwQWU7GqQ1HSOjWsLnAUXxTmZ+HR9kHSb+Yf2Uh3XqgnI9gdWsQFtnLNQ3BM7QTEIDZ6SPBv== ID Date Data Source [id number] 11/04/2019 11:46:18 AM EDT [facility] Name Value Range Interpretation Code Description Data Mellissa rce(s) Supporting Document(s) Consultation [facility] MQRFEo1uTjMTNiTz60/YWNgzVZFew9BhIPhmZYs0TVohZUSjZ3AjSGB0uA7aFSZ5HDdXEfRgUcXuIuF1 lbm [file] MTU+EJ0kGIq+Pd2Lf4BlkpA8jeVdTHx2YCT2MY7SEPJLY0ULSn== ID Date Data Source [id number] 10/28/2019 05:29:47 PM EDT [facility] Name Value Range Interpretation Code Description Data Mellissa rce(s) Supporting Document(s) Discharge Summary [facility] VGZALq4uMfJTMtMz21/MRZejAAWvr9DjCIpzPWf6USjoSYOwO6MgTFC7jF9kFBC3BHnRJeKbDnXoNqUi lbm [file] human resources [file] AgICAgICAgICAgICAgICAgICAgICAgICAgICAgICAg CGBlUKPpZGMzLPJrCQXrBVUpRJRjTYMvBTLcSF3UPXMhVMNcXNQjCKDpIPMxLPUiWKXiYNRwEHYmRHZu ICAgICAgICAgICAgICAgICAgICAgICAgICAgICAgICAgICAgICAgICAgICAgICAgICAgICAgICAgICAg JYKsUZVqROZhKS2SZEYgAWMjQTPzQFIiKTCvLELrFE AgICAgICAgICAgICAgICAgICAgICAgICAgICAgICAgICAgICAgICAgICAgICAgICAgICAgICAgICAgIC MlFOXbHIFbDYAkESTxWLYqJSJiON4ONGJgATLnVPKsWKIfRBVhPBDuDFZjXRCcAMPlMULxDYDvUURlGU AgICAgICAgICAgICAgICAgICAgICAgICAgICAgICAg HEEpYFMkEHUtNWJqPYVeFVJdRRIqJREiDXDzPKGgSN4LRNBzZWJiAHHiWZDbXMRnUUCaSESqFOUmHAPc ICAgICAgICAgICAgICAgICAgICAgICAgICAgICAgICAgICAgICAgICAgICAgICAgICAgICAgICAgICAg AILkSJPwOXOnHPHaRP1EXNJzMVDxDNMlQADiTWHeIL AgICAgICAgICAgICAgICAgICAgICAgICAgICAgICAgICAgICAgICAgICAgICAgICAgICAgICAgICAgIC XyANLaPASvSOGxNWNmVMTpHXPeBYKsBZ0HBRGcXXElVHUzKPNgIRObZZRgVXZvKLEmIJBxSYGyLCKoDR AgICAgICAgICAgICAgICAgICAgICAgICAgICAgICAg TKBcNETeYEFnCBTtMEPhMNCnIVEdJWJtDYOgVCKxTUMeEK9OXWFsTZLzUQKhAGCqSWNyRIBaFVUmPCSw ICAgICAgICAgICAgICAgICAgICAgICAgICAgICAgICAgICAgICAgICAgICAgICAgICAgICAgICAgICAg JJIzPAGgXSVqRFLzZBUqYS1BGJMqWRLgTBKeHUHjPN AgICAgICAgICAgICAgICAgICAgICAgICAgICAgICAgICAgICAgICAgICAgICAgICAgICAgICAgICAgIC DxDFYwRVCyCXTvGJTiHEJuPAEyYWWiDHTtUL1PDCUuAGHkMKGfCISdRNWxXRGrQWAvFBHrFLSzJAEiAR AgICAgICAgICAgICAgICAgICAgICAgICAgICAgICAg OSUcUVUtQOLcWGXvRZOzMKZlPIIfJFQeSCEsNUPsMUGiBUBoMX3PRT83qXIeh6P7OKRtXL9mbqg/Pg0K LEvaqiQaqCTwXT9ENaHmOP4qxm0GSiBvRX3rct6FZJhONiSeQ8D4sIWcIQIdYCOGYoHaX94gSSgtSu06 IBtgUFVhAxTqJSr5So9XAiJaZ7zqHIOkIfC9OIOkBm T2VOJoDcK8DWShXnKiJXNzTMKpCLQaGFMUIZW3AGFaUcYeUWakEQ5Yz8DagDJ2IDr+Zl7GNO2dv0DrRH tmPhVqAD1cuy0BKRfCRfBrB2XomlH9AYOzRFDgKu5HACAuWJUocTWePhCsZEPFQmNhQ0FzeN60RDJILi 4+EYanpoVaFahLHuPsWTQmo6XpEQp1XK2YTQQbBNx1 kFYoKXdnL7wveoohEYU3qM8liglmCdcfX8wjsbXshOPvGLdrQ9cisVMquBptQUDaIBWfRp1lBi2kKDBt WDKsLsB5NAWDKZ3QNKWqJHPvaYRqDWAsIYOLTF0LCOphTFZ6EFIsmyKdfQXxKZdyCI8VLAZxsjFnVuTt MCBSDQo+Hj2OMX9qh6PsCOoyWGBpVA5yml7QHBxNNd FxQ4C5wKCbE8K7WXcpUw7DFOTtOQQtAdPdAOBCRTycDK3CLS5yjfF4OR3PlYXfOAEaFMPqyZAdXUa2S2 2ziZSlAEohUX4BIWF+Isiah+Fs5ABRBoQTAzEZYoOlQxGZRCAyBvU6NoF9VTx1AxL8QvCI34xFvksxGjNX knHO4SPD0dHAJvUSNILQ3KfXOgoP9igkBuNiOwGOUH RlUrD79fpTRqGEFlJPWyGYLkWy2LWIDqN5FzedGnhZeixnMoLLIyHVJBNI1HYAqpsuCbpWLcaMugUL94 mNliGP0IEa9NInOjNW1exo4VvBEwUe7AXEGhJW9STIJuLJLiVZErHVM2WFSlTdBkJGkwXWYtPYFuNVS4 BJIvLMTtXK1FPxWaZMSyBgc8IGcrEVYkGIWmuw8IUO IdCNXzPOQ1YXBvQSShHEBjJSpmPUGqTKPtBJF9YUGhVNLiGG6FUdIzXCOdIDXuTSKwOBEdHJLdwe1EIR SaEABgGII9SHTxVUYpLYVrACzxHCQaDCY1ZSi4GSUdOVCvCA1RYrPsYGNiJVxbULSyGMFhRDSpik1QIG GoASHxYuK7PBSeSTHfAUXwXNdsHCDzJUZbEdf2QAJj BIBzPH1GDfGqNZRoEPHtKwTkMHCbYYAocc3IXNEkCDQsIRX8YpUzQDUvCEAyKWkkNRRxNVL3CYFkWSQg PZZsTM5SFcFlGANoPPndMYdxILVyKFSfqu4CUHXrOEEcFHveIeHpHSJtDLXtENmaBWLpFOB7GCKoQEHg SYPfBM2ILxVpWTGcNrTlLtWpUQGlYNJofb2ZEWIfZB EyRIH5DKXnVJSsZIIiKCrhTTNgTGUgHFNmHPIaIKOhVD1WLdFgFTZkZiY7DJDzBSVzKLJouv2LMNJkGF YpBVLjPuIhMJUjGNQoWQwqZJPdRTZgYLFoVVBmGZMoIL5CZzOaCMGpBvH2NqNyBNOjZVItbg2VFLSqCE UgGqc7DXOoNXOlRTNaYCexWYSrYRYfOQS2ONRgAHPc XI9MUfCuOWSoCfikZEUjPFOxNRHzfq0QSDByONNaXIAlJZLwWSJtMCYnSDvaOGPwNOW1IBHdQZQsOPPi YK5JQdLhDDZtAvd1ZRLkFVYgWBEgrh9DUJCyRWVwMEkdQlTvLOPnFVZoNWhaLBByIPZ7QwU3OGBtODSw OB6EBmNlHKNsDrX8HNLbYWQsRATjim1KDRPkIWCdEX e5JjOyOZJvUZHkSUssMEVuGLYrCBXzYQGbMNAxFW1BAmKfAEoiTZWCYgf2NXbfD8a6OTCyZA8LD9Bry2 QbZpAuIBMQXSylAM3yngShJMWvKe5WB4eYTwl8StO8ADIpHYUgGrQ1QZM4NTAeHXA4ArRuNeMzFEFnBc 4jHUXfJpUdWBYkQwE9OPVgHuvrDKYqSDQqXLWfAZLq RAX4GrBdMZ6SUx3MMpX5KIW3mDOpAo7UQjCpIEsWTcDnUA3RTWx= ID Date Data Source [id number] 10/28/2019 06:24:14 AM EDT [facility] Name Value Range Interpretation Code Description Data Mellissa rce(s) Supporting Document(s) Leukocytes [#/volume] in Blood by Automated count 9.7 10*3/uL 4-10 [facility] Erythrocytes [#/volume] in Blood by Automated count 4.19 10*6/uL 4.1- 5.3 [facility] Hemoglobin [Mass/volume] in Blood 11.5 g/dL 11.5-15.5 [facility] Hematocrit [Volume Fraction] of Blood by Automated count 34.8 % 3 6-45 L [facility] Erythrocyte mean corpuscular volume [Entitic volume] by Auto mated count 83.1 fL 80-96 [facility] Erythrocyte mean corpuscular hemoglobin [Entitic mass] by Automated count 27.4 pg 27-33 [facility] Erythrocyte mean corpuscular hemoglobin concentration [Mass/volume] by Automated count 33.0 g/dL [facility].0-[facility] [Ratio] by Automated count 15.2 % 11.5-14.5 H [facility] Platelets [#/volume] in Blood by Automated count 261 10*3/uL 150-400 [facility] Differential cell count method - Blood [facility] Neutrophils/100 leukocytes in Blood by Automated count 53 % [facility] Lymphocytes/100 leukocytes in Blood by Automated count 38 % [facility] Monocytes/100 leukocytes in Blood by Automated count 7 % [facility] Eosinophils/100 leukocytes in Blood by Automated count 2 % [facility] Basophils/100 leukocytes in Blood by Automated count 0 % [facility] Neutrophils [#/volume] in Blood by Automated count 5.12 10*3/uL 1.8-7 .0 [facility] Lymphocytes [#/volume] in Blood by Automated count 3.70 10*3/uL 1.2-4 .0 [facility] Monocytes [#/volume] in Blood by Automated count 0.66 10*3/uL 0-0.8 [facility] Eosinophils [#/volume] in Blood by Automated count 0.14 10*3/uL 0-0.5 [facility] Basophils [#/volume] in Blood by Automated count 0.03 10*3/uL 0-0.2 [facility] Nucleated erythrocytes/100 leukocytes [Ratio] in Blood by Automated count 0 /100{WBCs} 0-0 [facility] ID Date Data Source [id number] 10/28/2019 06:52:08 AM EDT [facility] Name Value Range Interpretation Code Description Data Mellissa rce(s) Supporting Document(s) Prothrombin time (PT) 12.2 s 12.5-14.9 L [facility] INR in Platelet poor plasma by Coagulation assay 0.90 [facility] Routine intensity oral anticoagulation I NR is typically 2.0-3.0. Target INR must be clinically individualized. ID Date Data Source [id number] 10/27/2019 07:34:12 PM EDT [facility] Name Value Range Interpretation Code Description Data Mellissa rce(s) Supporting Document(s) ED Provider Note [facility] JQKPZh7nMdHLYyNe89/ULPwtSYBbe8YbMBfxQCv2LZrqTPDkO0ZiQCC0tA7eNUD3OViWOaSaSzExUcSh lbm SmQxuQVoJsGOQcRtyUDwEoQXypRgzklYQjPQ6YeGJ7TKAtJ05rFMRhVREfW9AfHJEpPFy+Sv7HKJNfpQ SsMW4FBbgR4A8tBjmETq0tji1C/PCQidxZu28rtu9ZFhvQtFTRHjgK7oFdOfADQovUGhbGCt15kBB4iX 5wztIgsxDJcaqv0Qyn+lV2WXha082b40QBszZEd5mp QyVD01q76x/N0bMZtKa9+JUNIg+Gwu072ACtC5u+/iZyien7i4iUvumayP7FhzbrmAUSckvOGy3Nm/Vi /akeSNX2DSujF+asPAzmH5Vp08c715hmx3FcIV1VxifF+RIvgYkBliu072I2MC4zNh7AreqaaC2RXV1t GGVViubqMn0eE1qIyvWuqUPd0Vbl2uMuLzqFGS3U3o jjckjPqO8KR7Bs2vScXiok3wChfGcihFmjwOeALmPai3rTyYYs6a3SAMQvJnWR5LzXquCmVAsOKb8Wjq 5bslGOEM7EeMwE3G5dKXzyhGdZQZvHsMzqfWZ14Lk1lpE8DPNfVC3NExb1uolfxmtwQYanT5COs3AO0o hYXgUxlZaby4WGefVtliB5+4Eon0UBEtWOsmys6snG WLeqxJC117UFMWESu/YC4bIorBtjtJiIjJz771ivvrALoR6T4BvMyfRWJqnTOldNK6j4PCbDoMc3bAvH ntbzuAQYvDWwiX0LUMHd1Ad8XtFMMbOJV4DJFDevk61h00/FOzzsVhdOs7NpN+ncqhufiV5bl4D+Gi3v angmsO4NM2s6hEiMq9q2sPrg2/xcKBmQi7ldwR9+fF G96bvSAU1sBBeLwLsCm5u9dsHzkQcAcVui1w/awGfy71GpU1beuyIx0WevVJqq9vH58TiIEPxrodHs18 SAMIA+HPQmDbCX/RRmZZCkaEILkhUHy13uJnynFZivNZB7lC5mxro+cxRNdwvZI6+9IPitc63mpTZgbDvk [file] 8Ty0BbssW6xqFlHHk9WtJ6WN0ZJJTOS2RREx== ID Date Data Source [id number] 10/27/2019 05:40:10 AM EDT [facility] Name Value Range Interpretation Code Description Data Mellissa rce(s) Supporting Document(s) Leukocytes [#/volume] in Blood by Automated count 8.8 10*3/uL 4-10 [facility] Erythrocytes [#/volume] in Blood by Automated count 4.04 10*6/uL 4.1- 5.3 L [facility] Hemoglobin [Mass/volume] in Blood 11.0 g/dL 11.5-15.5 L [facility] Hematocrit [Volume Fraction] of Blood by Automated count 33.6 % 3 6-45 L [facility] Erythrocyte mean corpuscular volume [Entitic volume] by Auto mated count 83.2 fL 80-96 [facility] Erythrocyte mean corpuscular hemoglobin [Entitic mass] by Automated count 27.3 pg 27-33 [facility] Erythrocyte mean corpuscular hemoglobin concentration [Mass/volume] by Automated count 32.8 g/dL 32.0-36.0 [facility] width [Ratio] by Automated count 15.5 % 11.5-14.5 H [facility] Platelets [#/volume] in Blood by Automated count 274 10*3/uL 150-400 [facility] Differential cell count method - Blood [facility] Neutrophils/100 leukocytes in Blood by Automated count 52 % [facility] Lymphocytes/100 leukocytes in Blood by Automated count 38 % [facility] Monocytes/100 leukocytes in Blood by Automated count 7 % [facility] Eosinophils/100 leukocytes in Blood by Automated count 2 % [facility] Basophils/100 leukocytes in Blood by Automated count 1 % [facility] Neutrophils [#/volume] in Blood by Automated count 4.69 10*3/uL 1.8-7 .0 [facility] Lymphocytes [#/volume] in Blood by Automated count 3.31 10*3/uL 1.2-4 .0 [facility] Monocytes [#/volume] in Blood by Automated count 0.57 10*3/uL 0-0.8 [facility] Eosinophils [#/volume] in Blood by Automated count 0.19 10*3/uL 0-0.5 [facility] Basophils [#/volume] in Blood by Automated count 0.05 10*3/uL 0-0.2 [facility] Nucleated erythrocytes/100 leukocytes [Ratio] in Blood by Automated count 0 /100{WBCs} 0-0 [facility] ID Date Data Source [id number] 12/21/2019 06:56:24 AM EDT [facility] Service Cmnt XXX-Imp : NoneAcid fast Stn XXX : No Acid fast bacilli seen on Fluorochrome stain.Microorganism XXX Cult : No growth 56 days Name Value Range Interpretation Code Description Data Mellissa rce(s) Supporting Document(s) ID Date Data Source [id number] 10/27/2019 12:55:31 PM EDT [facility] Service Cmnt XXX-Imp : NoneP jiroveci Ag Spt Ql IF : Negative for Pneumocystis jiroveci Name Value Range Interpretation Code Description Data Mellissa rce(s) Supporting Document(s) ID Date Data Source [id number] [facility] : NoneMicroorganism XXX Cult : No growth 28 days Name Value Range Interpretation Code Description Data Mellissa rce(s) Supporting Document(s) ID Date Data Source [id number] 10/29/2019 04:07:56 PM [facility] Name Value Range Interpretation Code Description Data Mellissa rce(s) Supporting Document(s) Galactomannan Ag [Presence] in Serum or Plasma by Immunoassa y 0.09 Index 0.00-0.49 [facility] (NOTE)Performed At: [facility] [address] [place], [place] [id number] Benoit MD Ph:[phone] At: [facility] [id number] [place], [place] [id number] [facility] Ph:[phone] ID Date Data Source [id number] 10/29/2019 07:29:37 AM EDT [facility] Service Cmnt XXX-Imp : NoneMicroorganism XXX Cult : No growth 3 days Name Value Range Interpretation Code Description Data Mellissa rce(s) Supporting Document(s) ID Date Data Source [id number] [facility]2019 08[facility]16[facility]-Imp : NoneMicroorganism XXX Cult : Culture not performed due to a COVID-19 safety advisory from the [facility] Name Value Range Interpretation Code Description Data Mellissa rce(s) Supporting Document(s) ID Date Data Source [id number] 10/26/2019 01:45:35 PM EDT [facility] Name Value Range Interpretation Code Description Data Mellissa rce(s) Supporting Document(s) History and Physical [facility] EYBXWb2gKmZPSbNg75/JPKgrOTQdg8ChJTovOSv6ILdhDOFiA0HoUXN8qD9lMXR4ZPbZAeNtKiFaNqKk lbm KpQfaBXzZmDBUwCldQIrVjLHgsQybqsTEoBT3BkHE0ZYLaO20vXRRvYJXzE1LqTGG3HMG+La6LARHgeT WdDZ9BSvrB0Bsys6v41roC0o8PCCC6DTZWnygax8hHddm6dEZ2hgpSIoax2KaFjPVDdiS32v5IN0E8fJ GzQHHmDYqmhwmmDW8Q8+IhMlb8+s883cZmgWP/tz+9 wGK3C/eVV5qkm19nz+1+wa4zkTT07wIS8j+2+I9V0bE0/yfkXImn0BLA03j2MEPcnEfCiw9me5OsGn7g q9A2PLlP+5E5QsHJJwZk0a2//sgm/2xpYymJa9wkaeD8FEnhjqPZIkbNixkLaUnAfehGEDtzIWAljn6V qpLBwzRlddR3K5hVUMZK210D6EI8hsihl0aei7bbbz Pb19Zc6AiOsZoStF73QI7H4uWyv0JnYUGxC6XXASb9htt9MDrpb8pFT/DkjpahKT/LFCfRnzgzAzdTHi 2retAlOs1ni7xP56Kmthw6V06rk2OqaNoQw7qIIyFLAb4AWhAjnB7zI0CmjQ4xyIBziWfpAVpjkW/adam [file] ICAgICAgICAgICAgICAgICAgICAgICAgICAgICAgIC AgICAgICAgICAgICAgICAgICAgICAgICAgICANCiAgICAgICAgICAgICAgICAgICAgICAgICAgICAgIC AgICAgICAgICAgICAgICAgICAgICAgICAgICAgICAgICAgICAgICAgICAgICAgICAgICAgICAgICAgIC AgICAgICAgICANCiAgICAgICAgICAgICAgICAgICAg ICAgICAgICAgICAgICAgICAgICAgICAgICAgICAgICAgICAgICAgICAgICAgICAgICAgICAgICAgICAg ICAgICAgICAgICAgICAgICAgICANCiAgICAgICAgICAgICAgICAgICAgICAgICAgICAgICAgICAgICAg ICAgICAgICAgICAgICAgICAgICAgICAgICAgICAgIC AgICAgICAgICAgICAgICAgICAgICAgICAgICAgICANCiAgICAgICAgICAgICAgICAgICAgICAgICAgIC AgICAgICAgICAgICAgICAgICAgICAgICAgICAgICAgICAgICAgICAgICAgICAgICAgICAgICAgICAgIC AgICAgICAgICAgICANCiAgICAgICAgICAgICAgICAg ICAgICAgICAgICAgICAgICAgICAgICAgICAgICAgICAgICAgICAgICAgICAgICAgICAgICAgICAgICAg ICAgICAgICAgICAgICAgICAgICAgICANCiAgICAgICAgICAgICAgICAgICAgICAgICAgICAgICAgICAg ICAgICAgICAgICAgICAgICAgICAgICAgICAgICAgIC AgICAgICAgICAgICAgICAgICAgICAgICAgICAgICAgICANCiAgICAgICAgICAgICAgICAgICAgICAgIC AgICAgICAgICAgICAgICAgICAgICAgICAgICAgICAgICAgICAgICAgICAgICAgICAgICAgICAgICAgIC AgICAgICAgICAgICAgICANCiAgICAgICAgICAgICAg ICAgICAgICAgICAgICAgICAgICAgICAgICAgICAgICAgICAgICAgICAgICAgICAgICAgICAgICAgICAg ICAgICAgICAgICAgICAgICAgICAgICAgICANCiAgICAgICAgICAgICAgICAgICAgICAgICAgICAgICAg ICAgICAgICAgICAgICAgICAgICAgICAgICAgICAgIC AgICAgICAgICAgICAgICAgICAgICAgICAgICAgICAgICAgICANCjw/eTRnA4gaqBKyuwK4S7qyRk4PTb 5KRZ3tc9FcQGWtRSpajdWlTxgDHvPjCNUeWtlHOph5QEalFE4BgDSiA9VvV3DfWGuiVL5EZGDvJLVaaM MoLNDfVCPcHvZ7MIXfOPlgTM7YwIUtDBcpHOHnGMGa LcTkHZMlKGGmEFCdHZQuHRSHLC7XCoRjU5ZyqF06KBAPHg9+VXqouxMgWxrEQiT1ZXTwv0DxVZq1JM7X PPPxAsrwu8VcIoErEBJJUAuoQK0BZIO9GAE0MBPeOg5IIMGtB179gnKqMY0WTs0EPfEmZW4hwu0DIhXp GCSfGvqNRuc5IXutHF4TuRPrNWrYYqVrTdpcBJBif8 OyMBGlPWmtFZpwc7wkZN2BLKB4PFdgRmHvTyJyKWMrYFz3OPEYFWlIRyExD0Tit9YpVsV2ELZnAnHuYD wsAUQcLuD8EO77zDsqLV9SQBSaGOKcCC38FTO7JPOvYe6WRs3NWoTtVK5gpg7UFtRyAXTvWwfPYrt0AD dlNW2BlBEgE4DmeSJqb6uTUzTrT1CKKPJnREHqAp0M ASEfUzOqQDBtIJkrJF6eBUGiLTAWjGwtooX9YJ5ANC4sviRbFX6SUyMzXi3sUc2ALlOqI8PwP1FvRGGx QWGOUJdyCC6TWAxdTN5qDB8Am1FKbYFetR5ner4YNJVxUFEeDhybbn3GYdmzJ5X2qOlaEGVlShUuYSKI COofZI6SFCKgXIT3MTUhKvIpMOIPDvMtJ67aWQ8CC7 Czh93dPmF4MNJiAnRfHVwmKD56pOlkkfEdhAPbrGygDX4GHh3+DQplbmRvYmoNCnhyZWYNCjAgMzcNCj ZbAAGoYPOrGQPkLsD2EaMvGx5VDUDfZGUfUMRzIkZhAQLnSPHiNCgvZOWeQRM7IDr4ZJAtJBAnKN3FKg WyOAUlLeY1HRGlACNeNYTjqe2SVYVgRJXaXVW4JsKh SIJaEPLnRBsfNOQvFYHhWNfuPPMqUHOmAE0YJqVnNMXhFVEaKBFtDMEzRYTaba8UTCSqNDVzKkRdGHPb AYCeDTInTRgvTCWrZFF2PoA6PLQeXRVtFI9JXaQgICFcQXo4ABDkDOPsSQFdwe0IRJCrTCAtPMHhLtIm HKTnYCYdJUotZHObOKJsNvG0YCKjTCXhLQ7ZYxDlBV OmCXP5VeIaJYWzQSGtim7GFNRnPPXjHWttBTIlAGRtIGFoVJcvRYDlEHIjJRU4XDGsCJCqUV2OHhMaMC DhKEHhXDZpROQsKFXpye2WMWNkDDXiRoN8UIMpCITwSCSiRVrzXUEyQJWqMLhfFMWcKYFeYX8WOdVxPD OiPQK6UXosYVKsTHEczs0ZIOQwOWUdBRBeWVGrHTDg YDVlGMvbDOHpVQV7WFVdLJSpGFIqMR6JZuLmJEOpKKVvQFdqPOXcTJUuvw0GZDFjYCJyIWa9LTYuBETl ELCpEBskDZZgCBL7XFK3KTLoOXHmPO7MXsOnTFZcJWVeYQqiRYMyVHCrwd4RRJCuJGEsWpdsPkOpDYTk BGKcIHtzEZRpBVV9XTDrHQGaBPHhVA0VPjBwJSGbYv qsEmFpMQIwUTGhsn2AYMWtHLGcOKN7MBCmXGDhUXVqMAkbEAZpSTA6VxR6ARAkJXKmYG1LLsDyIFHyHb c4JKtqURRrONAcvq9SVYIjUCNpFKr7RfGjUYAcXPFlVLlmYYVpYBN7CNN9KFHvBANbJA5UZsHrBNPvEx X5EEUqTBStKVEkqg7CXOEtROCrILe0DABsKQCuUQBj FJbnWSXsLUHpFDJaUZQiZCCdOY1BLoPzWBPzCrMlKxEwVEOfTCUdcg9EfLPoqUrxef5EEFjVUo4BcVjt AOC4RIseOt6dnIXgBoXzJIZAWs5WwlOzTPMaLVQSTCpjPCMwAEPpXzv0UkIdUfNuCytwBGelNePfMwRz OcG7KNH6JlGeXgB1URQ1KsnvTgH5GJM2CZNkOURpOH KcZKKpASvwUQu5X7E+WT1jXHz+Cz4Sz4AvdfO0goTbYItjNqPyJz7GYLXVM8GWUo== ID Date Data Source [id number] 10/26/2019 08:21:20 AM EDT [facility] Name Value Range Interpretation Code Description Data Mellissa rce(s) Supporting Document(s) Progress Note [facility] ATQDKx6aVoLQDdWg03/QYSpcKLBbe8LiTZvaBLn3DGthBTMmL5YyFWP5kK6oWWR6TUwYKkTyOfLtRkYx lbm [file] [id number]TQo= ID Date Data Source [id number] 10/26/2019 05:11:05 AM EDT [facility] Name Value Range Interpretation Code Description Data Mellissa rce(s) Supporting Document(s) Leukocytes [#/volume] in Blood by Automated count 13.1 10*3/uL 4-10 H [facility] Erythrocytes [#/volume] in Blood by Automated count 3.79 10*6/uL 4.1- 5.3 L [facility] Hemoglobin [Mass/volume] in Blood 10.4 g/dL 11.5-15.5 L [facility] Hematocrit [Volume Fraction] of Blood by Automated count 31.7 % 3 6-45 L [facility] Erythrocyte mean corpuscular volume [Entitic volume] by Auto mated count 83.5 fL 80-96 [facility] Erythrocyte mean corpuscular hemoglobin [Entitic mass] by Automated count 27.5 pg 27-33 [facility] Erythrocyte mean corpuscular hemoglobin concentration [Mass/volume] by Automated count 33.0 g/dL 32.0-36.0 [facility] width [Ratio] by Automated count 15.6 % 11.5-14.5 H [facility] Platelets [#/volume] in Blood by Automated count 258 10*3/uL 150-400 [facility] Differential cell count method - Blood [facility] Neutrophils/100 leukocytes in Blood by Automated count 68 % [facility] Lymphocytes/100 leukocytes in Blood by Automated count 24 % [facility] Monocytes/100 leukocytes in Blood by Automated count 6 % [facility] Eosinophils/100 leukocytes in Blood by Automated count 1 % [facility] Basophils/100 leukocytes in Blood by Automated count 1 % [facility] Neutrophils [#/volume] in Blood by Automated count 9.00 10*3/uL 1.8-7 .0 H [facility] Lymphocytes [#/volume] in Blood by Automated count 3.08 10*3/uL 1.2-4 .0 [facility] Monocytes [#/volume] in Blood by Automated count 0.84 10*3/uL 0-0.8 H [facility] Eosinophils [#/volume] in Blood by Automated count 0.09 10*3/uL 0-0.5 [facility] Basophils [#/volume] in Blood by Automated count 0.08 10*3/uL 0-0.2 [facility] Nucleated erythrocytes/100 leukocytes [Ratio] in Blood by Automated count 0 /100{WBCs} 0-0 [facility] ID Date Data Source [id number] 10/26/2019 05:29:20 AM EDT [facility] Name Value Range Interpretation Code Description Data Mellissa e(s) Supporting Document(s) Bicarbonate [Moles/volume] in Serum 25 mmol/L 22-29 [facility] Chloride [Moles/volume] in Serum or Plasma 98 mmol/L 98-107 [facility] Creatinine [Mass/volume] in Serum or Plasma 0.44 mg/dL 0.50-0.90 L [facility] Glucose [Mass/volume] in Serum or Plasma 88 mg/dL 70-140 [facility] Potassium [Moles/volume] in Serum or Plasma 3.6 mmol/L 3.4-5.1 [facility] Sodium [Moles/volume] in Serum or Plasma 134 mmol/L 136-145 L [facility] Urea nitrogen [Mass/volume] in Serum or Plasma 9 mg/dL 6-20 [facility] Anion gap 3 in Serum or Plasma 11 mmol/L 8-15 [facility] Osmolality of Serum or Plasma by calculation 276 mosm/kg 275-300 [facility] Creatinine/Urea nitrogen [Mass Ratio] in Serum or Plasma 20 [facility] Calcium [Mass/volume] in Serum or Plasma 8.7 mg/dL 8.6-10.0 [facility] Glomerular filtration rate/1.73 sq M pre dicted among non-blacks [Volume Rate/Area] in Serum or Plasma by Creatinine-based formula (MDRD) >6 0 [facility] Glomerular filtration rate/1.73 sq M pre dicted among blacks [Volume Rate/Area] in Serum or Plasma by Creatinine-based formula (MDRD) >60 [facility] ID Date Data Source [id number] 10/27/2019 04:40:00 PM EDT [facility] CYTOPATHOLOGY REPORTName: NEREYDA COLÓNMRN: [id number] Number: [id number] Date: 10/26/2019 00:00Received Date: [...] stain showsabundant lipid laden macrophages. /cts/noemi Gross Fwdtxioxdjw22 ml langley cloudy fluid received: Specimen processed: [...] developed and their performance characteristics determined by [facility] Pathololgy department. They have not been cleared or approved by [place] Food and Drug Administration. The FDA has determined that suchclearance or approval is not necessary. Name Value Range Interpretation Code Description Data [facility] rce(s) Supporting Document(s) ID Date Data Source [id number] 10/25/2019 03:33:23 AM T [facility] Name Value Range Interpretation Code Description Data [facility] rce(s) Supporting Document(s) Leukocytes [#/volume] in Blood by Automated count 20.1 10*3/uL 4-10 H [facility] Erythrocytes [#/volume] in Blood by Automated count 3.94 10*6/uL 4.1- 5.3 L [facility] Hemoglobin [Mass/volume] in Blood 10.7 g/dL 11.5-15.5 L [facility] Hematocrit [Volume Fraction] of Blood by Automated count 33.0 % 3 6-45 L [facility] Erythrocyte mean corpuscular volume [Entitic volume] by Auto mated count 83.7 fL 80-96 [facility] Erythrocyte mean corpuscular hemoglobin [Entitic mass] by Automated count 27.1 pg 27-33 [facility] Erythrocyte mean corpuscular hemoglobin concentration [Mass/volume] by Automated count 32.4 g/dL [facility].0[facility] width [Ratio] by Automated count 15.7 % 11.5-14.5 H [facility] Platelets [#/volume] in Blood by Automated count 274 10*3/uL 150-400 [facility] Differential cell count method - Blood [facility] Neutrophils/100 leukocytes in Blood by Automated count 83 % [facility] Lymphocytes/100 leukocytes in Blood by Automated count 11 % [facility] Monocytes/100 leukocytes in Blood by Automated count 6 % [facility] Eosinophils/100 leukocytes in Blood by Automated count 0 % [facility] Basophils/100 leukocytes in Blood by Automated count 0 % [facility] Neutrophils [#/volume] in Blood by Automated count 16.62 10*3/uL 1.8- 7.0 H [facility] Lymphocytes [#/volume] in Blood by Automated count 2.16 10*3/uL 1.2-4 .0 [facility] Monocytes [#/volume] in Blood by Automated count 1.22 10*3/uL 0-0.8 H [facility] Eosinophils [#/volume] in Blood by Automated count 0.03 10*3/uL 0-0.5 [facility] Basophils [#/volume] in Blood by Automated count 0.02 10*3/uL 0-0.2 [facility] Nucleated erythrocytes/100 leukocytes [Ratio] in Blood by Automated count 0 /100{WBCs} 0-0 [facility] ID Date Data Source [id number] 10/25/2019 04:08:21 AM T [facility] Name Value Range Interpretation Code Description Data [place] rce(s) Supporting Document(s) Bicarbonate [Moles/volume] in Serum 24 mmol/L 22-29 [facility] Chloride [Moles/volume] in Serum or Plasma 100 mmol/L 98-107 [facility] Creatinine [Mass/volume] in Serum or Plasma 0.41 mg/dL 0.50-0.90 L [facility] Glucose [Mass/volume] in Serum or Plasma 111 mg/dL 70-140 [facility] Potassium [Moles/volume] in Serum or Plasma 3.5 mmol/L 3.4-5.1 [facility] Sodium [Moles/volume] in Serum or Plasma 134 mmol/L 136-145 L [facility] Urea nitrogen [Mass/volume] in Serum or Plasma 10 mg/dL 6-20 [facility] Anion gap 3 in Serum or Plasma 10 mmol/L 8-15 [facility] Osmolality of Serum or Plasma by calculation 278 mosm/kg 275-300 [facility] Creatinine/Urea nitrogen [Mass Ratio] in Serum or Plasma 23 [facility] Calcium [Mass/volume] in Serum or Plasma 8.7 mg/dL 8.6-10.0 [facility] Glomerular filtration rate/1.73 sq M pre dicted among non-blacks [Volume Rate/Area] in Serum or Plasma by Creatinine-based formula (MDRD) >6 0 [facility] Glomerular filtration rate/1.73 sq M pre dicted among blacks [Volume Rate/Area] in Serum or Plasma by Creatinine-based formula (MDRD) >60 [facility] ID Date Data Source [id number] 10/25/2019 04:16:52 AM [facility] Name Value Range Interpretation Code Description Data Mellissa rce(s) Supporting Document(s) Procalcitonin [Mass/volume] in Serum or Plasma 0.95 ng/mL <0.10 H [facility] (NOTE) < 0.25 ng/mL Bacterial infec [...] to sepsis/septic shock. ID Date Data Source [id number] 10/27/2019 02:07:58 PM [facility] Name Value Range Interpretation Code Description Data Mellissa rce(s) Supporting Document(s) Angiotensin converting enzyme [Enzymatic activity/volu me] in Serum or Plasma 44 U/L 14-82 [facility] (NOTE)Performed At: RN [facility] [address] [id number] Kumar MD Ph:[phone] ID Date Data Source [id number] 10/30/2019 07:06:38 PM [facility] Value Range Interpretation Code Description Data Mellissa rce(s) Supporting Document(s) Aspergillus fumigatus 1 Ab [Presence] in Serum by Immune dif fusion (ID) Negative [facility] Saccharopolyspora rectivirgula Ab [Presence] in Serum by Immune diffusion (ID) Negative [facility] (NOTE)Effective October 26, 2019 this isaiah t will be made non-orderable. No replacement number is available. For Further information, please contact your local [facility] [employer] Official. Thermoactinomyces vulgaris Ab [Presence] in Serum by Immune diffusion (ID) Negative [facility] (NOTE)Effective October 26, 2019 this isaiah t will be made non-orderable. No replacement number is available. For Further information, please contact your local [facility] [employer] Official. Aureobasidium pullulans Ab [Presence] in Serum Negative [facility] (NOTE)Effective October 26, 2019 this isaiah t will be made non-orderable. No replacement number is available. For Further information, please contact your local [facility] [employer] Official. Thermoactinomyces sacchari Ab [Presence] in Serum Negative [facility] (NOTE)Effective October 26, 2019 this isaiah t will be made non-orderable. No replacement number is available. For Further information, please contact your local [facility] [employer] Official. Piqua serum Ab [Presence] in Serum by Immune diffusion (ID) Negative [facility] (NOTE)Effective October 26, 2019 this isaiah t will be made non-orderable. No replacement number is available. For Further information, please contact your local [facility] [employer] Official.Performed At: [facility] [id number] Sanjai MD Ph:[phone] ID Date Data Source [id number] [facility]2019 03[facility]44[facility] Name Value Range Interpretation Code Description Data Mellissa rce(s) Supporting Document(s) Calcium.ionized [Moles/volume] in Arterial blood 1.21 mmol/L 1.13-1.3 2 [facility] ID Date Data Source [id number] 10/24/2019 01:34:[facility] Name Value Range Interpretation Code Description Data Mellissa rce(s) Supporting Document(s) History and Physical [facility] PTSLJa5lKfWKTqJc30/LHRmiJNUdh3GmXNdeRBl1UFmmBTRcB9SyERK5gH8eVPB1YBrDJiQgUjDhRlX9 m [file] AgICAgICAgICAgICAgICAgICAgICAgICAgICAgICAgICAgICAgICAgICAgICAgICAgICAgICAgICAgIC AgICAgICAgICAgICAgICAgICANCiAgICAgICAgICAg ICAgICAgICAgICAgICAgICAgICAgICAgICAgICAgICAgICAgICAgICAgICAgICAgICAgICAgICAgICAg ICAgICAgICAgICAgICAgICAgICAgICAgICAgICANCiAgICAgICAgICAgICAgICAgICAgICAgICAgICAg ICAgICAgICAgICAgICAgICAgICAgICAgICAgICAgIC AgICAgICAgICAgICAgICAgICAgICAgICAgICAgICAgICAgICAgICANCiAgICAgICAgICAgICAgICAgIC AgICAgICAgICAgICAgICAgICAgICAgICAgICAgICAgICAgICAgICAgICAgICAgICAgICAgICAgICAgIC AgICAgICAgICAgICAgICAgICAgICANCiAgICAgICAg ICAgICAgICAgICAgICAgICAgICAgICAgICAgICAgICAgICAgICAgICAgICAgICAgICAgICAgICAgICAg ICAgICAgICAgICAgICAgICAgICAgICAgICAgICAgICANCiAgICAgICAgICAgICAgICAgICAgICAgICAg ICAgICAgICAgICAgICAgICAgICAgICAgICAgICAgIC AgICAgICAgICAgICAgICAgICAgICAgICAgICAgICAgICAgICAgICAgICANCiAgICAgICAgICAgICAgIC AgICAgICAgICAgICAgICAgICAgICAgICAgICAgICAgICAgICAgICAgICAgICAgICAgICAgICAgICAgIC AgICAgICAgICAgICAgICAgICAgICAgICANCiAgICAg ICAgICAgICAgICAgICAgICAgICAgICAgICAgICAgICAgICAgICAgICAgICAgICAgICAgICAgICAgICAg ICAgICAgICAgICAgICAgICAgICAgICAgICAgICAgICAgICANCiAgICAgICAgICAgICAgICAgICAgICAg ICAgICAgICAgICAgICAgICAgICAgICAgICAgICAgIC AgICAgICAgICAgICAgICAgICAgICAgICAgICAgICAgICAgICAgICAgICAgICANCiAgICAgICAgICAgIC AgICAgICAgICAgICAgICAgICAgICAgICAgICAgICAgICAgICAgICAgICAgICAgICAgICAgICAgICAgIC AgICAgICAgICAgICAgICAgICAgICAgICAgICANCjw/ iEFjU9brqSGoxdZ1O0gpPm1KDz9WMN0ca8LzYJXlRGyoxuGqPabMXkAqZRLrPbsRQao2SSyeHZ2ZwLOg Q4XuR9SdFZxhDG6OCELnFNCnjSUkDPCrDWHmZpQ7DFBjLHsrSZ6VwKFbFXdgWJAzXHFmJkNrBMRkCUKk IFIgMTEgMCBSIDEzIDAgUiAxNSAwIFIgMTcgMCBSIF 9ZQwJbH4YfdE78ZWeCWm4+HHealcZqKojSOtJfIYXhk6AeQFv8WP0DMACoOkpwh0YqGMXwWDADSQsvIZ 6WHLO8ZYOvGIEpZu3LYPEtX793amVkTX6WCl5DTjEaVT6ugu5EKXSfWFIvOuwUXzg6BBlwQX4KpLJyWY sFGmDlVhxwTHndeVWfOADrJQqtr5MrOL9vQL2OOQO4 NBrqLRkwBoOwDVEoQIa8ApIWHVlDLdIyJ2Qcm8XoAxI6HYUhNhKfXVuqKFBbBbV2OA77yMkkJH8GSSSa NVNoMP32FRJzDHGyGt5WIm3SUeOvCO2jim7DSINwHHOzYioRHbl0MRrwAJ7QkRFaR5SnvBBcp2bRXtRu P8MSMYQ4DITjMm1POHUcHsHcONEzZAtvCK6kBRVnQO VXsQtbagC2QO6TEH2bdgFiPR1REdQxPm9rIg4QRoOuT7XoP5CaVCJfUWKIAFtxJC7QHVgpSN0yZO6Qd3 TQlDVfbG5aal4RARUcXYQcEkfoui9DBgrjI8I1vPtqUSYvBSRfNTDUYGdbRK5URJEiWIM2ASNeYSEoWH BMXmZuH67dTF9OU3Nlh25gEeA0IMKfMvTeUWunZF43 iRytlkDkbNHrhFllSA1IPh2+CIbrwpXnYyvFFmwpYBWJPbYzOMYVXjVxRCJmEYQaFXGjAiC2VzKxAb9A UALwDUKaYGWiIePvFOMvKKAhYOyjBRUvXXBrObZwXRTzBIMcQK7ITmMkPDJiVMY8DUYkBEIlBMGuiu1F EDHeSZFiXZK8FpYySZPfRAOvXGpbBVRjMQMpVwjuTT KfQLKsDC2WAvMpEBSaTTM3LdZgZZBpTTAluy8ZWGPxNIAoTcXdSeFoOLIkMEPaPRayZELwQAO8OXW3GP LmTGHjPH0EQzOrBHDhQOXvVRJkBEKwOWTcet2JINGxMCNbJrM1UJBtTAQbQILoQJslBUWrTIS4RJs5LD XuITCwBL0AVfPrZKRpKZI7ZIPaNIBgGAMsop6IDGYe QKFrGYfuXyRdUSHbARCuQMbyIQJuJFM6WSOgVEAnXVWaTL6GXwVqUHQsAsZ2QGYpVUIfKLZadl3ONKWa KLYtKdr0TTZnBQYiVKOcSRehYGBiJFQ4ETIvJWSiFHUvTF2NRvYbFVVgOeJ0FWSuCYTcNNOewq0CNJVl TKKtIKK2YuIeSPAlTPSuVZeiKGRoKJY0FOctBZYdIT ZjUP6AOnLhGIFxCuXtVANjPARaGCNvsv5BPTZcNEBhQzClKQLoHSVoOJUkREjgCKGqPZC5GeA6PPTnZJ RpFB9TPxRhYUFhMyi6BEFbDACgIGUniz6JHMCnRBKgSIY4VLKzNAGtALYxPEdhFLChFWL0NQF1HOWpZN MhHV3MXjDyHPDmMjj8NRUhQXMyDBZmzx7AILDbLZKm XJhyQVQhYMIvWMUwEPhlKGZaJYK8THReDSBdKPUxCN9DPzXeGYUdOjZaKZZvZUMfQMPqau5GGYFpWRJ0 QVH5LCQoJPDjXRWvJRqqHAEfFUUgSqq9LRIbYHYiDS7OStGeHSDkHKJmBYOxDOFhQAYbtw3JROWbHHV0 FiZ0YIIrDZWnUREpOVrdRQFhJHGcOmldRWGfTBRdLM 4FSvYrBGUuPQSyKnJgQGTpFNVfpq9UNXGwXFY5TwBbBwLgMIFxYQOjEZfwQNVbNDUeWgTtXAQlWKDcSG 6BHhZwAWVfJBZwMOWoXTYkWKVowa1EAJWmDWN9YIOwJVQvMJNmDJGpNIaxSQPmESL4Jhm1OFXoHETmQZ 2OOvUeLKXsOGG0AYIuYULpMNCfhi8XrROfhZoksb8W FDuGHe1VuUerELMmEQrtAt1dkIH9MgMoICIBIv6ArhFgKOImWLTRCWbaDQIaXFSmSuNkCyC2OnC8Zwlm DcJrSKRaDbafTywkSXV8WWzrJnR2BRObDkJ2Igp7HDY1Q3WnLsGdPgF6D5MxEDAqEQxwGeK+YR2xROi+ Hr4Ri5MmosT4caXoVOw8YbA1ER6VOPMYX3GYQp== ID Date Data Source [id number] 10/24/2019 12:03:53 PM EDT [facility] Name Value Range Interpretation Code Description Data Mellissa rce(s) Supporting Document(s) [facility] DSANUv3sCfVEKcYcq0SkJtDxSKMcTU1twng4A3H5lXWgX5ZhsDOvm8toJ7KwI6MoNREtXYOKKH4DfDLf jb2 [file] F9LR1NnGIhWmeT2ZDpWRD+kD+BLAYNE+yOWH3YkymjMBL x39KXg0pPSqnm/ekkrwovb92dBg1gBtTygA16i+25d9bIbPvQ5eofJCXGPLhCU/aNTUnDgzLe50QBXjj fsjGKMLbOuhuPYwBlM6mPnBlDzbMLOYAjA/e4XW8wpHcbj4QDWzgnxLj1AHZVWqEYPLY9OF/roDeHELu VFXmepmNTtN3R8dmEyIob7u/Lnlc3eIY9iR/B8woki lPV+HOMRnNTfqdWhdYLCzQjBYziRlaee01rr5pCL2ercIEgvvEiCuXHZOxG8LCC0TWMJkCLLnXPjNzvu NhG3olUp235uOxO06jeuG+v3Y9WWN8IkmoLdhSmehS+GfonNX92Wbc5HqaVIgsTYRpOHGyl2BKRW20xe bGiqcxnfQJlMXPYxJRhJLWyqwtLA7Q5XAua9R5cs7q 2ANdpok0yZ+7tF5FJwLEPGEYV5f7bNLw64rKkp8iNBu8V4F5e8f45Vs/S+r/0Aokv0zzf/goMZwg5DnT 6mjvix1RKZnw4t2Tkh/xcP6fg3/3ei367fNt9q/Z6p/0Adb4by2+f9/yEstVU/991u+0n5bx6w6/X0Tz 1OWP8T+2+FR35435c/a6vo+u/+KMpjn5/+OKt+fvpZ Vefa/c+6/kqsaV7yi7waazmqu3x+NfvPC/9e532/2szgH3a+i6u59jB/SmvfXulfZbVvp/Svktq/1w33 E85rwMav/o+832vcn/u+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/h30UuT35zwHq4nHTWLv2xiZidxe8NacNRCi/2Lfnkl0ziwnXILgm+8pYt m2Iw9hs/dNS/5GIyd3g5yn6st/9lzk3Kw1I8+/rKVd B5Z1APQF02Sj2+a779r/hJGVedU45K82ss1G5zQ33ify6qk2glVw8u935EIh+vt7x+YiQJlo2o7/+25V 3KIt/b6eb2obkbnN1+M2H6z8U/0s7yn4awfJ/s+48AD7ri1mE489CAN2uvPwzA42l66o70mTRcfP8ize zxrrv17kEf7D/2sg8Ee03L5+vA/cDz+Y6vnq/eOuy5 4/18xhWX1/i0jlK1bju70aklA+Y6d3297Jeo/XbYc1/XHobGb+i6ea5wHzl4fOng8vLuX0xsxFin/nrt mMd3Cnvc9X8LuM/R73sc/i1FcdT5hy46C868I8lagVqv88b8/oS2xMj98/Zzxu3/eOeZ4x2pZ6a88/rq Nkohs4zZD8X9Re2u/M6O+wPPY/zOifon+rPno+Xr9p 7dYob3CyfwsWtcAi/u6gPlpX/l2+4qV2+bMJny2p2DRh0uCk5UDihrlt23V4ks9A0A/yf6P9F/yevrr/ 955bwm17kb8q/OHb/XuH/x469zaz452jcf7Kpes7Qjq3rv/V63+7iLp1n9dfJvcc6w9rk003Ag1Ton0M iln722B/fXvR/FxiZpb4715uk/UcF1r3qJ6o7DE8lf 491asHte0UYj+5ydIW6/cCCQ8Kd7wro9/aOLUtp3Gy/91c4Nt//cqeHf/kz0E/LGglx3/d8M7prqw0GM f7HdmY82O3Bi14Tfrz/Xxld+rjnmoa1y0j1+c4Fhs0cC+/02PdPwfN/1qM6O+rbRYa9UpKyvaJ7azH/1 g0gauergnrBXe4im+5nh8ksTtQ5nk+B+sD1ECzKqni y+dw6NF59ItXlR3brsnpTckWW+v/P+Tvj+W1+q/5/5NdmzbaPJ19xx1/JRPbOO6fau/ViAcp2zmIo0/4 C4agvyu+plKc9wwgYskVT5TZ05De6Y/phiva0fj9c5YKbbcNx0ZEO4iwkjgvL8jc5bua/ewcJ/ld7d2/ pmd/+tU/XM5/126XPjq+5U9c/92hx9F0td9KF/Suzu +km+scb316nznO34rkx82d6X75HiSgS/v1/apuS3edt1iA0P6kog5cim6E10AokOAszeoQ0/vWZ7e975 +Od+1wu53/VC7nf+faZDoi3yWo00/z7856fta5krouy+8ljb+Mp92/ckb08E91KE98jvm/jrAU837k6T fa0HVf+6/Rkp4fo+PyLhGs/QYc9MSbWfqfl3oepHx/ YA0ZU7ox2zjJoql+Cmgz7Jm6A0Ehq1uoF+auOr7/W9v/BW1un5K/fj2s/SR18l75tvQt06C05ghVg9tW h54Svft7Rofy/j/lY5ilvh+bb4d80FrbcFd/sAn47oXkc0k+vrLa+ywLvIrgtVsZgQ35YnTm/83sZXM/ n6c18+pTFx60O5m0p5L/r6lN6hfY4vc6vgbpr01qwA D4Eoipj/b03ct243/b0O3A/ne186bUwnXu9//rjIE2Gab++3CF/5mYbnG+73dOvsqH/g+YHnJ+5PtLu+ dr5TrM/0yrec5951dzhvwrw+5euM+xn3C+4X3L/z0U6s/l433G+433G/o5/XP++U6u/5ay1N0Fl4GMos 5M13/H2t9jgC+3c+KsJX/CcXae5V9PWyI+7j/Wa8X+ CrkvF+ha9kS/mO35Lv+C3CV+ft4enyK1xVUtq1gL2WkwcgJJL+KsJX6k+CiEKgMadpYh771O+op6P+jn Kfm6D4WuMWcEtx000xpr5jy3A1WO37S5zyzh3npeX+imije95w+dH3+jteaUpaw8CjjQAVw1f1g4jFWv jtca8MHE/y7E6wDoOoyCwt7/odHI2VdTnawuawMV1C eYLcuF02F6/Pijh9vEUlH6bV6z1W7BLtivnxWAHks26DztN2Ku0pce0r9mX4qzu/De+12u00jV+G99vg n/pwd3ron+bRasem284Kk+3zd+qfmtk5dckf1yEF7rrf/LJPe2248ru8+9BR//bYj7Y2Das+G2/fyc7f 65XuM+h88ySii5Kcgsk3Xz7/x94dMTYYoycGt6EJ0e fXnhG/KsJXSuoVvlJe+QdfjeR6+l6PqGz/rFP8/PjcH77+6H4lz14cqRkg/zJ618d0Dc7YzvJ3qrwl0M A1Hk2gjx3iYkmq+SNvl+rbU0NK0uDH3zv/8dh2FbRrre0Sa936ht8I5HKf1X8p3z4FWdTx7EzmqDjwy3 Y+i6v7V964v+an8cehvqaz5a0n/e3hpdck+w3RCf6f J8jXfu/hp39g2Ebyg+/6aFyfL1lD4BQsL+5n3C+4X3C/4n7F/XbtU/hKOgS+KmSPZapfGA6Z7dfn5/7C /yNmI8J4IpkQ6I0dNxb6kwR1Th6J+Ha4tpCe037G/Uy4OvK73K2PakO/4P7A/xd8LrXd/DzE2Vc18jf2 Hm0pT5pMr7u6295kVt/EfEp9IlO7Ci0H2G+o/86/Ne 16B8XwmJ9LbuHk+xmAN0HzF56tlGOPu0WIR/PHh6i1aB63Bcengy7N/bserIhfVeGrpfs3/xy5K3eQZm 0PKtFL+8ESNgz5/lxzw/Mv1ws7rRU+YFJbe/719Y0/V+0Pxjfz+Fv/jbdX7Q/tqzPik5VMajqM5+/8W8 eMI9en2dalksip7f6K/Iv9nHg51M+o/+EDIlveD2bZ lNvrJPx2wx8HHodCP3gmNNG/9hkAtiYCcFrfL2ot0gzmmfY3aXCFl97O478qWO/zqBBr8uA07NMUZz6P G1+s29ZCZa2a/Z1PfK+/eLIqfqWyil+1oy4fFDxJ18id/CJ+BOgOFLNvifun2y2l3BcgYoLILfQhxsUB 408vh4Y/C+4iT1zx3nuPfftrFZ+YdX3llbtuOF+HvB 3miektubx1Mf/5mY7+LGPw7F3P1fR5W1tF+x2QV/hKfRO+Up/HXR/IZUqDVB7K9tlsovoyyrL+eTS0C3 rNo3UoZ79MvO+kZZedkpNcn7L+Ikx9zTiw2avC+ErX2h+nzxl519Mi/cFz/vMFic160sqr/n7V/qCysG f5fg+uq0Ot7ri2JcHUuxjs8mwxt8TdqB8O8g+xP1ix E0pwR9sydL/AyyLZMnbFoLXpEo1fby1Xmo+n97glGOWx1P7cfNr31dpu4FN5Dg1+r+/0l893ZtcK6fuK 3zU6R0jcH+5+Ne5WgkXZgdhiMe7cb4w0OTR5zgXeui3R8A+4X1FP/moSAqN8mzqh4enirvTqmkdsGvlC SllKd7+jvG6xNtE4vfbQdv0/Vy0viVNGVjT1luawx8 3Vuz+E+1dJvd5/4Uh6P3iw4jOeF8y1P/93CX634qlEOk66j+v/kRnh5GUtj39V+e3U7xcxej6T1iUvex Xt+b0v1cjMJQi/pThG7R8prvDDIa3lQ0s9T+g63cxymZ65qL+9dgKvv/Xa+qf7EZZj7obgG3s6dxpsOZ /83BS/oz3i65m84MjC721aqfqmSV1ogi+bl7yppZ7s f+H+exw6mzV0gbz2bOv+ba5gvlb69+f7SZ2v6KvhD/QuTKYxhuG3sk3so7lx+Zkbb2/gcqcY1enbS9io 4oJZWsgY71nm7elzK5AxamJbAff+8uoYR53j+RCnuMzGOsXaehVRCs5pd4C+mnCN+uix81fsbR6bVZB+ 8jXGr/CVn5+oZ6L/C/9KbE4t09t041PHve3xzyiuc2 40Kwc1gmNBn0eBL51xjL7PH8k1S86akBrfSz3M33kidzPx+9miwrzV0+/+CEfSYtysM5Py1/up8NcjcN 9Qo0uAujj+bn0vM0v/vCG0foatf5vj2C3Up/CJpghzIst12AWFY+f6jpd+949ax/zSqonc3i+0gfeL/c C30nxubb7/iqMNf4v9129ysc+ltTj65S6Z8Do0r19n X+b5bOcldPvf4SRP6Zh2Q8yR9A0mpf+wb5rF7C/ba9eru3+rBg9XqU+FjJ46z3x6O60z4CbS/h3ge9I7 O+9+aJsYvxPyzrv/24SvpFvhK+uj1s1YgkXh7b8kyHC9tER9Gs3mfizusDMJL5+3Wp2roM/+WfjKaa/9 2ueCPQtfndTYa//QR19loIh3SV/Webh01Dvt2gksy+ piz0y6IdTtK41KPbffyqrl5wlijwd4c/t+e+q437/237GknqG1Ftivfy0J4j97iN42dH92qu87HA4n+a gLie6e5cgg67542C3uSfL9I51RlUX/R+sZG0OTaenvLt6ums30Zmaq0kyLIjt26/q35zv/7sk8Ou3028 j+zr893/3fni9+9ca43y00DGf1ml8baJZx7Tzh2Lmx /k2a2AVA8ch090i/2ITQJ0fk4bhY0R22Qgikdl70tzhhz03h+COHdt1yp5z+3/pLwf2C+xX3K+433G+4 328/V74gI2hdT75+rnH/ufm6Keh0FiVErfweuXLi0Jf/2yIbt9z5E/xVNQpVXuL9ayFla1n/qp69/pUN 1/pdX+sDLp9Rtydf9tvBsok5xS+S1Fb/ft/BkC5cMr dEb972fj5w4jvQMw7hzi7twJcyHT/dGo3a6lwpRu760YIZns9ptAOMet4ZhgzIQ9cYr/1zan0oqlFxFu 7pGuzGC51Q3/yblZ3r56xWus/f6uvb/10qzPcZpQYh46t4Q/f3+x3qw36/a38m84jun7sRjkzcO02ftO 2c0xzaAYr918Dtl8/6rC6naqpyJezy0emz79h/5XWd A/VP3J+1l6Ry4vs6gClSs/Alejandro/YsT/PjF5DhY3tuWSVB38WO6+2Lvjzvfb3cB3IruLp/+7jr qI83KU282I/x/ZNrbA8H4vGP+WjCPwtfyVYnxu+1mJYRv0/f5/3erM+9Vby1kd4fdd51/Y898Lksg3Ab xZ3HvghR3o/cn+qCOO1j49M5+S38E89WOf/b034s54 [file] cQyYvKidqf0AuJkniyMbzu/KU66zhCtbXL+XfS4z1BCSSg0z2m6z6oCZj+l1krEE7m432oqfWXU01+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 [file] POxh+/Cq64pR9Idosg7ukZ4nwjnyQ0M168YZ9WC c53h2q/BHKF0N2H37a3KcYls6VzN/09FCUbzz+mLc4LZngmYwHRud2odkR1D2keC+0T39EE3rubi4RgI l6hvWtl5z2oES/WiZgWWimQk3z2pPjuG1L48z551t8bFVQmyp6TAq/oMYj5UPlZ7osOQl2LmK3c8StlR Mm6yyZhO2011j/if5WxufHzodptYnuwH5u2mgK5q6p V5D5v2bV5kLD+/axEw0c7zXc/IWpD2/wlr4Pb/C2gw9v+VCwVfrx44Ne56n4mQX1JKEoQzkFkqQVK1Ys HhCqW1268MgcW376VGPZdm458lSTxIfnhuqXz6iV3rgnmjRrmxCmG1/iTQo3wJrpIR/ecKn+8PrDGw+P 1nmFG1w5tZH1fd6vWmqM7sI6rVe16hOai5gHyoh96z Dqw6N/yQ/ezQ/cfXO6xqW/tENKZ5c/MR/daAdn5hKx8lhm4qdw6ed/v6R8zQyd1zZN3sMEw3zWdIf1Yd foJT/24oG52pZxzKpeGKtQAmb5oRonRU/1hx80XE+6gVptghQt0yPZ9bqLpbacPLHVXuckd14D57bNV+ fpXDgfZSYo+fCGW+6PU9E31B40JpChn683E6dghR/5 ZCqZiocXDy+zzooMDR/oSSbuy06vZ77cuBolk3r+pMW70RcoLuZSjgn+PBvvrnOUw+Yt8+bDm0+59dTJ RCYiwe5pb41kr5ggHcvzpT+5/QCrW5ojmUc3nfLIRWGS96fnTutOT0637+PPdyzdEovKB2o8+/CGr2X1 Eiu9Wkm6MRvkbCc+2Et/7KU/5bZfdoc73GuCP/2Zj/ rjX/rjX/rjX/wvuuzynbtjjd1ktnlY0+1cT+cH7+iLNg6v1RuPjCQtEaNgvtWnK+/xL+QNj7v8Bq62sM tuR97J2/G74/Z58qBQIu1dTu83YszOu78Eh17i45xdr5k82NH45zazM96MP524Wnz6fxb8wkXfW0P8ni [file] 3uuZQfrb2a0bzl628hEZo1nX5axBy7099sjI5d4iX0 zeLpgbO/2JUY+tKGZ669nPeiwwj9luw7aBAqCLchiM+O12wniA31QZRNARD6pQYMIdnNpa6gb0GjPJbQ qeXUE7CIntVEIRoc8B1OetTIUUkh4P5PzyAxtkyg629sHEiVS3LT7OgzGcnDzqI+wD2Hmp32DwLQPHsk J1A0tfJObtT12lgMCsqV6Z2XjXdxKhQJRDU4gErgEe V8leM8NrSOBlFv21q1xVbpDiyGHajZs5xFpFjdxSkNgnaghoslgeWnIgaEH+SET4YDrFYnWDMQKdxPha 5bdlosV5XOxNRQWTpZonQkzYFgAXUJONAabml64j5OzShRRKI9Z5RXgCs81g1Hma9512cdhDHbiBR/pB n/Lq6dnAGCOZbOoC+5yuU8Nd9HAN2P237islYb52+6 Fuuj16TQVhfUZqmNlYGWTDNYsYa4pNXUPLWSSJARVsiEHgu923uhB6QAC7pLYNNCqAErFNeHYcdqZMV7 t8vOo88dPsJZfv9xpKWwkt0DD69iSVJ84ruXmgnfWMsTUhMxAsFCHiYvRj4o5Y2mr9TgfIdDxmd4muKh koIilHSjWl3spoQJNwUpoX6K34UNaVWGe6DxgMFXve NBgzXw6OlJbFkZ7YABNjm+PEcUM4ezjZuH6JJ+VYgE1VPyJE5KpnmMbetbvYTunWAEhwJEmyUMVNig0b k7KG1b6J5Np5PdZbu4bxcjTLQKbKqTZtCn8ym8kH6SNxbAzpJvsW0eukRRNVx5e1heP3sc+3WzAwz65n 3ADQVTNJ0ZpqMZ33HG8LaIXM+PTd1mVFXMO/QZEXR6 PkklVLKN1EybckjLsYItIO0XRiPPSQqZ7lpUxp2sW4u3ALu6PPIwuIaygi0kToAywumz3C82HU+pzXY4 Bridgette/U4w8R2u1+RXcjZ6MjaJjx0nYV4zWUNL7y2+8f1oGXhR3hzMqiiCdBaQD4EQVymCXGf+HnPBh9dw muv8XmvkdAvCi9XMEMg9c0mnyBRqXw8t0toX8cJSCv 23ce2+r2nW/V1hWHO5KgibOdlea3C7zzlgcmwGHFeNQtoZ2snEB0v5F7KGIJHP+0zncVIY3gDY+Ynlii 29pEtYdieh7WEMsgOlflvRP82sdV+5l0YP+W61G9jw1Xs+39RZI00VtvYQY8SZq0oCCLUmqGBY+ojE9U xifqpEz0+HKseqZgl4imSzfm0LyVMGFUUANilZL2z5 PNVzPoNmaKbXdvJdklt0U1k9MRNdxadzwy6cWesIV+qJjYmX0od+PicMgROdLFBL4h2b7Yu9fjVzlkEj ZdnBsX+kQ7lkU37ixXrxBX/w1dgZ5xRl6Wi+Y/VR6BuZb0uq0CQEP6UYA8RsTogT4YcK09F2aOiRgM4Y QuW7MduWwKUiDjrkdkVnt3eeuSmGBMZ4H+NNGd+97F 85DWVQg6QLGD6BqvEj43DMYLEMTq4yB+3DzhWeW4MFiLx94iU9mJGn0agNNDB2iYCGKRNPQoCf//5G9/ +JT9HWHQ4KW/pOj319WCz/r44f/++TpSl9gNvE0XaHR//Pz9D7/89q8//vvnT99+nhiQ8dCA+/qrL8pj bY+Cc6oFm+xGrt95v//4l72b3HqS/UUpX/UP301ra6 P53//623/6+PWvvv/h0w+fP37x+auvv/m8gzecf/36N5+/+/7rH/7pp5+/+3Gny7576tKw8Y1//cPX33 7++S6dC783/wk4s5983oQ09xlD7JmnWGYBNh3B7s4+9tfff/zw6cuf/3PZk8592eoC/4F4ryG3bMgCY3 7++bt//Pr7zx/f/eQ6Q633jN9x1/+L0+vpxJ9//vbj y1/+7mtvcxl71ql/uu7Zi85cyTdg757j5sveeu5rz3/M8ipoydS40d4hmrT3Xy40+8uP77/++2+//rtX V8u0v6kXJ//07d9//vjHT99//N0vf/3tV//FLx/e5Bcnk1/+07/+4S9//P2/fPyP//Pxm6+/+kmLn018 /vTNX3/84qu//cye35wwq/7m45//W13//Fcff/7Tx/ xZXT+ce0Fdm2M+0Prxq1/6oz02dNTQ08K//OPP/u3X8wppYMqN/tCeuYpg2g02Wt///wRg7NXX/Tflby TKR3xMYxj568Ujhh2f8zqKl9+cW6aspQ21HdRo3exmHzYolqT++/2//l0sn0Cm++Hu35T3w/+vT99+9f m7j28+/oBg89zQuS+/y67+2+eJ3aeqbf1g3s04CLP/ +0vFcp8kbnhaIi/1t/H7m9//6T/+5uMvv/2O4050/5oHPzwrznPSH//8i11c8MGJ/bj1A/7qu48//Ok/ fv+X/+e3//MmEA636c07L/VJbMqPWz/YP3z3/ce//O/Xvf/hz3/6cfOWU+5HzXsTF/lVS578Xl/8ju97 NzLrBL2gciD+gT30eLrrjlS8/+jmLyZKzAZp/q7++K 3G9fypgkjZAi6++//+/t//8/dz96zZG/3067//9WAu3aGZccY/85d//lldpG9nf8/9/o+//gq7I4kg1V 9/+79/99t//8Nv//IpHe1y9/5Yf621+/tR6fq3//Tai8f11hj///lXY6un2LjvtTy63e+/+4KMHhPc50 UFHvyH3//uf/7qA7617p7VH+ctA421keRh7QD//T9e Y+5fvvj+l3+Nwj2gUS4otBBx/fZ//f8kxpe0Cc/eJhIrPHW/9Y+Pz6+v/oQ3zz9umo0hme6uRfvjU187 +rBfQB+1lkro6qNbpv1oRdT07iZyFcb4KS0r8d4a7p2q9NybqhBwlCTdKK1NBZ6mp5HpYgI2LJBca1Qd JLcwOSp8jHOpEPwpwlMjx0TtliaeY1Otj5ZxLoVgCU XsFsCmPnl3ZGPlFbF8yMFlFhAjDMQrA9JyBNFoViW9UtCkEXKHJA2AZVDvxqKfPaPsFZL+UbRyNT8yzr oaGXKep4VpPHulGXnqTBLoZ2R6hPnnUMHxH8CmlS38RFSlL3AygnB3ABH4YFXhDyZvFNVdlKHfSUYlIC I+ZoLkBS3qhgsaTHKzx6GaGZpaFQY0dX5eNEoJFYLD NDlYPCuaSpZ5z65ykrUUVWLsEBGgDL1NepDgdIazhvRqyZRjQHC5LgIrKMC6JJsvJwMgJWRXQRUxUWCa OIMdJRVhI4UlyVcjAZoDDLOSQKyNBVxzMiQeb9T4MMVmbaMIFRKSE32vAZxUAV1HMKV3DAy8AdFoOF0G dXUjPYE7UUkZNVPCFHcQPNrrTvAuh9R2PIAcB4VpMN EujbKaMWSSVXheUikkDK2yiAyczddsB5CsmWHjJWGRBAJgUGTdCOUePWEdA7Jkf0V4D3EvMRlVNFZHFR bGNEhwGqF6y32sqeRPDBMhJHYiKV2+PQ1tu4SuZj4GYAZpTU0vwqt8YY1ZrVOcMA5UCWanqbAcZ5fydg WtVcIsSUGNQF0xA0AgaM59ATU+NkZcAG5zelf4oiTv ToIaAMHlWWSkBOOrGOzuCISvTTWcUOXnRYY0PAR4VOQmWxHfYRHfIgW7SGLiQJWgMGLarfGUNWLlPDX0 GSZvXqJpNZNeVILwXTncETFdEBhrTWg5ZPCgLBIgYZ6fZkHoJTNvNMEeNDZuLgG8EzAvYvMPTWXoNCLm NZZtAtEvAJNeGKWuJFaeSFTuCVUaTId4HQSrDJScIM 3qNeAdQRFbTQArMMRyFNDgVTKbmzBNBLHnRUZjNSX9BOLjNXWjMLCkYZluQOLaEHHwCIT9VRAcYJMgZY 3tHqZaTFAwFXN0FaKbPDEjUTGevlNKZJTlEAIoQRP6YYVmSFFrSVMgGMcrGLEhAIKfWoA0GOVzAYAsBZ 3kEjZqVJLoVUV5TXAbKTVrXZLkmbSQAXOmBWWuRYt8 QpEuEWUnHBFgAUglKPKcMLFoFOwfNHLmLGFrXB6uJkBzGCJwEYMoVNEkYPJmOOKavwIJGZEiGOIlGYN3 EfLdVIDuGJZpABlzOTGrHKOtIQK4IXCwTISiKF8nQpJpRWOhNyRdUQzvYSOaHIQkthRELSTrFXBhAUVh DTEuLALwDLNaRMedHZKrBQKhUvR2TQExHOSrOK4iIb CdUGGzRVC3DLEdTDKbYBQpbuRBXNHwMCIaXKSjGAE8FUJwATTxYTr2boZhgMXuJuh1Zv5UcYhfYTX4Sv 8WfsFeDYEhKRHBKh5Fx309GPKiGEUAHem+IiiqdOQebPufZDMVPfY1URvGQQVGP7Y= ID Date Data Source [id number] 10/24/2019 01:35:25 PM EDT [facility] Service Cmnt XXX-Imp : NoneMicroorganism XXX Cult : Polymerase chain reaction assay was NEGATIVE for both methicillin-resistant Staphylococcus aureus (MRSA) and methicillin-susceptible Staphylococcus aureus (MSSA) Name Value Range Interpretation Code Description Data Mellissa rce(s) Supporting Document(s) ID Date Data Source [id number] 10/24/2019 07:01:06 AM EDT [facility] CT THORAX WITHOUT CONTRAST [id number] RE SULTInterpreted by:CIERRA GarcíaROCEDURE INFORMATION: Exam: CT [...] iterative reconstruction. COMPARISON: CT THORAX WITHOUT CONTRAST [id number] 05/15/2019 1:49 PM FINDINGS: Lungs: There are [...] rce(s) Supporting Document(s) ID Date Data Source [id number] 10/24/2019 04:15:28 AM [facility] Name Value Range Interpretation Code Description Data Herrick Campuse(s) Supporting Document(s) Leukocytes [#/volume] in Blood by Automated count 19.9 10*3/uL 4-10 [facility] Erythrocytes [#/volume] in Blood by Automated count 4.15 10*6/uL 4.1- 5.3 [facility] Hemoglobin [Mass/volume] in Blood 11.4 g/dL 11.5-15.5 [facility] Hematocrit [Volume Fraction] of Blood by Automated count 34.4 % 3 6-45 L [facility] Erythrocyte mean corpuscular volume [Entitic volume] by Auto mated count 82.9 fL 80-96 [facility] Erythrocyte mean corpuscular hemoglobin [Entitic mass] by Automated count 27.4 pg 27-33 [facility] Erythrocyte mean corpuscular hemoglobin concentration [Mass/volume] by Automated count 33.1 g/dL 32.0[facility]0 [facility] width [Ratio] by Automated count 15.4 % 11.5-14.5 [facility] Platelets [#/volume] in Blood by Automated count 275 10*3/uL 150-400 [facility] Differential cell count method - Blood [facility] Neutrophils/100 leukocytes in Blood by Automated count 94 % [facility] Lymphocytes/100 leukocytes in Blood by Automated count 4 % [facility] Monocytes/100 leukocytes in Blood by Automated count 2 % [facility] Eosinophils/100 leukocytes in Blood by Automated count 0 % [facility] Basophils/100 leukocytes in Blood by Automated count 0 % [facility] Neutrophils [#/volume] in Blood by Automated count 18.48 10*3/uL 1.8- 7.0 [facility] Lymphocytes [#/volume] in Blood by Automated count 0.86 10*3/uL 1.2-4 .0 L [facility] Monocytes [#/volume] in Blood by Automated count 0.47 10*3/uL 0-0.8 [facility] Eosinophils [#/volume] in Blood by Automated count 0.01 10*3/uL 0-0.5 [facility] Basophils [#/volume] in Blood by Automated count 0.08 10*3/uL 0-0.2 [facility] Nucleated erythrocytes/100 leukocytes [Ratio] in Blood by Automated count 0 /100{WBCs} 0-0 [facility] ID Date Data Source [id number] 10/24/2019 04:49:32 AM EDT [facility] Name Value Range Interpretation Code Description Data Mellissa rce(s) Supporting Document(s) Bicarbonate [Moles/volume] in Serum 25 mmol/L 22-29 [facility] Chloride [Moles/volume] in Serum or Plasma 98 mmol/L 98-107 [facility] Creatinine [Mass/volume] in Serum or Plasma 0.57 mg/dL 0.50-0.90 [facility] Glucose [Mass/volume] in Serum or Plasma 153 mg/dL 70-140 [facility] Potassium [Moles/volume] in Serum or Plasma 3.7 mmol/L 3.4-5.1 [facility] Sodium [Moles/volume] in Serum or Plasma 134 mmol/L 136-145 L [facility] Urea nitrogen [Mass/volume] in Serum or Plasma 7 mg/dL 6-20 [facility] Anion gap 3 in Serum or Plasma 11 mmol/L 8-15 [facility] Osmolality of Serum or Plasma by calculation 279 mosm/kg 275-300 [facility] Creatinine/Urea nitrogen [Mass Ratio] in Serum or Plasma 12 [facility] Calcium [Mass/volume] in Serum or Plasma 8.2 mg/dL 8.6-10.0 L [facility] Glomerular filtration rate/1.73 sq M pre dicted among non-blacks [Volume Rate/Area] in Serum or Plasma by Creatinine-based formula (MDRD) >6 0 [facility] Glomerular filtration rate/1.73 sq M pre dicted among blacks [Volume Rate/Area] in Serum or Plasma by Creatinine-based formula (MDRD) >60 [facility] ID Date Data Source [id number] 10/24/2019 04:49:32 AM [facility] Center Name Value Range Interpretation Code Description Data Mellissa rce(s) Supporting Document(s) Magnesium [Mass/volume] in Serum or Plasma 2.4 mg/dL 1.6-2.6 [facility] ID Date Data Source [id number] 10/24/2019 04:49:32 AM [facility] Value Range Interpretation Code Description Data Mellissa rce(s) Supporting Document(s) Phosphate [Mass/volume] in Serum or Plasma 3.4 mg/dL 2.5-4.5 [facility] ID Date Data Source [id number] 10/24/2019 04:49:32 AM [facility] Value Range Interpretation Code Description Data Mellissa rce(s) Supporting Document(s) Troponin T.cardiac [Mass/volume] in Serum or Plasma <0.01 [facility] ID Date Data Source [id number] 10/24/2019 04:49:32 AM [facility] Value Range Interpretation Code Description Data Mellissa rce(s) Supporting Document(s) Thyrotropin [Units/volume] in Serum or Plasma 0.656 u[IU]/mL 0.270-4. 200 [facility] ID Date Data Source [id number] 10/24/2019 12:22:55 PM [facility] Value Range Interpretation Code Description Data Mellissa rce(s) Supporting Document(s) Procalcitonin [Mass/volume] in Serum or Plasma 1.06 ng/mL <0.10 H [facility] (NOTE) < 0.25 ng/mL Bacterial infec [...] to sepsis/septic shock. ID Date Data Source [id number] 10/24/2019 04:38:42 AM [facility] Value Range Interpretation Code Description Data Mellissa rce(s) Supporting Document(s) Lactate [Moles/volume] in Serum or Plasma 1.8 mmol/l 0.5-2.2 [facility] ID Date Data Source [id number] 10/24/2019 04:12:52 AM [facility] Name Value Range Interpretation Code Description Data Mellissa rce(s) Supporting Document(s) Calcium.ionized [Moles/volume] in Arterial blood 1.08 mmol/L 1.13-1.3 2 L [facility] ID Date Data Source [id number] 10/23/2019 11:28:46 PM [facility] Name Value Range Interpretation Code Description Data Mellissa rce(s) Supporting Document(s) Glucose [Mass/volume] in Capillary blood by Glucometer 152 mg/dL 70- 140 H [facility] ID Date Data Source [id number] 10/23/2019 10:30:47 PM [facility] Name Value Range Interpretation Code Description Data Mellissa rce(s) Supporting Document(s) pH of Arterial blood 7.44 7.38-7.44 [facility] Carbon dioxide [Partial pressure] in Arterial blood 34 mm[Hg] 35-40 L [facility] Oxygen [Partial pressure] in Arterial blood 158 mmHg 95-100 H [facility] Oxygen saturation in Arterial blood 99 % 94-100 [facility] Base excess in Arterial blood by calculation [facility] Carbon dioxide, total [Moles/volume] in Arterial blood 24 mmol/L [facility] Oxygen/Inspired gas setting [Volume Fraction] Ventilator 0.50 [facility] ID Date Data Source [id number] 10/23/2019 08:24:14 PM [facility] XR CHEST FRONTAL ONLY [id number] RESULTI nterpreted by:Stevo Mendiola, MDPROCEDURE INFORMATION: Exam: XR Chest, 1 View Exam date and time: 10/23/2019 8:10 PM Age: 48 years old Clinical indication: Other: Dyspnea TECHNIQUE: Imaging protocol: XR of the chest Views: 1 view. COMPARISON: CR XR CHEST FRONTAL ONLY [id number] PORTABLE 06/03/2019 4:37 PM FINDINGS: Limitations: Image [...] rce(s) Supporting Document(s) ID Date Data Source [id number] 10/23/2019 10:05:43 PM [facility] Name Value Range Interpretation Code Description Data Mellissa rce(s) Supporting Document(s) Fibrin D-dimer FEU [Mass/volume] in Platelet poor plas ma by Immunoassay 0.88 ug/mL{FEU} <0.50 H [facility] ID Date Data Source [id number] 10/28/2019 08:40:19 AM [facility] Cmnt XXX-Imp : Specimen source n ot given.Microorganism XXX Cult : No growth 5 days Name Value Range Interpretation Code Description Data Mellissa rce(s) Supporting Document(s) ID Date Data Source [id number] 10/28/2019 08:40:19 AM [facility] Cmnt XXX-Imp : Specimen source n ot given.Microorganism XXX Cult : No growth 5 days Name Value Range Interpretation Code Description Data Mellissa rce(s) Supporting Document(s) ID Date Data Source [id number] 10/23/2019 10:19:35 PM [facility] Cmnt XXX-Imp : NoneMicroorganism XXX Cult : 2019 nCoV Real-Time RT-PCR: NOT DETECTEDTest performed using the [employer] Xpert Xpress SARS-CoV-2 assay. This test is only for use under the Food and Drug Administration's Emergency Use Authorization. Additional information is available on the following FDA websites for health care providers and patients. https://www.fda.gov/media/348529/download , https://www.fda.gov/media/935772/download Name Value Range Interpretation Code Description Data Mellissa rce(s) Supporting Document(s) ID Date Data Source [id number] 10/23/2019 08:11:00 PM [facility] Service Cmnt XXX-Imp : NoneMicroorganism XXX Cult : 2019 nCoV Real-Time RT-PCR: NOT DETECTEDTest performed using the [employer] Xpert Xpress SARS-CoV-2 assay. This test is only for use under the Food and Drug Administration's Emergency Use Authorization. Additional information is available on the following FDA websites for health care providers and patients. https://www.fda.gov/media/634016/download , https://www.fda.gov/media/836091/download Name Value Range Interpretation Code Description Data Mellissa rce(s) Supporting Document(s) Microorganism identified in Unspecified specimen by [facility] This lab was ordered by [facility] and reported by [facility]. ID Date Data Source [id number] 10/23/2019 08:47:50 PM [facility] Name Value Range Interpretation Code Description Data Mellissa rce(s) Supporting Document(s) Natriuretic peptide.B prohormone N-Terminal [Mass/volu me] in Serum or Plasma 252 pg/mL <125 H [facility] ID Date Data Source [id number] 10/23/2019 08:47:50 PM [facility] Name Value Range Interpretation Code Description Data Mellissa rce(s) Supporting Document(s) Bicarbonate [Moles/volume] in Serum 24 mmol/L 22-29 [facility] Chloride [Moles/volume] in Serum or Plasma 97 mmol/L 98-107 L [facility] Creatinine [Mass/volume] in Serum or Plasma 0.79 mg/dL 0.50-0.90 [facility] Glucose [Mass/volume] in Serum or Plasma 113 mg/dL 70-140 [facility] Potassium [Moles/volume] in Serum or Plasma 4.4 mmol/L 3.4-5.1 [facility] Hemolyzed Sodium [Moles/volume] in Serum or Plasma 133 mmol/L 136-145 L [facility] Urea nitrogen [Mass/volume] in Serum or Plasma 9 mg/dL 6-20 [facility] Anion gap 3 in Serum or Plasma 12 mmol/L 8-15 [facility] Osmolality of Serum or Plasma by calculation 275 mosm/kg 275-300 [facility] Creatinine/Urea nitrogen [Mass Ratio] in Serum or Plasma 11 [facility] Calcium [Mass/volume] in Serum or Plasma 8.9 mg/dL 8.6-10.0 [facility] Glomerular filtration rate/1.73 sq M pre dicted among non-blacks [Volume Rate/Area] in Serum or Plasma by Creatinine-based formula (MDRD) >6 0 [facility] Glomerular filtration rate/1.73 sq M pre dicted among blacks [Volume Rate/Area] in Serum or Plasma by Creatinine-based formula (MDRD) >60 [facility] ID Date Data Source [id number] 10/23/2019 09:19:42 PM EDT [facility] Name Value Range Interpretation Code Description Data Mellissa rce(s) Supporting Document(s) Leukocytes [#/volume] in Blood by Automated count 21.1 10*3/uL 4-10 H [facility] Erythrocytes [#/volume] in Blood by Automated count 4.34 10*6/uL 4.1- 5.3 [facility] Hemoglobin [Mass/volume] in Blood 11.7 g/dL 11.5-15.5 [facility] Hematocrit [Volume Fraction] of Blood by Automated count 36.2 % 3 6-45 [facility] Erythrocyte mean corpuscular volume [Entitic volume] by Auto mated count 83.5 fL 80-96 [facility] Erythrocyte mean corpuscular hemoglobin [Entitic mass] by Automated count 27.0 pg 27-33 [facility] Erythrocyte mean corpuscular hemoglobin concentration [Mass/volume] by Automated count 32.3 g/dL [facility].0[facility] width [Ratio] by Automated count 15.6 % 11.5-14.5 H [facility] Platelets [#/volume] in Blood by Automated count 329 10*3/uL 150-400 [facility] Confirmed Differential cell count method - Blood [facility] Neutrophils/100 leukocytes in Blood by Automated count 80 % [facility] Lymphocytes/100 leukocytes in Blood by Automated count 12 % [facility] Monocytes/100 leukocytes in Blood by Automated count 6 % [facility] Eosinophils/100 leukocytes in Blood by Automated count 1 % [facility] Basophils/100 leukocytes in Blood by Automated count 1 % [facility] Neutrophils [#/volume] in Blood by Automated count 17.05 10*3/uL 1.8- 7.0 H [facility] Lymphocytes [#/volume] in Blood by Automated count 2.43 10*3/uL 1.2-4 .0 [facility] Monocytes [#/volume] in Blood by Automated count 1.22 10*3/uL 0-0.8 H [facility] Eosinophils [#/volume] in Blood by Automated count 0.18 10*3/uL 0-0.5 [facility] Basophils [#/volume] in Blood by Automated count 0.16 10*3/uL 0-0.2 [facility] Nucleated erythrocytes/100 leukocytes [Ratio] in Blood by Automated count 0 /100{WBCs} 0-0 [facility] ID Date Data Source [id number] 10/23/2019 08:13:10 PM [facility] Name Value Range Interpretation Code Description Data Mellissa rce(s) Supporting Document(s) Sodium [Moles/volume] in Blood 131 mmol/L 136-145 L [facility] Potassium [Moles/volume] in Blood 4.5 mmol/L 3.4-5.1 [facility] Chloride [Moles/volume] in Blood 97 mmol/L 98-107 L [facility] Carbon dioxide, total [Moles/volume] in Blood 24 mmol/L 22-29 [facility] Calcium.ionized [Moles/volume] in Blood 1.02 mmol/L 1.13-1.32 L [facility] Glucose [Mass/volume] in Blood 111 mg/dL 70-140 [facility] Urea nitrogen [Mass/volume] in Blood 10 mg/dL 6-20 [facility] Creatinine [Mass/volume] in Blood 0.7 mg/dL 0.50-0.90 [facility] Hematocrit [Volume Fraction] of Blood 38 % 36-45 [facility] Hemoglobin [Mass/volume] in Blood by calculation 12.9 g/dL 11.5-15.5 [facility] ID Date Data Source [id number] 10/23/2019 08:13:10 PM [facility] Name Value Range Interpretation Code Description Data Mellissa rce(s) Supporting Document(s) pH of Arterial blood 7.53 7.38-7.44 H [facility] Carbon dioxide [Partial pressure] in Arterial blood 30 mmHg 35-40 L [facility] Oxygen [Partial pressure] in Arterial blood 60 mmHg 95-100 L [facility] Base excess standard in Arterial blood by calculation 3 mmol/L [facility] Oxygen saturation Calculated from oxygen partial press ure in Arterial blood 94 % 94-100 [facility] Lactate [Moles/volume] in Arterial blood 2.1 mmol/L 0.5-2.2 [facility] Bicarbonate [Moles/volume] in Arterial blood 26 mmol/L [facility] ID Date Data Source [id number] 10/23/2019 08:16:15 PM EDT [facility] Name Value Range Interpretation Code Description Data Mellissa rce(s) Supporting Document(s) Troponin I.cardiac [Mass/volume] in Blood 0.00 ng/mL 0.00-0.08 [facility] ID Date Data Source [id number] 09/24/2019 09:03:58 AM EDT [facility] Name Value Range Interpretation Code Description Data Mellissa rce(s) Supporting Document(s) Progress Note [facility] OLGVHa0yYzXYIsCe78/ENJsoXWJam6GbRQyxBRk5CUmvEWOmX9JhVGN5tP0kCVK1VQpXYuOnXcZpYvZ6 lbm [file] RxXMnkPiRvBt6CFNXIQ6UBOt== ID Date Data Source [id number] 08/13/2019 11:24:[address] 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 [file] uxy6z65SytLq8yWfFA1VlKsQi1M6VZdsvjHAUSVkfpdztglXO65D34ovnbWeRJbmiWsPIG4u4z8zA+LIME BOILER 5ZzgG6h7o/RIAHXIIqOjUM5XvrvGw+1x++qKd13wvXCCYmX8wWu2qZjidONGIir71QRJRJqNPHC1R6Yt /8bdL6YyHY0M55mu5BSAazQsPOTvI1J4pYliGzeX59 fX9FS9ntsAyBtxgN7rxM7qZXIG9hq4qyeqbf6vHb6BS3LPCEGR6o0s9PcH4HjjTV1XH5VwhAUtEFu8ow qPfrD1Ry8wXp8+ERHi5If/QykGHvYEKfG5QD22yZ7PAnwmfzmd6T1GYWeIni8ZJhz8ltfnjEvVAD0g+V HMh2jHG1uBsrh3kd/r4XqYZMa62naG3ifeWtihO7XS COh9fbACncL+VVmSugr5UKKn4aMOulpyHZ//Ijz3dx/4b5cE2lTJhfSK9uGJnSGrE2Fa32qCZ3YrN0nL MJeosxDSJv1kPxDnlz3ym5rL5g2WWui5yVNCk1cHY0zWqyzZmvIpPcWziw7n+Roct91Z5iMiJcI2Aiwq gGI5CTfClvb/f/KmH/gp1HS5l00030ViKWikmAyCA0 ONz5g3hCkPAHLSGJpQobyczFeJQ4T/McudL7p2X3Z4D8XN7MtVfjQfCdsWOiiAad006Tyl0x64JtJI13 QWZl283m1CtRo6FatnSgrOqLxYmf8OX2P2iSujWWnYX/cfHdX6tqRISKIBLzEd3vi6YOhsbYw0PQjor2 twp1OGNTZSRGmInA4OjqX+LBwVCy1TvpbZ7RP8E71e aV8Vh29+R8+/bsSQJ4oCpeafuG+r8kdryIB9A373y7iTlju3nsjGdDCQtL01H6CJ9+v6+a8sTOLC1wzT hRNw4lMZz8R3iySRb75REFheNl4obPeL9TmidOimLxpseD8mPbogcaW8tINQH1Rx/1eXztvSzmcniLQV fPAWb+s7ETMRqEHJxMD0Mrqxz972fKNzb/MnRcBC6+ 7IBVCWNtKLt2MNXYoX//Danielito/YG+jhhZEICbjSX/tNK2fqcFeEhAJoDTGK/RsRLLWHMtf2Xpi1OQa7DHGG [file] 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+/jdpusbE5amiUM8BxMNNC5QeUrcOfPUV609+fKQuI9LYAxHAO/EyIpq248PHx1ArICdYx888sFrb +BQvB2WhLxNdAFNLGd+kF/9LuJ7jlVVU2ZcgBx4AmRNO0j77HCHF6qSAehROd36qH+vQQFpS6HuchWPd kXpeKFFAbmTcwYhcpuPDq6ZSjhd4juYEvbrCAFP5Iy 5X+tCvIiIpow5r0YlucmCTW1rjONogJT7qB6nFQ7M2XiAAZM+BQbd/XH/NK/6XaKd+wKNjAXu/G5vDHB f0R6c1tcR3HmL6TMebyHL7gZqSbPXvMVXMSp1UrtsGNOkkrIUDDJggrw/RJU04FCdb7Wj2NfG4n1yKA+ KchcLM/wnqztFBlhnogsIE31ML83xU/rwfAWf34H4x 21LuB2IVDLIJOKPIAW4ABVzJOxhKf2l7Wj/HyljHCejavh/5nsksGeNMTmBd2bjTUJ9L0qUAhEfRM9po T+y0G0Uas411MTGBvxaGRPlm+HRiqegvjVFXDEAIa/hogICHrJqkKYSLgof9c/4jlsyNi7YCxhHEqlXN u7gqDE4RRmsNflVOWoKuXfbvOmii2HDGSHgqkgrNEU AkRVUAzxLR26lz+DvMIZRKi4VfPuE054P26N3d09vAIX5z2gE1I+DilG3fBFK30hf+UPaqnvHFTlxewC DNK824PoJioJHQd5phDYcGwP7PewK99uh4VBqO3etsxdvrBTEdFMFe+daXfBOUnyILmg0HMt6YGSlyzP 8dRZUSIX8fb7zF+NzLvr+RlVRufitWGnFYULNUYZdt FERNANDO+HFupNCvVaJg2Z/Gl/Cu/LKtXzvIjyDUxrI/C7yipGya1YwT5+U65B1kg+zRtj4mmgG8jHqy6IsW3 [file] AgICAgICAgICAgICAgICAgICAgICAgICAgICAgICAgICAgICAgICAgICAgICAgICAgICAgICAgICAgIC HeBKIfWWEtJYQlJPUbXUYcKFKxTZHaQE6XOKNtCALs ICAgICAgICAgICAgICAgICAgICAgICAgICAgICAgICAgICAgICAgICAgICAgICAgICAgICAgICAgICAg AYUkNBAlPWHfXENgDFXqSKCgTIBoCYEvIIAcYPXdTITsIV6IDETuNAIpKKVoHWJwXYEqTHZgKWKdNCJt ICAgICAgICAgICAgICAgICAgICAgICAgICAgICAgIC QzEMMePUUlJCTkRBFrVJRnGDBrEUFoVGMoFAHxZKGsEJGiBXHsULFoKWIsFF3WXZSjXTUdQWCxZSUsMJ AgICAgICAgICAgICAgICAgICAgICAgICAgICAgICAgICAgICAgICAgICAgICAgICAgICAgICAgICAgIC CrIIKwLTVsZXPyIYLiUIKfCJApTWReZASeSW2LDNZm ICAgICAgICAgICAgICAgICAgICAgICAgICAgICAgICAgICAgICAgICAgICAgICAgICAgICAgICAgICAg CIIdIXRcXRYrLUMpRGOdURMzMIRqKYIcMNTkTWQpQKQpGVRrIQ6LNQNsPQQvEGGoIXEaLJBoSZBnELAo ICAgICAgICAgICAgICAgICAgICAgICAgICAgICAgIC NaSEGvHHEtWTRsEQZeOGHnQBVkUAFeRLWdSYJxLSLaCJBaBHTsVSCyNJYbRFGvYL8DSRCuXBUlTIUiNZ AgICAgICAgICAgICAgICAgICAgICAgICAgICAgICAgICAgICAgICAgICAgICAgICAgICAgICAgICAgIC LnVTElAZZgLMJcDQUrKNIjBQKiONLkEEBfVKJfAV9U ICAgICAgICAgICAgICAgICAgICAgICAgICAgICAgICAgICAgICAgICAgICAgICAgICAgICAgICAgICAg BQAqGQDeVVHqMMMxECBxCOTtMFWwADVgDBTjXQMkENSeADAaCENcHN3LNTAvJGGvAAMuZEDtQNSpCUXk ICAgICAgICAgICAgICAgICAgICAgICAgICAgICAgIC QfCEPuPXKxOLThNFWdVGJrUOSoQSChQDDgTRMgQKKkSPPjMHZiZSLjGXSnYFObYNItIR7TSNDvPLUeXI AgICAgICAgICAgICAgICAgICAgICAgICAgICAgICAgICAgICAgICAgICAgICAgICAgICAgICAgICAgIC AgICAgICAgICAgICAgICAgICAgICAgICAgICAgICAg BW9AMP31zYDgl1Y6ZVEhUX3zwft/Rf4RJGjaurUddFDiMK1NPyHeNS5mik2WNnYnCK8fic0RQWlSKxLo X8K4jYEuRZLsLLZLDlQvH29tMWcuEg60WOvsJCIrKoVxUOk7Oo5QGzOfN7obZRNtXoI8QFHrHlJ2YUYq BrG1HVOxKgNaLHXdECHjBG4QYLYtE381pqZgBV2RHi 1FFdWsJO9aee4DPrdfQCJdEpdDDyt4BCydHP4LnTNjA0YczRBby4aWRvYvO8SXQOW2DKCaGs3HRYDsNs PfMUPxHZkjGZ9aAUYzAUDEfMucahK2GW2HKP5bsrNwBE1YFeFtAu2jNv2RIkCuD6YhW8IlYIGoHKDJMU jpTD7LQMKwVII4ECGbYkWjIXUPRnPfN14iFK2OE1Bs g51tKdD5ETPtQwLsAWwiGO78eQpdmpNymQWibAzbKX6FBj9+DQplbmRvYmoNCnhyZWYNCjAgMzkNCjAw INBiNLKdLRGwFdR3NyKtBo0JXELmVAAqJIZlRwFwCLImZMThNNceGLEwHVV2JVE2MDGaQKClFK0WSeLp MURsKgG7MtzwVXLrLYHbbv6QIUXiUTIuKOJ2PLOyMI UhIGYoROrnOLEqGLMeKnteXHMsQHKhIN2RAvLaSQEnMFI5SyCsAEXzIDMeqw7NCKRjEVVvUhEyZrXwAT QfEKXnQBuzNDEdYCE2RvIrOYFiROHyOK8DQnIeFZJjCWw6DxehHELvGGWhwo7DTYOwIKWzJGgjOATyJH TiOIEvLAdoNHFyMSA4Eoh4PDPlCDJhMA8RQzEmCBEj ZOt9ALRmTEXyZRGdmi9IDRRvUFNfGTr3ErKiFBFfQGKnEBwuLSJtXBJrRXXsIDCdGTXtEU8KPdEcMTCf MSNrLZBaIYXfIVIlzu7VXKCmTZBoVjNdGtRmIJKjLLZxCActUHMyOVMxZQT7UOGrJWWyHH8JSkCgZBQk UON5ICEmDXUxUYWjso0ZXHXcFJRuXlQ8DIPfKCGyCK NtWTqbLZYmQSGrNsAaVLLzLIQjKH9NNqGmWDIqIWZ0BkGwPMLnXHGjnk1KINYuGWKrUQJgDQRoFYZhPK FgVPffDCEkWLQkBsI6MIIfWFMyXR7KRyFpPLScZtB7QfFiCSDvPKQaod7MCTWiSDGsHPRqGVBlPIAsUF BdIFbbBOIxZSRtNMQ6KIHgFKIlZX1WWtCqFFDkZaR3 GHcjQRGvNBNuzy7MPFNfOEL6HdG7XIOeQVPkTQOpVFqwRXBzAVyuWbY9NIWvYENxDV6MIyCeDAEtLXG0 KJIdITCyMZAwme9OYOBaZIEdTDK1JLXwFUXwROZkGNebWEIzVPQ1WHrdJBXrBQZbLD7PTqBgJNWeXxUj LGemTNObPMCylm1BIDAsTLP8LzR9UKHwVDIfOUGlQW bxAUUvSEK5HQJ7FLHfVCTrUB4EMpLtJNHeXcl9GverYCUoYJFuzc5TZWHoMOU8WAP2KmBvTQUwUVMxHO xoQBUmKOtuVRD2RFExNMUzRH3MPqLjEJagQZRUAkk8VAdvX4d8OREoBO7DI3Zsm5GgHlroNMREUJpfNO 2cqyIaKXGzOi9WU9pQTxd8NAMnXuOvUVncHSCzMiFa QEYtZQIhOsU5AJV2KLYtKo7tFUijT5LsACDtMKF6QhAwMCT6PHH5SyEnAVDmQli3VPU7TbCfCD2HCz5L UiZ0SWP0nJYzVu5ZYNlyHyMoXMzpYAAVGo9H ID Date Data Source [id number] 07/13/2019 05:06:[address] [facility] Name Value Range Interpretation Code Description Data Mellissa rce(s) Supporting Document(s) &PDF [facility] CQVZPe8vZgLWZmPt91/EHAqeFXGxn3OqVOvuNJm4VCvtYIFrB8IfvEmrHEdKO2XASqqYEYGENWAJNV3q G [file] AgICAgICAgICAgICAgICAgICAgICAgICAgICAgICAgICAgICAgICAgICAgICAgICAgICAgICAgICAgIC AgICAgICAgICAgICAgICAgICAgICAgICAgICAgICANCiAgICAgICAgICAgICAgICAgICAgICAgICAgIC AgICAgICAgICAgICAgICAgICAgICAgICAgICAgICAg ICAgICAgICAgICAgICAgICAgICAgICAgICAgICAgICAgICAgICAgICANCiAgICAgICAgICAgICAgICAg ICAgICAgICAgICAgICAgICAgICAgICAgICAgICAgICAgICAgICAgICAgICAgICAgICAgICAgICAgICAg ICAgICAgICAgICAgICAgICAgICAgICANCiAgICAgIC AgICAgICAgICAgICAgICAgICAgICAgICAgICAgICAgICAgICAgICAgICAgICAgICAgICAgICAgICAgIC AgICAgICAgICAgICAgICAgICAgICAgICAgICAgICAgICANCiAgICAgICAgICAgICAgICAgICAgICAgIC AgICAgICAgICAgICAgICAgICAgICAgICAgICAgICAg ICAgICAgICAgICAgICAgICAgICAgICAgICAgICAgICAgICAgICAgICAgICANCiAgICAgICAgICAgICAg ICAgICAgICAgICAgICAgICAgICAgICAgICAgICAgICAgICAgICAgICAgICAgICAgICAgICAgICAgICAg ICAgICAgICAgICAgICAgICAgICAgICAgICANCiAgIC AgICAgICAgICAgICAgICAgICAgICAgICAgICAgICAgICAgICAgICAgICAgICAgICAgICAgICAgICAgIC AgICAgICAgICAgICAgICAgICAgICAgICAgICAgICAgICAgICANCiAgICAgICAgICAgICAgICAgICAgIC AgICAgICAgICAgICAgICAgICAgICAgICAgICAgICAg ICAgICAgICAgICAgICAgICAgICAgICAgICAgICAgICAgICAgICAgICAgICAgICANCiAgICAgICAgICAg ICAgICAgICAgICAgICAgICAgICAgICAgICAgICAgICAgICAgICAgICAgICAgICAgICAgICAgICAgICAg ICAgICAgICAgICAgICAgICAgICAgICAgICAgICANCi AgICAgICAgICAgICAgICAgICAgICAgICAgICAgICAgICAgICAgICAgICAgICAgICAgICAgICAgICAgIC AgICAgICAgICAgICAgICAgICAgICAgICAgICAgICAgICAgICAgICANCjw/cWQqA2aglYJgorB2N9wnIu 5GWy5XMJ9rf2DoPIMdPOayzoEhBicJPbYxEKRcAemR Ubd9TCtcXL8ShOLlP2ObZ5TbKEpdME3KIFDtTSHauGJbUEGmKCYwJpO4QJNdKLcoPB8DwEZxVVmaWXOh GPBuVcCiDPPxBF8IYOHfX317upQsFe4VJg9JPiYsRB8aee8ICpQxQSLjDxlBVds2GZgwUG2OoQKyP0Sk yLVri0uECkEyX6JLEBT1YRShNw6DPJDaAeTeOEMhYT enIF3aATOiILFYmXxinvP0KW9AAF3cbvJeSR2CTrMiFb5kMn0QNsIsH7GsU3MzQKMtFZGDSPsvTO1NXQ JuJOY9UXFjUKYhIUWQEzNfS29dKM6RE5Nbt89zDiC7CVDwKuLmXUxuUC86cDmarxYkcOJgvSwmRK5HQb 4+DQplbmRvYmoNCnhyZWYNCjAgMjINCjAwMDAwMDAw IAGqDwF7AaMsBt4PAWQpFPFfUZGyXkOoLLXlETFvOQinFQYmCPE8IrWtFVHlXXKlYT1UBzZfIURuBWl0 FTZxCLRgIIEzsn9ATQLyTMYkPQR7MZIrCNNzYWFlXEtbFGYhOPSoEfe4LALrFHHjOF8NVfTyLQSfAPN5 KPRwAXEcMEImfg1SHYQaVTJlVWT9TbPhHKLxENHmSM fpIXFuBBS7OMvlTTYgZTVsAC1TMuJcKRLgXQK6TkrjEEWsWWAejl3PUXSsHEVpHxJyBCWfZBZwERPmKT gjJIXxSAT6KYL2XVWiMPFwAQ0HLiTdCETzTHt3YuNlBVApCSZafu3ASVSvWTTzSjg9ArVhFLEfQIObAQ vnSNKvTUH2XSL7NREqFTUdBM3VEwQpVTLzCDwlAmRx YGSdOPJinj9CYAHdQRYhAHGzYNSeGGNkAUNuPWxcJSSmABR8NOA6CPPaPIJsSH5ORgSmAEUkNBJtSNCk QGRcZAKirv4NOHHjRPKoPSKgQDDgZQEkLJDpPPjoGWGiZTX2WiZfZIBbTFFkEH1ZYsEvSWEhOsUsEZNc JQBlDWUgcm0DbNExzYfppm3BDNsPEm6DhMmeOZMbWS yuLj8ykOHeNSHeACNWVn0DwlWlAPLsSWCYZXwuPMCgMBQ4DYJbXOsvPOX5BZQdFGG2TAK7IdHkOOS1UC rpWUSpRxI3SnbtEHC1TDAiMDBbLTZ5PYHdJELyDDQ0HJA3YsYjGjO+XW3vVRt+Ma3Ip8HzhzS1vbXvUU bbFSY6GH6ELQVDD8SQNf== ID Date Data Source [id number] 06/29/2019 07:17:00 PM EDT [facility] FASTING: UNKNOWNReceived: 06/27/2019 at 07:07:00 [facility] [address], [address] [place], [address], Giorgio Lozano MD Received: 06/27/2019 at 07:07:00 AMD : [facility], [address], [place], [address], Florian Oseguera M.D.,PhD Name Value Range Interpretation [...] is approximately 13% higher for peopleidentified as -Gibralt[place]. Glomerular filtration rate/1.73 sq M.pre dicted [Volume [...] results) [facility] ID Date Data Source [id number] 06/29/2019 07:17:00 PM EDT [facility] FASTING: UNKNOWNReceived: 06/27/2019 at 07:07:00 QPT: [facility], [address] [facility], [address] [place], [address], Giorgio Lozano MD Received: 06/27/2019 at 07:07:00 AMD : [facility], [address], [place], [address], Florian Oseguera M.D.,PhD Name Value Range Interpretation Code Description Data Mellissa rce(s) Supporting Document(s) Natriuretic peptide.B prohormone N-Terminal [Mass/volu me] in Serum or Plasma 170 pg/mL [facility] For Heart Failure (HF) diagnosis, refere nce ranges inpatients with dyspnea are based on Chel MCCURDY, Et al.Am [facility] Cardiol. 2018;71:3985-4878.18-49 years:<= 300 pg/mL Normal, HF unlikely>= 450 [...] Clin Biochem. 2010;43:1405-10.For additional information, please refer [email or web address](This link is being provided for informational/educational purposes only.)NO COLLECTION DATE RECEIVED. WE HAVE USEDTHE DATE THE SPECIMEN WAS RECEIVED BY [facility] THE COLLECTION DATE. IF THISIS INCORRECT, PLEASE CONTACT CLIENT SERVICES.PHONE NUMBER: [phone] ID Date Data Source [id number] 06/08/2019 02:17:02 PM [facility] Name Value Range Interpretation Code Description Data Mellissa rce(s) Supporting Document(s) History and Physical [facility] ZXEMYe4qEmWGBzUv81/DREfeUCUcv5JsVTotAJx5JJfwEJIrB6PuMOF3sL9zZMQ4QQjUAsPhEvSsSkAe m [file] AgICAgICAgICAgICAgICAgICAgICAgICAgICAgICAg ICAgICAgICAgICAgICAgICAgICAgICAgICAgICAgICAgDQogICAgICAgICAgICAgICAgICAgICAgICAg ICAgICAgICAgICAgICAgICAgICAgICAgICAgICAgICAgICAgICAgICAgICAgICAgICAgICAgICAgICAg ICAgICAgICAgICAgICAgDQogICAgICAgICAgICAgIC AgICAgICAgICAgICAgICAgICAgICAgICAgICAgICAgICAgICAgICAgICAgICAgICAgICAgICAgICAgIC AgICAgICAgICAgICAgICAgICAgICAgICAgDQogICAgICAgICAgICAgICAgICAgICAgICAgICAgICAgIC AgICAgICAgICAgICAgICAgICAgICAgICAgICAgICAg ICAgICAgICAgICAgICAgICAgICAgICAgICAgICAgICAgICAgDQogICAgICAgICAgICAgICAgICAgICAg ICAgICAgICAgICAgICAgICAgICAgICAgICAgICAgICAgICAgICAgICAgICAgICAgICAgICAgICAgICAg ICAgICAgICAgICAgICAgICAgDQogICAgICAgICAgIC AgICAgICAgICAgICAgICAgICAgICAgICAgICAgICAgICAgICAgICAgICAgICAgICAgICAgICAgICAgIC AgICAgICAgICAgICAgICAgICAgICAgICAgICAgDQogICAgICAgICAgICAgICAgICAgICAgICAgICAgIC AgICAgICAgICAgICAgICAgICAgICAgICAgICAgICAg ICAgICAgICAgICAgICAgICAgICAgICAgICAgICAgICAgICAgICAgDQogICAgICAgICAgICAgICAgICAg ICAgICAgICAgICAgICAgICAgICAgICAgICAgICAgICAgICAgICAgICAgICAgICAgICAgICAgICAgICAg ICAgICAgICAgICAgICAgICAgICAgDQogICAgICAgIC AgICAgICAgICAgICAgICAgICAgICAgICAgICAgICAgICAgICAgICAgICAgICAgICAgICAgICAgICAgIC AgICAgICAgICAgICAgICAgICAgICAgICAgICAgICAgDQogICAgICAgICAgICAgICAgICAgICAgICAgIC AgICAgICAgICAgICAgICAgICAgICAgICAgICAgICAg ZUBdGCYxGFQnUKAfRBJcVPYuAJFpBXJpRFGxAOLtGHYaNYZeLZZgQOVeNSd7K1dpTFGgBWObGE8bFUn4 Jz8+WUkKIqYtQEN4koZrxY6AKR2ki7XdDMwbQIGvr1PqMPm3HI6OZEQcTCkoWD8HLXuboj8TXMTqQZUy tGRJx6ruRmXsFHY4VRUdFdyzRD9TAFRxE4glajVaGW UgJJWDJIqdVUTAIFtbMRBOOVHvQNDnLwZtJMhoJX5Lo3QjiPC9ZDg+Qg8DMB1jv7FnZQuuFLIkGN3wgi 2PHUkGAzLnS2DftcB9KULmGSOcMg5VOKChLQIzbJDkNrOqUNABOfHcC8HlyX70VGEGAo4+DQplbmRvYm kWMgOlORJgn1QbXLt6ZM7OIRAqAYg0uVUhPRKGCLO9 YSF5UyWfuUCPBEI4PLblbKsgMP0NKiEnKSDzSc4ySt3rEQLkJPFtSyN2YRDOXN7UYSUhCDEllPXtWDBv NIMXRR7OXGbtBRE2QOGbghLcvDOcUMjzPA4SLISqtaStGpNlQADHSHy+Uu0PLO0yk3YfXVatFlObRE2n ad7CDWmZOdYaE8G4oXUvU7D4KDntPy8FWHShBORfSz mrUAPMGMssQQ5FUJ1tjwR5ZU7NeCRiEPSbXVIeiANcENq1Q49yzTHfPKlwZX7BWUQ+Isiah+Jm2FQMTlGB YxQBKoSrXuLVNOMqLzN9WcK9NWb3UnQ4LhUG55hBhrmkRpGKtpAE8MVU9hIOSzMTWKBG9LgRYpjY9qkr MaQHPfZMCHFvTzL04beVIzDSElOIMyXXYhXt4HOGOm L9MyopXuzEskrbXcYLKzPKJBAA5ZLCkiuvHldFPtzNucQN34nIzzBF8PYk6TByMxIH3uwn6HeHEnKf3K NXMcJT4QXLYwFMUyAOWeHQV0EFIzHrLpVBgqDLSdJWQnGJC6IYXmWMBtVW8MXrPnDWEuApO4FEZhZOXr BTUjaj7IWVEjIGYtNgJpPlBtVQLyNHDuWYklUGVyGV GqNMP5SOReAOBhWL5DWzCjRNXwXYArSOMmUDBtWSQlsw0QTECzRYVjKiM0HhPuLOTgHKFtQCkmYIKgAH Z2Iyi3BDIgPZNxKE3NNeLwHQTzUVA9HZQpYFAkBBIwpz7HRAFxEUCdBNK9SKDnNBAiDYQtQDrgIYTdAE BpJRa5HWTqANEeKN1OWuHwIQUvHCY0ZMOsYBDjJKPl qu8HCGGcOKMeDiW7PCEyLUGlGGQhPLcxOMUzQSI7NMN9VQKrUVMdPD2SVqHnLMUdNUSbTDEcZKUmFNTc gf1FIKUvEDXhOKOiJKQoZSRpVOLmCXepBCCgAIG1Kmq3NAOvKPBvQF0WGsZbWOSeJVT4HFluUKDiPTHv ev3IIMBuRMUfKDv0RiZrFHAjNKIeFZovREUfFDZ5Id Y0OMCfNTQaXQ7CEeHwPZNlNWM0DVZkMOBxJXOxno9TOGGyOVBaLrDmUmWwRUOcAIHxCOszZEFsCYR9OY KgNMSdZENmHV9ZJeBiADBwFcq5ZxLyFQSuRMZuiw9FTWXyLWSrARKzPVYjWUTkNJTqYFoaKLKsTJZ6Iy x7ZGDqFFTpIN4UWaJpCYPvMqp7XcHeSOLgFCVbyn2V PRGbNAMuEFA2QOLyCOIoRDAmXHzfZCMrKOJrFLP0NVCqVIFsJD0CAgYcIZKeLdU3XbNdOWSoLPHzde0E DLOcVOZoFDV9OlNfXJArQOWmOZtmBLNhDANlVkY3FYRiRRDrMU2TRaDyWJSfGvI3MORxOTIlUJUnbf8S VQAxOZQmBpmhUuTxVQXsQEGmNIz3roNziSTzOOg1LZ 8EP9UruuYnXrKYIe4Ch205DRCxPSWzBm0RJ5noJt5rWFAiXUNZLm1OIUy9PFK0QRZaGoC5NAugClV2PJ JlMDYyMjJhYjUxMzkzMjA+YQpdCLG0FZWjGjR0GRHxFAr0BiBtMlKvGyTeGHQsGBWaHL3uKAYRQs8+DQ cgaPGajXujGAHSDfJlVWmjMVqxJXBKQj9L ID Date Data Source [id number] 06/03/2019 05:03:04 PM EST [facility] Name Value Range Interpretation Code Description Data Mellissa rce(s) Supporting Document(s) Progress Note [facility] WTXNIa0rKhDWAfDf64/EDIyhCJQgp5GjYDxbYOt2PZnpTQApQ7UvUIV9bZ1fETV8QThEHvVuMzIgQwA4 lbm [file] ICAgICAgICAgICAgICAgICAgICAgICAgICAgICAgICAgICAgICAgICAgICAgICAgICAgICAgICAgICAg ICAgICAgICAgICAgICANCiAgICAgICAgICAgICAgIC AgICAgICAgICAgICAgICAgICAgICAgICAgICAgICAgICAgICAgICAgICAgICAgICAgICAgICAgICAgIC AgICAgICAgICAgICAgICAgICAgICAgICANCiAgICAgICAgICAgICAgICAgICAgICAgICAgICAgICAgIC AgICAgICAgICAgICAgICAgICAgICAgICAgICAgICAg ICAgICAgICAgICAgICAgICAgICAgICAgICAgICAgICAgICANCiAgICAgICAgICAgICAgICAgICAgICAg ICAgICAgICAgICAgICAgICAgICAgICAgICAgICAgICAgICAgICAgICAgICAgICAgICAgICAgICAgICAg ICAgICAgICAgICAgICAgICANCiAgICAgICAgICAgIC AgICAgICAgICAgICAgICAgICAgICAgICAgICAgICAgICAgICAgICAgICAgICAgICAgICAgICAgICAgIC AgICAgICAgICAgICAgICAgICAgICAgICAgICANCiAgICAgICAgICAgICAgICAgICAgICAgICAgICAgIC AgICAgICAgICAgICAgICAgICAgICAgICAgICAgICAg ICAgICAgICAgICAgICAgICAgICAgICAgICAgICAgICAgICAgICANCiAgICAgICAgICAgICAgICAgICAg ICAgICAgICAgICAgICAgICAgICAgICAgICAgICAgICAgICAgICAgICAgICAgICAgICAgICAgICAgICAg ICAgICAgICAgICAgICAgICAgICANCiAgICAgICAgIC AgICAgICAgICAgICAgICAgICAgICAgICAgICAgICAgICAgICAgICAgICAgICAgICAgICAgICAgICAgIC AgICAgICAgICAgICAgICAgICAgICAgICAgICAgICANCiAgICAgICAgICAgICAgICAgICAgICAgICAgIC AgICAgICAgICAgICAgICAgICAgICAgICAgICAgICAg ICAgICAgICAgICAgICAgICAgICAgICAgICAgICAgICAgICAgICAgICANCiAgICAgICAgICAgICAgICAg ICAgICAgICAgICAgICAgICAgICAgICAgICAgICAgICAgICAgICAgICAgICAgICAgICAgICAgICAgICAg ICAgICAgICAgICAgICAgICAgICAgICANCjw/eHBhY2 xrzODbcfL1Y2byPp7RIy1OXD9wa9VbHXZaCLmudqLfIemOJgPmCSEoHcuCAkv1FWrgBH3DqQHcU8BuS3 QxBKcuLM2QHYIgAISjvGOaLFCfJZNhPoH0HDArDLnpOV8UqZNjKTtvNHXbEQOaEB7EHNTpF769syRcRS 3RUl1NMmKjTF4ibu2ZSCMbQINxEyiECga2EQblMH5I bXArzCKuZTSlQSIYCpAaE9qbp9VfFKEaZJYLILhpAU8Hx2XubWJyKZn+Oq3EJM2wq7AmXYdgNSTnSK7l br1GSVaLMtTlG1CtrEuxDQPwn1vcJATbLG5olPGsFQZ6XUY2vmIvzTYyVQZMs9dmXzwkJm0vETCgRy8x Qv6pPOFjRTL7ZdKjHIQVYH8THTJhQQYrgOYrFQOzXI SDLF5IWBffPGW6DQTeniJpaFHrHMrfTC6TVORchaLsISQrWOVNKWz+Cg2SCM2fl1HwJRadTmHvAM9say 2BRHoYEjBiG3B8gHNmY1V1JBwqXb1NYVGvUEOiYEJdUMWVRIiiNG3SMO5mquN8RJ0FwJBhMECqWQNpjT BcGSt0B77ysWCzTAjhER5SKVA+Isiah+Yq5ZJWPqQMDm LHDxFhNwQMUBGlXrN1RxN2WMa0NaZ7VgSX61nIaqwfIjKFuiPT4KHY8tWAEoLRCENO7HuESscR1rwhBf HYEcPOPZNxJhA83frVWgREGtEDDmSPNtHy5QIMGdB5UveoKrqNfbsxCpYTYdSXHDOQ6UFVoiwkSbvYBu qClkWM68tWgtDC0CMy8WKsCmEU8xqk7ElCPgBu2BXK UyYx8KPLWlNPAtDAPmMGY2QGGlJpWmMTdoBFLwQUBmCEX6CTItPUObHM9GCpAdMBCyUOJ4FqwuIGEhHO Msgb1OCIExWJNfBiJ8IbWuEFXtKWPsWBwgCNNkCFZtSZX6CPBhJXJcNX8RXkPmQPVwHIX6HYcvEWRtKN Wdbo1NPPKyWXVyUMfqKPGdYLEyFDXpBPmjANBwDYXz PohoVEZaJYNoHP3ILiClXGWwKGY9BbViIUTwAWCbrk6XPUFoMXDhQbY6PqJzVRGvRMDmSNpfPGCqKOV4 DHK4HHMxLJCiRK2XSrNiJRArFRPnQPHvECGkOTOrub1IWFIeDYSwOLZxCyCgYRZjEMYgFHvsNVHmHLC0 JGK2UHQqUTLlRO3TIiRgSPKyLAAmFANwMIQnLWNnrg 1LJFLwYKYrIeUjJqOfGADqWKAxPJeuZHWyAFS6JYI3ZXIfYKIhKU6TVjJjWEdeJQSUFfm5ATctC3d7YC BuKa8GK5Wqa0LaRCKqEMKMARlhTT9utgDaIPXcSx3XP9wEWpxwOjM7JSI4XJgcZzL8SwA7XbRiBldrLm CsRMQ1YHL3IR3xWFRfOhBoFBz6MTAhXhgpHDG3LyXl MOB7CtT6VrytGoCfYrQhDW1FIj2WJlF3YYN7kSVtEy6ZUjcgDB3WHJZHK6FMNr== ID Date Data Source [id number] 06/03/2019 04:59:58 PM [facility] XR CHEST FRONTAL ONLY [id number] RESULTI nterpreted by:Cale Larose MDINDICATION: Follow-up radiography after right heart catheterization.TECHNIQUE: XR CHEST FRONTAL ONLY [id number], 06/03/2019 4:43 PM, 75 degrees upright.COMPARISON: 04/09/2019.FINDINGS: [...] rce(s) Supporting Document(s) ID Date Data Source [id number] 06/03/2019 02:17:39 PM [facility] Name Value Range Interpretation Code Description Data Mellissa rce(s) Supporting Document(s) Hemoglobin [Mass/volume] in Blood 11.7 g/dL 11.5-15.5 [facility] ID Date Data Source [id number] 05/20/2019 02:12:01 PM [facility] Name Value Range Interpretation Code Description Data Mellissa rce(s) Supporting Document(s) Progress Note [facility] FJDCRf5eCpXIWlFd54/HEFssYSNkm5TjYCikWFb2KWnuOYKaM3XkENG2lC6bLGO3ZCgPHzUmJuDkRjSq lbm [file] ID Date Data Source [id number] 05/19/2019 11:49:[address] [facility] Name Value Range Interpretation Code Description Data Mellissa rce(s) Supporting Document(s) Progress Note [facility] CFJMNc6qFqUORsGg51/EZGvnXSWac9FyGDzyBWl0HDjdXIVaN0KgVPR4uU1kYHS4IUgAZwQfSiTzQxFg lbm [file] AgICAgICAgICAgICAgICAgICAgICAgICAgICAgICAgICAgICAgICAgICAgICAgICAgICAgICAgICAgIC AgICAgICAgICAgICAgICAgICAgICAgICAgICAgICAg FQKhSR1LGWZgXKMqIMYgPYLjIMUdYAUlXPSrXRBxRYAqBQDtPPTsCJIaURJjFJHqCTBqKHQnJILwKAHt YSGtQIDpDCKkWVYhYFIxEBOoNTUmIHOeBUDdPHDoRTCkRYTuLSLaAURvRKFkWU4IHMAdOQXjKSFhOVKi ICAgICAgICAgICAgICAgICAgICAgICAgICAgICAgIC JyYYVkRKYwZMVaPSAnCQQpNFDpXDNfMYNbBIOwEUWjRKInZBMxGCNtGRFlNQJhIMUzRUKbKTMjHJ3WWC AgICAgICAgICAgICAgICAgICAgICAgICAgICAgICAgICAgICAgICAgICAgICAgICAgICAgICAgICAgIC AgICAgICAgICAgICAgICAgICAgICAgICAgICAgICAg EXOtHTTuNC7GOAJuOZAuTCUiOTNqYQLfNYTmMZGtHIHrNVRoAVTcGIWyFELgHAKpROTlIAXzMGIcWZCj IYZhPCKyYRMvCAZoAYSrMIVnXRScDYHfNUMtOXYcEONdGCLcZNSnYBLyFYAxUEJhAK4WPYXeAOCmXGOg ICAgICAgICAgICAgICAgICAgICAgICAgICAgICAgIC AgICAgICAgICAgICAgICAgICAgICAgICAgICAgICAgICAgICAgICAgICAgICAgICAgICAgICAgICAgIA 0KICAgICAgICAgICAgICAgICAgICAgICAgICAgICAgICAgICAgICAgICAgICAgICAgICAgICAgICAgIC AgICAgICAgICAgICAgICAgICAgICAgICAgICAgICAg PJXeBIXgDQFfUU2DYIVrAYBlCMFsUUDkLEIxZVRzNNFcVFCkPDNjNWYsLOVpYJBtQUUuGNRjZNMwGUCx ODUyUEIcMLIcCVPlRHWjQTDzQPNjXPPxHLExUAZlKGGpAWQrBJVdZVEcMIHwMJZsUXSiJX8LGVTeEOJk ICAgICAgICAgICAgICAgICAgICAgICAgICAgICAgIC AgICAgICAgICAgICAgICAgICAgICAgICAgICAgICAgICAgICAgICAgICAgICAgICAgICAgICAgICAgIC SkDZ7TVDSeKGPqJBSuUVQsPYBqACUhXSBcGFYoMDIlHJEzGXAcRKYwUACuDMTmBPNwCWPoFLHeRCQrYJ AgICAgICAgICAgICAgICAgICAgICAgICAgICAgICAg RMRgYVTqUBViTMVvZT3STW47tYEvp5K2PDAtVL7cxmn/Ao3MPMfmrvUuqQCgAG1UEkPhDK6hjx4QStIb RI7tlf2OEEvWGgKxL8C8pTWbBNSmKTPWNdBbP01xRQjxWw97HRzdTGUcMxPlDSk9Nr4CToQkS3wiETLl LiO2WGIfZlK1VOHhJkDmMQbvXZ9Yb4GqoYPlGKu+Pg 1AGF8iy0AqBRunLDKkPH0uwv1HSYqBEhHaR3AfptD7RNV9YYPaYb2UJMTyQRQhoGObURRiOFBWXtEfS6 SgnL39JBKIXc6+BIufvbWcKvzOVlK1TSUyy7ZyOVa2YP3RDUEcYOr1vRRrOZUzP6Wui5JaHr10YRBxMv pkIERhyzONBTJhqLQnLY9EBZJ5PMFdUg0fZQCiDGY9 TgZpWCTPPE6LKHPjCHHjcXYaKEPkHAGOPU7ZVOibZSA6KNKufiUltXMxRFkxBP4APZBexnOuOvXiMSBQ DQo+Pr7BPM6mb7DzMGkoOgDkNI0cad1FAHwULpXeH4W0zKJxK6H9NYugYn4FUHAyMJJyRgCaZMOKPEeg UC4VFB3ewgM9FJ1VqEKwKJMrRJPbwWGeARg0T00nvN IzYDswDA7YRLP+Isiah+Rn4SCQIlELPeYWKaVlGxMHWRKmOvD7CfM0JYd9RgF2ViPS78eXhqsyNeTFjyNB 8URC1yOWAyPYSCWB9OjRZpvM3rlePcQPUxONLELxYjM88ksFBpOLPlHHToXCIwBb1MMSGcQ4NafwVztV ulpqHuVHTnINRNCY4RXQpfouNsiMSsiZeqTQ67bBql FC7YDo0TPrIuML4dyr8FaROyJf1KNTOpHc9ZNYEyYJYrDYMmELS6PLSdMeXvYYoxJXMaIMSyHVM6RBNl LYKhVV8QXgQiKMYfXpE2PoMkHETgBVZnli2UBAIwGKMnLYSpNDExCRPkXTMgCUmwWEXnKWIrFVF5ZUHa IYXoUD2ZGzQuBRRbTEGlUdtsKVOuULJyux9RZJXdVA DwNKVqBnHnYZBoWKRqIAxlOXNdMWR4Rqz3ETFpYJVkYB8FPxYkPHJnFYp2HBHmJJEeSVAzzh2NKVIlLI LvQSL9SGDvKBFlJVAeBJbzVNPjLJD4NwA9XKZeKIBmQH1DKsRhQCSpHNw1QsjeUFXhXIDzmg9ZDYBtMQ YeFQo5VrIgEAPsRHCbTHdoVTNhPDK0MGj6KPTuWJCy SG4BEjAsSYJcOHIsHufzPHZhGEBlfk2VCTFlXOAsTEIjUaVrUVGzGOVoAWsvVHAfSAJnVYP0VAOnESUg LP9RRqAvCPPsLdWhJBwhQECwHDYjll8SLGPyZSWvLtD6TgLdAKPqEFNiESjyRDNpHHUoKRHvQBJkDGQz PP4YCkOrDBGkMeQfRDAbPCVnEVIxgh4XYJRvWBYbQb F4YmFlEMMwYLVeHJgoKJBfKTGzNuFtXUOeRJAcUQ7CYpFhQDGbIuZbWnwsNTUxCOUcfw6JZHBrCATxSL LxUoZsOEKjIKPhRVmnLAXvJDP1Mbk0HMGgZRCnCG5LSuJrMMRnZnW9IhhiOZZdOHBpnz6UkHUvtTpgtj 7DDPbPUe4DrKtwHLT8AUhhZu4ndAEaRgMeYWHUWa5Z jbBwYQBaSJGUEVogNMCpJEKjVgG5YJH4VlAoWLZlGcJ8BLOaOrLzXyemGjQxMiSnPdN6MoStBVosJBc9 OHUoTWT9PTChZUK6QAG9SIRjFWVcSIR+VG9sVSk+Et1Vv6UzqpR2ziVdOOubHiE0Vn9HVXRIA6WSPp== ID Date Data Source [id number] 05/15/2019 02:34:27 PM [facility] CT THORAX WITHOUT CONTRAST 26006JYBLI RE SULTInterpreted by:Gerry Moyer, [facility]:48-year-old female with increasing dyspnea, who presents [...] rce(s) Supporting Document(s) ID Date Data Source [id number] 05/14/2019 09:36:43 AM [facility] Name Value Range Interpretation Code Description Data Mellissa rce(s) Supporting Document(s) Progress Note [facility] ECKHCn1wUkRLDqHi06/GPDnhXZZbi3XtRCuoERh6SDurYIAoB1NzOUW9wV9uZOE6LPuGWtYeQlAmHtE9 lbm [file] IAqpyUPmtOldWBJGMaM1TzD7SAfqKHVHQp2H ID Date Data Source [id number] 04/15/2019 11:08:59 AM [facility] Name Value Range Interpretation Code Description Data Mellissa rce(s) Supporting Document(s) Consultation [facility] ELKUGu3fSgQQWfPn14/VYIdaHTVzf3WePCtoBPa8ODipYDLfK9IzUCN3rG2aWJZ4BYfZYiXiQuNfOCI7 lbm [file] gx/9V7XjpEqTh+ldirn29Dc4g55ChVPMsYIHPt+OAwiqXjWtlhgtrSjm5CgkyTz5VcvzNHlLm/OM/+LIME BOILER [file] AgICAgICAgICAgICAgICAgICAgICAgICAgICAgICAgICAgICAgICAgICAgICAgDQogICAgICAgICAgIC AgICAgICAgICAgICAgICAgICAgICAgICAgICAgICAg ICAgICAgICAgICAgICAgICAgICAgICAgICAgICAgICAgICAgICAgICAgICAgICAgICAgICAgICAgDQog ICAgICAgICAgICAgICAgICAgICAgICAgICAgICAgICAgICAgICAgICAgICAgICAgICAgICAgICAgICAg ICAgICAgICAgICAgICAgICAgICAgICAgICAgICAgIC AgICAgICAgDQogICAgICAgICAgICAgICAgICAgICAgICAgICAgICAgICAgICAgICAgICAgICAgICAgIC AgICAgICAgICAgICAgICAgICAgICAgICAgICAgICAgICAgICAgICAgICAgICAgICAgDQogICAgICAgIC AgICAgICAgICAgICAgICAgICAgICAgICAgICAgICAg ICAgICAgICAgICAgICAgICAgICAgICAgICAgICAgICAgICAgICAgICAgICAgICAgICAgICAgICAgICAg DQogICAgICAgICAgICAgICAgICAgICAgICAgICAgICAgICAgICAgICAgICAgICAgICAgICAgICAgICAg ICAgICAgICAgICAgICAgICAgICAgICAgICAgICAgIC AgICAgICAgICAgDQogICAgICAgICAgICAgICAgICAgICAgICAgICAgICAgICAgICAgICAgICAgICAgIC AgICAgICAgICAgICAgICAgICAgICAgICAgICAgICAgICAgICAgICAgICAgICAgICAgICAgDQogICAgIC AgICAgICAgICAgICAgICAgICAgICAgICAgICAgICAg ICAgICAgICAgICAgICAgICAgICAgICAgICAgICAgICAgICAgICAgICAgICAgICAgICAgICAgICAgICAg ICAgDQogICAgICAgICAgICAgICAgICAgICAgICAgICAgICAgICAgICAgICAgICAgICAgICAgICAgICAg ICAgICAgICAgICAgICAgICAgICAgICAgICAgICAgIC AgICAgICAgICAgICAgDQogICAgICAgICAgICAgICAgICAgICAgICAgICAgICAgICAgICAgICAgICAgIC KdKVYjIIDiQBGbCHTgANPxNAXvFLGaCZRtRNAbMPYdKXWpZNOdIABoJHBqZNUrVQNtVGKeRRXyQQm2G6 poUUDqPXPdIP6uACc0Vr6+SLbJFkYiLWD9hjOmiE5M KO2of1YwNWrtRRBzg1FqGRt5OT8JIXIwLFjoNQ3UQPxvpn2NPWFxSXIaaZQMo8gwKpFpEWN3FWMaPmjx LP5TEINpT0ivsgZgDKPcPFNRPHvpCDUTQMfuUHVQNGWoYUXyCgCiQAgqFY9Cr1AjuRY9VYq+Hj1TED0s x8RiIJaqHYIeIN2jub1XXFcVJwXcK0ZuipC1GSLxQD KuJe9LSYUdMTJziDChEiVtGWJFKuFdU5TmqM83FJUVFe1+ORjkdqZeCzaJWaQwZFQse5PwBAb4HE6XLJ XaJTk0pQYfS59kn9BjoDQvGddlMU0cfIo5AFJHEJ39OMzmAF4DJYH2JYKoJeHuUdQlVAoiCRN8TVvcEH 3tQIczKJ6HSOO9NEvlSFReYMJiK1hLXqRoIVGeWSFp bIroRJ5EDsJiI0AgvoIjlEMzLCWfYWPSNj7+HFvxguHiLwxFXeGvCBLll4FsSJr5KB5NWRSmCQycVQ8J IWWctZ0kNPabPG5NDiLdIRTpHXVEYvLwN51eqDZsHMt2H5ApBmQiLVOjUoiaPURiKOyoXaGxURAnZaKf DQogID4+ID4+DRmuIO9SMEfmogUtSZQyFf1JNLQnBD NgKV8cXFUoSHMfB6E8aMbvHXMTKdRzD2eizgwpXV4wSKHqE040bLvevlGmLNUlMZUhSd9BVRZmLJF5MC VcjVWaWrBvBCEKAKgwDM5CfQBpNPZ3cI1zLHslGCGrGMUqB4lMXzXbhXoaZT26sTjittJelLYaRVh+Pg 4EMV8vs3BpZHz4itWlTIemCCB6HBpbAHLkVAKaEDLj NZU3SAH6WUNCWhJgNCCkNEZpPVomAACxXMAosc1HDFKkBSRtBSZ4TPDbFNRrNLFiAXcbSMOqPUGnKJI1 DHMmHWSmEO7RDfIoKFKfVPDsGEtuWCPzSRBllm0KXHGqJFTaCwQ1ZVFzSYYnGBUzWAraGALaDEXhYrNg RBXnALFfFP8TOoOwDEQcTQF1YqSiKILjRJRryg6FHW ExAXYhNSqhEfAhEFHyKMMdDYqqJQZpDTL7EOD2ZAKwDTFkRW8ZBsMlBCMlKHvpMlHfRXGpAOUgmn7GJB UzLWCiVjAnMJXlNMYsSHBwMNodHYQsDHLkJvI0QTDbAXRaHW2EOjAfYMJoPIT2IefdVEJtVJIdyk2VWO QgCCNqIgb2ADLyUEPxWGSiAKqbXURcSMH2EUC8QZUm CZNrJT9ARbSkBNUzCILfKZHpXXEcNIEitj8TBZCpGTCiNZPcJZBiFRXpUIMuOHhnGYDnXXR1FQV6MVUu OUJhPV5SUzDqWVDaEEJzRsAwVOOnZKWsxs5UWCOtUYBvDtW9DxSdDLFfNRIvMDgsXVTrMWT4MkQ1QCEj GVVfJG2VMhGcTECvMwuvZuTyZSQtOEKiab1SSHGqBZ KsEKS2HKNaIUDkBSNpULiuWZToWCO1DyB9YKKaWMUrBE4OYiLwKXKaIuv4QPeeCSFlMTPjsl5USSWzQK KvOSG4VdHoHYIoQFQvGGozEUEsOEO4BRt4NSBjKDSuMI9VEqWxEUCwRmSnUdBtOYUmCEDtsz2UEVNrBI RdFWH2OlGtMARnVFHyRAsaWGClPWQkOml1LJWaNRTx AP9SYtNcMZMmGgPaHUTkUJTkJVZtah8SDEOmNAVtPjObERZhPKFwYUWbLOriDIJrISJqSBX5RJQrGOVl LW9BKsGxIYsjVOAVUaz7PPvnA6u4UWNxLY9XB0Qvo9IjRgGmVAHPGWfkLX5kbyZfWPDkAq8ZS1yGXqt4 GQx4SYXjDomyGpW4WoybZRRuDFruLcF7POsbWBJgCs 0lDRF2ZNh1VZCeGXSlArvjFALsDUUiLYCnYmvkIsYbXWOrXpSeBP3ZNl0JTxA8KBA9tNIwQe3NDeV9ZI UABpKiIK8XJOy= ID Date Data Source [id number] 04/12/2019 03:58:25 PM [facility] Name Value Range Interpretation Code Description Data Mellissa rce(s) Supporting Document(s) History and Physical [facility] SAUJWt6aAfIXSuQh83/FCQtlZFYaq7NrWCnhBDe2QRalCPWwZ0ZbESD3yD5fOUC2DMjCVbXgUvOiBQC0 lbm [file] n8e5+cKj5K6Dkgy0CN4wwlo4ARMIjFDO5cllCx+Patience GwGXzizlYb7bkq3rdw9qIu+bPu/R0aZm/Shpo0CC/YXwka32f2xUxbtVVH9LltUde7gMcGJdQtmY/SNH GNPShZDT5Hohpgq+K6JcjT5QQIP6e3f2aSXj0WJt1trLNXFkB1rHSFIbvcTvhmrzay7oVDMTcydGJ5bg JtbjVA+BgnLeKt+fY6Q/Hw+Tvw5370GVnplCqla3N3 nw3bq/nYhlqH+WSrBSde4HDs2Omby+4/BaHAN7wWurTT36Wp7Zv/of2SDv99o553IFN5ScQ0A1TkA6qW 8F7oO8cXETfpcbAen+W+bbCuUP86o1Ng+yw/Z9fq74kj2974gsiRBu8dh0vEEw1/O1XWKaiju/xL9+6c Clhoc94e/hO8G9qYcrgxg6MdcfLVRAtY5hhJ6dnh5+ m2FEebnR7UxuHnoLHubUTGvfCMlkHesV9tM/+fGK8VAdItf3J3YkEbus2R8IBHpu4rVEaZn4wDgrrS8s 8VLny/Qu84VADK4i14EDzjQGt/P3L0HF2vKj+itepAvU2FIUcCe1GKn1gpMTUe8991pjDCc/iv8ox1up hauser+U6+/9N2/J+2y3/zmL1S0iR7l/Hdadx1kQmSbwUU +EzEqAbxDbA0RXVhUqB6F/sd3M/ZXKtof7ydAADcmtp+Yl2a8/xHRliDSH0mhS1suwVlIXq0ECR9Amzf 6DF364ex6v4EY4zd2H3o2/b6HO/HdPkxS87QzS6pXnEshd8FW+tFkUv2flgdY3S5w48+d1xgR8qnMQ1f 4Q2lrELU+br1W+Io4CCL7a+A91FKTVnqFtm2KAk5fF 2jm8KD6uH5jLcM6+BM0dZRp6wwcxQ7ivZ27D60dgmjWWj4rIpy3tW+oyw4YFikybtAnd3N6FOlxz0Zuf hAxSa2pFyY9iVjv9NUljhsY46vn7Q6O2w6Qy+B6uhFdelypVza63w/hu/ESNpRXjcWt9bAiR98ae8m77 dT+0uzoMc/IJ+6+0T3sazLheJcD3cEFQveyCTxLxNL U0K4k3VnoFUKmmTBBB6pMFHwWV90pZlUltc3Ac6i2kTq2X1FzJXXcNlP22ltWi+FfvIT+AFNh/8NUANr qcSbZb6lzHUlxz01bsqfN3ofP2lkmSybu5Xv9Djgg2xQWK6lq2dxqgJhgEfPsDX+MdLtstfvvK/A/cane packer [file] gwMTJmNGVlZWRjYjI+PO7tEFt+Bl5No3EvjtR5egGcTKdyQwukBq3YLQSLB8SKQc== ID Date Data Source [id number] 04/12/2019 03:57:55 PM [facility] Name Value Range Interpretation Code Description Data Mellissa rce(s) Supporting Document(s) Consultation [facility] NYQHKb8zElYUQnVc49/BGPpyMIFlu1WmRWtzSYh0KYiqNEOnE5BfZZS4bE5pOJT4HTpDJfKsNqHgMDA1 lbm [file] AgICAgICAgICAgICAgICAgICAgICAgICAgICAgICAg ICAgICAgICAgICAgICAgICAgICAgICAgICAgICAgICAgICAgICAgICAgICAgICAgDQogICAgICAgICAg ICAgICAgICAgICAgICAgICAgICAgICAgICAgICAgICAgICAgICAgICAgICAgICAgICAgICAgICAgICAg ICAgICAgICAgICAgICAgICAgICAgICAgICAgICAgDQ ogICAgICAgICAgICAgICAgICAgICAgICAgICAgICAgICAgICAgICAgICAgICAgICAgICAgICAgICAgIC AgICAgICAgICAgICAgICAgICAgICAgICAgICAgICAgICAgICAgICAgDQogICAgICAgICAgICAgICAgIC AgICAgICAgICAgICAgICAgICAgICAgICAgICAgICAg ICAgICAgICAgICAgICAgICAgICAgICAgICAgICAgICAgICAgICAgICAgICAgICAgICAgDQogICAgICAg ICAgICAgICAgICAgICAgICAgICAgICAgICAgICAgICAgICAgICAgICAgICAgICAgICAgICAgICAgICAg ICAgICAgICAgICAgICAgICAgICAgICAgICAgICAgIC AgDQogICAgICAgICAgICAgICAgICAgICAgICAgICAgICAgICAgICAgICAgICAgICAgICAgICAgICAgIC AgICAgICAgICAgICAgICAgICAgICAgICAgICAgICAgICAgICAgICAgICAgDQogICAgICAgICAgICAgIC AgICAgICAgICAgICAgICAgICAgICAgICAgICAgICAg ICAgICAgICAgICAgICAgICAgICAgICAgICAgICAgICAgICAgICAgICAgICAgICAgICAgICAgDQogICAg ICAgICAgICAgICAgICAgICAgICAgICAgICAgICAgICAgICAgICAgICAgICAgICAgICAgICAgICAgICAg ICAgICAgICAgICAgICAgICAgICAgICAgICAgICAgIC AgICAgDQogICAgICAgICAgICAgICAgICAgICAgICAgICAgICAgICAgICAgICAgICAgICAgICAgICAgIC AgICAgICAgICAgICAgICAgICAgICAgICAgICAgICAgICAgICAgICAgICAgICAgDQogICAgICAgICAgIC AgICAgICAgICAgICAgICAgICAgICAgICAgICAgICAg ICAgICAgICAgICAgICAgICAgICAgICAgICAgICAgICAgICAgICAgICAgICAgICAgICAgICAgICAgDQo8 F5aeWIHxMHQrCY4hQXj6Sm5+PHmGPxHaEBD4ixYbmR8SCM7rv9NlJXwpWDRik7WyOHg7XV8MPNVxWYrp GE0PEIkgql5WVRJiVXFpeVMOj4mkZnKyXPM5UHGvVl pkUI4GGSRcW4pmjmXhOZKdDTMEXFrkGDKPJZalMCUDONVbAEZvEhZeGgZjVXSdCIYkFVDNJMC6ZVErHg UfOEXePHMkGX9CBEMzB258quNdUZ6HIs0GWjHjAR0ypk8XRqurSKMjLduVKfz3BCnlPP9XlPUdmIG2DD IeWBHQTgWcE3mrb1SfEAXyFWMZSJlzOJ6We8BehCCa DQo+Fn7JVL0tn6AnBLq7OGKzMD1ryl2BKPpNPdVtB3TpyCgfQRWqvwU4eIBhWLZ4MHTyjWMwaLZIoNBo TQkbEVVTAoBwaYGzJr4uFS9cYWR0USHcAtTtYMUEZM6DKUXxPBRxwZNsZUClFEFZNS7RLMxnIFS2JZLb euWgnBLaQLcwOD5XKHNqpiQvTwfyNUNOOCo+Pg0KZW 1li4EaSOo0OMQnEB9fqj9JOXsARhXoY3W5wPJzO2G5EKlvCp2JNDZuKAKtCcyxIYZMNDnfYQ6YBE3jjx W2NG7PkSVhBLHaDWWijWHxIOz5J67qgSKsPOyrVC0LYAZ+Isiah+Qm6LKJSqNQJhUAEdLuOlXOOJLhFuC2 UnI4ZPt2NeP0HnNT40fVkhrxKhYPosQL5ZER8zOYQq DJUROM0HbWUviI5szpUaDOOpSRHCEdUcW72zlFQgJJElWSB6FXOoVs8IGUQwW2PmcrJiuQocmlCtEEKn DUWYZQ5FVBbbboRatBHyhNpaEJ18sPxuFH3QGv9OQkKpAK6peg1VtFZkKj4CASK2Eq9PKBAfMCTsCVXp DAZ0LTCmZzFsQAahRPQqZIWnLDM5OYOlOQAzYQ0KTe IfHVGmYkY9AZjcGPNqYGTlhq2ZRTKqUPL7MOD0IDNcIVClIJReQZgbHPBqIABbHBA6KVFlMTAhQZ0WTb RpJRTqUOG8BbvqLEEfEQNirj7WHCJaUAVfLQKgTnZyIKThQJWgKEvvOJMvNLQ9SWx3PGWmFLFsEP8EKz XjBLRcTBf6ZBJgGMXmGSBlsu3OKATcJMQbUPNfCLXh NTCkYMKrXOsnVRGwBMMoRSM1VMUaTWFuPV9DPjWtWGXtUDW8OVDvKGTpYSCjbb7PSNYiEFQqXJKtPBXv PJKlKULiEGtyDGYiUAE8BLumNAAqHRHqVI5OYhRvJDEvIOfeCHbvQXBlXCLhvl6IHGRmULEmRKT7RiIk WNFcKIZlZXwrNHQwDYH6RDpzNQFcPIWhDY0MHlKhRU VhIrM3EqKbOEWbZPRjbw5GMSRhTDJkDicuNXEvWNUkDYYmZYcgRHNgWJV4AQp2BVObFKJlCE6WJrWaDZ XwDdK8ESEtDFVfRPGqmk3OCBTkGNJaODR5ITWhPSUxSTJsVBkzWHNtKZL8IMMeFCHvIZLlTI2STzAkCO GzDnN2KBKgYCAyHTXctv0TSMJeLYXoOkhjUvRsFZYl DSSdYJtjKSYhCZM5CAA0RKKwKAUwEL9AGeSaDGFlLynrBOPuGCScCNMjqm4CYBOaENIwTCR1NqIdWBFn ULJkJOtfTSXgHUM8YdHeVQEzXFVuGZ1JWpSzPGYbExt1AnOhAIYqIZTnpf2XDBBxTIK8VELiXsKyTJYv PAJjNIbbQYEvJBSpYtNvPAHvQDTcQO0CUsGgXJXmNo N0MsTuXSNgZQJwun5APPCgNUU5SpTtWRTtRBJaYLGeGZjuIKRkWSFbSWC7TOJqAZIiSH1TNfXcAHZnXx O0LHUgWKZwSQYhdw1BZLVlGRZ6IbO3RAQpTOMxPQXqBOxyMYYtBOKdHet9QYGrXDXsYD4VYjBnYHKwFp MnMSjcIIDeYLGzti1BLGTwOIT7HOZ0YPBeRVBiSXHg MNgcLJJjNSF9WfV6ZOArWCOyLS4VZvUfKNUbHwK6HVpdIEOlUKTblg9EcVSowRwrve1CDRjNXi9DgXly GOJzAFveWy1qcPB8XWTcFJPTJw9IpxKhMEOvJGCAXPcjHJHuHRs6MZVwTYs6IxHkSIRaAGlxBBGbFyGw FBFzSHZbYBp9GhR9XzZ4EqTvAEIpToBvIaE8YBU1Xa UaWUWmX8H6ZDYqHYU+KQ6nDOu+Ew9Go3JuomH1aeRkCPv7JvZ3Lq2SQJXUA5CCNe== ID Date Data Source [id number] 04/11/2019 10:07:01 AM EST [facility] Name Value Range Interpretation Code Description Data Mellissa rce(s) Supporting Document(s) Discharge Summary [facility] KAQWXe1fCkZDXxPq40/HNRadNSOmu2HpIHsfBZn9YJwzGEJsQ6UpWGL6kC9oPGY3SEdFVvIqXiCjGCM7 lbm [file] O0SDKuWKPhK3VnNlqxNZK0EsJ+JK2bNYh+Xv3Tj7CtveQ2szPfNJflBpW1Go1TRKFRI7KFVc== ID Date Data Source [id number] 04/10/2019 03:27:42 [facility] Name Value Range Interpretation Code Description Data Mellissa rce(s) Supporting Document(s) Consultation [facility] ZXTBKl3mGbXDVsWp13/EAHkoIERkf8NnHEdrZMp9IRziXUIkT3XnSCL7xK7cMVR6JRfTKlWsTxHcHXSo lbm [file] o= ID Date Data Source [id number] 04/09/2019 12:08:33 PM [facility] XR CHEST FRONTAL ONLY [id number] RESULTI nterpreted by:Cale Larose MDINDICATION: Pneumonia.TECHNIQUE: XR CHEST FRONTAL ONLY [id number], 04/09/2019 9:55 AM, upright.COMPARISON: 04/06/2019.FINDINGS: The chest [...] rce(s) Supporting Document(s) ID Date Data Source [id number] 04/09/2019 05:18:31 AM [facility] Name Value Range Interpretation Code Description Data Mellissa rce(s) Supporting Document(s) Leukocytes [#/volume] in Blood by Automated count 8.4 10*3/uL 4-10 [facility] Erythrocytes [#/volume] in Blood by Automated count 3.94 10*6/uL 4.1- 5.3 L [facility] Hemoglobin [Mass/volume] in Blood 10.7 g/dL 11.5-15.5 L [facility] Hematocrit [Volume Fraction] of Blood by Automated count 32.3 % 3 6-45 L [facility] Erythrocyte mean corpuscular volume [Entitic volume] by Auto mated count 81.8 fL 80-96 [facility] Erythrocyte mean corpuscular hemoglobin [Entitic mass] by Automated count 27.2 pg 27-33 [facility] Erythrocyte mean corpuscular hemoglobin concentration [Mass/volume] by Automated [facility] 33.2 g/[facility].0[facility] width [Ratio] by Automated count 16.4 % 11.5-14.5 H [facility] Platelets [#/volume] in Blood by Automated count 288 10*3/uL 150-400 [facility] Differential cell count method - Blood [facility] Neutrophils/100 leukocytes in Blood by Automated count 57 % [facility] Lymphocytes/100 leukocytes in Blood by Automated count 34 % [facility] Monocytes/100 leukocytes in Blood by Automated count 7 % [facility] Eosinophils/100 leukocytes in Blood by Automated count 1 % [facility] Basophils/100 leukocytes in Blood by Automated count 1 % [facility] Neutrophils [#/volume] in Blood by Automated count 4.72 10*3/uL 1.8-7 .0 [facility] Lymphocytes [#/volume] in Blood by Automated count 2.85 10*3/uL 1.2-4 .0 [facility] Monocytes [#/volume] in Blood by Automated count 0.61 10*3/uL 0-0.8 [facility] Eosinophils [#/volume] in Blood by Automated count 0.11 10*3/uL 0-0.5 [facility] Basophils [#/volume] in Blood by Automated count 0.08 10*3/uL 0-0.2 [facility] Nucleated erythrocytes/100 leukocytes [Ratio] in Blood by Automated count 0 /100{WBCs} 0-0 [facility] ID Date Data Source [id number] 04/09/2019 05:36:33 AM [facility] Name Value Range Interpretation Code Description Data Mellissa rce(s) Supporting Document(s) Bicarbonate [Moles/volume] in Serum 27 mmol/L 22-29 [facility] Chloride [Moles/volume] in Serum or Plasma 99 mmol/L 98-107 [facility] Creatinine [Mass/volume] in Serum or Plasma 0.48 mg/dL 0.50-0.90 L [facility] Glucose [Mass/volume] in Serum or Plasma 88 mg/dL 70-140 [facility] Potassium [Moles/volume] in Serum or Plasma 3.7 mmol/L 3.4-5.1 [facility] Sodium [Moles/volume] in Serum or Plasma 137 mmol/L 136-145 [facility] Urea nitrogen [Mass/volume] in Serum or Plasma 7 mg/dL 6-20 [facility] Anion gap 3 in Serum or Plasma 11 mmol/L 8-15 [facility] Osmolality of Serum or Plasma by calculation 281 mosm/kg 275-300 [facility] Creatinine/Urea nitrogen [Mass Ratio] in Serum or Plasma 15 [facility] Calcium [Mass/volume] in Serum or Plasma 8.9 mg/dL 8.6-10.0 [facility] Glomerular filtration rate/1.73 sq M pre dicted among non-blacks [Volume Rate/Area] in Serum or Plasma by Creatinine-based formula (MDRD) >6 0 [facility] Glomerular filtration rate/1.73 sq M pre dicted among blacks [Volume Rate/Area] in Serum or Plasma by Creatinine-based formula (MDRD) >60 [facility] ID Date Data Source [id number] 04/09/2019 05:36:33 AM [facility] Name Value Range Interpretation Code Description Data Mellissa rce(s) Supporting Document(s) Magnesium [Mass/volume] in Serum or Plasma 1.8 mg/dL 1.6-2.6 [facility] ID Date Data Source [id number] 04/09/2019 05:36:33 AM [facility] Value Range Interpretation Code Description Data Mellissa rce(s) Supporting Document(s) Phosphate [Mass/volume] in Serum or Plasma 4.6 mg/dL 2.5-4.5 H [facility] ID Date Data Source [id number] 04/08/2019 06:45:55 AM [facility] Name Value Range Interpretation Code Description Data Mellissa rce(s) Supporting Document(s) Leukocytes [#/volume] in Blood by Automated count 10.5 10*3/uL 4-10 H [facility] Erythrocytes [#/volume] in Blood by Automated count 3.69 10*6/uL 4.1- 5.3 L [facility] Hemoglobin [Mass/volume] in Blood 10.1 g/dL 11.5-15.5 L [facility] Hematocrit [Volume Fraction] of Blood by Automated count 30.2 % 3 6-45 L [facility] Erythrocyte mean corpuscular volume [Entitic volume] by Auto mated count 81.9 fL 80-96 [facility] Erythrocyte mean corpuscular hemoglobin [Entitic mass] by Automated count 27.3 pg 27-33 [facility] Erythrocyte mean corpuscular hemoglobin concentration [Mass/volume] by Automated count 33.4 g/dL [facility].0-[facility] width [Ratio] by Automated count 16.6 % 11.5-14.5 H [facility] Platelets [#/volume] in Blood by Automated count 242 10*3/uL 150-400 [facility] Differential cell count method - Blood [facility] Neutrophils/100 leukocytes in Blood by Automated count 72 % [facility] Lymphocytes/100 leukocytes in Blood by Automated count 21 % [facility] Monocytes/100 leukocytes in Blood by Automated count 5 % [facility] Eosinophils/100 leukocytes in Blood by Automated count 1 % [facility] Basophils/100 leukocytes in Blood by Automated count 1 % [facility] Neutrophils [#/volume] in Blood by Automated count 7.61 10*3/uL 1.8-7 .0 H [facility] Lymphocytes [#/volume] in Blood by Automated count 2.21 10*3/uL 1.2-4 .0 [facility] Monocytes [#/volume] in Blood by Automated count 0.49 10*3/uL 0-0.8 [facility] Eosinophils [#/volume] in Blood by Automated count 0.10 10*3/uL 0-0.5 [facility] Basophils [#/volume] in Blood by Automated count 0.05 10*3/uL 0-0.2 [facility] Nucleated erythrocytes/100 leukocytes [Ratio] in Blood by Automated count 0 /100{WBCs} 0-0 [facility] ID Date Data Source [id number] 04/08/2019 07:06:14 AM [facility] Name Value Range Interpretation Code Description Data Mellissa rce(s) Supporting Document(s) Bicarbonate [Moles/volume] in Serum 22 mmol/L 22-29 [facility] Chloride [Moles/volume] in Serum or Plasma 99 mmol/L 98-107 [facility] Creatinine [Mass/volume] in Serum or Plasma 0.38 mg/dL 0.50-0.90 L [facility] Glucose [Mass/volume] in Serum or Plasma 88 mg/dL 70-140 [facility] Potassium [Moles/volume] in Serum or Plasma 3.7 mmol/L 3.4-5.1 [facility] Sodium [Moles/volume] in Serum or Plasma 133 mmol/L 136-145 L [facility] Urea nitrogen [Mass/volume] in Serum or Plasma 6 mg/dL 6-20 [facility] Anion gap 3 in Serum or Plasma 12 mmol/L 8-15 [facility] Osmolality of Serum or Plasma by calculation 273 mosm/kg 275-300 L [facility] Creatinine/Urea nitrogen [Mass Ratio] in Serum or Plasma 16 [facility] Calcium [Mass/volume] in Serum or Plasma 8.4 mg/dL 8.6-10.0 L [facility] Glomerular filtration rate/1.73 sq M pre dicted among non-blacks [Volume Rate/Area] in Serum or Plasma by Creatinine-based formula (MDRD) >6 0 [facility] Glomerular filtration rate/1.73 sq M pre dicted among blacks [Volume Rate/Area] in Serum or Plasma by Creatinine-based formula (MDRD) >60 [facility] ID Date Data Source [id number] 04/08/2019 07:06:14 AM [facility] Value Range Interpretation Code Description Data Mellissa rce(s) Supporting Document(s) Magnesium [Mass/volume] in Serum or Plasma 1.7 mg/dL 1.6-2.6 [facility] ID Date Data Source [id number] 04/08/2019 07:06:14 AM [facility] Name Value Range Interpretation Code Description Data Mellissa rce(s) Supporting Document(s) Phosphate [Mass/volume] in Serum or Plasma 3.6 mg/dL 2.5-4.5 [facility] ID Date Data Source [id number] 04/07/2019 01:59:57 PM EST [facility] Name Value Range Interpretation Code Description Data Mellissa rce(s) Supporting Document(s) History and Physical [facility] FWJVRf4ySzOWJlVa76/HKMffXMGzt8GcMGnpRTu0CCkcNDYwC1VxUPG5oT5uGMX4APnFPkEjPMfwNrAe lbm [file] Andrés+ZOcM9Xn4gjSw9eEmna4PsHA/GQNdvfhMX8vrGk [file] ICAgICAgICAgICAgICAgICAgICAgICAgICAgICAgICAgICAgICAgICAgICAgICAgICAgICAgICAgICAg AEFtCYFfMURbKHUsVXDbCT8IRKIqGKCtSGJuCHGhXAXiIAPwIBQrRXDoGZJqJEMjQGLaWJCxMUIqWLOk ICAgICAgICAgICAgICAgICAgICAgICAgICAgICAgIC RgANNqYEKpQYOpZIScIVFzKOJuRBCbHZXxLX2NHFCyDPSyPOErSYFvCXXjRAJrDUVnCIUcJWRvDNCpYO AgICAgICAgICAgICAgICAgICAgICAgICAgICAgICAgICAgICAgICAgICAgICAgICAgICAgICAgICAgIC HvWKQtJDEaAN7QVDZnHLQvOBOmBUTmTKKtSVItKOYq ICAgICAgICAgICAgICAgICAgICAgICAgICAgICAgICAgICAgICAgICAgICAgICAgICAgICAgICAgICAg DPCfOQKbYFMvOXTlRKZrENTnOW1ZIXXtUHEaKGTbYYLwEEQhZVOrUWXsHDGzLCOhDQNmGRPrOZPrCLAw ICAgICAgICAgICAgICAgICAgICAgICAgICAgICAgIC PeNAMzFYTaQGAoFFStDOHwABEmGEIlGURmMOTpCL0ENPSaDIVgOKVgUEBvIFYsNPPbZLFlRRTsVUFsAT AgICAgICAgICAgICAgICAgICAgICAgICAgICAgICAgICAgICAgICAgICAgICAgICAgICAgICAgICAgIC AfTMNlTVYyPVErPO4OJCDsVIMyBHQkEPRdTPGqKUWq ICAgICAgICAgICAgICAgICAgICAgICAgICAgICAgICAgICAgICAgICAgICAgICAgICAgICAgICAgICAg MRHvALWeNILcMMWyFEHfNWHdGHDlXV8AVGLlGMCyWIXsSNHbARAuFPDtFYKsNCYdEGElTYWyQSDqYDIw ICAgICAgICAgICAgICAgICAgICAgICAgICAgICAgIC IiGTIoESAqTCRxXFQcRMCiCVMcGVDlHLUbPBFzLXAnRD9TCEPcJLTsOOIuDOThKNZeUDUmAGOgRTMhKK AgICAgICAgICAgICAgICAgICAgICAgICAgICAgICAgICAgICAgICAgICAgICAgICAgICAgICAgICAgIC ZeBSZpTNGxDZMoAJCbAT6BREUgGECdOGBcYQTwWCYt ICAgICAgICAgICAgICAgICAgICAgICAgICAgICAgICAgICAgICAgICAgICAgICAgICAgICAgICAgICAg DGUwQNUdJZDpARAwXWIwRDUiSUTyVABfYA5VGX71gQGbs0T8AYRkBX9dwwi/Kw9WDAbbswDtqPHeEX9Q CsTpMY3zux2ANsRjNE8xzf4HUPdNCgBcZ6V3qQTlTC ElDQMQWgEcG87oEOnmXb21LOufZHWwOhMdYBt3To8NLsDyU9geBXAaYvG0SKThGfN0CATrGaQ7XSVwFi ZnAMHmSYQhOIBcBDDDVG2VNnToH7SwhI63FNZQGk4+KUwqdcIyEhtXSoFdPYPgu3FmQWv1WY9ZBUTqEd xpf4EqIcCoYGLBAXyjMH8SLHJ3KOA4GRQmCr8NPREu M049urTeXJ5JHo0CCvCsRH7kqv9EBcDyYYHrVifEBfd8LNyrJX6SlFQnJUxWNtXnBwwmSSKtb27lDOmb g1bzFMRLVVTrrAHzRt3aYV9tZUQ0LRK3KxAqVPPKNT1QNDNdCYGqmJVvQQVzBRGMZV3DSKprYEF8FOMg ufOlbWMyKPhbZR7ZYQHookJoGjXbMEDNSPp+Pg0KZW 1ec5QlLIsbXHJqZS6qzc5KGInLKiFcI4J3yXIwW4G7DAnuVj5BRVDoEWNyFfZiVXBARLrxII4QKL4ijl G9LQ3AjEDfDGWbAXIpcCZnZAg6L70iaIUbPGsiDS3EFGR+Isiah+Uf2GLYJsHFBeHMLyMgVmZURNIcCqR7 DzX2RNf5XeK9EiRV90sWewhdGtUSshFZ3LQW7qTALt IBXXVJ8JgUTygZ3ahsNwHcPcPGJJUjJvF36tyJIbIGWwGTWaCWMsUg4OOOCdY9ZqgsLwrVxvgaApWFWm RKAWDD5NKBugqnFzaGUxgSjgPB96qBfgGR2BOo3ASeCgBF4ovf1VjUIzWb7WWSRyUh6SRVSuLWNgSLZz NSI2WCJlXuLcUQpnNALpVAHeANY3NXHwWWZcUL1FWo UwGNUfElR0TePcOKVuYKHqfp5HISIpIUGzJWY3ObBtGEPuTMDlZGauTSIkZMZaCSZ5USLaLYNrZV9XGs TkONBwTAO9TLCwVLIbYWIyzf8VDZFpXHYvMlQ5CXLdXODmLEQrUHpjILFxNWH4GEXuGBUlDLMeRV0FHj JsVECvJQqxPyOcNWGuPVUviw7WZKBgYBUfAJe7BzVq XVCsDHEuJKetGSWjTZOoUYCgXQRdUDUhQR7AGxQkEAAySENoOrynQYMqFDYjow8IGTKwUBAjGsY5OHZw TGEpVLHqBSyoIZYnHKF6VsArEYVcPLLkBC3NWqUsLZTxEZT7CsigROPbIHYjyg0MDPXuKGMyPkrnIAVt DYYiSCSlDJwdZZXjOVS6LAY5ZYQgYTGwYN7BNzWpTS ZoENekOIhiUIIcQMUsyu6WBIBoOBAuBED8KoUuNGCbXJDdZJvcNRYjSAO3VoA3GNDjVFUrTU7IWfSyGZ HbSUi1HXsiOBMwZWJszj2IROQyYINeVKIiDeGqJSNxIDYcFBaoJFDfJBR8QoU3LBLcHMDfSY3AJoSiYN ThQYc5ZSuuMZYkGVDhjz0GQFJtQGXnEWW4QpJpHLAe YCAkZOubIOSdKMQmCqRuNJMdLSJkUZ6ZRvRjWRGbCgR1OShfMXIwWHSels6PUJJsGVGqGgQ7EJOgZYPp SBZeUCknJAEfMWEeMJh3XFHyASBtKD5SGaFeVWXjGmSwQyyvDRXbOBDrfz9OBPCrSYUuSqWeBbNlOQJr QDNwPPjpPWAyOQKbIXI2AWXxXVEtUX8IYaYdLCFyPu T8YfxcZFAqKRTkcv6GVTIaWLIrZNOeXOHaNXBbHAZlSKsjWAWgDQU5HTvbSSSxYINgWD1LArFhZCNtHd E1TZtrPIAoRXDmem5GjJOdsZgidj9GVZzLIm1BeCguBVL3UEfsUn9riWJuGSMdWZOQZl4HhxGmZVPrJJ XZPLdnMIVbEPJ2SXAbMHRoGQs6NkezStZuAENlYoEv MAdmOCEoUXG5RtT0QyVaWKWgSUO0XnfqFBZfZFI8VEKvXcH3VZN2MoK1XbS+OM5kCTf+Nd6Vz0JufiI2 awJpQYkjGJj7Wu0WEVIDO0PYPv== ID Date Data Source [id number] 04/07/2019 07:39:01 AM [facility] Name Value Range Interpretation Code Description Data Mellissa e(s) Supporting Document(s) Leukocytes [#/volume] in Blood by Automated count 11.7 10*3/uL 4-10 H [facility] Erythrocytes [#/volume] in Blood by Automated count 4.12 10*6/uL 4.1- 5.3 [facility] Hemoglobin [Mass/volume] in Blood 11.1 g/dL 11.5-15.5 L [facility] Hematocrit [Volume Fraction] of Blood by Automated count 34.0 % 3 6-45 L [facility] Erythrocyte mean corpuscular volume [Entitic volume] by Auto mated count 82.5 fL 80-96 [facility] Erythrocyte mean corpuscular hemoglobin [Entitic mass] by Automated count 26.8 pg 27-33 L [facility] Erythrocyte mean corpuscular hemoglobin concentration [Mass/volume] by Automated count 32.5 g/dL 32.0-36.0 [facility] distribution width [Ratio] by Automated count 16.9 % 11.5-14.5 H [facility] Platelets [#/volume] in Blood by Automated count 291 10*3/uL 150-400 [facility] Differential cell count method - Blood [facility] Neutrophils/100 leukocytes in Blood by Automated count 89 % [facility] Lymphocytes/100 leukocytes in Blood by Automated count 8 % [facility] Monocytes/100 leukocytes in Blood by Automated count 3 % [facility] Eosinophils/100 leukocytes in Blood by Automated count 0 % [facility] Basophils/100 leukocytes in Blood by Automated count 0 % [facility] Neutrophils [#/volume] in Blood by Automated count 10.35 10*3/uL 1.8- 7.0 H [facility] Lymphocytes [#/volume] in Blood by Automated count 0.95 10*3/uL 1.2-4 .0 L [facility] Monocytes [#/volume] in Blood by Automated count 0.34 10*3/uL 0-0.8 [facility] Eosinophils [#/volume] in Blood by Automated count 0.00 10*3/uL 0-0.5 [facility] Basophils [#/volume] in Blood by Automated count 0.04 10*3/uL 0-0.2 [facility] Nucleated erythrocytes/100 leukocytes [Ratio] in Blood by Automated count 0 /100{WBCs} 0-0 [facility] ID Date Data Source [id number] 04/07/2019 07:52:23 AM [facility] Name Value Range Interpretation Code Description Data Mellissa rce(s) Supporting Document(s) Prothrombin time (PT) 14.8 s 12.5-14.9 [facility] INR in Platelet poor plasma by Coagulation assay 1.13 [facility] ID Date Data Source [id number] 04/07/2019 07:55:04 AM [facility] Name Value Range Interpretation Code Description Data Mellissa rce(s) Supporting Document(s) Bicarbonate [Moles/volume] in Serum 21 mmol/L 22-29 L [facility] Chloride [Moles/volume] in Serum or Plasma 102 mmol/L 98-107 [facility] Creatinine [Mass/volume] in Serum or Plasma 0.40 mg/dL 0.50-0.90 L [facility] Glucose [Mass/volume] in Serum or Plasma 70 mg/dL 70-140 [facility] Potassium [Moles/volume] in Serum or Plasma 4.4 mmol/L 3.4-5.1 [facility] Sodium [Moles/volume] in Serum or Plasma 137 mmol/L 136-145 [facility] Urea nitrogen [Mass/volume] in Serum or Plasma 4 mg/dL 6-20 L [facility] Anion gap 3 in Serum or Plasma 15 mmol/L 8-15 [facility] Osmolality of Serum or Plasma by calculation 280 mosm/kg 275-300 [facility] Creatinine/Urea nitrogen [Mass Ratio] in Serum or Plasma 10 [facility] Calcium [Mass/volume] in Serum or Plasma 8.2 mg/dL 8.6-10.0 [facility] Glomerular filtration rate/1.73 sq M pre dicted among non-blacks [Volume Rate/Area] in Serum or Plasma by Creatinine-based formula (MDRD) >6 0 [facility] Glomerular filtration rate/1.73 sq M pre dicted among blacks [Volume Rate/Area] in Serum or Plasma by Creatinine-based formula (MDRD) >60 [facility] ID Date Data Source [id number] 04/07/2019 07:55:04 AM [facility] Name Value Range Interpretation Code Description Data Mellissa rce(s) Supporting Document(s) Magnesium [Mass/volume] in Serum or Plasma 2.0 mg/dL 1.6-2.6 [facility] ID Date Data Source [id number] 04/07/2019 07:55:04 AM [facility] Value Range Interpretation Code Description Data Mellissa rce(s) Supporting Document(s) Phosphate [Mass/volume] in Serum or Plasma 3.2 mg/dL 2.5-4.5 [facility] ID Date Data Source [id number] 04/10/2019 08:06:03 PM [facility] Value Range Interpretation Code Description Data Mellissa rce(s) Supporting Document(s) Galactomannan Ag [Presence] in Serum or Plasma by Immunoassa y 0.05 Index 0.00-0.49 [facility] (NOTE)Performed At: [facility] [id number] Benoit MD Ph:[phone] At: [facility] [id number] [place], [place] [id number] Osorio MD Ph:[phone] ID Date Data Source [id number] 06/01/2019 07:53:17 AM [facility] Cmnt XXX-Imp : Acid fast Stn XXX : No Acid fast bacilli seen on Fluorochrome stain.Microorganism XXX Cult : No growth (qualifier value) Name Value Range Interpretation Code Description Data Mellissa rce(s) Supporting Document(s) ID Date Data Source [id number] 04/10/2019 10:32:12 AM [facility] Cmnt XXX-Imp : Microorganism XXX Cult : 2Candida albicans Name Value Range Interpretation Code Description Data Mellissa rce(s) Supporting Document(s) ID Date Data Source [id number] 05/06/2019 07:40:37 AM [facility] Cmnt XXX-Imp : Microorganism XXX Cult : No virus isolated Name Value Range Interpretation Code Description Data Mellissa rce(s) Supporting Document(s) ID Date Data Source [id number] 04/13/2019 11:17:14 AM [facility] Cmnt XXX-Imp : Microorganism XXX Cult : No Legionella pneumophila isolated Name Value Range Interpretation Code Description Data Mellissa rce(s) Supporting Document(s) ID Date Data Source [id number] 04/10/2019 07:30:55 AM [facility] Cmnt XXX-Imp : Microorganism XXX Cult : Mycoplasma pneumoniae by PCR: Negative. This test was developed and its performance characteristics determined by [facility]. It has not been cleared or approved by the Food and Drug Administration. The FDA has determined that such clearance or approval is not necessary.[facility] [address] [place] [address] Name Value Range Interpretation Code Description Data Mellissa rce(s) Supporting Document(s) ID Date Data Source [id number] 04/08/2019 11:17:41 AM [facility] Cmnt XXX-Imp : Gram Stn XXX : No WBC's or organisms seen.Microorganism XXX Cult : Normal serenity Name Value Range Interpretation Code Description Data Mellissa rce(s) Supporting Document(s) ID Date Data Source [id number] 04/07/2019 11:03:29 AM [facility] Cmnt XXX-Imp : P jiroveci Ag Spt Ql IF : Negative for Pneumocystis jiroveci Name Value Range Interpretation Code Description Data Mellissa rce(s) Supporting Document(s) ID Date Data Source [id number] 06/01/2019 07:53:17 AM [facility] Cmnt XXX-Imp : Acid fast Stn XXX : No Acid fast bacilli seen on Fluorochrome stain.Microorganism XXX Cult : No growth (qualifier value) Name Value Range Interpretation Code Description Data Mellissa rce(s) Supporting Document(s) ID Date Data Source [id number] 04/10/2019 11:30:30 AM [facility] Cmnt XXX-Imp : Microorganism XXX Cult : One (1) colony ofCandida albicans Name Value Range Interpretation Code Description Data Mellissa rce(s) Supporting Document(s) ID Date Data Source [id number] 05/06/2019 07:41:33 AM [facility] Cmnt XXX-Imp : Microorganism XXX Cult : No virus isolated Name Value Range Interpretation Code Description Data Mellissa rce(s) Supporting Document(s) ID Date Data Source [id number] 04/13/2019 11:17:14 AM [facility] Cmnt XXX-Imp : Microorganism XXX Cult : No Legionella pneumophila isolated Name Value Range Interpretation Code Description Data Mellissa rce(s) Supporting Document(s) ID Date Data Source [id number] 04/10/2019 07:31:13 AM [facility] Cmnt XXX-Imp : Microorganism XXX Cult : Mycoplasma pneumoniae by PCR: Negative. This test was developed and its performance characteristics determined by [facility]. It has not been cleared or approved by the Food and Drug Administration. The FDA has determined that such clearance or approval is not necessary.Performed by [facility], [address] [place] [address] Name Value Range Interpretation Code Description Data Mellissa rce(s) Supporting Document(s) ID Date Data Source [id number] 04/08/2019 07:46:32 AM [facility] Cmnt XXX-Imp : Microorganism XXX Cult : [place] count <=10,000 cfu/mlNormal serenity Name Value Range Interpretation Code Description Data Mellissa rce(s) Supporting Document(s) ID Date Data Source [id number] 04/07/2019 11:03:58 AM [facility] Service Cmnt XXX-Imp : P jiroveci Ag Spt Ql IF : Negative for Pneumocystis jiroveci Name Value Range Interpretation Code Description Data Mellissa rce(s) Supporting Document(s) ID Date Data Source [id number] 04/06/2019 06:46:59 PM [facility] Value Range Interpretation Code Description Data Mellissa rce(s) Supporting Document(s) Glucose [Mass/volume] in Capillary blood by Glucometer 93 mg/dL 70- 140 [facility] ID Date Data Source [id number] 04/06/2019 04:42:38 PM [facility] Name Value Range Interpretation Code Description Data Mellissa rce(s) Supporting Document(s) pH of Arterial blood 7.38 7.38-7.44 [facility] Carbon dioxide [Partial pressure] in Arterial blood 39 mm[Hg] 35-40 [facility] Oxygen [Partial pressure] in Arterial blood 124 mmHg 95-100 H [facility] Oxygen saturation in Arterial blood 99 % 94-100 [facility] Base excess in Arterial blood by calculation [facility] Carbon dioxide, total [Moles/volume] in Arterial blood 24 mmol/L [facility] Oxygen/Inspired gas setting [Volume Fraction] Ventilator [facility] ID Date Data Source [id number] 04/06/2019 03:19:08 PM [facility] Value Range Interpretation Code Description Data Mellissa rce(s) Supporting Document(s) History and Physical [facility] XQBCDs3bYwQTCpBa85/ZWWjwJMIob8RhUErdJJl0LRyeCCEeO6MuFQV4nY3rKFV8SDjNDdIrJUgbBtFh lbm [file] ICAgICAgICAgICAgICAgICAgICAgICAgICAgICAgIC AgICAgICAgICAgICAgICAgICAgICAgICANCiAgICAgICAgICAgICAgICAgICAgICAgICAgICAgICAgIC AgICAgICAgICAgICAgICAgICAgICAgICAgICAgICAgICAgICAgICAgICAgICAgICAgICAgICAgICAgIC AgICAgICANCiAgICAgICAgICAgICAgICAgICAgICAg ICAgICAgICAgICAgICAgICAgICAgICAgICAgICAgICAgICAgICAgICAgICAgICAgICAgICAgICAgICAg ICAgICAgICAgICAgICAgICANCiAgICAgICAgICAgICAgICAgICAgICAgICAgICAgICAgICAgICAgICAg ICAgICAgICAgICAgICAgICAgICAgICAgICAgICAgIC AgICAgICAgICAgICAgICAgICAgICAgICAgICANCiAgICAgICAgICAgICAgICAgICAgICAgICAgICAgIC AgICAgICAgICAgICAgICAgICAgICAgICAgICAgICAgICAgICAgICAgICAgICAgICAgICAgICAgICAgIC AgICAgICAgICANCiAgICAgICAgICAgICAgICAgICAg ICAgICAgICAgICAgICAgICAgICAgICAgICAgICAgICAgICAgICAgICAgICAgICAgICAgICAgICAgICAg ICAgICAgICAgICAgICAgICAgICANCiAgICAgICAgICAgICAgICAgICAgICAgICAgICAgICAgICAgICAg ICAgICAgICAgICAgICAgICAgICAgICAgICAgICAgIC AgICAgICAgICAgICAgICAgICAgICAgICAgICAgICANCiAgICAgICAgICAgICAgICAgICAgICAgICAgIC AgICAgICAgICAgICAgICAgICAgICAgICAgICAgICAgICAgICAgICAgICAgICAgICAgICAgICAgICAgIC AgICAgICAgICAgICANCiAgICAgICAgICAgICAgICAg ICAgICAgICAgICAgICAgICAgICAgICAgICAgICAgICAgICAgICAgICAgICAgICAgICAgICAgICAgICAg ICAgICAgICAgICAgICAgICAgICAgICANCiAgICAgICAgICAgICAgICAgICAgICAgICAgICAgICAgICAg ICAgICAgICAgICAgICAgICAgICAgICAgICAgICAgIC AgICAgICAgICAgICAgICAgICAgICAgICAgICAgICAgICANCjw/hYBuF8bqaABvpxB5V7gmOz6CAb7IMN 9ly0CwCWNwDTpzbhJrIlpFImRcAXHqHtwLExu6POxiMO9VaANwB1RbM0AeXTciCR3FBNGmYXZnjFWcYR UhMKQlQyC1KNLmQTcfRB6XnOSxYHjlDNCgLZRgYkJz RLMzZSQhNLEwJFWwNUAWCJLvTSMkJuKbVBhlRP0Fk1YoxGI1SPo+Vt9STW3wy8DvRCxlROVtCQ5xqe4D ODgNLtLfU1SirkX0RQIqGAVpCp9UIRGpYNJsbCGfKJLwWIANEfPeD9PisG70KRUFQm3+DQplbmRvYmoN XiEsFPKad5QqDZl4DN2DLXNwMXi0fVEnQANXJUN9PP ItmzwtGOdhz8LoIAyeMHPwJTYmSKTuRlAdByQlNFReLYxbVMEJNQvQOfGzZ9Ciy2JwYbK5FBIvGyPxVN yyEKLwPfK5GP12pZcsGQ3QYJVzTFEgCW72DEFsSZNqNv1VVz0YLpNwJI5wrl6YAcWyCJJrUgnMDhn9QA huVI2NjGNiS3YtdECzr7xKQbYbE3TSBTK6NICoLp2S GIBtOkUlIPVsGJueYX4uFBLnXGTRmMafujL3AA0OHT2ztcPhPT1KQrRxYh7zWv9PCwEwD5NoE0TmVFTk DLOQELfaPS0MTTgqOJ2eJM0Cv1TQgWRzbW3kdo6ZOGGgBAEaNwlyqw1JAkvtS3J6cIskVKNfAvSuHSSF ATnyVO6FZSOxBEW6AMNhAZDxDBAYEsEbB55cXJ9NZ0 Oki95pCrH6PYWgMdYlAWnsVT55pOrkucRbwACewPqzHF8GOg2+DQplbmRvYmoNCnhyZWYNCjAgMzMNCj JbKWSqOCKkVAUdRqN1ShYsWi3IEIGiPIKzYKAiWeAoBYYaKEIaZVrpKVIoZDN3VLMmXFKnSOYoAZ8ENq KcIJSfKixyXSRxUEJhIXQavy2BPUQqGNGtVGB2ElQs PEThWXJnJZpjCQRoHMR3ZHg7CGSnCRAfGF7GKlTaEMKcIZJhLYVwNVUaZVZfua7WXAIxVJXmQXFzLHLd KWUmIQJvURrcWODdIRG2GgV3LGLoJRBiRH7ZAaQpSMYzOWZ5PZFtOSRfSNYyeo8TPXPyWDYeBMf1OPVp USXtFIGjDBbnLMRoEKN7OQnnNRVsSJMzZN3UVmPkGJ NmSOQfVERtGHYsCRQrxd1NQQBaDAJgNFzwKuIeGLVrKGMmGNrnHQRiOXK1IDXsJBDxYGSxAC8GMiLrBZ PnSpLiZMGgFBKuDRUgrh6YOIFbQRHdSEW2MTBzMOEzCJTpYGgxDDVtUTCrAJkjTZUrOXSwVF2BRuRjMH TpSmY6DYEgBMRuVVRctf9XRRHrHBZuHJT6BcMyQOHv WNQjNWapWLXxSFDiHDNxPGCtIHGmUO1XZmTdQAAiQlRdAVRiHYTrIOWqhd4UYSItIFPaNjUfEXCbAYGr HQEpGQsmOQReJGJpPtCnWSMqAZCtGT6GTfYsJCNzTiT9YXWtCDReDWBqzk5EQYEyKTKiIBYqBTMqBTYl EPHzCTsvRGOeZJI7MCobONQwOSJbJO4MDtPtCGXjJn BpIdZlJYYfJVUoas6WYMPjKCYaJZVjSRUrYKMbGMWbUHgiBQQpNEQ0NPN5YVYsCGPnEW8UHrAcYRArNg ejFQncRFSfMEOytu9AWCHjADMdNfS5RCUiXYCbKTMfDCcnAVFxIUS7IER4CGDsZCQtOC7ICmPrXSokWH FBVzp1CCumI4b0PDShYc4TX4Fhx6ZyMnWdQKDWZCwb CO8fvzXjZUArCl1TS6bOTzewYiUzUDQ1GHH4FARqRDTlFmJzP2Z0BWQ9H7D8JKR3UD2lAES6NKZ4KOg3 EYopXFXwGcO5FvEkBxZ2RgVyPywjRraxWpOtQU8JUq6CHdI4THS4hYGrHb5YPfx0RmFQNfQyRQ0EFNd= ID Date Data Source [id number] 04/06/2019 02:23:29 PM [facility] CT ANGIOGRAPHY THORAX [id number] RESULTI nterpreted by:Shree Shafer MDINDICATION: Rule out [...] There are multiple enlarged mediastinal nodes. A credit representative AP window node measures 1.3 cm. [...] rce(s) Supporting Document(s) ID Date Data Source [id number] 04/13/2019 11:17:14 AM [facility] Cmnt XXX-Imp : Microorganism XXX Cult : No Legionella pneumophila isolated Name Value Range Interpretation Code Description Data Mellissa rce(s) Supporting Document(s) ID Date Data Source [id number] 04/08/2019 11:17:41 AM [facility] Cmnt XXX-Imp : Gram Stn XXX : 1W BC'S Seen.1FloraMicroorganism XXX Cult : Normal serenity Name Value Range Interpretation Code Description Data Mellissa rce(s) Supporting Document(s) ID Date Data Source [id number] 04/06/2019 01:09:00 PM [facility] Cmnt XXX-Imp : Microorganism XXX Cult : Urine NEGATIVE for L. pneumophila serogroup 1 antigen by immunochromatographic assay. This test does not detect infections due to other L. pneumophila serogroups or to other Legionella species. Name Value Range Interpretation Code Description Data Mellissa rce(s) Supporting Document(s) ID Date Data Source [id number] 04/06/2019 12:09:41 PM [facility] Name Value Range Interpretation Code Description Data Mellissa rce(s) Supporting Document(s) [facility] XKRJVg1eIfWLMbSqj5OoRtKdFDYaLL6efrh5S5H1jSPhZ9TfwBApr1zlB1AeW1CdZKDxNAUZSY4WaPHm jb2 [file] uerAR1/Drop Tester+X2bS/SV/a2YvrgKW/DSO0Gfh3ZD+U88K OvWk61/vjr+SfHP/6+07Y//nerDg297zEhDDWAo7/q0tFX3+7ZcrEn2LR0+8/0mDRq3aa+muuYn/v7N7 qd7c/9bTmN+3N/innpWCgh106fc89EqG4+PZpA/uG2v4U3+ycrQV8N4IJkJyFS81l/U7Fj+XcmdujFh+ +rn31f/gz3r5uooUH5cqjZpjhawxpb1SFzKuko2/at v7IGmunnONkEcVUfFN/9sdCaRpsjMc9UdR+w8YFPesuBvMUGqO//3JWwveh4c7hXjI2l+jfKr S3qoFgnxGWl8Jeez9Cynr0Tlv6/OJd3p0iqhw8/u2blPB1061ljjyIp94VBpGx8ot8k/B9xzHqmqLE/P B8oZ4f1KgO75/zOh+pxsDKrDJ5S6oOgec+P4A+UD5Y Fy+QdPu62wVkixJY6u86p45fm3T420qDZsP2hzz8H3zHmY52Qj3xvc/8wTI6519+aHQH66EN5tV5TCpJ +TT9SgqYn3T+c9/mqKq/JXmq2q/VAiK5pS6T5e1Vq8nzH73FD1E7vP+uB96XXB+Np205XVriCZU45vpV 9/Jta74Xj1kYpd5A+8bng42frk+3PlkGU3Ee99losH Db8//rQepP23HT+uOzOi7/a4v+f4cQc3IObWtfJ7QC3ELzP7T2r69w7pDv65qf0r6xg3T+Xn/bt16wnF peZL3jPz3beL1v/31K27hFmSQxV+IC0bB2VNlK7qHnP/pXLUZ+UqWaXGLmcrnspNd33Qf3F+UnuUvnq3 Uk5GatA77P9P9DjY/oAOzpZQG986/awkhuapVn30a1 b8Vf4e/EIbG06xl0x+Pg7h5Gt5h6sRvdk7w/RE3urRz1xVHxFbm8unL+82yjEeKX+V2+okU4fvanIiRR xa6J8X+rf054UxRncj9CoHJ+Na5l5PP5Qc/kql7sRa78e/3lu0r2JoEM1w+Wx42rRuFulrfA+U3+eFDn 0Lro885vfupx/v80J/BLE8Q4xxb6/7c+7nofoMB5vU qyAshlTZ2okqnkWvHY/M6X709k5+U7Bjo0z7aRtFDuOK0sunpaJke7k5gXsx55Hys+73klf4Lavfpw8i tGBhY6GpxAAsg6ac+5YiI0lu5RYzWJl/fp8Hu9/n/a49K7q07zU54eh6g/auS4qdl/f5sSt/1VV+8htd 5Se/pHTXB00zfloB8e7Y/kqTCZW/4lYA5y8463Y9O5 6AYV0MwglVl7ijy423e3TsVr2OGiY8396bl/FXvih/JR+Yv5Sxod5jNaqtmMHk1ut10ussx/vB3nF/+3 3e7/3mN3q/79Rh106U0/l7Ag8Y6Z0aXrRa5ZUe45hb8U45fx38djcTXS/z/fF4uq121/1gx/vBrvyVtp W/syikzOc3e7V9cm0UY/fhKG+67rz2VI9iqEwOkfSz dgW52J3bfzJnq6Z2NeTo0apvUobp42CU7E7a4cnU9SO4tk10iYVo/XYhSdve2g9pgrDTL134dhb0ET1o e9zt/nep7FQdJef6m8/m4zl7+NbzzF/i17nNpo6iaYSh90++eqchf/ztpknEJ7/x/xTk304EaLhI13Wt zwNOLPHU8ByhZTP+6FsknD9cq5Ul9vVTU78O/tzf9z ghe4CQHR6aV32x9jxgs3S/4iTdI878wbtoa9Gv+6WQU62U0NdRM60xlnJ4tj0R1ZXf8ldwwMIqtsze9H 9d+sq0vb/6s8+rJ/u6+cm+rt7oC+7J9ba9Eq+8MB6t+71KX+nbJ3x1kl87KdP//cm6+fYzD/gwd2gxoN U50Lhqk5gulZwb3m5/3/mGccT8yavG3xbAa7kb767Q Rxv+bvi74e+Gvxv+yub25y2oMT/tk93a23j4LE8ejpDxfhE6Pw/4gdtV0dd6LyTQX/mrgfeDA/mr8XQc Z+D4A+AY0kO9SUuO+AB1YafO+b2/w+79HQZ/Df4a/IW+GtBXA/chGVp17r5U3adu9lc+eyB/NSxQHii/ eqRH7QDDCfddHonZrX9Qiq9Xor48ljS6/ulnn73Lbc vx1K6iB/nN5wy/wknVea7e+B1/h9/xd/wNuxU1NQ3CWiZ+ZE0ObvI++3fB6eBcvE/K9f1G0/a8807u86 /I97s1Vpvx4hBQ4he+nut89P5jYatZwWg5vl5AY6tJz2/5cS65w1N+Fp9llzTXi93oR1oq2AMkWJ/+2n pT2jkIiU3I9L3P1k9um1iu6I8+Z4xkML37iw0bPy9f x/5lyN3m61oe49Lu6SDymXpujo6i9q24b8e15Fr1gkDYz+5Uc8jP1+/o6Rv0aVPo/eAYgfJAOdrvmLie zuFhzRtzO04iPsZz7Jbt7vWQmC8z+6uR31/lNsobfn+/VxmB/yrclrrzTY0NWbxScB08JqY+xBF11HK6 wRH3+8yB96AG3yyV4c6ZjX6nnC415A4aKSh4Lsi9Wf 9l3Fe0GKiUzyV6LZ2nY9eJivN+zoXyjfL7/ujxa28H25G3naiQ5ri0eYiRK9Nh/i7c33W/jdwBJ3fmNm h/pa+fGnz3InYohF2D7+/C+Sw5MpQoLeGGxO7i++Y3xr7P+4NvSOd29WkE0mzJo0uTcFw2/F9jpwtFFo hHfVb+GkVg321X8JhZvO643D2ihA3TkX4TgC5QhY4C cF4B3NdXdRC1DewGD9T1o4F8r/EMlAfKA+ZT1MTqF+UL5Rvl+7UukcZZS0NtB9hdhjh88C8Z1/Z48wyh 76+a5sse/dxVfvRzV/fDg7uS6J8LakV41GdbGgzn8xoyvpcXxiJr66yT0/cqoe+daydbA58m+6t3G+WG ckP5/N1d4U8TaxCwN+up5X9Qoeoif/SRqwViGf26wq qUmp9Ubn/7Db/1Ofx+Txh+9WT4HY/C7/va0Zf3BhzpuL8RcpWS2B0+C2airzKyI7Qf/jnabb/RUJ/bfV 6Idr9/DnzfHu1+Xxf4/irw/MY8dn0n/P4+Dwa+c6114sjH3/dm0e/9PpAJ4XDmV8nyCPy1EFbjl1c//f ZX0e/4G/7Dr9RTcng85NdnQ/r+SvWtn+8OjxwpB5Z0 PjnRdX/aHPxP05hutm9sKExs+pLdpqr57N/MYv0m2c5+r4L4F6mZBtC/9X6wf+pgFf0aBplpJ0VjldSl FjuOF6i0CmrXL3kqUbi/yIeuib50kbTLEp/99vhbU39uTQw31kS/H9MU2c/6lZzboWKrS3++spwB+rm/ ia1lggGtDs6O6wwo13pO/Dg97WQu+TCQg20Us80+Cl 9X6PxerkO1XoSl0D1PK5RG/F35f0h6lrP85fg3rIREH6d4+34/7c0WL0Grq7Xwj2L0k47A1MsKB5/ExH g07/EjvLs4FkW7wpX+L1Avwtq40/gbE+STyXxgjQkr2vUb1sjOKa/bC+Vov3Oj/OqNwPdXsW4+Npah3F B+4arnDUpxQH6d2anZz0DPuxeU9q2DpQ+ER0KsnE+U a38pTB289By+xa679s46kz74s7iEhisB76sO34eBkvemRcovgo0cL9sQ4QHlFg/Dmm6E8BrcmwOtp+dz 7+57WxIsdy6hI2/N5+rn+Vx/p/TVVHl/sI3y+gz62S6f2u9bnIfLrnpRS+1K67LRjjX+NV4yMtPm+98p fZXb9/l32n3/O+2+/77026qPp+1SrrRA308Sc/rod1 [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/cTzFnM/1PKBmBAqO3I5OhS+Jd9xkU5vDa05u1cRMn9N [file] FvYLtwIsGd9Hpd1Gl+J1S7KBbu7jOIqNXjAnC0CZRjyllOvp9XO2PqZR7jmAENTekm5yst1o7Zjwe/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 [file] [id number] ID Date Data Source [id number] 04/06/2019 01:42:04 PM [facility] Cmnt XXX-Imp : Microorganism XXX Cult : [...] rce(s) Supporting Document(s) ID Date Data Source [id number] 04/07/2019 01:17:20 PM [facility] Cmnt XXX-Imp : Microorganism XXX Cult : NO Methicillin resistant Staphylococcus aureus isolated Name Value Range Interpretation Code Description Data Mellissa rce(s) Supporting Document(s) ID Date Data Source [id number] 04/06/2019 12:56:22 PM [facility] Name Value Range Interpretation Code Description Data Mellissa rce(s) Supporting Document(s) Natriuretic peptide.B prohormone N-Terminal [Mass/volu me] in Serum or Plasma 792 pg/mL <125 H [facility] ID Date Data Source [id number] 04/06/2019 12:56:22 PM [facility] Name Value Range Interpretation Code Description Data Mellissa rce(s) Supporting Document(s) Troponin T.cardiac [Mass/volume] in Serum or Plasma <0.01 [facility] ID Date Data Source [id number] 04/06/2019 12:52:56 PM [facility] Name Value Range Interpretation Code Description Data Mellissa rce(s) Supporting Document(s) HIV 1+2 Ab+HIV1 p24 Ag [Presence] in Serum or Plasma by Immu noassay Non Reactive [facility] Negative for HIV-1 p24 antigenand HIV-1/ HIV-2 antibodies. Nolaboratory evidence of HIVinfection. ID Date Data Source [id number] 04/06/2019 12:28:21 PM [facility] Name Value Range Interpretation Code Description Data Mellissa rce(s) Supporting Document(s) Lactate [Moles/volume] in Serum or Plasma 1.2 mmol/l 0.5-2.2 [facility] ID Date Data Source [id number] 04/11/2019 12:23:48 PM [facility] Service Cmnt XXX-Imp : L HANDMicroorgani sm XXX Cult : No growth (qualifier value) Name Value Range Interpretation Code Description Data Mellissa rce(s) Supporting Document(s) ID Date Data Source [id number] 04/11/2019 12:23:48 PM [facility] Service Cmnt XXX-Imp : L HANDMicroorgani sm XXX Cult : No growth (qualifier value) Name Value Range Interpretation Code Description Data Mellissa rce(s) Supporting Document(s) ID Date Data Source [id number] 04/06/2019 10:19:39 AM [facility] Name Value Range Interpretation Code Description Data Mellissa rce(s) Supporting Document(s) Progress Note [facility] QVKTYk1kKpZGWdCu06/TASshKNTaf8LiRWpmXIn9BClsJITxQ7MqJFO7jS8uUFH1PPeIIxMmHTjfAsEt lbm [file] XBECFposHXWHAdIfRP1DGJy= ID Date Data Source [id number] 04/06/2019 09:45:01 AM [facility] Name Value Range Interpretation Code Description Data Mellissa rce(s) Supporting Document(s) Glucose [Mass/volume] in Capillary blood by Glucometer 114 mg/dL 70- 140 [facility] ID Date Data Source [id number] 04/06/2019 09:18:04 AM [facility] XR CHEST FRONTAL ONLY [id number] RESULTI nterpreted by:CIERRA StacyROCEDURE INFORMATION: Exam: XR [...] rce(s) Supporting Document(s) ID Date Data Source [id number] 04/06/2019 10:19:57 AM [facility] Name Value Range Interpretation Code Description Data Mellissa rce(s) Supporting Document(s) Albumin [Mass/volume] in Serum or Plasma by Bromocresol green (BCG) dye binding method 3.4 g/dL 3.5-5.2 [facility] Bilirubin.total [Mass/volume] in Serum or Plasma 0.3 mg/dL <1.2 [facility] Calcium [Mass/volume] in Serum or Plasma 8.6 mg/dL 8.6-10.0 [facility] Chloride [Moles/volume] in Serum or Plasma 93 mmol/L 98-107 L [facility] Creatinine [Mass/volume] in Serum or Plasma 0.50 mg/dL 0.50-0.90 [facility] Glucose [Mass/volume] in Serum or Plasma 101 mg/dL 70-140 [facility] Alkaline phosphatase [Enzymatic activity/volume] in Serum or Plasma 78 U/L 35-104 [facility] Potassium [Moles/volume] in Serum or Plasma 3.8 mmol/L 3.4-5.1 [facility] Protein [Mass/volume] in Serum or Plasma 5.9 g/dL 6.4-8.3 L [facility] Sodium [Moles/volume] in Serum or Plasma 129 mmol/L 136-145 L [facility] Aspartate aminotransferase [Enzymatic activity/volume] in Serum or Plasma 25 U/L <32 [facility] Urea nitrogen [Mass/volume] in Serum or Plasma 8 mg/dL 6-20 [facility] Osmolality of Serum or Plasma by calculation 267 mosm/kg 275-300 L [facility] Creatinine/Urea nitrogen [Mass Ratio] in Serum or Plasma 15 [facility] Bicarbonate [Moles/volume] in Serum 23 mmol/L 22-29 [facility] Alanine aminotransferase [Enzymatic activity/volume] in Seru m or Plasma 10 U/L <33 [facility] Anion gap 3 in Serum or Plasma 13 mmol/L 8-15 [facility] Albumin/Globulin [Mass Ratio] in Serum or Plasma 1.4 [facility] Glomerular filtration rate/1.73 sq M pre dicted among non-blacks [Volume Rate/Area] in Serum or Plasma by Creatinine-based formula (MDRD) >6 0 [facility] Glomerular filtration rate/1.73 sq M pre dicted among blacks [Volume Rate/Area] in Serum or Plasma by Creatinine-based formula (MDRD) >60 [facility] ID Date Data Source [id number] 04/06/2019 01:17:02 PM [facility] Name Value Range Interpretation Code Description Data Mellissa rce(s) Supporting Document(s) Magnesium [Mass/volume] in Serum or Plasma 1.9 mg/dL 1.6-2.6 [facility] ID Date Data Source [id number] 04/06/2019 01:17:02 PM [facility] Name Value Range Interpretation Code Description Data Mellissa rce(s) Supporting Document(s) Phosphate [Mass/volume] in Serum or Plasma 3.2 mg/dL 2.5-4.5 [facility] ID Date Data Source [id number] 04/06/2019 09:30:48 AM [facility] Name Value Range Interpretation Code Description Data Mellissa rce(s) Supporting Document(s) Leukocytes [#/volume] in Blood by Automated count 17.6 10*3/uL 4-10 H [facility] Erythrocytes [#/volume] in Blood by Automated count 4.19 10*6/uL 4.1- 5.3 [facility] Hemoglobin [Mass/volume] in Blood 11.3 g/dL 11.5-15.5 L [facility] Hematocrit [Volume Fraction] of Blood by Automated count 33.8 % 3 6-45 L [facility] Erythrocyte mean corpuscular volume [Entitic volume] by Auto mated count 80.7 fL 80-96 [facility] Erythrocyte mean corpuscular hemoglobin [Entitic mass] by Automated count 27.0 pg 27-33 [facility] Erythrocyte mean corpuscular hemoglobin concentration [Mass/volume] by Automated count 33.5 g/dL 32.0-36.0 [facility] E[facility]th[facility] distribution width [Ratio] by Automated count 16.8 % 11.5-14.5 H [facility] Platelets [#/volume] in Blood by Automated count 314 10*3/uL 150-400 [facility] Differential cell count method - Blood [facility] Neutrophils/100 leukocytes in Blood by Automated count 86 % [facility] Lymphocytes/100 leukocytes in Blood by Automated count 10 % [facility] Monocytes/100 leukocytes in Blood by Automated count 3 % [facility] Eosinophils/100 leukocytes in Blood by Automated count 0 % [facility] Basophils/100 leukocytes in Blood by Automated count 1 % [facility] Neutrophils [#/volume] in Blood by Automated count 15.29 10*3/uL 1.8- 7.0 H [facility] Lymphocytes [#/volume] in Blood by Automated count 1.69 10*3/uL 1.2-4 .0 [facility] Monocytes [#/volume] in Blood by Automated count 0.55 10*3/uL 0-0.8 [facility] Eosinophils [#/volume] in Blood by Automated count 0.00 10*3/uL 0-0.5 [facility] Basophils [#/volume] in Blood by Automated count 0.10 10*3/uL 0-0.2 [facility] Nucleated erythrocytes/100 leukocytes [Ratio] in Blood by Automated count 0 /100{WBCs} 0-0 [facility] ID Date Data Source [id number] 04/06/2019 08:57:37 AM [facility] Name Value Range Interpretation Code Description Data Mellissa rce(s) Supporting Document(s) Progress Note [facility] XCNUOm2mDdTICpRl27/OYSklXIVss3DiNNbhJZf1XNvvSSLuX8VkPCQ5iV8yCWL7PDvCRkDpGNhfWrGm [facility] [file] DQo= ID Date Data Source [id number] 04/10/2019 06:06:00 PM [facility] CYTOPATHOLOGY REPORTName: NEREYDA COLÓN MMRN: [id number] Number: [id number] Date: 04/06/2019 00:00Received Date: [...] bacilli are seen on the AFB stain./cjsGross Dymzrdwhayb55 ml cloudy, red fluid with red and [...] developed and their performance characteristics determined by [facility] Pathololgy department. They have not been cleared or approved by [place] Food and Drug Administration. The FDA has determined that suchclearance or approval is not necessary. Name Value Range Interpretation Code Description Data Mellissa rce(s) Supporting Document(s) ID Date Data Source [id number] 03/18/2019 12:00:00 AM EST [facility] Pérez Olvera DO Patient Name: LEO COLÓN [facility] Date of : 1970[place] [address] Date of Exam: 03/18/2019#: Fax: [phone] EXAM: [...] criteria for genetic testing established by [facility] and [place] [employer] guidelines. She should pursue arisk [...] (finding) completed Current drinker of alcohol (finding) [facility] Tobacco use and exposure 02/26/2020 12:00:00 AM EST Never used co mpleted Never used [facility] Cigarette pack-years 02/26/2020 12:00:00 AM EST UNK completed [facility] Cigarettes smoked current (pack per day) - Reported 02/26/20 12:00:00 AM EST UNK completed [facility] Smoking 02/26/2020 12:00:00 AM EST Current every day smoker co mpleted Current every day smoker [facility] Alcohol intake 02/22/2020 12:00:00 AM EST Current drinker of al cohol (finding) completed Current drinker of alcohol (finding) [facility] Alcohol intake 12/22/2019 12:00:00 AM EDT Current drinker of al cohol (finding) completed Current drinker of alcohol (finding) [facility] Alcohol intake 2019 12:00:00 AM EDT Current drinker of al cohol (finding) completed Current drinker of alcohol (finding) [facility] Alcohol intake 10/23/2019 12:00:00 AM EDT Current drinker of al cohol (finding) completed Current drinker of alcohol (finding) [facility] Cigarette pack-years 10/23/2019 12:00:00 AM EDT UNK completed [facility] Cigarettes smoked current (pack per day) - Reported 10/23/19 12:00:00 AM EDT UNK completed [facility] Smoking 10/23/2019 12:00:00 AM EDT Current some day smoker com pleted Current some day smoker [facility] Alcohol intake 10/21/2019 12:00:00 AM EDT Current drinker of reta cohol (finding) completed Current drinker of alcohol (finding) [facility] Alcohol intake 06/08/2019 12:00:00 AM EST Current drinker of reta ibrahimol (finding) completed Current drinker of alcohol (finding) [facility] Cigarette pack-years 06/08/2019 12:00:00 AM EST UNK completed [facility] Cigarettes smoked current (pack per day) - Reported 06/08/19 12:00:00 AM EST UNK completed [facility] Smoking 06/08/2019 12:00:00 AM EST Current some day smoker com pleted Current some day smoker [facility] Alcohol intake 06/03/2019 12:00:00 AM EST Current drinker of reta cohol (finding) completed Current drinker of alcohol (finding) [facility] Cigarette pack-years 06/03/2019 12:00:00 AM EST UNK completed [facility] Cigarettes smoked current (pack per day) - Reported 06/03/19 12:00:00 AM EST UNK completed [facility] Smoking 06/03/2019 12:00:00 AM EST Current some day smoker com pleted Current some day smoker [facility] Alcohol intake 05/15/2019 12:00:00 AM EST Current drinker of al cohol (finding) completed Current drinker of alcohol (finding) [facility] Cigarette pack-years 05/15/2019 12:00:00 AM EST UNK completed [facility] Cigarettes smoked current (pack per day) - Reported 05/15/19 12:00:00 AM EST UNK completed [facility] Smoking 05/15/2019 12:00:00 AM EST Current some day smoker com pleted Current some day smoker [facility] Alcohol intake 05/14/2019 12:00:00 AM EST Current drinker of al cohol (finding) completed Current drinker of alcohol (finding) [facility] Cigarette pack-years 05/14/2019 12:00:00 AM EST UNK completed [facility] Cigarettes smoked current (pack per day) - Reported 05/14/19 12:00:00 AM EST UNK completed [facility] Smoking 05/14/2019 12:00:00 AM EST Current some day smoker com pleted Current some day smoker [facility] Alcohol intake 04/09/2019 12:00:00 AM EST Current drinker of al cohol (finding) completed Current drinker of alcohol (finding) [facility] Cigarette pack-years 04/09/2019 12:00:00 AM EST UNK [facility] Cigarettes smoked current (pack per day) - Reported 04/09/19 12:00:00 AM EST UNK completed [facility] Smoking 04/09/2019 12:00:00 AM EST Current some day smoker com pleted Current some day smoker [facility] Vital Signs ID Date Data Source [...] Body weight 66.679 kg 66.679 kg [facility] ([facility] ) Body mass index (BMI) [Ratio] 30.7 kg/m2 30.7 k g/m2 [facility] ([facility]) Body weight 147.00 [lb_av] 147.00 [lb_av] [facility] ([facility]) Body height 58 [in_i] 58 [in_i] [facility] ([facility]) 4'10" Oxygen saturation in Arterial blood by Pulse oximetry 95 % 95 % [facility] ([facility]) Heart rate 85 /min 85 /min [facility] ([facility]) Diastolic blood pressure 70 mm[Hg] 70 mm[Hg] [facility] Systolic blood pressure 102 mm[Hg] 102 mm[Hg] [facility] ID Date Data Source [id number] 02/28/2020 09:24:31 PM [facility] Value Range Interpretation Code Description Data Source(s) WEIGHT RECORDED 165 lb 165 lb [facility] Body height Measured 58.66 in 58.66 in [facility] ID Date Data Source [id number] 03/30/2020 03:00:42 PM [facility] Value Range Interpretation Code Description Data Source(s) WEIGHT RECORDED 165 lb 165 lb [facility] Body height Measured 58.66 in 58.66 in [facility] ID Date Data Source [id number] [facility] Code Description Data Source(s) WEIGHT RECORDED 160 lb 160 lb [facility] Body height Measured 58.66 in 58.66 in [facility] ID Date Data Source [id number] 12/21[facility]56[facility] Code Description Data Source(s) WEIGHT RECORDED 158.4 lb 158.4 lb [facility] Body height Measured 58.66 in 58.66 in [facility] ID Date Data Source [id number] 11/20[facility]:21[facility] Code Description Data Source(s) WEIGHT RECORDED 158 lb 158 lb [facility] Body height Measured 59 in 59 in [facility] WEIGHT RECORDED 158.4 lb 158.4 lb [facility] Body height Measured 58.66 in 58.66 in [facility] ID Date Data Source [id number] 06/08/2019 02:17:02 PM [facility] Name Value Range Interpretation Code Description Data Source(s) WEIGHT RECORDED 150 lb 150 lb [facility] Body height Measured 59 in 59 in [facility] ID Date Data Source [id number] 05/20/2019 02:12:01 PM [facility] Name Value Range Interpretation Code Description Data Source(s) WEIGHT RECORDED 148 lb 148 lb [facility] Body height Measured 59 in 59 in [facility] ID Date Data Source [id number] 06/03/2019 12:47:00 PM [facility] Name Value Range Interpretation Code Description Data Source(s) WEIGHT RECORDED 154 lb 154 lb [facility] Body height Measured 59 in 59 in [facility] ID Date Data Source [id number] 09/03/2019 10:59:48 AM [facility] Name Value Range Interpretation Code Description Data Source(s) WEIGHT RECORDED 148.8 lb 148.8 lb [facility] Body height Measured 59 in 59 in [facility] Patient Treatment Plan of Care Planned Activity Planned Date Details Description Data Source (s) Morphine Sulfate 30 MG Extended Release Oral Tablet 04/12/19 12:00:00 AM [facility] Cyclobenzaprine hydrochloride 5 MG Oral Tablet 04/12/2020 12:00:00 AM [facility] oxcarbazepine 150 MG Oral Tablet 04/06/2020 12:00:00 AM [facility] gabapentin 600 MG Oral Tablet 03/31/2020 12:00:00 AM [facility] Morphine Sulfate 30 MG Extended Release Oral Tablet 03/15/20 12:00:00 AM [facility] Oxycodone Hydrochloride 5 MG Oral Tablet 02/16/2020 12:00:00 AM [facility] Morphine Sulfate 30 MG Extended Release Oral Tablet 02/16/20 12:00:00 AM [facility] Albuterol Sulfate HFA 108 (90 Base) MCG/ ACT Inhalation Aerosol Solution (PROVENTIL HFA) 12/22/2019 12:00:[address] [facility] 60 ACTUAT Budesonide 0.08 MG/ACTUAT / fo rmoterol fumarate 0.0045 MG/ACTUAT Metered Dose Inhaler 12/22/2019 12:00:00 AM [facility] Oxycodone Hydrochloride 5 MG Oral Tablet 12/17/2019 12:00:00 AM [facility] Morphine Sulfate 30 MG Extended Release Oral Tablet 12/17/19 12:00:00 AM [facility] Oxycodone Hydrochloride 5 MG Oral Tablet 11/21/2019 12:00:00 AM [facility] Morphine Sulfate 30 MG Extended Release Oral Tablet 11/21/19 12:00:00 AM [facility] Prednisone 10 MG Oral Tablet 10/28/2019 12:00:00 AM [facility] 60 ACTUAT Budesonide 0.08 MG/ACTUAT / fo rmoterol fumarate 0.0045 MG/ACTUAT Metered Dose Inhaler 10/28/2019 12:00:00 AM [facility] Sulfamethoxazole 800 MG / Trimethoprim 160 MG Oral Tab let 10/28/2019 12:00:00 AM [facility] Prednisone 10 MG Oral Tablet 10/28/2019 12:00:00 AM [facility] Albuterol 0.833 MG/ML / Ipratropium [place] 0.167 MG/M L Inhalant Solution 10/23/2019 08:04:41 PM [facility] methylPREDNISolone sodium succinate (SOLU-MEDROL) 125 MG injection 10/23/2019 08:04:31 PM [facility] tizanidine 4 MG Oral Capsule 10/23/2019 12:00:00 AM [facility] Morphine Sulfate 30 MG Extended Release Oral Tablet 10/22/19 12:00:00 AM [facility] Oxycodone Hydrochloride 5 MG Oral Tablet 10/22/2019 12:00:00 AM [facility] gabapentin 600 MG Oral Tablet 09/21/2019 12:00:00 AM [facility] Oxycodone Hydrochloride 5 MG Oral Tablet 09/21/2019 12:00:00 AM [facility] Morphine Sulfate 30 MG Extended Release Oral Tablet 09/21/19 12:00:00 AM [facility] oxcarbazepine 150 MG Oral Tablet 09/14/2019 12:00:00 AM [facility] Oxycodone Hydrochloride 5 MG Oral Tablet 05/20/2019 12:00:00 AM [facility] Morphine Sulfate 30 MG Extended Release Oral Tablet 05/20/19 12:00:00 AM [facility] medical marijuana 05/13/2019 12:00:00 AM [facility] Morphine Sulfate 30 MG Extended Release Oral Tablet 04/23/19 12:00:00 AM [facility] Oxycodone Hydrochloride 5 MG Oral Tablet 04/23/2019 12:00:00 AM [facility] Varenicline Tartrate 0.5 MG X 11 & 1 MG X 42 Oral (BARBIE NTIX STARTING MONTH ) 04/09/2019 12:00:00 AM [facility] 24 HR Nicotine 0.292 MG/HR Transdermal Patch 04/09/2019 12:00:00 AM [facility] POLYETHYLENE GLYCOL 3350 142 MG/ML Oral Solution 04/07/2019 09:00:0 0 AM [facility] Oxycodone Hydrochloride 5 MG Oral Tablet 03/26/2019 12:00:00 AM [facility] Morphine Sulfate 30 MG Extended Release Oral Tablet 03/26/20 12:00:00 AM [facility] oxcarbazepine 150 MG Oral Tablet 03/21/2019 12:00:00 AM [facility] gabapentin 600 MG Oral Tablet 11/19/2018 12:00:00 AM [facility] Ibuprofen 800 MG Oral Tablet 05/16/2018 12:00:00 AM [facility] tizanidine 4 MG Oral Capsule 08/11/2017 12:00:00 AM [facility] Albuterol Sulfate HFA 108 (90 Base) MCG/ ACT Inhalation Aerosol Solution (PROVENTIL HFA) [facility] Prednisone 10 MG Oral Tablet [facility] Amlodipine 5 MG Oral Tablet [facility] Prednisone 10 MG Oral Tablet [facility]
[2020-05-04] MEDS ORDERED: ALBUTEROL 90 MCG/ACT 8GM HFA INHALER INH PRN (03:30)
[2020-05-04 03:58] LABS: PROTHROMBIN TIME 13.4 SECONDS (12.5-14.3)
[2020-05-04 03:59] LABS: PARTIAL THROMBOPLASTIN TIME 39.4 SECONDS (24.2-38.5)
[2020-05-04] MEDS ORDERED: IPRATROPIUM 0.5MG/ALBUTEROL 2.5MG INH SOL UD 3ML (DUONEB) NEB SCH (04:00)
[2020-05-04 04:01] LABS: D-DIMER QUANT 1158.37 ng/ml (<500)
[2020-05-04 04:05] LABS: C REACTIVE PROTEIN QUANTITATIV 7.94 MG/DL (0.00-0.30); FERRITIN 64 NG/ML (8-252); IRON (FE) 11 UG/DL (50-170); LDH LACTATE DEHYDROGENASE 403 U/L (84-246); PERCENT SATURATION 3.4 % (13.2-45.0); TOTAL IRON BINDING CAPACITY 322 UG/DL (250-450)
[2020-05-04 04:10] LABS: HEMOGLOBIN A1c 5.9 %
--- NOTE | 2020-05-04 04:29 | HPEPDOC ---
[facility] Medical History & Physical Date of Admission May 04, 2020 Date of Service: May 04, 2020 Attending Physician: LUCILA FIERRO MD History and Physical CHIEF COMPLAINT: Shortness of breath HISTORY OF PRESENT ILLNESS: Patient is a 49 year old female with a past medical history significant for chronic hypoxemic respiratory failure 2/2 interstitial lung disease, hypertension, tobacco abuse, and chronic pain who presented to the [facility] ER with complaint of worsening shortness of breath. Patient stated that yesterday she had noted worsening shortness of breath with wheezing. She states she has a cough although no sputum production. Additionally, she has fevers, chills, and body aches. Patient states that her was diagnosed with COVID-19 on Saturday. On presentation to the ER the patient was found to be more hypoxic then her baseline. Chest x-ray obtained demonstrated bilateral opacities consistent with her previous imaging dating back to November 2018. Patient was found to have a leukocytosis on labs with a slight elevation in. Additionally she was hyponatremic. Hospitalist service was consulted and the patient was admitted for further evaluation and management PAST MEDICAL HISTORY: 1. Chronic Hypoxemic Respiratory Failure 2/2 interstitial lung disease on 3-4L NC at baseline 2. Hypertension 3. Hyperlipidemia 4. Occipital and Trigeminal Neuralgia 5. Osteoarthritis 5. Trochateric Bursitis of the hip 6. Insomnia 7. Nicotine dependence/Tobacco use disorder 8. Restless leg syndrome 9. Vitamin D Deficiency PAST SURGICAL HISTORY: 1. Dorsal Column stimulator 2. Trigeminal Nerve Release and neuroma scar excision 3. Multiple cervical surgeries 4. Appendectomy 5. Cholecystectomy 6. Caesarean Section x2 SOCIAL HISTORY: Patient is and lives at home with her . She denies illicit/IV drug use. She admits to social alcohol use. She is a current smoker and smokes 1ppd. She is currently on disability. FAMILY HISTORY: Patients mother has asthma/COPD. She is unsure of her father. She has no siblings ALLERGIES: Please see below. REVIEW OF SYSTEMS: CONSTITUTIONAL: Admits to fevers and chills. Denies unintentional weight loss or gain. Denies night sweats HEENT: Denies dysphagfa or pain on swallowing. Denies choking. Denies changes in vision CARDIOVASCULAR: Denies chest pain or pressure. States she has a tightness around her chest RESPIRATORY: Admits to shortness of breath and wheezing. Admits to cough without sputum production. GASTROINTESTINAL: Denies abdominal pain, diarrhea, or constipation. Denies nausea or vomiting GENITOURINARY: Denies dysuria or increased frequency SKIN: Denies rashes or lesions MUSCULOSKELETAL: Admits to chronic neck and back pain NEUROLOGICAL: Denies changes in gait or speech. PSYCHIATRIC: Admits to depression/anxiety ENDOCRINE: Denies heat intolerance or cold intolerance HEMATOLOGIC/LYMPHATIC: Denies easy bruising or bleeding. Denies history of DVT or PE HOME MEDICATIONS: Please see below. PHYSICAL EXAMINATION: VITAL SIGNS: Temperature 100.3, pulse 95, respiratory rate 28, blood pressure 94/61, pulse oximetry 91% on 5L NC GENERAL APPEARANCE: Awake, alert, and oriented. Does not appear in acute dist ress. Appears uncomfortable and tachypneic HEENT: Atraumatic, normocephalic. Eyes are nonicteric. Trachea is midline. Mucous membranes are slightly dry CARDIOVASCULAR: Normal S1,S2. Regular rate and rhythm. No clicks, rubs, or murmurs LUNGS: Decreased breath sounds throughout. Scattered wheezing throughout with some rhonci. Fine crackles in the bases. No accessory muscle use. Patient is tachypneic. ABDOMEN: Soft, nondistended. nontender. Normoactive bowel sounds throughout EXTREMITIES: No edema. Full and equal pulses in bilateral upper and lower extremities NEUROLOGICAL: No focal neurological deficits PSYCHIATRIC: Mood and affect appear appropriate LABORATORY DATA: See below. IMAGING: PROCEDURE INFORMATION: Exam: XR Chest, 1 View Exam date and time: 05/04/20 (1:22am) Age: 49 years old Clinical indication: Cough and dyspnea TECHNIQUE: Imaging protocol: Portable CXR Views: 1 view COMPARISON: Portable CXR of 01/12/20 FINDINGS: Comparison is made with a portable CXR done on 01/12/20. Streaky and hazy opacities again seen, bilaterally. New infiltrate at the right lung base. No significant pleural effusions. Neurostimulator device (perhaps) again seen, with electronic pack projecting over the left lung apex and leads extending toward the neck. Large patient size, with prominent breast shadows. IMPRESSION: Persistent bilateral hazy and streaky parenchymal opacities, with no significant improvement appreciated. No significant pleural effusions. Electronically signed by: Ebonie Florence On 05/04/2020 01:53:40 AM MICROBIOLOGY: Please see below. ASSESSMENT: Patient is a 49 year old female with a past medical history significant for chronic hypoxemic respiratory failure on 3-4L oxygen supplementation at baseline, hypertension, hyperlipidemia, tobacco abuse, and chronic pain who presented to the [facility] ER with complaint of worsening shortness of breath. Patient found to be hypoxic past baseline. . PLAN: 1. Acute on chronic hypoxemic respiratory failure 2/2 inflammatory vs infectious process -Patient has a history of chronic respiratory failure. She follows with [facility] in [place]. She has had multiple admissions within the past year and was intubated in 10/2019. Her previous CT scans have shown bilateral opacities predominately in the upper lobes. During her previous admissions she has been steroid responsive within 24-48 hours. She is a current smoker and the cause of her respiratory failure could be a Respiratory Bronchiolitis associated interstitial lung disease (RB-ILD). She has documented in the EMR that she has idiopathic pulmonary fibrosis although she has been significantly steroid responsive in the past which is not typical of IPF. -Patient does have a history of COVID-19 exposure as her currently has COVID-19. Her COVID-19 test was negative however the results are questionable given her symptoms and exposure history. Will place patient on contact/droplet precautions. Recommend repeating COVID-19 test. COVID-19 labs ordered although suspect to see elevations in general inflammatory markers given that her lung disease is an inflammatory process -Will give Solumedrol 125mg now. Will continue her on Solumedrol 80mg q8h. -Will start empiric antibiotics for CAP. Rocephin and Doxy. She has received a dose of Rocephin and Azithromycin in the ER. -Procalcitonin ordered. Will deescalate antibiotics as clinically indicated -Oxygen therapy orders to maintain O2 sats > 90% -Duonebs with prn Ventolin HFA -Day team to consider CT chest if patients symptoms do not improve or worsen 2. Sepsis -Patient with leukocytosis, tachypnea, fever, lactic acidosis, and possible respiratory infection. Leukocytosis may be secondary to steroid use as she is on chronic prednisone. -Blood cultures pending. -Empiric antibiotics started. Procalcitonin ordered. 3. Hyponatremia -Patient is hyponatremic with a Na of 129. urine sodium, urine osmolality, serum osmolality ordered. She is taking Oxcarbazepine which can be associated with hyponatremia. -Will continue to monitor 4. Anemia -Patient has a chronic anemia. She is currently at her baseline. Iron studies ordered however this can be pursued as an outpatient -Will continue to monitor 5. Elevated BNP -Patient does not have a history of CHF. Likely elevated in the setting of pulmonary disease 6. Occipital and trigeminal neuralgia -Patient currently on Oxcarbazepine. Will hold gabapentin and opioid medications due to respiratory depression 7. Depression/Anxiety -Continue Prozac. Will hold Xanax to avoid respiratory depression 8. Restless Leg Syndrome -Continue ropinirole 9. GI prophylaxis -Protonix 40mg PO 10. DVT prophylaxis -Lovenox 40mg daily Vital Signs Vital Signs Date Time Temp Pulse Resp B/P (MAP) Pulse Ox O2 Delivery O2 Flow Rate FiO2 05/04/20 01:58 100.3 95 28 94/51 (65) 91 Nasal Cannula 5.0 05/04/20 00:44 40 Laboratory Data Labs 24H Laboratory Tests 2 05/04/20 00:17: Immature Granulocyte % (Auto) 1.0, Neutrophils (%) (Auto) 85.8H, Lymphocytes (%) (Auto) 7.9L, Monocytes (%) (Auto) 4.9, Eosinophils (%) (Auto) 0.1, Basophils (%) (Auto) 0.3, Neutrophils # (Auto) 25.1H, Lymphocytes # (Auto) 2.3, Monocytes # (Auto) 1.4H, Eosinophils # (Auto) 0.0, Basophils # (Auto) 0.1, Nucleated Red Blood Cells % (auto) 0.0, Lactic Acid Level 2.4*H, Coronavirus (COVID-19)(PCR) NEGATIVE, Influenza Type A (RT-PCR) NEGATIVE, Influenza Type B (RT-PCR) NEGATIVE, Respiratory Syncytial Virus (PCR) NEGATIVE 05/04/20 00:18: Anion Gap 8, Glomerular Filtration Rate > 60.0, Calcium Level 8.9, Total Bilirubin 0.3, Direct Bilirubin 0.2, Aspartate Amino Transf (AST/SGOT) 38H, Alanine Aminotransferase (ALT/SGPT) 28, Alkaline Phosphatase 117, Total Creatine Kinase 102, Creatine Kinase MB < 1.0, Creatine Kinase MB Relative Index 0.98, Troponin I < 0.02, XA-Kuv-J-Type Natriuretic Peptide 803H, Total Protein 6.8, Albumin 3.4, Albumin/Globulin Ratio 1.0L 05/04/20 00:40: Blood Gas Bicarbonate Standard 23.6, Arterial Blood pH 7.442, Arterial Blood Partial Pressure CO2 34.1L, Arterial Blood Partial Pressure O2 61.9L, Arterial Blood Total CO2 23.8, Arterial Blood HCO3 22.7, Arterial Blood Base Excess -0.9, Arterial Blood Oxygen Saturation 92.5L CBC/BMP Laboratory Tests 05/04/20 00:17 05/04/20 00:18 Microbiology Microbiology 05/04/20 Blood Culture, Received Pending Home Medications Scheduled Amlodipine Besylate (Amlodipine Besylate) 5 Mg Tablet, 5 MG PO QHS Ergocalciferol (Vitamin D2) (Vitamin D2) 50,000 Units Cap, 50,000 UNITS PO 1XWK SATURDAY Fluoxetine Hcl (Fluoxetine HCl) 20 Mg Capsule, 20 MG PO BID Gabapentin (Gabapentin) 600 Mg Tablet, 1,200 MG PO TID L.acidoph/L.bulg/B.bif/S.therm (Bacid Caplet) 1 Each Tablet, 1 TAB PO DAILY Morphine Sulfate (Morphine Sulfate ER) 30 Mg Tablet.er, 30 MG PO BID Oxcarbazepine (Oxcarbazepine) 150 Mg Tablet, 450 MG PO BID Pantoprazole Sodium (Pantoprazole Sodium) 40 Mg Tablet.dr, 40 MG PO QHS Pravastatin Sodium (Pravastatin Sodium) 40 Mg Tablet, 40 MG PO QHS Ropinirole HCl (Ropinirole HCl) 1 Mg Tablet, 1 MG PO QHS Scheduled PRN Acetaminophen (Tylenol Extra Strength) 500 Mg Tablet, 1,000 MG PO Q6H PRN for PAIN / FEVER Albuterol Sulfate (Ventolin Hfa) 18 Gm Hfa.aer.ad, 2 PUFFS INH QID PRN for SHORTNESS OF BREATH Alprazolam (Alprazolam) 0.5 Mg Tablet, 0.5 MG PO QID PRN for ANXIETY Cyclobenzaprine HCl (Cyclobenzaprine HCl) 5 Mg Tablet, 5 MG PO TID PRN for MUSCLE SPASMS Allergies Coded Allergies: No Known Drug Allergies (Verified Allergy, Unknown, 01/13/20) A-FIB/CHADSVASC A-FIB History Current/History of A-Fib/PAF?: No GME ATTESTATION GME ATTESTATION My faculty preceptor for this patient encounter was physically present during the encounter and was fully available. All aspects of the patient interview, examination, medical decision making process, and medical care plan development were reviewed and approved by the faculty preceptor. The faculty preceptor is aware and concurs with the plan as stated in the body of this note and will attest to such by his/her cosignature. ATTENDING NOTE Time of service 355 AM is a 49 yr old F w a hx of IPF, O2 dep respiratory failure, pulm HTN, HFpEF & HTN who presented w c/o dyspnea fevers and malise and will be admitted for # management of sepsis possibly 2/2 PNA #acute on chronic hypoxemic respiratory failure (is now on 5L of supplemental O2) #hyponatremia Plan: f/u repeat respiratory panel and consider CTA of chest pending coags. Rest per 's H&P NEYDA SUGGS DO May 04, 2020 04:29 LUCILA FIERRO MD May 04, 2020 05:25
[2020-05-04] MEDS: DOXYCYCLINE HYCLATE 100 MG in D5W MINI-BAG PLUS 100 ML IV SCH ×2 (05:59→17:17)
[2020-05-04 07:39] LABS: HEMATOCRIT 29.9 % (36.0-47.0); HEMOGLOBIN 9.7 g/dl (12.0-15.5); MEAN CORPUSCULAR HEMOGLOBIN 25.5 pg (27.0-33.0); MEAN CORPUSCULAR HGB CONC 32.4 g/dl (32.0-36.5); MEAN CORPUSCULAR VOLUME 78.7 fl (80.0-96.0); PLATELET COUNT, AUTOMATED 288 10^3/uL (150-450)
[2020-05-04 08:00] LABS: ALT/SGPT 35 U/L (12-78); BILIRUBIN,TOTAL 0.3 MG/DL (0.2-1.0); BLOOD UREA NITROGEN 9 MG/DL (7-18); CALCIUM LEVEL 8.2 MG/DL (8.5-10.1); CARBON DIOXIDE LEVEL 23 MEQ/L (21-32); CHLORIDE LEVEL 94 MEQ/L (98-107); GLOMERULAR FILTRATION RATE > 60.0 (>51); GLUCOSE, FASTING 188 MG/DL (70-100); MAGNESIUM LEVEL 1.6 MG/DL (1.8-2.4); SODIUM LEVEL 128 MEQ/L (136-145); TOTAL PROTEIN 6.3 GM/DL (6.4-8.2)
[2020-05-04] MEDS ORDERED: LORazepam 0.5 MG TAB PO PRN (08:00)
[2020-05-04] MEDS: FLUoxetine 20 MG CAP PO SCH ×2 (08:19→20:54)
[2020-05-04] MEDS: OXcarbazepine 150 MG TAB PO SCH ×2 (08:19→20:55)
[2020-05-04] MEDS: MORPHINE 15 MG SA TAB PO SCH ×2 (08:19→20:55)
[2020-05-04] MEDS: GABAPENTIN 300 MG CAP PO SCH ×3 (08:19→20:55)
[2020-05-04] MEDS: ENOXAPARIN 40MG/0.4ML SYRINGE (J1650 PER 10MG) SC SCH ×4 (08:22→23:50)
[2020-05-04 08:24] LABS: OSMOLALITY SERUM 266 MOSM/KG (275-295)
[2020-05-04] MEDS: COMBIVENT RESPIMAT 100-20MCG INHALER 4GM INH SCH ×4 (08:47→20:36)
[2020-05-04 08:50] LABS: ERYTHROCYTE SEDIMENTATION RATE 52 mm/hr (0-30)
[2020-05-04] MEDS ORDERED: MAG SULF 1GM/100ML (MAG RUN) 1 GM in IV 1 EA IV ONE (09:15)
[2020-05-04] MEDS ORDERED: NS 1,000 ML IV SCH (09:15)
[2020-05-04 09:46] LABS: FOLATE 10.3 NG/ML (>5.4); VITAMIN B12 LEVEL 845 PG/ML (247-911)
[2020-05-04] MEDS: methylPREDNISolone 125MG 2ML VIAL IV SCH ×2 (11:55→20:54)
[2020-05-04 13:24] LABS: OSMOLALITY URINE 447 MOSM/KG (500-800)
[2020-05-04 13:58] LABS: CREATININE,RANDOM URINE 59.4 MG/DL; SODIUM,RANDOM URINE 17 MEQ/L; UREA NITROGEN RANDOM URINE 559 MG/DL
--- NOTE | 2020-05-04 14:48 | ECGEPIP ---
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
--- NOTE | 2020-05-04 17:37 | IPNPDOC ---
Text Note Date of Service The patient was seen on 05/04/20. NOTE SUBJECTIVE: Seen at bed side today at 2 pm. Reports that her breathing is a l ittle better. When i first entered into the room she was sleeping comfortably at about 80 degree angle. SHe was saturating 90% with 6 [place] high flow Oxygen. She tells me her developed symptoms of viral prodrome on 04/25/20 and was tested positive for COVID on 04/27/20 PHYSICAL EXAMINATION: VITAL SIGNS: As Below. GENERAL APPEARANCE: Awake, alert, and oriented. Does not appear in acute di stress. HEENT: Atraumatic, normocephalic. Eyes are nonicteric. Trachea is midline. NECK: No JVD noted, no lymphadenopathy CARDIOVASCULAR: Normal S1,S2. Regular rate and rhythm. No clicks, rubs, or m urmurs LUNGS: Decreased breath sounds throughout. Bilateral diffuse crackles all through out the lung field ABDOMEN: Soft, nondistended. nontender. Normoactive bowel sounds throughout EXTREMITIES: No edema. Full and equal pulses in bilateral upper and lower extremities NEUROLOGICAL: No focal neurological deficits PSYCHIATRIC: Mood and affect appear appropriate LABORATORY DATA: See below. IMAGING: CXR: Streaky and hazy opacities again seen, bilaterally. New infiltrate at the right lung base. No significant pleural effusions. Neurostimulator device (perhaps) again seen, with electronic pack projecting over the left lung apex and leads extending toward the neck. Large patient size, with prominent breast shadows. IMPRESSION: Persistent bilateral hazy and streaky parenchymal opacities, with no significant improvement appreciated. No significant pleural effusions. ASSESSMENT and PLAN: Patient is a 49 year old female with a past medical history significant for ILD, chronic hypoxemic respiratory failure on 3-4L oxygen supplementation at baseline, hypertension, hyperlipidemia, tobacco abuse, and chronic pain who presented to the [facility] ER with complaint of worsening shortness of breath. Patient found to be hypoxic past baseline. Acute on chronic hypoxemic respiratory failure 2/2 inflammatory vs infectious process She carries a diagnosis of ILD. She is on high dose of steroids at home. Patient has a history of chronic hypoxic respiratory failure. She follows with [facility] in [place]. She has had multiple admissions within the past year and was intubated in 10/2019. Her previous CT scans have shown bilateral opacities predominately in the upper lobes. During her previous admissions she has been steroid responsive within 24-48 hours. She is a current smoker and the cause of her respiratory failure could be a Respiratory Bronchiolitis associated interstitial lung disease (RB-ILD). She has documented in the EMR that she has idiopathic pulmonary fibrosis although she has been significantly steroid responsive in the past which is not typical of IPF. Will Continue her on Solumedrol 80mg q8h. Empiric antibiotics for CAP. Rocephin and Doxy. Oxygen therapy orders to maintain O2 sats 86% to 90% Combivent and albuterol Probable COVID infection Patient has history of COVID-19 exposure as her currently has COVID-19( tested positive on 04/27/20). Her COVID-19 test is negative however the results are questionable given her symptoms and exposure history. Will repeat test in 2 days. Continue COVID isolation precautions. COVID-19 labs ordered which shows elevated inflammatory markers. These are all probably elevated at baseline for her due to her Lung disease which is an inflammatory process. Lactic acidosis possibly due to acute respiratory failure with hypoxia. will recheck. Sepsis cannot be ruled out. WBC may be chronically elevated from her prednisone use. , lactic acidosis is probably from hypoxia. CXR infiltrates probably from ILD +/-COVID Procal at 1.02 will cover with empiric antibiotics for respiratory infection. Possible CAP ceftriaxone and doxycycline. Hyponatremia Patient is hyponatremic with a Na of 129. Urine studies suggest that she may be a little dehydrated. Getting NS will monitor. Anemia Patient has a chronic anemia. She is currently at her baseline. Iron studies ordered however this can be pursued as an outpatient Will continue to monitor Elevated BNP Chronic diastolic CHF and possibly chronic right heart failure. Has moderate pulmonary hypertension. will be cautious about fluid administration. 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 Patient currently on Oxcarbazepine. Gabapentin at half the dose. continue MS contin at reduced dosage. Depression/Anxiety Continue Prozac. will change xanax to ativan Restless Leg Syndrome Continue ropinirole GI prophylaxis Protonix 40mg PO DVT prophylaxis Lovenox 40mg daily VS,Fishbone, I+O VS, Fishbone, I+O Laboratory Tests 05/04/20 00:17 05/04/20 00:18 05/04/20 07:02 Vital Signs Date Time Temp Pulse Resp B/P (MAP) Pulse Ox O2 Delivery O2 Flow Rate FiO2 05/04/20 16:35 96.7 83 26 127/61 (83) 82 Nasal Cannula 6.0 05/04/20 00:44 40 I&O- Last 24 Hours up to 6 AM 05/04/20 07:00 Intake Total 100 ml Balance 100 ml MARY HEADLEY MD May 04, 2020 17:37
[2020-05-04] MEDS: PRAVASTATIN 20 MG TAB PO SCH (20:54)
[2020-05-04] MEDS: PANTOPRAZOLE 40MG TAB (PROTONIX) PO SCH (20:54)
[2020-05-04] MEDS: rOPINIRole 1MG TAB PO SCH (20:54)
[2020-05-04] MEDS ORDERED: NS 500 ML IV ONE (22:00)
[2020-05-05] VITALS (12 sets, daily range): BP systolic 106–166; BP diastolic 56–80; O2SAT 89
[2020-05-05 00:16] LABS: CPK CREATINE PHOSPHOKINASE 365 U/L (26-192); MB/CK RELATIVE INDEX 3.56 (< OR =4); TROPONIN I < 0.02 NG/ML (< 0.10)
[2020-05-05] MEDS: COMBIVENT RESPIMAT 100-20MCG INHALER 4GM INH SCH ×7 (03:35→23:55)
[2020-05-05] MEDS: methylPREDNISolone 125MG 2ML VIAL IV SCH ×3 (03:38→20:01)
[2020-05-05] MEDS ORDERED: cefTRIAXone SOD 2 GM in D5W MINI-BAG PLUS 50 ML IV SCH (04:00)
[2020-05-05 04:57] LABS: HEMATOCRIT 29.1 % (36.0-47.0); HEMOGLOBIN 9.5 g/dl (12.0-15.5); MEAN CORPUSCULAR HEMOGLOBIN 25.2 pg (27.0-33.0); MEAN CORPUSCULAR HGB CONC 32.6 g/dl (32.0-36.5); MEAN CORPUSCULAR VOLUME 77.2 fl (80.0-96.0); PLATELET COUNT, AUTOMATED 278 10^3/uL (150-450); RED BLOOD COUNT 3.77 10^6/uL (4.00-5.40)
[2020-05-05 05:02] LABS: WHITE BLOOD COUNT 35.6 10^3/uL (4.0-10.0)
[2020-05-05 05:25] LABS: ALBUMIN 2.6 GM/DL (3.2-5.2); ALT/SGPT 33 U/L (12-78); BILIRUBIN,TOTAL 0.2 MG/DL (0.2-1.0); BLOOD UREA NITROGEN 7 MG/DL (7-18); CALCIUM LEVEL 8.4 MG/DL (8.5-10.1); CARBON DIOXIDE LEVEL 25 MEQ/L (21-32); CHLORIDE LEVEL 100 MEQ/L (98-107); CREATININE FOR GFR 0.37 MG/DL (0.55-1.30); GLOMERULAR FILTRATION RATE > 60.0 (>51); GLUCOSE, FASTING 140 MG/DL (70-100); POTASSIUM SERUM 3.8 MEQ/L (3.5-5.1); SODIUM LEVEL 133 MEQ/L (136-145); TOTAL PROTEIN 6.4 GM/DL (6.4-8.2)
[2020-05-05] MEDS ORDERED: TRIMETHOPRIM/SULFAMETHOXAZOLE 250 MG in D5W 500 ML IV SCH (08:00)
[2020-05-05] MEDS ORDERED: LevoFLOXacin IV 750 MG in IV 1 EA IV SCH (09:00)
[2020-05-05] MEDS: ENOXAPARIN 40MG/0.4ML SYRINGE (J1650 PER 10MG) SC SCH ×2 (09:00→20:02)
[2020-05-05] MEDS ORDERED: LIDOCAINE 1% MDV 20ML VIAL As Ordered ONE (09:11)
[2020-05-05] MEDS: PIPERACILLIN/TAZOBACTAM SOD 3.375 GM in D5W MINI-BAG PLUS 50 ML IV SCH ×3 (09:24→20:01)
[2020-05-05] MEDS: OXcarbazepine 150 MG TAB PO SCH ×2 (09:25→20:01)
[2020-05-05] MEDS: GABAPENTIN 300 MG CAP PO SCH ×3 (09:25→20:01)
[2020-05-05] MEDS: guaiFENesin ER 600 MG TAB PO SCH ×2 (09:26→20:01)
[2020-05-05] MEDS: FLUoxetine 20 MG CAP PO SCH ×2 (09:26→20:01)
[2020-05-05] MEDS: MORPHINE 15 MG SA TAB PO SCH ×2 (09:30→20:03)
[2020-05-05 09:54] LABS: D-DIMER QUANT 1303.43 ng/ml (<500)
[2020-05-05 10:08] LABS: C REACTIVE PROTEIN QUANTITATIV 11.8 MG/DL (0.00-0.30)
[2020-05-05 10:10] LABS: CK-MB VALUE MASS 7.6 NG/ML (<3.6); CPK CREATINE PHOSPHOKINASE 259 U/L (26-192); MB/CK RELATIVE INDEX 2.93 (< OR =4); TROPONIN I < 0.02 NG/ML (< 0.10)
[2020-05-05] MEDS: TRIMETHOPRIM/SULFAMETHOXAZOLE 250 MG in D5W 500 ML IV SCH ×3 (11:25→21:21)
--- NOTE | 2020-05-05 13:26 | CR ---
PULMONARY/CRITICAL CARE CONSULTATION DATE: 05/04/20 CHIEF COMPLAINT: Shortness of breath. HISTORY OF PRESENT ILLNESS: Ms. Colón is a 49-year-old female with a past medical history of interstitial lung disease with chronic hypoxemic respiratory failure on 3-4 liters nasal cannula oxygen at baseline, hypertension, ongoing tobacco abuse, hyperlipidemia, chronic pain on opioids who presented with complaints of worsening dyspnea as well as cough and occasional wheezing. Patient had also had fevers, chills and body aches and she was concerned as her had been diagnosed with COVID on 04/27/20 with symptoms starting on 04/25/20. Patient presented to the ED and was found to be more hypoxic than her baseline initially was requiring 6 liters nasal cannula oxygen and overnight was requiring increasing amounts of O2 supplementation and was placed on Vapotherm. Patient was also initially started on antibiotics with ceftriaxone and doxycycline which was later broadened to Zosyn and Levaquin. The Levaquin was then discontinued and she was placed on Bactrim. Patient was also started on high dose Solu-Medrol I.V. on admission given her previous history with her interstitial lung disease. Patient has had prior hospitalization for acute hypoxemic respiratory failure in the setting of ILD exacerbations. She has been intubated in the past as well in 2019. Patient will be given steroids and usually has a fairly rapid response to steroids as well as improvement on imaging. Patient has been following with bed spring maker in [place]. She was told that she had an interstitial lung disease, but she is unclear of the exact type. Patient previously was thought to have an ILD in the setting of her prior vaping as well as her cigarette smoking. Patient had quit smoking for a period of time; however, unfortunately did restart smoking cigarettes she states last year around December. She was treated with a course of prednisone starting around January for a few months by her bed spring maker although she states she has not been on any steroids recently or any antibiotics. She is still currently smoking about 1/2 a pack a day. Patient otherwise denies any episodes of vomiting. She does have some nausea currently. She has not had any chest pain and she does continue to have a cough productive of initially yellow mucus and now has had some scant hemoptysis in her mucus. She does also continue to have dyspnea particularly with exertion as well as some occasional wheezing that she notices. She denies noticing any increased lower extremity edema. PAST MEDICAL AND SURGICAL HISTORY: 1. ILD with chronic hypoxemic respiratory failure on 3-4 liters nasal cannula. 2. Hypertension. 3. Hyperlipidemia. 4. Occipital and trigeminal neuralgia. 5. Osteoarthritis. 6. Trochanteric bursitis of the hip. 7. Insomnia. 8. Nicotine dependence. 9. Restless leg syndrome. 10. Vitamin D deficiency. 11. Dorsal column stimulator. 12. Trigeminal nerve release. 13. Neuroma scar excision. 14. Multiple cervical surgeries. 15. Appendectomy. 16. Cholecystectomy. 17. section times 2. HOME MEDICATIONS: 1. Amlodipine. 2. Vitamin D. 3. Fluoxetine. 4. Gabapentin. 5. Morphine 30 mg twice a day. 6. Oxycarbazepine. 7. Pantoprazole. 8. Pravastatin. 9. Ropinirole. 10. Acetaminophen. 11. Albuterol inhaler. 12. Albuterol nebulized bronchodilator. 13. Alprazolam. 14. Cyclobenzaprine. ALLERGIES: No known drug allergies. SOCIAL HISTORY: Patient is a current active smoker of at least 1/2 a pack a day for more than 36 years. She had previously used E-cigarettes and vape although states she has still not been using them. She does medical marijuana. Patient has dogs at home, but denies any birds. She denies any hobbies involving dust including woodworking or stoneworking. FAMILY HISTORY: Mother with a history of COPD, hypertension, asthma and pancreatic cancer, father with history of renal cell carcinoma. No family history of autoimmune disease or connective tissue disease. PHYSICAL EXAMINATION: Vitals: Temperature 97.3, she did have a fever of 102.9 on admission, pulse 85, respirations 20, blood pressure 119/67, O2 sat 92% on Vapotherm at 30 liters a minute and 100% FiO2. In 1.6 liters, out 980 mL. General: Patient is sitting in bed and appears tachypneic and is using some accessory muscles for respiration. She is only able to speak in short phrases. HEENT: Normocephalic, atraumatic. Pupils are reactive to light bilaterally. There are moist mucous membranes noted. Mallampati is Class 4. Neck: Supple, trachea is midline. Unable to clearly evaluate JVD due to neck habitus. Cardiac: Regular rate and rhythm, normal S1 and S2, a questionable faint murmur auscultated. Pulmonary: Diminished breath sounds bilaterally with scattered rhonchi as well as crackles in the bases. Abdomen: Soft, nontender, nondistended. There is normal active bowel sounds. Extremities: There is no lower extremity edema noted bilaterally. LABORATORY DATA: WBC 35.6, hemoglobin 9.5, platelets 278. Chemistries: SO 133, potassium 3.8, chloride 100, bicarb 25, BUN 7, creatinine 0.37, glucose 140. AST/ALT 72/33, alkaline phosphatase 88. CK 365. Troponin negative. Albumin 2.6. CRP 11.8. Procalcitonin was 1.02. Lactic acid was elevated, repeat 0.8. BNP on admission was 803, repeat is 3969. IMAGING: Chest x-ray 05/04/20: There are hazy opacities seen bilaterally with evidence of some increased interstitial markings. There is a possible infiltrate in the right base although patient also has low lung volumes and some of this may be vascular crowding. There is a neurostimulator device seen again. ASSESSMENT AND PLAN: Ms. Colón is a 49-year-old female with a history of ILD with chronic hypoxemic respiratory failure, hypertension, hyperlipidemia, obesity, nicotine dependence and chronic pain who presented with worsening dyspnea and hypoxia. -Acute on chronic hypoxemic respiratory failure possibly secondary to ILD exacerbation versus COVID-19 pneumonia given her exposure history with her testing positive for COVID-19 approximately 10-11 days ago. Patient's COVID testing has been negative. Repeat test was also negative. Given her exposure history and her presentation; however, would continue her on COVID precautions. She is likely too far out at this point for remdesivir. Patient has had multiple admissions in the past as well as prior intubation for hypoxemic respiratory failure. She will usually be treated with steroids during her previous admission and will have significant improvement in her oxygenation as well as in her imaging findings. 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 Patient is following up with a bed spring maker in [place] and had been treated as an outpatient with a few months course of prednisone although she states she completed that a month or more ago. She is unfortunately smoking cigarettes still and she has been since December of last year. Would continue patient on Solu-Medrol 80 mg q8h. Given her leukocytosis and fever and concern for superimposed bacterial pneumonia would continue with broad spectrum antibiotics. She was initially on ceftriaxone and doxycycline which is changed to Zosyn. Would continue with Bactrim for possible MRSA coverage as well as possible PCP given her history of ILD and frequent steroid use. Would check an MRSA screen as well as a sputum culture and a sputum cytology for PCP. -Patient does have rhonchi on exam and was also noticing rhonchi and wheezing initially: Would continue with pulmonary toilet maneuvers and we will add Mucinex and an acapella device. We will encourage patient for awake pronation during the day as tolerated. She does have obesity which is complicating her hypoxia as well as I suspect she is having a degree of splinting and atelectasis. We will start hypertonic saline nebs as well to help with pulmonary toilet and mucus clearance. -Patient previously has had issues at times with pulmonary edema contributing to her hypoxia. During one of her previous admissions she had an echocardiogram done which did show grade 2 diastolic dysfunction as well as moderate pulmonary hypertension and trace MR. On that previous echo there was also findings of elevated CVP and she did receive p.r.n. Lasix during that admission. -Patient's BNP has increased. Wound monitor and consider p.r.n. Lasix if no improvement in her hypoxia with the high dose steroids and other maneuvers. Suspect with her chronic hypoxemic respiratory failure that she does have possible worsening pulmonary hypertension. We will continue patient on Vapotherm and continue to wean down FiO2 and flow rates as tolerated to maintain an O2 sat above 90%. -DVT prophylaxis: Lovenox. CODE STATUS: Full Code. Total care time spent not including any procedures approximately 1 hour and 30 minutes. MTDD
--- NOTE | 2020-05-05 14:39 | IPNPDOC ---
Text Note Date of Service The patient was seen on 05/05/20. NOTE Subjective: Patient is a 49 year old female with a PMHx of Interstitial lung disease (Chronic hypoxia at 3-4NC oxygen), HTN, DLP, Occipital / Trigeminal neuralgia, OA, Trochanteric bursitis, Chronic pain (s/p Dorsal Column Stimulator), RLS, Insomnia, Nicotine dependence, Vitamin D deficiency who presented to the ER with shortness of breath. Patient has been experiencing fevers, chills and body aches and notes that her was positive for COVID19 on 05/02. Patient was found to be more hypoxic than her baseline. While in the emergency room and imaging was consistent with priors dating back to 11/2018. She was admitted to the hospital service for further evaluation and treatment. Pulmonology was called on consultation. Patient was seen and examined at the bedside. Currently patient reports that her breathing is relatively unchanged see is seen on Vapotherm therapy. Patient reports that initially her cough is nonproductive. However, has become productive. She denies any chest pain or palpitations. Has not experience any nausea, vomiting, abdominal pain, diarrhea, or urinary discomfort. Objective: Vitals (See below) General: Lying in bed, no acute distress, comfortable, AAOx3 HEENT: NC, AT CVS: RRR, +S1S2 Lungs: Fair air entry b/l, -w/r/r Abdomen: Soft, ND, NT Extremities: - Edema, - Calf tenderness Assessment and plan: Acute on chronic hypoxemic respiratory failure - likely 2/2 inflammatory vs infectious process - Currently reports her breathing is doing worse - Currently on VapoTherm Therapy - Will continue to trend inflammatory markers - Has had intubations in the past / was steroid responsive in the past - Follows with Pulmonology in [place] - c/w Solumedrol - c/w Inhaled therapy as ordered - c/w Incentive spirometry / acapella / Mucinex - Pulmonology on consultation; appreciate their input Worsening leukocytosis; possibly 2/2 CAP / HCAP; Coverage for gram negative / positive / PCP - Hemodynamically stable / afebrile - PCT elevated; will trend - Blood cultures 05/04: Negative at 24 hours - Respiratory panel 05/04: Negative - MRSA negative - Will check sputum for culture / cytology - c/w Bactrim (Day #2); Will start Zosyn (Day #1); Will DC Ceftriaxone / Doxycycline Probable COVID infection - High liklihood of positive test given exposure to her who had tested positive on 04/27 - Will repeat COVID testing within 24 hours - Will follow inflammatory markers - Currently already on corticosteroid therapy Elevated BNP - Physical without and definitive fluid overload - s/p Fluids s/p Lactic acidosis Hyponatremia - Has been improving slowly - s/p IV fluid hydration Chronic microcytic anemia - Hg appears stable - Iron panel consistent with deficiency - Will start Ferrous sulfate Occipital neuralgia s/p trigeminal ganglion release, 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 - s/p Scar neuroma removal from the left complicated by trigeminal neuralgia and chronic neck and face pain - s/p Dorsal column stimulator in the back of head - c/w Oxcarbazepine - c/w Gabapentin reduced dose - c/w MS Contin at reduced dose Depression / Anxiety - c/w Fluoxetine / Ativan RLS - c/w Ropinirole GI prophylaxis - c/w Protonix; 40 BID DVT prophylaxis - c/w Lovenox Disposition: - Prognosis guarded VS,Fishbone, I+O VS, Fishbone, I+O Laboratory Tests 05/05/20 04:45 Vital Signs Date Time Temp Pulse Resp B/P (MAP) Pulse Ox O2 Delivery O2 Flow Rate FiO2 05/05/20 12:00 97.4 86 20 129/68 (88) 91 HVNI-Vapotherm 30.0 100 I&O- Last 24 Hours up to 6 AM 05/05/20 06:00 Intake Total 2100 ml Output Total 1350 ml Balance 750 ml KIMBERLY PENA MD May 05, 2020 14:39
[2020-05-05] MEDS: SODIUM CHLORIDE HYPERTONIC 3% 15ML NEB SOL INH SCH ×4 (14:48→23:56)
--- NOTE | 2020-05-05 15:36 | REP ---
PROCEDURE NAME: PICC LINE INSERTION W/SITERITE CLINICAL INFORMATION: IV access. COMPARISON: None. PROCEDURE DESCRIPTION: The procedure was performed by IRVING Valenzuela, under the direct supervision of Dr. Nelson. The risks and benefits of the procedure were explained to the patient and an informed consent was obtained verbally. Because this patient is currently COVID positive no paperwork was brought into the patient room. Two nurses present during the a verbal consent signed the consent form in the patient's absence. Directly prior to the start of the procedure a formal time-out was completed in the patient's room, as this procedure was done at the bedside. The left medial brachial vein was localized using ultrasound guidance. The skin was prepped and draped in sterile fashion. One mL of 1% lidocaine 10 mg/mL was used as a local anesthetic. Using ultrasound guidance the left medial brachial vein was cannulated, and a 0.018 guidewire was inserted and advanced to the level of SVC using portable x-ray guidance. The needle was removed and a 5.5 Nauruan dilator and peel-away sheath was inserted over the guidewire. A 5.5 Nauruan dual lumen catheter was cut to a length of 40 cm. The dilator was removed and the catheter was inserted over the guidewire with the tip ending at the level of the SVC. The peel-away sheath was removed and the catheter was flushed with heparinized saline as per hospital protocol. The catheter was affixed to the skin and a sterile dressing was applied. The patient tolerated the procedure well and there were no immediate complications. CONCLUSION: PICC line insertion into the left medial brachial vein. No fluoroscopy was utilized for this procedure. All imaging was obtained with serial portable chest x-rays. <Electronically signed by Barb Gay > 05/05/20 1510 <Electronically signed by Juancarlos Nelson > 05/05/20 1539
[2020-05-05] MEDS: SODIUM CHLORIDE 0.9% INJ 10 ML SYR IV SCH (17:37)
[2020-05-05] MEDS: ACETAMINOPHEN TAB 650MG DOSE (2X325MG) PO PRN (18:27)
[2020-05-05] MEDS: PRAVASTATIN 20 MG TAB PO SCH (20:00)
[2020-05-05] MEDS: PANTOPRAZOLE 40MG TAB (PROTONIX) PO SCH (20:00)
[2020-05-05] MEDS: rOPINIRole 1MG TAB PO SCH (20:01)
[2020-05-05] MEDS: FERROUS SULFATE 325MG TAB PO SCH (20:01)
[2020-05-05] MEDS ORDERED: METOCLOPRAMIDE INJ 10MG/2ML VIAL (J2765 PER 1) IV ONE (21:30)
[2020-05-05] MEDS: ONDANSETRON 4MG/2ML VIAL IV PRN (22:00)
[2020-05-06] VITALS (14 sets, daily range): BP systolic 112–149; BP diastolic 59–87
[2020-05-06] MEDS: PIPERACILLIN/TAZOBACTAM SOD 3.375 GM in D5W MINI-BAG PLUS 50 ML IV SCH ×4 (01:12→20:21)
[2020-05-06] MEDS: methylPREDNISolone 125MG 2ML VIAL IV SCH ×3 (03:41→20:21)
[2020-05-06] MEDS: TRIMETHOPRIM/SULFAMETHOXAZOLE 250 MG in D5W 500 ML IV SCH ×4 (03:42→21:54)
[2020-05-06] MEDS: SODIUM CHLORIDE 0.9% INJ 10 ML SYR IV SCH ×2 (05:12→17:36)
[2020-05-06 05:17] LABS: HEMATOCRIT 31.4 % (36.0-47.0); HEMOGLOBIN 9.9 g/dl (12.0-15.5); MEAN CORPUSCULAR HEMOGLOBIN 24.8 pg (27.0-33.0); MEAN CORPUSCULAR HGB CONC 31.5 g/dl (32.0-36.5); MEAN CORPUSCULAR VOLUME 78.5 fl (80.0-96.0); PLATELET COUNT, AUTOMATED 273 10^3/uL (150-450); WHITE BLOOD COUNT 29.4 10^3/uL (4.0-10.0)
[2020-05-06 05:47] LABS: ALBUMIN 2.6 GM/DL (3.2-5.2); ALT/SGPT 37 U/L (12-78); BILIRUBIN,TOTAL 0.2 MG/DL (0.2-1.0); BLOOD UREA NITROGEN 6 MG/DL (7-18); CALCIUM LEVEL 8.1 MG/DL (8.5-10.1); CARBON DIOXIDE LEVEL 23 MEQ/L (21-32); CHLORIDE LEVEL 100 MEQ/L (98-107); CREATININE FOR GFR 0.52 MG/DL (0.55-1.30); GLOMERULAR FILTRATION RATE > 60.0 (>51); GLUCOSE, FASTING 199 MG/DL (70-100); POTASSIUM SERUM 3.8 MEQ/L (3.5-5.1); SODIUM LEVEL 133 MEQ/L (136-145); TOTAL PROTEIN 5.8 GM/DL (6.4-8.2)
[2020-05-06] MEDS: SODIUM CHLORIDE HYPERTONIC 3% 15ML NEB SOL INH SCH ×4 (08:00→20:00)
[2020-05-06] MEDS: COMBIVENT RESPIMAT 100-20MCG INHALER 4GM INH SCH ×4 (08:11→20:03)
[2020-05-06] MEDS: ENOXAPARIN 40MG/0.4ML SYRINGE (J1650 PER 10MG) SC SCH ×2 (09:35→20:21)
[2020-05-06] MEDS: FLUoxetine 20 MG CAP PO SCH ×2 (09:36→20:20)
[2020-05-06] MEDS: ONDANSETRON 4MG/2ML VIAL IV PRN ×2 (09:36→20:57)
[2020-05-06] MEDS: ACETAMINOPHEN TAB 650MG DOSE (2X325MG) PO PRN ×2 (09:36→16:07)
[2020-05-06] MEDS: OXcarbazepine 150 MG TAB PO SCH ×2 (09:36→20:20)
[2020-05-06] MEDS: GABAPENTIN 300 MG CAP PO SCH ×3 (09:37→20:20)
[2020-05-06] MEDS: guaiFENesin ER 600 MG TAB PO SCH ×2 (09:37→20:20)
[2020-05-06] MEDS: FERROUS SULFATE 325MG TAB PO SCH ×2 (09:37→20:21)
[2020-05-06 10:30] LABS: LDH LACTATE DEHYDROGENASE 971 U/L (84-246)
--- NOTE | 2020-05-06 10:42 | IPNPDOC ---
Text Note Date of Service The patient was seen on 05/06/20. NOTE Subjective: Patient is a 49 year old female with a PMHx of Interstitial lung disease (Chronic hypoxia at 3-4NC oxygen), HTN, DLP, Occipital / Trigeminal neuralgia, OA, Trochanteric bursitis, Chronic pain (s/p Dorsal Column Stimulator), RLS, Insomnia, Nicotine dependence, Vitamin D deficiency who presented to the ER with shortness of breath. Patient has been experiencing fevers, chills and body aches and notes that her was positive for COVID19 on 05/02. Patient was found to be more hypoxic than her baseline. While in the emergency room and imaging was consistent with priors dating back to 11/2018. She was admitted to the hospital service for further evaluation and treatment. Pulmonology was called on consultation. Patient was seen and examined at the bedside. Patient denies any chest pain or palpitations. Reports that her breathing currently is okay. However, overnight she had some difficulty reported nausea, vomiting subsided. No abdominal pain. Patient has a Emanuel catheter in place. Objective: Vitals (See below) General: Sitting up in bed, appears to be comfortable, AAOx3 HEENT: NC, AT CVS: +S1S2 Lungs: Fair air entry b/l, no appreciable wheezing, rhonchi or rales Abdomen: Soft, nondistended and nontender Extremities: No evidence of edema, - Calf tenderness Assessment and plan: Acute on chronic hypoxemic respiratory failure - likely 2/2 inflammatory vs infectious process - This morning patient reports that she is relatively comfortable, however, overnight had some difficulties - Currently on VapoTherm Therapy; FiO2 requirement has improved - Trend inflammatory markers - Has had intubations in the past / was steroid responsive in the past - Follows with Pulmonology in [place] - c/w Solumedrol - c/w Inhaled therapy as ordered - c/w Incentive spirometry / acapella / Mucinex - Pulmonology on consultation; appreciate their input Leukocytosis; possibly 2/2 CAP / HCAP; Coverage for gram negative / positive / PCP - Improving - Hemodynamically stable / afebrile - PCT elevated - improving - Blood cultures 05/04: Negative at 48 hours - Respiratory panel 05/04: Negative - MRSA negative - Sputum culture 05/05: Contaminated; repeat sputum culture - Will sputum cytology pending - c/w Bactrim (Day #3); c/w Zosyn (Day #1); Will DC Ceftriaxone / Doxycycline Probable COVID infection - High likelihood of positive test given exposure to her who had tested positive on 04/27 - Will repeat COVID testing within 24 hours - Will follow inflammatory markers - Currently already on corticosteroid therapy Elevated BNP - Physical without and definitive fluid overload - s/p Fluids s/p Lactic acidosis Hyponatremia - Has been improving slowly - s/p IV fluid hydration Chronic microcytic anemia - Hg appears stable - Iron panel consistent with deficiency - c/w Ferrous sulfate Occipital neuralgia s/p trigeminal ganglion release, 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 - s/p Scar neuroma removal from the left complicated by trigeminal neuralgia and chronic neck and face pain - s/p Dorsal column stimulator in the back of head - c/w Oxcarbazepine - c/w Gabapentin reduced dose - c/w MS Contin at reduced dose Depression / Anxiety - c/w Fluoxetine / Ativan RLS - c/w Ropinirole GI prophylaxis - c/w Protonix; 40 BID DVT prophylaxis - c/w Lovenox Disposition: - Prognosis guarded VS,Fishbone, I+O VS, Fishbone, I+O Laboratory Tests 05/06/20 05:10 Vital Signs Date Time Temp Pulse Resp B/P (MAP) Pulse Ox O2 Delivery O2 Flow Rate FiO2 05/06/20 08:12 91 HVNI-Vapotherm 40.0 80 05/06/20 08:00 96.8 90 26 120/87 (98) I&O- Last 24 Hours up to 6 AM 05/06/20 06:00 Intake Total 3216.875 ml Output Total 2550 ml Balance 666.875 ml KIMBERLY PENA MD May 06, 2020 10:42
[2020-05-06] MEDS: MORPHINE 15 MG SA TAB PO SCH ×2 (11:15→20:24)
[2020-05-06 12:10] LABS: D-DIMER QUANT 1414.27 ng/ml (<500)
--- NOTE | 2020-05-06 12:21 | CCN ---
CRITICAL CARE NOTE DATE: 05/06/2020 The patient is seen in the intensive care unit on high-flow oxygen via VapoTherm with borderline oxygen saturations. She is a bit less tachypneic this morning. This is hospital day #2. She has an underlying history of steroid response of interstitial lung disease, possibly related to inhalational injuries. At bedside, her temperature is 97, pulse rate 87, respirations 26, blood pressure 132/66, and 80% oxygen via VapoTherm is yielding a saturation of 90%. Intake and output for the past 24 hours is 2831 in, 1800 out. Since midnight, however, 625 in, 1105 out. She is ill appearing. Her mucosae are moist. Neck is supple. There is no meningismus. Jugular veins are not appreciated to be distended. The carotid upstroke is palpable. Heart sounds are regular without appreciable murmur. Breath sounds are diminished bilaterally. There are bibasilar crepitant rales. Abdomen is soft with intact bowel sounds. Extremities: Pulses palpable times four. Motor function appears normal. DIAGNOSTIC STUDIES: Her sodium is 133, potassium 3.8, chloride 100, CO2 of 23, BUN 6, creatinine 0.52, glucose 199. Arterial blood gases showed a pH of 7.44, pCO2 of 34, pO2 of 61. COVID test was negative on May 04 with an exposure approximately 2 weeks ago. Her white cell count is down at 29.4, hemoglobin is 9.9, hematocrit 31.4, platelet count 273,000. IMAGING STUDIES: I reviewed her chest x-ray, and it shows bilateral interstitial changes on May 04. Sputum cultures were attempted. The sample was felt to be of poor quality. On medications review, this is day #2 of Zosyn, day #2 of Septra, day #2 of Solu-Medrol 80 mg every 8 hours. She is receiving Lovenox 40 mg twice a day. The primary problem requiring critical attention is acute on chronic respiratory failure and exacerbation of her interstitial lung disease. She is on day #2 of steroids. We will recheck a chest x-ray in the morning. Her oxygen requirement remains high. COVID pneumonia? There is a reason for suspicion. Her test was negative; however, given her presentation, it is reasonable to continue with precautions at this point. Infectious disease. The patient has been empirically started on Zosyn. I would continue empiric Zosyn. We will also continue the Septra for the time being until sputum studies for Pneumocystis return. Malclearance of secretions. The patient is responding to pulmonary toilet. We will continue to encourage coughing and expectoration of secretions. She did have some mild hemoptysis, old blood in the sputum. Fluid volume. The patient's intake and output were positive yesterday; however, they are negative since midnight. Her brain natriuretic peptide (BNP) was quite elevated. It may be necessary to administer a dose of Lasix if her oxygen saturations do not improve. Deep venous thrombosis (DVT) prophylaxis is being addressed with Lovenox. The patient's condition remains critical. Prognosis is guarded. Intensive care unit (ICU) care is appropriate. Ninety-seven minutes was spent in the provision of bedside critical care and coordination excluding any time for procedures. WALLACE
[2020-05-06] MEDS: PANTOPRAZOLE 40MG TAB (PROTONIX) PO SCH (20:20)
[2020-05-06] MEDS: rOPINIRole 1MG TAB PO SCH (20:20)
[2020-05-06] MEDS: PRAVASTATIN 20 MG TAB PO SCH (20:20)
[2020-05-07] VITALS (7 sets, daily range): BP systolic 114–136; BP diastolic 59–71
[2020-05-07] MEDS: COMBIVENT RESPIMAT 100-20MCG INHALER 4GM INH SCH ×7 (00:59→23:27)
[2020-05-07] MEDS: PIPERACILLIN/TAZOBACTAM SOD 3.375 GM in D5W MINI-BAG PLUS 50 ML IV SCH ×4 (02:06→21:05)
[2020-05-07] MEDS: ACETAMINOPHEN TAB 650MG DOSE (2X325MG) PO PRN ×2 (02:06→16:31)
[2020-05-07] MEDS: SODIUM CHLORIDE HYPERTONIC 3% 15ML NEB SOL INH SCH ×7 (04:00→23:27)
[2020-05-07] MEDS: TRIMETHOPRIM/SULFAMETHOXAZOLE 250 MG in D5W 500 ML IV SCH (04:33)
[2020-05-07] MEDS: methylPREDNISolone 125MG 2ML VIAL IV SCH ×3 (04:33→21:05)
[2020-05-07 05:34] LABS: BASO % 0.2 % (0.0-1.0); HEMATOCRIT 29.5 % (36.0-47.0); HEMOGLOBIN 9.5 g/dl (12.0-15.5); LYMPH # 1.3 10^3/uL (1.5-5.0); LYMPH % 5.6 % (24.0-44.0); MEAN CORPUSCULAR HGB CONC 32.2 g/dl (32.0-36.5); MEAN CORPUSCULAR VOLUME 77.6 fl (80.0-96.0); MONO # 0.6 10^3/uL (0.0-0.8); MONO % 2.4 % (0.0-5.0); NEUTROPHILS # 20.9 10^3/uL (1.5-8.5); NEUTROPHILS % 90.1 % (36.0-66.0); PLATELET COUNT, AUTOMATED 273 10^3/uL (150-450); WHITE BLOOD COUNT 23.2 10^3/uL (4.0-10.0)
[2020-05-07 06:11] LABS: ALBUMIN 2.5 GM/DL (3.2-5.2); ALT/SGPT 34 U/L (12-78); BILIRUBIN,TOTAL < 0.1 MG/DL (0.2-1.0); BLOOD UREA NITROGEN 7 MG/DL (7-18); CARBON DIOXIDE LEVEL 25 MEQ/L (21-32); CHLORIDE LEVEL 101 MEQ/L (98-107); CHOLESTEROL LEVEL 171 MG/DL (< 200); CPK CREATINE PHOSPHOKINASE 64 U/L (26-192); CREATININE FOR GFR 0.49 MG/DL (0.55-1.30); GLOMERULAR FILTRATION RATE > 60.0 (>51); GLUCOSE, FASTING 161 MG/DL (70-100); LDH LACTATE DEHYDROGENASE 897 U/L (84-246); PHOSPHORUS LEVEL 2.7 MG/DL (2.5-4.9); POTASSIUM SERUM 3.6 MEQ/L (3.5-5.1); SODIUM LEVEL 135 MEQ/L (136-145); TOTAL PROTEIN 5.7 GM/DL (6.4-8.2); TRIGLYCERIDES LEVEL 85 MG/DL (<150)
[2020-05-07] MEDS: SODIUM CHLORIDE 0.9% INJ 10 ML SYR IV SCH ×2 (06:32→18:38)
--- NOTE | 2020-05-07 08:20 | REP ---
INDICATION: ILD. COMPARISON: Comparison chest x-ray 04 May 2020. TECHNIQUE: Portable upright AP chest radiograph. FINDINGS: There has been rapid progression of interstitial pulmonary parenchymal opacity throughout the lung vu bilaterally. There is progression throughout the lung vu but heaviest consolidation with some air bronchograms there are seen in the right lung base. A left-sided PICC line is seen terminating the expected location of superior vena cava. A neurostimulator power plant is observed in the left subclavicular fossa. Monitoring electrodes and oxygen delivery tubing are seen.. IMPRESSION: Rapidly progressive diffuse interstitial lung disease question ARDS.. <Electronically signed by Juancarlos Nelson > 05/07/20 0522
[2020-05-07] MEDS: ONDANSETRON 4MG/2ML VIAL IV PRN (09:41)
[2020-05-07] MEDS: ENOXAPARIN 40MG/0.4ML SYRINGE (J1650 PER 10MG) SC SCH ×2 (09:42→21:05)
[2020-05-07] MEDS: MORPHINE 15 MG SA TAB PO SCH ×2 (09:42→21:04)
[2020-05-07] MEDS: GABAPENTIN 300 MG CAP PO SCH ×3 (09:42→21:03)
[2020-05-07] MEDS: OXcarbazepine 150 MG TAB PO SCH ×2 (09:42→21:04)
[2020-05-07] MEDS: FERROUS SULFATE 325MG TAB PO SCH ×2 (09:43→21:04)
[2020-05-07] MEDS: FLUoxetine 20 MG CAP PO SCH ×2 (09:43→21:04)
[2020-05-07] MEDS: guaiFENesin ER 600 MG TAB PO SCH ×2 (09:43→21:03)
--- NOTE | 2020-05-07 10:11 | IPNPDOC ---
Text Note Date of Service The patient was seen on 05/07/20. NOTE Subjective: Patient is a 49 year old female with a PMHx of Interstitial lung disease (Chronic hypoxia at 3-4NC oxygen), HTN, DLP, Occipital / Trigeminal neuralgia, OA, Trochanteric bursitis, Chronic pain (s/p Dorsal Column Stimulator), RLS, Insomnia, Nicotine dependence, Vitamin D deficiency who presented to the ER with shortness of breath. Patient has been experiencing fevers, chills and body aches and notes that her was positive for COVID19 on 05/02. Patient was found to be more hypoxic than her baseline. While in the emergency room and imaging was consistent with priors dating back to 11/2018. She was admitted to the hospital service for further evaluation and treatment. Pulmonology was called on consultation. Patient was seen and examined at the bedside. Currently patient reports her evening was uneventful. She reports nausea without any vomiting. Reports some abdominal discomfort without any diarrhea. Objective: Vitals (See below) General: Patient is sitting up in bed, appears to be comfortable, is awake, alert and oriented 3 HEENT: NC, AT CVS: +S1S2 Lungs: Air entry appears to be fair without any auscultated rhonchi, rales or wheezing Abdomen: Abdomen remains soft without any distention, mild epigastric tenderness noted Extremities: LE are free of edema, - Calf tenderness Assessment and plan: Acute on chronic hypoxemic respiratory failure - likely 2/2 inflammatory vs infectious process - Patient reports improvement of their breathing - Currently on VapoTherm Therapy - stable FiO2 requirement - Trend inflammatory improving - Has had intubations in the past / was steroid responsive in the past - Follows with Pulmonology in [place] - c/w Solumedrol - c/w Inhaled therapy as ordered - c/w Incentive spirometry / acapella / Mucinex - Pulmonology on consultation; appreciate their input Leukocytosis; possibly 2/2 CAP / HCAP; Coverage for gram negative / positive / PCP - Continues to improve - Hemodynamically stable / afebrile - PCT elevated - improving - Blood cultures 05/04: Negative at 48 hours - Respiratory panel 05/04: Negative - MRSA negative - Sputum culture 05/05: Contaminated; will repeat sputum culture - Will check sputum cytology pending - c/w Bactrim (Day #4); c/w Zosyn (Day #2); Will DC Ceftriaxone / Doxycycline Probable COVID infection - High likelihood of positive test given exposure to her who had tested positive on 04/27 - Repeat COVID testing negative - Will follow inflammatory markers - Currently already on corticosteroid therapy Abdominal pain / Nausea - Will check amylase / lipase Elevated BNP - Physical without and definitive fluid overload - s/p Fluids s/p Lactic acidosis Hyponatremia - Continues to improve - s/p IV fluid hydration Chronic microcytic anemia - Hg appears stable - Iron panel consistent with deficiency - c/w Ferrous sulfate Occipital neuralgia s/p trigeminal ganglion release, 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 - s/p Scar neuroma removal from the left complicated by trigeminal neuralgia and chronic neck and face pain - s/p Dorsal column stimulator in the back of head - c/w Oxcarbazepine - c/w Gabapentin reduced dose - c/w MS Contin at reduced dose Depression / Anxiety - c/w Fluoxetine / Ativan RLS - c/w Ropinirole GI prophylaxis - c/w Protonix; 40 BID DVT prophylaxis - c/w Lovenox Disposition: - Prognosis guarded VS,Fishbone, I+O VS, Fishbone, I+O Laboratory Tests 05/07/20 05:17 Vital Signs Date Time Temp Pulse Resp B/P (MAP) Pulse Ox O2 Delivery O2 Flow Rate FiO2 05/07/20 08:53 95 HVNI-Vapotherm 40.0 75 05/07/20 04:00 98.1 81 24 05/07/20 02:00 122/59 (80) I&O- Last 24 Hours up to 6 AM 05/07/20 06:00 Intake Total 1705.625 ml Output Total 2210 ml Balance -504.375 ml KIMBERLY PENA MD May 07, 2020 10:10
[2020-05-07 11:04] LABS: AMYLASE 35 U/L (25-115); LIPASE 23 U/L (73-393)
[2020-05-07] MEDS ORDERED: FUROSEMIDE 20MG/2ML VIAL (J1940) IV ONE (12:00)
[2020-05-07] MEDS: rOPINIRole 1MG TAB PO SCH (21:03)
[2020-05-07] MEDS: PANTOPRAZOLE 40MG TAB (PROTONIX) PO SCH (21:03)
[2020-05-07] MEDS: PRAVASTATIN 20 MG TAB PO SCH (21:04)
[2020-05-08] VITALS (9 sets, daily range): BP systolic 100–132; BP diastolic 58–74
[2020-05-08] MEDS: ACETAMINOPHEN TAB 650MG DOSE (2X325MG) PO PRN (00:17)
[2020-05-08] MEDS: ONDANSETRON 4MG/2ML VIAL IV PRN (00:17)
[2020-05-08] MEDS: PIPERACILLIN/TAZOBACTAM SOD 3.375 GM in D5W MINI-BAG PLUS 50 ML IV SCH ×4 (02:01→20:26)
[2020-05-08] MEDS: SODIUM CHLORIDE HYPERTONIC 3% 15ML NEB SOL INH SCH ×6 (03:27→23:00)
[2020-05-08] MEDS: COMBIVENT RESPIMAT 100-20MCG INHALER 4GM INH SCH ×6 (03:27→23:00)
[2020-05-08] MEDS: methylPREDNISolone 125MG 2ML VIAL IV SCH ×3 (04:00→20:31)
[2020-05-08 05:34] LABS: BASO % 0.1 % (0.0-1.0); EOS # 0.1 10^3/uL (0.0-0.5); EOS % 0.4 % (0.0-3.0); HEMATOCRIT 29.4 % (36.0-47.0); HEMOGLOBIN 9.5 g/dl (12.0-15.5); LYMPH # 1.3 10^3/uL (1.5-5.0); LYMPH % 8.2 % (24.0-44.0); MEAN CORPUSCULAR HEMOGLOBIN 25.3 pg (27.0-33.0); MEAN CORPUSCULAR HGB CONC 32.3 g/dl (32.0-36.5); MEAN CORPUSCULAR VOLUME 78.2 fl (80.0-96.0); MONO # 0.3 10^3/uL (0.0-0.8); MONO % 2.1 % (0.0-5.0); NEUTROPHILS # 14.2 10^3/uL (1.5-8.5); NEUTROPHILS % 87.8 % (36.0-66.0); PLATELET COUNT, AUTOMATED 259 10^3/uL (150-450); RED BLOOD COUNT 3.76 10^6/uL (4.00-5.40); WHITE BLOOD COUNT 16.2 10^3/uL (4.0-10.0)
[2020-05-08] MEDS: SODIUM CHLORIDE 0.9% INJ 10 ML SYR IV SCH ×2 (05:47→15:41)
[2020-05-08 06:04] LABS: ALBUMIN 2.6 GM/DL (3.2-5.2); ALT/SGPT 32 U/L (12-78); BILIRUBIN,TOTAL 0.2 MG/DL (0.2-1.0); BLOOD UREA NITROGEN 11 MG/DL (7-18); CALCIUM LEVEL 8.3 MG/DL (8.5-10.1); CARBON DIOXIDE LEVEL 29 MEQ/L (21-32); CHLORIDE LEVEL 101 MEQ/L (98-107); CHOLESTEROL LEVEL 158 MG/DL (< 200); CPK CREATINE PHOSPHOKINASE 53 U/L (26-192); CREATININE FOR GFR 0.44 MG/DL (0.55-1.30); GLOMERULAR FILTRATION RATE > 60.0 (>51); GLUCOSE, FASTING 109 MG/DL (70-100); LDH LACTATE DEHYDROGENASE 732 U/L (84-246); POTASSIUM SERUM 3.8 MEQ/L (3.5-5.1); SODIUM LEVEL 138 MEQ/L (136-145); TOTAL PROTEIN 5.8 GM/DL (6.4-8.2); TRIGLYCERIDES LEVEL 94 MG/DL (<150)
[2020-05-08] MEDS ORDERED: FUROSEMIDE 20MG/2ML VIAL (J1940) IV ONE (07:00)
[2020-05-08] MEDS: ENOXAPARIN 40MG/0.4ML SYRINGE (J1650 PER 10MG) SC SCH ×2 (08:40→20:26)
[2020-05-08] MEDS: OXcarbazepine 150 MG TAB PO SCH ×2 (08:41→20:31)
[2020-05-08] MEDS: GABAPENTIN 300 MG CAP PO SCH ×3 (08:41→20:30)
[2020-05-08] MEDS: FERROUS SULFATE 325MG TAB PO SCH ×2 (08:41→20:27)
[2020-05-08] MEDS: guaiFENesin ER 600 MG TAB PO SCH ×2 (08:41→20:28)
[2020-05-08] MEDS: FLUoxetine 20 MG CAP PO SCH ×2 (08:41→20:49)
[2020-05-08] MEDS: MORPHINE 15 MG SA TAB PO SCH ×2 (08:42→20:27)
--- NOTE | 2020-05-08 09:46 | IPNPDOC ---
Text Note Date of Service The patient was seen on 05/08/20. NOTE Subjective: Patient is a 49 year old female with a PMHx of Interstitial lung disease (Chronic hypoxia at 3-4NC oxygen), HTN, DLP, Occipital / Trigeminal neuralgia, OA, Trochanteric bursitis, Chronic pain (s/p Dorsal Column Stimulator), RLS, Insomnia, Nicotine dependence, Vitamin D deficiency who presented to the ER with shortness of breath. Patient has been experiencing fevers, chills and body aches and notes that her was positive for COVID19 on 05/02. Patient was found to be more hypoxic than her baseline. While in the emergency room and imaging was consistent with priors dating back to 11/2018. She was admitted to the hospital service for further evaluation and treatment. Pulmonology was called on consultation. Patient was seen and examined at the bedside. Patient reports her breathing is doing better and has been talking extensively in the room. Reports mild productive cough. Denies any N/V, abdominal pain, constipation. Has had a BM yesterday. Emanuel catheter in place. Objective: Vitals (See below) General: Patient is sitting up in bed, appears to be comfortable, is awake, alert and oriented 3 HEENT: NC, AT CVS: +S1S2 Lungs: Air entry appears to be fair without any auscultated rhonchi, rales or wheezing Abdomen: Abdomen remains soft without any distention, mild epigastric tenderness noted Extremities: LE are free of edema, - Calf tenderness Assessment and plan: Acute on chronic hypoxemic respiratory failure - likely 2/2 inflammatory lung disease, less likely 2/2 infectious etiology, COVID still on differential - Reports improvement of her breathing is speaking in full sentences - c/w VapoTherm; will taper down FiO2 as tolerated - Trend inflammatory improving - Has had intubations in the past / was steroid responsive in the past - Follows with Pulmonology in [place] - c/w Solumedrol - c/w Inhaled therapy as ordered - c/w Incentive spirometry / Acapella / Mucinex - Pulmonology on consultation; appreciate their input Leukocytosis; possibly 2/2 CAP / HCAP; Coverage for gram negative / positive / PCP - Trending down - Hemodynamically stable / afebrile - PCT elevated - improving - Blood cultures 05/04: Negative at 72 hours - Sputum culture 05/05: Contaminated; Repeat sputum culture - pending - Respiratory panel 05/04: Negative - MRSA negative - Sputum cytology - no PCP on gram stain - c/w Zosyn (Day #3); s/p Bactrim (Day #4); Will DC Ceftriaxone / Doxycycline Probable COVID infection - High likelihood of positive test given exposure to her who had tested positive on 04/27 - Repeat COVID testing negative (05/04, 05/06) - Inflammatory markers improving - Currently already on corticosteroid therapy Abdominal pain / Nausea - Will check amylase / lipase Elevated BNP - Physical without and definitive fluid overload - s/p Fluids s/p Lactic acidosis s/p Hyponatremia Chronic microcytic anemia - Hg appears stable - Iron panel consistent with deficiency - c/w Ferrous sulfate Occipital neuralgia s/p trigeminal ganglion release, 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 - s/p Scar neuroma removal from the left complicated by trigeminal neuralgia and chronic neck and face pain - s/p Dorsal column stimulator in the back of head - c/w Oxcarbazepine - c/w Gabapentin reduced dose - c/w MS Contin at reduced dose Depression / Anxiety - c/w Fluoxetine / Ativan RLS - c/w Ropinirole GI prophylaxis - c/w Protonix; 40 BID DVT prophylaxis - c/w Lovenox Disposition: - Clinically improving - Continue to taper down supplemental oxygen requirement VS,Nova, I+O VS, Nova, I+O Laboratory Tests 05/08/20 05:18 Vital Signs Date Time Temp Pulse Resp B/P (MAP) Pulse Ox O2 Delivery O2 Flow Rate FiO2 05/08/20 08:42 24 96 HVNI-Vapotherm 30.0 70 05/08/20 08:00 91 05/08/20 07:50 98.5 125/72 (89) I&O- Last 24 Hours up to 6 AM 05/08/20 06:00 Intake Total 1160 ml Output Total 2400 ml Balance -1240 ml KIMBERLY PENA MD May 08, 2020 09:46
--- NOTE | 2020-05-08 13:48 | CCN ---
CRITICAL CARE NOTE DATE: 05/07/2020 SUBJECTIVE: The patient is seen in the intensive care unit hypoxemic requiring high-flow Vapotherm oxygen. This is hospital day #3, high-flow oxygen day #3. OBJECTIVE: VITAL SIGNS: At bedside, her temperature is 98, pulse rate 81, respirations 29, blood pressure 127/59, 75% oxygen is yielding a saturation of 95%. INTAKE AND OUTPUT: For the past 24 hours 1971 in, 2570 out. Since midnight 360 in, 790 out. GENERAL APPEARANCE: At bedside, she is ill-appearing. Complaining of some nausea and some chills. HEENT: Her mucosa is pink and moist. There is no stridor. No adenopathy. No jugular venous distention is appreciable. HEART: Sounds are regular. RESPIRATORY: Breath sounds are coarse and diminished. Some crepitants on deep inspiration. ABDOMEN: Soft. Intact bowel sounds. EXTREMITIES: No significant edema. DIAGNOSTIC STUDIES: Her sodium is 135, potassium 3.6, chloride 101, CO2 of 25, BUN 7, creatinine 0.49, glucose 161. White cell count is down to 23.2, neutrophils percentage is 90, hemoglobin is down at 9.5, hematocrit 29.5, and platelet count 273,000. AST is 49, ALT 34, albumin 2.5, calcium 8. Phosphorus is 2.7. LDH is down at 897. D-dimer is 1414. COVID test has been negative x2. I have reviewed the chest x-ray performed this morning. There is diffuse bilateral ground-glass opacities increased when compared with the image of the . Microbiology review: The patient had a sputum study, which was negative for pneumocystis. MEDICATION REVIEW: This is day #3 of Zosyn, day #3 of Septra. She is receiving Solu-Medrol 80 mg every 8 hours and Combivent, MS Contin and Ativan. ASSESSMENT AND PLAN: The primary problem requiring critical attention is acute hypoxic respiratory failure. The patient continues to require Vapotherm high-flow oxygen to achieve adequate saturations, but in the high 80s to 90s. Acute interstitial pneumonitis. This appears to be related to an inhalational condition on top of chronic interstitial lung disease. She has responded to steroids in the past and appears, albeit slowly, to be responding again this time. Infectious disease. As the sputum is negative for pneumocystis, we will stop the Septra. Fluid volume. The patient's I and Os are slightly negative over the past 24 hours. Continue close monitoring. Deep vein thrombosis (DVT) being addressed with Lovenox. I have reviewed the patient's care with the attending hospitalist and the intensive care unit (ICU) team. We have discussed treatment goals for the day. Her condition remains critical. Prognosis is guarded. ICU is appropriate. CRITICAL CARE TIME: 73 minutes spent in the provision of bedside critical care and coordination; exclusive of any time spent in the performance of procedures.
--- NOTE | 2020-05-08 14:31 | CCN ---
CRITICAL CARE NOTE DATE: 05/08/2020 SUBJECTIVE: The patient is seen in the intensive care unit critically ill on Vapotherm high flow oxygen, this is hospital day #4. OBJECTIVE: VITAL SIGNS: Her temperature is 98, pulse rate 91, respirations 24, blood pressure 125/72, 70% oxygen is yielding a saturation of 96%. INTAKE AND OUTPUT: For the past 24 hours 1230 in and 2790 out; since midnight 400 in and 750 out. GENERAL APPEARANCE: At bedside, she is ill-appearing. HEENT: Her mucosa is pink. NECK: Supple. No meningismus. HEART: Sounds are regular without appreciable murmur. RESPIRATORY: Breath sounds are diminished with crepitant rales in the bases bilaterally. CHEST: Symmetric. Minimal accessory muscle engagement. ABDOMEN: Soft. EXTREMITIES: Show no significant edema. DIAGNOSTIC STUDIES: Her sodium is 138, potassium 3.8, chloride 101, CO2 of 29, BUN 11, creatinine 0.44, glucose 109. White cell count is down to 16.2 with 87% neutrophils. The hemoglobin is 9.5, hematocrit 29.4, platelet count 259,000. LDH is down to 732 and the C-reactive protein is 10.7. MEDICATION REVIEW: This is day #4 of Zosyn, day #4 of Solu-Medrol, and she is receiving Combivent. Lovenox 40 mg q. 12 hours and Protonix. ASSESSMENT AND PLAN: The primary problem requiring critical attention is acute hypoxic respiratory failure. Oxygen requirement is slightly less, but she still requires a high flow system via Vapotherm. Acute interstitial pneumonitis. The patient has a history of steroid responsiveness and does appear to be responding. I would continue with high doses of Solu-Medrol at the current time and we will recheck a chest x-ray in the morning. From an infectious disease standpoint, her white cell count is coming down. I agree with continuing Zosyn empirically for five to seven days pending other culture results. Fluid volume. The patient has responded favorably to a low dose of Lasix. Isolation status. Assuming she continues to show progress, it may be possible to move her out from intensive care unit (ICU) to the step-down unit soon. Deep vein thrombosis (DVT) prophylaxis is being addressed with Lovenox. Ulcer prophylaxis is in place with Protonix. The patient's condition is critical. Prognosis is guarded. I have updated the ICU team on plans of care for the day. CRITICAL CARE TIME: 68 minutes spent in the provision of bedside critical care and coordination; exclusive of any procedure time.
[2020-05-08] MEDS: FUROSEMIDE 20MG/2ML VIAL (J1940) IV SCH (17:54)
[2020-05-08] MEDS: PANTOPRAZOLE 40MG TAB (PROTONIX) PO SCH (20:27)
[2020-05-08] MEDS: PRAVASTATIN 20 MG TAB PO SCH (20:27)
[2020-05-08] MEDS: rOPINIRole 1MG TAB PO SCH (20:30)
[2020-05-08 21:09] LABS: Phencyclidine Negative (Cutoff=20)
[2020-05-09] VITALS: BP 110/56
[2020-05-09] MEDS: PIPERACILLIN/TAZOBACTAM SOD 3.375 GM in D5W MINI-BAG PLUS 50 ML IV SCH ×4 (02:52→21:18)
[2020-05-09] MEDS: methylPREDNISolone 125MG 2ML VIAL IV SCH (03:03)
[2020-05-09] MEDS: SODIUM CHLORIDE HYPERTONIC 3% 15ML NEB SOL INH SCH ×2 (03:51→07:42)
[2020-05-09] MEDS: COMBIVENT RESPIMAT 100-20MCG INHALER 4GM INH SCH ×5 (03:51→20:03)
[2020-05-09 04:00] VITALS: BP 110/61
[2020-05-09 04:54] LABS: BASO # 0.1 10^3/uL (0.0-0.2); BASO % 0.3 % (0.0-1.0); EOS # 0.1 10^3/uL (0.0-0.5); EOS % 0.6 % (0.0-3.0); HEMATOCRIT 30.2 % (36.0-47.0); HEMOGLOBIN 9.4 g/dl (12.0-15.5); LYMPH # 2.5 10^3/uL (1.5-5.0); MEAN CORPUSCULAR HEMOGLOBIN 24.5 pg (27.0-33.0); MEAN CORPUSCULAR HGB CONC 31.1 g/dl (32.0-36.5); MEAN CORPUSCULAR VOLUME 78.6 fl (80.0-96.0); MONO # 0.6 10^3/uL (0.0-0.8); MONO % 3.9 % (0.0-5.0); NEUTROPHILS % 76.3 % (36.0-66.0); PLATELET COUNT, AUTOMATED 306 10^3/uL (150-450); RED BLOOD COUNT 3.84 10^6/uL (4.00-5.40); WHITE BLOOD COUNT 15.7 10^3/uL (4.0-10.0)
[2020-05-09 05:24] LABS: ALBUMIN 2.6 GM/DL (3.2-5.2); ALT/SGPT 32 U/L (12-78); BILIRUBIN,TOTAL 0.2 MG/DL (0.2-1.0); BLOOD UREA NITROGEN 19 MG/DL (7-18); C REACTIVE PROTEIN QUANTITATIV 6.27 MG/DL (0.00-0.30); CALCIUM LEVEL 8.2 MG/DL (8.5-10.1); CARBON DIOXIDE LEVEL 29 MEQ/L (21-32); CHLORIDE LEVEL 102 MEQ/L (98-107); CHOLESTEROL LEVEL 175 MG/DL (< 200); CPK CREATINE PHOSPHOKINASE 34 U/L (26-192); GLOMERULAR FILTRATION RATE > 60.0 (>51); GLUCOSE, FASTING 93 MG/DL (70-100); LDH LACTATE DEHYDROGENASE 533 U/L (84-246); PHOSPHORUS LEVEL 4.5 MG/DL (2.5-4.9); POTASSIUM SERUM 3.8 MEQ/L (3.5-5.1); SODIUM LEVEL 139 MEQ/L (136-145); TOTAL PROTEIN 5.9 GM/DL (6.4-8.2); TRIGLYCERIDES LEVEL 153 MG/DL (<150)
[2020-05-09] MEDS: SODIUM CHLORIDE 0.9% INJ 10 ML SYR IV SCH ×2 (06:00→17:54)
[2020-05-09 08:00] VITALS: BP 121/59
[2020-05-09] MEDS: GABAPENTIN 300 MG CAP PO SCH ×3 (08:02→21:23)
[2020-05-09] MEDS: ENOXAPARIN 40MG/0.4ML SYRINGE (J1650 PER 10MG) SC SCH ×2 (08:02→21:19)
[2020-05-09] MEDS: guaiFENesin ER 600 MG TAB PO SCH ×2 (08:03→21:23)
[2020-05-09] MEDS: FUROSEMIDE 20MG/2ML VIAL (J1940) IV SCH ×2 (08:03→17:54)
[2020-05-09] MEDS: FERROUS SULFATE 325MG TAB PO SCH ×2 (08:06→21:20)
[2020-05-09] MEDS: MORPHINE 15 MG SA TAB PO SCH ×2 (08:06→21:22)
[2020-05-09] MEDS: FLUoxetine 20 MG CAP PO SCH ×2 (08:06→21:20)
--- NOTE | 2020-05-09 08:29 | REP ---
INDICATION: hypoxemia. COMPARISON: Comparison portable chest x-ray 07 May 2020. TECHNIQUE: Portable upright AP chest radiograph. FINDINGS: Lung vu are somewhat improved. There is more focal consolidation remaining in the right lower lung field and in the left lower lung field. Left-sided PICC line remains in place along with monitoring electrodes. Neurostimulator power plant projects in the left subclavicular soft tissues and there are clips in right upper quadrant. Diffuse interstitial changes are improved.. IMPRESSION: Somewhat improved lung vu. Focal consolidation persists in the lower lung vu.. <Electronically signed by Juancarlos Nelson > 05/09/20 0828
--- NOTE | 2020-05-09 10:14 | IPNPDOC ---
Text Note Date of Service The patient was seen on 05/09/20. NOTE Subjective: Patient is a 49 year old female with a PMHx of Interstitial lung disease (Chronic hypoxia at 3-4NC oxygen), HTN, DLP, Occipital / Trigeminal n euralgia, OA, Trochanteric bursitis, Chronic pain (s/p Dorsal Column Stimulator), RLS, Insomnia, Nicotine dependence, Vitamin D deficiency who presented to the ER with shortness of breath. Patient has been experiencing fevers, chills and body aches and notes that her was positive for COVID19 on 05/02. Patient was found to be more hypoxic than her baseline. While in the emergency room and imaging was consistent with priors dating back to 11/2018. She was admitted to the hospital service for further evaluation and treatment. Pulmonology was called on consultation. Patient was seen and examined at the bedside. Patient reports that she's feeling better. Reports that her breathing is doing well. Easy her has been able to move around the room. Denies any chest pain or palpitations. Reports that her coughing has become more productive. Denies any nausea, vomiting, abdominal pain or diarrhea. Patient has a Emanuel catheter that will be discontinued today. Objective: Vitals (See below) General: Patient is sitting up in bed, appears to be comfortable, is awake, alert and oriented 3 HEENT: NC, AT CVS: +S1S2 Lungs: Air entry is fair bilaterally, faint crackles, no rhonchi / wheezing Abdomen: Nondistended, nontender, remains soft Extremities: No edema is appreciated of her lower extremities, - Calf tenderness Assessment and plan: Acute on chronic hypoxemic respiratory failure - likely 2/2 inflammatory lung disease, less likely 2/2 infectious etiology, COVID still on differential - Reports breathing is doing better and is continuing to speak in full sentences without dropping her saturation - c/w VapoTherm - oxygen requirement continues to improve - Trend inflammatory improving - Has had intubations in the past / was steroid responsive in the past - Follows with Pulmonology in [place] - c/w Solumedrol; will reduce dose today - c/w Inhaled therapy as ordered - c/w Incentive spirometry / Acapella / Mucinex - Pulmonology on consultation; appreciate their input Leukocytosis; possibly 2/2 CAP / HCAP; Coverage for gram negative / positive / PCP - Continues to trend down - Hemodynamically stable / afebrile - PCT elevated - improving - Blood cultures 05/04: Negative at 72 hours - Sputum culture 05/05: Contaminated; Repeat sputum culture 05/07: Poor quality - Respiratory panel 05/04: Negative - MRSA negative - Sputum cytology - no PCP on gram stain - c/w Zosyn (Day #4); s/p Bactrim (4 day course); s/p Ceftriaxone / Doxycycline Probable COVID infection - High likelihood of positive test given exposure to her who had tested positive on 04/27 - Repeat COVID testing negative (05/04, 05/06) - Inflammatory markers improving - Will test for final day today; will remove precautions if negative - Will confer with hospital policy / guidelines - Currently already on corticosteroid therapy s/p Abdominal pain / Nausea - Amylase / lipase negative Elevated BNP - Physical without and definitive fluid overload - s/p Fluids - c/w Diuretics; renal function noted s/p Lactic acidosis s/p Hyponatremia Chronic microcytic anemia - Hg appears stable - Iron panel consistent with deficiency - c/w Ferrous sulfate Occipital neuralgia s/p trigeminal ganglion release, 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 - s/p Scar neuroma removal from the left complicated by trigeminal neuralgia and chronic neck and face pain - s/p Dorsal column stimulator in the back of head - c/w Oxcarbazepine - c/w Gabapentin reduced dose - c/w MS Contin at reduced dose Depression / Anxiety - c/w Fluoxetine / Ativan RLS - c/w Ropinirole GI prophylaxis - c/w Protonix; 40 BID DVT prophylaxis - c/w Lovenox Disposition: - Clinically improving - Continue to taper down supplemental oxygen requirement VS,[place], I+O VS, [place], I+O Laboratory Tests 05/09/20 04:25 Vital Signs Date Time Temp Pulse Resp B/P (MAP) Pulse Ox O2 Delivery O2 Flow Rate FiO2 05/09/20 08:06 27 91 HVNI-Vapotherm 05/09/20 08:00 97.9 89 121/59 (79) 20.0 45 I&O- Last 24 Hours up to 6 AM 05/09/20 06:00 Intake Total 1050 ml Output Total 1610 ml Balance -560 ml KIMBERLY PENA MD May 09, 2020 10:14
[2020-05-09] MEDS: OXcarbazepine 150 MG TAB PO SCH ×2 (10:21→21:20)
--- NOTE | 2020-05-09 10:28 | ECHO ---
DATE OF PROCEDURE: 05/05/2020 Age: 49 Gender: Female Height: 150 cm Weight: 78 kg REFERRING PHYSICIAN: Julio García DO INDICATION: Dyspnea. MEASUREMENTS: IVS 1.0 cm LV 5.0 cm LVPW 0.9 cm LA 3.7 cm Aorta 3.2 cm Mitral E wave velocity 88 Mitral A wave 96 E prime septal 9.6 E prime lateral 12.1 FINDINGS: This study is of acceptable technical quality. Underlying sinus rhythm. Left ventricle is of normal size and systolic function, I estimate LVEF 65% to 70%. No segmental wall motion abnormality is appreciated. The right ventricle appears dilated. The left atrium is of normal size. The right atrium was poorly visualized. The aortic valve is mildly sclerotic, but mobility of leaflets is preserved. Mitral, tricuspid, and pulmonic valves appear normal. No pericardial effusion is noted. Inferior vena cava is dilated, but does collapse with inspiration indicative of likely mildly elevated central venous pressure. Aortic root is normal. Aortic arch also appears normal. Abdominal aorta was not well seen. Doppler interrogation reveals no significant aortic stenosis or insufficiency. There is trace mitral and tricuspid insufficiency. Calculated pulmonary artery pressure is at least in the low 40s corresponding to moderate pulmonary hypertension. Trace pulmonic insufficiency is noted. Mitral inflow pattern and tissue Doppler imaging of the mitral annulus revealed grade 1 diastolic dysfunction. CONCLUSIONS: 1. Study is of acceptable technical quality, underlying sinus rhythm. 2. Normal LV size with preserved LV systolic function, grade 1 diastolic dysfunction. 3. Dilated right ventricle with at least moderate pulmonary hypertension. 4. Elevated central venous pressure. 5. Trace mitral and tricuspid insufficiency. MTDD
[2020-05-09] MEDS: methylPREDNISolone 40MG 1ML VIAL IV SCH ×2 (11:44→21:19)
[2020-05-09 12:00] VITALS: BP 123/69
--- NOTE | 2020-05-09 16:01 | CCN ---
CRITICAL CARE NOTE DATE: 05/09/2020 SUBJECTIVE: The patient is seen in the Intensive Care Unit. This is hospital day number five, ICU day number five. She is requiring Vapotherm oxygen, slightly less dyspneic today. OBJECTIVE: VITAL SIGNS: At bedside her temperature is 97.6, pulse rate 65, respirations 27, blood pressure 110/61, oxygen at a percentage of 45% is yielding a saturation of 91%. Input and output for the past 24 hours 1260 in, 1860 out. Since midnight, 80 and 150 out. GENERAL: She is ill-appearing. HEENT: Her oral mucosa is pink. NECK: Supple. I am unable to appreciate jugular venous distention. Her carotid upstroke is brisk. HEART: Heart sounds are regular without appreciable murmur. LUNGS: Breath sounds are diminished globally with inspiratory crepitus in the bases. No accessory muscle use at rest today. CHEST: Symmetric. ABDOMEN: soft. Bowel sounds are appreciated. EXTREMITIES: No significant edema. DIAGNOSTIC STUDIES: Her white cell count is 15.7 with 76% neutrophils. Hemoglobin is 9.4, hematocrit 30.2, platelet count 306,000. Sodium is 139, potassium 3.8, chloride 102, CO2 29, BUN 19, creatinine 0.95, glucose 93. LDH is down at 533, AST and ALT are 18 and 32 respectively. Albumin is 2.6. Calcium 8.2. On medications review, this is day number five of Zosyn. She is receiving Solu-Medrol 80 mg every 8 hours, and nebulized saline. Lovenox 40 every 12 hours, and Protonix is also prophylaxis. Lasix is given at 20 mg twice a day. ASSESSMENT AND PLAN: The primary problem requiring critical attention is acute hypoxic respiratory failure. Oxygen requirement is improving. We may attempt to change to a different oxygen delivery device today. Acute interstitial pneumonitis. The patient is responding to steroids. I would continue with the IV Solu-Medrol. From an Infectious Disease standpoint, Zosyn has been given empirically and she does appear to be afebrile. White cell count is slightly elevated but there is no obvious shift. Fluid volume. The patient is diuresing with low doses of Lasix. Isolation status: Infection control has been engaged to assess her candidacy for discontinuation of droplet isolation. DVT and ulcer prophylaxis are in place. The patient's condition is critical. Prognosis is guarded. The ICU team has been updated on her status and plan of care for the day. Sixty two minutes were spent in the provision of bedside critical care and coordination exclusive of any procedure time.
[2020-05-09 16:20] VITALS: BP 121/71
[2020-05-09 21:17] VITALS: BP 126/58
[2020-05-09] MEDS: rOPINIRole 1MG TAB PO SCH (21:19)
[2020-05-09] MEDS: PANTOPRAZOLE 40MG TAB (PROTONIX) PO SCH (21:22)
[2020-05-09] MEDS: PRAVASTATIN 20 MG TAB PO SCH (21:22)
[2020-05-10] VITALS (7 sets, daily range): BP systolic 103–143; BP diastolic 57–64; O2SAT 92
[2020-05-10] MEDS: COMBIVENT RESPIMAT 100-20MCG INHALER 4GM INH SCH ×6 (00:07→20:45)
[2020-05-10] MEDS: PIPERACILLIN/TAZOBACTAM SOD 3.375 GM in D5W MINI-BAG PLUS 50 ML IV SCH ×4 (02:03→21:15)
[2020-05-10] MEDS: methylPREDNISolone 40MG 1ML VIAL IV SCH ×3 (03:20→21:14)
[2020-05-10] MEDS: SODIUM CHLORIDE 0.9% INJ 10 ML SYR IV PRN ×2 (03:21→22:42)
[2020-05-10 03:46] LABS: BASO # 0.1 10^3/uL (0.0-0.2); BASO % 0.5 % (0.0-1.0); EOS # 0.4 10^3/uL (0.0-0.5); EOS % 2.7 % (0.0-3.0); HEMATOCRIT 30.3 % (36.0-47.0); HEMOGLOBIN 9.7 g/dl (12.0-15.5); LYMPH # 3.3 10^3/uL (1.5-5.0); MEAN CORPUSCULAR VOLUME 78.1 fl (80.0-96.0); MONO # 0.8 10^3/uL (0.0-0.8); MONO % 4.9 % (0.0-5.0); NEUTROPHILS # 10.9 10^3/uL (1.5-8.5); NEUTROPHILS % 67.2 % (36.0-66.0); PLATELET COUNT, AUTOMATED 295 10^3/uL (150-450); RED BLOOD COUNT 3.88 10^6/uL (4.00-5.40); WHITE BLOOD COUNT 16.3 10^3/uL (4.0-10.0)
[2020-05-10 04:19] LABS: ALBUMIN 2.6 GM/DL (3.2-5.2); ALT/SGPT 26 U/L (12-78); BILIRUBIN,TOTAL 0.2 MG/DL (0.2-1.0); BLOOD UREA NITROGEN 25 MG/DL (7-18); C REACTIVE PROTEIN QUANTITATIV 2.55 MG/DL (0.00-0.30); CALCIUM LEVEL 8.4 MG/DL (8.5-10.1); CARBON DIOXIDE LEVEL 32 MEQ/L (21-32); CHLORIDE LEVEL 102 MEQ/L (98-107); CHOLESTEROL LEVEL 183 MG/DL (< 200); CPK CREATINE PHOSPHOKINASE 38 U/L (26-192); CREATININE FOR GFR 0.72 MG/DL (0.55-1.30); GLOMERULAR FILTRATION RATE > 60.0 (>51); GLUCOSE, FASTING 106 MG/DL (70-100); LDH LACTATE DEHYDROGENASE 431 U/L (84-246); PHOSPHORUS LEVEL 5.6 MG/DL (2.5-4.9); POTASSIUM SERUM 3.1 MEQ/L (3.5-5.1); SODIUM LEVEL 139 MEQ/L (136-145); TOTAL PROTEIN 5.7 GM/DL (6.4-8.2); TRIGLYCERIDES LEVEL 161 MG/DL (<150)
[2020-05-10] MEDS: SODIUM CHLORIDE 0.9% INJ 10 ML SYR IV SCH ×2 (05:30→17:00)
[2020-05-10] MEDS: GABAPENTIN 300 MG CAP PO SCH ×3 (08:53→21:16)
[2020-05-10] MEDS: OXcarbazepine 150 MG TAB PO SCH ×2 (08:53→21:19)
[2020-05-10] MEDS: ENOXAPARIN 40MG/0.4ML SYRINGE (J1650 PER 10MG) SC SCH ×2 (08:53→21:14)
[2020-05-10] MEDS: MORPHINE 15 MG SA TAB PO SCH ×2 (08:57→21:17)
[2020-05-10] MEDS: guaiFENesin ER 600 MG TAB PO SCH ×2 (08:58→21:17)
[2020-05-10] MEDS: FERROUS SULFATE 325MG TAB PO SCH ×2 (08:58→21:18)
[2020-05-10] MEDS: FLUoxetine 20 MG CAP PO SCH ×2 (08:58→21:17)
[2020-05-10] MEDS: FUROSEMIDE 20MG/2ML VIAL (J1940) IV SCH ×2 (08:58→17:00)
[2020-05-10] MEDS ORDERED: POTASSIUM CHLORIDE 10 MEQ SR TABLET PO ONE (10:15)
--- NOTE | 2020-05-10 10:36 | IPN ---
PROGRESS NOTE DATE: 05/10/2020 SUBJECTIVE: Viridiana is seen in the PCU. She is admitted with respiratory failure. She is on Vapotherm. She feels quite well. She is very frustrated she is still on respiratory isolation. This was decided upon infection control nursing today. She says she has two more days of this. She is currently receiving Solu-Medrol, had the dose reduced yesterday, Zosyn which is now day #5 with good clinical response for presumed community acquired and health care associated pneumonia. She has had negative COVID testing although her was positive on 04/27. PHYSICAL EXAMINATION: VITAL SIGNS: Afebrile. Vital signs are stable. GENERAL APPEARANCE: Alert, conversant, quite talkative, in no respiratory distress at all. HEENT: Unremarkable. LUNGS: Clear. HEART: Regular rhythm. ABDOMEN: Soft, nontender. EXTREMITIES: No peripheral edema. LABORATORY DATA: White count 16.3 on steroids, hemoglobin 11.7. Electrolytes: Potassium is 3.1, electrolytes are otherwise unremarkable. C-reactive protein is down to 2.5. COVID test yesterday was negative. IMPRESSION: 1. Acute on chronic respiratory failure. She is clinically doing quite well. She is tolerating a reduced dose of steroids. Pulmonary has been following her, appreciate their input. Once her oxygen requirements are satisfactory for outpatient treatment, she should be stable for discharge. 2. Hyponatremia, supplemental potassium has been given. 3. History of depression, continue Fluoxetine. 4. History of hyperlipidemia. Continue her pravastatin.
--- NOTE | 2020-05-10 14:04 | CCN ---
PULMONARY CRITICAL CARE NOTE DATE: 05/10/2020 SUBJECTIVE: The patient is seen in the sterile intensive care unit (ICU). She had moved from the [facility] ICU yesterday. Remains on isolation, as she was exposed to her and is considered in need of quarantine. OBJECTIVE: GENERAL APPEARANCE: She is awake, alert, frustrated by her limitation from the quarantine. At bedside, she is in no acute distress. VITAL SIGNS: Temperature 98, pulse rate 83, respirations 18, blood pressure 137/60, 40% oxygen is yielding a saturation of 94%. INTAKE AND OUTPUT: For the past 24 hours 880 in and 935 out; since midnight 750 in and no output recorded. HEENT: Her mucosa are moist. NECK: Supple. HEART: Sounds regular. LUNGS: Breath sounds diminished with crepitant rales bilaterally. ABDOMEN: Soft. EXTREMITIES: No significant edema. DIAGNOSTIC STUDIES: Her sodium is 139, potassium 3.1, chloride 102, CO2 of 32, BUN 25, creatinine 0.72, glucose 106, calcium 8.4 on an albumin of 2.6. Her protein level is 5.7. C-reactive protein is down to 2.55. LDH is down to 431. CBC shows a white count of 16.3, hemoglobin 9.7, hematocrit 30.3, platelet count 295,000. Differential white cell count shows only 67% neutrophils. On reviewing microbiology, she has had three COVID tests, which were negative. MEDICATION REVIEW: This is day #6 of Zosyn. She is receiving Solu-Medrol 40 mg q. eight hours and at this point has received five days of IV steroids. She is on 20 of Lasix twice daily. ASSESSMENT AND PLAN: 1. Hypoxic respiratory failure. Oxygen need is decreasing. Her baseline oxygen need is 4 l/min via nasal cannula. 2. Acute interstitial pneumonitis. She has in the past and is again responding to steroids. She will need a long slow taper. 3. Tobacco abuse. The patient must stop tobacco inhalation as it may have been the trigger to this most recent episode. 4. From an infectious standpoint, this is day #6 of 7 empiric Zosyn. Pending her clinical course over the next 24 hours, the Zosyn could be discontinued. 5. Hypokalemia. Replacement has been ordered. 6. Isolation status. The patient is technically on quarantine as her tested positive. This will last another 24 hours. Her condition was downgraded and she is acceptably stable at this point to move out of ICU to the progressive care unit.
[2020-05-10 18:07] LABS: MYCOPLASMA PNEUMONIAE IgG <100 U/mL (0-99); MYCOPLASMA PNEUMONIAE IgM <770 U/mL (0-769)
[2020-05-10 18:07] LABS: MYCOPLASMA PNEUMONIAE IgG <100 U/mL (0-99); MYCOPLASMA PNEUMONIAE IgM <770 U/mL (0-769)
[2020-05-10] MEDS: PRAVASTATIN 20 MG TAB PO SCH (21:15)
[2020-05-10] MEDS: rOPINIRole 1MG TAB PO SCH (21:16)
[2020-05-10] MEDS: PANTOPRAZOLE 40MG TAB (PROTONIX) PO SCH (21:17)
[2020-05-11 00:41] VITALS: BP 101/54
[2020-05-11] MEDS: PIPERACILLIN/TAZOBACTAM SOD 3.375 GM in D5W MINI-BAG PLUS 50 ML IV SCH ×3 (02:33→14:00)
[2020-05-11] MEDS: COMBIVENT RESPIMAT 100-20MCG INHALER 4GM INH SCH ×5 (04:00→15:51)
[2020-05-11] MEDS: methylPREDNISolone 40MG 1ML VIAL IV SCH ×2 (04:08→11:26)
[2020-05-11] MEDS: SODIUM CHLORIDE 0.9% INJ 10 ML SYR IV SCH (04:08)
[2020-05-11 04:12] VITALS: BP 106/64
[2020-05-11 06:30] LABS: BASO # 0.1 10^3/uL (0.0-0.2); BASO % 0.8 % (0.0-1.0); EOS # 0.4 10^3/uL (0.0-0.5); EOS % 3.2 % (0.0-3.0); HEMATOCRIT 34.2 % (36.0-47.0); HEMOGLOBIN 10.8 g/dl (12.0-15.5); LYMPH # 3.1 10^3/uL (1.5-5.0); MEAN CORPUSCULAR HEMOGLOBIN 24.6 pg (27.0-33.0); MEAN CORPUSCULAR HGB CONC 31.6 g/dl (32.0-36.5); MEAN CORPUSCULAR VOLUME 77.9 fl (80.0-96.0); MONO # 0.8 10^3/uL (0.0-0.8); MONO % 6.3 % (0.0-5.0); NEUTROPHILS # 7.7 10^3/uL (1.5-8.5); NEUTROPHILS % 58.6 % (36.0-66.0); PLATELET COUNT, AUTOMATED 346 10^3/uL (150-450); RED BLOOD COUNT 4.39 10^6/uL (4.00-5.40); WHITE BLOOD COUNT 13.1 10^3/uL (4.0-10.0)
[2020-05-11 06:57] LABS: ALBUMIN 3.1 GM/DL (3.2-5.2); ALT/SGPT 29 U/L (12-78); BILIRUBIN,TOTAL 0.2 MG/DL (0.2-1.0); BLOOD UREA NITROGEN 21 MG/DL (7-18); C REACTIVE PROTEIN QUANTITATIV 1.43 MG/DL (0.00-0.30); CALCIUM LEVEL 8.9 MG/DL (8.5-10.1); CARBON DIOXIDE LEVEL 30 MEQ/L (21-32); CHLORIDE LEVEL 99 MEQ/L (98-107); CHOLESTEROL LEVEL 213 MG/DL (< 200); CPK CREATINE PHOSPHOKINASE 38 U/L (26-192); CREATININE FOR GFR 0.64 MG/DL (0.55-1.30); GLOMERULAR FILTRATION RATE > 60.0 (>51); GLUCOSE, FASTING 99 MG/DL (70-100); LDH LACTATE DEHYDROGENASE 380 U/L (84-246); MAGNESIUM LEVEL 2.1 MG/DL (1.8-2.4); PHOSPHORUS LEVEL 4.7 MG/DL (2.5-4.9); POTASSIUM SERUM 3.5 MEQ/L (3.5-5.1); SODIUM LEVEL 137 MEQ/L (136-145); TOTAL PROTEIN 6.5 GM/DL (6.4-8.2); TRIGLYCERIDES LEVEL 173 MG/DL (<150)
[2020-05-11 07:40] VITALS: BP 121/64
[2020-05-11] MEDS ORDERED: POTASSIUM CHLORIDE 10 MEQ SR TABLET PO ONE (09:15)
--- NOTE | 2020-05-11 09:32 | IPN ---
PROGRESS NOTE DATE: 05/11/2020 SUBJECTIVE: Viridiana is seen in the intensive care unit (ICU), feeling well, still requiring 10 liters of oxygen to maintain adequate oxygenation. Frustrated about her restrictions related to COVID quarantining and lack of mobility with her Vapotherm tubing. Overall, she feels "great." Wishes she were home. PHYSICAL EXAMINATION: VITAL SIGNS: Stable. Oxygen saturation 95%. Alert and oriented. No distress. LUNGS: Clear. HEART: Regular rate and rhythm. ABDOMEN: Soft, nontender. No peripheral edema. LABORATORY DATA: CBC: White count is down to 13,000, hemoglobin 10.8, which is stable. Electrolytes show potassium at 3.5. IMPRESSION: 1. Hypoxic respiratory failure. Pulmonary is involved. Appreciate Dr. Tamez's help. She is being weaned down. Her baseline action is 4 liters nasal cannula at home. 2. Acute interstitial pneumonitis. She is on day seven of seven of Zosyn as well as steroids. Pulmonary note she will need a long slow taper of her prednisone. 3. Hypokalemia. Supplemental potassium has been ordered. 4. Tobacco abuse. Supports of smoking cessation were discussed. 5. History of depression. Continue fluoxetine. 6. Hyperlipidemia. Continue pravastatin.
[2020-05-11] MEDS: ENOXAPARIN 40MG/0.4ML SYRINGE (J1650 PER 10MG) SC SCH (10:09)
[2020-05-11] MEDS: FLUoxetine 20 MG CAP PO SCH (10:09)
[2020-05-11] MEDS: FUROSEMIDE 20MG/2ML VIAL (J1940) IV SCH (10:09)
[2020-05-11] MEDS: guaiFENesin ER 600 MG TAB PO SCH (10:10)
[2020-05-11] MEDS: GABAPENTIN 300 MG CAP PO SCH ×2 (10:10→16:54)
[2020-05-11] MEDS: FERROUS SULFATE 325MG TAB PO SCH (10:11)
[2020-05-11] MEDS: MORPHINE 15 MG SA TAB PO SCH (10:11)
[2020-05-11] MEDS: OXcarbazepine 150 MG TAB PO SCH (10:12)
[2020-05-11 10:37] VITALS: O2SAT 99
[2020-05-11 11:10] VITALS: O2SAT 96
[2020-05-11 11:24] VITALS: BP 118/67
[2020-05-11] MEDS: SODIUM CHLORIDE 0.9% INJ 10 ML SYR IV PRN (11:27)
[2020-05-11] MEDS ORDERED: PRED10TA2 PO (16:31)
--- NOTE | 2020-05-11 16:45 | CCN ---
PULMONARY CRITICAL CARE SERVICE NOTE DATE: 05/11/2020 SUBJECTIVE: This patient is seen in her hospital room. She has been up and ambulating in the room without difficulty. Oxygen has been weaned to 4 liters and her saturation is 96%. She has minimal cough and no significant sputum production. OBJECTIVE: VITAL SIGNS: Temperature 97.8, pulse rate 81, respirations 18, blood pressure 118/67. INTAKE AND OUTPUT: For the past 24 hours 1300 in, unclear amount out; since midnight 290 in and 200 out. GENERAL APPEARANCE: She is awake, alert, oriented, and very eager to be discharged home. HEENT: Oral and nasal mucosa are pink. NECK: Supple. No meningismus. HEART: Sounds are regular without appreciable murmur. LUNGS: Breath sounds with coarse rales in the right base and otherwise clear. CHEST: Symmetric and moves symmetrically. ABDOMEN: Soft. EXTREMITIES: Show no edema. DIAGNOSTIC STUDIES: Her white cell count is down to 13.1, hemoglobin is 10.8, hematocrit 34.2, platelet count 346,000. CRP is down to 1.43. LDH is down to 380. Sodium 137, potassium 3.5, chloride 99, CO2 of 30, BUN 21, creatinine 0.64, glucose 99. MEDICATION REVIEW: This is day #7 of Zosyn. She is currently receiving Solu-Medrol 40 mg q. 8 hours. IMPRESSION/PLAN: 1. Acute interstitial pneumonia. The patient has responded well to steroids and is at a point where she can be changed to oral prednisone. I would recommend 40 for five days, 30 for five days, 20 for five days, 10 for five days, 5 for five days, and then off. 2. Infectious disease. The patient was being treated with Zosyn empirically. She has had seven days and I would discontinue it at this point. 3. The patient's clinical condition has improved significantly over the past 24 hours and I believe it would be safe to proceed with discharge. The patient follows regularly with pulmonary at [facility].
== END 2020-05-11 18:05 | disposition home or self-care (01) | DRG 196 ==
LOC: M ED 00:07 → M ED INP 02:23 → M ICU 10:02 → M PCU 05-09 16:12
PROVIDERS: ADMIT Internal Medicine; ATTEND Internal Medicine
PROC: 02HV33Z Insertion of Infusion Device into Superior Vena Cava, Percutaneous Approach (ICD-10-PCS; principal; 2020-05-05 15:00)
DX: J84.9 Interstitial pulmonary disease, unspecified (principal); J96.21 Acute and chronic respiratory failure with hypoxia; E87.1 Hypo-osmolality and hyponatremia; E87.2 Acidosis; Z72.0 Tobacco use; M54.81 Occipital neuralgia; G50.0 Trigeminal neuralgia; I27.20 Pulmonary hypertension, unspecified; F17.200 Nicotine dependence, unspecified, uncomplicated; G25.81 Restless legs syndrome; M19.90 Unspecified osteoarthritis, unspecified site; E55.9 Vitamin D deficiency, unspecified; G47.00 Insomnia, unspecified; D64.9 Anemia, unspecified; F41.9 Anxiety disorder, unspecified; F32.9 Major depressive disorder, single episode, unspecified; E78.5 Hyperlipidemia, unspecified; E87.6 Hypokalemia

== ENCOUNTER → 2020-07-20 | Outpatient (CLI) | payer MEDICARE, BC, OTHER ==
[~2020-07-20] MED LIST changes: +ALPR0.5T3 PO; +BACITAB PO; +CYCL5TAB PO
== END ==
LOC: M LABSMTC 09:42
PROVIDERS: ATTEND Physical Medicine & Rehabilitation Pain Medicine
DX: Z20.828 Contact with and (suspected) exposure to other viral communicable diseases (principal); Z11.59 Encounter for screening for other viral diseases

== ENCOUNTER → 2020-08-06 | Outpatient (CLI) | payer MEDICARE, BC, OTHER ==
[2020-08-06 12:04] LABS: C REACTIVE PROTEIN QUANTITATIV 0.34 MG/DL (0.00-0.30); RHEUMATOID FACTOR QUANT < 10.0 IU/ML (<15.0)
--- NOTE | 2020-08-08 14:27 | REP ---
INDICATION: INTERSTITIAL PULMONARY DISEASE *LABS 1ST* COMPARISON: Multiple the latest 11/23/2019 TECHNIQUE: Standard helical technique without the administration of intravenous contrast FINDINGS: Mediastinal and hilar adenopathy seen on the prior examination has significantly improved although seen in limited fashion since no intravenous contrast was administered. There are no pleural or pericardial effusions. There is no change in the imaged upper abdomen or imaged osseous structures. Evaluation of the lung vu shows scattered parenchymal bulla and pleural blebs. Scattered ground-glass opacities seen previously have resolved. Mild to moderate underlying interstitial lung disease is noted status quo. Early honeycomb lung formation may developing in the apical regions bilaterally. No new abnormal nodules, masses, or opacities have developed. IMPRESSION: Significant improvement <Electronically signed by Gene Hamm > 08/08/20 [id number]
== END ==
LOC: M RAD 10:40
PROVIDERS: ATTEND Internal Medicine Pulmonary Disease
DX: J84.9 Interstitial pulmonary disease, unspecified (principal)

== ENCOUNTER → 2020-08-31 | Outpatient (REF) | payer MEDICARE, BC | LOC: M SFHCADAM 15:08 | PROVIDERS: ATTEND Family Medicine | DX: R63.5 Abnormal weight gain (principal) | CPT/HCPCS: 84443; G0463 ==

== ENCOUNTER → 2020-09-08 | Outpatient (CLI) | payer MEDICARE, BC, OTHER | LOC: M LABSMTC 09:43 | DX: Z01.812 Encounter for preprocedural laboratory examination (principal); Z11.52 Encounter for screening for COVID-19; M79.18 Myalgia, other site ==

== ENCOUNTER → 2020-10-28 | Outpatient (CLI) | payer MEDICARE, BC, OTHER ==
[~2020-10-28] MED LIST changes: +ERGO500029 PO; +GASTROGRAFIN SOLUTION 30ML (Q9963) ONE; +ISOVUE-370 76% 100ML VIAL ONE; -VITA50005 PO
--- NOTE | 2020-10-28 16:39 | REP ---
INDICATION: ABD DISCOMFORT. COMPARISON: Comparison CT abdomen and pelvis 03 February 2010.. TECHNIQUE: Helical scanning is acquired and 3 mm axial images re-formatted. Coronal and sagittal MPR images are generated. The CT contrast enhancement dose is 100 mL of intravenous Isovue 370. FINDINGS: The digital preliminary telephone advice nurse radiograph shows a normal bowel gas pattern and cyst clips in the right upper quadrant. There is minimal diffuse fatty infiltration of the liver. Gallbladder surgically absent. There is again noted to be mild dilation of the common bile duct post cholecystectomy. The distal common bile duct measures 13 mm in greatest diameter today in the pancreatic head, previously by my measurement 11 mm. In the ruthann, the common at hepatic segment measures 22 mm, previously 16 mm. The right and left main biliary ducts in the periportal region are slightly prominent. More peripheral ducts do not appear dilated. This is of uncertain significance and should be correlated with liver function studies. No pancreatic mass or cyst is seen. Normal adrenal glands are seen bilaterally. The kidneys enhance symmetrically and are morphologically intact. No retroperitoneal mass or adenopathy is seen. Small and large bowel loops are normal in the abdomen and pelvis. No abdominal wall defect is seen. The uterus is surgically absent. The appendix is surgically absent by history. No bony destructive lesion is seen. There is fairly advanced osteoarthritic facet disease at L5-S1 bilaterally with a minimal 2-3 mm grade 1 degenerative L5-S1 spondylolisthesis. No spondylolysis. IMPRESSION: No acute abdominal or pelvic abnormality. Post cholecystectomy. Again noted is a common hepatic and common bile duct dilation post cholecystectomy slightly more prominent than on the 25/01 prior study but not new. This should be correlated with liver function studies. MRCP exam could be considered. There is minimal diffuse fatty infiltration of the liver. <Electronically signed by Juancarlos Nelson > 10/28/20 [id number]
== END ==
LOC: M PLAIMG 12:26
PROVIDERS: ATTEND Family Medicine
DX: R10.819 Abdominal tenderness, unspecified site (principal)
CPT/HCPCS: 74177; Q9963; Q9967

== ENCOUNTER → 2020-12-29 | Outpatient (CLI) | payer MEDICARE, BC, OTHER ==
[~2020-12-29] MED LIST changes: -GASTROGRAFIN SOLUTION 30ML (Q9963) ONE; -ISOVUE-370 76% 100ML VIAL ONE
== END ==
LOC: M LABSMTC 09:45
DX: Z20.822 Contact with and (suspected) exposure to COVID-19 (principal)

== ENCOUNTER → 2021-03-04 | Outpatient (CLI) | payer MEDICARE, BC, OTHER | LOC: M LABSMTC 11:25 | PROVIDERS: ATTEND Anesthesiology Pain Medicine | DX: Z01.818 Encounter for other preprocedural examination (principal); Z11.52 Encounter for screening for COVID-19 ==

== ENCOUNTER → 2021-04-10 | Outpatient (CLI) | payer MEDICARE, BC, OTHER | LOC: M LABSMTC 09:55 | PROVIDERS: ATTEND Anesthesiology | DX: Z20.828 Contact with and (suspected) exposure to other viral communicable diseases (principal); Z11.52 Encounter for screening for COVID-19 ==

== ENCOUNTER → 2021-04-26 | Outpatient (REF) | payer MEDICARE, BC ==
[~2021-04-26] MED LIST changes: -CEFD1CAP8 PO; +CEFD300C41 PO; -LEVO500T3 PO; +LEVO500T4 PO
[2021-04-26 18:21] LABS: BLOOD UREA NITROGEN 6 MG/DL (7-18); CALCIUM LEVEL 9.2 MG/DL (8.5-10.1); CARBON DIOXIDE LEVEL 27 MEQ/L (21-32); CHLORIDE LEVEL 101 MEQ/L (98-107); CREATININE FOR GFR 0.56 MG/DL (0.55-1.30); GLOMERULAR FILTRATION RATE > 60.0 (>51); GLUCOSE, FASTING 100 MG/DL (70-100); POTASSIUM SERUM 4.4 MEQ/L (3.5-5.1); SODIUM LEVEL 135 MEQ/L (136-145)
== END ==
LOC: M SFHCADAM 15:39
PROVIDERS: ATTEND Family Medicine
DX: E87.6 Hypokalemia (principal)
CPT/HCPCS: 80048; G0463

== ENCOUNTER → 2021-05-24 | Outpatient (CLI) | payer MEDICARE, BC, OTHER | LOC: M LABSMTC 10:39 | DX: Z20.822 Contact with and (suspected) exposure to COVID-19 (principal) ==

== ENCOUNTER 2021-07-09 11:01 | Inpatient (IN) | payer MEDICARE, BC, OTHER ==
[2021-07-09] VITALS (21 sets, daily range): BP systolic 97–122; BP diastolic 50–60; O2SAT 88–97
[~2021-07-09] VITALS: Ht 149.9 cm; Wt 74.0 kg
[2021-07-09] MEDS ORDERED: methylPREDNISolone 125MG 2ML VIAL IV ONE (11:15)
[2021-07-09] MEDS: COMBIVENT RESPIMAT 100-20MCG INHALER 4GM INH SCH ×3 (11:18→11:50)
[2021-07-09 11:32] LABS: VENOUS BASE EXCESS -0.7 (-2.0-2.0); VENOUS HCO3 23.9 MEQ/L (23.0-27.0); VENOUS O2 SATURATION 93.1 % (60.0-80.0); VENOUS PARTIAL PRESSURE CO2 39.5 mmHg (38.0-50.0); VENOUS PARTIAL PRESSURE O2 65.3 mmHg (30.0-50.0); VENOUS STANDARD HCO3 23.8 MEQ/L; VENOUS TOTAL CO2 25.1 MEQ/L (24.0-28.0)
[2021-07-09 11:36] LABS: BASO # 0.1 10^3/uL (0.0-0.2); BASO % 0.3 % (0.0-1.0); EOS # 0.1 10^3/uL (0.0-0.5); EOS % 0.3 % (0.0-3.0); HEMATOCRIT 32.4 % (36.0-47.0); HEMOGLOBIN 10.7 g/dl (12.0-15.5); LYMPH # 3.1 10^3/uL (1.5-5.0); LYMPH % 12.1 % (24.0-44.0); MEAN CORPUSCULAR HEMOGLOBIN 26.8 pg (27.0-33.0); MONO # 1.1 10^3/uL (0.0-0.8); MONO % 4.5 % (2.0-8.0); NEUTROPHILS # 20.9 10^3/uL (1.5-8.5); NEUTROPHILS % 82.2 % (36.0-66.0); PLATELET COUNT, AUTOMATED 310 10^3/uL (150-450); WHITE BLOOD COUNT 25.4 10^3/uL (4.0-10.0)
[2021-07-09] MEDS ORDERED: AZITHROMYCIN INJ 500 MG, VIAL MATE ADAPTER 1 EACH in NS 250 ML IV ONE (11:50)
[2021-07-09] MEDS ORDERED: cefTRIAXone SOD 2 GM in D5W MINI-BAG PLUS 50 ML IV ONE (11:50)
[2021-07-09] MEDS ORDERED: ACETAMINOPHEN 325 MG TAB PO ONE (12:10)
[2021-07-09 12:23] LABS: ALBUMIN 3.1 GM/DL (3.2-5.2); ALT/SGPT 23 U/L (12-78); BILIRUBIN,DIRECT 0.2 MG/DL (0.0-0.2); BILIRUBIN,TOTAL 0.5 MG/DL (0.2-1.0); BLOOD UREA NITROGEN 8 MG/DL (7-18); CALCIUM LEVEL 8.2 MG/DL (8.5-10.1); CARBON DIOXIDE LEVEL 25 MEQ/L (21-32); CHLORIDE LEVEL 98 MEQ/L (98-107); CREATININE FOR GFR 0.65 MG/DL (0.55-1.30); GLOMERULAR FILTRATION RATE > 60.0 (>51); GLUCOSE, FASTING 100 MG/DL (70-100); NT-PRO BNP 1264 PG/ML (<125); POTASSIUM SERUM 4.5 MEQ/L (3.5-5.1); SODIUM LEVEL 131 MEQ/L (136-145); THYROID STIMULATING HORMONE 0.665 uIU/ML (0.358-3.740); TOTAL PROTEIN 6.3 GM/DL (6.4-8.2)
[2021-07-09] MEDS ORDERED: HYDR-3363 PO (12:29)
[2021-07-09] MEDS ORDERED: AMLO1TAB24 PO (12:29)
[2021-07-09] MEDS ORDERED: HOME MED LIST COMPLETE! XX SCH (12:30)
[2021-07-09] MEDS ORDERED: hydrOXYzine 25 MG TAB PO PRN (13:10)
[2021-07-09] MEDS ORDERED: ALBUTEROL 90 MCG/ACT 8GM HFA INHALER INH PRN (13:10)
[2021-07-09] MEDS ORDERED: ACETAMINOPHEN 500 MG TAB PO PRN (13:10)
[2021-07-09] MEDS ORDERED: DOXYCYCLINE HYCLATE 100 MG in D5W MINI-BAG PLUS 100 ML IV SCH (14:00)
[2021-07-09] MEDS: GABAPENTIN 400MG CAP PO SCH ×2 (15:18→20:34)
[2021-07-09] MEDS ORDERED: NS 1,000 ML IV ONE (16:00)
[2021-07-09 16:34] LABS: ABG BASE EXCESS -1.6 (-2.0-2.0); ABG HCO3 22.7 MEQ/L (22.0-26.0); ABG O2 SATURATION 94.9 % (95.0-99.0); ABG PARTIAL PRESSURE CO2 36.6 mmHg (35.0-45.0); ABG PARTIAL PRESSURE O2 76.5 mmHg (75.0-100.0); ABG STANDARD HCO3 23.1 MEQ/L (22.0-26.0); ABG TOTAL CO2 23.8 MEQ/L (22.0-29.0)
[2021-07-09] MEDS: PIPERACILLIN/TAZOBACTAM SOD 4.5 GM in D5W MINI-BAG PLUS 50 ML IV SCH ×2 (17:59→22:25)
[2021-07-09] MEDS: BUDESONIDE 0.5 MG/2 ML INHALATION SUSPENSION INH SCH (19:52)
[2021-07-09] MEDS: IPRATROPIUM 0.5MG/ALBUTEROL 2.5MG INH SOL UD 3ML (DUONEB) NEB SCH (19:52)
[2021-07-09] MEDS: HEPARIN SOD (PORCINE) 5000UNITS/ML 1ML VIAL/SYRINGE SQ SCH (20:33)
[2021-07-09] MEDS: FLUoxetine 20MG CAP PO SCH (20:34)
[2021-07-09] MEDS: PRAVASTATIN 20 MG TAB PO SCH (20:34)
[2021-07-09] MEDS: PANTOPRAZOLE 40MG TAB (PROTONIX) PO SCH (20:34)
[2021-07-09] MEDS: MORPHINE 30 MG SA TAB PO SCH (20:35)
[2021-07-09] MEDS: guaiFENesin SYRUP 200MG 10ML UDC PO PRN (20:35)
[2021-07-09] MEDS: OXcarbazepine 150 MG TAB PO SCH (20:37)
[2021-07-09] MEDS: methylPREDNISolone 40MG 1ML VIAL IV SCH (22:24)
[2021-07-09] MEDS: LEVALBUTEROL 1.25 MG/0.5 ML CONCENTRATE NEB INH PRN (22:42)
[2021-07-09] MEDS: BENZONATATE 100MG CAPSULE PO SCH (23:24)
[2021-07-10] VITALS (17 sets, daily range): BP systolic 92–117; BP diastolic 53–58; O2SAT 90–94
[2021-07-10] MEDS: IPRATROPIUM 0.5MG/ALBUTEROL 2.5MG INH SOL UD 3ML (DUONEB) NEB SCH ×4 (02:40→19:05)
[2021-07-10] MEDS: PIPERACILLIN/TAZOBACTAM SOD 4.5 GM in D5W MINI-BAG PLUS 50 ML IV SCH ×2 (05:30→11:41)
[2021-07-10] MEDS: LEVALBUTEROL 1.25 MG/0.5 ML CONCENTRATE NEB INH PRN ×2 (05:30→05:33)
[2021-07-10] MEDS: BENZONATATE 100MG CAPSULE PO SCH ×3 (05:30→21:13)
[2021-07-10 05:52] LABS: HEMATOCRIT 29.5 % (36.0-47.0); HEMOGLOBIN 9.7 g/dl (12.0-15.5); MEAN CORPUSCULAR HEMOGLOBIN 26.3 pg (27.0-33.0); MEAN CORPUSCULAR HGB CONC 32.9 g/dl (32.0-36.5); MEAN CORPUSCULAR VOLUME 79.9 fl (80.0-96.0); PLATELET COUNT, AUTOMATED 270 10^3/uL (150-450); RED BLOOD COUNT 3.69 10^6/uL (4.00-5.40); WHITE BLOOD COUNT 19.1 10^3/uL (4.0-10.0)
[2021-07-10 06:22] LABS: ALBUMIN 2.7 GM/DL (3.2-5.2); ALT/SGPT 25 U/L (12-78); BILIRUBIN,TOTAL 0.2 MG/DL (0.2-1.0); BLOOD UREA NITROGEN 8 MG/DL (7-18); CALCIUM LEVEL 8.5 MG/DL (8.5-10.1); CARBON DIOXIDE LEVEL 26 MEQ/L (21-32); CHLORIDE LEVEL 102 MEQ/L (98-107); CREATININE FOR GFR 0.47 MG/DL (0.55-1.30); GLOMERULAR FILTRATION RATE > 60.0 (>51); GLUCOSE, FASTING 140 MG/DL (70-100); NT-PRO BNP 3173 PG/ML (<125); POTASSIUM SERUM 4.3 MEQ/L (3.5-5.1); SODIUM LEVEL 134 MEQ/L (136-145); TOTAL PROTEIN 6.2 GM/DL (6.4-8.2)
[2021-07-10] MEDS: BUDESONIDE 0.5 MG/2 ML INHALATION SUSPENSION INH SCH ×2 (07:11→19:05)
[2021-07-10] MEDS: guaiFENesin SYRUP 200MG 10ML UDC PO PRN (09:21)
[2021-07-10] MEDS: HEPARIN SOD (PORCINE) 5000UNITS/ML 1ML VIAL/SYRINGE SQ SCH ×2 (09:21→21:12)
[2021-07-10] MEDS: amLODIPine 5 MG TAB PO SCH (09:22)
[2021-07-10] MEDS: FLUoxetine 20MG CAP PO SCH ×2 (09:23→21:12)
[2021-07-10] MEDS: GABAPENTIN 400MG CAP PO SCH ×3 (09:23→21:12)
[2021-07-10] MEDS: MORPHINE 30 MG SA TAB PO SCH ×2 (09:25→21:13)
[2021-07-10] MEDS: OXcarbazepine 150 MG TAB PO SCH ×2 (09:25→21:14)
[2021-07-10] MEDS: methylPREDNISolone 40MG 1ML VIAL IV SCH (11:42)
[2021-07-10] MEDS ORDERED: cefTRIAXone SOD 1 GM in D5W MINI-BAG PLUS 50 ML IV SCH ×2 (12:00→18:00)
[2021-07-10] MEDS: DOXYCYCLINE HYCLATE 100 MG in D5W MINI-BAG PLUS 100 ML IV SCH (13:53)
[2021-07-10] MEDS: PANTOPRAZOLE 40MG TAB (PROTONIX) PO SCH (21:12)
[2021-07-10] MEDS: PRAVASTATIN 20 MG TAB PO SCH (21:12)
[2021-07-11] VITALS (15 sets, daily range): BP systolic 116–126; BP diastolic 58–63; O2SAT 91–97
[2021-07-11] MEDS: methylPREDNISolone 40MG 1ML VIAL IV SCH ×2 (00:48→12:31)
[2021-07-11] MEDS: DOXYCYCLINE HYCLATE 100 MG in D5W MINI-BAG PLUS 100 ML IV SCH (00:48)
[2021-07-11] MEDS: IPRATROPIUM 0.5MG/ALBUTEROL 2.5MG INH SOL UD 3ML (DUONEB) NEB SCH ×3 (01:25→12:40)
[2021-07-11] MEDS: BENZONATATE 100MG CAPSULE PO SCH (05:02)
[2021-07-11 05:34] LABS: HEMATOCRIT 28.6 % (36.0-47.0); HEMOGLOBIN 9.5 g/dl (12.0-15.5); MEAN CORPUSCULAR HEMOGLOBIN 26.6 pg (27.0-33.0); MEAN CORPUSCULAR HGB CONC 33.2 g/dl (32.0-36.5); MEAN CORPUSCULAR VOLUME 80.1 fl (80.0-96.0); PLATELET COUNT, AUTOMATED 281 10^3/uL (150-450); RED BLOOD COUNT 3.57 10^6/uL (4.00-5.40); WHITE BLOOD COUNT 16.9 10^3/uL (4.0-10.0)
[2021-07-11 05:59] LABS: ALBUMIN 2.6 GM/DL (3.2-5.2); ALT/SGPT 22 U/L (12-78); BILIRUBIN,TOTAL 0.2 MG/DL (0.2-1.0); BLOOD UREA NITROGEN 8 MG/DL (7-18); CALCIUM LEVEL 8.5 MG/DL (8.5-10.1); CARBON DIOXIDE LEVEL 26 MEQ/L (21-32); CHLORIDE LEVEL 102 MEQ/L (98-107); CREATININE FOR GFR 0.43 MG/DL (0.55-1.30); GLOMERULAR FILTRATION RATE > 60.0 (>51); GLUCOSE, FASTING 119 MG/DL (70-100); POTASSIUM SERUM 4.1 MEQ/L (3.5-5.1); SODIUM LEVEL 133 MEQ/L (136-145); TOTAL PROTEIN 6.4 GM/DL (6.4-8.2)
[2021-07-11] MEDS: BUDESONIDE 0.5 MG/2 ML INHALATION SUSPENSION INH SCH (07:09)
[2021-07-11] MEDS: HEPARIN SOD (PORCINE) 5000UNITS/ML 1ML VIAL/SYRINGE SQ SCH (09:00)
[2021-07-11] MEDS: OXcarbazepine 150 MG TAB PO SCH (09:00)
[2021-07-11] MEDS: GABAPENTIN 400MG CAP PO SCH (09:00)
[2021-07-11] MEDS: amLODIPine 5 MG TAB PO SCH (09:01)
[2021-07-11] MEDS: FLUoxetine 20MG CAP PO SCH (09:01)
[2021-07-11] MEDS: MORPHINE 30 MG SA TAB PO SCH (09:01)
[2021-07-11] MEDS ORDERED: DOXY-350 PO (11:17)
[2021-07-11] MEDS ORDERED: PRED10TA2 PO (11:17)
[2021-07-11] MEDS ORDERED: CEFD300C41 PO (11:17)
== END 2021-07-11 12:55 | disposition home health service (06) | DRG 871 ==
LOC: M ED 11:01 → M ED INP 13:15 → M PCU 14:09
PROVIDERS: ADMIT Internal Medicine; ATTEND Internal Medicine
DX: A41.9 Sepsis, unspecified organism (principal); J96.21 Acute and chronic respiratory failure with hypoxia; J44.0 Chronic obstructive pulmonary disease with (acute) lower respiratory infection; J84.9 Interstitial pulmonary disease, unspecified; E87.1 Hypo-osmolality and hyponatremia; J44.1 Chronic obstructive pulmonary disease with (acute) exacerbation; I11.0 Hypertensive heart disease with heart failure; G25.81 Restless legs syndrome; Z99.81 Dependence on supplemental oxygen; M54.81 Occipital neuralgia; I27.81 Cor pulmonale (chronic); F17.210 Nicotine dependence, cigarettes, uncomplicated; E78.5 Hyperlipidemia, unspecified; G50.0 Trigeminal neuralgia; D64.9 Anemia, unspecified; I50.810 Right heart failure, unspecified; I27.23 Pulmonary hypertension due to lung diseases and hypoxia; F41.9 Anxiety disorder, unspecified; G89.29 Other chronic pain; Z79.899 Other long term (current) drug therapy; G47.00 Insomnia, unspecified; M19.90 Unspecified osteoarthritis, unspecified site

== ENCOUNTER → 2021-08-17 | Outpatient (CLI) | payer MEDICARE, BC, OTHER ==
[~2021-08-17] MED LIST changes: +DOXY-350 PO; +HYDR-3363 PO
== END ==
LOC: M LABSMTC 09:15
PROVIDERS: ATTEND Physical Medicine & Rehabilitation
DX: Z01.818 Encounter for other preprocedural examination (principal); Z11.52 Encounter for screening for COVID-19; Z20.89 Contact with and (suspected) exposure to other communicable diseases; M54.2 Cervicalgia

== ENCOUNTER → 2021-08-31 | Outpatient (CLI) | payer MEDICARE, BC, OTHER | LOC: M PLAIMG 12:47 | PROVIDERS: ATTEND Internal Medicine Pulmonary Disease | DX: J84.9 Interstitial pulmonary disease, unspecified (principal) ==

== ENCOUNTER → 2021-08-31 | Outpatient (CLI) | payer MEDICARE, BC, OTHER | LOC: M PLAIMG 13:12 | PROVIDERS: ATTEND Physical Medicine & Rehabilitation | DX: R22.1 Localized swelling, mass and lump, neck (principal) ==

== ENCOUNTER → 2021-10-01 | Outpatient (CLI) | payer MEDICARE, BC, OTHER ==
[~2021-10-01] MED LIST changes: +ALBU2.5V10 NEB; -ALBU83IN NEB
== END ==
LOC: M LABSMTC 10:43
PROVIDERS: ATTEND Anesthesiology Pain Medicine
DX: Z01.812 Encounter for preprocedural laboratory examination (principal); Z20.822 Contact with and (suspected) exposure to COVID-19

== ENCOUNTER → 2022-02-14 | Outpatient (CLI) | payer MEDICARE, BC, OTHER ==
[~2022-02-14] MED LIST changes: -DOXY-350 PO; +DOXY-444 PO; +LEVO1TAB39 PO; -LEVO500T4 PO
== END ==
LOC: M WHC 11:01
PROVIDERS: ATTEND Family Medicine
DX: N63.10 Unspecified lump in the right breast, unspecified quadrant (principal)
CPT/HCPCS: 77066; G0279

== ENCOUNTER → 2022-02-22 | Outpatient (CLI) | payer MEDICARE, BC, OTHER | LOC: M LABSMTC 10:55 | PROVIDERS: ATTEND Anesthesiology Pain Medicine | DX: M79.18 Myalgia, other site (principal); Z11.52 Encounter for screening for COVID-19 ==

== ENCOUNTER → 2022-07-03 | Outpatient (REF) | payer MEDICARE, BC, OTHER ==
[2022-07-03 17:34] LABS: BASO # 0.1 10^3/uL (0.0-0.2); BASO % 0.5 % (0.0-1.0); EOS % 0.1 % (0.0-3.0); HEMATOCRIT 37.4 % (36.0-47.0); LYMPH # 1.1 10^3/uL (1.5-5.0); LYMPH % 11.3 % (24.0-44.0); MEAN CORPUSCULAR HEMOGLOBIN 27.3 pg (27.0-33.0); MEAN CORPUSCULAR HGB CONC 32.1 g/dl (32.0-36.5); MEAN CORPUSCULAR VOLUME 85.2 fl (80.0-96.0); MONO # 0.1 10^3/uL (0.0-0.8); MONO % 1.4 % (2.0-8.0); NEUTROPHILS # 8.2 10^3/uL (1.5-8.5); NEUTROPHILS % 86.4 % (36.0-66.0); PLATELET COUNT, AUTOMATED 370 10^3/uL (150-450); RED BLOOD COUNT 4.39 10^6/uL (4.00-5.40); WHITE BLOOD COUNT 9.5 10^3/uL (4.0-10.0)
[2022-07-03 17:51] LABS: FREE T4 0.92 NG/DL (0.89-1.76); THYROID STIMULATING HORMONE 0.733 uIU/ML (0.55-4.78)
[2022-07-03 17:52] LABS: ALBUMIN 3.3 G/DL (3.2-5.2); ALKALINE PHOSPHATASE 110 U/L (46-116); ALT/SGPT 20 U/L (7.0-40); AST/SGOT 16 U/L (<34); BILIRUBIN,TOTAL < 0.2 MG/DL (0.3-1.2); BLOOD UREA NITROGEN 9 MG/DL (9-23); CALCIUM LEVEL 8.9 MG/DL (8.5-10.1); CARBON DIOXIDE LEVEL 27 MMOL/L (20-31); CHLORIDE LEVEL 104 MMOL/L (98-107); CHOLESTEROL LEVEL 205 MG/DL (<200); CHOLESTEROL RISK RATIO 3.18 (<5); CREATININE FOR GFR 0.43 MG/DL (0.55-1.30); GLOMERULAR FILTRATION RATE > 60.0 (>51); GLUCOSE, FASTING 129 MG/DL (60-100); HDL CHOLESTEROL 64.4 MG/DL (>40); LDL CHOLESTEROL 125.6 MG/DL (<100); NON-HDL-C 140.6 MG/DL; POTASSIUM SERUM 4.8 MMOL/L (3.5-5.1); SODIUM LEVEL 137 MMOL/L (136-145); TOTAL PROTEIN 6.6 G/DL (5.7-8.2); TRIGLYCERIDES LEVEL 75 MG/DL (<150)
== END ==
LOC: M SFHCADAM 14:06
PROVIDERS: ATTEND Family Medicine
DX: Z00.00 Encounter for general adult medical examination without abnormal findings (principal); Z79.899 Other long term (current) drug therapy

== ENCOUNTER → 2022-11-16 | Outpatient (REF) | payer MEDICARE, BC, OTHER ==
[~2022-11-16] MED LIST changes: +CYAN-1 PO; -CYAN100050 PO; -ROPI1TAB3 PO; +ROPI1TAB73 PO
== END ==
LOC: M SFHCADAM 10:33
PROVIDERS: ATTEND Physician Assistant
DX: E55.9 Vitamin D deficiency, unspecified (principal); Z79.899 Other long term (current) drug therapy

== ENCOUNTER → 2023-05-17 | Outpatient (CLI) | payer MEDICARE, BC, OTHER ==
[~2023-05-17] MED LIST changes: +CEFD1CAP9 PO; -CEFD300C41 PO
== END ==
LOC: M WHC 09:23
PROVIDERS: ATTEND Family Medicine
DX: Z12.31 Encounter for screening mammogram for malignant neoplasm of breast (principal); Z13.820 Encounter for screening for osteoporosis; E89.40 Asymptomatic postprocedural ovarian failure

== ENCOUNTER 2023-09-26 17:47 | Inpatient (IN) | payer MEDICARE, BC ==
[~2023-09-26] VITALS: Ht 147.3 cm; Wt 65.6 kg
[~2023-09-26 17:47] MED LIST changes: +DOXY-440 PO; -DOXY-444 PO; +FLUO-365 PO; -FLUO20CA22 PO; +TIZA4CAP3 PO; -TIZA4CAP6 PO
[2023-09-26 18:49] LABS: ETHYL ALCOHOL (ETHANOL) < 0.003 % (0.000-0.010)
[2023-09-26 18:51] LABS: SALICYLATE LEVEL < 3.0 MG/DL (<30)
[2023-09-26 18:55] LABS: ALBUMIN 3.2 G/DL (3.2-5.2); ALKALINE PHOSPHATASE 84 U/L (46-116); ALT/SGPT 27 U/L (7.0-40); AST/SGOT 50 U/L (<34); BILIRUBIN,DIRECT < 0.1 MG/DL (<0.4); BILIRUBIN,TOTAL 0.2 MG/DL (0.3-1.2); BLOOD UREA NITROGEN 9 MG/DL (9-23); CALCIUM LEVEL 8.1 MG/DL (8.5-10.1); CARBON DIOXIDE LEVEL 27 MMOL/L (20-31); CHLORIDE LEVEL 107 MMOL/L (98-107); CK-MB VALUE MASS < 1.0 NG/ML (<3.6); CPK CREATINE PHOSPHOKINASE 104 U/L (34-145); CREATININE FOR GFR 0.87 MG/DL (0.55-1.30); GLOMERULAR FILTRATION RATE > 60.0 (>51); GLUCOSE, FASTING 85 MG/DL (60-100); MB/CK RELATIVE INDEX 0.96 (< OR =4); POTASSIUM SERUM 5.2 MMOL/L (3.5-5.1); SODIUM LEVEL 139 MMOL/L (136-145); TOTAL PROTEIN 5.8 G/DL (5.7-8.2)
[2023-09-26 18:56] LABS: BASO # 0.1 10^3/uL (0.0-0.2); BASO % 0.8 % (0.0-1.0); EOS # 0.4 10^3/uL (0.0-0.5); EOS % 5.8 % (0.0-3.0); HEMATOCRIT 35.8 % (36.0-47.0); HEMOGLOBIN 11.3 g/dl (12.0-15.5); LYMPH # 2.7 10^3/uL (1.5-5.0); LYMPH % 37.4 % (24.0-44.0); MEAN CORPUSCULAR HEMOGLOBIN 27.4 pg (27.0-33.0); MEAN CORPUSCULAR HGB CONC 31.6 g/dl (32.0-36.5); MEAN CORPUSCULAR VOLUME 86.7 fl (80.0-96.0); MONO # 0.7 10^3/uL (0.0-0.8); MONO % 9.5 % (2.0-8.0); NEUTROPHILS # 3.4 10^3/uL (1.5-8.5); NEUTROPHILS % 46.4 % (36.0-66.0); PLATELET COUNT, AUTOMATED 188 10^3/uL (150-450); RED BLOOD COUNT 4.13 10^6/uL (4.00-5.40); WHITE BLOOD COUNT 7.3 10^3/uL (4.0-10.0)
[2023-09-26] MEDS: NS 500 ML IV ONE (19:03)
[2023-09-26 19:07] LABS: OSMOLALITY SERUM 283 MOSM/KG (275-295)
[2023-09-26] MEDS: ATROPINE SULF 0.4 MG/ML 1ML VIAL IV STA ×2 (19:23→21:15)
[2023-09-26] MEDS ORDERED: ISOVUE-370 76% 100ML VIAL As Ordered ONE (19:25)
[2023-09-26 21:00] LABS: AMPHETAMINES LEVEL URINE NEGATIVE (NEGATIVE); BARBITURATES URINE NEGATIVE (NEGATIVE); COCAINE METABOLITE URINE NEGATIVE (NEGATIVE); METHADONE URINE NEGATIVE (NEGATIVE)
[2023-09-26 21:01] LABS: PHENCYCLIDINE URINE NEGATIVE (NEGATIVE)
[2023-09-26 21:04] LABS: BENZODIAZEPINES URINE POSITIVE (NEGATIVE); CANNABINOIDS URINE POSITIVE (NEGATIVE); OPIATES URINE POSITIVE (NEGATIVE)
[2023-09-26] MEDS: NS 1,000 ML IV ONE (21:15)
[2023-09-26] MEDS ORDERED: FURO20TA2 PO (22:15)
[2023-09-26] MEDS ORDERED: FLUO40CA PO (22:15)
[2023-09-26] MEDS ORDERED: GABA-282 PO (22:15)
[2023-09-26] MEDS ORDERED: TIZA10TA PO (22:15)
[2023-09-26] MEDS ORDERED: MOM 30ML SUSPENSION UDC PO PRN (22:15)
[2023-09-26] MEDS ORDERED: CVS1CRE56 EXT (22:15)
[2023-09-26] MEDS ORDERED: PANT20TA51 PO (22:15)
[2023-09-26] MEDS ORDERED: HOME MED LIST COMPLETE! XX SCH (22:20)
[2023-09-26] MEDS ORDERED: NICOTINE 21MG/24HR 1 EA TRANSDERMAL TD PRN (22:35)
[2023-09-26] MEDS: PRAVASTATIN 20 MG TAB PO SCH (23:24)
[2023-09-26] MEDS: DOCUSATE SODIUM 100MG CAPSULE PO SCH (23:24)
[2023-09-27] MEDS: PANTOPRAZOLE 20 MG TAB PO SCH (00:06)
[2023-09-27] MEDS ORDERED: ATROPINE SULF 0.4 MG/ML 1ML VIAL IV STA (03:54)
[2023-09-27] MEDS: ATROPINE SULF 0.4 MG/ML 1ML VIAL IV STA (04:04)
[2023-09-27 06:57] LABS: HEMATOCRIT 37.9 % (36.0-47.0); MEAN CORPUSCULAR HEMOGLOBIN 27.1 pg (27.0-33.0); MEAN CORPUSCULAR HGB CONC 31.7 g/dl (32.0-36.5); MEAN CORPUSCULAR VOLUME 85.7 fl (80.0-96.0); PLATELET COUNT, AUTOMATED 179 10^3/uL (150-450); RED BLOOD COUNT 4.42 10^6/uL (4.00-5.40); WHITE BLOOD COUNT 7.4 10^3/uL (4.0-10.0)
[2023-09-27 07:25] LABS: ALBUMIN 3.1 G/DL (3.2-5.2); ALKALINE PHOSPHATASE 87 U/L (46-116); ALT/SGPT 24 U/L (7.0-40); AST/SGOT 20 U/L (<34); BILIRUBIN,TOTAL 0.4 MG/DL (0.3-1.2); BLOOD UREA NITROGEN 6 MG/DL (9-23); CARBON DIOXIDE LEVEL 29 MMOL/L (20-31); CHLORIDE LEVEL 109 MMOL/L (98-107); CREATININE FOR GFR 0.66 MG/DL (0.55-1.30); GLOMERULAR FILTRATION RATE > 60.0 (>51); GLUCOSE, FASTING 95 MG/DL (60-100); POTASSIUM SERUM 4.1 MMOL/L (3.5-5.1); SODIUM LEVEL 141 MMOL/L (136-145); TOTAL PROTEIN 5.7 G/DL (5.7-8.2)
[2023-09-27] MEDS: FLUoxetine 20MG CAP PO SCH (09:22)
[2023-09-27] MEDS: ENOXAPARIN 40MG/0.4ML SYRINGE (J1650 PER 10MG) SC SCH (09:22)
[2023-09-27] MEDS ORDERED: ASPI81TA26 PO (12:34)
[2023-09-27 14:30] VITALS: BP 118/59
[2023-09-27 14:41] VITALS: TEMP 96.9
[2023-09-27 14:46] VITALS: O2SAT 100
== END 2023-09-27 15:48 | disposition home or self-care (01) | DRG 71 ==
LOC: M ED 17:47 → M ED INP 22:15 → M PCU 09-28 01:33 → UNDODISIN 09-28 01:48
PROVIDERS: ADMIT Family Medicine; ATTEND Internal Medicine
DX: G93.40 Encephalopathy, unspecified (principal); J96.11 Chronic respiratory failure with hypoxia; J84.9 Interstitial pulmonary disease, unspecified; D64.9 Anemia, unspecified; I10 Essential (primary) hypertension; F32.A Depression, unspecified; I67.1 Cerebral aneurysm, nonruptured; E78.5 Hyperlipidemia, unspecified; F41.9 Anxiety disorder, unspecified; M19.90 Unspecified osteoarthritis, unspecified site; R00.1 Bradycardia, unspecified; F17.210 Nicotine dependence, cigarettes, uncomplicated; Z99.81 Dependence on supplemental oxygen; G25.81 Restless legs syndrome; M70.60 Trochanteric bursitis, unspecified hip; E55.9 Vitamin D deficiency, unspecified; G47.00 Insomnia, unspecified; M54.81 Occipital neuralgia; G50.0 Trigeminal neuralgia; Z79.899 Other long term (current) drug therapy; Z79.82 Long term (current) use of aspirin

== ENCOUNTER → 2024-01-02 | Outpatient (CLI) | payer MEDICARE, BC ==
[~2024-01-02] MED LIST changes: +ASPI81TA26 PO; +CVS1CRE56 EXT; +FLUO40CA PO; +FURO20TA2 PO; +GABA-1490 PO; +GABA-282 PO; -GABA600T4 PO; +PANT20TA51 PO; +TIZA10TA PO
[2024-01-02 13:54] LABS: BASO # 0.1 10^3/uL (0.0-0.2); BASO % 1.1 % (0.0-1.0); EOS # 0.5 10^3/uL (0.0-0.5); EOS % 5.5 % (0.0-3.0); HEMATOCRIT 40.5 % (36.0-47.0); HEMOGLOBIN 12.6 g/dl (12.0-15.5); LYMPH # 2.2 10^3/uL (1.5-5.0); LYMPH % 25.6 % (24.0-44.0); MEAN CORPUSCULAR HEMOGLOBIN 27.2 pg (27.0-33.0); MEAN CORPUSCULAR HGB CONC 31.1 g/dl (32.0-36.5); MEAN CORPUSCULAR VOLUME 87.5 fl (80.0-96.0); MONO # 0.8 10^3/uL (0.0-0.8); MONO % 9.5 % (2.0-8.0); NEUTROPHILS # 4.9 10^3/uL (1.5-8.5); NEUTROPHILS % 58.1 % (36.0-66.0); PLATELET COUNT, AUTOMATED 221 10^3/uL (150-450); RED BLOOD COUNT 4.63 10^6/uL (4.00-5.40); WHITE BLOOD COUNT 8.4 10^3/uL (4.0-10.0)
[2024-01-02 14:00] LABS: ALBUMIN 3.6 G/DL (3.2-5.2); ALKALINE PHOSPHATASE 79 U/L (46-116); ALT/SGPT 14 U/L (7.0-40); AST/SGOT 17 U/L (<34); BILIRUBIN,TOTAL 0.4 MG/DL (0.3-1.2); BLOOD UREA NITROGEN 9 MG/DL (9-23); CALCIUM LEVEL 9.7 MG/DL (8.5-10.1); CARBON DIOXIDE LEVEL 32 MMOL/L (20-31); CHLORIDE LEVEL 105 MMOL/L (98-107); CREATININE FOR GFR 0.74 MG/DL (0.55-1.30); FREE T4 1.25 NG/DL (0.89-1.76); GLOMERULAR FILTRATION RATE > 60.0 (>51); GLUCOSE, FASTING 103 MG/DL (60-100); POTASSIUM SERUM 4.8 MMOL/L (3.5-5.1); SODIUM LEVEL 140 MMOL/L (136-145); THYROID STIMULATING HORMONE 0.535 uIU/ML (0.55-4.78); TOTAL PROTEIN 6.5 G/DL (5.7-8.2)
== END ==
LOC: M PLALAB 11:01
PROVIDERS: ATTEND Family Medicine
DX: R63.4 Abnormal weight loss (principal)

== ENCOUNTER 2025-01-25 19:15 | Inpatient (IN) | payer MEDICARE, BC ==
[~2025-01-25] VITALS: Ht 157.5 cm; Wt 43.1 kg
[~2025-01-25 19:15] MED LIST changes: +CLOT15CR4 EXT; -CVS1CRE56 EXT; -CYCL5TAB PO; +CYCL5TAB4 PO; +GABA-1172 PO; -GABA-282 PO; +MORP-138 PO; -MORP15TASA PO; -PRAV40TA2 PO; +PRAV40TA85 PO
[2025-01-25 19:42] LABS: ABG BASE EXCESS 3.3 (-2.0-2.0); ABG HCO3 27.8 MMOL/L (22.0-26.0); ABG O2 SATURATION 97.2 % (95.0-99.0); ABG PARTIAL PRESSURE CO2 42.1 mmHg (35.0-45.0); ABG PARTIAL PRESSURE O2 91.7 mmHg (75.0-100.0); ABG STANDARD HCO3 27.4 MMOL/L. (22.0-26.0); ABG TOTAL CO2 29.1 MMOL/L (22.0-29.0); ABG pH (ARTERIAL) 7.438 UNITS (7.350-7.450)
[2025-01-25] MEDS: NS (Normal Saline) 0.9% 1,000 ML IV ONE (19:52)
[2025-01-25 20:22] LABS: BASO # 0.1 10^3/uL (0.0-0.2); BASO % 0.8 % (0.0-1.0); EOS # 0.1 10^3/uL (0.0-0.5); EOS % 0.9 % (0.0-3.0); LYMPH # 2.8 10^3/uL (1.5-5.0); LYMPH % 28.1 % (24.0-44.0); MONO # 0.9 10^3/uL (0.0-0.8); MONO % 8.8 % (2.0-8.0); NEUTROPHILS # 6.0 10^3/uL (1.5-8.5); NEUTROPHILS % 60.9 % (36.0-66.0); PLATELET COUNT, AUTOMATED 255 10^3/uL (150-450)
[2025-01-25 20:38] LABS: ETHYL ALCOHOL (ETHANOL) 0.117 % (0.000-0.010)
[2025-01-25 20:39] LABS: CK-MB VALUE MASS 2.3 NG/ML (<3.6)
[2025-01-25 20:40] LABS: SALICYLATE LEVEL < 3.0 MG/DL (<30)
[2025-01-25 20:41] LABS: ALT/SGPT 18 U/L (7.0-40); AST/SGOT 31 U/L (<34); CALCIUM LEVEL 9.2 MG/DL (8.5-10.1); CARBON DIOXIDE LEVEL 28 MMOL/L (20-31); CHLORIDE LEVEL 102 MMOL/L (98-107); CREATININE FOR GFR 0.61 MG/DL (0.55-1.30); GLOMERULAR FILTRATION RATE > 90.0 (>51); POTASSIUM SERUM 3.8 MMOL/L (3.5-5.1); SODIUM LEVEL 142 MMOL/L (136-145)
[2025-01-25 20:43] LABS: CPK CREATINE PHOSPHOKINASE 100 U/L (34-145); MB/CK RELATIVE INDEX 2.30 (< OR =4)
[2025-01-25 20:44] LABS: KETONE, URINE AUTO RFX NEGATIVE (NEGATIVE); LEUKOCYTE ESTERASE UR AUTO RFX NEGATIVE (NEGATIVE); NITRITE, URINE AUTO RFX NEGATIVE (NEGATIVE); RBC, URINE AUTO RFX 0 /HPF (0-3); SQUAM EPITHELIAL CELL UR AURFX 0 /HPF (0-6); WBC, URINE AUTO RFX 0 /HPF (0-3)
[2025-01-25 21:14] LABS: AMPHETAMINES LEVEL URINE NEGATIVE (NEGATIVE)
[2025-01-25 21:15] LABS: BARBITURATES URINE NEGATIVE (NEGATIVE); BENZODIAZEPINES URINE POSITIVE (NEGATIVE); CANNABINOIDS URINE POSITIVE (NEGATIVE); COCAINE METABOLITE URINE NEGATIVE (NEGATIVE); METHADONE URINE NEGATIVE (NEGATIVE); OPIATES URINE POSITIVE (NEGATIVE); PHENCYCLIDINE URINE NEGATIVE (NEGATIVE)
[2025-01-26] VITALS (7 sets, daily range): BP systolic 100–168; BP diastolic 60–90; TEMP 97.5–98.5; O2SAT 94–100
[2025-01-26 00:36] LABS: CK-MB VALUE MASS 1.9 NG/ML (<3.6)
[2025-01-26 00:40] LABS: CPK CREATINE PHOSPHOKINASE 86.0 U/L (34-145); MB/CK RELATIVE INDEX 2.2 (< OR =4)
[2025-01-26] MEDS: NS (Normal Saline) 0.9% 1,000 ML IV STA (04:30)
[2025-01-26] MEDS: NALOXONE INJ 0.4 MG/1 ML VIAL IV PRN (05:14)
[2025-01-26] MEDS: NALOXONE INJ 0.4 MG/1 ML VIAL IV STA ×2 (06:33→22:43)
[2025-01-26] MEDS: NALOXONE HCL INJ 4 MG in D5W 496 ML IV SCH (08:04)
[2025-01-26] MEDS: PANTOPRAZOLE 40MG VIAL IV SCH (08:59)
[2025-01-26] MEDS ORDERED: TIZA10TA PO (09:18)
[2025-01-26] MEDS ORDERED: LIDO1PAD TOP (09:18)
[2025-01-26] MEDS ORDERED: MORP-69 PO (09:25)
[2025-01-26] MEDS ORDERED: HOME MED LIST COMPLETE! XX SCH (10:15)
[2025-01-26 10:18] LABS: PLATELET COUNT, AUTOMATED 228 10^3/uL (150-450)
[2025-01-26 10:45] LABS: ALT/SGPT 22 U/L (7.0-40); AST/SGOT 35 U/L (<34); CALCIUM LEVEL 7.8 MG/DL (8.5-10.1); CARBON DIOXIDE LEVEL 30 MMOL/L (20-31); CHLORIDE LEVEL 106 MMOL/L (98-107); CREATININE FOR GFR 0.52 MG/DL (0.55-1.30); GLOMERULAR FILTRATION RATE > 90.0 (>51); POTASSIUM SERUM 4.0 MMOL/L (3.5-5.1); SODIUM LEVEL 145 MMOL/L (136-145)
[2025-01-26] MEDS: ENOXAPARIN 40 MG/0.4 ML SYRINGE (J1650 PER 10MG) SC SCH (12:17)
[2025-01-26 23:08] LABS: ABG BASE EXCESS 1.1 (-2.0-2.0); ABG HCO3 28.4 MMOL/L (22.0-26.0); ABG O2 SATURATION 98.3 % (95.0-99.0); ABG PARTIAL PRESSURE CO2 56.1 mmHg (35.0-45.0); ABG PARTIAL PRESSURE O2 126.8 mmHg (75.0-100.0); ABG STANDARD HCO3 25.4 MMOL/L. (22.0-26.0); ABG TOTAL CO2 30.1 MMOL/L (22.0-29.0); ABG pH (ARTERIAL) 7.322 UNITS (7.350-7.450)
[2025-01-27] VITALS (28 sets, daily range): BP systolic 78–134; BP diastolic 51–70; TEMP 97.2–98.5; O2SAT 95–100
[2025-01-27 04:43] LABS: PLATELET COUNT, AUTOMATED 230 10^3/uL (150-450)
[2025-01-27 04:59] LABS: ALT/SGPT 17 U/L (7.0-40); AST/SGOT 23 U/L (<34); CALCIUM LEVEL 8.1 MG/DL (8.5-10.1); CARBON DIOXIDE LEVEL 30 MMOL/L (20-31); CHLORIDE LEVEL 103 MMOL/L (98-107); CREATININE FOR GFR 0.59 MG/DL (0.55-1.30); GLOMERULAR FILTRATION RATE > 90.0 (>51); POTASSIUM SERUM 3.4 MMOL/L (3.5-5.1); SODIUM LEVEL 142 MMOL/L (136-145)
[2025-01-27] MEDS: KCL 10MEQ/100ML SWI (KRUN) 10 MEQ in IV 1 EA IV SCH (05:25)
[2025-01-27] MEDS: LR 1,000 ML IV SCH (05:59)
[2025-01-27 06:28] LABS: ABG BASE EXCESS 1.7 (-2.0-2.0); ABG HCO3 29.7 MMOL/L (22.0-26.0); ABG O2 SATURATION 99.1 % (95.0-99.0); ABG PARTIAL PRESSURE O2 150.3 mmHg (75.0-100.0); ABG STANDARD HCO3 26.0 MMOL/L. (22.0-26.0); ABG TOTAL CO2 31.6 MMOL/L (22.0-29.0); ABG pH (ARTERIAL) 7.304 UNITS (7.350-7.450)
[2025-01-27 06:30] LABS: ABG PARTIAL PRESSURE CO2 61.2 mmHg (35.0-45.0)
[2025-01-27] MEDS ORDERED: ALBUTEROL SULFATE 2.5 MG/0.5 ML INH CONCENTRATE NEB SOLN NEB PRN (08:15)
[2025-01-27] MEDS: NALOXONE INJ 0.4 MG/1 ML VIAL IV STA (08:31)
[2025-01-27 08:52] LABS: MAGNESIUM LEVEL 1.8 MG/DL (1.8-2.4)
[2025-01-27 12:01] LABS: ABG BASE EXCESS 0.2 (-2.0-2.0); ABG HCO3 27.6 MMOL/L (22.0-26.0); ABG O2 SATURATION 98.2 % (95.0-99.0); ABG PARTIAL PRESSURE CO2 55.6 mmHg (35.0-45.0); ABG PARTIAL PRESSURE O2 105.8 mmHg (75.0-100.0); ABG STANDARD HCO3 24.7 MMOL/L. (22.0-26.0); ABG TOTAL CO2 29.3 MMOL/L (22.0-29.0); ABG pH (ARTERIAL) 7.313 UNITS (7.350-7.450)
[2025-01-27] MEDS: THIAMINE INJection 500 MG in NS 100 ML IV SCH (14:37)
[2025-01-27] MEDS ORDERED: LR 1,000 ML IV ONE (15:10)
[2025-01-27 15:11] LABS: CALCIUM LEVEL 8.2 MG/DL (8.5-10.1); CARBON DIOXIDE LEVEL 27 MMOL/L (20-31); CHLORIDE LEVEL 103 MMOL/L (98-107); CREATININE FOR GFR 0.63 MG/DL (0.55-1.30); GLOMERULAR FILTRATION RATE > 90.0 (>51); POTASSIUM SERUM 4.2 MMOL/L (3.5-5.1); SODIUM LEVEL 141 MMOL/L (136-145)
[2025-01-27] MEDS: LR 1,000 ML IV ONE (15:21)
[2025-01-28] VITALS (10 sets, daily range): BP systolic 96–129; BP diastolic 52–73; TEMP 97.8–98.4; O2SAT 95–100
[2025-01-28] MEDS: LIDOCAINE 5% PATCH TD SCH (04:37)
[2025-01-28 04:42] LABS: PLATELET COUNT, AUTOMATED 194 10^3/uL (150-450)
[2025-01-28 04:55] LABS: ALT/SGPT 16 U/L (7.0-40); AST/SGOT 22 U/L (<34); CALCIUM LEVEL 7.9 MG/DL (8.5-10.1); CARBON DIOXIDE LEVEL 26 MMOL/L (20-31); CHLORIDE LEVEL 103 MMOL/L (98-107); CREATININE FOR GFR 0.62 MG/DL (0.55-1.30); GLOMERULAR FILTRATION RATE > 90.0 (>51); MAGNESIUM LEVEL 1.6 MG/DL (1.8-2.4); POTASSIUM SERUM 3.9 MMOL/L (3.5-5.1); SODIUM LEVEL 142 MMOL/L (136-145)
[2025-01-28] MEDS: MAG SULF 1GM/100ML (MAG RUN) 1 GM in IV 1 EA IV SCH (05:44)
== END 2025-01-28 09:15 | disposition left against medical advice (07) | DRG 917 ==
LOC: M ED 19:15 → M ED INP 01-26 04:20 → M ICU 01-26 13:57
PROVIDERS: ADMIT Student in an Organized Health Care Education/Training Program; ATTEND Internal Medicine Pulmonary Disease
DX: T40.2X2A Poisoning by other opioids, intentional self-harm, initial encounter (principal); G93.41 Metabolic encephalopathy; J96.02 Acute respiratory failure with hypercapnia; J96.11 Chronic respiratory failure with hypoxia; E87.20 Acidosis, unspecified; J84.9 Interstitial pulmonary disease, unspecified; F11.20 Opioid dependence, uncomplicated; K21.9 Gastro-esophageal reflux disease without esophagitis; I10 Essential (primary) hypertension; E78.5 Hyperlipidemia, unspecified; R33.9 Retention of urine, unspecified; F10.10 Alcohol abuse, uncomplicated; Z99.81 Dependence on supplemental oxygen; J43.9 Emphysema, unspecified; M54.2 Cervicalgia; F17.210 Nicotine dependence, cigarettes, uncomplicated; G25.81 Restless legs syndrome; E55.9 Vitamin D deficiency, unspecified; F12.90 Cannabis use, unspecified, uncomplicated; G89.29 Other chronic pain; G50.0 Trigeminal neuralgia; Z86.16 Personal history of COVID-19; M81.0 Age-related osteoporosis without current pathological fracture; Z79.899 Other long term (current) drug therapy; Z79.82 Long term (current) use of aspirin

== ENCOUNTER 2025-01-28 10:19 | Inpatient (IN) | payer MEDICARE, BC ==
[~2025-01-28 10:19] MED LIST changes: +LIDO1PAD TOP; +MORP-69 PO
[2025-01-28] MEDS: HALOPERIDOL LACTATE 5 MG/ML VIAL IM ONE (10:57)
[2025-01-28] MEDS: diphenhydrAMINE 50 MG/ML VIAL IM ONE (10:57)
[2025-01-28 11:38] LABS: PLATELET COUNT, AUTOMATED 210 10^3/uL (150-450)
[2025-01-28 12:11] LABS: ETHYL ALCOHOL (ETHANOL) 0.005 % (0.000-0.010)
[2025-01-28 12:13] LABS: SALICYLATE LEVEL < 3.0 MG/DL (<30)
[2025-01-28 12:21] LABS: ALT/SGPT 20 U/L (7.0-40); AST/SGOT 42 U/L (<34); CALCIUM LEVEL 8.2 MG/DL (8.5-10.1); CARBON DIOXIDE LEVEL 23 MMOL/L (20-31); CHLORIDE LEVEL 101 MMOL/L (98-107); CREATININE FOR GFR 0.60 MG/DL (0.55-1.30); GLOMERULAR FILTRATION RATE > 90.0 (>51); POTASSIUM SERUM 3.9 MMOL/L (3.5-5.1); SODIUM LEVEL 140 MMOL/L (136-145)
[2025-01-28] MEDS ORDERED: HOME MED LIST COMPLETE! XX SCH (13:35)
[2025-01-28 13:55] LABS: AMPHETAMINES LEVEL URINE NEGATIVE (NEGATIVE); BARBITURATES URINE NEGATIVE (NEGATIVE)
[2025-01-28 13:56] LABS: COCAINE METABOLITE URINE NEGATIVE (NEGATIVE); METHADONE URINE NEGATIVE (NEGATIVE); PHENCYCLIDINE URINE NEGATIVE (NEGATIVE)
[2025-01-28 13:57] LABS: BENZODIAZEPINES URINE POSITIVE (NEGATIVE); CANNABINOIDS URINE POSITIVE (NEGATIVE); OPIATES URINE POSITIVE (NEGATIVE)
[2025-01-28] MEDS ORDERED: OLANZapine 5 MG TAB PO PRN (16:50)
[2025-01-28] MEDS ORDERED: MOM 30 ML SUSPENSION UDC PO PRN (16:50)
[2025-01-28] MEDS ORDERED: IBUPROFEN 400 MG TAB PO PRN (16:50)
[2025-01-28] MEDS ORDERED: ALBUTEROL 90 MCG/ACT 8 GM HFA INHALER INH PRN (16:50)
[2025-01-28] MEDS: LORazepam 1 MG TAB PO PRN (21:11)
[2025-01-28] MEDS: FLUoxetine 20 MG CAP PO SCH (22:12)
[2025-01-28 23:08] VITALS: BP 149/73; TEMP 96.9; O2SAT 99
[2025-01-29 06:22] VITALS: BP 142/68; TEMP 97.8; O2SAT 98
[2025-01-29] MEDS: NICOTINE 14 MG/24 HR TRANSDERMAL TD SCH (09:00)
[2025-01-29] MEDS ORDERED: FLUoxetine 20 MG CAP PO SCH (09:00)
[2025-01-29 15:33] VITALS: BP 143/83; TEMP 98.7; O2SAT 100
[2025-01-29 20:56] VITALS: O2SAT 99
[2025-01-30] VITALS (7 sets, daily range): BP systolic 155–191; BP diastolic 77–114; TEMP 98.1–98.3; O2SAT 62–100
[2025-01-30] MEDS: FLUoxetine 20 MG CAP PO SCH (09:00)
[2025-01-30] MEDS: ONDANSETRON 4MG ORAL DISINTEGRATING TAB SL PRN (09:55)
[2025-01-30] MEDS ORDERED: LOPERAMIDE 2 MG CAPLET PO PRN (10:40)
[2025-01-30] MEDS: cloNIDine HCL 0.3 MG/24 HR PATCH TOP SCH (10:57)
[2025-01-30] MEDS: ALPRAZolam 0.5 MG TAB PO PRN (11:48)
[2025-01-30] MEDS: **hydrALAZINE HCL** 25 MG TAB PO PRN (14:51)
[2025-01-30] MEDS: MAALOX 30 ML SUSP *UDC PO PRN (17:04)
[2025-01-30] MEDS: traZODone 50 MG TAB PO PRN (20:25)
[2025-01-30] MEDS: ACETAMINOPHEN 325 MG TAB PO PRN (20:26)
[2025-01-30] MEDS: HALOPERIDOL 5 MG TAB PO PRN (22:08)
[2025-01-31] VITALS (9 sets, daily range): BP systolic 68–170; BP diastolic 40–98; TEMP 98.4; O2SAT 98–99
[2025-01-31] MEDS ORDERED: METOCLOPRAMIDE 5 MG TAB PO SCH (09:00)
[2025-01-31] MEDS ORDERED: PANTOPRAZOLE 40MG TAB PO SCH (09:00)
[2025-01-31] MEDS ORDERED: amLODIPine 10 MG TAB PO SCH (09:00)
[2025-01-31] MEDS ORDERED: SCOPOLAMINE 1MG TRANSDERMAL PATCH TOP SCH (09:00)
[2025-01-31] MEDS ORDERED: cloNIDine HCL 0.1 MG/24 HR PATCH TOP SCH (09:00)
[2025-01-31] MEDS ORDERED: **hydrALAZINE HCL** 25 MG TAB PO SCH (09:00)
[2025-01-31] MEDS ORDERED: METOCLOPRAMIDE 5 MG TAB PO PRN (09:35)
[2025-01-31] MEDS ORDERED: NS (Normal Saline) 0.9% 1,000 ML IV ONE (11:10)
[2025-01-31 11:48] LABS: CALCIUM LEVEL 9.2 MG/DL (8.5-10.1); CARBON DIOXIDE LEVEL 31 MMOL/L (20-31); CHLORIDE LEVEL 93 MMOL/L (98-107); CREATININE FOR GFR 0.74 MG/DL (0.55-1.30); GLOMERULAR FILTRATION RATE > 90.0 (>51); POTASSIUM SERUM 3.5 MMOL/L (3.5-5.1); SODIUM LEVEL 137 MMOL/L (136-145)
== END 2025-01-31 11:41 | disposition short-term general hospital (02) | DRG 897 ==
LOC: M ED 10:19 → M ED INP 16:46 → M PSY 20:40
PROVIDERS: ADMIT Internal Medicine; ATTEND Internal Medicine
DX: F19.150 Other psychoactive substance abuse with psychoactive substance-induced psychotic disorder with delusions (principal); J84.9 Interstitial pulmonary disease, unspecified; J96.10 Chronic respiratory failure, unspecified whether with hypoxia or hypercapnia; F33.1 Major depressive disorder, recurrent, moderate; T40.2X2A Poisoning by other opioids, intentional self-harm, initial encounter; T42.4X2A Poisoning by benzodiazepines, intentional self-harm, initial encounter; I10 Essential (primary) hypertension; F41.1 Generalized anxiety disorder; K21.9 Gastro-esophageal reflux disease without esophagitis; I49.5 Sick sinus syndrome; G89.29 Other chronic pain; M54.9 Dorsalgia, unspecified; F10.129 Alcohol abuse with intoxication, unspecified; Z90.49 Acquired absence of other specified parts of digestive tract; R11.10 Vomiting, unspecified; R19.7 Diarrhea, unspecified; Z99.81 Dependence on supplemental oxygen; Z95.0 Presence of cardiac pacemaker; Z79.899 Other long term (current) drug therapy; Z79.891 Long term (current) use of opiate analgesic

== ENCOUNTER 2025-01-31 11:14 | Observation (INO) | payer MEDICARE, BC ==
[~2025-01-31] VITALS: Ht 147.3 cm; Wt 41.2 kg
[2025-01-31 11:50] VITALS: BP 88/52; TEMP 97.9; O2SAT 99
[2025-01-31] MEDS: NS (Normal Saline) 0.9% 1,000 ML IV ONE (12:10)
[2025-01-31] MEDS ORDERED: ALPRAZolam 0.5 MG TAB PO PRN (12:40)
[2025-01-31] MEDS ORDERED: IPRATROPIUM 0.5 MG/ALBUTEROL 2.5 MG INH SOL UD 3 ML NEB PRN (12:40)
[2025-01-31 13:02] VITALS: BP 110/82
[2025-01-31] MEDS ORDERED: ONDANSETRON 4MG/2ML VIAL IV PRN (13:15)
[2025-01-31 14:07] VITALS: BP 170/90
[2025-01-31] MEDS ORDERED: hydrALAZINE 20 MG/ML 1 ML VIAL IV PRN (14:15)
[2025-01-31] MEDS: PANTOPRAZOLE 40MG VIAL IV SCH (14:26)
[2025-01-31] MEDS: ENOXAPARIN 40 MG/0.4 ML SYRINGE (J1650 PER 10MG) SC SCH (14:28)
[2025-01-31] MEDS: MORPHINE SULFATE TAB EXT REL 30 MG PO SCH (14:28)
[2025-01-31 15:17] VITALS: BP 120/60; TEMP 97.6; O2SAT 99
[2025-01-31] MEDS: D5W/0.45% SODIUM CHLORIDE 1,000 ML IV SCH (15:37)
[2025-01-31] MEDS: ACETAMINOPHEN 325 MG TAB PO PRN (17:41)
[2025-01-31 20:08] VITALS: BP 108/80; TEMP 99; O2SAT 98
[2025-01-31] MEDS: RAMELTEON 8 MG TAB PO SCH (22:41)
[2025-02-01 00:16] VITALS: BP 120/86; TEMP 98.1; O2SAT 96
[2025-02-01 03:48] VITALS: BP 104/70; TEMP 98.3; O2SAT 97
[2025-02-01 05:05] LABS: BASO # 0.1 10^3/uL (0.0-0.2); BASO % 0.6 % (0.0-1.0); EOS # 0.1 10^3/uL (0.0-0.5); EOS % 0.6 % (0.0-3.0); LYMPH # 3.4 10^3/uL (1.5-5.0); LYMPH % 31.1 % (24.0-44.0); MONO # 1.0 10^3/uL (0.0-0.8); MONO % 9.0 % (2.0-8.0); NEUTROPHILS # 6.4 10^3/uL (1.5-8.5); NEUTROPHILS % 58.4 % (36.0-66.0); PLATELET COUNT, AUTOMATED 238 10^3/uL (150-450)
[2025-02-01 05:47] LABS: CALCIUM LEVEL 8.1 MG/DL (8.5-10.1); CARBON DIOXIDE LEVEL 31 MMOL/L (20-31); CHLORIDE LEVEL 103 MMOL/L (98-107); CREATININE FOR GFR 0.68 MG/DL (0.55-1.30); GLOMERULAR FILTRATION RATE > 90.0 (>51); MAGNESIUM LEVEL 2.0 MG/DL (1.8-2.4); POTASSIUM SERUM 2.8 MMOL/L (3.5-5.1); SODIUM LEVEL 143 MMOL/L (136-145)
[2025-02-01] MEDS: POTASSIUM CHLORIDE 10MEQ SR TABLET PO ONE (06:49)
[2025-02-01] MEDS: KCL 10MEQ/100ML SWI (KRUN) 10 MEQ in IV 1 EA IV SCH (06:50)
[2025-02-01 07:33] VITALS: BP 142/60; TEMP 97.3; O2SAT 99
[2025-02-01] MEDS: FLUoxetine 20 MG CAP PO SCH (08:12)
[2025-02-01 11:45] VITALS: BP 110/68; TEMP 98.3; O2SAT 98
[2025-02-01 15:33] VITALS: BP 110/62; TEMP 98.6; O2SAT 98
[2025-02-01 15:35] LABS: CALCIUM LEVEL 8.0 MG/DL (8.5-10.1); CARBON DIOXIDE LEVEL 29 MMOL/L (20-31); CHLORIDE LEVEL 107 MMOL/L (98-107); CREATININE FOR GFR 0.69 MG/DL (0.55-1.30); GLOMERULAR FILTRATION RATE > 90.0 (>51); POTASSIUM SERUM 4.2 MMOL/L (3.5-5.1); SODIUM LEVEL 143 MMOL/L (136-145)
== END 2025-02-01 17:32 | disposition home or self-care (01) ==
LOC: M PCU 11:45 → INTOOBSV 11:45
PROVIDERS: ADMIT Internal Medicine; ATTEND Internal Medicine
DX: I95.9 Hypotension, unspecified (principal); R11.2 Nausea with vomiting, unspecified; J96.10 Chronic respiratory failure, unspecified whether with hypoxia or hypercapnia; I10 Essential (primary) hypertension; G89.29 Other chronic pain; I49.5 Sick sinus syndrome; R45.851 Suicidal ideations; F32.A Depression, unspecified; Z79.899 Other long term (current) drug therapy
CPT/HCPCS: 36415; 80048; 83735; 85025; 96361; 96372; 96374; 96376; 99222; G0378; J1650; J2470